=== PATIENT | male | born 1965 | race Caucasian/White ===

== ENCOUNTER → 2017-04-21 06:59 | Outpatient (CLI) | payer BC, SELFPAY ==
--- NOTE | 2017-04-21 | CA_ITS ---
PROCEDURE: 2-D M-mode and color Doppler study INDICATIONS FOR THE TEST: Chest pain+ COPD Heart Murmur Tobacco Smoking+ Palpitations Fatigue+ Syncope Edema+ Hypertension+Diabetes Mellitus Rheumatic Fever SOB+MEDINA+Obesity+Hyperlipidemia Family History HD Additional History Definity contrast utilized PATIENT INFORMATION HEIGHT: 70 WEIGHT: 255 GENDER: Male B/P: 152/99 2-D/M-MODE INTERPRETATION: 2-D MEASUREMENTS OBSERVED VALUES IN CMS Right Ventricular Dimension (RVDd) 2.3 Interventricular Septum (Thickness)(IVsd) 1.1 Left Ventricular Internal Dimensions(LVIDd) 5.4 Left Ventricular Posterior Wall (Thickness)(LVPWd) 1.1 Aortic Root 3.3 Aortic Cusp Separation 2.2 Left Atrial Dimensions (LAD) 4.8 2D 1. Left atrium is moderately enlarged, left ventricle is normal size, there is mild concentric left ventricular hypertrophy, visually estimated ejection fraction approximately 40-45%, there appears to be moderate hypokinesis involving mid to distal septum and apical wall, Definity contrast was utilized to delineate endocardial surfaces. 2. The right atrium and right ventricle are relatively normal size and function. 3. The aortic valve is minimally thickened and fibrosed. 4. The mitral and tricuspid valve leaflets are minimally thickened. 5. The pulmonic valve is poorly visualized. 6. No significant pericardial effusion noted. DOPPLER INTERROGATION: Doppler interrogation of the aortic, mitral and tricuspid valvular presence of mild to moderate mitral and mild tricuspid regurgitation, tricuspid regurgitant jet velocity is insufficient for calculation of the right ventricular systolic pressure, grade 1 diastolic dysfunction seen with tissue Doppler evidence of raised left atrial pressure. CONCLUSION: 1. Moderately enlarged left atrium, normal left ventricular size, mild concentric left ventricular hypertrophy, visually estimated ejection fraction of 40-45%, with the segmental wall motion abnormality described above, Definity contrast was utilized to delineate endocardial surfaces. Grade 1 diastolic dysfunction seen with tissue Doppler evidence of raised left atrial pressure. 2. Mild mitral and tricuspid regurgitation 3. No significant pericardial effusion noted.
--- NOTE | 2017-04-21 07:06 | NM_ITS ---
History and Indications: Hypertension, diabetes, chronic tobacco use chest pain and fatigue Procedure: Patient received a 0.4 mg of Lexiscan, resting heart rate was 74 bpm pressure 152/99, with Lexiscan maximum heart rate achieved was 103 bpm is less than 85% of the maximum predicted heart rate and a blood pressure was 128/88, with Lexiscan patient complained chest pressure and shortness of breath. Electrocardiogram: Resting electrocardiogram showed sinus rhythm nonspecific ST-T changes, with Lexiscan there is less than 1.[address] segment depression noted from the baseline EKG. The EKG portion of the Lexiscan Myoview is nondiagnostic. Cardiac stress and resting SPECT images: Cardiac stress and the rest images were obtained using technetium 99 Myoview 10.6 mCi at rest and 30.4 mCi at stress, gated SPECT further analysis of segmental wall motion and calculation of the ejection fraction was also done. Cardiac stress and rest SPECT images show decreased tracer activity in the anteroapical, apical and inferoapical wall in a fixed pattern consistent with area of prior nontransmural myocardial scarring, no significant tiffanie-infarct ischemia seen, computer derived ejection fraction 35%, with marked hypokinesis involving the anteroapical, apex and inferoapical wall. Right ventricle is normal size and contractility, left ventricle is dilated both stress and rest. Conclusion: 1. The EKG portion of the Lexiscan Myoview is nondiagnostic. 2. Scintigraphic evidence of nontransmural myocardial scarring involving the anteroapical, apex and inferoapical wall, computer derived ejection action is 35% with multiple segmental wall motion abnormality as described above. Left ventricle is dilated both stress and rest, right ventricle is normal size and contractility. 3. Abnormal Lexiscan Myoview study.
--- NOTE | 2017-04-21 09:38 | HMH.ITSHM ---
CYMBALTA, HCTZ, LOSARTAN/HCTZ, SEROQUEL
== END ==
PROVIDERS: Family Provider Family Medicine; PCP Family Medicine; Visit Provider Internal Medicine
DX: R06.00 Dyspnea, unspecified (principal); R51 Headache; E78.2 Mixed hyperlipidemia; G47.9 Sleep disorder, unspecified; I10 Essential (primary) hypertension; G47.00 Insomnia, unspecified; R53.83 Other fatigue; I20.9 Angina pectoris, unspecified
CPT/HCPCS: 78452; 93017; 93306; A9502; J2785

== ENCOUNTER → 2017-05-04 14:24 | Outpatient (CLI) | payer BC, SELFPAY ==
[2017-05-04 17:25] LABS: Anion Gap 12.7 mEq/L (5-15); Blood Urea Nitrogen 15 mg/dL (7-18); Carbon Dioxide 29 mmol/L (21.0-32.0); Chloride 103 mmol/L (98-107); Creatinine,Serum 1.06 mg/dL (0.70-1.30); Estimated Glomerular Filt Rate 74 ml/min (>60); GFR (African American) 89 ML/MIN (>60); Glucose 89 mg/dL (74-106); Potassium 4.7 mmoL/L (3.5-5.1); Sodium 140 mmol/L (136-145)
== END ==
PROVIDERS: Family Provider Family Medicine; PCP Family Medicine; Visit Provider Internal Medicine Cardiovascular Disease
DX: I10 Essential (primary) hypertension (principal); R94.39 Abnormal result of other cardiovascular function study
CPT/HCPCS: 36415; 80048

== ENCOUNTER → 2017-05-05 06:57 | Day surgery (SDC) | payer BC, SELFPAY ==
[2017-05-05] VITALS (14 sets, daily range): BP systolic 113–160; BP diastolic 58–99; PULSE 57–86; RESP 16–18; TEMP 36.6; O2SAT 90–96; BMI 37.4; BMI 36.1
--- NOTE | 2017-05-05 07:00 | IR_ITS ---
CARDIAC CATHETERIZATION DATE OF CATHETERIZATION:05/05/2017 8:29 AM PROCEDURES: 1. Left heart catheterization 2. Left ventriculogram 3. Selective coronary angiogra INDICATION FOR TEST: 1. Abnormal high risk Myoview 2. Systolic congestive heart failure ejection fraction 30% 3. Angina pectoris 4. Risk factors for coronary artery disease Informed consent was obtained prior to the procedure. COMPLICATIONS: None ESTIMATED BLOOD LOSS: Less than 10 ml. TECHNIQUE: One percent lidocaine used to anesthetize the right anterior aspect of the wrist. The right radial artery was accessed via the Seldinger technique. A 6 Iraqi sheath was placed in the right radial artery. 2.5 mg of verapamil, 800 mcg of nitroglycerin and 5000 U Heparin were given through the arterial sheath. The trap catheter was also used to perform left heart catheterization and left ventriculography. At the end of the procedure the patient was transferred to the post-op holding area in stable condition for arterial sheath removal. ANGIOGRAPHIC RESULTS: 1. The left main artery normal 2. The left anterior descending artery has proximal mild luminal irregularities with mid vessel tendon 20% nonflow limiting stenoses 3. The circumflex artery is a dominant vessel and gives rise to a large ramus intermedius which has proximal eccentric 20% stenosis. The true circumflex artery itself is a large caliber vessel with mild 10-20% luminal irregularities 4. The right coronary artery is a nondominant vessel and has an 80% stenosis after the RV marginal branch. Distally the vessel supplies a small amount of myocardium 5. The PALMA ventriculogram reveals left ventricular dilatation with reduced ejection fraction estimated at 30% 6. The left ventricular end-diastolic pressure 20 mmHg IMPRESSION: 1. Nonischemic dilated cardiomyopathy 2. Nonflow limiting coronary artery disease 3. Reduced ejection fraction with left ventricular dilatation 4. Mildly elevated LVEDP PLAN: 1. Standard therapy for dilated cardiomyopathy 2. Risk factor modification
[2017-05-05 07:47] LABS: Hemoglobin 15.3 g/dL (14.1-18.0); White Blood Count 6.5 K/mm3 (4.8-10.8)
[2017-05-05 07:48] LABS: Basophils % 0.7 % (0.1-2.0); Hematocrit 47.4 % (42.0-52.0); Lymphocytes # 1.9 K/mm3 (0.7-4.5); Lymphocytes % 30.2 K/mm3 (10-50); Mean Corpuscular HGB Conc 32.2 g/dL (31.8-35.4); Mean Corpuscular Hemoglobin 27.8 pg (27.0-31.2); Mean Corpuscular Volume 86.1 fl (80-94); Mean Platelet Volume 8.9 fl (7.4-10.4); Monocytes % 7.4 % (1.7-9.3); Neutrophils # 3.8 K/mm3 (1.8-7.8); Neutrophils % 58.8 % (37.0-80.0); Platelet Count 143 K/mm3 (142-424); Red Cell Distribution Width 13.3 % (11.5-17.5)
[2017-05-05 07:49] LABS: Eosinophils # 0.2 K/mm3 (0.0-0.4); Monocytes # 0.5 K/mm3 (0.1-1.0)
[2017-05-05 07:52] LABS: Anion Gap 9.8 mEq/L (5-15); Blood Urea Nitrogen 18 mg/dL (7-18); Carbon Dioxide 29 mmol/L (21.0-32.0); Chloride 105 mmol/L (98-107); Creatinine Clearance Estimated 154 mL/min (0-300); Creatinine,Serum 0.93 mg/dL (0.70-1.30); Estimated Glomerular Filt Rate 86 ml/min (>60); GFR (African American) 104 ML/MIN (>60); Glucose 99 mg/dL (74-106); Potassium 3.8 mmoL/L (3.5-5.1); Sodium 140 mmol/L (136-145)
== END ==
PROVIDERS: Family Provider Family Medicine; PCP Family Medicine; Visit Provider Internal Medicine
DX: I10 Essential (primary) hypertension (principal); I20.9 Angina pectoris, unspecified; E78.2 Mixed hyperlipidemia; Z72.0 Tobacco use; I50.20 Unspecified systolic (congestive) heart failure; I42.0 Dilated cardiomyopathy; R53.83 Other fatigue; R06.09 Other forms of dyspnea
CPT/HCPCS: 80048; 85025; 93458; 99152; C1725; C1769; J1644; Q9967

== ENCOUNTER → 2017-05-19 09:19 | Outpatient (CLI) | payer BC, SELFPAY ==
[2017-05-19 09:39] LABS: Anion Gap 9.3 mEq/L (5-15); Blood Urea Nitrogen 19 mg/dL (7-18); Carbon Dioxide 31 mmol/L (21.0-32.0); Chloride 103 mmol/L (98-107); Creatinine,Serum 1.14 mg/dL (0.70-1.30); Estimated Glomerular Filt Rate 68 ml/min (>60); GFR (African American) 82 ML/MIN (>60); Glucose 116 mg/dL (74-106); Sodium 139 mmol/L (136-145)
[2017-05-19 09:44] LABS: Potassium 4.3 mmoL/L (3.5-5.1)
== END ==
PROVIDERS: Family Provider Family Medicine; PCP Family Medicine; Visit Provider Internal Medicine Cardiovascular Disease
DX: R06.83 Snoring (principal); R06.00 Dyspnea, unspecified; I42.8 Other cardiomyopathies; I50.23 Acute on chronic systolic (congestive) heart failure; I10 Essential (primary) hypertension
CPT/HCPCS: 36415; 80048

== ENCOUNTER → 2017-05-30 12:24 | Outpatient (CLI) | payer BC, SELFPAY ==
[2017-05-30 14:02] LABS: Anion Gap 10.4 mEq/L (5-15); Blood Urea Nitrogen 20 mg/dL (7-18); Carbon Dioxide 31 mmol/L (21.0-32.0); Chloride 105 mmol/L (98-107); Creatinine,Serum 1.18 mg/dL (0.70-1.30); Estimated Glomerular Filt Rate 65 ml/min (>60); GFR (African American) 79 ML/MIN (>60); Glucose 90 mg/dL (74-106); Potassium 4.4 mmoL/L (3.5-5.1); Sodium 142 mmol/L (136-145)
== END ==
PROVIDERS: Family Provider Family Medicine; PCP Family Medicine; Visit Provider Internal Medicine Cardiovascular Disease
DX: I25.118 Atherosclerotic heart disease of native coronary artery with other forms of angina pectoris (principal); I50.23 Acute on chronic systolic (congestive) heart failure; I42.8 Other cardiomyopathies; E78.2 Mixed hyperlipidemia
CPT/HCPCS: 36415; 80048; 83880

== ENCOUNTER → 2017-06-09 09:10 | Outpatient (CLI) | payer BC, SELFPAY ==
[2017-06-09 09:33] LABS: Anion Gap 5.7 mEq/L (5-15); Blood Urea Nitrogen 20 mg/dL (7-18); Carbon Dioxide 33 mmol/L (21.0-32.0); Chloride 103 mmol/L (98-107); Creatinine,Serum 1.25 mg/dL (0.70-1.30); Estimated Glomerular Filt Rate 61 ml/min (>60); GFR (African American) 74 ML/MIN (>60); Glucose 100 mg/dL (74-106); Potassium 4.7 mmoL/L (3.5-5.1); Sodium 137 mmol/L (136-145)
== END ==
PROVIDERS: Visit Provider Internal Medicine Cardiovascular Disease
DX: E78.2 Mixed hyperlipidemia (principal); I10 Essential (primary) hypertension
CPT/HCPCS: 36415; 80048; 83880

== ENCOUNTER → 2017-06-28 08:20 | Outpatient (CLI) | payer BC, SELFPAY ==
[2017-06-28 09:24] LABS: Anion Gap 10.7 mEq/L (5-15); Blood Urea Nitrogen 17 mg/dL (7-18); Carbon Dioxide 34 mmol/L (21.0-32.0); Chloride 103 mmol/L (98-107); Creatinine,Serum 1.28 mg/dL (0.70-1.30); Estimated Glomerular Filt Rate 59 ml/min (>60); GFR (African American) 72 ML/MIN (>60); Glucose 120 mg/dL (74-106); Potassium 3.7 mmoL/L (3.5-5.1); Sodium 144 mmol/L (136-145)
== END ==
PROVIDERS: Internal Medicine Cardiovascular Disease; Visit Provider Internal Medicine
DX: I10 Essential (primary) hypertension (principal); I50.20 Unspecified systolic (congestive) heart failure; E78.2 Mixed hyperlipidemia; I42.8 Other cardiomyopathies; I50.23 Acute on chronic systolic (congestive) heart failure; I25.118 Atherosclerotic heart disease of native coronary artery with other forms of angina pectoris; R53.83 Other fatigue
CPT/HCPCS: 36415; 80048

== ENCOUNTER → 2017-07-04 13:22 | Outpatient (CLI) | payer BC, SELFPAY ==
--- NOTE | 2017-07-04 13:26 | NM_ITS ---
Cardiac MUGA scan Indication for the test: Congestive heart failure, hypertension, tobacco use, chest pain, shortness of breath and fatigue Procedure: Patient received total of 24.2 mCi of technetium 99 sodium pretechnitate, resting MUGA scan was performed in the standard view. Results: Resting MUGA scan shows an ejection fraction of 48% with no obvious regional wall motion abnormality.
== END ==
PROVIDERS: Family Provider Family Medicine; PCP Family Medicine; Visit Provider Internal Medicine Cardiovascular Disease
DX: I42.8 Other cardiomyopathies (principal); I50.23 Acute on chronic systolic (congestive) heart failure; E78.2 Mixed hyperlipidemia; R51 Headache; I50.20 Unspecified systolic (congestive) heart failure; I25.10 Atherosclerotic heart disease of native coronary artery without angina pectoris; I20.9 Angina pectoris, unspecified; I10 Essential (primary) hypertension; R53.83 Other fatigue; F17.200 Nicotine dependence, unspecified, uncomplicated
CPT/HCPCS: 78473; A9512; A9560

== ENCOUNTER 2017-10-19 13:30 | Outpatient (RCR) | payer BC, SELFPAY ==
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
== END 2017-10-19 13:31 | disposition home or self-care (01) ==
LOC: PT 13:30
PROVIDERS: Family Provider Family Medicine; PCP Family Medicine; Visit Provider Nurse Practitioner
DX: S16.1XXA Strain of muscle, fascia and tendon at neck level, initial encounter (principal); S43.492A Other sprain of left shoulder joint, initial encounter
CPT/HCPCS: 97010; 97014; 97110; 97140; 97163; G0283

== ENCOUNTER → 2017-10-26 10:50 | Outpatient (CLI) | payer BC, SELFPAY ==
--- NOTE | 2017-10-26 10:56 | XR_ITS ---
EXAM: XR thoracic spine 3V HISTORY: ITS.REASON: DECREASED SENSATION Comparison: None FINDINGS: There is a bone plate along the lower cervical spine. Normal alignment. Mild degenerative disc disease involves the midthoracic spine with minimal endplate osteophytes. No fracture or dislocation. No lytic or blastic change. IMPRESSION: Mild thoracic spondylosis, no acute finding
--- NOTE | 2017-10-26 10:56 | XR_ITS ---
EXAM: XR cervical spine 5V HISTORY: ITS.REASON: DECREASED SENSATION ORDERING PHYSICIAN: Lesli Hallman PATIENT AGE: 51 years COMPARISON: None FINDINGS: Normal alignment. Prior anterior cervical disc fusion at C5-C6 and C7 with anterior bone plate. Normal alignment. Moderate foraminal narrowing is present on the right at C2-C3 from facet hypertrophic change and with mild foraminal narrowing on the right at C5-6 from uncovertebral hypertrophy. Left-sided foraminal narrowing is present at C4-5 and 56 from uncovertebral hypertrophy. IMPRESSION: 1. Prior anterior cervical disc fusion at C5-C6 and C6-C7. 2. Facet and uncovertebral hypertrophy with foraminal narrowing as described above.
== END ==
PROVIDERS: PCP Nurse Practitioner; Visit Provider Nurse Practitioner
DX: R20.8 Other disturbances of skin sensation (principal)
CPT/HCPCS: 72050; 72072

== ENCOUNTER → 2017-11-06 10:56 | Outpatient (CLI) | payer BC, SELFPAY ==
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
== END ==
PROVIDERS: Family Provider Family Medicine; PCP Nurse Practitioner; Visit Provider Nurse Practitioner
DX: R20.8 Other disturbances of skin sensation (principal); R29.898 Other symptoms and signs involving the musculoskeletal system
CPT/HCPCS: 72141; 76376

== ENCOUNTER → 2017-11-27 12:40 | Outpatient (POV) | payer BC, SELFPAY ==
[2017-11-27 13:00] VITALS: BP 139/85; PULSE 79; RESP 18; O2SAT 98
--- NOTE | 2017-11-27 13:28 | HMH.PMCON ---
Assessment and Plan (1) Degenerative disc disease Current visit: Yes Status: Chronic Qualifiers: Spinal region: mid-cervical Mid-cervical spinal level: unspecified Qualified Code(s): M50.320 - Other cervical disc degeneration, mid-cervical region, unspecified level Category: Medical - Assessment and plan all Dx Assessment and Plan for all problems:: I discussed with the patient that there is not much we can do until he is past surgery. We will start him on Celebrex 100 mg 1 p.o. twice daily and see if this helps with some of his joint pain. Follow up with him in 2 months. This note was dictated using voice recognition software and may contain errors or omissions HPI - Data of Consult Consult date: 11/27/17 Requesting Physician: Nyla Alvarez APRN Primary Care Provider: Lesli Hallman Family Provider: Maged Sharma MD - Consult Narrative Reason for consult: Arthritic pain History of present illness: Mr. Bassett is a 51 year old male presents today for consultation in regard to his arthritic pain. Patient appears today in a cervical neck brace. Patient states he has surgery scheduled for this upcoming Monday. This will be his stated skin surgery by Dr. Hudson. Patient states most of his pain is generalized in all over. Patient states cold weather increases his pain while heat decreases his pain. Patient states he asked to go to an arthritis specialist and was sent to us. Patient is currently working on getting his disability. Patient states he is tried chiropractic, physical therapy, massage therapy with no relief. Patient rates his pain today a 7 out of 10. Patient states all of his joints hurt. Patient has had his left knee replaced. Patient is having left knee pain 2. Patient is not on any anti-inflammatories. Patient states he takes ibuprofen [id number]. CC: Nyla Alvarez APRN [facility] History I have reviewed the patient's past medical history: Yes Medical History: Reports:: Hyperlipidemia, Hypertension, Migraine Denies:: Cancer, Diabetes Mellitus Type 1, Diabetes Mellitus Type 2, Internal Pacemaker, MRSA, Seizures Laterality Cases: Bilateral: Arthroscopy Knee Other Surgeries: Yes: Cardiac Catheterization, Other. No: Pacemaker Amputation: No Fractures: No - *Social History Smoking Status: Current every day smoker Tobacco Type: cigarettes # Packs/Day (cigarettes): 1 Alcohol Intake: never Alcohol Intake Frequency:: other Occupational Status: unemployed Housing: house Household Members: spouse - Psychiatric History Expresses thoughts of harming self/others: None Suicide Plan Description: No Plan *Family Hx:: Coronary Artery Disease Review of Systems - Review of Systems ROS General: no recent weight change, no fever, no sleep disturbances Respiratory: no cough, no shortness of air, no recurring pulmonary infections Cardiovascular/Peripheral Vascular: No chest pain, No palpitations, no edema, no shortness of breath. Gastrointestinal: no incontinence, normal bowel movements reported Genitourinary: no incontinence Musculoskeletal: Neck pain, back pain, knee pain Psychiatric: normal mood/ affect Neurological: [denies weakness in extremities], [denies balance issues] Meds Home Medications Medication Instructions Recorded Confirmed Type duloxetine 60 mg capsule,delayed 60 mg PO QDAY 04/19/17 07/26/17 History release Donepezil HCl [Aricept 5mg] 5 mg PO DAILY 07/26/17 07/26/17 History clonazePAM [Clonazepam] 0.5 mg PO BID 07/26/17 07/26/17 History aripiprazole 10 mg tablet 5 mg PO DAILY tab 09/07/17 History isosorbide mononitrate ER 120 mg 60 mg PO QAM tab 09/07/17 History tablet,extended release 24 hr lamotrigine 150 mg tablet 200 mg PO BID tab 09/07/17 History metoprolol succinate ER 25 mg 25 mg PO BID tab 09/07/17 History tablet,extended release 24 hr quetiapine 200 mg tablet 100 mg PO QDAY tab 09/07/17 History Doroteo
--- NOTE | 2017-11-27 13:31 | P.CONS_ITS ---
Assessment and Plan (1) Degenerative disc disease Current visit: Yes Status: Chronic Qualifiers: Spinal region: mid-cervical Mid-cervical spinal level: unspecified Qualified Code(s): M50.320 - Other cervical disc degeneration, mid-cervical region, unspecified level Category: Medical - Assessment and plan all Dx Assessment and Plan for all problems:: I discussed with the patient that there is not much we can do until he is past surgery. We will start him on Celebrex 100 mg 1 p.o. twice daily and see if this helps with some of his joint pain. Follow up with him in 2 months. This note was dictated using voice recognition software and may contain errors or omissions HPI - Data of Consult Consult date: 11/27/17 Requesting Physician: Nyla Alvarez APRN Primary Care Provider: Lesli Hallman Family Provider: Maged Sharma MD - Consult Narrative Reason for consult: Arthritic pain History of present illness: Mr. Bassett is a 51 year old male presents today for consultation in regard to his arthritic pain. Patient appears today in a cervical neck brace. Patient states he has surgery scheduled for this upcoming Monday. This will be his stated skin surgery by Dr. Hudson. Patient states most of his pain is generalized in all over. Patient states cold weather increases his pain while heat decreases his pain. Patient states he asked to go to an arthritis specialist and was sent to us. Patient is currently working on getting his disability. Patient states he is tried chiropractic, physical therapy, massage therapy with no relief. Patient rates his pain today a 7 out of 10. Patient states all of his joints hurt. Patient has had his left knee replaced. Patient is having left knee pain 2. Patient is not on any anti-inflammatories. Patient states he takes ibuprofen [id number]. CC: Nyla Alvarez APRN [facility] History I have reviewed the patient's past medical history: Yes Medical History: Reports:: Hyperlipidemia, Hypertension, Migraine Denies:: Cancer, Diabetes Mellitus Type 1, Diabetes Mellitus Type 2, Internal Pacemaker, MRSA, Seizures Laterality Cases: Bilateral: Arthroscopy Knee Other Surgeries: Yes: Cardiac Catheterization, Other. No: Pacemaker Amputation: No Fractures: No - *Social History Smoking Status: Current every day smoker Tobacco Type: cigarettes # Packs/Day (cigarettes): 1 Alcohol Intake: never Alcohol Intake Frequency:: other Occupational Status: unemployed Housing: house Household Members: spouse - Psychiatric History Expresses thoughts of harming self/others: None Suicide Plan Description: No Plan *Family Hx:: Coronary Artery Disease Review of Systems - Review of Systems ROS General: no recent weight change, no fever, no sleep disturbances Respiratory: no cough, no shortness of air, no recurring pulmonary infections Cardiovascular/Peripheral Vascular: No chest pain, No palpitations, no edema, no shortness of breath. Gastrointestinal: no incontinence, normal bowel movements reported Genitourinary: no incontinence Musculoskeletal: Neck pain, back pain, knee pain Psychiatric: normal mood/ affect Neurological: [denies weakness in extremities], [denies balance issues] Meds Home Medications Medication Instructions Recorded Confirmed Type duloxetine 60 mg capsule,delayed 60 mg PO QDAY 04/19/17 07/26/17 History release Donepezil HCl [Aricept 5mg] 5 mg PO DAILY 07/26/17
== END ==
PROVIDERS: Family Provider Family Medicine; PCP Nurse Practitioner; Visit Provider Clinical Nurse Specialist Family Health
DX: M50.320 Other cervical disc degeneration, mid-cervical region, unspecified level (principal)
CPT/HCPCS: 99202

== ENCOUNTER → 2018-01-03 12:23 | Outpatient (CLI) | payer BC, SELFPAY | PROVIDERS: PCP Nurse Practitioner; Visit Provider Internal Medicine Cardiovascular Disease | DX: R06.00 Dyspnea, unspecified (principal); R06.83 Snoring; I10 Essential (primary) hypertension; I42.8 Other cardiomyopathies; I50.20 Unspecified systolic (congestive) heart failure; I50.23 Acute on chronic systolic (congestive) heart failure | CPT/HCPCS: 95806 ==

== ENCOUNTER → 2018-01-22 10:40 | Outpatient (POV) | payer BC, SELFPAY ==
[2018-01-22 11:17] VITALS: BP 177/98; PULSE 70; RESP 18; O2SAT 98; BMI 35.2
--- NOTE | 2018-01-22 11:41 | XR_ITS ---
EXAM: XR lumbar spine min 4V HISTORY: ITS.REASON: BACK PAIN ORDERING PHYSICIAN: Nyla Alvarez PATIENT AGE: 52 years COMPARISON: None FINDINGS: Normal alignment. No fracture or dislocation. No lytic or blastic change. Incidental vascular calcifications are present. Minimal anterior osteophytes are noted. IMPRESSION: 1. No acute finding. 2. Minimal degenerative change
--- NOTE | 2018-01-22 12:24 | HMH.PAINSOAP ---
[facility] Pain Management SOAP Note Subjective:: Patient is a pleasant 52-year-old white male who presents today for follow-up. Patient had neck surgery by Dr. Hudson on 29 November. Patient states that he is healing well. And states most of his pain today is in his low back. Patient does not have any recent imaging of his low back. Patient is describing facet-like pain. Patient states it stays in his low and does not radiate. He states that twisting motions make it worse. He rates it a 6 out of 10. ROS General: no recent weight change, no fever, no sleep disturbances Respiratory: no cough, no shortness of air, no recurring pulmonary infections Cardiovascular/Peripheral Vascular: No chest pain, No palpitations, no edema, no shortness of breath. Gastrointestinal: no incontinence, normal bowel movements reported Genitourinary: no incontinence Musculoskeletal: Back pain Psychiatric: normal mood/ affect, Neurological: [denies weakness in extremities], [denies balance issues] Objective:: Physical Exam General: Alert and oriented x3, no acute distress, pleasant and cooperative, [on room air] Lungs: Resps E/U, Symmetrical chest expansion, Eyes: PERRL Musculoskeletal: Flexion and extension of lumbar spine somewhat guarded secondary to pain, deep tendon reflexes normal, strength in upper and lower extremities [5/5], antalgic gait noted, positive Kemps test bilaterally lumbar spine Neurological: speech clear, 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 Patient does not know if he is interested in this. We will send him for an x-ray to help determine pathology. If he is interested we will schedule him for an L3-L4 L4-L5 lumbar medial branch block/facet joint injection. This note was dictated using voice recognition software and may contain errors or omissions
--- NOTE | 2018-04-16 08:04 | PC.NURSE ---
2 refills faxed to [facility] for celebrex 200mg capsule bid per provider order
== END ==
PROVIDERS: PCP Nurse Practitioner; Visit Provider Clinical Nurse Specialist Family Health
DX: M51.36 Other intervertebral disc degeneration, lumbar region (principal); M12.88 Other specific arthropathies, not elsewhere classified, other specified site; M96.1 Postlaminectomy syndrome, not elsewhere classified
CPT/HCPCS: 72110; 99213

== ENCOUNTER → 2018-06-14 10:35 | Outpatient (CLI) | payer BC, SELFPAY ==
--- NOTE | 2018-06-14 10:41 | CA_ITS ---
PROCEDURE: 2-D M-mode and color Doppler study INDICATIONS FOR THE TEST: Chest pain COPD Heart Murmur Tobacco SmokingX Palpitations Fatigue Syncope Edema HypertensionXDiabetes Mellitus Rheumatic Fever SOB MEDINA Obesity HyperlipidemiaX Family History HD Additional History CM EF 30% CATH 05/05/17 PATIENT INFORMATION HEIGHT: 70 WEIGHT:270 GENDER: Male B/P:122/78 2-D/M-MODE INTERPRETATION: 2-D MEASUREMENTS OBSERVED VALUES IN CMS Right Ventricular Dimension (RVDd) 2.1 Interventricular Septum (Thickness)(IVsd) 1.2 Left Ventricular Internal Dimensions(LVIDd) 5.7 Left Ventricular Posterior Wall (Thickness)(LVPWd) 1.1 Aortic Root 3.0 Aortic Cusp Separation Left Atrial Dimensions (LAD) 3.3 2D 1. Left atrium is mildly enlarged, left ventricle is normal size, mild concentric left ventricular hypertrophy, visually estimated ejection fraction of 55% with no regional wall motion abnormality. 2. The right atrium and right ventricle are normal size and contractility. 3. The aortic valve is minimally thickened and fibrosed. 4. The mitral and tricuspid valvular grossly normal. 5. The pulmonic valve is poorly visualized. 6. No significant pericardial effusion noted. DOPPLER INTERROGATION: Doppler interrogation of the aortic, mitral and tricuspid valvular presence of mild mitral and tricuspid regurgitation, tricuspid regurgitation jet velocity is inadequate for calculation of the ventricular systolic pressure, grade 1 diastolic dysfunction seen without tissue Doppler evidence of raised left atrial pressure. CONCLUSION: 1. Mildly enlarged left atrium, normal left ventricular size, mild concentric left ventricular hypertrophy, visually estimated ejection fraction 55% with no regional wall motion abnormality, grade 1 diastolic dysfunction seen without tissue Doppler evidence of raised left atrial pressure. 2. Mild mitral and tricuspid regurgitation 3. No significant pericardial effusion noted.
[2018-06-14 12:32] LABS: Anion Gap 13.3 mEq/L (5-15); Blood Urea Nitrogen 17 mg/dL (7-18); Calcium 9.2 mg/dL (8.5-10.1); Carbon Dioxide 29 mmol/L (21.0-32.0); Chloride 103 mmol/L (98-107); Creatinine,Serum 1.25 mg/dL (0.70-1.30); Estimated Glomerular Filt Rate 61 ml/min (>60); GFR (African American) 74 ML/MIN (>60); Glucose 144 mg/dL (74-106); Potassium 4.3 mmoL/L (3.5-5.1); Sodium 141 mmol/L (136-145)
== END ==
PROVIDERS: Visit Provider Internal Medicine Cardiovascular Disease
DX: I25.118 Atherosclerotic heart disease of native coronary artery with other forms of angina pectoris (principal); I42.8 Other cardiomyopathies; I50.23 Acute on chronic systolic (congestive) heart failure; E78.2 Mixed hyperlipidemia; F17.200 Nicotine dependence, unspecified, uncomplicated; I10 Essential (primary) hypertension; R51 Headache; R53.83 Other fatigue
CPT/HCPCS: 36415; 80048; 83880; 93306

== ENCOUNTER → 2018-07-09 10:05 | Outpatient (CLI) | payer BC, SELFPAY ==
[2018-07-09 12:24] LABS: Blood Urea Nitrogen 16 mg/dL (7-18); Calcium 9.5 mg/dL (8.5-10.1); Carbon Dioxide 30 mmol/L (21.0-32.0); Chloride 104 mmol/L (98-107); Creatinine,Serum 1.15 mg/dL (0.70-1.30); Estimated Glomerular Filt Rate 67 ml/min (>60); GFR (African American) 81 ML/MIN (>60); Glucose 101 mg/dL (74-106); Sodium 141 mmol/L (136-145)
== END ==
PROVIDERS: Visit Provider Internal Medicine Cardiovascular Disease
DX: E78.5 Hyperlipidemia, unspecified (principal); I11.9 Hypertensive heart disease without heart failure; I25.118 Atherosclerotic heart disease of native coronary artery with other forms of angina pectoris
CPT/HCPCS: 36415; 80048

== ENCOUNTER → 2018-09-03 13:47 | Outpatient (POV) | payer BC, SELFPAY ==
[2018-09-03 14:20] VITALS: BP 126/78; PULSE 92; RESP 18; O2SAT 98; BMI 35.2
--- NOTE | 2018-09-03 15:37 | HMH.PAINSOAP ---
[facility] Pain Management SOAP Note Subjective:: Patient is a pleasant 52-year-old white male who presents today for follow-up for low back pain. The patient had neck surgery by Dr. Hudson in November 2017 and says that he is doing well. He is currently taking Celebrex 200 mg p.o. twice daily and says that this is working for him. He denies any side effects to the medication. He rates his pain a 4 out of 10 today. ROS General: no recent weight change, no fever, no sleep disturbances Respiratory: no cough, no shortness of air, no recurring pulmonary infections Cardiovascular/Peripheral Vascular: No chest pain, No palpitations, no edema, no shortness of breath. Gastrointestinal: no incontinence, normal bowel movements reported Genitourinary: no incontinence Musculoskeletal: Back pain Psychiatric: normal mood/ affect, [denies depression], [denies anxiety] Neurological: [denies weakness in extremities], [denies balance issues] Objective:: Physical Exam General: Alert and oriented x3, no acute distress, pleasant and cooperative, [on room air] Lungs: Resps E/U, Symmetrical chest expansion, Eyes: PERRL Musculoskeletal: Flexion and extension of lumbar spine somewhat guarded secondary to pain, deep tendon reflexes normal, strength in upper and lower extremities [5/5], [abnormal gait noted] Neurological: 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 twice daily we will follow-up with him in 6 months. Been instructed to call the office if he has any concerns prior to his next appointment. Dr. Anne has reviewed this note and agrees with this plan of care. This note was dictated using voice recognition software and may contain errors or omissions
--- NOTE | 2018-09-03 16:01 | P.CONS_ITS ---
[facility] Pain Management SOAP Note Subjective:: Patient is a pleasant 52-year-old white male who presents today for follow-up for low back pain. The patient had neck surgery by Dr. Hudson in November 2017 and says that he is doing well. He is currently taking Celebrex 200 mg p.o. twice daily and says that this is working for him. He denies any side effects to the medication. He rates his pain a 4 out of 10 today. ROS General: no recent weight change, no fever, no sleep disturbances Respiratory: no cough, no shortness of air, no recurring pulmonary infections Cardiovascular/Peripheral Vascular: No chest pain, No palpitations, no edema, no shortness of breath. Gastrointestinal: no incontinence, normal bowel movements reported Genitourinary: no incontinence Musculoskeletal: Back pain Psychiatric: normal mood/ affect, [denies depression], [denies anxiety] Neurological: [denies weakness in extremities], [denies balance issues] Objective:: Physical Exam General: Alert and oriented x3, no acute distress, pleasant and cooperative, [on room air] Lungs: Resps E/U, Symmetrical chest expansion, Eyes: PERRL Musculoskeletal: Flexion and extension of lumbar spine somewhat guarded secondary to pain, deep tendon reflexes normal, strength in upper and lower extremities [5/5], [abnormal gait noted] Neurological: 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 twice daily we will follow-up with him in 6 months. Been instructed to call the office if he has any concerns prior to his next appointment. Dr. Anne has reviewed this note and agrees with this plan of care. This note was dictated using voice recognition software and may contain errors or omissions
== END ==
PROVIDERS: PCP Nurse Practitioner; Visit Provider Clinical Nurse Specialist Family Health
DX: M51.36 Other intervertebral disc degeneration, lumbar region (principal); M47.896 Other spondylosis, lumbar region; M96.1 Postlaminectomy syndrome, not elsewhere classified
CPT/HCPCS: 99212

== ENCOUNTER → 2018-11-19 10:34 | Outpatient (CLI) | payer BC, SELFPAY ==
--- NOTE | 2018-11-19 10:38 | XR_ITS ---
PROCEDURE: XR ELBOW RT MIN 3V Patient Age:52Y CLINICAL INDICATION: RT ELBOW BURSITIS COMPARISON: No exams were available for comparison FINDINGS: No fracture or dislocation. No lytic or blastic change. There is normal mineralization.. No joint effusion. No elevation of anterior fat pad The elbow joint space well maintained both medial and lateral but some early lipping at the lateral margin of radial head noted may reflect old injury or scant degenerative changes but the joint space is well maintained at lateral elbow Soft tissue density and swelling posteriorly overlying the olecranon--would be compatible with olecranon bursitis as suggested by history. No foreign body or calcifications here. IMPRESSION: Soft tissue density in swelling posterior to the elbow, and olecranon-compatible with olecranon bursitis. No joint effusion. No acute fracture or acute findings. Dictated by: Torrey Hilton MD 11/19/2018 14:00 Signed by: <Electronically signed by Torrey Hilton MD in [place]> 11/19/2018 14:00
== END ==
PROVIDERS: PCP Nurse Practitioner; Visit Provider Nurse Practitioner
DX: M70.21 Olecranon bursitis, right elbow (principal)
CPT/HCPCS: 73080

== ENCOUNTER → 2019-03-04 12:53 | Outpatient (POV) | payer BC, SELFPAY ==
[2019-03-04 13:24] VITALS: BP 141/78; PULSE 82; RESP 18; O2SAT 99; BMI 35.4
--- NOTE | 2019-03-04 13:30 | P.CONS_ITS ---
[facility] Pain Management SOAP Note Subjective:: Patient is a pleasant 52-year-old white male who presents today for follow-up. He is being treated for low back pain. Patient says the pain does not radiate but remains in bilateral low back. He says the pain is worse with walking. He also says that he continues to have pain even when sitting and at rest. He rates his pain a 9 out of 10 today. Patient was treated in the past for the same pain in the clinic with Celebrex. He says that he got great relief with Celebrex up to 80%, however, his pain has returned. He admits that he is very concerned about injective therapy stating I am afraid it will paralyze me . Patient says that this is the reason why he has postponed any type of injective therapy. He does take anti-inflammatories. He also performs a home stretching program. Patient says ice and heat therapies do give him about 30% relief. Review of Systems General: No recent weight changes, no fever, no sleep disturbances Respiratory: No cough, no shortness of air, no recurring pulmonary infections Cardiovascular/peripheral vascular: No chest pain, no palpitations, no edema, no shortness of breath Gastrointestinal: No new onset incontinence, normal bowel movements reported Genitourinary: No new onset incontinence Musculoskeletal: Low back pain Psychiatric: Normal mood/affect Neurological: [Denies weakness in extremities], [denies balance issues] Objective:: Physical exam General: Alert and oriented x3, no acute distress, pleasant and cooperative, [on room air] Lungs: Respirations even and unlabored, symmetrical chest expansion Eyes: PERRL Musculoskeletal: Flexion and extension of lumbar spine somewhat guarded secondary to pain, deep tendon reflexes normal, strength in upper and lower extremities [5/5], [abnormal gait noted] Neurological: Speech clear, air and water filler equal, no gross sensory deficit Assessment:: Degenerative disc disease lumbar spine, postlaminectomy syndrome cervical spine, facet arthropathy lumbar spine Plan:: Given his symptoms, the patient would likely benefit from a lumbar epidural steroid injection. We will schedule him for the injection at L4-L5. He is not on anticoagulation therapy. He will continue with his anti-inflammatories and a home stretching program. He will follow-up with us in the clinic following his injection to reassess his symptoms. He has been instructed to contact clinic if he has any concerns before his next appointment. Dr. Anne has reviewed this note and agrees with this plan of care. This note was dictated using voice recognition software and make contain errors or omissions. [facility] History I have reviewed the patient's past medical history: Yes Medical History: Reports:: Hyperlipidemia, Hypertension, Migraine Denies:: Cancer, Diabetes Mellitus Type 1, Diabetes Mellitus Type 2, Internal Pacemaker, MRSA, Seizures *Have you ever received a pneumonia vaccine?: Yes *Have you received a flu vaccine this season?: Yes Laterality Cases: Bilateral: Arthroscopy Knee Other Surgeries: Yes: Cardiac Catheterization, Other. No: Pacemaker Amputation: No Fractures: No - *Social History Smoking Status: Current every day smoker Tobacco Type: cigarettes # Packs/Day (cigarettes): 1 Alcohol Intake: never Alcohol Intake Frequency:: other Substance Use Type: denies use *Occupational Status:: other Housing: house Household Members: spouse *Travel in the last 8 weeks: None Family Hx:: Coronary Artery Disease
== END ==
PROVIDERS: PCP Nurse Practitioner; Visit Provider Clinical Nurse Specialist Family Health
DX: M51.36 Other intervertebral disc degeneration, lumbar region (principal); M96.1 Postlaminectomy syndrome, not elsewhere classified; M54.06 Panniculitis affecting regions of neck and back, lumbar region
CPT/HCPCS: 99212

== ENCOUNTER → 2019-04-08 08:41 | Outpatient (POV) | payer BC, SELFPAY ==
--- NOTE | 2019-04-08 09:16 | HMH.PAINSOAP ---
[facility] Pain Management SOAP Note Subjective:: Patient is a pleasant 53-year-old white male who presents today for follow-up after lumbar epidural steroid injection. Patient states he got over 50% relief and is doing better he rates his pain today 4-10. Patient is interested in trying gabapentin to see if this is beneficial for his pain. He is had in the past and done well with it. Ancelmo #[id number] reviewed appropriate. We will start him on gabapentin and see him back in 1 month. Most of his pain is in his low back and legs. ROS General: no recent weight change, no fever, no sleep disturbances Respiratory: no cough, no shortness of air, no recurring pulmonary infections Cardiovascular/Peripheral Vascular: No chest pain, No palpitations, no edema, no shortness of breath. Gastrointestinal: no new onset incontinence, normal bowel movements reported Genitourinary: no new onset incontinence Musculoskeletal: Back pain, leg pain Psychiatric: normal mood/ affect Neurological: [denies new onset weakness in extremities], [denies new onset balance issues] Objective:: Physical Exam General: Alert and oriented x3, no acute distress, pleasant and cooperative, [on room air] Lungs: Resps E/U, Symmetrical chest expansion, Eyes: PERRL Musculoskeletal: Flexion and extension of lumbar spine somewhat guarded secondary to pain, deep tendon reflexes normal, strength in upper and lower extremities [5/5], [abnormal gait noted] Neurological: speech clear, 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 twice daily we will give him a 90-day supply. I will follow-up with him in 1 month and reassess him at that time he is been instructed to call the office if he has any issues prior to his next appointment. Dr. Anne has reviewed this note and agrees with this plan of care. This note was dictated using voice recognition software and may contain errors or omissions [facility] History I have reviewed the patient's past medical history: Yes Medical History: Reports:: Hyperlipidemia, Hypertension, Migraine Denies:: Cancer, Diabetes Mellitus Type 1, Diabetes Mellitus Type 2, Internal Pacemaker, MRSA, Seizures *Have you ever received a pneumonia vaccine?: No *Have you received a flu vaccine this season?: No Laterality Cases: Bilateral: Arthroscopy Knee Other Surgeries: Yes: Cardiac Catheterization, Other. No: Pacemaker Amputation: No Fractures: No - *Social History Smoking Status: Current every day smoker Tobacco Type: cigarettes # Packs/Day (cigarettes): 1 Alcohol Intake: never Alcohol Intake Frequency:: other Substance Use Type: denies use *Occupational Status:: other Housing: house Household Members: spouse *Travel in the last 8 weeks: None Family Hx:: Coronary Artery Disease
[2019-04-08 09:35] VITALS: BP 159/98; PULSE 80; RESP 18; O2SAT 98; BMI 34.4
== END ==
PROVIDERS: PCP Family Medicine; Visit Provider Clinical Nurse Specialist Family Health
DX: M51.16 Intervertebral disc disorders with radiculopathy, lumbar region (principal); E78.5 Hyperlipidemia, unspecified; I10 Essential (primary) hypertension; G43.909 Migraine, unspecified, not intractable, without status migrainosus
CPT/HCPCS: 99212

== ENCOUNTER → 2019-05-02 09:01 | Outpatient (CLI) | payer BC, SELFPAY ==
[2019-05-02 09:22] LABS: Anion Gap 10.3 mEq/L (5-15); Blood Urea Nitrogen 19 mg/dL (7-18); Calcium 9.3 mg/dL (8.5-10.1); Carbon Dioxide 31 mmol/L (21.0-32.0); Chloride 102 mmol/L (98-107); Creatinine,Serum 1.28 mg/dL (0.70-1.30); Estimated Glomerular Filt Rate 59 ml/min (>60); GFR (African American) 71 ML/MIN (>60); Glucose 120 mg/dL (74-106); Potassium 4.3 mmoL/L (3.5-5.1); Sodium 139 mmol/L (137-145)
[2019-05-02 10:29] LABS: Alanine Aminotransferase 28 U/L (21-72); Albumin Level 3.5 g/dL (3.4-5.0); Alkaline Phosphatase 53 U/L (46-116); Aspartate Amino Transferase 15 U/L (15-37); Bilirubin,Direct 0.1 mg/dL (0.0-0.2); Bilirubin,Indirect 0.3 mg/dL (0.0-0.9); Bilirubin,Total 0.4 mg/dL (0.2-1.0); Cholesterol 209 mg/dL (140-200); HDL Cholesterol 26 mg/dL (27-67); LDL Cholesterol 126 mg/dL (0-130); Total Protein,Serum 7.1 g/dL (6.4-8.2); Triglycerides 283 mg/dL (30-200); VLDL Cholesterol 57 mg/dL (0-40)
== END ==
PROVIDERS: Visit Provider Internal Medicine Cardiovascular Disease
DX: I50.9 Heart failure, unspecified (principal); E78.2 Mixed hyperlipidemia; F17.200 Nicotine dependence, unspecified, uncomplicated; I10 Essential (primary) hypertension; I11.9 Hypertensive heart disease without heart failure; I25.118 Atherosclerotic heart disease of native coronary artery with other forms of angina pectoris; I42.8 Other cardiomyopathies; R06.00 Dyspnea, unspecified; R07.89 Other chest pain; R53.83 Other fatigue
CPT/HCPCS: 36415; 80048; 80061; 80076

== ENCOUNTER → 2019-05-10 09:34 | Outpatient (CLI) | payer BC, SELFPAY ==
--- NOTE | 2019-05-10 09:35 | CT_ITS ---
PROCEDURE: CT ANGIO CHEST CLINCIAL INDICATION: pe protocol COMPARISON: No exams were available for comparison TECHNIQUE: IV Contrast: 70ML OPTIRAY 350 Axial images obtained with sagittal and coronal reformats. All CT scans at the facility use one or more dose reduction, viz: automated exposure control, ma/kV adjustment per patient size (including targeted exams where dose is matched to indication, i.e. head), or iterative reconstruction technique. FINDINGS: HEART AND MEDIASTINAL STRUCTURES: There is good opacification of pulmonary arteries with no evidence of pulmonary embolism. There is no evidence of aortic aneurysm or dissection. Ascending aorta measures 4 centimeters. Calcified right hilar lymph nodes are noted. LUNGS AND PLEURAL SPACES: The lungs are emphysematous. Scattered subpleural blebs and emphysematous areas of air trapping are noted. Diffuse scattered ground-glass opacities are seen in both lung gutierrez.. Findings are compatible with indeterminate age interstitial pneumonitis and/or atelectasis. Additionally there is an area of increased density in the inferior most right middle lobe consistent with infiltrate or atelectasis. BONY STRUCTURES: No acute bony abnormalities apparent. UPPER ABDOMEN: There is fatty infiltration of the liver. Calcified splenic granulomas are noted. ADDITIONAL FINDINGS: No other significant abnormalities. IMPRESSION: No evidence of pulmonary embolism aortic aneurysm or dissection. Scattered ground-glass opacities in emphysematous lung gutierrez. Acute pneumonitis or atelectasis should be considered. Small focus of consolidation of the inferior right middle lobe consistent with infiltrate or atelectasis. Dictated by: Abdullahi Tolbert 05/10/2019 10:22 Electronically signed by Abdullahi Tolbert in [place] 05/10/2019 10:22
--- NOTE | 2019-05-10 09:35 | CA_ITS ---
APPROVED REPORT Bilateral Lower Extremity Venous Study for DVT. Unclaimed Property Manager: RHONA GarciaT Indications Lower Extremity Edema: Bilateral Shortness of breath edema Vein Imaging CFV (R): compressive, spontaneous, phasic, augmentation FEM (R): compressive, spontaneous, phasic, augmentation POP (R): compressive, spontaneous, phasic, augmentation PTV (R): Compressible GSV (R): Compressible Peroneals (R):Compressible GAS (R): Compressible CFV (L): compressive, spontaneous, phasic, augmentation FEM (L): compressive, spontaneous, phasic, augmentation POP (L): compressive, spontaneous, phasic, augmentation PTV (L): Compressible GSV (L): Compressible SSV (L): Peroneals (L):Compressible GAS (L): Compressible Findings Study suggests no evidence of DVT of the bilateral lower extremites. Study suggests no evidence of SVT of the bilateral lower extremitites. Conclusion Study suggests no evidence of DVT of the bilateral lower extremites. Study suggests no evidence of SVT of the bilateral lower extremitites. Electronically signed by : Abdullahi Tolbert, 05/10/2019 10:32:54
== END ==
PROVIDERS: PCP Family Medicine; Visit Provider Internal Medicine Cardiovascular Disease
DX: R07.89 Other chest pain (principal); R06.00 Dyspnea, unspecified; R60.9 Edema, unspecified; E78.2 Mixed hyperlipidemia; I11.9 Hypertensive heart disease without heart failure; I25.118 Atherosclerotic heart disease of native coronary artery with other forms of angina pectoris; I42.8 Other cardiomyopathies; R53.83 Other fatigue; F17.200 Nicotine dependence, unspecified, uncomplicated
CPT/HCPCS: 71275; 93970; Q9967

== ENCOUNTER → 2019-05-14 08:44 | Outpatient (POV) | payer BC, SELFPAY ==
[2019-05-14 09:01] VITALS: BP 117/78; PULSE 82; RESP 18; O2SAT 98; BMI 37.3
--- NOTE | 2019-05-14 09:07 | P.CONS_ITS ---
[facility] Pain Management SOAP Note Subjective:: Patient is a pleasant 53-year-old white male who presents today for follow-up for medication refills. Patient was increased in his gabapentin to 60 mg 1 p.o. twice daily. He states that this is extremely beneficial and denies any side effects. Ancelmo #[id number] is 101 reviewed and appropriate. Patient rates his pain a 4 out of 10 and is doing extremely well on his regimen. ROS General: no recent weight change, no fever, no sleep disturbances Respiratory: no cough, no shortness of air, no recurring pulmonary infections Cardiovascular/Peripheral Vascular: No chest pain, No palpitations, no edema, no shortness of breath. Gastrointestinal: no new onset incontinence, normal bowel movements reported Genitourinary: no new onset incontinence Musculoskeletal: Back pain, leg pain Psychiatric: normal mood/ affect Neurological: [denies new onset weakness in extremities], [denies new onset maría elena nce issues] Objective:: Physical Exam General: Alert and oriented x3, no acute distress, pleasant and cooperative, [on room air] Lungs: Resps E/U, Symmetrical chest expansion, Eyes: PERRL Musculoskeletal: Flexion and extension of lumbar spine somewhat guarded secondary to pain, deep tendon reflexes normal, strength in upper and lower extremities [5/5], normal gait noted Neurological: speech clear, investment sales assistant equal, no gross sensory deficits Assessment:: Degenerative disc disease lumbar spine with lumbar radiculopathy Plan:: We will continue the patient on gabapentin 600 mg 1 p.o. twice daily. We will see him back in 3 months reassess his symptoms at that time he has been instructed to call the office if he has any issues prior to his next appointment. Dr. Anne has reviewed this note and agrees with this plan of care. This note was dictated using voice recognition software and may contain errors or omissions [facility] History I have reviewed the patient's past medical history: Yes Medical History: Reports:: Hyperlipidemia, Hypertension, Migraine Denies:: Cancer, Diabetes Mellitus Type 1, Diabetes Mellitus Type 2, Internal Pacemaker, MRSA, Seizures *Have you ever received a pneumonia vaccine?: Yes *Have you received a flu vaccine this season?: Yes Laterality Cases: Bilateral: Arthroscopy Knee Other Surgeries: Yes: Cardiac Catheterization, Other. No: Pacemaker Amputation: No Fractures: No - *Social History Smoking Status: Current every day smoker Tobacco Type: cigarettes # Packs/Day (cigarettes): 1 Alcohol Intake: never Alcohol Intake Frequency:: other Substance Use Type: denies use *Occupational Status:: other Housing: house Household Members: spouse *Travel in the last 8 weeks: None Family Hx:: Coronary Artery Disease
--- NOTE | 2019-06-10 15:15 | PC.NURSE ---
CELEBREX 200MG BID WITH 4 REFILLS CALLED INTO [facility] PER PROVIDER ORDER
== END ==
PROVIDERS: PCP Nurse Practitioner; Visit Provider Clinical Nurse Specialist Family Health
DX: M51.16 Intervertebral disc disorders with radiculopathy, lumbar region (principal)
CPT/HCPCS: 99212

== ENCOUNTER → 2019-05-23 10:06 | Outpatient (CLI) | payer BC, SELFPAY ==
[2019-05-23 12:54] LABS: Chloride 98 mmol/L (98-107); Potassium 4.8 mmoL/L (3.5-5.1); Sodium 137 mmol/L (136-145)
[2019-05-23 12:57] LABS: Anion Gap 13.8 mEq/L (5-15); Blood Urea Nitrogen 15 mg/dl (9-20); Carbon Dioxide 30 mmol/L (22.0-30.0); Estimated Glomerular Filt Rate 78 ml/min (>60); GFR (African American) 95 ML/MIN (>60)
[2019-05-23 12:58] LABS: Glucose 116 mg/dl (74-100)
== END ==
PROVIDERS: Visit Provider Internal Medicine Cardiovascular Disease
DX: E78.2 Mixed hyperlipidemia (principal); E78.5 Hyperlipidemia, unspecified; I11.9 Hypertensive heart disease without heart failure; I20.8 Other forms of angina pectoris; I42.8 Other cardiomyopathies; R60.9 Edema, unspecified
CPT/HCPCS: 36415; 80048

== ENCOUNTER → 2019-09-12 15:06 | Outpatient (CLI) | payer BC, SELFPAY ==
[2019-09-12 16:46] LABS: Chloride 99 mmol/L (98-107)
[2019-09-12 16:47] LABS: Potassium 4.5 mmoL/L (3.5-5.1); Sodium 136 mmol/L (136-145)
[2019-09-12 16:49] LABS: Alanine Aminotransferase 65 U/L (12-78); Anion Gap 9.5 mEq/L (5-15); Aspartate Amino Transferase 52 U/L (17-59); Bilirubin,Unconjugated 0.2 mg/dL (0.0-1.1); Blood Urea Nitrogen 20 mg/dl (9-20); Carbon Dioxide 32 mmol/L (22.0-30.0); Cholesterol 150 mg/dl (140-200); Estimated Glomerular Filt Rate 49 ml/min (>60); GFR (African American) 59 ML/MIN (>60)
[2019-09-12 16:50] LABS: Albumin Level 4.1 g/dl (3.5-5.0); Alkaline Phosphatase 45 U/L (38-126); Bilirubin,Direct 0.3 mg/dl (0.0-0.4); Bilirubin,Indirect 0.2 mg/dL (0.0-0.9); Bilirubin,Total 0.5 mg/dl (0.2-1.3); Calcium 9.7 mg/dl (8.4-10.2); Chol/HDL Ratio 4.7 (1-3.5); Glucose 141 mg/dl (74-100); HDL Cholesterol 32 mg/dl (40-60); Total Protein,Serum 6.9 g/dl (6.3-8.2)
[2019-09-12 16:51] LABS: Triglycerides 403 mg/dl (30-150)
[2019-09-12 17:01] LABS: Direct LDL Cholesterol 74.42 mg/dL (100-129)
== END ==
PROVIDERS: Urology; Visit Provider Internal Medicine Cardiovascular Disease
DX: E78.2 Mixed hyperlipidemia (principal); I10 Essential (primary) hypertension; I42.8 Other cardiomyopathies; R60.9 Edema, unspecified
CPT/HCPCS: 36415; 80048; 80061; 80076

== ENCOUNTER → 2019-11-28 14:52 | Outpatient (POV) | payer BC, SELFPAY ==
[2019-11-28 15:45] VITALS: BP 130/76; PULSE 83; RESP 17; TEMP 37.1; O2SAT 95; BMI 39.4
--- NOTE | 2019-11-28 16:16 | HMH.PAINSOAP ---
[facility] Pain Management SOAP Note Subjective:: Patient is a 53-year-old white male who presents today for medication refills. He has been treated for chronic low back pain. His pain also radiates into his bilateral lower extremities. He is managed with gabapentin 60 mg 1 tablet p.o. twice daily. Patient says that he is continuing to have chronic low back pain that is not improving. He would like to discuss his options. He has tried injections in the past and has not gotten any relief. He rates his pain an 8 out of 10. Patient says his pain is worse with standing and walking as well as with sitting. He has to reposition often with sitting. He says he is unable to sleep due to the pain. He would like to discuss possible implanted devices. He is interested in spinal cord stimulation. He would like to get undergo psychological evaluation for possible spinal cord stimulation. He has tried physical therapy for greater than 6 weeks and continues with a home stretching program. He is tried injections and medications orally. He has also tried ice and heat therapies. Review of Systems General: No recent weight changes, no fever, no sleep disturbances Respiratory: No cough, no shortness of air, no recurring pulmonary infections Cardiovascular/peripheral vascular: No chest pain, no palpitations, no edema, no shortness of breath Gastrointestinal: No new onset incontinence, normal bowel movements reported Genitourinary: No new onset incontinence Musculoskeletal: Low back pain, bilateral lower extremity pain Psychiatric: Normal mood/affect Neurological: [Denies weakness in extremities], [denies balance issues] Objective:: Physical exam General: Alert and oriented x3, no acute distress, pleasant and cooperative, [on room air] Lungs: Respirations even and unlabored, symmetrical chest expansion Eyes: PERRL Musculoskeletal: Flexion and extension of lumbar spine somewhat guarded secondary to pain, deep tendon reflexes normal, strength in upper and lower extremities [5/5], [abnormal gait noted] Neurological: Speech clear, 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 Patient does have a history of bipolar disorder. He is managed with oral medications. We will see him back in the clinic after his psychological evaluation and discuss a further plan of care. We will refill his gabapentin 600 mg 1 tablet p.o. twice daily. Patient will get to 3 months worth of medication. The patient and I specifically discussed risk factors for COVID19. These risks include, but are not limited to age greater than 60, heart or lung disease, diabetes, immunosuppression, and travel. We also discussed NSAIDs may worsen COVID19 infection or symptoms. Patient should not use NSAIDs to treat COVID19 signs or symptoms. Patient was also informed that any type of corticosteroid of any form (oral or injection) will decrease the patient's immune system response and may increase the likelihood of COVID19 infection [address] symptoms[address]. Anne has reviewed this note and agrees with this plan of care. This note was dictated using voice recognition software and make contain errors or omissions. [facility] History I have reviewed the patient's past medical history: Yes Medical History: Reports:: Cardiomyopathy, Coronary Artery Disease, Hyperlipidemia, Hypertension, Migraine Denies:: Cancer, Diabetes Mellitus Type 1, Diabetes Mellitus Type 2, Internal Pacemaker, MRSA, Seizures *Have you ever received a pneumonia vaccine?: No *Have you received a flu vaccine this season?: Yes Laterality Cases: Bilateral: Arthroscopy Knee Other Surgeries: Yes: Cardiac Catheterization, Other. No: Pacemaker Amputation: No Fractures: No - *Social History Smoking Status: Current mis
== END ==
PROVIDERS: Visit Provider Clinical Nurse Specialist Family Health
DX: M51.16 Intervertebral disc disorders with radiculopathy, lumbar region (principal)
CPT/HCPCS: 99212

== ENCOUNTER → 2019-12-13 14:50 | Outpatient (CLI) | payer BC, MEDICARE, SELFPAY ==
--- NOTE | 2019-12-13 | MR_ITS ---
PROCEDURE: MR LUMBAR SPINE WO CON CLINICAL INDICATION: LBP PT. C/O CHRONIC LBP X 3 YEARS. PT DENIES TRAUMA OR INJURY. COMPARISON: MR SPCERVWO MR cervical spine wo con from 11/06/2017 CR [id number] XR lumbar spine min 4V from 01/22/2018 TECHNIQUE: Standard multiplanar multiecho sequences are performed without contrast. 3-D MIP and myelographic images are also rendered and reviewed FINDINGS: There is normal alignment. The spinal cord ends at the T12-L1 level. L1-L2: Unremarkable. L2-L3: Unremarkable. L3-L4: Unremarkable. L4-5: There is a small central disc protrusion with minimal bulging disc and mild facet and ligamentum hypertrophy. The disc protrusion abuts the anterior medial aspect of both L5 nerve roots. There is mild left lateral recess narrowing and mild bilateral foraminal narrowing. L5-S1: Degenerative disc disease with mild bulging disc and small central disc protrusion abutting the anterior medial aspect of the right S1 nerve root. There is mild right lateral recess narrowing. There is mild facet and ligamentum hypertrophy with mild left foraminal narrowing. IMPRESSION: 1. L4-5: There is a small central disc protrusion with minimal bulging disc and mild facet and ligamentum hypertrophy. The disc protrusion abuts the anterior medial aspect of both L5 nerve roots. There is mild left lateral recess narrowing and mild bilateral foraminal narrowing. 2. L5-S1: Degenerative disc disease with mild bulging disc and small central disc protrusion abutting the anterior medial aspect of the right S1 nerve root. There is mild right lateral recess narrowing. There is mild facet and ligamentum hypertrophy with mild left foraminal narrowing. Dictated by: Tim Lyn MD 12/15/2019 06:26 Tim Lyn MD in [place] 12/15/2019 06:26
== END ==
PROVIDERS: PCP Nurse Practitioner; Visit Provider Orthopaedic Surgery
DX: M54.5 Low back pain (principal)
CPT/HCPCS: 72148; 76376

== ENCOUNTER → 2020-01-02 09:57 | Outpatient (CLI) | payer BC, MEDICARE, SELFPAY ==
[2020-01-02 11:31] LABS: Chloride 101 mmol/L (98-107); Potassium 4.8 mmoL/L (3.5-5.1); Sodium 139 mmol/L (136-145)
[2020-01-02 11:34] LABS: Anion Gap 11.8 mEq/L (5-15); Blood Urea Nitrogen 33 mg/dl (9-20); Calcium 10.5 mg/dl (8.4-10.2); Carbon Dioxide 31 mmol/L (22.0-30.0); Estimated Glomerular Filt Rate 37 ml/min (>60); GFR (African American) 45 ML/MIN (>60); Glucose 96 mg/dl (74-100)
== END ==
PROVIDERS: Visit Provider Internal Medicine Cardiovascular Disease
DX: I25.10 Atherosclerotic heart disease of native coronary artery without angina pectoris (principal); I11.9 Hypertensive heart disease without heart failure; E78.5 Hyperlipidemia, unspecified; F17.200 Nicotine dependence, unspecified, uncomplicated
CPT/HCPCS: 36415; 80048

== ENCOUNTER → 2020-01-07 10:41 | Outpatient (CLI) | payer BC, MEDICARE, SELFPAY ==
[2020-01-07 11:30] LABS: Chloride 104 mmol/L (98-107); Sodium 140 mmol/L (136-145)
[2020-01-07 11:33] LABS: Blood Urea Nitrogen 18 mg/dl (9-20); Estimated Glomerular Filt Rate 53 ml/min (>60); GFR (African American) 64 ML/MIN (>60)
[2020-01-07 11:34] LABS: Calcium 9.5 mg/dl (8.4-10.2); Carbon Dioxide 30 mmol/L (22.0-30.0); Glucose 140 mg/dl (74-100)
== END ==
PROVIDERS: Visit Provider Nurse Practitioner Family
DX: I10 Essential (primary) hypertension (principal)
CPT/HCPCS: 36415; 80048

== ENCOUNTER → 2020-03-04 08:58 | Outpatient (CLI) | payer BC, MEDICARE, SELFPAY ==
[2020-03-04 10:37] LABS: Basophils % 0.5 % (0.1-2.0); Eosinophils # 0.2 K/mm3 (0.0-0.4); Eosinophils % 2.7 % (0.1-12.0); Hematocrit 52.1 % (42.0-52.0); Hemoglobin 16.9 g/dL (14.1-18.0); Lymphocytes # 1.6 K/mm3 (0.7-4.5); Lymphocytes % 22.4 % (10-50); Mean Corpuscular HGB Conc 32.5 g/dL (31.8-35.4); Mean Corpuscular Hemoglobin 29.8 pg (27.0-31.2); Mean Corpuscular Volume 91.7 fl (80-94); Mean Platelet Volume 8.9 fl (7.4-10.4); Monocytes # 0.5 K/mm3 (0.1-1.0); Monocytes % 6.1 % (1.7-9.3); Neutrophils % 68.4 % (37.0-80.0); Platelet Count 160 K/mm3 (142-424); Red Blood Count 5.68 M/mm3 (4.60-6.20); Red Cell Distribution Width 13.5 % (11.5-17.5); White Blood Count 7.4 K/mm3 (4.8-10.8)
[2020-03-04 10:54] LABS: Chloride 100 mmol/L (98-107); Potassium 5.2 mmoL/L (3.5-5.1); Sodium 138 mmol/L (136-145)
[2020-03-04 10:57] LABS: Alanine Aminotransferase 24 U/L (12-78); Albumin Level 4.6 g/dl (3.5-5.0); Albumin/Globulin Ratio 1.4 (1.1-1.8); Alkaline Phosphatase 59 U/L (38-126); Anion Gap 13.2 mEq/L (5-15); Aspartate Amino Transferase 29 U/L (17-59); Bilirubin,Total 0.6 mg/dl (0.2-1.3); Blood Urea Nitrogen 18 mg/dl (9-20); Calcium 10.2 mg/dl (8.4-10.2); Carbon Dioxide 30 mmol/L (22.0-30.0); Estimated Glomerular Filt Rate 58 ml/min (>60); GFR (African American) 70 ML/MIN (>60); Globulin 3.3 g/dL (1.3-3.2); Glucose 115 mg/dl (74-100); Total Protein,Serum 7.9 g/dl (6.3-8.2)
[2020-03-04 11:25] LABS: Coronavirus 19 IgG Antibody Negative (Negative); Coronavirus 19 IgM Antibody Negative (Negative)
[2020-03-04 15:04] LABS: Benzodiazepines Screen,Urine Negative ng/ml (<200)
[2020-03-04 15:05] LABS: Barbiturates Screen,Urine Negative ng/ml (<200)
[2020-03-04 15:06] LABS: Cannabinoid Screen,Urine Negative ng/ml (<50); Cocaine Screen,Urine Negative ng/ml (<300)
[2020-03-04 15:07] LABS: Methadone Screen,Urine Negative ng/ml (<300); Opiate Screen,Urine Negative ng/ml (<300)
[2020-03-04 15:08] LABS: Phencyclidine Screen,Urine Negative ng/ml (<25)
[2020-03-04 15:11] LABS: Amphetamine/Metha Screen,Urine Negative ng/ml (<1000)
== END ==
PROVIDERS: Visit Provider Anesthesiology
DX: Z01.818 Encounter for other preprocedural examination (principal); Z03.818 Encounter for observation for suspected exposure to other biological agents ruled out; M51.36 Other intervertebral disc degeneration, lumbar region
CPT/HCPCS: 36415; 80053; 80305; 85025; 86328

== ENCOUNTER 2020-03-06 10:09 | Day surgery (SDC) | payer BC, MEDICARE, SELFPAY ==
[2020-03-03 13:12] VITALS: BMI 37.3
[2020-03-06 10:36] VITALS: BP 152/98; PULSE 76; RESP 18; TEMP 36.4; O2SAT 95
--- NOTE | 2020-03-06 12:30 | HMH.ANESCL ---
[facility] Anesthesia Checklist - Structural Data Admitted From: Home Planned Operative Procedure/s: nerve stim trial Consent for Planned Operative Procedure(s) Verified: Yes - Additional verifications Anesthesia Reactions: No Hx Blood Transfusions: No Blood Transfusion Reaction: No - Airway Assessment C-Spine Mobility Assessed: Yes TMJ Mobility Assessed: Yes Dentition: Good Dentition - Neurological Assessment Level of Consciousness: Awake, Alert, Appropriate - Anesthesia Plan Anesthesia Risk discussed: Yes Anesthesia Plan: Verified ASA Class: III Anesthesia Type: MAC [facility] History I have reviewed the patient's past medical history: Yes Medical History: Reports:: Cardiomyopathy, Coronary Artery Disease, Hyperlipidemia, Hypertension, Migraine Denies:: Cancer, Diabetes Mellitus Type 1, Diabetes Mellitus Type 2, Internal Pacemaker, MRSA, Seizures *Have you ever received a pneumonia vaccine?: No *Have you received a flu vaccine this season?: No Other Medical History: Denies: Blood Transfusion Reaction Anesthesia experience/problems:: none Laterality Cases: Left: Total Knee Replacement, Bilateral: Arthroscopy Knee Other Surgeries: Yes: Cardiac Catheterization, Other. No: Pacemaker Amputation: No Fractures: No - *Social History Last grade of school completed: GED Smoking Status: Current every day smoker Tobacco Type: cigarettes # Packs/Day (cigarettes): 1 Alcohol Intake: never Alcohol Intake Frequency:: other Substance Use Type: denies use *Occupational Status:: disabled Housing: house Household Members: spouse *Travel in the last 8 weeks: None Family Hx:: Coronary Artery Disease
[2020-03-06 13:45] VITALS: BP 126/77; PULSE 77; RESP 18; O2SAT 92
--- NOTE | 2020-03-06 13:48 | HMH.OPNOTE ---
Date of procedure: 03/06/20 Pre-op Diagnosis:: Degenerative disc disease of lumbar spine with lumbar radiculopathy symptoms Post-op Diagnosis:: Same Procedure performed:: Spinal cord stimulator lead placement epidural x2 for spinal cord stimulator trial Surgeon:: Charanjit Anne MD CONTRACTING SUPPORT SPECIALIST:: Baeu Castillo Anesthesia: MAC Estimated blood loss (mL): 1 Clinical Note:: Patient is a pleasant 53-year-old white male who we are treating for low back pain with lumbar radicular symptoms. He has more back pain than leg pain. He has failed all previous conservative therapy including injections, physical therapy, oral medications and is not a surgical candidate. He has had a successful psychological evaluation. We will plan on spinal cord stimulator trial today to help him with his pain symptoms. Operative findings:: None Operative note:: Informed consent was obtained and the risk and benefits of the procedure was explained to the patient. Patient was taken to the procedure room. The back was prepped using ChloraPrep. The skin and subcutaneous tissues were anesthetized using lidocaine. I placed a 17-gauge epidural needle and advanced into the L2-L3 interspace. After confirmation of needle placement in the epidural space stimulating lead was inserted and advanced very easily to the T7-T8-T9 vertebral body. Lead placement was checked in AP and lateral views. A second needle was then inserted and advanced again into the L2-L3 interspace. Again after confirmation of needle placement in the epidural space stimulating lead was inserted and advanced again very easily to the T7-T8-T9 vertebral body. Again lead placement was checked in AP and lateral views. The stylets and needles were removed. The leads were secured in place. The patient was taken recovery in stable condition. The patient tolerated the procedure well with no complications. Patient was programmed by the [employer] sales solutions representative and got good stimulation in all areas of pain. The patient was placed on a paresthesia free FAST program. Patient was discharged home neurologically intact with good relief of pain symptoms. Plan and disposition: Follow-up with this patient in 3 days for reprogramming. We will follow-up in 1 week for lead pull. If the patient has any problems or questions he is to call us back in the pain clinic. Condition: stable Disposition: PACU Complications:: None
[2020-03-06 14:00] VITALS: BP 115/67; PULSE 74; RESP 18; O2SAT 94
[2020-03-06 14:15] VITALS: BP 114/66; PULSE 82; RESP 18; O2SAT 94
[2020-03-06 14:30] VITALS: BP 111/71; PULSE 79; RESP 18; O2SAT 95
[2020-03-06 14:45] VITALS: BP 108/68; PULSE 76; RESP 18; O2SAT 95
== END 2020-03-06 14:45 | disposition home or self-care (01) ==
LOC: OR 10:12
PROVIDERS: PCP Nurse Practitioner; Visit Provider Anesthesiology
PROC: (CPT 63685; principal; 2020-03-06 12:00)
DX: M51.16 Intervertebral disc disorders with radiculopathy, lumbar region (principal); I42.9 Cardiomyopathy, unspecified; I25.10 Atherosclerotic heart disease of native coronary artery without angina pectoris; E78.5 Hyperlipidemia, unspecified; I10 Essential (primary) hypertension; G43.909 Migraine, unspecified, not intractable, without status migrainosus; Z88.6 Allergy status to analgesic agent; Z79.899 Other long term (current) drug therapy; Z72.0 Tobacco use
CPT/HCPCS: 63685; 63650 ×2; 96374; C1778; J3370

== ENCOUNTER → 2020-03-12 08:59 | Outpatient (POV) | payer BC, MEDICARE, SELFPAY ==
[2020-03-12 09:08] VITALS: BP 130/88; PULSE 73; RESP 18; TEMP 36.6; O2SAT 98; BMI 37.3
--- NOTE | 2020-03-12 09:14 | HMH.PAINSOAP ---
[facility] Pain Management SOAP Note Subjective:: Patient is a 54-year-old white male who presents today for follow-up. Patient recently underwent a [employer] spinal cord stimulator trial, however, one of the patient's leads was dislodged. Patient did come into the clinic and had the leads removed. Patient says he got approximately 70% relief during the trial. Patient says he would like to proceed with the implant He did try and failed conservative therapies for greater than 6 months. He has tried injections, physical therapy, oral medications, and is not a surgical candidate. He did have a successful psychological evaluation. He does rate his pain a 7 out of 10 today. His pain is primarily in his low back with radicular symptoms into his legs. Review of Systems General: No recent weight changes, no fever, no sleep disturbances Respiratory: No cough, no shortness of air, no recurring pulmonary infections Cardiovascular/peripheral vascular: No chest pain, no palpitations, no edema, no shortness of breath Gastrointestinal: No new onset incontinence, normal bowel movements reported Genitourinary: No new onset incontinence Musculoskeletal: Low back pain, bilateral leg pain Psychiatric: Normal mood/affect Neurological: [Denies weakness in extremities], [denies balance issues] Objective:: Physical exam General: Alert and oriented x3, no acute distress, pleasant and cooperative, [on room air] Lungs: Respirations even and unlabored, symmetrical chest expansion Eyes: PERRL Musculoskeletal: Flexion and extension of lumbar spine somewhat guarded secondary to pain, deep tendon reflexes normal, strength in upper and lower extremities [5/5], [abnormal gait noted] Neurological: Speech clear, sectionizer equal, no gross sensory deficit Assessment:: Degenerative disc disease lumbar spine with lumbar radiculopathy symptoms Plan:: We will proceed with the [employer] spinal cord stimulator implant. The patient is not on any anticoagulation for reevaluation. He has been instructed to contact clinic if he has any concerns before his next appointment. The patient and I specifically discussed risk factors for COVID19. These risks include, but are not limited to age greater than 60, heart or lung disease, diabetes, immunosuppression, and travel. We also discussed NSAIDs may worsen COVID19 infection or symptoms. Patient should not use NSAIDs to treat COVID19 signs or symptoms. Patient was also informed that any type of corticosteroid of any form (oral or injection) will decrease the patient's immune system response and may increase the likelihood of COVID19 infection and symptoms[address] Dr. Anne has reviewed this note and agrees with this plan of care. This note was dictated using voice recognition software and make contain errors or omissions. [facility] History I have reviewed the patient's past medical history: Yes Medical History: Reports:: Cardiomyopathy, Coronary Artery Disease, Hyperlipidemia, Hypertension, Migraine Denies:: Cancer, Diabetes Mellitus Type 1, Diabetes Mellitus Type 2, Internal Pacemaker, MRSA, Seizures *Have you ever received a pneumonia vaccine?: Yes *Have you received a flu vaccine this season?: No Other Medical History: Denies: Blood Transfusion Reaction Laterality Cases: Bilateral: Arthroscopy Knee Other Surgeries: Yes: Cardiac Catheterization, Other. No: Pacemaker Amputation: No Fractures: No - *Social History Smoking Status: Current every day smoker Tobacco Type: cigarettes # Packs/Day (cigarettes): 1 Alcohol Intake: never Alcohol Intake Frequency:: other Substance Use Type: denies use *Occupational Status:: employed Housing: house Household Members: spouse *Travel in the last 8 weeks: None Family Hx:: Coronary Artery Disease
== END ==
PROVIDERS: Visit Provider Clinical Nurse Specialist Family Health
DX: M51.16 Intervertebral disc disorders with radiculopathy, lumbar region (principal)
CPT/HCPCS: 99212

== ENCOUNTER → 2020-04-07 11:49 | Outpatient (CLI) | payer BC, MEDICARE, SELFPAY ==
[2020-04-07 12:37] LABS: Basophils # 0.1 K/mm3 (0-0.2); Basophils % 0.9 % (0.1-2.0); Eosinophils # 0.2 K/mm3 (0.0-0.4); Eosinophils % 2.4 % (0.1-12.0); Hematocrit 52.7 % (42.0-52.0); Hemoglobin 16.9 g/dL (14.1-18.0); Lymphocytes # 1.8 K/mm3 (0.7-4.5); Lymphocytes % 23.8 % (10-50); Mean Corpuscular HGB Conc 32.1 g/dL (31.8-35.4); Mean Corpuscular Hemoglobin 29.4 pg (27.0-31.2); Mean Corpuscular Volume 91.5 fl (80-94); Mean Platelet Volume 8.5 fl (7.4-10.4); Monocytes # 0.5 K/mm3 (0.1-1.0); Monocytes % 6.3 % (1.7-9.3); Neutrophils # 5.1 K/mm3 (1.8-7.8); Neutrophils % 66.6 % (37.0-80.0); Platelet Count 147 K/mm3 (142-424); Red Blood Count 5.76 M/mm3 (4.60-6.20); Red Cell Distribution Width 13.7 % (11.5-17.5); White Blood Count 7.7 K/mm3 (4.8-10.8)
[2020-04-07 15:01] LABS: Anion Gap 13.4 mEq/L (5-15); Blood Urea Nitrogen 19 mg/dl (9-20); Calcium 10.2 mg/dl (8.4-10.2); Carbon Dioxide 29 mmol/L (22.0-30.0); Chloride 101 mmol/L (98-107); Estimated Glomerular Filt Rate 63 ml/min (>60); GFR (African American) 77 ML/MIN (>60); Glucose 72 mg/dl (74-100); Potassium 4.4 mmoL/L (3.5-5.1); Sodium 139 mmol/L (136-145)
[2020-04-07 15:09] LABS: Coronavirus 19 IgG Antibody Negative (Negative); Coronavirus 19 IgM Antibody Negative (Negative)
== END ==
PROVIDERS: Visit Provider Anesthesiology
DX: Z01.818 Encounter for other preprocedural examination (principal); Z11.52 Encounter for screening for COVID-19; M51.16 Intervertebral disc disorders with radiculopathy, lumbar region
CPT/HCPCS: 36415; 80048; 85025; 86328

== ENCOUNTER 2020-04-08 08:54 | Day surgery (SDC) | payer BC, MEDICARE, SELFPAY ==
[2020-04-06 11:49] VITALS: BMI 37.3
[2020-04-08] VITALS (7 sets, daily range): BP systolic 97–112; BP diastolic 61–74; PULSE 70–95; RESP 16–18; TEMP 36.4; O2SAT 93–98
--- NOTE | 2020-04-08 11:33 | HMH.PMCON ---
Assessment and Plan - Assessment and plan all Dx Assessment and Plan for all problems:: Impression-degenerative disc disease of the lumbar spine with radiculopathy Plan-placement of pain stimulator system today HPI - Data of Consult Patient: new to practice Consult date: 04/08/20 Requesting Physician: Charanjit Anne MD Primary Care Provider: Lesli Chapastephanie - Consult Narrative Reason for consult: Degenerative disc disease of the lumbar spine with radiculopathy History of present illness: Mr. Bassett is a 54 year old male with a long history of chronic back pain. Multiple attempts at improvement have been unsuccessful. Patient had a pain stimulator trial with significant improvement and comes in today for placement of that system CC: Charanjit Anne MD [facility] History I have reviewed the patient's past medical history: Yes Medical History: Reports:: Cardiomyopathy, Coronary Artery Disease, Hyperlipidemia, Hypertension, Migraine Denies:: Cancer, Diabetes Mellitus Type 1, Diabetes Mellitus Type 2, Internal Pacemaker, MRSA, Seizures *Have you ever received a pneumonia vaccine?: No *Have you received a flu vaccine this season?: No Other Medical History: Denies: Blood Transfusion Reaction Comment:: Illnesses hypertension, hyperlipidemia, coronary artery disease, reflux, cigarette abuse, chronic back pain, bipolar disorder Laterality Cases: Right: Total Knee Replacement, Bilateral: Arthroscopy Knee Other Surgeries: Yes: Cardiac Catheterization, Other. No: Pacemaker Amputation: No Fractures: No Comment: Cervical disc surgery, cardiac cath, bilateral knee arthroscopy - *Social History Last grade of school completed: GED Smoking Status: Current every day smoker Tobacco Type: cigarettes # Packs/Day (cigarettes): 1 Alcohol Intake: never Alcohol Intake Frequency:: other Substance Use Type: denies use *Occupational Status:: disabled Housing: house Household Members: spouse *Travel in the last 8 weeks: None Family Hx:: Coronary Artery Disease Meds Home Medications Medication Instructions Recorded Confirmed Type celecoxib 200 mg capsule 200 mg PO BID cap 09/27/18 04/06/20 History lamotrigine 150 mg tablet 200 mg PO BID tab 09/27/18 04/06/20 History Potassium Chloride [Micro-K 10mEq 10 meq PO DAILY 09/30/18 04/06/20 History cap] vilazodone 40 mg tablet 40 mg PO DAILY tab 12/06/19 04/06/20 History Gabapentin [Neurontin 600mg 600 mg PO BID 03/03/20 04/06/20 History tablet] furosemide 40 mg tablet 40 mg PO DAILY #90 tab 03/26/20 04/06/20 Rx losartan 100 mg tablet 100 mg PO DAILY #90 tab 03/26/20 04/06/20 Rx metoprolol succinate 50 mg 50 mg PO DAILY #90 tab 03/26/20 04/06/20 Rx tablet,extended release 24 hr quetiapine 200 mg tablet 200 mg PO QDAY tab 03/26/20 04/06/20 History rosuvastatin 20 mg tablet 20 mg PO DAILY #90 tab 03/26/20 04/06/20 Rx spironolactone 50 mg tablet 50 mg PO DAILY #90 tab 03/26/20 04/06/20 Rx Omeprazole 40 mg PO DAILY 04/06/20 04/06/20 History Sulfamethoxazole/Trimethoprim 1 each PO BID #14 tab 04/08/20 Rx [Bactrim DS tablet] Allergies Allergy/AdvReac Type Severity Reaction Status Date / Time hydrocodone [From VICODIN] Allergy Unknown Verified 04/06/20 11:54 Objective Vital signs: Temp Pulse Resp BP Pulse Ox 97.5 F L 73 18 105/69 L 98 04/08/20 09:30 04/08/20 09:30 04/08/20 09:30 04/08/20 09:30 04/08/20 09:30 no acute distress - *Routine Respiratory Exam Present: CTA bilaterally - *Routine Cardiovascular Exam Present: RRR - *Routine Abdominal Exam Present: soft, normoactive bowel sounds. Absent: tenderness
--- NOTE | 2020-04-08 11:51 | HMH.OPNOTE ---
Date of procedure: 04/08/20 Pre-op Diagnosis:: Degenerative disc disease of the lumbar spine with radiculopathy Post-op Diagnosis:: Same Procedure performed:: Placement of pain stimulator generator Surgeon:: Jagdish Mcmillan MD HOUSEKEEPING CLEANER:: Beau Castillo, Maged More, Shai Awan, Saran Tam, Other Anesthesia: MAC Estimated blood loss (mL): 5 Operative findings:: Not applicable Operative note:: Patient was placed on the operating table in the prone position and his back and flank regions were prepped and draped in sterile fashion. Paraspinal incision was made by Dr. Crespo there which 2 epidural leads were placed in the epidural space to where he desired it to be. The leads were then fixed the paraspinal fascia with fixation devices and 2-0 Prolene sutures. A right flank incision was then made for placement of the generator. The leads were passed from the from the paraspinal incision of the pocket incision utilize a tunneling device. Both pockets irrigated with antibiotic solution. Leads connected the generator which was placed in the pocket. System noted to be functioning properly. Subcutaneous tissues closed with 2-0 Vicryl and skin closed arm stitches of 4-0 nylon. Wound VAC dressings and a binder applied to the wound. The patient tolerated the procedure well and was taken to the recovery room in stable condition. Upon recovery the patient will be discharged home and follow-up in 1 week for removal of the wound VAC dressings in 2 weeks remove the sutures. Antibiotic x1 week per protocol. The patient tolerated the procedure well Condition: stable Disposition: PACU Complications:: None
--- NOTE | 2020-04-08 12:06 | P.PN_ITS ---
[facility] Anesthesia Checklist - Patient Identification Patient Identification: Arm Band, Verbal (Name & ) - Structural Data Admitted From: Home Planned Operative Procedure/s: mac Verified Documents: Surgical Consent - NPO Status Verified Time NPO: 00:00 - Additional verifications Anesthesia Reactions: No Hx Blood Transfusions: No Blood Transfusion Reaction: No - Neurological Assessment Level of Consciousness: Awake - Anesthesia Plan Anesthesia Risk discussed: Yes Anesthesia Plan: Verified ASA Class: II Anesthesia Type: Local & MAC [facility] History Medical History: Reports:: Cardiomyopathy, Coronary Artery Disease, Hyperlipidemia, Hypertension, Migraine Denies:: Cancer, Diabetes Mellitus Type 1, Diabetes Mellitus Type 2, Internal Pacemaker, MRSA, Seizures *Have you ever received a pneumonia vaccine?: No *Have you received a flu vaccine this season?: No Other Medical History: Denies: Blood Transfusion Reaction Anesthesia experience/problems:: no problems Laterality Cases: Right: Total Knee Replacement, Bilateral: Arthroscopy Knee Other Surgeries: Yes: Cardiac Catheterization, Other. No: Pacemaker Amputation: No Fractures: No - *Social History Last grade of school completed: GED Smoking Status: Current every day smoker Tobacco Type: cigarettes # Packs/Day (cigarettes): 1 Alcohol Intake: never Alcohol Intake Frequency:: other Substance Use Type: denies use *Occupational Status:: disabled Housing: house Household Members: spouse *Travel in the last 8 weeks: None Family Hx:: Coronary Artery Disease
--- NOTE | 2020-04-08 12:45 | P.OP_ITS ---
Date of procedure: 04/08/20 Pre-op Diagnosis:: Degenerative disc disease of lumbar spine with lumbar radiculopathy symptoms Post-op Diagnosis:: Same Procedure performed:: Spinal cord stimulator lead placement epidural x2 for permanent spinal cord stimulator placement Surgeon:: Charanjit Anne MD INFORMATION RECEPTIONIST:: Other Anesthesia: GETA Estimated blood loss (mL): 5 Clinical Note:: Patient is a pleasant 54-year-old white male who we have been treating for low back pain with lumbar radiculopathy symptoms. He has had a successful spinal cord stimulator trial and successful psychological evaluation. Most of his pain is in the low back. He has tried and failed all previous conservative treatments including injections, physical therapy, oral medications and is not a surgical candidate. He also has some radicular symptoms but more low back pain than leg pain. Since he did very well with his spinal cord stimulator trial. He presents for permanent placement of a spinal cord stimulator today. Operative findings:: None Operative note:: Informed consent was obtained risk and benefits of the procedure were explained to the patient. Patient was taken to the procedure room. Patient was prepped and draped in sterile fashion. C-arm fluoroscopy was used to view the lumbar spine. The skin and subcutaneous tissues adjacent to the L3-L4 and L4-L5 interspace were anesthetized using lidocaine. I made an incision and dissected down to the lumbar paraspinous fascia. A 17-gauge epidural needle was inserted and advanced into the L2-L3 interspace. After confirmation of needle placement in the epidural space stimulating lead was inserted and advanced very easily to the T7-T8 vertebral body. Lead placement was checked in AP and lateral views. A second needle was then inserted and advanced again into the L2-L3 interspace. Again after confirmation of needle placement in the epidural space a stimulating lead was inserted and advanced again very easily to the T7-T8 vertebral body. Lead placement was again checked in AP and lateral views. These were both 8 contact compact leads. The stylets and needles were removed. The leads were secured to the fascia with anchoring devices and 2-[address] Gary felipe created the generator pocket. I tunneled the leads from the back to the generator pocket and attached the leads to the generator. Impedances were checked and found to be okay. Both incisions were irrigated with bacitracin solution. Both incisions were then closed with 2-0 Vicryl followed by 4-0 nylon. A wound VAC was placed over both incisions. The patient was taken to recovery in stable condition. Patient tolerated the procedure well with no complications. Patient was programmed by the [employer] advertising sales representative with good stimulation in all areas of pain. The patient was placed on a paresthesia free fast program. Patient was discharged home neurologically intact with good relief of pain symptoms. Plan and disposition: Follow-up with this patient in 1 week for wound check and reprogramming. We will follow-up in 2 weeks for suture removal. If patient has any problems or questions he is to call us back in the pain clinic. Condition: stable Disposition: PACU Complications:: None
== END 2020-04-08 14:25 | disposition home or self-care (01) ==
LOC: OR 08:55
PROVIDERS: PCP Nurse Practitioner; Visit Provider Anesthesiology
PROC: (CPT 63663; principal; 2020-04-08 10:30)
DX: M51.16 Intervertebral disc disorders with radiculopathy, lumbar region (principal); I42.9 Cardiomyopathy, unspecified; I25.10 Atherosclerotic heart disease of native coronary artery without angina pectoris; I10 Essential (primary) hypertension; E78.5 Hyperlipidemia, unspecified; G43.909 Migraine, unspecified, not intractable, without status migrainosus; K21.9 Gastro-esophageal reflux disease without esophagitis; F17.210 Nicotine dependence, cigarettes, uncomplicated; F31.9 Bipolar disorder, unspecified; Z96.653 Presence of artificial knee joint, bilateral; Z79.899 Other long term (current) drug therapy; Z88.6 Allergy status to analgesic agent
CPT/HCPCS: 63663 ×2; 63688; 96374; C1778; C1820; J3370

== ENCOUNTER → 2020-04-16 09:32 | Outpatient (POV) | payer BC, MEDICARE, SELFPAY ==
--- NOTE | 2020-04-16 09:47 | P.CONS_ITS ---
[facility] Pain Management SOAP Note Subjective:: Patient is a pleasant 54-year-old white male who presents today for follow-up after neurostimulator implant. Patient is doing extremely well he rates his pain a 6 out of 10. Patient's [place] was removed no sign symptoms of infection. Patient's stitches are intact. Overall patient doing well he states he does not need any additional programming at this time. ROS General: no recent weight change, no fever, no sleep disturbances Respiratory: no cough, no shortness of air, no recurring pulmonary infections Cardiovascular/Peripheral Vascular: No chest pain, No palpitations, no edema, no shortness of breath. Gastrointestinal: no new onset incontinence, normal bowel movements reported Genitourinary: no new onset incontinence Musculoskeletal: Back pain, leg pain Psychiatric: normal mood/ affect Neurological: [denies new onset weakness in extremities], [denies new onset balance issues] Objective:: Physical Exam General: Alert and oriented x3, no acute distress, pleasant and cooperative, [on room air] Lungs: Resps E/U, Symmetrical chest expansion, Eyes: PERRL Musculoskeletal: Flexion and extension of lumbar spine somewhat guarded secondary to pain, deep tendon reflexes normal, strength in upper and lower extremities [5/5], [abnormal gait noted] Neurological: speech clear, beating machine operator equal, no gross sensory deficits Assessment:: Degenerative disc disease lumbar spine lumbar radiculopathy symptoms Plan:: We will see the patient back in 2 weeks reassess his symptoms at that time and remove the stitches he has been instructed to call the office if he has any issues prior to this. He is also been instructed to continue to wear his abdominal binder. Dr. Anne has reviewed this note and agrees with this plan of care. This note was dictated using voice recognition software and may contain errors or omissions [facility] History I have reviewed the patient's past medical history: Yes Medical History: Reports:: Cardiomyopathy, Coronary Artery Disease, Hyperlipidemia, Hypertension, Migraine Denies:: Cancer, Diabetes Mellitus Type 1, Diabetes Mellitus Type 2, Internal Pacemaker, MRSA, Seizures *Have you ever received a pneumonia vaccine?: No *Have you received a flu vaccine this season?: No Other Medical History: Denies: Blood Transfusion Reaction Laterality Cases: Bilateral: Arthroscopy Knee Other Surgeries: Yes: Cardiac Catheterization, Other. No: Pacemaker Amputation: No Fractures: No - *Social History Smoking Status: Current every day smoker Tobacco Type: cigarettes # Packs/Day (cigarettes): 1 Alcohol Intake: never Alcohol Intake Frequency:: other Substance Use Type: denies use *Occupational Status:: disabled Housing: house Household Members: spouse *Travel in the last 8 weeks: None Family Hx:: Coronary Artery Disease
[2020-04-16 10:23] VITALS: BP 125/74; PULSE 81; RESP 18; TEMP 36.9; O2SAT 99; BMI 37.3
== END ==
PROVIDERS: PCP Nurse Practitioner; Visit Provider Clinical Nurse Specialist Family Health
DX: M51.16 Intervertebral disc disorders with radiculopathy, lumbar region (principal); Z09 Encounter for follow-up examination after completed treatment for conditions other than malignant neoplasm
CPT/HCPCS: 99212; G0463

== ENCOUNTER → 2020-05-04 10:17 | Outpatient (POV) | payer BC, MEDICARE, SELFPAY ==
--- NOTE | 2020-05-04 10:48 | P.CONS_ITS ---
[facility] Pain Management SOAP Note Subjective:: Patient is a 54-year-old white male who presents today for follow-up. Patient has had a [employer] neurostimulator implanted. Patient overall doing well rating his pain today 3 out of 10. His stitches have been removed and there are no sign symptoms of infection. ROS General: no recent weight change, no fever, no sleep disturbances Respiratory: no cough, no shortness of air, no recurring pulmonary infections Cardiovascular/Peripheral Vascular: No chest pain, No palpitations, no edema, no shortness of breath. Gastrointestinal: no new onset incontinence, normal bowel movements reported Genitourinary: no new onset incontinence Musculoskeletal: Back pain, leg pain Psychiatric: normal mood/ affect Neurological: [denies new onset weakness in extremities], [denies new onset balance issues] Objective:: Physical Exam General: Alert and oriented x3, no acute distress, pleasant and cooperative, [on room air] Lungs: Resps E/U, Symmetrical chest expansion, Eyes: PERRL Musculoskeletal: Flexion and extension of lumbar spine somewhat guarded second tania to pain, deep tendon reflexes normal, strength in upper and lower extremities [5/5], slightly antalgic gait noted Neurological: speech clear, qa manager equal, no gross sensory deficits Assessment:: degenerative disc disease lumbar spine lumbar radiculopathy low back pain Plan:: See the patient back in 3 months reassess his symptoms at that time he has been instructed to call the office if he has any issues prior to his next appointment. Dr. Anne has reviewed this note and agrees with this plan of care. This note was dictated using voice recognition software and may contain errors or omissions [facility] History I have reviewed the patient's past medical history: Yes Medical History: Reports:: Cardiomyopathy, Coronary Artery Disease, Hyperlipidemia, Hypertension, Migraine Denies:: Cancer, Diabetes Mellitus Type 1, Diabetes Mellitus Type 2, Internal Pacemaker, MRSA, Seizures *Have you ever received a pneumonia vaccine?: No *Have you received a flu vaccine this season?: No Other Medical History: Denies: Blood Transfusion Reaction Laterality Cases: Bilateral: Arthroscopy Knee Other Surgeries: Yes: Cardiac Catheterization, Other. No: Pacemaker Amputation: No Fractures: No - *Social History Smoking Status: Current every day smoker Tobacco Type: cigarettes # Packs/Day (cigarettes): 1 Alcohol Intake: never Alcohol Intake Frequency:: other Substance Use Type: denies use *Occupational Status:: other Housing: house Household Members: spouse *Travel in the last 8 weeks: None Family Hx:: Coronary Artery Disease
[2020-05-04 10:59] VITALS: BP 140/71; PULSE 66; RESP 18; TEMP 36.8; O2SAT 98; BMI 37.3
== END ==
PROVIDERS: PCP Nurse Practitioner; Visit Provider Clinical Nurse Specialist Family Health
DX: M51.16 Intervertebral disc disorders with radiculopathy, lumbar region (principal)
CPT/HCPCS: 99212; G0463

== ENCOUNTER → 2020-06-22 18:02 | Outpatient (CLI) | payer MEDICARE, SELFPAY ==
[2020-06-22 19:00] LABS: Erythrocyte Sedimentation Rate 13 mm/hr (0-20)
[2020-06-22 19:14] LABS: Alanine Aminotransferase 33 U/L (12-78); Albumin Level 4.3 g/dl (3.5-5.0); Albumin/Globulin Ratio 1.5 (1.1-1.8); Alkaline Phosphatase 58 U/L (38-126); Anion Gap 12.4 mEq/L (5-15); Aspartate Amino Transferase 32 U/L (17-59); Bilirubin,Total 0.3 mg/dl (0.2-1.3); Blood Urea Nitrogen 15 mg/dl (9-20); Calcium 9.6 mg/dl (8.4-10.2); Carbon Dioxide 28 mmol/L (22.0-30.0); Chloride 104 mmol/L (98-107); Estimated Glomerular Filt Rate 63 ml/min (>60); GFR (African American) 77 ML/MIN (>60); Globulin 2.9 g/dL (1.3-3.2); Glucose 129 mg/dl (74-100); Potassium 4.4 mmoL/L (3.5-5.1); Sodium 140 mmol/L (136-145); Total Protein,Serum 7.2 g/dl (6.3-8.2)
[2020-06-22 19:47] LABS: Prostate Specific Ag, Diagnost 0.526 ng/ml (0.0-4.0); Thyroid Stimulating Hormone 2.53 uIU/mL (0.465-4.68)
[2020-06-22 20:21] LABS: Vitamin B12 453 pg/mL (239-931)
[2020-06-22 20:42] LABS: Folate 6.36 ng/mL
[2020-06-26 12:23] LABS: Antinuclear Antibodies, IFA Negative (.)
== END ==
PROVIDERS: Visit Provider Family Medicine
DX: I25.10 Atherosclerotic heart disease of native coronary artery without angina pectoris (principal); I10 Essential (primary) hypertension; J44.9 Chronic obstructive pulmonary disease, unspecified; E53.8 Deficiency of other specified B group vitamins; M19.91 Primary osteoarthritis, unspecified site; Z79.899 Other long term (current) drug therapy; Z12.5 Encounter for screening for malignant neoplasm of prostate; F17.210 Nicotine dependence, cigarettes, uncomplicated
CPT/HCPCS: 80053; 82607; 82746; 84153; 84443; 85651; 86038

== ENCOUNTER → 2020-07-01 09:52 | Outpatient (CLI) | payer MEDICARE, SELFPAY ==
--- NOTE | 2020-07-01 09:56 | CA_ITS ---
APPROVED REPORT EXAM: Comprehensive 2D, Doppler, and color-flow Echocardiogram Hospital Social Worker: Claire Cervantes RVT Ht: 5 ft 10 in Wt: 273lbs BSA: 2.38 BP: 127/79 mmHg Indications: SOA,TACHYCARDIA,CAD,HTN,HLD,MEDINA,GERD,HX CM 2D Dimensions LVOT 2.27 cm (M/F) 1.5-2.5 LA Volume 34.10 mL LA Volume Index 14.32 mL/m2 (M/F) 16-34 M-Mode Dimensions RVDd 3.10 cm (0.9-2.6) LA Diam 4.43 cm (1.9-4.0) LVDd 4.46 cm (3.5-5.7) Ao Diam 3.54 cm (2.0-3.7) LVDs 3.02 cm (3.5-5.7) IVSd 1.83 cm (0.6-1.1) PWd 0.81 cm (0.6-1.1) EF (Teich) 60.70% FS 32.30% EDV (Teich) 90.50 mL TAPSE 2.66 (<1.7) ESV (Teich) 35.60 mL LV Diastology E Decel Time 253.00 (160-240 msec) E/A Ratio 0.8 MED E' 5.40 (< 7 cm/sec) E'/MED E' Ratio 14.46 (>14) LAT E' 6.80 (<10 cm/sec) E/LAT E' Ratio 11.49 (>14) Mitral Valve MV E Max Jan. 78.00 (40-130 cm/s) MV A Velocity 100.00 (40-130 cm/s) E/A Ratio 0.78 MV Decel. Time 253.00 (160-240 ms) MV PHT 74.00 ms Pulmonary Valve PV Peak Velocity 81.00 (50-150 cm/s) Left Ventricle Left atrium is mildly enlarged, left ventricle is normal size, mild concentric left ventricular hypertrophy, visually estimated ejection fraction 50% with no regional wall motion abnormality, grade 1 diastolic dysfunction seen with tissue Doppler evidence of raise left atrial pressure. Right Ventricle Right atrium and right ventricle mildly enlarged with normal contractility. Aortic Valve Aortic valve is minimally thickened and fibrosed, there is no aortic stenosis or aortic insufficiency. Mitral Valve Mitral valve leaflets are minimally thickened, there is mild mitral calcification, there is mild mitral regurgitation. Tricuspid Valve Tricuspid grossly normal, there is mild tricuspid regurgitation, tricuspid regurgitation jet velocity is inadequate for calculation of the right ventricular systolic pressure. Pulmonic Valve Pulmonic valve is poorly visualized. Great Vessels Aortic root is normal size. Inferior vena cava is not well visualized. Pericardium No significant pericardial effusion noted. Conclusion 1. Mild biatrial enlargement, normal left ventricular size, mild concentric left ventricular hypertrophy, visually estimated ejection fraction 50% with no regional wall motion abnormality, grade 1 diastolic dysfunction seen with tissue Doppler evidence of raise left atrial pressure. 2. Mildly enlarged right ventricle with normal contractility. 3. Mild mitral and tricuspid regurgitation. 4. No significant pericardial effusion noted. Electronically signed by : Ron Worley, 07/02/2020 10:36:49
== END ==
PROVIDERS: PCP Family Medicine; Visit Provider Physician Assistant
DX: R06.00 Dyspnea, unspecified (principal)
CPT/HCPCS: 93306

== ENCOUNTER → 2020-07-30 09:40 | Outpatient (POV) | payer MEDICARE, SELFPAY ==
[2020-07-30 10:14] VITALS: BP 131/71; PULSE 65; RESP 18; O2SAT 98; BMI 38.7
--- NOTE | 2020-08-03 08:39 | P.CONS_ITS ---
[facility] Pain Management SOAP Note Subjective:: Patient is a pleasant 54-year-old white male who presents today for follow-up. He had a 591wed neurostimulator implanted. Patient has not had it reprogrammed in quite some time he rates his pain a 6 out of 10 stating its higher than typical. We discussed getting a reprogramming scheduled. Overall doing well. He is also on gabapentin 600 mg 1 p.o. twice daily he would like to increase this to 3 times a day. He denies side effects to the medication. [facility] #[id number] reviewed and appropriate. ROS General: no recent weight change, no fever, no sleep disturbances Respiratory: no cough, no shortness of air, no recurring pulmonary infections Cardiovascular/Peripheral Vascular: No chest pain, No palpitations, no edema, no shortness of breath. Gastrointestinal: no new onset incontinence, normal bowel movements reported Genitourinary: no new onset incontinence Musculoskeletal: Back pain, leg pain Psychiatric: normal mood/ affect Neurological: [denies new onset weakness in extremities], [denies new onset balance issues] Objective:: Physical Exam General: Alert and oriented x3, no acute distress, pleasant and cooperative, [on room air] Lungs: Resps E/U, Symmetrical chest expansion, Eyes: PERRL Musculoskeletal: Flexion and extension of lumbar spine somewhat guarded secondary to pain, deep tendon reflexes normal, strength in upper and lower extremities [5/5], antalgic gait noted Neurological: speech clear, frame tender equal, no gross sensory deficits Assessment:: Degenerative disc disease lumbar spine lumbar radiculopathy and back pain Plan:: We will ensure that he gets in contact with the [employer] medical billing representative. We will continue his gabapentin 600 mg 1 p.o. 3 times daily. We will see him back in 3 months reassess his symptoms at that time he has been instructed to call the office if he has any issues prior to his next appointment. Dr. Anne has reviewed this note and agrees with this plan of care. This note was dictated using voice recognition software and may contain errors or omissions [facility] History I have reviewed the patient's past medical history: Yes Medical History: Reports:: Cardiomyopathy, Coronary Artery Disease, Hyperlipidemia, Hypertension, Migraine Denies:: Cancer, Diabetes Mellitus Type 1, Diabetes Mellitus Type 2, Internal Pacemaker, MRSA, Seizures *Have you ever received a pneumonia vaccine?: Yes *Have you received a flu vaccine this season?: Yes Other Medical History: Denies: Blood Transfusion Reaction Laterality Cases: Bilateral: Arthroscopy Knee Other Surgeries: Yes: Cardiac Catheterization, Other. No: Pacemaker Amputation: No Fractures: No - *Social History Smoking Status: Current every day smoker Tobacco Type: cigarettes # Packs/Day (cigarettes): 1 Alcohol Intake: never Alcohol Intake Frequency:: other Substance Use Type: denies use *Occupational Status:: other Housing: house Household Members: spouse *Travel in the last 8 weeks: None Family Hx:: Coronary Artery Disease
== END ==
PROVIDERS: Visit Provider Clinical Nurse Specialist Family Health
DX: M51.16 Intervertebral disc disorders with radiculopathy, lumbar region (principal)
CPT/HCPCS: 99212; G0463

== ENCOUNTER → 2020-09-08 13:46 | Outpatient (CLI) | payer MEDICARE, SELFPAY ==
--- NOTE | 2020-09-08 13:46 | CT_ITS ---
PROCEDURE: CT LUNG SCREENING CLINICAL INDICATION: lung cancer screening Current smoker 40 pack year smoking history COMPARISON: CT CT ANGIO CHEST from 05/10/2019 TECHNIQUE: The exam was performed on a GE Light Speed [address] scanner using 2.90 mGy CTDI. A low dose helical CT CHEST was performed on a multi-detector scanner. All CT scans at the facility use one or more dose reduction, viz: automated exposure control, ma/kV adjustment per patient size (including targeted exams where dose is matched to indication, i.e. head), or iterative reconstruction technique. The LDCT was performed in a facility that meets the criteria for the screening program. Data regarding this exam was submitted to ACR which is an approved registry. The order for this exam indicates that it came as a result of a lung cancer screening counseling shard decision-making visit that included all the elements required of such a visit including smoking cessation. The radiologist interpreting this exam meets the [facility] criteria for the LDCT lung cancer screening program. The exam is reported using the Lung-RADS classification scale and reported to the ACR registry. NOTE: This study was performed for the specific purposes of lung cancer screening and is not an alternative to diagnostic chest CT. RADIATION DOSE: CTDI vol(CT dose Index-volume) = 2.90mG DLP (Dose Length Product) = 102.90 mGcm FINDINGS: COPD changes. Mild prominence of the interstitium in the lung apices with a somewhat hazy appearance of the upper lobes which may be related to smoking related lung disease.. Minimal paraseptal emphysematous changes. Patchy ground-glass attenuation in the right upper lobe somewhat less prominent compared to the previous exam. No suspicious nodules evident. OTHER FINDINGS: Minimal mitral valve annular calcification. Fatty liver. Epidural stimulator device present in the midthoracic spine region IMPRESSION: Lung-RADS Category 2 Benign Appearance or Behavior Follow-up: Continue annual screening with LDCT in 12 months Dictated by: Tim Lyn MD 09/18/2020 09:58 Tim Lyn MD in [place] 09/18/2020 09:58
== END ==
PROVIDERS: PCP Family Medicine; Visit Provider Internal Medicine Pulmonary Disease
DX: Z87.891 Personal history of nicotine dependence (principal); Z12.2 Encounter for screening for malignant neoplasm of respiratory organs
CPT/HCPCS: 71271

== ENCOUNTER → 2020-09-10 14:38 | Outpatient (CLI) | payer MEDICARE, SELFPAY | PROVIDERS: PCP Family Medicine; Visit Provider Internal Medicine Pulmonary Disease | DX: R06.00 Dyspnea, unspecified (principal) | CPT/HCPCS: 94060; 94618; 94726; 94729 ==

== ENCOUNTER → 2020-11-05 08:44 | Outpatient (POV) | payer MEDICARE, SELFPAY ==
[2020-11-05 08:49] VITALS: BP 119/80; PULSE 105; RESP 18; O2SAT 93; BMI 51.6
--- NOTE | 2020-11-05 09:02 | HMH.PAINSOAP ---
[facility] Pain Management SOAP Note Subjective:: Patient is a 54-year-old white male who presents today for follow-up. The patient is being treated for degenerative disc disease lumbar spine with lumbar radiculopathy symptoms and chronic low back pain. Patient does have a [employer] spinal cord stimulator in place that he says does give him quite a bit of relief, however, he does continue to have pain when he is standing for prolonged periods with cooking cleaning or washing dishes. He says that when his pain is at its worst. He says prolonged walking also worsens his pain. He has tried injective therapy which did not give him any significant relief. He is also tried anti-inflammatories. He does take Celebrex which gives him about 30 to 40% relief as well as gabapentin 600 mg 1 tablet p.o. twice daily. He would like a refill on his medications today. He does deny any side effects to the medicines. His [facility] #[id number] has been reviewed and is appropriate. Drug screens have been appropriate. Morphine equivalent is 0. We did discuss possible intrathecal therapy for his continued pain in his low back. He would like to defer at this time. He would like to continue with his oral medicines at this time. He does rate his pain a 6 out of 10, 5 out of 10 is his baseline. Review of Systems General: No recent weight changes, no fever, no sleep disturbances Respiratory: No cough, no shortness of air, no recurring pulmonary infections Cardiovascular/peripheral vascular: No chest pain, no palpitations, no edema, no shortness of breath Gastrointestinal: No new onset incontinence, normal bowel movements reported Genitourinary: No new onset incontinence Musculoskeletal: Low back pain Psychiatric: [Normal mood/affect] Neurological: [Denies weakness in extremities], [denies balance issues] Objective:: Physical exam General: Alert and oriented x3, no acute distress, pleasant and cooperative, [on room air] Lungs: Respirations even and unlabored, symmetrical chest expansion Eyes: PERRL Musculoskeletal: Flexion and extension of lumbar [spine] somewhat guarded secondary to pain, strength in upper and lower extremities [5/5], [antalgic gait noted] Neurological: Speech clear, [implementation advisor equal], no gross sensory deficit Assessment:: Degenerative disc disease lumbar spine with lumbar radiculopathy symptoms Plan:: We will refill the patient's gabapentin 600 mg 1 tablet p.o. twice daily and Celebrex 200 mg 1 tablet p.o. daily. We will give him 3 months worth of medication and see him back in the clinic in 3 months. The patient has been instructed to contact the clinic if he has any concerns for his next appointment. If the patient is continuing to do well with his medications at the next visit we will place him at 6-month visits. Risks and benefits of the medication have been explained in detail to the patient. The patient has been advised to consult with his/her primary care provider and pharmacist regarding drug-drug interaction of medications currently prescribed. Patient has been instructed to contact the clinic with any concerns before the next appointment. Dr. Anne has reviewed this note and agrees with this plan of care. This note was dictated using voice recognition software and make contain errors or omissions. [facility] History I have reviewed the patient's past medical history: Yes Medical History: Reports:: Cardiomyopathy, Coronary Artery Disease, Hyperlipidemia, Hypertension, Migraine Denies:: Cancer, Diabetes Mellitus Type 1, Diabetes Mellitus Type 2, Internal Pacemaker, MRSA, Seizures *Have you ever received a pneumonia vaccine?: No *Have you received a flu vaccine this season?: No Other Medical History: Denies: Blood Transfusion Reaction Laterality Cases: Bilateral: Arthroscopy Knee Other Surgeries: Yes: Cardiac Catheterization, Other. No: Pacemaker Amputation: No Fractures: No - *Social History Smoking Status: Current mis
== END ==
PROVIDERS: Visit Provider Clinical Nurse Specialist Family Health
DX: M51.16 Intervertebral disc disorders with radiculopathy, lumbar region (principal)
CPT/HCPCS: 99212; G0463

== ENCOUNTER → 2021-01-12 10:36 | Outpatient (CLI) | payer MEDICARE, SELFPAY ==
--- NOTE | 2021-01-12 | CA_ITS ---
APPROVED REPORT Right Lower Extremity Venous Study for DVT. Dry Cleaning Attendant: Grecia Bonds RT(R) Indications Lower Extremity Edema: Right Stasis Disease Current Smoker Lower Extremity Swelling: Right HTN, right leg edema and redness x 1 week. Patient denies trauma Risk Factors Current Smoker Vein Imaging CFV (R): compressive, spontaneous, phasic, augmentation FEM (R): compressive, spontaneous, phasic, augmentation POP (R): compressive, spontaneous, phasic, augmentation PTV (R): Compressible GSV (R): compressive, spontaneous, phasic, augmentation SSV (R): Compressible Peroneals (R):Compressible GAS (R): Compressible Findings No evidence of DVT or superficial thrombophlebitis in the veins scanned of the right lower extremity. Conclusion No evidence of DVT or superficial thrombophlebitis in the veins scanned of the right lower extremity. Electronically signed by : Jessica Torres MD 01/12/2021 16:18:23
== END ==
PROVIDERS: PCP Family Medicine; Visit Provider Family Medicine
DX: I87.321 Chronic venous hypertension (idiopathic) with inflammation of right lower extremity (principal)
CPT/HCPCS: 93971

== ENCOUNTER → 2021-01-30 09:25 | Outpatient (CLI) | payer MEDICARE, SELFPAY | PROVIDERS: PCP Family Medicine; Visit Provider Nurse Practitioner Family | DX: Z20.822 Contact with and (suspected) exposure to COVID-19 (principal) | CPT/HCPCS: C9803; U0003; U0005 ==

== ENCOUNTER → 2021-02-04 08:57 | Outpatient (POV) | payer MEDICARE, SELFPAY ==
[2021-02-04 09:16] VITALS: BP 137/89; PULSE 103; RESP 18; O2SAT 95; BMI 37.3
--- NOTE | 2021-02-04 11:46 | HMH.PAINSOAP ---
[facility] Pain Management SOAP Note Subjective:: Patient is a 55-year-old white male who presents today for medication refill. We do treat the patient for chronic low back pain with radiation into bilateral lower extremities. He does have a [employer] spinal cord stimulator in place as well. He says this does help significantly with his low back pain and lower extremity pain. The gabapentin is taken for numbness and tingling in his lower extremities. We have ordered him Celebrex, but he has been advised by his journalism teacher to avoid any anti-inflammatories. As result, the patient has been advised today to stop taking Celebrex. He does rate his pain a 6 out of 10 which is baseline for him. He has been taking gabapentin 3 times daily but says that the pain does return midday as the medication wears off. We discussed increasing gabapentin to 4 times daily. He would like to try this. [facility] #[id number] has been reviewed and is appropriate. Drug screen is appropriate. Morphine equivalent is 0. Review of Systems General: No recent weight changes, no fever, no sleep disturbances Respiratory: No cough, no shortness of air, no recurring pulmonary infections Cardiovascular/peripheral vascular: No chest pain, no palpitations, no edema, no shortness of breath Gastrointestinal: No new onset incontinence, normal bowel movements reported Genitourinary: No new onset incontinence Musculoskeletal: Low back pain with radiation into bilateral lower extremities Psychiatric: [Normal mood/affect] Neurological: [Denies weakness in extremities], [denies balance issues] Objective:: Physical exam General: Alert and oriented x3, no acute distress, pleasant and cooperative Lungs: Respirations even and unlabored, symmetrical chest expansion Eyes: PERRL Musculoskeletal: Flexion and extension of lumbar [spine] somewhat guarded secondary to pain, [antalgic gait noted] Neurological: Speech clear, no gross sensory deficit Assessment:: Degenerative disc disease lumbar spine with lumbar radiculopathy symptoms Plan:: We will increase the patient's gabapentin to 600 mg 1 tablet p.o. 4 times daily. We will give the patient a 3-month supply, as he is mail order pharmacy. We will see him back in 3 months for further evaluation of symptoms. Risks and benefits of the medication have been explained in detail to the patient. If side effects do present with the medication, patient has been advised to stop the medication immediately and call the clinic. The patient has been advised to consult with his/her primary care provider and pharmacist regarding drug-drug interaction of medications currently prescribed. Risks and benefits of the medication have been explained in detail to the patient. If side effects do present with the medication, patient has been advised to stop the medication immediately and call the clinic. The patient has been advised to consult with his/her primary care provider and pharmacist regarding drug-drug interaction of medications currently prescribed. Patient has been instructed to contact the clinic with any concerns before the next appointment. Dr. Anne has reviewed this note and agrees with this plan of care. This note was dictated using voice recognition software and make contain errors or omissions. [facility] History I have reviewed the patient's past medical history: Yes Medical History: Reports:: Cardiomyopathy, Coronary Artery Disease, Hyperlipidemia, Hypertension, Migraine Denies:: Cancer, Diabetes Mellitus Type 1, Diabetes Mellitus Type 2, Internal Pacemaker, MRSA, Seizures *Have you ever received a pneumonia vaccine?: No *Have you received a flu vaccine this season?: No Other Medical History: Denies: Blood Transfusion Reaction Laterality Cases: Bilateral: Arthroscopy Knee Other Surgeries: Yes: Cardiac Catheterization, Other. No: Pacemaker Amputation: No Fractures: No - *Social History Smoking Status: Current every day
== END ==
PROVIDERS: Visit Provider Clinical Nurse Specialist Family Health
DX: M51.16 Intervertebral disc disorders with radiculopathy, lumbar region (principal)
CPT/HCPCS: 99212; G0463

== ENCOUNTER → 2021-05-06 08:16 | Outpatient (POV) | payer MEDICARE, SELFPAY ==
[2021-05-06 08:53] VITALS: BP 139/82; PULSE 95; RESP 18; O2SAT 96; BMI 37.3
--- NOTE | 2021-05-06 10:21 | HMH.PAINSOAP ---
[facility] Pain Management SOAP Note Subjective:: This patient is a very pleasant 55-year-old white male who presents today for follow-up and medication refills. He is currently being managed for degenerative disc disease of lumbar spine with lumbar radiculopathy. He has previously undergone spinal cord stimulator placement with the [employer] system and he says that it is functioning appropriately to alleviate his chronic low back and leg pain. He continues to take gabapentin 600 mg 4 times a day which she states is also helping manage his chronic pain symptoms. He denies any adverse effects to this medication. He is requesting refills today. He rates his pain as a 6 out of 10 today. Objective:: General: Alert and oriented x3, no acute distress, pleasant and cooperative Lungs: Resps E/U, symmetric chest expansion Eyes: PERRL Musculoskeletal: limited flexion and extension of the lumbar spine secondary to pain. Deep tendon reflexes were normal in bilateral lower extremities. Motor exam was grossly intact in the bilateral lower extremities, antalgic gait noted. Neurological: Speech is clear, firestop/containment worker equal, no gross sensory deficits Assessment:: Degenerative disc disease of lumbar spine with lumbar radiculopathy Status post spinal cord replacement with the [employer] system Plan:: I discussed with the patient that we will continue and refill the gabapentin 600 mg 1 tablet p.o. 4 times daily #360 for 90-day supply. Follow-up with this patient in 3 months for reassessment of his chronic pain symptoms and medication refills. [facility] #[id number] was reviewed and appropriate. [facility] History Medical History: Reports:: Cardiomyopathy, Coronary Artery Disease, Hyperlipidemia, Hypertension, Migraine Denies:: Cancer, Diabetes Mellitus Type 1, Diabetes Mellitus Type 2, Internal Pacemaker, MRSA, Seizures *Have you ever received a pneumonia vaccine?: No *Have you received a flu vaccine this season?: No Other Medical History: Denies: Blood Transfusion Reaction Laterality Cases: Bilateral: Arthroscopy Knee Other Surgeries: Yes: Cardiac Catheterization, Other. No: Pacemaker Amputation: No Fractures: No - *Social History Smoking Status: Current every day smoker Tobacco Type: cigarettes # Packs/Day (cigarettes): 1 Alcohol Intake: never Alcohol Intake Frequency:: other Substance Use Type: denies use *Occupational Status:: unemployed Housing: house Household Members: spouse *Travel in the last 8 weeks: None Family Hx:: Non-contributory
== END ==
PROVIDERS: Visit Provider Anesthesiology Pain Medicine
DX: M51.16 Intervertebral disc disorders with radiculopathy, lumbar region (principal); Z98.890 Other specified postprocedural states
CPT/HCPCS: 99212; G0463

== ENCOUNTER → 2021-05-14 11:31 | Outpatient (CLI) | payer MEDICARE, SELFPAY | PROVIDERS: PCP Family Medicine; Visit Provider Internal Medicine Pulmonary Disease | DX: J44.9 Chronic obstructive pulmonary disease, unspecified (principal) | CPT/HCPCS: 94762 ==

== ENCOUNTER → 2021-07-29 08:48 | Outpatient (POV) | payer MEDICARE, SELFPAY ==
[2021-07-29 08:54] VITALS: BP 127/80; PULSE 82; RESP 18; TEMP 36.7; O2SAT 96; BMI 36.3
--- NOTE | 2021-07-29 09:54 | HMH.PAINSOAP ---
[facility] Pain Management SOAP Note Subjective:: Patient is a pleasant 55-year-old male who is here for medication refill and follow-up. Patient is currently being treated for degenerative disc disease of the lumbar spine with lumbar radiculopathy symptoms. Patient is being managed with gabapentin 600 mg 4 times a day. Patient denies any side effects from the medications. Patient denies any changes to the location and type of pain. Patient states that this is adequately helping manage their pain. Rates pain as 7 out of 10. [facility] number [id number] with an active morphine equivalent 0. Drug screens have been reviewed and appropriate. Patient states that we have tried injective therapy with him and it aggravated his pain. Review of Systems: General: No recent weight changes, no fever, no sleep disturbances Respiratory: No cough, no shortness of air, no recurring pulmonary infections Cardiovascular/peripheral vascular: No chest pain, no palpitations, no edema, no shortness of breath Gastrointestinal: No new onset incontinence, normal bowel movements reported Genitourinary: No new onset incontinence Musculoskeletal: Low back pain Psychiatric: [Normal mood/affect] Neurological: [Denies weakness in extremities], [denies balance issues] Objective:: Physical Exam: General: Alert and oriented x3, no acute distress, pleasant and cooperative Lungs: Respirations even and unlabored, symmetrical chest expansion Eyes: PERRL Musculoskeletal: Flexion and extension of lumbar [spine] somewhat guarded secondary to pain, [antalgic gait noted] Neurological: Speech clear, no gross sensory deficit Assessment:: Degenerative disc disease of the lumbar spine with lumbar radiculopathy symptoms Plan:: We will continue the patient's gabapentin 600 mg 4 times a day. We will provide the patient with 3 months of refills. We would like to see the patient back in 3 months for follow-up and reevaluation of chronic pain syndrome. Patient has been advised of risks of oversedation with the prescribed medication. Narcan has been offered to the patient in the event of oversedation. Patient has been advised that a family member should also be educated regarding administration of Narcan. Patient has been instructed to contact the clinic with any concerns before the next appointment. Dr. Anne has reviewed this note and agrees with this plan of care. This note was dictated using voice recognition software and make contain errors or omissions. [facility] History Medical History: Reports:: Cardiomyopathy, Coronary Artery Disease, Hyperlipidemia, Hypertension, Migraine Denies:: Cancer, Diabetes Mellitus Type 1, Diabetes Mellitus Type 2, Internal Pacemaker, MRSA, Seizures *Have you ever received a pneumonia vaccine?: No *Have you received a flu vaccine this season?: No Other Medical History: Denies: Blood Transfusion Reaction Laterality Cases: Bilateral: Arthroscopy Knee Other Surgeries: Yes: Cardiac Catheterization, Other. No: Pacemaker Amputation: No Fractures: No - *Social History Smoking Status: Current every day smoker Tobacco Type: cigarettes # Packs/Day (cigarettes): 1 Alcohol Intake: never Alcohol Intake Frequency:: other Substance Use Type: denies use *Occupational Status:: unemployed Housing: house Household Members: spouse *Travel in the last 8 weeks: None Family Hx:: Non-contributory
== END ==
PROVIDERS: Visit Provider Student in an Organized Health Care Education/Training Program
DX: M51.16 Intervertebral disc disorders with radiculopathy, lumbar region (principal)
CPT/HCPCS: 99212; G0463

== ENCOUNTER → 2021-09-10 15:13 | Outpatient (CLI) | payer MEDICARE, SELFPAY ==
--- NOTE | 2021-09-10 15:14 | CT_ITS ---
FINAL REPORT CLINICAL HISTORY: lung cancer screening, current smoker, 1/2 pack per day, copd COMPARISON: September 08, 2020; May 10, 2019 FINDINGS: Low-Dose Chest CT CTDI vol (mGy): 2.90 DLP (mGy-cm): 102.38 Axial images were obtained from the lung apex to the mid abdomen by computed tomography. Low-dose protocol was utilized. FINDINGS: CHEST: There is no axillary adenopathy. There is no hilar or mediastinal adenopathy. The heart is proper size. There is no pericardial or pleural effusion. Limited images of the upper abdomen are unremarkable. Lung window images demonstrate mild patchy groundglass opacities in both upper lobes, stable. There is diffuse bronchial wall thickening consistent with bronchitis. There is a small bulla or pneumatocele in the left lung base. IMPRESSION: Lung RADS category 1. Recommend 12 month follow-up low-dose chest CT. Reviewed, Interpreted and Dictated by Aneudy Musa III, MD Transcribed by Vadim Candelario Authenticated and [facility]
== END ==
PROVIDERS: PCP Family Medicine; Visit Provider Internal Medicine Pulmonary Disease
DX: Z87.891 Personal history of nicotine dependence; Z12.2 Encounter for screening for malignant neoplasm of respiratory organs
CPT/HCPCS: 71271

== ENCOUNTER → 2021-10-28 08:53 | Outpatient (POV) | payer MEDICARE, SELFPAY ==
[2021-10-28 09:06] VITALS: BP 100/66; PULSE 72; RESP 20; BMI 36.1
--- NOTE | 2021-10-28 09:15 | HMH.PAINSOAP ---
[facility] Pain Management SOAP Note Subjective:: Patient is a pleasant 55-year-old male who presents today for medication refill and follow-up. He is currently being treated for degenerative disc disease of lumbar spine with lumbar radiculopathy symptoms. Today he rates his pain a 6 out of 10. He states his pain is all in his low back and describes it as a throbbing sensation that is worse with activity. He denies any new trauma or injury. He denies any change to the location or type of pain he he experiences patient is currently being managed with gabapentin 600 mg 4 times a day. He denies any side effects from this medication. He states this medication is adequately managing his pain. His Ancelmo is [id number]. Is been reviewed and appropriate. Review of Systems: General: No recent weight changes, no fever, no sleep disturbances Respiratory: No cough, no shortness of air, no recurring pulmonary infections Cardiovascular/peripheral vascular: No chest pain, no palpitations, no edema, no shortness of breath Gastrointestinal: No new onset incontinence, normal bowel movements reported Genitourinary: No new onset incontinence Musculoskeletal: Low back pain Psychiatric: [Normal mood/affect] Neurological: [Denies weakness in extremities], [denies balance issues] Objective:: Physical Exam: General: Alert and oriented x3, no acute distress, pleasant and cooperative Lungs: Respirations even and unlabored, symmetrical chest expansion Eyes: PERRL Musculoskeletal: Flexion and extension of lumbar [spine] somewhat guarded secondary to pain, [antalgic gait noted] Neurological: Speech clear, no gross sensory deficit Assessment:: Degenerative disc disease of lumbar spine with lumbar radiculopathy symptoms Plan:: Patient is doing well with his prescription medication. I will refill the patient's gabapentin 600 mg times a day. I will provide a 3-month supply of this medication. Patient will return to clinic in 3 months for follow-up and medication refill. Patient has been advised of risks of oversedation with the prescribed medication. Narcan has been offered to the patient in the event of oversedation. Patient has been advised that a family member should also be educated regarding administration of Narcan. Patient has been instructed to contact the clinic with any concerns before the next appointment. Dr. Anne has reviewed this note and agrees with this plan of care. This note was dictated using voice recognition software and make contain errors or omissions. [facility] History I have reviewed the patient's past medical history: Yes Medical History: Reports:: Cardiomyopathy, Coronary Artery Disease, Hyperlipidemia, Hypertension, Migraine Denies:: Cancer, Diabetes Mellitus Type 1, Diabetes Mellitus Type 2, Internal Pacemaker, MRSA, Seizures *Have you ever received a pneumonia vaccine?: No *Have you received a flu vaccine this season?: No Other Medical History: Denies: Blood Transfusion Reaction Laterality Cases: Bilateral: Arthroscopy Knee Other Surgeries: Yes: Cardiac Catheterization, Other. No: Pacemaker Amputation: No Fractures: No - *Social History Smoking Status: Current every day smoker Tobacco Type: cigarettes # Packs/Day (cigarettes): 1 Alcohol Intake: never Alcohol Intake Frequency:: other Substance Use Type: denies use *Occupational Status:: other Housing: house Household Members: spouse *Travel in the last 8 weeks: None Family Hx:: Non-contributory
== END ==
PROVIDERS: PCP Family Medicine; Visit Provider Nurse Practitioner Family
DX: M51.16 Intervertebral disc disorders with radiculopathy, lumbar region (principal)
CPT/HCPCS: 99212; G0463

== ENCOUNTER → 2021-12-16 08:57 | Outpatient (POV) | payer MEDICARE, SELFPAY ==
--- NOTE | 2021-12-16 09:17 | EXP.PAIN.SOA ---
[facility] Pain Management SOAP Note Subjective:: Patient is a pleasant 56-year-old male who presents today for medication refill and follow-up. We are currently treating the patient for degenerative disc disease of lumbar spine with lumbar radiculopathy symptoms. Today the patient rates his pain a 7 out of 10. He states pain is in his low back and describes it as a throbbing sensation that is worse with increased activity. Patient denies any new trauma or injury. He denies any change in location or type of pain he experiences. He is currently managed with gabapentin 600 mg 4 times a day. He denies any side effects from this medication. He states he is not noticing significant improvement of his pain symptoms with this medication as he did originally. He is requesting refill at today's visit. His Ancelmo is [id number]. It has been reviewed and appropriate . Review of Systems: General: No recent weight changes, no fever, no sleep disturbances Respiratory: No cough, no shortness of air, no recurring pulmonary infections Cardiovascular/peripheral vascular: No chest pain, no palpitations, no edema, no shortness of breath Gastrointestinal: No new onset incontinence, normal bowel movements reported Genitourinary: No new onset incontinence Musculoskeletal: Low back pain Psychiatric: [Normal mood/affect] Neurological: [Denies weakness in extremities], [denies balance issues] Objective:: Physical Exam: General: Alert and oriented x3, no acute distress, pleasant and cooperative Lungs: Respirations even and unlabored, symmetrical chest expansion Eyes: PERRL Musculoskeletal: Flexion and extension of lumbar [spine] somewhat guarded secondary to pain, [antalgic gait noted] Neurological: Speech clear, no gross sensory deficit Assessment:: Degenerative disc disease lumbar spine with lumbar radiculopathy symptoms Plan:: Patient continues to have significant pain in his low back during today's visit. He did have limited range of motion of his lumbar spine during our exam. I will refill the patient's gabapentin 600 mg 4 times a day and provide a 3-month supply of this medication I will also order him a compounding cream at today's visit. Patient will follow back up in 3 months. Patient will return to clinic in 3 months for reevaluation of symptoms medication refill and follow-up. Patient has been advised of risks of oversedation with the prescribed medication. Narcan has been offered to the patient in the event of oversedation. Patient has been advised that a family member should also be educated regarding administration of Narcan. Patient has been instructed to contact the clinic with any concerns before the next appointment. Dr. Anne has reviewed this note and agrees with this plan of care. This note was dictated using voice recognition software and make contain errors or omissions. [facility] Medical History (Updated 04/08/20 @ 11:36 by Jagdish Mcmillan MD) CAD (coronary artery disease) Dyspnea Edema Gastroesophageal reflux disease HHD (hypertensive heart disease) HLD (hyperlipidemia) Non-ischemic cardiomyopathy NYHA class 3 acute on chronic systolic heart failure NYHA class 3 heart failure with reduced ejection fraction Other forms of angina pectoris Social History Smoking Status: Current every day smoker tobacco type: cigarettes packs per day: 1 alcohol intake: never substance use type: denies use current occupational status: other Travel in the last 8 weeks: None household members: spouse housing: house current occupational exposures/hazards: No caffeine: Yes
[2021-12-16 09:51] VITALS: BP 148/104; PULSE 88; RESP 18; TEMP 36.9; O2SAT 94; BMI 36.9
== END | disposition home or self-care (01) ==
PROVIDERS: PCP Family Medicine; Visit Provider Nurse Practitioner Family
DX: M51.16 Intervertebral disc disorders with radiculopathy, lumbar region (principal); Z72.0 Tobacco use; Z79.899 Other long term (current) drug therapy
CPT/HCPCS: 99212; G0463

== ENCOUNTER → 2022-02-18 11:13 | Outpatient (CLI) | payer MEDICARE, SELFPAY ==
--- NOTE | 2022-02-18 | CA_ITS ---
APPROVED REPORT Exam: Pharmacologic Technologist: Anh Soto, Ht: 5 ft 10 in Wt: 265 lbs BSA: 2.35 m2 HR: 78 bpm BP: 135/93 mmHg Medical History Medical History: HTN, Hyperlipidemia Medications: Omeprazole,,,,, Potassium Chloride,,,,, Gabapentin,,,,, Losartan,,,,, Metoprolol Succinate,,,,, Albuterol,,,,, Celecoxib,,,,, Quetiapine,,,,, LaMotrigine,,,,, RoSUVASTATIN,,,,, SpirOnALACTONE,,,,, Respimat,,,,, Cardiac Risk Factors: HTN, Hyperlipidemia, Smoking Stress Test Details Test: LEXISCAN HR Resting HR: 88 bpm Max Heart Rate (APMHR): 165.366576 bpm Max HR Achieved: 119 bpm Target HR (85% APMHR): 140.008941 bpm % of APMHR: 72.12 BP Resting BP: 135/93 mmHg Max BP: 149/91 mmHg Recovery BP: 149.0/91.0 mmHg ECG Clinical Reason for Termination: Completed Protocol Exercise duration: 04:01 min Highest Stage Achieved: Stress ECG Conclusion NO CP. <1.[address] SEGMENT CHANGES NON-DIAGNOSTIC Test Summary REST 18:59 . . 88 . 135/ 93 . . Stage 1 01:00 . . 89 . . . . Stage 2 01:00 . . 101 . . . . Stage 3 01:00 . . 96 . 133/ 91 . . Stage 4 01:00 . . 83 . 136/ 83 . . Stage 4 01:01 . . 83 . 136/ 83 . Stop exercise at 04:01 RECOVERY 01:00 . . 89 . 147/ 89 . . RECOVERY 02:00 . . 100 . 149/ 91 . . RECOVERY 02:44 . . 0 . 149/ 91 . . Electronically signed by : Ron Worley MD 02/18/2022 15:51:14
--- NOTE | 2022-02-18 11:13 | NM_ITS ---
APPROVED REPORT Exam: Nuclear Stress Test Indication: chest pain..short of breath..syncope Patient Location: Outpatient Stress Tech: Anh Soto DE Tech:JOAQUIN Gray RT (R)(N)(M) Ht: 5 ft 10 in Wt: 256 lbs HR: 88 bpm BP: 135/93 mmHg BSA: 2.32 m2 TID: 1.23 BMI: 36.7 History: chest pain..short of breath..syncope Procedure: Patient received a 0.4 mg of intravenous Lexiscan, resting heart rate 88 bpm, resting blood pressure 135/93 mmHg, with Lexiscan maximum heart rate achived was 119 bpm which is Less than 85 % of the maximum predicted heart rate and blood pressure was 149/91 mmHg. With Lexiscan, patient denied any complaint of chest pain. Electrocardiogram Resting electrocardiogram shows sinus rhythm, with Lexiscan there is less than 1.[address] segment depression noted from the baseline EKG. The EKG portion of the Lexiscan is nondiagnostic. Cardiac Stress and Resting SPECT Images: Cardiac Stress and Resting SPECT images were obtained using technetium 99m Myoview 29.6 mCi stress and 10.75 mCi at rest. Gated SPECT analysis of segmental wall motion and calculation of the ejection fraction also done. Cardiac stress and rest SPECT may show reversible ischemia involving the inferior apical wall, computer derived ejection fraction is 52% with no regional wall motion abnormality, right ventricle is normal size and contractility. Conclusion: 1. The EKG portion of the Lexiscan is nondiagnostic. 2. Scintigraphic evidence of reversible ischemia involving the inferior apical wall, computer derived ejection fraction 52% with no regional wall motion abnormality, right ventricle is normal size and contractility. 3. Abnormal Lexiscan Myoview study. Electronically signed by : Ron Worley MD 02/18/2022 15:24:36
--- NOTE | 2022-02-18 12:27 | CA_ITS ---
APPROVED REPORT EXAM: Comprehensive 2D, Doppler, and color-flow Echocardiogram Supervisor [employer]: Claire Cervnates RVT Ht: 5 ft 10 in Wt: 265lbs BSA: 2.35 BP: 129/82 mmHg Indications: CP,SOA,TACHYCARDIA,CAD,EDEMA,GERD,HTN,HLD 2D Dimensions LVOT 2.47 cm (M/F) 1.5-2.5 LA Volume 42.70 mL LA Volume Index 18.17 mL/m2 (M/F) 16-34 M-Mode Dimensions RVDd 2.81 cm (0.9-2.6) LA Diam 4.80 cm (1.9-4.0) LVDd 5.80 cm (3.5-5.7) Ao Diam 3.50 cm (2.0-3.7) LVDs 4.37 cm (3.5-5.7) IVSd 1.61 cm (0.6-1.1) PWd 0.98 cm (0.6-1.1) EF (Teich) 48.20% FS 24.70% EDV (Teich) 166.60 mL TAPSE 2.12 (<1.7) ESV (Teich) 86.30 mL LV Diastology E Decel Time 227.00 (160-240 msec) E/A Ratio 1.0 MED E' 5.70 (< 7 cm/sec) E'/MED E' Ratio 16.58 (>14) LAT E' 7.10 (<10 cm/sec) E/LAT E' Ratio 13.31 (>14) Aortic Valve AO Peak GR. 6.40 mmHg Mitral Valve MV E Max Jan. 95.00 (40-130 cm/s) MV A Velocity 98.00 (40-130 cm/s) E/A Ratio 0.96 MV Decel. Time 227.00 (160-240 ms) MV PHT 66.00 ms Pulmonary Valve PV Peak Velocity 91.00 (50-150 cm/s) Left Ventricle Left atrium is mildly enlarged, left ventricle is normal size mild concentric left ventricular hypertrophy, estimated ejection fraction 55% with no regional wall motion abnormality, grade 1 diastolic dysfunction seen with tissue Doppler evidence of raise left atrial pressure. Right Ventricle Right atrium and right ventricle are mildly enlarged with normal contractility. Aortic Valve Aortic valve is minimally thickened and fibrosed there is no aortic stenosis aortic insufficiency. Mitral Valve Mitral valve is mild mitral calcification there is no mitral stenosis, there is mild mitral regurgitation. Tricuspid Valve Tricuspid valve is grossly normal, there is mild tricuspid regurgitation, tricuspid regurgitation jet velocity is inadequate for calculation of the right ventricular systolic pressure. Pulmonic Valve Pulmonic valve is poorly visualized. Great Vessels Aortic root is normal size. Inferior vena cava is poorly visualized. Pericardium No significant pericardial effusion noted. Conclusion 1. Mild biatrial enlargement, normal left ventricular size, mild concentric left ventricular hypertrophy, estimated ejection fraction 55% with no regional wall motion abnormality, grade 1 diastolic dysfunction seen with tissue Doppler evidence of raise left atrial pressure. 2. Mildly enlarged right ventricle with normal contractility. 3. Mild mitral and tricuspid regurgitation. 4. No significant pericardial effusion noted. There is anterior echo-free space seen. 5. Inferior vena cava is poorly visualized. Electronically signed by : Ron Worley MD 02/18/2022 14:45:46
== END ==
PROVIDERS: PCP Family Medicine; Visit Provider Internal Medicine Cardiovascular Disease
DX: E78.2 Mixed hyperlipidemia (principal); F17.200 Nicotine dependence, unspecified, uncomplicated; I11.9 Hypertensive heart disease without heart failure; I25.118 Atherosclerotic heart disease of native coronary artery with other forms of angina pectoris; I42.8 Other cardiomyopathies; K21.9 Gastro-esophageal reflux disease without esophagitis; R00.0 Tachycardia, unspecified; R06.00 Dyspnea, unspecified; R07.89 Other chest pain
CPT/HCPCS: 78452; 93017; 93306; A9502; J2785

== ENCOUNTER → 2022-03-07 08:44 | Outpatient (POV) | payer MEDICARE, SELFPAY ==
[2022-03-07 08:55] VITALS: BP 117/75; PULSE 103; RESP 18; O2SAT 93; BMI 37.3
--- NOTE | 2022-03-07 09:45 | A.OFFVIS_ITS ---
[facility] Pain Management SOAP Note Subjective:: Patient is a pleasant 56-year-old male who is here for medication refill and follow-up. Patient is currently being treated for degenerative disease of lumbar spine Radiculopathy symptom. Patient is being managed with gabapentin 600 mg 4 times a day. Patient denies any side effects from the medications. Patient denies any changes to the location and type of pain. Patient states that this is adequately helping manage their pain. Rates pain as 7 out of 10. [facility] number [id number] with an active morphine equivalent 0. Drug screens have been reviewed and appropriate. Review of Systems: General: No recent weight changes, no fever, no sleep disturbances Respiratory: No cough, no shortness of air, no recurring pulmonary infections Cardiovascular/peripheral vascular: No chest pain, no palpitations, no edema, no shortness of breath Gastrointestinal: No new onset incontinence, normal bowel movements reported Genitourinary: No new onset incontinence Musculoskeletal: Low back pain Psychiatric: [Normal mood/affect] Neurological: [Denies weakness in extremities], [denies balance issues] Objective:: Physical Exam: General: Alert and oriented x3, no acute distress, pleasant and cooperative Lungs: Respirations even and unlabored, symmetrical chest expansion Eyes: PERRL Musculoskeletal: Flexion and extension of lumbar [spine] somewhat guarded secondary to pain, [antalgic gait noted] Neurological: Speech clear, no gross sensory deficit Assessment:: Degenerative disc disease of lumbar spine with lumbar radiculopathy symptoms Plan:: Patient wants to decrease the amount of tablets that he takes a day. We will change the patient's gabapentin to Gabapentin 800mg TID. Will provide 1 month of refill. Follow up in 1 month Patient has been advised of risks of oversedation with the prescribed medication. Narcan has been offered to the patient in the event of oversedation. Patient has been advised that a family member should also be e ducated regarding administration of Narcan. Patient has been instructed to contact the clinic with any concerns before the next appointment. Dr. Anne has reviewed this note and agrees with this plan of care. This note was dictated using voice recognition software and make contain errors or omissions. [facility] Disclaimer: The information contained in this section may have been updated after the patient was seen, as this information can be updated by other users. Medical History CAD (coronary artery disease) Dyspnea Edema Gastroesophageal reflux disease HHD (hypertensive heart disease) HLD (hyperlipidemia) Non-ischemic cardiomyopathy NYHA class 3 acute on chronic systolic heart failure NYHA class 3 heart failure with reduced ejection fraction Other forms of angina pectoris Social History Smoking Status: Current every day smoker tobacco type: cigarettes packs per day: 1 alcohol intake: never substance use type: denies use current occupational status: disabled Travel in the last 8 weeks: None household members: spouse housing: house current occupational exposures/hazards: No caffeine: Yes
== END ==
PROVIDERS: PCP Psychiatry & Neurology Sleep Medicine; Visit Provider Student in an Organized Health Care Education/Training Program
DX: M51.16 Intervertebral disc disorders with radiculopathy, lumbar region (principal); F17.210 Nicotine dependence, cigarettes, uncomplicated
CPT/HCPCS: 99212; G0463

== ENCOUNTER 2022-03-10 08:10 | Day surgery (SDC) | payer MEDICARE, SELFPAY ==
[2022-03-10] VITALS (12 sets, daily range): BP systolic 96–132; BP diastolic 59–85; PULSE 75–91; RESP 16–20; TEMP 36.9; O2SAT 90–98; BMI 39.2
--- NOTE | 2022-03-10 07:11 | IR_ITS ---
APPROVED REPORT Patient Location: Outpatient Aircraft Dispatcher: JOAQUIN Everett RT (R) PROCEDURES Selective coronary angiogram INDICATION Persistent recalcitrant angina pectoris, Abnormal CCTA with 55% coronary artery stenosis and a codominant circumflex artery Informed consent was obtained prior to the procedure. COMPLICATIONS None Estimated Blood Loss: Less than 10 mls TECHNIQUE One percent lidocaine used to anesthetize the right anterior aspect of the wrist. The right radial artery was accessed via the Seldinger technique. A 6 Slovak sheath was placed in the right radial artery. 2.5 mg of verapamil, 800 mcg of nitroglycerin, 1mg Lidocaine and 5000 U Heparin were given through the arterial sheath. The papa catheter was also used to perform left heart catheterization, left ventriculogram and selective coronary angiogram. At the end of the procedure the sheath was removed good hemostasis was achieved using Traclet band, patient was transferred to the postop holding area in stable condition. ANGIOGRAPHIC RESULTS The left main artery Normal The left anterior descending artery Normal The circumflex artery Codominant normal The right coronary artery Codominant normal The PALMA ventriculogram reveals Not performed The left ventricular end-diastolic pressure Not measured IMPRESSION Normal coronary arteries False positive CTA PLAN 1. Treatment and evaluation of noncardiac chest pain Electronically signed by : Alexsander Anderson MD 03/10/2022 11:37:33
[2022-03-10 09:11] LABS: Basophils # 0.1 K/mm3 (0-0.2); Basophils % 1.1 % (0.1-2.0); Eosinophils # 0.2 K/mm3 (0.0-0.4); Eosinophils % 2.4 % (0.1-12.0); Lymphocytes # 1.6 K/mm3 (0.7-4.5); Lymphocytes % 23.1 % (10-50); Mean Corpuscular HGB Conc 32.1 g/dL (31.8-35.4); Mean Corpuscular Hemoglobin 28.5 pg (27.0-31.2); Mean Corpuscular Volume 88.9 fl (80-94); Mean Platelet Volume 9.5 fl (7.4-10.4); Monocytes # 0.4 K/mm3 (0.1-1.0); Monocytes % 5.9 % (1.7-9.3); Neutrophils # 4.7 K/mm3 (1.8-7.8); Neutrophils % 67.5 % (37.0-80.0); Platelet Count 149 K/mm3 (142-424); Red Blood Count 5.63 M/mm3 (4.60-6.20); Red Cell Distribution Width 13.8 % (11.5-17.5); White Blood Count 6.9 K/mm3 (4.8-10.8)
[2022-03-10 09:15] LABS: Chloride 101 mmol/L (98-107); Sodium 139 mmol/L (136-145)
[2022-03-10 09:16] LABS: Potassium 3.9 mmoL/L (3.5-5.1)
[2022-03-10 09:19] LABS: Anion Gap 9.9 mEq/L (5-15); Blood Urea Nitrogen 14 mg/dl (9-20); Carbon Dioxide 32 mmol/L (22.0-30.0); Creatinine Clearance Estimated 97 mL/min (50-200); Estimated Glomerular Filt Rate 49 ml/min (>60); GFR (African American) 59 ML/MIN (>60); Glucose 135 mg/dl (74-100)
== END 2022-03-10 13:34 | disposition home or self-care (01) ==
PROVIDERS: Physician Assistant; PCP Psychiatry & Neurology Sleep Medicine; Visit Provider Internal Medicine
DX: E78.2 Mixed hyperlipidemia (principal); I11.0 Hypertensive heart disease with heart failure; I25.118 Atherosclerotic heart disease of native coronary artery with other forms of angina pectoris; I42.8 Other cardiomyopathies; K21.9 Gastro-esophageal reflux disease without esophagitis; R94.39 Abnormal result of other cardiovascular function study; F17.210 Nicotine dependence, cigarettes, uncomplicated; Z79.899 Other long term (current) drug therapy; I50.23 Acute on chronic systolic (congestive) heart failure; J44.9 Chronic obstructive pulmonary disease, unspecified
CPT/HCPCS: 36415; 80048; 85025; 93458; 99152; C1725; C1760; C1769; J1644; Q9967

== ENCOUNTER → 2022-03-22 10:25 | Outpatient (CLI) | payer MEDICARE, SELFPAY ==
[2022-03-22 11:53] LABS: Anion Gap 10.3 mEq/L (5-15); Blood Urea Nitrogen 15 mg/dl (9-20); Calcium 9.2 mg/dl (8.4-10.2); Carbon Dioxide 30 mmol/L (22.0-30.0); Chloride 100 mmol/L (98-107); Estimated Glomerular Filt Rate 57 ml/min (>60); GFR (African American) 69 ML/MIN (>60); Glucose 155 mg/dl (74-100); Potassium 4.3 mmoL/L (3.5-5.1); Sodium 136 mmol/L (136-145)
== END ==
PROVIDERS: PCP Family Medicine; Visit Provider Nurse Practitioner Family
DX: R00.0 Tachycardia, unspecified (principal)
CPT/HCPCS: 36415; 80048

== ENCOUNTER → 2022-05-23 09:12 | Outpatient (POV) | payer MEDICARE, SELFPAY ==
--- NOTE | 2022-05-23 09:55 | EXP.PAIN.SOA ---
[facility] Pain Management SOAP Note Subjective:: Patient is a pleasant 56-year-old male who presents today for 3-month follow-up with medication refill. We are currently treating the patient for degenerative disc disease of lumbar spine with lumbar radiculopathy symptoms. Today he rates his pain a 8 out of 10. Patient denies any new trauma or injury. Patient denies any change location or type of pain he experiences. Patient is managed with a [employer] spinal cord stimulator that he states did previously help significantly. He states he has been having trouble getting this device to charge and it has been sometime since its been reprogrammed. Patient is currently managed with gabapentin 600 mg 4 times a day. Patient denies any side effects from this medication. His Ancelmo is [id number]. Its been reviewed and appropriate. Review of Systems: General: No recent weight changes, no fever, no sleep disturbances Respiratory: No cough, no shortness of air, no recurring pulmonary infections Cardiovascular/peripheral vascular: No chest pain, no palpitations, no edema, no shortness of breath Gastrointestinal: No new onset incontinence, normal bowel movements reported Genitourinary: No new onset incontinence Musculoskeletal: Low back pain Psychiatric: [Normal mood/affect] Neurological: [Denies weakness in extremities], [denies balance issues] Objective:: Physical Exam: General: Alert and oriented x3, no acute distress, pleasant and cooperative Lungs: Respirations even and unlabored, symmetrical chest expansion Eyes: PERRL Musculoskeletal: Flexion and extension of lumbar [spine] somewhat guarded secondary to pain, [antalgic gait noted] Neurological: Speech clear, no gross sensory deficit ORT score updated with low risk Assessment:: Degenerative disc disease of lumbar spine with lumbar radiculopathy symptoms Plan:: Patient is having worsening back pain related to trouble with his [employer] spinal cord stimulator. I will contact a home furnishings sales representative from this company to get in touch with him for help with charging issues as well as reprogramming him. I will refill his gabapentin 600 mg 4 times a day and provide a 3-month supply of this medication. I have discussed with the patient that he may benefit from lumbar epidural injections in the future if this continues to be an issue. Patient will return to clinic in 3 months for reevaluation of symptoms, medication refill and follow-up. Patient has been instructed to contact the clinic with any concerns before the next appointment. Dr. Anne has reviewed this note and agrees with this plan of care. This note was dictated using voice recognition software and make contain errors or omissions. [facility] Disclaimer: The information contained in this section may have been updated after the patient was seen, as this information can be updated by other users. Medical History CAD (coronary artery disease) Chronic hypoxemic respiratory failure COPD (chronic obstructive pulmonary disease) Dyspnea Dyspnea on exertion Edema Elevated left ventricular end-diastolic pressure (LVEDP) Gastroesophageal reflux disease HHD (hypertensive heart disease) HLD (hyperlipidemia) Nocturnal hypoxemia Non-ischemic cardiomyopathy NYHA class 3 acute on chronic systolic heart failure NYHA class 3 heart failure with reduced ejection fraction Other forms of angina pectoris Pulmonary emphysema Screening for lung cancer Sinus tachycardia Sleep apnea Smoking greater than 30 pack years Tobacco abuse counseling Tobacco abuse disorder Surgical History History of arthroscopic knee surgery Family History Other Family history non-contributory Social History Smoking Status: Current every day smoker tobacco type: cigarettes packs
[2022-05-23 11:06] VITALS: BP 115/73; PULSE 88; RESP 18; O2SAT 98; BMI 36.8
== END | disposition home or self-care (01) ==
PROVIDERS: PCP Family Medicine; Visit Provider Nurse Practitioner Family
DX: M51.16 Intervertebral disc disorders with radiculopathy, lumbar region (principal)
CPT/HCPCS: 99212; G0463

== ENCOUNTER → 2022-07-29 11:52 | Outpatient (CLI) | payer MEDICARE, SELFPAY ==
[2022-07-29 12:15] LABS: Coronavirus 19, PCR Not Detected (NotDetected); Influenza A, PCR Not Detected (NotDetected); Influenza B, PCR Not Detected (NotDetected)
== END ==
PROVIDERS: PCP Family Medicine; Visit Provider Physician Assistant
DX: Z20.822 Contact with and (suspected) exposure to COVID-19 (principal)
CPT/HCPCS: 87635; 87636; C9803; U0003; U0005

== ENCOUNTER 2022-08-04 10:29 | Outpatient (CLI) | payer MEDICARE, SELFPAY ==
[2022-08-04 10:38] VITALS: BMI 34.4
--- NOTE | 2022-08-04 10:40 | XR_ITS ---
FINAL REPORT CLINICAL HISTORY: bronchitis FINDINGS: A single portable view of the chest was obtained. The heart size and pulmonary vascularity are within normal limits. The mediastinum is within normal limits. There are mild left base opacities which may represent atelectasis or pneumonia. Postoperative changes are noted in the lower cervical spine. IMPRESSION: Mild left base opacities may represent atelectasis or pneumonia. Reviewed, Interpreted and Dictated by Aneudy Musa III, MD Transcribed by Jackie Perea Authenticated and [facility]
[2022-08-04 11:03] VITALS: BP 105/59; PULSE 93; RESP 18; TEMP 36.3; O2SAT 97
[2022-08-04 11:14] LABS: Alanine Aminotransferase 52 U/L (12-78); Albumin Level 4.3 g/dl (3.5-5.0); Albumin/Globulin Ratio 1.2 (1.1-1.8); Alkaline Phosphatase 138 U/L (38-126); Anion Gap 22.9 mEq/L (5-15); Aspartate Amino Transferase 45 U/L (17-59); Blood Urea Nitrogen 21 mg/dl (9-20); Calcium 10.2 mg/dl (8.4-10.2); Carbon Dioxide 25 mmol/L (22.0-30.0); Chloride 82 mmol/L (98-107); Creatinine Clearance Estimated 113 mL/min (50-200); Estimated Glomerular Filt Rate 69 ml/min (>60); GFR (African American) 84 ML/MIN (>60); Globulin 3.6 g/dL (1.3-3.2); Potassium 4.9 mmoL/L (3.5-5.1); Sodium 125 mmol/L (136-145); Total Protein,Serum 7.9 g/dl (6.3-8.2)
[2022-08-04 11:26] LABS: Glucose 694 mg/dl (74-100)
[2022-08-04 12:15] VITALS: BP 130/91; PULSE 85; RESP 18; TEMP 36.4; O2SAT 97
--- NOTE | 2022-08-04 12:19 | PC.NURSE ---
at at 1125, Patricia Andrew from lab called critical lab results to Yas Bassett RN. Glucose 694. name, and lab results verified and read back by RN. MARIANNA Estrada was notified and ordered an acetone and lactic acid level to be drawn and wants pt to come back to MD office after fluids are finished in infusion dept. No additional orders given at this time.
[2022-08-04 12:25] LABS: Lactic Acid 1.5 mmol/L (0.7-2.1)
[2022-08-04 12:32] LABS: Acetone, Serum (Rapid) None Detected (None Detect)
[2022-08-04 12:45] VITALS: BP 134/82; PULSE 86; RESP 18; O2SAT 99
[2022-08-04 13:25] VITALS: BP 131/82; PULSE 84; RESP 18; O2SAT 98
--- NOTE | 2022-08-04 13:37 | PC.NURSE ---
1158- kykamari from lab kate acetone and lactic acid per MARIANNA Salgado.
--- NOTE | 2022-08-04 13:44 | PC.NURSE ---
1220- IV removed and pt instructed to return to MD office for further evaluation. Spouse was present.
== END 2022-08-04 13:25 | disposition home or self-care (01) ==
PROVIDERS: PCP Family Medicine; Visit Provider Physician Assistant
DX: E86.0 Dehydration (principal); R11.2 Nausea with vomiting, unspecified; J40 Bronchitis, not specified as acute or chronic
CPT/HCPCS: 36415; 71045; 80053; 82009; 83605; 96374

== ENCOUNTER → 2022-08-12 11:01 | Outpatient (CLI) | payer MEDICARE, SELFPAY ==
--- NOTE | 2022-08-12 11:09 | XR_ITS ---
FINAL REPORT CLINICAL HISTORY: PNEUMONIA OF LT LOWER LOBE COMPARISON: 08/04/2022 FINDINGS: TWO-VIEW CHEST The heart size is normal. The mediastinum is normal. There are worsening bibasilar opacities, favor atelectasis. There is postoperative change in the lower cervical spine. A spinal stimulator is present. There is no pneumothorax. IMPRESSION: Worsening bibasilar opacities, favor atelectasis. Reviewed, Interpreted and Dictated by Aneudy Musa III, MD Transcribed by Osiris Haque Authenticated and [facility]
== END ==
PROVIDERS: PCP Family Medicine; Visit Provider Physician Assistant
DX: J18.9 Pneumonia, unspecified organism (principal)
CPT/HCPCS: 71046

== ENCOUNTER → 2022-08-26 13:41 | Outpatient (CLI) | payer MEDICARE, SELFPAY ==
--- NOTE | 2022-08-26 13:44 | CT_ITS ---
FINAL REPORT TECHNIQUE: Axial images were obtained from the lung apex to the mid abdomen by computed tomography. Coronal reformatted images were obtained. This study was performed with techniques to keep radiation doses as low as reasonably achievable, (ALARA). Individualized dose reduction techniques using automated exposure control or adjustment of mA and/or kV according to the patient's size were employed. CLINICAL HISTORY: PNEUMONIA COMPARISON: None FINDINGS: Mild lingular atelectasis. No areas of pneumonia are identified. No suspicious pulmonary nodule. No pleural or pericardial effusion is seen. No adenopathy or mass lesion is present. IMPRESSION: No evidence of pneumonia. Reviewed, Interpreted and Dictated by Gelacio Moody MD Transcribed by Cindy Oscar Authenticated and [facility]
== END ==
PROVIDERS: PCP Family Medicine; Visit Provider Physician Assistant
DX: J18.9 Pneumonia, unspecified organism (principal)
CPT/HCPCS: 71250

== ENCOUNTER 2022-09-02 12:22 | Emergency (ER) | payer MEDICARE, SELFPAY ==
[2022-09-02] VITALS (16 sets, daily range): BP systolic 86–123; BP diastolic 46–89; PULSE 79–101; RESP 14–20; TEMP 36.9; O2SAT 92–97; BMI 34.7
--- NOTE | 2022-09-02 12:18 | ECG_ITS ---
APPROVED REPORT Exam: Resting ECG HR:93 bpm ECG Measurements Heart Rate 93 AXES UT 167 P 55 QRSd 113 QRS 130 QT 376 T 70 QTc 427 Conclusion SINUS RHYTHM POSSIBLE RIGHT VENTRICULAR HYPERTROPHY [SOME/ALL OF: PROMINENT R IN V1, LATE TRANSITION, RAD, RIAZ, SSS] ABNORMAL ECG UNCONFIRMED REPORT Electronically signed by : Maged Guillen MD 09/02/2022 16:17:01
--- NOTE | 2022-09-02 12:24 | XR_ITS ---
FINAL REPORT CLINICAL HISTORY: CP COMPARISON: 08/12/2022 FINDINGS: SINGLE-VIEW CHEST The heart size is normal. The mediastinum is normal. There is persistent but improved bibasilar atelectasis or pneumonia. Postoperative changes are seen in the lower cervical spine. There is no pneumothorax. IMPRESSION: Persistent but improved bibasilar atelectasis versus pneumonia. Reviewed, Interpreted and Dictated by Aneudy Musa III, MD Transcribed by Osiris Haque Authenticated and [facility]
--- NOTE | 2022-09-02 12:37 | HMH.EDGENADL ---
Discharge Plan Disposition Patient Disposition: Home, Self-Care Prescriptions Prescriptions: No Action quetiapine [Seroquel] 200 mg tablet 450 mg PO QDAY vilazodone 40 mg tablet 40 mg PO DAILY omeprazole 40 mg capsule,delayed release(DR/EC) 40 mg PO DAILY Qty: 30 5RF albuterol sulfate 90 mcg/actuation HFA aerosol inhaler 1 inh IH QID PRN (Reason: shortness of breath or wheezing) 90 Days Qty: 8.5 2RF nitroglycerin [Nitrostat] 0.4 mg tablet, sublingual 0.4 mg sublingual Q5M PRN (Reason: chest pain) Qty: 20 0RF Rx Instructions: do not exceed 3 doses per episode lamotrigine 150 mg tablet 200 mg PO BID potassium chloride 10 mEq tablet extended release 10 meq PO DAILY furosemide 40 mg tablet 40 mg PO DAILY Rx Instructions: TAKE 1 TABLET DAILY FOR EDEMA (SWELLING) aspirin [Adult Aspirin Regimen] 81 mg tablet,delayed release (DR/EC) 81 mg PO DAILY losartan 100 mg tablet 100 mg PO DAILY rosuvastatin 20 mg tablet 20 mg PO ONCE Rx Instructions: TAKE 1 TABLET DAILY FOR CHOLESTEROL Stiolto Respimat 2.5-2.5 mcg/actuation mist 2 puff inhalation DAILY gabapentin 600 mg tablet 600 mg PO QID Qty: 360 0RF amlodipine 5 mg tablet 5 mg PO DAILY Rx Instructions: TAKE 1 TABLET EVERY DAY FOR BLOOD PRESSURE Referrals Follow up/Referrals: Alexsander Anderson MD [Staff Physician] - See instructions (next available appointment ) ProviderLuis MD [Referring] - See instructions Activity Restrictions/Add. Instructions Additional Instructions/Restrictions: Follow-up with Dr. Anderson as soon as possible return to the emergency department with any worsening or recurrent chest pain Clinical Impressions Clinical Impression: Chest pain Discharge ED Provider: oCle Blanco General Adult HPI General Chief complaint: Chest Pain Stated complaint: CP Time Seen by Provider: 09/02/22 12:37 Mode of Arrival: Ambulatory Source of Information: Patient Limitations: No Limitations Description of Symptoms (Recalled from ER Triage Doc. 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 pt reports he took 1SL nitro tablet when his pain started and after the nitro his pain remained dull. pt denies any pain radiation/numbness/tingling. pt reports a hx of htn, but denies any stents/pacemaker. pt does report taking 81mg of ASA daily. History of Present Illness HPI narrative: Patient is a 56-year-old male with a history of nonischemic cardiomyopathy followed by cardiology with medical management presenting today with acute shortness of breath and chest pressure. States that he was mowing the grass and had sudden onset of chest discomfort and pressure described as being retrosternal no radiation associated diaphoresis and shortness of breath. States he took a sublingual nitroglycerin which he had at home had improvement in his symptoms within 5 minutes but is not completely resolved. Is now been ongoing for about 1 hour. No fevers cough or increasing wheezing recently does have a history of COPD. States he has not been wheezing at rest. No lower extremity swelling no history of DVT or PTE. No prolonged immobilizations recently. No hemoptysis. States he is unsure when his last heart cath was but believes its been within the last year also is unsure when his last echo was. Related Data Home Medications Medication Instructions Recorded Confirmed lamotrigine 150 mg tablet 200 mg PO BID bipolar 09/27/18 09/02/22 vilazodone 40 mg tablet 40 mg PO DAILY sleep 12/06/19 09/02/22 potassium chloride 10 mEq 10 meq PO DAILY Supplement 07/23/20 09/02/22 tablet,extended release quetiapine 200 mg tablet (Seroquel) 450 mg PO QDAY Insomnia 07/22/21 09/02/22 aspirin 81 mg tablet,delayed 81 mg PO DAILY Blood thinner 05/23/22 09/02/22 release (Adult Aspirin Regimen) furosemide 40 mg tablet 40 mg PO DAILY FLUID 05/23/22 09/02/22 losartan 100 mg t
[2022-09-02 12:42] LABS: Chloride 103 mmol/L (98-107); Potassium 4.3 mmoL/L (3.5-5.1); Sodium 138 mmol/L (136-145)
--- NOTE | 2022-09-02 12:43 | ECG_ITS ---
APPROVED REPORT Exam: Resting ECG HR:92 bpm ECG Measurements Heart Rate 92 AXES PA 169 P 65 QRSd 110 QRS 140 QT 368 T 77 QTc 418 Conclusion SINUS RHYTHM POSSIBLE RIGHT VENTRICULAR HYPERTROPHY [SOME/ALL OF: PROMINENT R IN V1, LATE TRANSITION, RAD, RIAZ, SSS] ABNORMAL ECG UNCONFIRMED REPORT Electronically signed by : Maged Guillen MD 09/02/2022 16:16:32
[2022-09-02 12:45] LABS: Alanine Aminotransferase 35 U/L (12-78); Albumin Level 4.3 g/dl (3.5-5.0); Albumin/Globulin Ratio 1.3 (1.1-1.8); Alkaline Phosphatase 59 U/L (38-126); Anion Gap 13.3 mEq/L (5-15); Aspartate Amino Transferase 46 U/L (17-59); Bilirubin,Total 0.4 mg/dl (0.2-1.3); Blood Urea Nitrogen 14 mg/dl (9-20); Calcium 9.3 mg/dl (8.4-10.2); Carbon Dioxide 26 mmol/L (22.0-30.0); Creatinine Clearance Estimated 114 mL/min (50-200); Estimated Glomerular Filt Rate 69 ml/min (>60); GFR (African American) 84 ML/MIN (>60); Globulin 3.4 g/dL (1.3-3.2); Glucose 82 mg/dl (74-100); Total Protein,Serum 7.7 g/dl (6.3-8.2)
--- NOTE | 2022-09-02 12:46 | PC.NURSE ---
2nd EKG complete at 1243; DR. Blanco requested another EKG at that time due to patient having worsening chest pain. 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
[2022-09-02 12:56] LABS: NT Pro Brain Natriuretic Pep. < 20.0 pg/mL (0-125)
[2022-09-02 12:58] LABS: Activated Partial Thrombo Time 31.9 seconds (22.8-30.6); Basophils % 0.5 % (0.1-2.0); Eosinophils # 0.1 K/mm3 (0.0-0.4); Eosinophils % 1.6 % (0.1-12.0); Hematocrit 47.3 % (42.0-52.0); Hemoglobin 14.9 g/dL (14.1-18.0); INR 1.01 (0.9-1.1); Lymphocytes # 1.9 K/mm3 (0.7-4.5); Lymphocytes % 24.1 % (10-50); Mean Corpuscular HGB Conc 31.6 g/dL (31.8-35.4); Mean Corpuscular Hemoglobin 28.2 pg (27.0-31.2); Mean Corpuscular Volume 89.4 fl (80-94); Mean Platelet Volume 8.5 fl (7.4-10.4); Monocytes # 0.4 K/mm3 (0.1-1.0); Monocytes % 4.9 % (1.7-9.3); Neutrophils # 5.3 K/mm3 (1.8-7.8); Neutrophils % 68.8 % (37.0-80.0); Platelet Count 127 K/mm3 (142-424); Prothrombin Time 10.9 seconds (10.1-12.5); Red Cell Distribution Width 13.4 % (11.5-17.5); White Blood Count 7.7 K/mm3 (4.8-10.8)
[2022-09-02 12:59] LABS: Troponin I < 0.01 ng/ml (0.00-0.034)
[2022-09-02 13:17] LABS: D-Dimer 0.51 ug/mL (0.0-0.5)
[2022-09-02 13:44] LABS: POC Glucose,Bedside 80 (70-110)
--- NOTE | 2022-09-02 14:35 | PC.NURSE ---
Rounded on patient and family; nothing needed at this time
--- NOTE | 2022-09-02 15:05 | PC.NURSE ---
Rounded on patient; no needs at this time. Call alas within reach
[2022-09-02 16:32] LABS: Troponin I < 0.01 ng/ml (0.00-0.034)
== END 2022-09-02 16:51 | disposition home or self-care (01) ==
PROVIDERS: Emergency Provider Student in an Organized Health Care Education/Training Program; PCP Family Medicine
DX: R07.9 Chest pain, unspecified (principal); Z79.82 Long term (current) use of aspirin; R06.02 Shortness of breath; I25.10 Atherosclerotic heart disease of native coronary artery without angina pectoris; J44.9 Chronic obstructive pulmonary disease, unspecified; I11.0 Hypertensive heart disease with heart failure; I50.22 Chronic systolic (congestive) heart failure; E78.5 Hyperlipidemia, unspecified; I42.8 Other cardiomyopathies; F17.210 Nicotine dependence, cigarettes, uncomplicated
CPT/HCPCS: 36415; 71045; 80053; 82962; 83880; 84484; 85025; 85378; 85610; 85730; 93005; 96374; 99285; J2405

== ENCOUNTER → 2022-09-05 14:29 | Outpatient (POV) | payer MEDICARE, SELFPAY ==
[2022-09-05 15:30] VITALS: BP 111/73; PULSE 88; RESP 20; BMI 33.7
--- NOTE | 2022-09-05 15:33 | EXP.PAIN.SOA ---
[facility] Pain Management SOAP Note Subjective:: Rigo Pierre is a pleasant 56-year-old male who presents today for medication refill and follow-up. We are currently treating the patient for degenerative disc disease of lumbar spine with lumbar radiculopathy symptoms. Today he rates his pain a 7 out of 10. Patient denies any new trauma or injury. Patient denies any change location or type of pain he experiences. He does state he continues to have low back pain with radiating symptoms into his legs. Patient does describe this as an aching, throbbing sensation that is worse with increased activity. He states the pain does interfere with his ability to perform activities of daily living such as cooking and cleaning. At our last visit we did discuss possibly doing lumbar epidural steroid injections and at that time he wanted to wait. Patient does state today that he is needs injections. Patient does have a [employer] spinal spinal cord stimulator in place and has recently been reprogrammed. He states that he has had much better improvement following this change in his device settings. Patient is currently managed with gabapentin 600 mg 4 times a day. Patient denies any side effects from these medications. His Ancelmo is [id number]. Its been reviewed and appropriate. Review of Systems: General: No recent weight changes, no fever, no sleep disturbances Respiratory: No cough, no shortness of air, no recurring pulmonary infections Cardiovascular/peripheral vascular: No chest pain, no palpitations, no edema, no shortness of breath Gastrointestinal: No new onset incontinence, normal bowel movements reported Genitourinary: No new onset incontinence Musculoskeletal: Low back pain, bilateral leg pain Psychiatric: [Normal mood/affect] Neurological: [Denies weakness in extremities], [denies balance issues] Objective:: Physical Exam: General: Alert and oriented x3, no acute distress, pleasant and cooperative Lungs: Respirations even and unlabored, symmetrical chest expansion Eyes: PERRL Musculoskeletal: Flexion and extension of lumbar [spine] somewhat guarded secondary to pain, [antalgic gait noted] Neurological: Speech clear, no gross sensory deficit Assessment:: Degenerative disc disease of lumbar spine with lumbar radiculopathy symptoms Plan:: Patient is experiencing significant pain in his low back with limited range of motion and radiating symptoms into his bilateral lower extremities. I have discussed with the patient that he may benefit from a lumbar epidural steroid injection. Risk and benefits were discussed with the patient and he would like to proceed forward with this plan of care. Patient is not on any blood thinners. I will refill the patient's gabapentin 600 mg 4 times a day and provide a 3-month supply of this medication. Patient will be scheduled for an LESI L4 through L5. Patient has been instructed to contact the clinic with any concerns before the next appointment. Dr. Anne has reviewed this note and agrees with this plan of care. This note was dictated using voice recognition software and make contain errors or omissions. [facility] Disclaimer: The information contained in this section may have been updated after the patient was seen, as this information can be updated by other users. Medical History CAD (coronary artery disease) Chronic hypoxemic respiratory failure COPD (chronic obstructive pulmonary disease) Dyspnea Dyspnea on exertion Edema Elevated left ventricular end-diastolic pressure (LVEDP) Gastroesophageal reflux disease HHD (hypertensive heart disease) HLD (hyperlipidemia) Nocturnal hypoxemia Non-ischemic cardiomyopathy NYHA class 3 acute on chronic systolic heart failure NYHA class 3 heart failure with reduced ejection fraction Other forms of angina pectoris Pulmonary emphysema Screening for lung cancer Sinus tachycardia Sleep apnea Smoking greater than 30 pack
== END | disposition home or self-care (01) ==
PROVIDERS: PCP Family Medicine; Visit Provider Nurse Practitioner Family
DX: M51.16 Intervertebral disc disorders with radiculopathy, lumbar region (principal)
CPT/HCPCS: 99212; G0463

== ENCOUNTER → 2022-09-06 12:49 | Outpatient (CLI) | payer MEDICARE, SELFPAY ==
[2022-09-06 13:20] VITALS: PULSE 103; PULSE 90
--- NOTE | 2022-09-06 14:20 | CT_ITS ---
FINAL REPORT CLINICAL HISTORY: lung cancer screening smoker, 1/2 pk per day x 42 yrs copd, cad family hx of lung cancer COMPARISON: August 2023 FINDINGS: Low-Dose Chest CT CTDI vol (mGy): 2.90 DLP (mGy-cm): 115.42 Axial images were obtained from the lung apex to the mid abdomen by computed tomography. Low-dose protocol was utilized. FINDINGS: CHEST: There is no axillary adenopathy. There is no hilar or mediastinal adenopathy. There are calcified right hilar lymph nodes. There is mild vascular calcification in the aortic arch. The heart is proper size. There is no pericardial or pleural effusion. Limited images of the upper abdomen are unremarkable. Lung window images demonstrate mild ground-glass opacity in the inferior right upper lobes be less evident. There is a stable small pneumatocele or bulla in the left lung base. There is no suspicious pulmonary nodule. IMPRESSION: Lung RADS category 1. Recommend 12 month follow-up low-dose chest CT. Reviewed, Interpreted and Dictated by Tereso Guillen MD Transcribed by Vadim Candelario Authenticated and [facility]
== END ==
PROVIDERS: PCP Family Medicine; Visit Provider Internal Medicine Pulmonary Disease
DX: Z87.891 Personal history of nicotine dependence (principal); Z12.2 Encounter for screening for malignant neoplasm of respiratory organs; R06.02 Shortness of breath
CPT/HCPCS: 71271; 94060; 94618; 94640

== ENCOUNTER 2022-09-13 09:10 | Day surgery (SDC) | payer MEDICARE, SELFPAY ==
[2022-09-13 09:22] VITALS: BP 128/71; PULSE 70; RESP 18; TEMP 36.4; O2SAT 94; BMI 33.0
[2022-09-13 09:33] VITALS: BP 105/66; PULSE 93; RESP 18; O2SAT 97
[2022-09-13 09:34] VITALS: BP 105/66; PULSE 93; RESP 18; O2SAT 97
[2022-09-13 09:38] VITALS: BP 117/77; PULSE 71; RESP 18; O2SAT 96
--- NOTE | 2022-09-13 09:38 | P.PCN_ITS ---
Procedure Date: 09/13/22 Time: 09:20 Anesthesiologist:: Grant Joyce CRNA Complications:: None Pre-procedure Diagnosis:: Degenerative disc lumbar spine multilevels. Lumbar radiculopathy. Lumbar postlaminectomy syndrome. Post-procedure Diagnosis:: Same. Indications for Procedure:: Patient is a very pleasant 56-year-old male that comes our clinic today for lumbar epidural steroid injection at the L4-5 level. Patient complains of low back pain as well as bilateral hip and leg radicular pain. Patient does have spinal cord stimulator which is functioning at this time. He rates his pain 7/10. Procedure Details:: Procedure: Lumbar epidural steroid injection under fluoroscopy Informed consent was obtained and the risks and benefits of the procedure were explained to the patient. The patient was taken to the procedure room and nonin vasive monitors placed, including noninvasive blood pressure cuff and pulse oximeter. The back was viewed using C-arm Fluoroscopy and prepped using Chloraprep as a cleansing solution and the L4-L5 interspace was palpated. Skin and subcutaneous tissues were anesthetized using lidocaine 1.5% and a 25-gauge needle. After this, an 18-gauge Touhy epidural needle was placed into the L4-L5 interspace and advanced using fluoroscopic guidance and loss of resistance to air until the epidural space was encountered. After confirmation of needle placement in the epidural space, with dye, a solution containing normal saline, 3 mL and Depo-Medrol 80 mg were incrementally injected into the lumbar epidural space. The patient tolerated the procedure well with no complications. The patient was observed in the Pain Clinic and then discharged home neurologically intact. Plan and Disposition:: Patient was discharged without incident.
== END 2022-09-13 09:38 | disposition home or self-care (01) ==
LOC: SC.PAINP 09:12
PROVIDERS: PCP Family Medicine; Visit Provider Nurse Practitioner Family
DX: M51.16 Intervertebral disc disorders with radiculopathy, lumbar region (principal); M96.1 Postlaminectomy syndrome, not elsewhere classified
CPT/HCPCS: 62323; J1040

== ENCOUNTER → 2022-09-28 10:47 | Outpatient (POV) | payer MEDICARE, SELFPAY ==
--- NOTE | 2022-09-28 11:09 | EXP.PAIN.SOA ---
[facility] Pain Management SOAP Note Subjective:: Patient is a pleasant 56-year-old male who presents today for follow-up of lumbar epidural steroid injection L4-L5 on 09/13/2022. We are currently treating the patient for degenerative disc disease of lumbar spine with lumbar radiculopathy symptoms, lumbar postlaminectomy syndrome. Today he rates his pain a 0 out of 10. Patient states he has had at least 80% improvement following this injection and feels like it is still continuing to provide additional relief. Patient does have a [employer] spinal cord stimulator in place that he states has been there for approximately 3 to 4 years however he does not feel like it is providing adequate improvement. Patient has been recently reprogrammed with no additional benefit. Patient is interested in possibly having this removed. Patient is also interested in seeing a orthospine doctor for possible surgical intervention. He is currently managed with gabapentin 600 mg 4 times a day. He denies any side effects from this medication. At our last visit he was given a 3-month supply of this medication and does not require any additional at this time. His Ancelmo is [id number]. Its been reviewed and appropriate. Review of Systems: General: No recent weight changes, no fever, no sleep disturbances Respiratory: No cough, no shortness of air, no recurring pulmonary infections Cardiovascular/peripheral vascular: No chest pain, no palpitations, no edema, no shortness of breath Gastrointestinal: No new onset incontinence, normal bowel movements reported Genitourinary: No new onset incontinence Musculoskeletal: Low back pain Psychiatric: [Normal mood/affect] Neurological: [Denies weakness in extremities], [denies balance issues] Objective:: Physical Exam: General: Alert and oriented x3, no acute distress, pleasant and cooperative Lungs: Respirations even and unlabored, symmetrical chest expansion Eyes: PERRL Musculoskeletal: Flexion and extension of lumbar [spine] somewhat guarded secondary to pain, [antalgic gait noted] Neurological: Speech clear, no gross sensory deficit Assessment:: Degenerative disc disease of lumbar spine with lumbar radiculopathy symptoms, lumbar postlaminectomy syndrome Plan:: Patient has had significant improvement of his low back pain following his lumbar epidural and does not require any additional injective therapy at this time. I have discussed with the patient that we can explant his spinal cord stimulator however prior to scheduling this I will refer him to neuro spine in [place] with Dr. Shon Hudson. Patient has not had any recent lumbar imaging. I will order x-ray at today's visit. Patient will return to clinic in 1 month for reevaluation of symptoms and plan of care. Patient has been instructed to contact the clinic with any concerns before the next appointment. Dr. Anne has reviewed this note and agrees with this plan of care. This note was dictated using voice recognition software and make contain errors or omissions. [facility] Disclaimer: The information contained in this section may have been updated after the patient was seen, as this information can be updated by other users. Medical History CAD (coronary artery disease) Chronic hypoxemic respiratory failure COPD (chronic obstructive pulmonary disease) Dyspnea Dyspnea on exertion Edema Elevated left ventricular end-diastolic pressure (LVEDP) Gastroesophageal reflux disease HHD (hypertensive heart disease) HLD (hyperlipidemia) Nocturnal hypoxemia Non-ischemic cardiomyopathy NYHA class 3 acute on chronic systolic heart failure NYHA class 3 heart failure with reduced ejection fraction Other forms of angina pectoris Pulmonary emphysema Screening for lung cancer Sinus tachycardia Sleep apnea Smoking greater than 30 pack years Tobacco abuse counseling Tobacco abuse disorder Surgical History (Reviewed 09/13/22 @ 10:53 by
[2022-09-28 11:25] VITALS: BP 114/78; PULSE 101; RESP 18; O2SAT 97; BMI 34.4
== END ==
PROVIDERS: PCP Family Medicine; Visit Provider Nurse Practitioner Family
DX: M51.16 Intervertebral disc disorders with radiculopathy, lumbar region (principal); M96.1 Postlaminectomy syndrome, not elsewhere classified
CPT/HCPCS: 99212; G0463

== ENCOUNTER → 2022-09-28 11:20 | Outpatient (CLI) | payer MEDICARE, SELFPAY | PROVIDERS: PCP Family Medicine; Visit Provider Internal Medicine Pulmonary Disease | DX: R06.09 Other forms of dyspnea (principal); G47.34 Idiopathic sleep related nonobstructive alveolar hypoventilation | CPT/HCPCS: 94762; 99212; G0463 ==

== ENCOUNTER → 2022-10-11 11:45 | Day surgery (SDC) | payer MEDICARE, SELFPAY ==
[2022-10-11 11:53] VITALS: BP 103/52; PULSE 82; RESP 18; TEMP 36.5; O2SAT 94; BMI 33.0
[2022-10-11 12:00] VITALS: RESP 20
--- NOTE | 2022-10-11 12:11 | EXP.PAIN.PRO ---
Procedure Date: 10/11/22 Time: 11:55 Anesthesiologist:: Grant Joyce CRNA Complications:: None Pre-procedure Diagnosis:: Degenerative disc lumbar spine multilevels. Lumbar radiculopathy Post-procedure Diagnosis:: Same. Indications for Procedure:: Patient is a very pleasant 56-year-old male that comes our clinic today for repeat lumbar epidural steroid injection at L4-5 level. Patient reports 80% improvement for 2 to 3 weeks with his initial lumbar epidural steroid injection at the same level. Patient describes low back pain as constant, dull, aching. Patient also complains of bilateral hip and leg radicular symptoms at times. He rates his pain 7/10 Procedure Details:: Procedure: Lumbar epidural steroid injection under fluoroscopy Informed consent was obtained and the risks and benefits of the procedure were explained to the patient. The patient was taken to the procedure room and noninvasive monitors placed, including noninvasive blood pressure cuff and pulse oximeter. The back was viewed using C-arm Fluoroscopy and prepped using Chloraprep as a cleansing solution and the L4-L5 interspace was palpated. Skin and subcutaneous tissues were anesthetized using lidocaine 1.5% and a 25-gauge needle. After this, an 18-gauge Touhy epidural needle was placed into the L4-L5 interspace and advanced using fluoroscopic guidance and loss of resistance to air until the epidural space was encountered. After confirmation of needle placement in the epidural space, with dye, a solution containing normal saline, 3 mL and Depo-Medrol 80 mg were incrementally injected into the lumbar epidural space. The patient tolerated the procedure well with no complications. The patient was observed in the Pain Clinic and then discharged home neurologically intact. Plan and Disposition:: Patient was discharged without incident.
== END | disposition home or self-care (01) ==
PROVIDERS: PCP Family Medicine; Visit Provider Nurse Anesthetist, Certified Registered
DX: M51.16 Intervertebral disc disorders with radiculopathy, lumbar region (principal)
CPT/HCPCS: 62323; J1040

== ENCOUNTER → 2022-10-26 12:44 | Outpatient (POV) | payer MEDICARE, SELFPAY ==
[2022-10-26 13:11] VITALS: BP 108/65; PULSE 89; RESP 20; BMI 33.5
--- NOTE | 2022-10-26 13:19 | EXP.PAIN.SOA ---
[facility] Pain Management SOAP Note Subjective:: Patient is a pleasant 56-year-old male who presents today for follow-up of lumbar epidural steroid injection L4-L5 on 10/11/2022. We are currently treating the patient for degenerative disc disease of lumbar spine with lumbar radiculopathy symptoms, lumbar postlaminectomy syndrome. Today he rates his pain a 8 out of 10. Patient denies any new trauma or injury. He denies any change in location or type of pain he experiences. He does state that he had minimal relief following this injection. He states he is at his baseline today and describes the pain as an aching, throbbing sensation that is worse with increased activity. He does state the pain goes from his low back all the way into both legs. He does state that Dr. Hudson in [place] did do a lumbar MRI and he is going to their office tomorrow for follow-up. He is currently managed With gabapentin 600 mg 4 times a day and was given a 3-month supply of this medication which should last up until November. His Ancelmo is [id number]. It has been reviewed and appropriate. Review of Systems: General: No recent weight changes, no fever, no sleep disturbances Respiratory: No cough, no shortness of air, no recurring pulmonary infections Cardiovascular/peripheral vascular: No chest pain, no palpitations, no edema, no shortness of breath Gastrointestinal: No new onset incontinence, normal bowel movements reported Genitourinary: No new onset incontinence Musculoskeletal: Low back pain, bilateral leg pain Psychiatric: [Normal mood/affect] Neurological: [Denies weakness in extremities], [denies balance issues] Objective:: Physical Exam: General: Alert and oriented x3, no acute distress, pleasant and cooperative Lungs: Respirations even and unlabored, symmetrical chest expansion Eyes: PERRL Musculoskeletal: Flexion and extension of lumbar [spine] somewhat guarded secondary to pain, [antalgic gait noted] Neurological: Speech clear, no gross sensory deficit Assessment:: Degenerative disc disease of lumbar spine with lumbar radiculopathy symptoms, lumbar postlaminectomy syndrome Plan:: Patient continues to experience significant pain in his low back and legs with limited range of motion. I have discussed with the patient that he may benefit from a repeat lumbar epidural steroid injection. Patient did previously have an epidural that lasted for approximately 1 month with 80% relief. Patient is scheduled to see Dr. Shon Hudson tomorrow and we will wait and follow-up after getting a copy of his lumbar imaging. Patient will return to clinic in 2 weeks for reevaluation of symptoms and plan of care. Patient has been instructed to contact the clinic with any concerns before the next appointment. Dr. Anne has reviewed this note and agrees with this plan of care. This note was dictated using voice recognition software and make contain errors or omissions. [facility] Disclaimer: The information contained in this section may have been updated after the patient was seen, as this information can be updated by other users. Medical History CAD (coronary artery disease) Chronic hypoxemic respiratory failure COPD (chronic obstructive pulmonary disease) Dyspnea Dyspnea on exertion Edema Elevated left ventricular end-diastolic pressure (LVEDP) Gastroesophageal reflux disease HHD (hypertensive heart disease) HLD (hyperlipidemia) Nocturnal hypoxemia Non-ischemic cardiomyopathy NYHA class 3 acute on chronic systolic heart failure NYHA class 3 heart failure with reduced ejection fraction Other forms of angina pectoris Pulmonary emphysema Screening for lung cancer Sinus tachycardia Sleep apnea Smoking greater than 30 pack years Tobacco abuse counseling Tobacco abuse disorder Surgical History History of arthroscopic knee surgery Hx of cervical spine surgery Status post inserti
== END ==
PROVIDERS: PCP Family Medicine; Visit Provider Nurse Practitioner Family
DX: M51.16 Intervertebral disc disorders with radiculopathy, lumbar region (principal); M96.1 Postlaminectomy syndrome, not elsewhere classified
CPT/HCPCS: 99212; G0463

== ENCOUNTER → 2022-11-09 11:09 | Outpatient (POV) | payer MEDICARE, SELFPAY ==
--- NOTE | 2022-11-09 11:52 | EXP.PAIN.SOA ---
[facility] Pain Management SOAP Note Subjective:: Patient is a pleasant 56-year-old male who presents today for follow-up. We are currently treating the patient for degenerative disc disease of lumbar spine with lumbar radiculopathy symptoms, lumbar postlaminectomy syndrome. Today he rates his pain a 9 out of 10. Patient denies any new trauma or injury. Patient has had previous lumbar epidurals at L4-L5 that have provided upwards of 80% relief however they have been hit or miss on how long the relief lasts. Patient does state he is back to his baseline today and he has been to see Dr. Shon Hudson at [facility] who is stating he has no surgical interventions that he believes would benefit the patient. Patient does have a spinal cord stimulator in place that he states that Dr. Hudson is planning on removing once he has cardiology clearance. Patient is currently managed with gabapentin 600 mg 4 times a day and was given a 3-month supply that should last until November. His Ancelmo is [id number]. Its been reviewed and appropriate. Review of Systems: General: No recent weight changes, no fever, no sleep disturbances Respiratory: No cough, no shortness of air, no recurring pulmonary infections Cardiovascular/peripheral vascular: No chest pain, no palpitations, no edema, no shortness of breath Gastrointestinal: No new onset incontinence, normal bowel movements reported Genitourinary: No new onset incontinence Musculoskeletal: Low back pain Psychiatric: [Normal mood/affect] Neurological: [Denies weakness in extremities], [denies balance issues] Objective:: Physical Exam: General: Alert and oriented x3, no acute distress, pleasant and cooperative Lungs: Respirations even and unlabored, symmetrical chest expansion Eyes: PERRL Musculoskeletal: Flexion and extension of lumbar [spine] somewhat guarded secondary to pain, [antalgic gait noted] Neurological: Speech clear, no gross sensory deficit [facility] Lumbar MRI without contrast 10/17/2022 L1-L2: Annular disc bulge, facet arthropathy and osteophytes. Mild left neuroforaminal narrowing. L2-L3: Annular bulge is present. No significant canal stenosis or neuroforaminal narrowing L3-4: Annular disc bulge with facet arthropathy. Small right foraminal disc protrusion. Mild bilateral neuroforaminal narrowing. L4-L5: Annular disc bulge and facet arthropathy. Posterior midline annular tear and small central disc protrusion. Mild central canal stenosis with AP diameter of the thecal sac of 8 mm. Mild bilateral neuroforaminal narrowing. L5-S1: Annular disc bulge, facet arthropathy and osteophytes. Posterior midline annular tear and disc protrusion. No significant canal stenosis or neuroforaminal narrowing Assessment:: Degenerative disc disease of lumbar spine with lumbar radiculopathy symptoms, lumbar postlaminectomy syndrome Plan:: Patient continues to experience significant pain in his low back and legs. I will order the patient a compounding cream and baclofen 10 mg 3 times daily and provide a 1 month supply of this medication. Patient will return to clinic in 1 month for reevaluation of symptoms and plan of care. Patient has been instructed to contact the clinic with any concerns before the next appointment. Dr. Anne has reviewed this note and agrees with this plan of care. This note was dictated using voice recognition software and make contain errors or omissions. [facility] Disclaimer: The information contained in this section may have been updated after the patient was seen, as this information can be updated by other users. Medical History CAD (coronary artery disease) Chronic hypoxemic respiratory failure COPD (chronic obstructive pulmonary disease) Dyspnea Dyspnea on exertion Edema Elevated left ventricular end-diastolic pressure (LVEDP) Gastroesophageal reflux disease HHD (hypertensive heart disease) HLD (hyperlipidemia) Nocturnal hypoxemia Non-ischemic card
[2022-11-09 12:48] VITALS: BP 128/70; PULSE 87; RESP 18; O2SAT 98; BMI 34.4
== END | disposition home or self-care (01) ==
PROVIDERS: PCP Family Medicine; Visit Provider Nurse Practitioner Family
DX: M51.16 Intervertebral disc disorders with radiculopathy, lumbar region (principal); M96.1 Postlaminectomy syndrome, not elsewhere classified
CPT/HCPCS: 99212; G0463

== ENCOUNTER → 2022-12-08 10:08 | Outpatient (POV) | payer MEDICARE, SELFPAY ==
--- NOTE | 2022-12-08 10:43 | EXP.PAIN.SOA ---
[facility] Pain Management SOAP Note Subjective:: Patient is a pleasant 57-year-old male who presents today for 1 month follow-up. We are currently treating the patient for degenerative disc disease of lumbar spine with lumbar radiculopathy symptoms, lumbar postlaminectomy syndrome. Today he rates his pain an 8 out of 10. Patient denies any new trauma or injury. He does state that he has been having some shoulder pain as well. Patient states that he was working around the house with his hands above his head when he felt a tearing sensation and burning going down his right arm. Patient does state that he may have torn his rotator cuff. He denies any imaging. Since our last visit the patient has had his spinal cord stimulator removed by Shon Hudson. He states he recently just had his jamal taken out and has his next follow-up in 2 weeks. Patient denies any additional issues following this procedure. He is currently managed with gabapentin 600 mg 4 times a day and baclofen was given at his last visit 3 times a day 10 mg. Patient denies getting this medication. He states that he does use the [facility] order [facility]. His Ancelmo has been reviewed and is appropriate. Review of Systems: General: No recent weight changes, no fever, no sleep disturbances Respiratory: No cough, no shortness of air, no recurring pulmonary infections Cardiovascular/peripheral vascular: No chest pain, no palpitations, no edema, no shortness of breath Gastrointestinal: No new onset incontinence, normal bowel movements reported Genitourinary: No new onset incontinence Musculoskeletal: Low back pain, right shoulder pain Psychiatric: [Normal mood/affect] Neurological: [Denies weakness in extremities], [denies balance issues] Objective:: Physical Exam: General: Alert and oriented x3, no acute distress, pleasant and cooperative Lungs: Respirations even and unlabored, symmetrical chest expansion Eyes: PERRL Musculoskeletal: Flexion and extension of lumbar [spine] somewhat guarded secondary to pain, [antalgic gait noted] Neurological: Speech clear, no gross sensory deficit Assessment:: Degenerative disc disease of lumbar spine with lumbar radiculopathy symptoms, lumbar postlaminectomy syndrome Plan:: Patient continues to have significant pain in his low back with radiating symptoms into his lower extremities as well as his right shoulder. I have counseled the patient that I can order imaging of his shoulder however at this time he is not interested. I have also counseled the patient that he may benefit from lumbar epidurals in the future as well as a possible pain pump trial. Patient states he is not interested in the pain pump trial. We will discuss future injections at a later date. I will send in a refill of his gabapentin 600 mg 4 times a day and provide a 3-month supply of this medication as well as send in the baclofen 10 mg 3 times a day and provide a 1 month supply of this medication. Patient will return to clinic in 1 month for reevaluation of symptoms and plan of care. Patient has been instructed to contact the clinic with any concerns before the next appointment. Dr. Anne has reviewed this note and agrees with this plan of care. This note was dictated using voice recognition software and make contain errors or omissions. [facility] Disclaimer: The information contained in this section may have been updated after the patient was seen, as this information can be updated by other users. Medical History CAD (coronary artery disease) Chronic hypoxemic respiratory failure COPD (chronic obstructive pulmonary disease) Dyspnea Dyspnea on exertion Edema Elevated left ventricular end-diastolic pressure (LVEDP) Gastroesophageal reflux disease HHD (hypertensive heart disease) HLD (hyperlipidemia) Nocturnal hypoxemia Non-ischemic cardiomyopathy NYHA class 3 acute on chronic systolic heart failure NYHA class 3 heart failure w
[2022-12-08 12:16] VITALS: BP 116/81; PULSE 87; RESP 18; O2SAT 96; BMI 33.5
== END | disposition home or self-care (01) ==
PROVIDERS: PCP Family Medicine; Visit Provider Nurse Practitioner Family
DX: M51.16 Intervertebral disc disorders with radiculopathy, lumbar region (principal); M96.1 Postlaminectomy syndrome, not elsewhere classified
CPT/HCPCS: 99212; G0463

== ENCOUNTER → 2023-01-05 11:43 | Outpatient (POV) | payer MEDICARE, SELFPAY ==
--- NOTE | 2023-01-05 12:18 | EXP.PAIN.SOA ---
[facility] Pain Management SOAP Note Subjective:: Patient is a pleasant 57-year-old male who presents today for follow-up. We are currently treating the patient for degenerative disc disease of lumbar spine with lumbar radiculopathy symptoms, lumbar postlaminectomy syndrome. Today he rates his pain a 7 out of 10. Patient denies any new trauma or injury since our last visit. He does state that the baclofen has continued to provide significant improvement. Patient is currently managed with gabapentin 600 mg 4 times a day and baclofen 10 mg 3 times a day. He does state that he takes the baclofen 2 tablets in the morning and 1 at night and this does provide significant improvement. At her last visit he was given a 3-month supply of his gabapentin and does not need refills of this. His Ancelmo is [id number]. Its been reviewed and appropriate. Review of Systems: General: No recent weight changes, no fever, no sleep disturbances Respiratory: No cough, no shortness of air, no recurring pulmonary infections Cardiovascular/peripheral vascular: No chest pain, no palpitations, no edema, no shortness of breath Gastrointestinal: No new onset incontinence, normal bowel movements reported Genitourinary: No new onset incontinence Musculoskeletal: Low back pain Psychiatric: [Normal mood/affect] Neurological: [Denies weakness in extremities], [denies balance issues] Objective:: Physical Exam: General: Alert and oriented x3, no acute distress, pleasant and cooperative Lungs: Respirations even and unlabored, symmetrical chest expansion Eyes: PERRL Musculoskeletal: Flexion and extension of lumbar [spine] somewhat guarded secondary to pain, [antalgic gait noted] Neurological: Speech clear, no gross sensory deficit Assessment:: Degenerative disc disease of lumbar spine with lumbar radiculopathy symptoms, lumbar postlaminectomy syndrome Plan:: I will refill the patient's baclofen 10 mg 3 times a day and provide a 1 month supply of this medication. Patient will return to clinic in 2 months for reevaluation of symptoms and medication refill. Patient has been instructed to contact the clinic with any concerns before the next appointment. Dr. Anne has reviewed this note and agrees with this plan of care. This note was dictated using voice recognition software and make contain errors or omissions. [facility] Disclaimer: The information contained in this section may have been updated after the patient was seen, as this information can be updated by other users. Medical History CAD (coronary artery disease) Chronic hypoxemic respiratory failure COPD (chronic obstructive pulmonary disease) Dyspnea Dyspnea on exertion Edema Elevated left ventricular end-diastolic pressure (LVEDP) Gastroesophageal reflux disease HHD (hypertensive heart disease) HLD (hyperlipidemia) Nocturnal hypoxemia Non-ischemic cardiomyopathy NYHA class 3 acute on chronic systolic heart failure NYHA class 3 heart failure with reduced ejection fraction Other forms of angina pectoris Pulmonary emphysema Screening for lung cancer Sinus tachycardia Sleep apnea Smoking greater than 30 pack years Tobacco abuse counseling Tobacco abuse disorder Surgical History History of arthroscopic knee surgery Hx of cervical spine surgery Status post insertion of nerve stimulator Family History Other Family history non-contributory Social History Smoking Status: Current every day smoker tobacco type: cigarettes packs per day: 1 alcohol intake: never substance use type: denies use current occupational status: other Travel in the last 8 weeks: None household members: spouse housing: house lives independently: No marital status: education level: high school service: No omar
[2023-01-05 12:39] VITALS: BP 139/89; PULSE 79; RESP 18; O2SAT 98; BMI 33.7
== END | disposition home or self-care (01) ==
PROVIDERS: PCP Family Medicine; Visit Provider Nurse Practitioner Family
DX: M51.16 Intervertebral disc disorders with radiculopathy, lumbar region (principal); M96.1 Postlaminectomy syndrome, not elsewhere classified
CPT/HCPCS: 99212; G0463

== ENCOUNTER → 2023-01-30 07:37 | Outpatient (CLI) | payer MEDICARE, SELFPAY ==
--- NOTE | 2023-01-30 07:40 | US_ITS ---
FINAL REPORT CLINICAL HISTORY: H/O TOBACCO USE COMPARISON: None FINDINGS: Sonographic images were obtained of the abdominal aorta. The abdominal aorta measures up to 2.4 in greatest dimensions. The common iliac arteries are within normal limits. IMPRESSION: No evidence of aortic aneurysm. Reviewed, Interpreted and Dictated by Tereso Guillen MD Transcribed by Gladys Bai Authenticated and [facility]
== END ==
LOC: RAD 07:38
PROVIDERS: PCP Family Medicine; Visit Provider Physician Assistant
DX: Z72.0 Tobacco use (principal)
CPT/HCPCS: 76705

== ENCOUNTER → 2023-02-27 11:15 | Outpatient (POV) | payer MEDICARE, SELFPAY ==
--- OUTSIDE RECORDS SUMMARY | 2023-02-27 11:17 | XMS_ITS ---
Author Name Unknown Address [address] [place] [address] Phone Organization [facility] Address [address] [place] [address] Phone Care Team Providers Care Reduction Furnace Operator Name Role Phone Lexa Lebron Unavailable Unavailable Tristan TRINIDAD, Shon Ding Unavailable [phone] Noris Hallman APRN Primary Care Provider [phone] Problems Includes: Active, inactive, and resolved Problems All Visits Onset Date Resolved Date Provider Condition S tatus Pain in the Lumbar Spine 12/06/2019 Shon jacobo MD Active Plan of Treatment Findings Encounter Date Ordered weight loss diet NEW PATIENT with Artur Waite MD 09/30/2016 Pending Tests Order Diagnosis Results Due Ordering Dc jackson Radiology - MRI MRI Lumbar Spine Overweight 10/24/22 Xavier Melendez PA-C Instructions to patient Intervention and counseling on cessation of tobacco use Last Documented On 3 9:13AM ; [facility] Lose weight Last Documented On 3 9:10AM ; [facility], [facility] Lose weight
--- OUTSIDE RECORDS SUMMARY | 2023-02-27 11:18 | XMS_ITS | Clinical Summary ---
Author Name Unknown Address [address] [place] [address] Phone Organization [facility] , [facility] Address [address] [place] [address] Phone Care Team Providers Care Pearl Technician Name Role Phone Lexa Lebron Unavailable Unavailable Tristan TRINIDAD, Shon Ding Unavailable [phone] Noris Hallman APRN Primary Care Provider [phone] Reason for Visit and Chief Complaint [Patient Encounter] Problems Includes: Problems addressed during this encounter and other active Problems All Visits Onset Date Resolved Date Provider Condition S tatus Pain in the Lumbar Spine 12/06/2019 Shon jacobo MD Active Plan of Treatment No Plan of Treatment Recorded Assessments Includes: Assessments from this encounter No Assessments Recorded Medical Equipment - Implanted Devices Includes: Current Devices No Medical Equipment Recorded Medications Includes: Medications discussed during this encounter and other current Medications New / Renewed during this visit Shon Hudson MD on 11/22/2022 Percocet 5-325 MG Oral Tablet Provider: Shon Hudson MD 15 day supply: 50 tablet, 0 refills Diagnosis: 1 po q 4h prn pain Pharmacy: [facility]/pharmacy #[id number] - [address] [facility], [id number] - [place]
--- OUTSIDE RECORDS SUMMARY | 2023-02-27 11:18 | XMS_ITS ---
Care Plan - [facility], [facility] Created on: February 27, 2023 Milton Bassett : 1965 Sex: Male Author Name Unknown Address [address] [place] [address] Phone Organization [facility] , [facility] Address [address] [place] [address] Phone Care Team Providers Care Aerial Lineman Name Role Phone Lexa Lebron Unavailable Unavailable Tristan TRINIDAD, Shon Ding Unavailable [phone] Noris Hallman APRN Primary Care Provider [phone]
--- OUTSIDE RECORDS SUMMARY | 2023-02-27 11:18 | XMS_ITS | Clinical Summary ---
Author Name Unknown Address [address] [place] [address] Phone Organization [facility] Address [address] [place] [address] Phone Care Team Providers Care Pigment Weigher Name Role Phone BernardinoLexa Unavailable Unavailable Tristan TRINIDAD, Shon Ding Unavailable [...] during this encounter and other current Medications Current Medications (continue as prescribed) Aspirin Adult Low Dose 81 MG Oral Tablet Delayed Relea se 12/07/2022 Provider: Diagnosis: Losartan Potassium 100 MG Oral Tablet 12/05/2022 Pro vider: Diagnosis:
--- OUTSIDE RECORDS SUMMARY | 2023-02-27 11:18 | XMS_ITS | Clinical Summary ---
Author Name Unknown Address [address] [place] [address] Phone Organization [facility] , [facility] Address [address] [place] [address] Phone Care Team Providers Care Shade Bander Name Role Phone Lexa Lebron Unavailable Unavailable Tristan TRINIDAD, Shon Ding Unavailable [phone] Noris Hallman APRN Primary Care Provider [phone] Reason for Visit and Chief Complaint The Chief Complaint is: SCS Removal POV Problems Includes: Problems addressed during this encounter and other active Problems All Visits Onset Date Resolved Date Provider Condition S tatus Pain in the Lumbar Spine 12/06/2019 Shon jacobo MD Active Plan of Treatment Fall Risk Assessment: This patient has been identified as a fall risk. Balance/gait along with postural blood pressure, vision and home fall hazards have been assessed. Medications have been reviewed, and recommendations made with regard to contributing factors for future falls. Plan of care: Consideration of vitamin D supplementation along with balance and strength training with consideration for formal physical therapy has been discussed with the patient. - Last Documented On 12/30/2022 9:32AM ; [facility] Instructions to patient Intervention and counseling on cessation of tobacco use Last Documented On 9:13AM ; [facility] Lose weight
--- OUTSIDE RECORDS SUMMARY | 2023-02-27 11:18 | XMS_ITS | Clinical Summary ---
Author Name Unknown Address [address] [place] [address] Phone Organization [facility] , [facility] Address [address] [place] [address] Phone Care Team Providers Care Guidance Consultant Name Role Phone Lexa Lebron Unavailable Unavailable Tristan TRINIDAD, Shon Ding Unavailable [phone] Noris Hallman APRN Primary Care Provider [phone] Reason for Visit and Chief Complaint [facility] Problems Includes: Problems addressed during this encounter [...]
--- NOTE | 2023-02-27 11:58 | EXP.PAIN.SOA ---
[facility] Pain Management SOAP Note Subjective:: Patient is a pleasant 57-year-old male who presents today for follow-up and medication refill. We are currently treating the patient for degenerative disc disease of lumbar spine with lumbar radiculopathy symptoms, lumbar postlaminectomy syndrome. Today he rates his pain a 7 out of 10. Patient denies any new trauma or injury. He states he continues to have low back pain that is constant and worse with increased activity. Patient states he has talked to Dr. Hudson who was recommending a possible lumbar ablation. Patient states that he feels like at this point it is just something he has to deal with and is unsure if he would would like to proceed forward with this option. Patient is currently managed with gabapentin 600 mg 4 times a day and baclofen 10 mg 3 times a day. He denies any side effects from this medication. He states he does not feel like the baclofen does help as much as it did initially. Patient was given compounding cream however states that he did not notice any additional change. Patient is also prescribed lorazepam from an outside provider. His Ancelmo has been reviewed and is appropriate. Review of Systems: General: No recent weight changes, no fever, no sleep disturbances Respiratory: No cough, no shortness of air, no recurring pulmonary infections Cardiovascular/peripheral vascular: No chest pain, no palpitations, no edema, no shortness of breath Gastrointestinal: No new onset incontinence, normal bowel movements reported Genitourinary: No new onset incontinence Musculoskeletal: Low back pain Psychiatric: [Normal mood/affect] Neurological: [Denies weakness in extremities], [denies balance issues] Objective:: Physical Exam: General: Alert and oriented x3, no acute distress, pleasant and cooperative Lungs: Respirations even and unlabored, symmetrical chest expansion Eyes: PERRL Musculoskeletal: Flexion and extension of lumbar [spine] somewhat guarded secondary to pain, [antalgic gait noted] Neurological: Speech clear, no gross sensory deficit Assessment:: Degenerative disc disease of lumbar spine with lumbar radiculopathy symptoms, lumbar postlaminectomy syndrome Plan:: Patient continues to experience significant pain in his low back with limited range of motion. I have discussed with the patient the risk and benefits of the lumbar medial branch block and lumbar ablations however at this time the patient would like to wait. I have also discussed with the patient in future he may be a beneficial candidate for an intrathecal pain pump trial however he states he knew a friend who did not get significant relief and states that Dr. Hudson was not recommending this as an option for him. Patient will be refilled on his gabapentin 600 mg 4 times a day and a 14-day supply of methocarbamol 750 mg twice daily will be sent in. I have counseled the patient not to take the baclofen while taking this medication. Patient will return to clinic in 1 month for reevaluation of symptoms and plan of care. Patient has been instructed to contact the clinic with any concerns before the next appointment. Dr. Anne has reviewed this note and agrees with this plan of care. This note was dictated using voice recognition software and make contain errors or omissions. [facility] Disclaimer: The information contained in this section may have been updated after the patient was seen, as this information can be updated by other users. Medical History CAD (coronary artery disease) Chronic hypoxemic respiratory failure COPD (chronic obstructive pulmonary disease) Dyspnea Dyspnea on exertion Edema Elevated left ventricular end-diastolic pressure (LVEDP) Gastroesophageal reflux disease HHD (hypertensive heart disease) HLD (hyperlipidemia) Nocturnal hypoxemia Non-ischemic cardiomyopathy NYHA class 3 acute on chronic systolic heart failure NYHA class 3 heart failure with red
[2023-02-27 12:20] VITALS: BP 138/75; PULSE 98; RESP 18; O2SAT 96; BMI 34.8
== END | disposition home or self-care (01) ==
PROVIDERS: PCP Family Medicine; Visit Provider Nurse Practitioner Family
DX: M51.16 Intervertebral disc disorders with radiculopathy, lumbar region (principal); M96.1 Postlaminectomy syndrome, not elsewhere classified
CPT/HCPCS: 99212; G0463

== ENCOUNTER 2023-05-29 09:29 | Outpatient (POV) | payer MEDICARE, SELFPAY ==
[2023-05-29 09:44] VITALS: BP 140/92; PULSE 108; RESP 18; BMI 38.0
--- NOTE | 2023-05-29 09:52 | A.OFFVIS_ITS ---
[facility] Pain Management SOAP Note Subjective:: Patient is a pleasant 57-year-old male who presents today for medication refill. He rates his pain today a 7 out of 10. Patient denies any new trauma or injury. He states he is doing well with his gabapentin 600 mg 4 times a day and methocarbamol 750 mg twice a day. Patient denies any side effects. He is requesting refills. His Ancelmo has been reviewed and is appropriate. Review of Systems: General: No recent weight changes, no fever, no sleep disturbances Respiratory: No cough, no shortness of air, no recurring pulmonary infections Cardiovascular/peripheral vascular: No chest pain, no palpitations, no edema, no shortness of breath Gastrointestinal: No new onset incontinence, normal bowel movements reported Genitourinary: No new onset incontinence Musculoskeletal: Low back pain Psychiatric: [Normal mood/affect] Neurological: [Denies weakness in extremities], [denies balance issues] Objective:: Physical Exam: General: Alert and oriented x3, no acute distress, pleasant and cooperative Lungs: Respirations even and unlabored, symmetrical chest expansion Eyes: PERRL Musculoskeletal: Flexion and extension of lumbar [spine] somewhat guarded secondary to pain, [antalgic gait noted] Neurological: Speech clear, no gross sensory deficit Assessment:: Degenerative disc disease of lumbar spine with lumbar radiculopathy symptoms, lumbar postlaminectomy syndrome Plan:: I will refill the patient's gabapentin 600 mg 4 times a day and methocarbamol 750 mg up to 3 times per day and provide a 2-month supply of these medications. Patient will return to clinic in 2 months for reevaluation of symptoms and plan of care. Patient has been instructed to contact the clinic with any concerns before the next appointment. Dr. Anne has reviewed this note and agrees with this plan of care. This note was dictated using voice recognition software and make contain errors or omissions. [facility] Disclaimer: The information contained in this section may have been updated after the patient was seen, as this information can be updated by other users. Medical History CAD (coronary artery disease) Chronic hypoxemic respiratory failure COPD (chronic obstructive pulmonary disease) Dyspnea Dyspnea on exertion Edema Elevated left ventricular end-diastolic pressure (LVEDP) Gastroesophageal reflux disease HHD (hypertensive heart disease) HLD (hyperlipidemia) Nocturnal hypoxemia Non-ischemic cardiomyopathy NYHA class 3 acute on chronic systolic heart failure NYHA class 3 heart failure with reduced ejection fraction Other forms of angina pectoris Pulmonary emphysema Screening for lung cancer Sinus tachycardia Sleep apnea Smoking greater than 30 pack years Tobacco abuse counseling Tobacco abuse disorder Surgical History History of arthroscopic knee surgery Hx of cervical spine surgery Status post insertion of nerve stimulator Family History Other Family history non-contributory Social History Smoking Status: Current every day smoker tobacco type: cigarettes packs per day: 1 alcohol intake: never substance use type: denies use current occupational status: retired Travel in the last 8 weeks: None household members: spouse housing: house lives independently: No marital status: education level: high school service: No care home: No current occupational exposures/hazards: No caffeine: Yes special deneen needs: No agree to transfusion: No do you feel safe at home: Yes victim of physical abuse: No victim of emotional abuse: No victim of sexual abuse: No would you like helpful sources: No
== END 2023-05-29 23:59 | disposition home or self-care (01) ==
PROVIDERS: PCP Family Medicine; Visit Provider Nurse Practitioner Family
DX: M51.16 Intervertebral disc disorders with radiculopathy, lumbar region (principal); M96.1 Postlaminectomy syndrome, not elsewhere classified
CPT/HCPCS: 99212; G0463

== ENCOUNTER 2023-05-31 11:28 | Outpatient (CLI) | payer MEDICARE, SELFPAY ==
--- NOTE | 2023-05-31 11:48 | XR_ITS ---
FINAL REPORT CLINICAL HISTORY: BRONCHITIS COMPARISON: 09/02/2022 FINDINGS: Two views of the chest were obtained. The heart size and pulmonary vascularity are within normal limits. The mediastinum is normal. Mild bibasilar opacities likely represent atelectasis or pneumonia. There is no pneumothorax. The bony thorax is intact. There is postoperative change of the lower cervical spine. IMPRESSION: Mild bibasilar opacities, likely atelectasis or pneumonia. Reviewed, Interpreted and Dictated by Aneudy Musa III, MD Transcribed by Cindy Oscar Authenticated and [facility]
== END 2023-05-31 23:59 ==
LOC: RAD 11:29
PROVIDERS: PCP Physician Assistant; Visit Provider Physician Assistant
DX: J40 Bronchitis, not specified as acute or chronic (principal)
CPT/HCPCS: 71046

== ENCOUNTER 2023-06-23 14:20 | Outpatient (CLI) | payer MEDICARE, SELFPAY ==
--- NOTE | 2023-06-23 14:23 | XR_ITS ---
FINAL REPORT CLINICAL HISTORY: PNEUMONIA OF BOTH LOWER LOBES COMPARISON: 05/31/2023 FINDINGS: TWO-VIEW CHEST There is cardiomegaly. The mediastinum is normal. There are persistent mild bibasilar opacities, may represent atelectasis or pneumonia. There are postoperative changes in the cervicothoracic spine. There is no pneumothorax. IMPRESSION: Persistent bibasilar opacities, may represent atelectasis or pneumonia. Reviewed, Interpreted and Dictated by Aneudy Musa III, MD Transcribed by Osiris Haque Authenticated and [facility]
== END 2023-06-23 23:59 ==
LOC: RAD 14:21
PROVIDERS: PCP Family Medicine; Visit Provider Physician Assistant
DX: J18.9 Pneumonia, unspecified organism (principal)
CPT/HCPCS: 71046

== ENCOUNTER 2023-06-30 11:26 | Outpatient (CLI) | payer MEDICARE, SELFPAY ==
[2023-06-30 12:41] LABS: Blood Urea Nitrogen 18 mg/dl (9-20); Estimated Glomerular Filt Rate 48 ml/min (>60); GFR (African American) 59 ML/MIN (>60)
== END 2023-06-30 23:59 ==
LOC: LAB 11:27
PROVIDERS: PCP Physician Assistant; Visit Provider Physician Assistant
DX: Z01.812 Encounter for preprocedural laboratory examination (principal)
CPT/HCPCS: 36415; 82565; 84520

== ENCOUNTER 2023-07-03 13:56 | Outpatient (CLI) | payer MEDICARE, SELFPAY ==
--- NOTE | 2023-07-03 14:01 | CT_ITS ---
FINAL REPORT TECHNIQUE: Routine axial images were obtained from the lung apices to below the diaphragm following IV contrast administration. Individualized dose reduction techniques using automated exposure control or adjustment of the mA and/or kV according to the patient size were employed. CLINICAL HISTORY: ABNORMAL CXR COMPARISON: Prior LDCT 09/06/2022 FINDINGS: No acute lung disease is present. There are minimal ground glass opacities in the lung bases, that may represent very minimal dependent edema. No pleural or pericardial effusion is seen. No adenopathy or mass lesion is present. Cervical fusion hardware is noted in the anterior cervical spine. IMPRESSION: Minimal ground glass opacities in the lung bases that may represent very minimal dependent edema. Otherwise unremarkable CT of the chest. Reviewed, Interpreted and Dictated by Tereso Guillen MD Transcribed by Gladys Bai Authenticated and [facility]
[2023-07-03] MEDS: IOPAMIDOL-370 (76%);100ML BOTTLE 75 ML IV (14:20)
[2023-07-03] MEDS: SODIUM CHLORIDE 0.9% 10ML SYR (RAD ONLY) 10 ML IV (14:20)
== END 2023-07-03 23:59 | disposition home or self-care (01) ==
LOC: RAD 13:56
PROVIDERS: PCP Family Medicine; Visit Provider Physician Assistant
DX: R93.89 Abnormal findings on diagnostic imaging of other specified body structures (principal)
CPT/HCPCS: 71260; Q9967

== ENCOUNTER 2023-07-27 08:57 | Outpatient (POV) | payer MEDICARE, SELFPAY ==
--- NOTE | 2023-07-27 09:00 | EXP.PAIN.SOA ---
[facility] Pain Management SOAP Note Subjective:: Patient is a pleasant 57-year-old male who presents today for medication refill and 1 month follow-up. He rates his pain today a 7 out of 10. Patient denies any new trauma or injury. He does state that the rain has really affected his overall back and leg pain. He states that he has been constantly using a heating pad and lying in the bed due to the worsening pain. He does describe it as an aching, throbbing sensation with numbness and tingling into his legs. He does state the pain interferes with his ability to perform activities of daily living such as cooking and cleaning. Patient has had epidurals in the past with average 50 to 80% relief lasting approximately a month or so. When he has had these in the past he did feel much more functional with decreased pain overall. He does state today that he is interested in repeating this injection. He is currently managed with gabapentin 600 mg 4 times a day and methocarbamol 750 mg twice a day. He states these medications still continue to help his overall pain symptoms. He denies any side effects. His Ancelmo has been reviewed and is appropriate. Review of Systems: General: No recent weight changes, no fever, no sleep disturbances Respiratory: No cough, no shortness of air, no recurring pulmonary infections Cardiovascular/peripheral vascular: No chest pain, no palpitations, no edema, no shortness of breath Gastrointestinal: No new onset incontinence, normal bowel movements reported Genitourinary: No new onset incontinence Musculoskeletal: Low back pain, bilateral leg pain Psychiatric: [Normal mood/affect] Neurological: [Denies weakness in extremities], [denies balance issues] Objective:: Physical Exam: General: Alert and oriented x3, no acute distress, pleasant and cooperative Lungs: Respirations even and unlabored, symmetrical chest expansion Eyes: PERRL Musculoskeletal: Flexion and extension of lumbar [spine] somewhat guarded secondary to pain, [antalgic gait noted] Neurological: Speech clear, no gross sensory deficit Assessment:: Degenerative disc disease of lumbar spine with lumbar radiculopathy symptoms Plan:: Patient is doing well with his current medication. I will refill his gabapentin and methocarbamol provide a 3-month supply of this medication. Patient is experiencing worse pain however in his low back and legs with limited range of motion. I have discussed with the patient that he may benefit from a repeat lumbar epidural steroid injection. Risk and benefits were discussed with patient and he would like to proceed forward with this plan of care. Patient has tried and failed conservative therapies and has continued to do at home stretching and exercise in between injections with minimal relief. Patient has previously had lumbar epidurals that provide upwards of 50 to 80% relief and did provide more overall improvement to his function with decreased pain. We will schedule the patient for an LESI L4-L5 under fluoroscopy. Patient has been instructed to contact the clinic with any concerns before the next appointment. Dr. Anne has reviewed this note and agrees with this plan of care. This note was dictated using voice recognition software and make contain errors or omissions. [facility] Disclaimer: The information contained in this section may have been updated after the patient was seen, as this information can be updated by other users. Medical History CAD (coronary artery disease) Chronic hypoxemic respiratory failure COPD (chronic obstructive pulmonary disease) Dyspnea Dyspnea on exertion Edema Elevated left ventricular end-diastolic pressure (LVEDP) Gastroesophageal reflux disease HHD (hypertensive heart disease) HLD (hyperlipidemia) Nocturnal hypoxemia Non-ischemic cardiomyopathy NYHA class 3 acute on chronic systolic heart failure NYHA class 3 heart failure with reduced ejection fraction Other forms of angina pectoris Pulmonary emphysema Screening for lung cancer Sinus tachycardia Sleep apnea Smoking greater than 30 pack years Tobacco abuse counseling Tobacco abuse disorder Surgical History History of arthroscopic knee surgery Hx of cervical spine surgery Status post insertion of nerve stimulator Family History Other Family history non-contributory Social History Smoking Status: Current every day smoker tobacco type: cigarettes packs per day: 1 alcohol intake: never substance use type: denies use current occupational status: other Travel in the last 8 weeks: None household members: spouse housing: house lives independently: No marital status: education level: high school service: No skilled nursing: No current occupational exposures/hazards: No caffeine: Yes special deneen needs: No agree to transfusion: No do you feel safe at home: Yes victim of physical abuse: No victim of emotional abuse: No victim of sexual abuse: No would you like helpful sources: No
[2023-07-27 09:03] VITALS: BP 141/85; PULSE 84; RESP 18; O2SAT 92; BMI 33.7
== END 2023-07-27 23:59 | disposition home or self-care (01) ==
PROVIDERS: PCP Physician Assistant; Visit Provider Nurse Practitioner Family
DX: M51.16 Intervertebral disc disorders with radiculopathy, lumbar region (principal)
CPT/HCPCS: 99212; G0463

== ENCOUNTER 2023-12-06 11:09 | Outpatient (POV) | payer MEDICARE, SELFPAY ==
[2023-12-06 11:52] VITALS: BP 107/73; PULSE 108; RESP 16; O2SAT 93; BMI 35.9
--- NOTE | 2023-12-06 11:52 | EXP.PAIN.SOA ---
[facility] Disclaimer: The information contained in this section may have been updated after the patient was seen, as this information can be updated by other users. Medical History Sleep apnea Nocturnal hypoxemia Chronic hypoxemic respiratory failure COPD (chronic obstructive pulmonary disease) Screening for lung cancer Pulmonary emphysema Smoking greater than 30 pack years Tobacco abuse disorder Dyspnea on exertion Tobacco abuse counseling Elevated left ventricular end-diastolic pressure (LVEDP) Sinus tachycardia Gastroesophageal reflux disease Dyspnea Edema HLD (hyperlipidemia) HHD (hypertensive heart disease) Non-ischemic cardiomyopathy CAD (coronary artery disease) NYHA class 3 heart failure with reduced ejection fraction NYHA class 3 acute on chronic systolic heart failure Other forms of angina pectoris Surgical History Status post insertion of nerve stimulator Hx of cervical spine surgery History of arthroscopic knee surgery Family History Other Family history non-contributory Social History Smoking Status: Current every day smoker tobacco type: cigarettes packs per day: 1 alcohol intake: never substance use type: denies use current occupational status: other Travel in the last 8 weeks: None household members: spouse housing: house lives independently: No marital status: education level: high school service: No residential: No current occupational exposures/hazards: No caffeine: Yes special deneen needs: No agree to transfusion: No do you feel safe at home: Yes victim of physical abuse: No victim of emotional abuse: No victim of sexual abuse: No would you like helpful sources: No PM Subjective & Objective Subjective Subjective:: Patient is a pleasant 58-year-old male who presents today for follow-up and medication refill. Today he rates his pain a 7 out of 10. Patient does state from her last visit that he ended up stepping into a hole in the yard and caused aggravating symptoms to his low back and legs. Patient does state he has more prominent symptoms along the right side. He states that he does have numbness and tingling. He does state currently the pain is interfering with his ability perform activities of daily living such as cooking and cleaning. Patient was previously scheduled for lumbar epidural however he had to cancel the last injection and now does state that he would like to get this scheduled to soon as possible. Patient does on average get at least 50 to 80% relief with these in the past and his last 1 lasted approximately 2 months. Patient has tried and failed conservative therapy including continued at home stretching exercise for longer than 12 weeks. Patient is managed with gabapentin 600 mg 4 times a day and methocarbamol 750 mg twice a day. He denies any side effects from this medication. He is requesting if we can change the gabapentin to 800 mg 3 times a day so it is easier that he does not have to remember the fourth tablet. His Ancelmo has been reviewed and is appropriate. Review of Systems: General: No recent weight changes, no fever, no sleep disturbances Respiratory: No cough, no shortness of air, no recurring pulmonary infections Cardiovascular/peripheral vascular: No chest pain, no palpitations, no edema, no shortness of breath Gastrointestinal: No new onset incontinence, normal bowel movements reported Genitourinary: No new onset incontinence Musculoskeletal: Low back pain, leg pain Psychiatric: [Normal mood/affect] Neurological: [Denies weakness in extremities], [denies balance issues] Pain at rest (0-10 scale): 7 Objective Objective:: Physical Exam: General: Alert and oriented x3, no acute distress, pleasant and cooperative Lungs: Respirations even and unlabored, symmetrical chest expansion Eyes: PERRL Musculoskeletal: Flexion and extension of lumbar [spine] somewhat guarded secondary to pain, [antalgic gait noted] Neurological: Speech clear, no gross sensory deficit Has patient had previous pain injection?: No Conservative treatment options previously tried: Home exercise plan Length of treatment: Longer than 12 weeks Meds Home Medications and Allergies Home Medications ?Medication ?Instructions ?Recorded ?Confirmed ?Type potassium chloride 10 mEq 10 meq PO DAILY Supplement 07/23/20 10/05/23 History tablet,extended release quetiapine 200 mg tablet (Seroquel) 450 mg PO QDAY Insomnia 07/22/21 10/05/23 History omeprazole 40 mg capsule,delayed 40 mg PO DAILY GERD #30 caps 01/28/22 10/05/23 Rx release nitroglycerin 0.4 mg sublingual 0.4 mg sublingual Q5M PRN chest 05/20/22 10/05/23 Rx tablet (Nitrostat) pain #20 tabs aspirin 81 mg tablet,delayed 81 mg PO DAILY Blood thinner 05/23/22 10/05/23 History release (Adult Aspirin Regimen) furosemide 40 mg tablet 20 mg PO DAILY FLUID 09/05/22 10/05/23 History insulin degludec 200 unit/mL (3 10 unit SQ DAILY . 09/05/22 10/05/23 History mL) subcutaneous pen (Tresiba FlexTouch U-200 insulin) ipratropium 0.5 mg-albuterol 3 mg 3 ml inhalation QID PRN shortness 09/13/22 10/05/23 Rx (2.5 mg base)/3 mL nebulization of breath or wheezing 90 days #270 soln mL tiotropium 2.5 mcg-olodaterol 2.5 2 puff inhalation DAILY Breathing 09/28/22 10/05/23 History mcg/actuation mist for inhalation Problems (Stiolto Respimat) metoprolol succinate 50 mg See Rx Instructions .Route 03/29/23 10/05/23 Rx tablet,extended release 24 hr .COMPLEX #90 tabs losartan 100 mg tablet 100 mg PO DAILY BLOOD PRESSURE #90 05/01/23 10/05/23 Rx tabs rosuvastatin 20 mg tablet 20 mg PO DAILY Cholesterol #90 tabs 05/31/23 10/05/23 Rx gabapentin 600 mg tablet 600 mg PO QID Pain #360 tabs 07/27/23 10/05/23 Rx albuterol sulfate 90 mcg/actuation See Rx Instructions .Route 08/28/23 10/05/23 Rx aerosol inhaler .COMPLEX #1 ea glimepiride 4 mg tablet 4 mg PO DAILY 10/05/23 10/05/23 History lamotrigine 200 mg tablet 200 mg PO BID 10/05/23 10/05/23 History metformin 500 mg tablet 1,000 mg PO BID 10/05/23 10/05/23 History vilazodone 40 mg tablet 40 mg PO DAILY 10/05/23 10/05/23 History methocarbamol 750 mg tablet 750 mg PO BID #180 tabs 10/23/23 Rx New Prescriptions to Start Prescriptions: Allergies Allergy/AdvReac Type Severity Reaction Status Date / Time hydrocodone [From VICODIN] Allergy Unknown itching Verified 10/05/23 09:32 Assessment and Plan *Assessment and plan (1) Degenerative disc disease: Status: Chronic Qualifiers: Spinal region: mid-cervical Mid-cervical spinal level: unspecified Qualified Code(s): M50.320 - Other cervical disc degeneration, mid-cervical region, unspecified level Category: Medical (2) Lumbar radiculopathy: Status: Acute Category: Medical Code(s): M54.16 - Radiculopathy, lumbar region Plan Patient is experiencing worsening pain throughout his low back and legs with numbness and tingling. I did discuss with the patient that he may benefit from a lumbar epidural steroid injection. Patient has previously gotten upwards of 50 to 80% relief lasting on average about 2 months. Patient would like to proceed forward with this plan of care. Patient is not on any blood thinners. We we will change his gabapentin to 800 mg 3 times a day and send in a 3-month supply of this medication along with his methocarbamol. Patient will be scheduled for an LESI L4-L5 under fluoroscopy. Patient has been instructed to contact the clinic with any concerns before the next appointment. Dr. Anne has reviewed this note and agrees with this plan of care. This note was dictated using voice recognition software and make contain errors or omissions. All injections are used with Lidocaine or Bupivacaine and Depo Medrol.
== END 2023-12-06 23:59 | disposition home or self-care (01) ==
PROVIDERS: PCP Family Medicine; Visit Provider Nurse Practitioner Family
DX: M50.320 Other cervical disc degeneration, mid-cervical region, unspecified level (principal); M54.16 Radiculopathy, lumbar region; Z96.82 Presence of neurostimulator; F17.210 Nicotine dependence, cigarettes, uncomplicated; Z73.89 Other problems related to life management difficulty; Z79.899 Other long term (current) drug therapy
CPT/HCPCS: 99212; G0463

== ENCOUNTER 2023-12-26 09:57 | Day surgery (SDC) | payer MEDICARE, SELFPAY ==
[2023-12-26 10:32] VITALS: BP 108/72; BP 127/64; PULSE 72; PULSE 92; RESP 14; RESP 16; TEMP 36.8; O2SAT 100; O2SAT 96; BMI 19.5
[2023-12-26] MEDS: methylPREDNISolone ACETATE 80MG/ML VIAL 80 MG (10:41)
[2023-12-26 10:42] VITALS: BP 120/64; PULSE 94; RESP 18; O2SAT 94
[2023-12-26 10:43] VITALS: BP 120/64; PULSE 94; RESP 18; O2SAT 94
--- NOTE | 2023-12-26 11:14 | EXP.PAIN.PRO ---
Procedure Date: 12/26/23 Time: 10:00 Anesthesiologist:: Grant Joyce CRNA Complications:: None Pre-procedure Diagnosis:: Degenerative disc lumbar spine multilevels. Lumbar radiculopathy. Post-procedure Diagnosis:: Same. Indications for Procedure:: Patient is a very pleasant 58-year-old male who comes our clinic today for lumbar epidural steroid injection. Patient reports minimal relief with same injection in the past in our clinic. Patient reports low lumbar back pain that is constant, dull, aching. Patient denies much radiculopathy. However, he reports pain is centralized low lumbar back. He rates his pain 8/10. Procedure Details:: Procedure: Lumbar epidural steroid injection under fluoroscopy Informed consent was obtained and the risks and benefits of the procedure were explained to the patient. The patient was taken to the procedure room and noninvasive monitors placed, including noninvasive blood pressure cuff and pulse oximeter. The back was viewed using C-arm Fluoroscopy and prepped using Chloraprep as a cleansing solution and the L4-L5 interspace was palpated. Skin and subcutaneous tissues were anesthetized using lidocaine 1.5% and a 25-gauge needle. After this, an 18-gauge Touhy epidural needle was placed into the L4-L5 interspace and advanced using fluoroscopic guidance and loss of resistance to air until the epidural space was encountered. After confirmation of needle placement in the epidural space, with dye, a solution containing normal saline, 3 mL and Depo-Medrol 80 mg were incrementally injected into the lumbar epidural space. The patient tolerated the procedure well with no complications. The patient was observed in the Pain Clinic and then discharged home neurologically intact. Plan and Disposition:: Patient was discharged without incident.
== END 2023-12-26 10:50 | disposition home or self-care (01) ==
PROVIDERS: PCP Family Medicine; Visit Provider Nurse Anesthetist, Certified Registered
DX: M51.16 Intervertebral disc disorders with radiculopathy, lumbar region (principal)
CPT/HCPCS: 62323; J1010

== ENCOUNTER 2024-01-15 11:12 | Outpatient (POV) | payer MEDICARE, SELFPAY ==
[2024-01-15 11:46] VITALS: BP 150/89; PULSE 86; RESP 18; O2SAT 96; BMI 35.2
--- NOTE | 2024-01-15 11:59 | A.OFFVIS_ITS ---
[facility] Disclaimer: The information contained in this section may have been updated after the patient was seen, as this information can be updated by other users. Medical History Sleep apnea Nocturnal hypoxemia Chronic hypoxemic respiratory failure COPD (chronic obstructive pulmonary disease) Screening for lung cancer Pulmonary emphysema Smoking greater than 30 pack years Tobacco abuse disorder Dyspnea on exertion Tobacco abuse counseling Elevated left ventricular end-diastolic pressure (LVEDP) Sinus tachycardia Gastroesophageal reflux disease Dyspnea Edema HLD (hyperlipidemia) HHD (hypertensive heart disease) Non-ischemic cardiomyopathy CAD (coronary artery disease) NYHA class 3 heart failure with reduced ejection fraction NYHA class 3 acute on chronic systolic heart failure Other forms of angina pectoris Surgical History Status post insertion of nerve stimulator Hx of cervical spine surgery History of arthroscopic knee surgery Family History Other Family history non-contributory Social History Smoking Status: Current every day smoker tobacco type: cigarettes packs per day: 1 alcohol intake: never substance use type: denies use current occupational status: other Travel in the last 8 weeks: None household members: spouse housing: house lives independently: No marital status: education level: high school service: No fci: No current occupational exposures/hazards: No caffeine: Yes special deneen needs: No agree to transfusion: No do you feel safe at home: Yes victim of physical abuse: No victim of emotional abuse: No victim of sexual abuse: No would you like helpful sources: No PM Subjective & Objective Subjective Subjective:: Patient is a pleasant 58-year-old male who presents today for follow-up of lumbar epidural steroid injection L4-L5 on 12/26/2023. He denies any new falls or injuries. He does state that the injection did provide approximately 70% relief however it only lasted 2 days and he is back to his baseline. Patient did previously have 1 injection that lasted about 2 months and he was hoping to have this amount of relief. Patient states the pain is constant and interferes with his ability perform activities of daily living. Patient states that he is not interested in any additional injection therapy because it has been so shortly left. Patient is managed with gabapentin 800 mg 4 times a day and methocarbamol 750 mg twice a day. Patient was just given a 90-day supply of this medication at the last visit and does not need refills. His Ancelmo has been reviewed and is appropriate. Review of Systems: General: No recent weight changes, no fever, no sleep disturbances Respiratory: No cough, no shortness of air, no recurring pulmonary infections Cardiovascular/peripheral vascular: No chest pain, no palpitations, no edema, no shortness of breath Gastrointestinal: No new onset incontinence, normal bowel movements reported Genitourinary: No new onset incontinence Musculoskeletal: Low back pain Psychiatric: [Normal mood/affect] Neurological: [Denies weakness in extremities], [denies balance issues] Pain at rest (0-10 scale): 7 Objective Objective:: Physical Exam: General: Alert and oriented x3, no acute distress, pleasant and cooperative Lungs: Respirations even and unlabored, symmetrical chest expansion Eyes: PERRL Musculoskeletal: Flexion and extension of lumbar [spine] somewhat guarded secondary to pain, [antalgic gait noted] Neurological: Speech clear, no gross sensory deficit Has patient had previous pain injection?: Yes Percent improvement in pain since last injection: 70% Conservative treatment options previously tried: Home exercise plan Length of treatment: Longer than 12 weeks Meds Home Medications and Allergies Home Medications ?Medication ?Instructions ?Recorded ?Confirmed ?Type potassium chloride 10 mEq 10 meq PO DAILY Supplement 07/23/20 01/15/24 History tablet,extended release quetiapine 200 mg tablet (Seroquel) 450 mg PO QDAY Insomnia 07/22/21 01/15/24 History omeprazole 40 mg capsule,delayed 40 mg PO DAILY GERD #30 caps 01/28/22 01/15/24 Rx release nitroglycerin 0.4 mg sublingual 0.4 mg sublingual Q5M PRN chest 05/20/22 01/15/24 Rx tablet (Nitrostat) pain #20 tabs aspirin 81 mg tablet,delayed 81 mg PO DAILY Blood thinner 05/23/22 01/15/24 History release (Adult Aspirin Regimen) furosemide 40 mg tablet 20 mg PO DAILY FLUID 09/05/22 01/15/24 History insulin degludec 200 unit/mL (3 10 unit SQ DAILY . 09/05/22 01/15/24 History mL) subcutaneous pen (Tresiba FlexTouch U-200 insulin) ipratropium 0.5 mg-albuterol 3 mg 3 ml inhalation QID PRN shortness 09/13/22 01/15/24 Rx (2.5 mg base)/3 mL nebulization of breath or wheezing 90 days #270 soln mL tiotropium 2.5 mcg-olodaterol 2.5 2 puff inhalation DAILY Breathing 09/28/22 01/15/24 History mcg/actuation mist for inhalation Problems (Stiolto Respimat) metoprolol succinate 50 mg See Rx Instructions .Route 03/29/23 01/15/24 Rx tablet,extended release 24 hr .COMPLEX #90 tabs losartan 100 mg tablet 100 mg PO DAILY BLOOD PRESSURE #90 05/01/23 01/15/24 Rx tabs rosuvastatin 20 mg tablet 20 mg PO DAILY Cholesterol #90 tabs 05/31/23 01/15/24 Rx gabapentin 600 mg tablet 600 mg PO QID Pain #360 tabs 07/27/23 01/15/24 Rx albuterol sulfate 90 mcg/actuation See Rx Instructions .Route 08/28/23 01/15/24 Rx aerosol inhaler .COMPLEX #1 ea glimepiride 4 mg tablet 4 mg PO DAILY 10/05/23 01/15/24 History lamotrigine 200 mg tablet 200 mg PO BID 10/05/23 01/15/24 History metformin 500 mg tablet 1,000 mg PO BID 10/05/23 01/15/24 History vilazodone 40 mg tablet 40 mg PO DAILY 10/05/23 01/15/24 History gabapentin 800 mg tablet 800 mg PO TID #270 tabs 12/06/23 01/15/24 Rx (Neurontin) methocarbamol 750 mg tablet 750 mg PO BID #180 tabs 12/06/23 01/15/24 Rx New Prescriptions to Start Prescriptions: Allergies Allergy/AdvReac Type Severity Reaction Status Date / Time hydrocodone [From VICODIN] Allergy Unknown itching Verified 10/05/23 09:32 Assessment and Plan *Assessment and plan (1) Lumbar radiculopathy: Status: Acute Category: Medical Code(s): M54.16 - Radiculopathy, lumbar region (2) Degenerative disc disease: Status: Chronic Qualifiers: Spinal region: mid-cervical Mid-cervical spinal level: unspecified Qualified Code(s): M50.320 - Other cervical disc degeneration, mid-cervical region, unspecified level Category: Medical Plan I did discuss at length with the patient that we can always try repeat injections in the future however it is also completely fine if he does not want to proceed forward with that option. Patient was counseled that we would do more conservative treatment such as the gabapentin and methocarbamol. Patient was counseled he can add an extra methocarbamol during the day and see if this makes any improvement. Patient was also discussed regarding the arthritis and that unfortunately due to his heart history it is contraindicated for him to to have any NSAIDs and he has to rely on Tylenol products. I did discuss with him that they do have Tylenol arthritis that may be beneficial. Patient will follow-up in 2 months for reevaluation of symptoms and plan of care. Patient has been instructed to contact the clinic with any concerns before the next appointment. Dr. Anne has reviewed this note and agrees with this plan of care. This note was dictated using voice recognition software and make contain errors or omissions. All injections are used with Lidocaine or Bupivacaine and Depo Medrol.
== END 2024-01-15 23:59 | disposition home or self-care (01) ==
PROVIDERS: PCP Family Medicine; Visit Provider Nurse Practitioner Family
DX: M54.16 Radiculopathy, lumbar region (principal); M50.320 Other cervical disc degeneration, mid-cervical region, unspecified level; F17.210 Nicotine dependence, cigarettes, uncomplicated; Z73.89 Other problems related to life management difficulty; Z79.899 Other long term (current) drug therapy
CPT/HCPCS: 99212; G0463

== ENCOUNTER 2024-03-04 09:08 | Outpatient (POV) | payer MEDICARE, SELFPAY ==
--- NOTE | 2024-03-04 09:37 | EXP.PAIN.SOA ---
[facility] Disclaimer: The information contained in this section may have been updated after the patient was seen, as this information can be updated by other users. Medical History Sleep apnea Nocturnal hypoxemia Chronic hypoxemic respiratory failure COPD (chronic obstructive pulmonary disease) Screening for lung cancer Pulmonary emphysema Smoking greater than 30 pack years Tobacco abuse disorder Dyspnea on exertion Tobacco abuse counseling Elevated left ventricular end-diastolic pressure (LVEDP) Sinus tachycardia Gastroesophageal reflux disease Dyspnea Edema HLD (hyperlipidemia) HHD (hypertensive heart disease) Non-ischemic cardiomyopathy CAD (coronary artery disease) NYHA class 3 heart failure with reduced ejection fraction NYHA class 3 acute on chronic systolic heart failure Other forms of angina pectoris Surgical History Status post insertion of nerve stimulator Hx of cervical spine surgery History of arthroscopic knee surgery Family History Other Family history non-contributory Social History Smoking Status: Current every day smoker tobacco type: cigarettes packs per day: 1 alcohol intake: never substance use type: denies use current occupational status: other Travel in the last 8 weeks: None household members: spouse housing: house lives independently: No marital status: education level: high school service: No senior living: No current occupational exposures/hazards: No caffeine: Yes special deneen needs: No agree to transfusion: No do you feel safe at home: Yes victim of physical abuse: No victim of emotional abuse: No victim of sexual abuse: No would you like helpful sources: No PM Subjective & Objective Subjective Subjective:: Patient is a pleasant 58-year-old male who presents today for medication refill and follow-up. Today he rates his pain a 7 out of 10. Patient denies any new trauma or injury. He does state that he has been having worsening pain that he believes is related to the weather. Patient denies any new falls or injuries. Patient has had lumbar epidurals in the past that have provided significant relief however they have varied on how long the relief has been. Patient is currently managed with gabapentin 800 mg 4 times a day and methocarbamol 750 mg twice a day from our office. He denies any side effects from this medication. His Ancelmo has been reviewed and is appropriate. Review of Systems: General: No recent weight changes, no fever, no sleep disturbances Respiratory: No cough, no shortness of air, no recurring pulmonary infections Cardiovascular/peripheral vascular: No chest pain, no palpitations, no edema, no shortness of breath Gastrointestinal: No new onset incontinence, normal bowel movements reported Genitourinary: No new onset incontinence Musculoskeletal: Low back pain Psychiatric: [Normal mood/affect] Neurological: [Denies weakness in extremities], [denies balance issues] Pain at rest (0-10 scale): 7 Objective Objective:: Physical Exam: General: Alert and oriented x3, no acute distress, pleasant and cooperative Lungs: Respirations even and unlabored, symmetrical chest expansion Eyes: PERRL Musculoskeletal: Flexion and extension of lumbar [spine] somewhat guarded secondary to pain, [antalgic gait noted] Neurological: Speech clear, no gross sensory deficit Has patient had previous pain injection?: No Conservative treatment options previously tried: Home exercise plan Length of treatment: Longer than 12 weeks Meds Home Medications and Allergies Home Medications ?Medication ?Instructions ?Recorded ?Confirmed ?Type potassium chloride 10 mEq 10 meq PO DAILY Supplement 07/23/20 01/15/24 History tablet,extended release quetiapine 200 mg tablet (Seroquel) 450 mg PO QDAY Insomnia 07/22/21 01/15/24 History omeprazole 40 mg capsule,delayed 40 mg PO DAILY GERD #30 caps 01/28/22 01/15/24 Rx release nitroglycerin 0.4 mg sublingual 0.4 mg sublingual Q5M PRN chest 05/20/22 01/15/24 Rx tablet (Nitrostat) pain #20 tabs aspirin 81 mg tablet,delayed 81 mg PO DAILY Blood thinner 05/23/22 01/15/24 History release (Adult Aspirin Regimen) furosemide 40 mg tablet 20 mg PO DAILY FLUID 09/05/22 01/15/24 History insulin degludec 200 unit/mL (3 10 unit SQ DAILY . 09/05/22 01/15/24 History mL) subcutaneous pen (Tresiba FlexTouch U-200 insulin) ipratropium 0.5 mg-albuterol 3 mg 3 ml inhalation QID PRN shortness 09/13/22 01/15/24 Rx (2.5 mg base)/3 mL nebulization of breath or wheezing 90 days #270 soln mL tiotropium 2.5 mcg-olodaterol 2.5 2 puff inhalation DAILY Breathing 09/28/22 01/15/24 History mcg/actuation mist for inhalation Problems (Stiolto Respimat) rosuvastatin 20 mg tablet 20 mg PO DAILY Cholesterol #90 tabs 05/31/23 01/15/24 Rx gabapentin 600 mg tablet 600 mg PO QID Pain #360 tabs 07/27/23 01/15/24 Rx albuterol sulfate 90 mcg/actuation See Rx Instructions .Route 08/28/23 01/15/24 Rx aerosol inhaler .COMPLEX #1 ea glimepiride 4 mg tablet 4 mg PO DAILY 10/05/23 01/15/24 History lamotrigine 200 mg tablet 200 mg PO BID 10/05/23 01/15/24 History metformin 500 mg tablet 1,000 mg PO BID 10/05/23 01/15/24 History vilazodone 40 mg tablet 40 mg PO DAILY 10/05/23 01/15/24 History gabapentin 800 mg tablet 800 mg PO TID #270 tabs 12/06/23 01/15/24 Rx (Neurontin) methocarbamol 750 mg tablet 750 mg PO BID #180 tabs 12/06/23 01/15/24 Rx metoprolol succinate 50 mg See Rx Instructions .Route 01/22/24 Rx tablet,extended release 24 hr .COMPLEX #90 tabs losartan 100 mg tablet 100 mg PO DAILY BLOOD PRESSURE #90 02/19/24 Rx tabs New Prescriptions to Start Prescriptions: Allergies Allergy/AdvReac Type Severity Reaction Status Date / Time hydrocodone (From VICODIN) Allergy Unknown itching Verified 10/05/23 09:32 Assessment and Plan *Assessment and plan (1) Lumbar radiculopathy: Status: Acute Category: Medical Code(s): M54.16 - Radiculopathy, lumbar region (2) Degenerative disc disease: Status: Chronic Qualifiers: Spinal region: mid-cervical Mid-cervical spinal level: unspecified Qualified Code(s): M50.320 - Other cervical disc degeneration, mid-cervical region, unspecified level Category: Medical Plan I will refill the patient's gabapentin and methocarbamol and provide a 3-month supply of this medication. Patient will return to clinic in 3 months for reevaluation of symptoms and plan of care. Risks and benefits of the medication have been explained in detail to the patient. The patient does understand the risk of dependence on the medication when given over a prolonged period. Patient has been advised of risks of oversedation with the prescribed medication. Narcan has been offered to the paitent in the event of oversedation. Patient has been advised that a family member should also be educated regarding administration of Narcan. The patient has been advised to consult with his/her primary care provider and pharmacist regarding drug-drug interaction of medications currently prescribed. Patient has been prescribed a controlled substance after being counseled on the medication, medication safety, and possible side effects. Opioid contract was reviewed and signed by the patient, and that they have agreed to all of the terms set forth by our compliance program. A UDS is needed to verify patient's compliance with our office pain contract. This is ordered based off specific treatments related to chronic pain with the potential to abuse certain medications. Patient has been instructed to contact the clinic with any concerns before the next appointment. Dr. Anne has reviewed this note and agrees with this plan of care. This note was dictated using voice recognition software and make contain errors or omissions.
[2024-03-04 10:06] VITALS: BP 141/89; PULSE 98; RESP 18; O2SAT 95; BMI 36.3
== END 2024-03-04 23:59 | disposition home or self-care (01) ==
PROVIDERS: PCP Family Medicine; Visit Provider Nurse Practitioner Family
DX: M54.16 Radiculopathy, lumbar region (principal); M50.320 Other cervical disc degeneration, mid-cervical region, unspecified level; F17.210 Nicotine dependence, cigarettes, uncomplicated; Z79.899 Other long term (current) drug therapy
CPT/HCPCS: 99212; G0463

== ENCOUNTER 2024-04-18 10:59 | Outpatient (CLI) | payer MEDICARE, SELFPAY ==
[2024-04-18 11:06] LABS: Coronavirus 19, PCR Not Detected (NotDetected); Influenza B, PCR Not Detected (NotDetected)
--- NOTE | 2024-04-18 11:14 | XR_ITS ---
FINAL REPORT TECHNIQUE: Chest PA & Lateral CLINICAL HISTORY: ACUTE URI chronic cough x few days COMPARISON: 06/23/2023 FINDINGS: 2 views of the chest were performed. Mild cardiomegaly is present. The mediastinum is within normal limits. There is no acute cardiopulmonary process. There are no pleural effusions. There is no pneumothorax. There is orthopedic hardware overlying the lower cervical spine consistent with a fusion. IMPRESSION: Mild cardiomegaly, otherwise no acute cardiopulmonary process. Reviewed, Interpreted and Dictated by Tereso Guillen MD Transcribed by Gladys Bai Authenticated and [facility]
[2024-04-18 11:23] LABS: Basophils % 0.5 % (0.1-2.0); Eosinophils % 0.7 % (0.1-12.0); Hematocrit 46.8 % (42.0-52.0); Hemoglobin 14.8 g/dL (14.1-18.0); Lymphocytes # 0.8 K/mm3 (0.7-4.5); Lymphocytes % 15.3 % (10-50); Mean Corpuscular HGB Conc 31.6 g/dL (31.8-35.4); Mean Corpuscular Volume 88.6 fl (80-94); Mean Platelet Volume 11.6 fl (7.4-10.4); Monocytes # 0.7 K/mm3 (0.1-1.0); Monocytes % 11.8 % (1.7-9.3); Neutrophils # 3.9 K/mm3 (1.8-7.8); Neutrophils % 71.5 % (37.0-80.0); Platelet Count 108 K/mm3 (142-424); Red Blood Count 5.28 M/mm3 (4.60-6.20); Red Cell Distribution Width 14.1 % (11.5-17.5); White Blood Count 5.5 K/mm3 (4.8-10.8)
[2024-04-18 11:39] LABS: Albumin Level 4.1 g/dl (3.5-5.0); Chloride 105 mmol/L (98-107); Potassium 4.2 mmoL/L (3.5-5.1); Sodium 140 mmol/L (136-145)
[2024-04-18 11:41] LABS: Alanine Aminotransferase 41 U/L (12-78); Anion Gap 15.2 mEq/L (5-15); Aspartate Amino Transferase 40 U/L (17-59); Bilirubin,Unconjugated 0.2 mg/dL (0.0-1.1); Blood Urea Nitrogen 9 mg/dl (9-20); Carbon Dioxide 24 mmol/L (22.0-30.0); Estimated Glomerular Filt Rate 52 ml/min (>60); GFR (African American) 63 ML/MIN (>60)
[2024-04-18 11:42] LABS: Alkaline Phosphatase 61 U/L (38-126); Bilirubin,Direct 0.1 mg/dl (0.0-0.4); Bilirubin,Indirect 0.2 mg/dL (0.0-0.9); Bilirubin,Total 0.3 mg/dl (0.2-1.3); Calcium 9.3 mg/dl (8.4-10.2); Cholesterol 97 mg/dl (140-200); Glucose 150 mg/dl (74-100); HDL Cholesterol 24 mg/dl (40-60); Magnesium 1.8 mg/dl (1.6-2.3); Total Protein,Serum 6.7 g/dl (6.3-8.2); Triglycerides 193 mg/dl (30-150); VLDL Cholesterol 39 mg/dL (0-40)
[2024-04-18 11:53] LABS: Direct LDL Cholesterol 40.13 mg/dL (100-129)
[2024-04-18 12:15] LABS: Thyroid Stimulating Hormone 2.38 uIU/mL (0.465-4.68)
[2024-04-18 13:14] LABS: Influenza A, PCR Detected (NotDetected)
== END 2024-04-18 23:59 | disposition home or self-care (01) ==
LOC: LAB 11:00
PROVIDERS: Nurse Practitioner Family; PCP Physician Assistant; Visit Provider Physician Assistant
DX: I11.9 Hypertensive heart disease without heart failure (principal); E78.5 Hyperlipidemia, unspecified; F17.200 Nicotine dependence, unspecified, uncomplicated; R00.0 Tachycardia, unspecified; I25.118 Atherosclerotic heart disease of native coronary artery with other forms of angina pectoris; I42.8 Other cardiomyopathies; R06.00 Dyspnea, unspecified; J09.X9 Influenza due to identified novel influenza A virus with other manifestations
CPT/HCPCS: 36415; 71046; 80048; 80061; 80076; 83735; 84439; 84443; 85025; 87636

== ENCOUNTER 2024-05-06 07:34 | Outpatient (CLI) | payer MEDICARE, SELFPAY ==
[2024-05-06] VITALS (7 sets, daily range): BP systolic 101–130; BP diastolic 64–89; PULSE 65–80; RESP 15–18; TEMP 36.8; O2SAT 92–93; BMI 37.3
--- NOTE | 2024-05-06 07:38 | CA_ITS ---
APPROVED REPORT EXAM: Comprehensive 2D, Doppler, and color-flow Echocardiogram Target Man: Helen Navarrete RDCS Ht: 5 ft 10 in Wt: 261lbs BSA: 2.34 BP: 129/83 mmHg Indications: COPD,CP,SOA M-Mode Dimensions RVDd 1.65 cm (0.9-2.6) LA Diam 4.81 cm (1.9-4.0) LVDd 6.81 cm (3.5-5.7) LVDs 4.61 cm (3.5-5.7) IVSd 0.72 cm (0.6-1.1) PWd 1.01 cm (0.6-1.1) EF (Teich) 59.30% FS 32.30% EDV (Teich) 240.00 mL TAPSE 2.26 (<1.7) ESV (Teich) 97.80 mL LV Diastology E Decel Time 243 (160-240 msec) E/A Ratio 0.9 Mitral Valve MV E Max Jan. 92.0 (40-130 cm/s) MV A Velocity 106.0 (40-130 cm/s) E/A Ratio 0.87 MV PHT 71.0 ms Left Ventricle The left ventricle is normal size. The left ventricular systolic function is normal. The left ventricular ejection fraction is within the normal range. There is increased LV wall thickness. There is normal LV segmental wall motion. Transmitral Doppler flow pattern suggests impaired LV relaxation. LVEF is 55%. Right Ventricle Right ventricle is mildly dilated. The right ventricular systolic function is normal. Atria Left atrium is mildly dilated. Right atrium is mildly dilated. There is no Doppler evidence of interatrial shunt. Aortic Valve Aortic valve is mildly thickened. There is no aortic valvular stenosis. No aortic regurgitation is present. Mitral Valve The mitral valve leaflets are mildly thickened. No evidence of mitral valve stenosis. Mild mitral regurgitation. Tricuspid Valve Tricuspid valve is grossly normal in structure and function. Trace tricuspid regurgitation. There is insufficient TR jet to estimate RVSP. Pulmonic Valve The pulmonary valve is normal in structure. Trace pulmonic regurgitation. Great Vessels The aortic root is normal in size. IVC is normal in size and collapses >50% with inspiration. Pericardium There is no pericardial effusion. Other Information Study Quality: Fair Conclusion Normal biventricular systolic function. Mild RV dilation. Mild biatrial dilation. Mild MR. Electronically signed by : Christy Abebe MD 05/08/2024 00:33:50
--- NOTE | 2024-05-06 07:59 | CT_ITS ---
APPROVED REPORT Case Making Machine Operator: CLINICAL INDICATION Chest Pain TECHNIQUE Image Acquisition: A 128 slice MDCT scanner ([employer]) was used for data acquisition. A noncontrast coronary calcium scan was performed. A CT attenuation threshold of 130 Hounsfield units (HU) was used for the detection of calcium in contiguous voxels of 1 sq mm in area to be counted as individual lesions. Bolus tracking in the ascending aorta with a threshold of 180 HU was performed. Immediately afterwards, ECG synchronized cardiac CT was then performed from the cardiac base to apex using retrospective gating with ECG tube current modulation. A total of 85 mL of Isovue 370 mg/mL contrast medium was administered at 5 mL/sec followed by a saline flush using a biphasic injection protocol. A tube voltage of 120 KVp was used. The patient received the following medications prior to the cardiac CT. 75 mg of oral metoprolol 15 mg of oral ivabradine 0.8 mg of sublingual nitroglycerin The average heart rate at the time of acquisition was 59 bpm and regular. Image Reconstruction Transaxial images were reconstructed at 0.67 mm slide thickness. Data was reviewed interactively on an advanced workstation capable of 2 and 3-dimensional displays in all conventional reconstruction formats, including multiplanar reformations, maximum intensity projections, curved multiplanar reformations, and volume rendered reconstructions. When applicable, selected routine images describing the relevant coronary anatomy and pathology were saved and sent to PACS. Complications None Technical Quality Overall image quality was suboptimal due to significant motion and blurring artifact. This may affect the diagnostic interpretation of the study findings. Coronary artery opacification was adequate. Total DLP (Dose-Length Product) is 1813.7 mGy-cm. The reported value represents the total of one or more individual components during the CT acquisition of this date and at this time, and as such, the same value may appear in more than one CT report depending on the interpreting/reporting physicians. COMPARISON None FINDINGS CT Coronary Calcium Scoring LMA (Left Main Artery) = 165 LAD (Left Anterior Descending) = 55 LCX (Left Coronary Circumflex) = 0 RCA (Right Coronary Artery) = 24 Total Calcium Score = 244 using the AJ-130 method. The observed calcium score of 244 is at 87th percentile for subjects of the same age, sex, and race/ethnicity. The interpretation of the calcium heart score is based on the following continuum*: 0 = no calcified plaque detected (risk of coronary artery disease is very low ??? less than 5%) 1-10 = calcium detected in extremely minimal levels (risk of coronary diseases is still low ??? less than 10%) 11-100 = mild levels of plaque detected with certainty (mild or minimal narrowing of heart arteries is likely) 101-400 = definite,at least moderate levels of plaque detected (relatively high risk of a heart attack within 3-5 years) >401-999 = extensive levels of plaque detected (high risk of heart attack, high levels of vascular disease are present, high likelihood of at least one significant coronary narrowing) *The calcium heart score quantifies the burden of coronary calcification/plaque in the coronary arteries. The calcium heart score is not able to evaluate the presence or burden of non-calcified (i.e. soft) plaque. There is also calcification in the aortic valve, mitral annulus, and the ascending, transverse, and descending thoracic aorta. Coronary CT Angiography The coronary arterial system is left dominant. Quantitative Stenosis Grading: Left Main (LM): The left main originates normally from the left sinus of Valsalva. The LM bifurcates into the left anterior descending artery and left circumflex artery. There is calcified plaque in the proximal LM segment, with < 25% luminal stenosis. Left Anterior Descending (LAD) and Diagonal Branches: The LAD gives off 3 diagonal branch(es). There is mixed calcified/noncalcified plaque in the proximal LAD segment, with up to 25-49% luminal stenosis. There is no evidence of LAD-myocardial bridge. Left Circumflex (LCX) and Obtuse Marginals (OM): The LCX gives off 2 Obtuse Marginal (OM) branch(es). There is mixed calcified/noncalcified plaque in the proximal and mid LCx segments with up to 50 to 70% luminal stenosis in the mid LCx segment. Right Coronary Artery (RCA): The RCA originates normally from the right sinus of Valsalva. There is mixed calcified/noncalcified plaque in the proximal RCA segment with up to 25-49% luminal stenosis. Non-Coronary Cardiac Findings: Analysis of the left ventricular (LV) structure and function was performed after 3-D reconstruction of the LV from axial images, with user-corrected automatic contouring for assessment of LV volumes and user-defined reconstruction from oblique planes for measurement of 3-D cardiac structure and function. -The left ventricle systolic function is normal. -There is no left atrial appendage filling defect. Two right pulmonary veins and two left pulmonary veins drain normally into the left atrium. -No pericardial thickening or calcification. -Central and branch pulmonary arteries in the [id number] are unremarkable. -Thoracic aorta within the visualized thoracic aortic-branches in the [id number] is unremarkable. Extracardiac Structures No significant extra-cardiac findings. Note, however, that this study is focused on the cardiac findings. IMPRESSION -Suboptimal image quality, with difficult to visualize some segments of the coronary tree due to significant motion and blurring artifact. This may affect the diagnostic interpretation of the study findings. -Presence of coronary calcification with an Agatston score = 244 using the AJ-130 method. -The observed calcium score of 244 is at 87th percentile for subjects of the same age, sex, and race/ethnicity. -Mild to moderate atherosclerotic coronary disease, with possible evidence of significant flow-limiting atherosclerosis of the mid LCx segment. -CAD-RADS 3. Management recommendations per ACC/AHA guidelines*, as clinically appropriate. *Recommendations: CAD RADS 0: Reassurance. Consider non-atherosclerotic causes of chest pain. CAD RADS 1: Consider non-atherosclerotic causes of chest pain. Consider preventive therapy and risk factor modification. CAD RADS 2: Consider non-atherosclerotic causes of chest pain. Consider preventive therapy and risk factor modification, particularly for patients with nonobstructive plaque in multiple segments. CAD RADS 3: Consider further functional testing. Consider symptom-guided anti-ischemic and preventive pharmacotherapy as well as risk factor modification per published guideline statements. CAD RADS 4A: Consider further functional testing or invasive coronary angiography with revascularization per published guideline statements. Consider symptom-guided anti-ischemic and preventive pharmacotherapy as well as risk factor modification per published guideline statements. CAD RADS 4B: Invasive coronary angiography recommended with revascularization per published guideline statements. Consider symptom-guided anti-ischemic and preventive pharmacotherapy as well as risk factor modification per published guideline statements. CAD RADS 5: Consider invasive angiography and/or viability assessment with revascularization per published guideline statements. Consider symptom-guided anti-ischemic and preventive pharmacotherapy as well as risk factor modification per published guideline statements. CRITICAL RESULT None COMMUNICATION Per this written report The coronary and cardiac findings of this CCTA were reviewed, reported, and signed by Steven Abebe MD (Compliance Counsel) Conclusion Electronically signed by : Christy Abebe MD 05/08/2024 00:30:59
[2024-05-06] MEDS: IVABRADINE HCL 7.5MG TABLET PO (09:19)
[2024-05-06] MEDS: METOPROLOL TARTRATE 25MG TABLET 25 MG (09:19)
[2024-05-06] MEDS: METOPROLOL TARTRATE 50MG TABLET PO (09:19)
--- NOTE | 2024-05-06 09:22 | PC.NURSE ---
FSBS - 63 Pt given two orange juices, will recheck BS prior to proceeding w/ ccta.
[2024-05-06] MEDS: 0.9 % SODIUM CHLORIDE 50 ML VIAL IV (11:01)
[2024-05-06] MEDS: SODIUM CHLORIDE 0.9% 10ML SYR (RAD ONLY) 10 ML IV (11:02)
[2024-05-06] MEDS: IOPAMIDOL-370 (76%);100ML BOTTLE 85 ML IV (11:02)
[2024-05-06] MEDS: NITROGLYCERIN 0.4MG SL TABLET SL (11:13)
== END 2024-05-06 11:00 | disposition home or self-care (01) ==
LOC: RT 07:35 → RAD 08:21
PROVIDERS: PCP Family Medicine; Visit Provider Nurse Practitioner Family
DX: I25.118 Atherosclerotic heart disease of native coronary artery with other forms of angina pectoris (principal); I10 Essential (primary) hypertension; E78.2 Mixed hyperlipidemia; F17.200 Nicotine dependence, unspecified, uncomplicated; R00.0 Tachycardia, unspecified; I42.8 Other cardiomyopathies; R06.00 Dyspnea, unspecified
CPT/HCPCS: 75574; 93306; Q9967

== ENCOUNTER 2024-05-13 08:09 | Day surgery (SDC) | payer MEDICARE, SELFPAY ==
[2024-05-13] VITALS (12 sets, daily range): BP systolic 100–148; BP diastolic 62–92; PULSE 77–89; RESP 16–20; O2SAT 90–94; BMI 38.2
--- NOTE | 2024-05-13 07:14 | IR_ITS ---
APPROVED REPORT Patient Location: Outpatient Television Antenna Installer: JOAQUIN Everett RT (R) PROCEDURES Left heart catheterization Left ventriculogram Selective coronary angiogram Drug-eluting stent deployment to the dominant circumflex artery's terminal obtuse marginal artery INDICATION Coronary artery disease, Angina pectoris, Abnormal CCTA Informed consent was obtained prior to the procedure. COMPLICATIONS NONE Estimated Blood Loss: LESS THAN 10 ML TECHNIQUE One percent lidocaine used to anesthetize the right anterior aspect of the wrist. The right radial artery was accessed via the Seldinger technique. A 6 Bulgarian sheath was placed in the right radial artery. 2.5 mg of Verapamil, 800 mcg of nitroglycerin, 1mg Lidocaine and 5000 U Heparin were given through the arterial sheath. The 6 Bulgarian JL 3 catheter was also used to perform left heart catheterization, left ventriculogram and selective coronary angiogram. At the end of the diagnostic angiogram therapeutic Was administered given a therapeutic ACT and the guide catheter was placed in the left main artery followed by Choice PT export wire placed distally in the circumflex artery. A 3 mm x 12 mm [place] frontier stent was deployed at 18 blanca reducing the severe stenosis to 0% ALEXA-3 flow was present before and after the procedure. At the end the procedure the apparatus was removed the sheath was removed and hemostasis was achieved using TR banding patient was transferred to the postop putting in stable condition ANGIOGRAPHIC RESULTS The left main artery Normal The left anterior descending artery Is normal. The circumflex artery Is dominant and gives rise to a large ramus intermedius which is normal. The circumflex artery itself has mid vessel 40% stenosis. The terminal obtuse marginal artery which functions of the posterior descending artery is large and has a proximal concentric 70% stenosis The right coronary artery Is nondominant has a mid vessel 30% stenosis The PALMA ventriculogram reveals Normal 65% The left ventricular end-diastolic pressure Elevated at 20 to 25 mmHg IMPRESSION Severe disease in the dominant circumflex artery as described above Successful stenting of the distal dominant circumflex artery severe disease reduced to 0% with 1 drug-eluting stent Normal ejection fraction To severely elevated LVEDP PLAN 1. Dual antiplatelet therapy 2. Cardiac rehabilitation 3. Avoidance of tobacco products 4. Risk factor modification 5. Further evaluation of renal insufficiency. 6. Consider evaluation for amyloidosis Electronically signed by : Alexsander Anderson MD 05/13/2024 11:08:38
[2024-05-13 08:35] LABS: Basophils # 0.1 K/mm3 (0-0.2); Basophils % 0.6 % (0.1-2.0); Eosinophils # 0.2 K/mm3 (0.0-0.4); Hematocrit 46.9 % (42.0-52.0); Hemoglobin 14.7 g/dL (14.1-18.0); Lymphocytes # 2.6 K/mm3 (0.7-4.5); Lymphocytes % 29.9 % (10-50); Mean Corpuscular HGB Conc 31.3 g/dL (31.8-35.4); Mean Corpuscular Hemoglobin 27.9 pg (27.0-31.2); Mean Platelet Volume 11.3 fl (7.4-10.4); Monocytes # 0.7 K/mm3 (0.1-1.0); Monocytes % 7.8 % (1.7-9.3); Neutrophils # 5.2 K/mm3 (1.8-7.8); Neutrophils % 59.4 % (37.0-80.0); Platelet Count 142 K/mm3 (142-424); Red Blood Count 5.27 M/mm3 (4.60-6.20); Red Cell Distribution Width 14.5 % (11.5-17.5); White Blood Count 8.7 K/mm3 (4.8-10.8)
[2024-05-13 08:44] LABS: Chloride 98 mmol/L (98-107); Sodium 137 mmol/L (136-145)
[2024-05-13 08:45] LABS: Potassium 3.6 mmoL/L (3.5-5.1)
[2024-05-13 08:47] LABS: Blood Urea Nitrogen 21 mg/dl (9-20); Creatinine Clearance Estimated 70 mL/min (50-200); Estimated Glomerular Filt Rate 35 ml/min (>60); GFR (African American) 42 ML/MIN (>60)
[2024-05-13 08:48] LABS: Anion Gap 12.6 mEq/L (5-15); Calcium 9.2 mg/dl (8.4-10.2); Carbon Dioxide 30 mmol/L (22.0-30.0); Glucose 145 mg/dl (74-100)
[2024-05-13] MEDS: LIDOCAINE 1% 10ML MDV 20 ML IJ (10:44)
[2024-05-13] MEDS: MIDAZOLAM HCL 1MG/ML 5ML VIAL 1 MG IV (10:44)
[2024-05-13] MEDS: HEPARIN 1,000 UNITS/500ML NS (CATH LAB) 3000 UNIT IV (10:44)
[2024-05-13] MEDS: FENTANYL 100MCG/2ML VIAL 50 MCG IV (10:44)
[2024-05-13] MEDS: diphenhydrAMINE 50MG/ML VIAL 50 MG IV (10:44)
[2024-05-13] MEDS: 0.9 % SODIUM CHLORIDE 500 ML 25 ML IV (10:45)
[2024-05-13] MEDS: HEPARIN 1,000 UNITS/ML 10ML VIAL (CATH LAB) 10000 UNIT IV (10:46)
[2024-05-13] MEDS: VERAPAMIL 2.5MG/ML 2ML VIAL 2.5 MG IV (10:46)
[2024-05-13] MEDS: NITROGLYCERIN 800MCG/8ML SYR (CATH LAB) 800 MCG IA (10:47)
[2024-05-13] MEDS: PRASUGREL 10MG TAB 60 MG PO (11:26)
[2024-05-13] MEDS: IOPAMIDOL-370 (76%);100ML BOTTLE 60 ML IV (11:45)
[2024-05-13 11:46] LABS: CATHL Activated Clotting Time > 400 SEC (74-125)
== END 2024-05-13 14:08 | disposition home or self-care (01) ==
LOC: CATHLAB 08:10
PROVIDERS: PCP Family Medicine; Visit Provider Internal Medicine
DX: I25.118 Atherosclerotic heart disease of native coronary artery with other forms of angina pectoris (principal); I11.0 Hypertensive heart disease with heart failure; E11.9 Type 2 diabetes mellitus without complications; I50.20 Unspecified systolic (congestive) heart failure; J96.11 Chronic respiratory failure with hypoxia; I42.9 Cardiomyopathy, unspecified; R93.1 Abnormal findings on diagnostic imaging of heart and coronary circulation; R06.02 Shortness of breath; F17.210 Nicotine dependence, cigarettes, uncomplicated; Z95.5 Presence of coronary angioplasty implant and graft; Z79.4 Long term (current) use of insulin; Z79.899 Other long term (current) drug therapy
CPT/HCPCS: 80048; 85025; 85347; 92928; 93458; 99152; C1725; C1769; C1874; C9600; J1200; J1644; J2250; J3010; Q9967

== ENCOUNTER 2024-05-30 09:46 | Outpatient (POV) | payer BC, SELFPAY ==
[2024-05-30 10:15] VITALS: BP 130/71; PULSE 93; RESP 14; O2SAT 93; BMI 37.4
--- NOTE | 2024-05-30 10:15 | EXP.PAIN.SOA ---
[facility] Disclaimer: The information contained in this section may have been updated after the patient was seen, as this information can be updated by other users. Medical History Abnormal findings on diagnostic imaging of heart and coronary circulation Sleep apnea Nocturnal hypoxemia Chronic hypoxemic respiratory failure COPD (chronic obstructive pulmonary disease) Screening for lung cancer Pulmonary emphysema Smoking greater than 30 pack years Tobacco abuse disorder Dyspnea on exertion Tobacco abuse counseling Elevated left ventricular end-diastolic pressure (LVEDP) Sinus tachycardia Gastroesophageal reflux disease Dyspnea Edema HLD (hyperlipidemia) HHD (hypertensive heart disease) Non-ischemic cardiomyopathy CAD (coronary artery disease) NYHA class 3 heart failure with reduced ejection fraction NYHA class 3 acute on chronic systolic heart failure Other forms of angina pectoris Surgical History Status post insertion of nerve stimulator Hx of cervical spine surgery History of arthroscopic knee surgery Family History Other Family history of cancer Family history of coronary artery disease Family history of diabetes mellitus Social History Smoking Status: Current every day smoker tobacco type: cigarettes packs per day: 1 alcohol intake: never substance use type: denies use current occupational status: other Travel in the last 8 weeks: None household members: spouse housing: house lives independently: No marital status: education level: high school service: No prison: No current occupational exposures/hazards: No caffeine: Yes special deneen needs: No agree to transfusion: No do you feel safe at home: Yes victim of physical abuse: No victim of emotional abuse: No victim of sexual abuse: No would you like helpful sources: No PM Subjective & Objective Subjective Subjective:: Patient is a pleasant 58-year-old male who presents today for 3-month medication refill. Today he rates his pain a 6 out of 10. He denies any new falls or injuries however does state that he has been having some cardiac related issues. He states about 2 weeks ago he had to have a stent placed and that he is having more done this coming Monday. Patient is currently managed with gabapentin 800 mg 4 times a day from our office and methocarbamol 750 mg. He denies any side effects. He is requesting we send these to the clinic pharmacy. His Ancelmo has been reviewed and is appropriate. Review of Systems: General: No recent weight changes, no fever, no sleep disturbances Respiratory: No cough, no shortness of air, no recurring pulmonary infections Cardiovascular/peripheral vascular: No chest pain, no palpitations, no edema, no shortness of breath Gastrointestinal: No new onset incontinence, normal bowel movements reported Genitourinary: No new onset incontinence Musculoskeletal: Low back pain Psychiatric: [Normal mood/affect] Neurological: [Denies weakness in extremities], [denies balance issues] Pain at rest (0-10 scale): 6 Objective Objective:: Physical Exam: General: Alert and oriented x3, no acute distress, pleasant and cooperative Lungs: Respirations even and unlabored, symmetrical chest expansion Eyes: PERRL Musculoskeletal: Flexion and extension of lumbar [spine] somewhat guarded secondary to pain, [antalgic gait noted] Neurological: Speech clear, no gross sensory deficit Has patient had previous pain injection?: No Conservative treatment options previously tried: Prescription medications Length of treatment: Longer than 12 weeks Meds Home Medications and Allergies Home Medications ?Medication ?Instructions ?Recorded ?Confirmed ?Type potassium chloride 10 mEq 10 meq PO DAILY Supplement 07/23/20 05/20/24 History tablet,extended release quetiapine 200 mg tablet (Seroquel) 450 mg PO QDAY Insomnia 07/22/21 05/20/24 History nitroglycerin 0.4 mg sublingual 0.4 mg sublingual Q5M PRN chest 05/20/22 05/20/24 Rx tablet (Nitrostat) pain #20 tabs aspirin 81 mg tablet,delayed 81 mg PO DAILY Blood thinner 05/23/22 05/20/24 History release (Adult Aspirin Regimen) furosemide 40 mg tablet 20 mg PO DAILY FLUID 09/05/22 05/20/24 History insulin degludec 200 unit/mL (3 10 unit SQ DAILY . 09/05/22 05/20/24 History mL) subcutaneous pen (Tresiba FlexTouch U-200 insulin) ipratropium 0.5 mg-albuterol 3 mg 3 ml inhalation QID PRN shortness 09/13/22 05/20/24 Rx (2.5 mg base)/3 mL nebulization of breath or wheezing 90 days #270 soln mL tiotropium 2.5 mcg-olodaterol 2.5 2 puff inhalation DAILY Breathing 09/28/22 05/20/24 History mcg/actuation mist for inhalation Problems (Stiolto Respimat) rosuvastatin 20 mg tablet 20 mg PO DAILY Cholesterol #90 tabs 05/31/23 05/20/24 Rx albuterol sulfate 90 mcg/actuation See Rx Instructions .Route 08/28/23 05/20/24 Rx aerosol inhaler .COMPLEX #1 ea glimepiride 4 mg tablet 4 mg PO DAILY 10/05/23 05/20/24 History lamotrigine 200 mg tablet 200 mg PO BID 10/05/23 05/20/24 History metformin 500 mg tablet 1,000 mg PO BID 10/05/23 05/20/24 History vilazodone 40 mg tablet 40 mg PO DAILY 10/05/23 05/20/24 History metoprolol succinate 50 mg See Rx Instructions .Route 01/22/24 05/20/24 Rx tablet,extended release 24 hr .COMPLEX #90 tabs losartan 100 mg tablet 100 mg PO DAILY BLOOD PRESSURE #90 02/19/24 05/20/24 Rx tabs gabapentin 800 mg tablet 800 mg PO TID #270 tabs 03/04/24 05/20/24 Rx (Neurontin) methocarbamol 750 mg tablet 750 mg PO BID #180 tabs 03/04/24 05/20/24 Rx omeprazole 40 mg capsule,delayed 40 mg PO DAILY GERD #90 caps 04/11/24 05/20/24 Rx release prasugrel HCl 10 mg tablet 10 mg PO DAILY #30 tabs 05/20/24 05/20/24 Rx (Effient) New Prescriptions to Start Prescriptions: Allergies Allergy/AdvReac Type Severity Reaction Status Date / Time hydrocodone (From VICODIN) Allergy Unknown itching Verified 05/20/24 15:57 Assessment and Plan *Assessment and plan (1) Lumbar radiculopathy: Status: Acute Category: Medical Code(s): M54.16 - Radiculopathy, lumbar region (2) Degenerative disc disease: Status: Chronic Qualifiers: Spinal region: mid-cervical Mid-cervical spinal level: unspecified Qualified Code(s): M50.320 - Other cervical disc degeneration, mid-cervical region, unspecified level Category: Medical Plan We will refill his methocarbamol and gabapentin and send a 3-month supply. Patient was counseled to let us know if he needs anything in between visits for any worsening pain. Patient is seeing Dr. Anderson for his cardiac related issues. Patient will return to clinic in 3 months. Patient has been instructed to contact the clinic with any concerns before the next appointment. Dr. Anne has reviewed this note and agrees with this plan of care. This note was dictated using voice recognition software and make contain errors or omissions. All injections are used with Lidocaine, Bupivacaine and Depo Medrol. Occasionally urine drug screen is needed to verify patient's compliance with our office pain contract. This is ordered based off specific treatments related to chronic pain with the potential to abuse certain medications.
[2024-05-30 10:39] LABS: Basophils % 0.4 % (0.1-2.0); Eosinophils # 0.1 K/mm3 (0.0-0.4); Eosinophils % 1.5 % (0.1-12.0); Hematocrit 50.6 % (42.0-52.0); Hemoglobin 16.4 g/dL (14.1-18.0); Lymphocytes # 1.7 K/mm3 (0.7-4.5); Lymphocytes % 24.7 % (10-50); Mean Corpuscular HGB Conc 32.4 g/dL (31.8-35.4); Mean Corpuscular Hemoglobin 28.2 pg (27.0-31.2); Mean Corpuscular Volume 86.9 fl (80-94); Mean Platelet Volume 11.2 fl (7.4-10.4); Monocytes # 0.4 K/mm3 (0.1-1.0); Monocytes % 5.4 % (1.7-9.3); Neutrophils # 4.7 K/mm3 (1.8-7.8); Neutrophils % 67.7 % (37.0-80.0); Platelet Count 141 K/mm3 (142-424); Red Blood Count 5.82 M/mm3 (4.60-6.20); Red Cell Distribution Width 14.4 % (11.5-17.5); White Blood Count 6.9 K/mm3 (4.8-10.8)
[2024-05-30 11:12] LABS: Anion Gap 13.7 mEq/L (5-15); Blood Urea Nitrogen 17 mg/dl (9-20); Calcium 9.7 mg/dl (8.4-10.2); Carbon Dioxide 29 mmol/L (22.0-30.0); Chloride 103 mmol/L (98-107); Creatinine Clearance Estimated 97 mL/min (50-200); Estimated Glomerular Filt Rate 52 ml/min (>60); GFR (African American) 63 ML/MIN (>60); Glucose 143 mg/dl (74-100); Potassium 3.7 mmoL/L (3.5-5.1); Sodium 142 mmol/L (136-145)
[2024-05-30 11:16] LABS: Total Protein,Serum 7.6 g/dl (6.3-8.2)
[2024-05-31 14:12] LABS: Free Kappa Lt Chains 40.4 mg/L (3.3-19.4); Free Lambda Lt Chains 37.4 mg/L (5.7-26.3)
[2024-05-31 16:12] LABS: Albumin 3.6 g/dL (2.9-4.4); Alpha-1-Globulin 0.3 g/dL (0.0-0.4); Alpha-2-Globulin 1.2 g/dL (0.4-1.0); Gamma Globulin 1.2 g/dL (0.4-1.8); Protein, Total 7.5 g/dL (6.0-8.5)
== END 2024-05-30 23:59 | disposition home or self-care (01) ==
PROVIDERS: Internal Medicine; Nurse Practitioner; PCP Family Medicine; Visit Provider Nurse Practitioner Family
DX: M54.16 Radiculopathy, lumbar region (principal); M50.320 Other cervical disc degeneration, mid-cervical region, unspecified level; R94.30 Abnormal result of cardiovascular function study, unspecified; Z95.5 Presence of coronary angioplasty implant and graft; F17.210 Nicotine dependence, cigarettes, uncomplicated; Z79.899 Other long term (current) drug therapy
CPT/HCPCS: 36415; 80048; 82784; 83883; 84155; 84165; 85025; 99212; G0463

== ENCOUNTER 2024-08-30 13:37 | Outpatient (POV) | payer MEDICARE, SELFPAY ==
--- OUTSIDE RECORDS SUMMARY | 2017-08-03 04:50 | XMS_ITS | Continuity of Care Document ---
Author Organization [facility] actice Address [address] [address] Phone Care Team Providers Care Fulfillment Specialist Name Role Phone Ronald NANCE Sal ROSADO Unavailable Unavailable Allergies, Adverse Reactions, Alerts Substance Reaction Status Criticality HYDROCODONE BITARTRATE Active No In formation acetaminophen Active No Information Medications Medication Instructions Dosage Effective Dates (start - stop) Status Comments aspirin 81 mg tablet,delayed release take 1 tablet by oral route every day 81 MG - Active metoprolol tartrate 25 mg tablet take 1 tablet by oral route 2 times every day 25 MG - Active dose increase potassium chloride ER 10 mEq tablet,extended release take 1 tablet by oral route every day with food 10 MEQ - Active lamotrigine 200 mg tablet take 1 tablet by oral route 2 times every day 200 MG - Active losartan 100 mg tablet take 1 tablet by oral route every day 100 MG - Active clonazepam 0.5 mg tablet take 1 tablet by oral route 2 times every day 0.5 MG - Active duloxetine 60 mg capsule,delayed release take 1 capsule by oral route every day 60 MG - Active donepezil 5 mg tablet take 1 tablet by oral route every day in the evening 5 MG - Active quetiapine 100 mg tablet take 1 tablet by oral route every day 100 MG - Active isosorbide mononitrate ER 120 mg tablet,extended release 24 hr take 1 tablet by oral route every day in the morning 120 MG - Active VITAMIN D3 (unknown strength) 50,000 units 2 times a week Not Available - Active metoprolol tartrate 25 mg tablet take 1 tablet by oral route every day 25 MG - No Longer Active Procedures Procedure Date Office/outpatient visit,jaison cruz 2017 EKG SYST BP = 140 MM HG6 IT DIAST BP = 90 MM HG Advance Directives Directive Yes / No Effective Date File Name No Information Encounters Encounter Description Practice Location Reason(s) For Visit Diagnoses Date Provider Providers Copied on Encounter Office/outpa tient visit,anthony, jaison [facility], [address] [place] [address], [id number], tel:[phone] [facility] Dyspnea (chief complaint)Ed dean (chief complaint)ne w patient consultation (chief complaint) Other cardiomyopat hyHTN (hypertensio n), benignDyslip idemiaClass 1 obesity due to excess calories with serious comorbidity and body mass index (BMI) of 34.0 to 34.9 in adultBody mass index (bmi) 34.0-34.9, adultTobacco abuseFamily history of premature coronary artery diseaseChron ic congestive heart failure, unspecified heart failure type 8 Ronald Huang. [address] [place] [address], [id number], . tel:[phone] Referring Provider: Sal Cardenas, [address] [place] [address], [id number]. tel:[phone] Family History Family Member Type Diagnosis Age At Onset Mother Problem (finding) coronary arterioscleros is Payers Payer name Insurance type Covered libertarian ID Authorwadea carolineabhi(s) Lonnie KRISTIAN [id number] Social History Type Description Quantity Date Captured Comments Alcohol Use Details No Caffeine Use Details coffee Tobacco Use Status Heavy cigarette smok er (20-39 cigs/day) Smoking Status Heavy tobacco smoker Smoking Tobacco Use Details Cigarette: No Details Available Cigarette: 1 Packs per day Sex Male Vital Signs Date / Time: Height Weight BMI Pulse Rate Blood Pressure Temperature Respiratory Rate Body Surface Area Head Circumference Head Circ. Percentile Wt./Morgan. Percentile BMI percentile Pulse Ox Inhaled Ox 9:18 AM 70.00 in 109.769 kg (242.00 lbs) 34.7 2 kg/m eter (2) 73 /min 152/100 mm[Hg] 94 % 9:18 AM 146/110 mm[Hg] Chief Complaint And Reason For Visit From encounter dated '08/03/2017 08:50'. Dyspnea (chief complaint) Edema (chief complaint) new patient consultation (chief complaint). Description: He reports recent extensive workup including rule out causes for heart failure. He reports that he was diagnosed with heart failure with severe cardiomyopathy, ejection fraction 30% and received recovered to about 48%. He reports that he headecho, stress test, heart cath all at outside institution with no records available to us today. He reports that he is doing fair. He continues to have elevated blood pressures despite taking medications and being compliant. He reports no limitations of activities of daily living at this time. He has intermittent swelling of the lower extremities as well as dyspnea on exertion which is slowly improving. He has current efforts to stop tobacco smoking. Reason For Referral Reason For Referral No Information Plan Of Treatment Date Type Action Status Goal Colonoscopy. Due on 018 due Goal FOBT. Due on due Goal Tdap. Due on due Goal Td vaccine. Due on 18 due Goal Sigmoidoscopy. Due on due Goal Flu Vaccine (18 to 64). Due on due Goal Lipid panel. Due on due Goal Colorectal cance r screen, stool DNA QuARTS with hemoglobin PETRONA. Due on due Goal Depression screening. Due on due Future Order: Lab Order Lipid Panel (LIPI D), Sent on: Sent Future Order: Lab Order Hepatic Panel (HEPATIC), Sent on: Sent History Of Present Illness Encounter Date Complaint History Of Jerome nt Illness new patient consultation He repo rts recent extensive workup including rule out causes for heart failure. He reports that he was diagnosed with heart failure with severe cardiomyopathy, ejection fraction 30% and received recovered to about 48%. He reports that he head echo, stress test, heart cath all at outside institution with no records available to us today. He reports that he is doing fair. He continues to have elevated blood pressures despite taking medications and being compliant. He reports no limitations of activities of daily living at this time. He has intermittent swelling of the lower extremities as well as dyspnea on exertion which is slowly improving. He has current efforts to stop tobacco smoking. Dyspnea Edema Functional Status Date Functional Assessmen t No Information Instructions Date Instruction Additional Infor mation No Information Assessments Type Assessment Date assessment Other cardiomyopathy assessment HTN (hypertension), benign assessment Dyslipidemia assessment Class 1 obesity due to excess calories with serious comorbidity and body mass index (BMI) of 34.0 to 34.9 in adult assessment Body mass index (bmi) 34.0-34.9, adult assessment Tobacco abuse assessment Family history of premature sharon nary artery disease assessment Chronic congestive h eart failure, unspecified heart failure type Patient Care Teams Name Effective Dates (start - stop) Status Members No Information
--- OUTSIDE RECORDS SUMMARY | 2024-03-27 05:45 | XMS_ITS ---
Author Organization [facility] Address [address] [place] [id number] Care Team Providers Care Chemical Sales Representative Name Role Phone Todd Alvarado Primary Care Provider [phone] Sera Allen Unavailable [phone] Allergies Allergen (clinical drug ingredient) Drug/Non Drug [...] 1.38 Performing Lab: Notes/Report: Test performed by [facility] , [address], [place] [address] Jez Martines MD, Cad Intern CLIA: [id number] Sodium 142 135-145 mmol/L Potassium 4.9 3.5-5.3 [...] 29 Performing Lab: Notes/Report: Test performed by [facility], Assignment Editor [address] [place] [address] , [address], [place] [address] Jez Martines MD, Cad Intern CLIA: [id number] Cholesterol 146 <200 mg/dL Triglycerides 378 <150 [...] Interpretation:normal Performing Lab: Notes/Report: Test performed by [facility] [address] [place] [address] [place] [address] Jez Martines MD, Cad Intern CLIA: [id number] PSA 0.98 <4.00 ng/mL Please note this is an ultrasensitive PSA assay with a lower limit of detection of 0.014 ng/mL. This test is performed by the [place] ECLIA methodology. Values obtained with different assay methods or kits cannot be directly compared. P-TSH reflex to FT4 Reviewed date:03/28/2024 02:02:50 PM Interpretation:normal Performing Lab: Notes/Report: Test performed by [facility] [address] [place] [address] [place] [address] Jez Martines MD, Cad Intern CLIA: [id number] TSH reflex to FT4 4.35 0.43-5.25 mU/L REASON FOR VISIT check up, Needs labs with PSA, colonoscopy due to positive cologuard, diabetic eye exam, & flu vaccine Medications Medication SIG (Take, Route, Frequency, Duration) Notes Start Date End Date Status Ariadna Aerosphere 160-9-4.8 MCG/ACT 2 puffs Inhalation Twice a day Active Droplet Pen [place] 32G X 4 MM USE DIRECTED for 90 Activ e Furosemide 40 MG 1/2 tab orally once a day Active Farxiga 10 MG 1 tab(s) orally once a day for 30 day(s) 07/05/2021 Active Omeprazole 40 MG 1 cap(s) Orally once daily for 90 days Active Albuterol Sulfate HFA 108 (90 Base) MCG/ACT 2 puff(s) inhaled every 6 hours Active Pen [place] 32G X 4 MM as directed 09/09/2022 [...] Encounter Location Date Provider Diagnosis [facility] 36 [facility] [address] [place] [id number] 03/27/2024 Sera Allen Essential hypertensi on I10 [...] test results, Reason: Provider Name:Sera Wall y, 08/30/2024 12:57:00 PM, [address] [facility] 36 [facility], [address], [place], [id number], Progress Notes * Leigh SANDOVALOB:[birth year] (58 yo M)Acc No.[id number]:03/27/2024 Progress Notes Patient: Milton ATKINS Provider: MARIANNA Starr :1965 A ge:58 Y S ex:Male Date:03/27/2024 Address:[facility] [place], [id number] Pcp:Todd Alvarado Subjective: * Chief Complaints: * [...] orally once a day , Taking Pen [place] 32G X 4 MM Miscellaneous as directed , Taking Metoprolol Succinate ER 50 MG Tablet Extended Release 24 Hour 1/2 tab orally once a day , Taking Farxiga 10 MG Tablet 1 tab(s) orally once a day , Taking Omeprazole 40 MG Capsule Delayed Release 1 cap(s) Orally once daily , Taking Droplet Pen [place] 32G X 4 MM Miscellaneous USE DIRECTED [...] toddxRylie Orellananey 08/15/2024 03:06:31 PM > not performedDesirae Calloway 08/16/2024 09:01:22 AM >please contact patient to see if Dr. Tate office ever contacted VelmaalinaGrecia 08/16/2024 10:51:14 AM > pt states he had went but they couldn't do it, so they were supposed to call to reschdule and never contacted IrmaDesirae akbar 08/16/2024 01:22:40 PM >order refaxed * Procedure Codes: G 2211 Complex e/[place] [address] CAPILLARY BLOOD DRAW, 43466 GLYCATED HEMOGLOBIN TEST, Modifiers: QW , 95016 CBC WITH AUTO DIFF, 56629 VENIPUNCT, ROUTINE* * Follow Up: v ia phone to report test results * Billing Information: * Visit Code: 25441 Office Visit, Est Pt., Level 4. * Procedure Codes: G2211 Complex e/[place]. [address] CAPILLARY BLOOD DRAW. 12254 GLYCATED HEMOGLOBIN TEST. Modifiers: QW 37825 CBC WITH AUTO DIFF. 91876 VENIPUNCT, ROUTINE*. * Electronic signature of MARIANNA Benito on 08/30/2024 at 01:39 PM EDT Sign off status: Pending * Provider: MARIANNA Starr Date: 0 03/27/2024 Generated for Jose Mariai ng/Rodney/eTransmitting on: 0 08/30/2024 01:39 PM EDT History and Physical Notes * HPI [...]
--- OUTSIDE RECORDS SUMMARY | 2024-04-18 07:00 | XMS_ITS ---
Author Organization [facility] Address [address] [place] [id number] Care Team Providers Care Questioned Documents Examiner Name Role Phone Todd Alvarado Primary Care Provider Sera Allen Unavailable [phone] Allergies Allergen (clinical drug ingredient) Drug/Non Drug [...] date:04/18/2024 03:11:07 PM Interpretation: Performing Lab: Notes/Report: Is patient a resident in a congregate care setting? No Date of Symptom onset Is patient currently in ICU? No Is patient currently hospitalized? No Is patient an [employer] employee? N Is the patient employed in healthcare? No Does the patient have COVID symptoms? No Is this the 1st COVID test for the patient? No No COVPCR Not Detected NotDetected Effective 11/10/20, [...] daily for 90 days Active Droplet [place] 32G X 4 MM USE DIRECTED for Activ e Furosemide 40 MG 1/2 tab orally once a day Active Breztri Aerosphere 160-9-4.8 MCG/ACT 2 puffs Inhalation Twice a day Active [place] 32G X 4 MM as directed 09/09/2022 [...] 04/18/2024 Encounters Encounter Location Date Provider Diagnosis [facility] [address] [facility] [address] [place] [id number] 04/18/2024 Sera Allen Acute URI J06.9 and [...] Name:Sera Wall y, 08/30/2024 12:57:00 PM, [address], [address], [place], [id number], Progress Notes * Leigh BASSETTOB:[birth year] (58 yo M)Acc No.[id number]:04/18/2024 Progress Notes Patient: Milton ATKINS Provider: MARIANNA Starr :1965 A ge:58 Y S ex:Male Date:04/18/2024 Address:[place], [id number] Pcp:Todd Alvarado Subjective: * Chief Complaints: * [...] orally once a day , Taking [place] 32G X 4 MM Miscellaneous as directed , Taking Metoprolol Succinate ER 50 MG Tablet Extended Release 24 Hour 1/2 tab orally once a day , Taking Farxiga 10 MG Tablet 1 tab(s) orally once a day , Taking Omeprazole 40 MG Capsule Delayed Release 1 cap(s) Orally once daily , Taking Droplet [place] 32G X 4 MM Miscellaneous USE DIRECTED [...] ranjana LAMAS - J06.9 (Primary) 2 . Mansi Galvan40 Plan: * Treatment: Value Reference Range [...] let patient know his CXR showed no pneumoniaMauraAmara kilpatrick 04/19/2024 11:52:43 AM > Pt informed Notes: Pt has a nebulizer at home and will start doing treatments 4 times a day.?? * Procedure Codes: [address] [place], [address] CAPILLARY BLOOD DRAW, 41101 CBC WITH AUTO DIFF, 23596 COVID TEST IN HOUSE, Modifiers: QW * Follow Up: v ia phone to report test results * Billing Information: * Visit Code: 79259 Office Visit, Est Pt., Level 3. * Procedure Codes: [address] [place]. [address] CAPILLARY BLOOD DRAW. 05631 CBC WITH AUTO DIFF. 74452 COVID TEST IN HOUSE. Modifiers: QW * Electronic signature of MARIANNA Benito on 08/30/2024 at 01:39 PM EDT Sign off status: Pending * Provider: MARIANNA Starr Date: 0 04/18/2024 Generated for Jose Mariai ng/Beckieg/eTransmitting on: 0 08/30/2024 01:39 PM EDT History [...]
--- OUTSIDE RECORDS SUMMARY | 2024-08-28 11:45 | XMS_ITS ---
Author Organization [facility] Address [address] [place] [id number] Care Team Providers Care School Psychology Professor Name Role Phone Todd Alvarado Primary Care Provider [phone] Sera Allen Unavailable [phone] Allergies Allergen (clinical drug ingredient) Drug/Non Drug [...] Interpretation:Normal Performing Lab: Notes/Report: Test performed by [facility] [address] [facility] , [address], [place] [address] Jez Martines MD, Pie Crust Mixer CLIA: [id number] Sodium 143 135-145 mmol/L Potassium 4.3 3.5-5.3 [...] 26 Performing Lab: Notes/Report: Test performed by [facility], [address] , [address], [place] [address] Jez Martines MD, Pie Crust Mixer CLIA: [id number] Cholesterol 94 <200 mg/dL Triglycerides 204 <150 [...] Interpretation:Normal Performing Lab: Notes/Report: Test performed by [facility] [address] [place], [place] [address] , [place] [address] Jez Martines MD, Pie Crust Mixer CLIA: [id number] TSH reflex to FT4 1.62 0.43-5.25 mU/L P-Microalbumin/Creatinine, R andom Urine Sample Reviewed date:08/30/2024 12:58:29 PM Interpretation:Normal Performing Lab: Notes/Report: Test performed by [facility] [address] [place] [address] , [place] [address] Jez Martines MD, Pie Crust Mixer CLIA: [id number] Albumin/Creatinine Ratio, Urine 4 0-30 ug/m g Microalbumin, Urine, Random 0.9 Creatinine, Urine 251.0 proBrain Natriuretic Peptide Reviewed date:08/30/2024 12:58:29 PM Interpretation:Normal Performing Lab: Notes/Report: Test performed by [facility], [address] , [address], [place] [address] Jez Martines MD, Pie Crust Mixer CLIA: [id number] proBrain Natriuretic Peptide 43 <300 pg/mL Please [...] Orally once daily for 90 days Active Furosemide 40 MG 2 tab orally once a day for 90 days Active Glimepiride 4 MG 1 tab(s) orally once a day for 90 days Active Tresiba FlexTouch 200 UNIT/ML 5 units subcutaneously once a day Active Accu-Chek Guide Test - TEST BLOOD SUGAR TWO TIMES DAILY DIRECTED for 90 Active Droplet Pen [place] 32G X 4 MM USE DIRECTED for Activ e Breztri Aerosphere 160-9-4.8 MCG/ACT 2 puffs Inhalation Twice a day Active Accu-Chek Guide - USE DIRECTED TO T EST TWO TIMES DAILY for 90 Active Klor-Con 10 10 MEQ TAKE 1 TABLET EVERY DAY for 90 Active metFORMIN HCl 500 MG 2 tab(s) orally 2 t imes a day for 90 days Active Losartan Potassium 100 MG 1/2 orally once a day Active Pen [place] 32G X 4 MM as directed 09/09/2022 Active Metoprolol Succinate ER 50 MG 1/2 tab orally once a day Active Albuterol Sulfate HFA 108 (90 Base) MCG/ACT 2 puff(s) inhaled every 6 hours Active Aspirin 81 MG 1 tab(s) orally once a day for 30 day(s) Active Rosuvastatin Calcium 20 MG [...] once a day for 30 day(s) Active Prasugrel HCl 10 MG as directed Orally Active Gabapentin 600 MG 4 tablet 2 tabs am 2 tabs pm Active Spironolactone 50 MG 1 tablet Orally Onc e a day Not-Taking Vital Signs Blood pressure systolic 150 mm Hg 08/29/19 25 Blood pressure diastolic 90 mm Hg 025 Heart Rate 87 /min 08/28/2024 Height 70 in 08/28/2024 Weight 262.6 lbs 08/28/2024 BMI 37.68 kg/m2 08/28/2024 Encounters Encounter [facility] Date [facility] [address] [id number] 08/28/2024 Sera Shookyeimi Intermittent diarrhe a R19.7 ; Type 2 diabetes mellitus without complication, without long-term current use of insulin E11.9 ; Lower extremity edema R60.0 ; Essential hypertension I10 ; Arteriosclerotic cardiovascular disease I25.10 ; Screening PSA (prostate specific antigen) Z12.5 and Mixed hyperlipidemia E78.2 Assessments Encounter Date Diagnosis (ICD Code) Assessment [...] Z12.5) 08/28/2024 Mixed hyperlipidemia (ICD-10 - E78.2) Plan Of Treatment Medication Medication Name Sig Start Date Stop Date Notes Tresiba FlexTouch 200 UNIT/ML 5 units subcutaneously once a day Treatment Notes Assessment Notes Intermittent diarrhea Patient has a c-sc ope scheduled. Pending Test Test Name Order Date P-BNP (Brain Natriuretic Peptide) 2024 Next Appt Details Follow Up: via phone to repo rt test results, Reason: Provider Name:Sera menezes, 08/30/2024 12:57:00 PM, [address], [address], [place], [place], [id number], Progress Notes * Leigh BASSETTOB:[birth year] (58 yo M)Acc No.[id number]:08/28/2024 Progress Notes Patient: Milton ATKINS Provider: MARIANNA Starr :1965 A ge:58 Y S ex:Male Date:08/28/2024 Address:[address] [place] [address] [facility] [facility], [facility] Pcp:Todd Alvarado Subjective: * Chief Complaints: * [...] Status: . Alcohol: no. * Medications: T hannahg Prasugrel HCl 10 MG Tablet as directed [...] orally once a day , Taking Pen [place] 32G X 4 MM Miscellaneous as directed , Taking Metoprolol Succinate ER 50 MG Tablet Extended Release 24 Hour 1/2 tab orally once a day , Taking Droplet Pen [place] 32G X 4 MM Miscellaneous USE DIRECTED [...] SR. Lungs: c lear to auscultation. Abdomen: b owel sounds present, soft and nontender. Neurologic Exam: I ntact, gait normal. Skin: n ormal, no rash. Peripheral pulses: n ormal (2+) bilaterally. Extremities: 1 + leg edema bilaterally. ? Assessment: * Assessment: 1. T ype 2 [...] 7 . M ixed hyperlipidemia - E78.2 Plan: * Treatment: Value Reference Range A [...] 119 100 - 400 * Kyung Lechuga Bee 08/28/2024 04 :49:35 PM EDT > Yvonne Lira 08/30/2024 12:58:17 PM EDT > See phone encounter Notes: Patient has a c-scope scheduled.??3.?Lower extremity edema?LAB: P-BNP (Brain Natriuretic Peptide)* Sera Allen 08/28/2024 0 4:11:16 PM EDT >room [facility] 4.?Essential hypertension?LAB: P-Comprehensive Metabolic Panel (CMP) (Collection [...] Natriuretic Peptide 43 <300 - pg/mL * [facility], IT support 08/30/2024 05:30:08 : This order was created by the Interface. Pankaj Yvonne 08/30/2024 12:58:17 PM EDT > See phone encounter * Procedure Codes: 8 5025 CBC WITH AUTO DIFF, 89046 VENIPUNCT, ROUTINE*, 19751 CAPILLARY BLOOD DRAW, 43332 GLYCATED HEMOGLOBIN TEST, Modifiers: QW * Follow Up: v ia phone to report test results * Billing Information: * Visit Code: 85444 Office Visit, Est Pt., Level 4. * Procedure Codes: 61297 CBC WITH AUTO DIFF. 87694 VENIPUNCT, ROUTINE*. 29811 CAPILLARY BLOOD DRAW. 09299 GLYCATED HEMOGLOBIN TEST. Modifiers: QW * Electronic signature of MARIANNA Benito on 08/30/2024 at 01:39 PM EDT Sign off status: Pending * Provider: MARIANNA Starr Date: 08/28/2024 Generated for Miguel ng/Farossg/eTransmitting on: 08/30/2024 01:39 PM EDT History and Physical Notes * Examination [...]
--- OUTSIDE RECORDS SUMMARY | 2024-08-30 13:40 | XMS_ITS | Clinical Summary ---
Author Organization [facility] Address [address] [place] [address] Phone Care Team Providers Care Armature Repairer Name Role Phone Unavailable Primary Care Provider Unavailabl e Allergies Active Allergy Reactions Criticality Noted Date Comments Hydrocodone-Acetaminophen Nausea And Vomiting Medium 0 05/10/2018 Medications * This document contains information received from the source organization and may not represent a complete record from that organization. vilazodone (VIIBRYD) 40 mg Oral TabletIndication s:Depression, unspecified depression type TAKE 1 TABLET EVERY DAY 90 Tablet 3 01/03/2024 Active QUEtiapine (SEROQUEL) 400 mg Oral TabletIndication s:Mood disorder Take 1 Tablet by mouth nightly. 90 Tablet 1 01/31/2024 Active lamoTRIgine (LAMICTAL) 200 mg Oral TabletIndication s:Mood disorder Take 1 Tablet by mouth 2 times daily. 180 Tablet 1 01/31/2024 Active LORazepam (ATIVAN) 0.5 mg Oral TabletIndication s:KRYS (generalized anxiety disorder) Take 1 Tablet by mouth every 8 hours as needed for Anxiety. 60 Tablet 3 01/31/2024 Active Active Problems Problem Noted Date Diagnosed Date Mood disorder 05/18/2020 Medical History Medical History Date Comments Hypertension Arthritis Social History Tobacco Use Types Packs/Day Years Used Date Smoking Tobacco: Former Smokeless Tobacco: Never Tobacco Cessation:Counseling Given: Yes Sex and Gender Information Value Date Recorded Sex Assigned at Not on file Legal Sex Male 1:16 PM EST Gender Identity Not on file Sexual Orientation Not on file Obstetrics History Last Filed Vital Signs Vital Sign Reading Time Taken Comments Blood Pressure 134/78 06/06/2018 11:42 AM EDT Pulse 88 06/06/2018 11:42 AM EDT Temperature 37 C (98.6 F) 06/06/2018 11:42 AM EDT Respiratory Rate - - Oxygen Saturation - - Inhaled Oxygen Concentration - - Weight 124.7 kg (275 lb) 06/18/2020 1:48 PM EDT Height 177.8 cm (5' 10 ) 06/18/2020 1:48 PM EDT Body Mass Index 39.46 06/18/2020 1:48 PM EDT Plan of Treatment Health Maintenance Due Date Last Done Comments Wellness Exam Medicare 1968 Hepatitis B Vaccine (1 of 3 - 19+ 3-dose series) 1985 DTaP/TDaP/Td (1 - Tdap) 05/24/1996 05/23/1996 Cologuard 11/30/2011 Colon Cancer Screening 11/30/2011 Colonoscopy 11/30/2011 FIT 11/30/2011 Sigmoidoscopy 11/30/2011 Virtual Colonography 11/30/2011 Zoster (1 of 2) 2016 COVID-19 Vaccine (1 - 2023-2 5 season) 2023 Pneumococcal Vaccine 50+ (2 of 2 - PCV) 01/13/2024 01/12/2023 Influenza Vaccine (Season Ended) 2024 Meningococcal B Vaccine Aged Out No l onger eligible based on patient's age to complete this topic Insurance [employer] MEDICARE HMO [place] AN[employer]M MEDICARE ADVANTAGE MR
--- OUTSIDE RECORDS SUMMARY | 2024-08-30 13:40 | XMS_ITS | Patient Health Record ---
[facility] Address [address] [place] [id number] Care Team Providers Care Diesel Bus Mechanic Name Role Phone Todd Alvarado Primary Care Provider Sera Allen Unavailable [phone] Allergies Allergen (clinical drug ingredient) Drug/Non Drug [...] 1.38 Performing Lab: Notes/Report: Test performed by [facility] [facility] , [address], [place] [address] Jez Martines MD, Handle Assembler CLIA: [id number] Sodium 142 135-145 mmol/L Potassium 4.9 3.5-5.3 [...] 29 Performing Lab: Notes/Report: Test performed by [email or web address], [address] , [address], [place] [address] Jez Martines MD, Handle Assembler CLIA: [id number] Cholesterol 146 <200 mg/dL Triglycerides 378 <150 [...] Interpretation:normal Performing Lab: Notes/Report: Test performed by [facility] [address] [place] [address] [place] [address] Jez Martines MD, Handle Assembler CLIA: [id number] PSA 0.98 <4.00 ng/mL Please note this is an ultrasensitive PSA assay with a lower limit of detection of 0.014 ng/mL. This test is performed by the [employer] ECLIA methodology. Values obtained with different assay methods or kits cannot be directly compared. P-TSH reflex to FT4 Reviewed date:03/28/2024 02:02:50 PM Interpretation:normal Performing Lab: Notes/Report: Test performed by [facility] [address] [place] [address] [place] [address] Jez Martines MD, Handle Assembler CLIA: [id number] TSH reflex to FT4 4.35 0.43-5.25 mU/L CBC Fingerstick (in house) Reviewed date:04/18/2024 11:40:36 [...] employed in healthcare? No Is patient an [facility] employee? N Is patient currently hospitalized? [...] date:04/19/2024 11:52:53 AM Interpretation: Performing Lab: Notes/Report: CBC Venipuncture (in house) Reviewed date:08/30/2024 12:58:29 [...] Interpretation:Normal Performing Lab: Notes/Report: Test performed by [facility] [address] [place] [address] , [address], [place] [address] Jez Martines MD, Handle Assembler CLIA: [id number] Sodium 143 135-145 mmol/L Potassium 4.3 3.5-5.3 [...] 26 Performing Lab: Notes/Report: Test performed by [facility] [address] [place] [address] , [address], [place] [address] Jez Martines MD, Handle Assembler CLIA: [id number] Cholesterol 94 <200 mg/dL Triglycerides 204 <150 [...] Interpretation:Normal Performing Lab: Notes/Report: Test performed by [facility] [address] , [address], [place] [address] Jez Martines MD, Handle Assembler CLIA: [id number] TSH reflex to FT4 1.62 0.43-5.25 mU/L P-Microalbumin/Creatinine, R andom Urine Sample Reviewed date:08/30/2024 12:58:29 PM Interpretation:Normal Performing Lab: Notes/Report: Test performed by [email or web address], [address] , [address], [place] [address] Jez Martines MD, Handle Assembler CLIA: [id number] Albumin/Creatinine Ratio, Urine 4 0-30 ug/mg Microalbumin, Urine, Random 0.9 Creatinine, Urine 251.0 [facility] Natriuretic Peptide Reviewed date:08/30/2024 12:58:29 PM Interpretation:Normal Performing Lab: Notes/Report: Test performed by [facility] [address] , [address], [place] [id number] Jez Martines MD, Handle Assembler CLIA: [id number] [facility] Natriuretic Peptide 43 <300 pg/mL Please note the updated reference range values which are stratified by age. Positive >900 pg/mL Indeterminate 300-900 pg/mL Negative <300 pg/mL Medications Medication SIG (Take, Route, Frequency, Duration) Notes Start Date End Date Status Omeprazole 40 MG 1 cap(s) Orally once daily for 90 days Active Losartan Potassium 100 MG 1/2 orally once a day Active Furosemide 40 MG 2 tab orally once a day for 90 days Active Prasugrel HCl 10 MG as directed Orally Active Pen [employer] 32G X 4 MM as directed 09/09/2022 Active Glimepiride 4 MG 1 tab(s) orally once a day for 90 days Active Tresiba FlexTouch 200 UNIT/ML 5 units subcutaneously once a day Active Gabapentin 600 MG 4 tablet 2 tabs am 2 tabs pm Active Metoprolol Succinate ER 50 MG 1/2 tab orally once a day Active Spironolactone 50 MG 1 tablet Orally Onc e a day Not-Taking Droplet Pen [employer] 32G X 4 MM USE DIRECTED for 90 Activ e Rosuvastatin Calcium 20 MG 1 tablet Orally Once a day Active Breztri Aerosphere 160-9-4.8 MCG/ACT 2 puffs Inhalation Twice a day Active lamoTRIgine 200 MG 1 tab(s) orally 2 ti mes a day Active Viibryd 40 MG 1 tab(s) orally q AM Active Accu-Chek Guide - USE DIRECTED TO T EST TWO TIMES DAILY for 90 Active QUEtiapine Fumarate ER 150 MG 1 tab(s) orally once a day (in the evening) for 30 day(s) Active Klor-Con 10 10 MEQ TAKE 1 TABLET EVERY DAY for 90 Active Venlafaxine HCl ER 37.5 MG 1 cap(s) orally once a day for 30 day(s) Active metFORMIN HCl 500 MG 2 tab(s) orally 2 t imes a day for 90 days Active Albuterol Sulfate HFA 108 (90 Base) MCG/ACT 2 puff(s) inhaled every 6 hours Active Accu-Chek Guide Test - TEST BLOOD SUGAR TWO TIMES DAILY DIRECTED for 90 Active Aspirin 81 MG 1 tab(s) orally once a day for 30 day(s) Active Immunizations Vaccine Route Administration Date Status Comme nts DT, 7 YEARS OR OLDER Unknown 05/23/1996 Administered PNEUMOVAX 23 VACCINE IM Intramuscular 01/12/2023 Administe red Problems Problem Type SNOMED Code ICD Code Onset Dates Problem Status W/U Status Risk Notes Problem 42766945 Hyperglycemia (R73.9) Active confirmed Problem 69830271 Essential hypertension (I10) Active confirmed Problem 32295210 Onychogryposis (L60.2) Active confirmed Problem 98885958 Type 2 diabetes mellitus with other specified complication (E11.69) Active confirmed Problem 128314400 Mixed hyperlipidemia (E78.2) Active confirmed Problem 43322825 Simple chronic bronchitis (J41.0) Active confirmed Problem 058944680 Onychomycosis (B35.1) Active confirmed Problem 99377410 Arteriosclerotic cardiovascular disease (I25.10) Active confirmed Problem 400016991 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) Active confirmed Problem 455900969 Pneumonia of bot h lower lobes due to infectious organism (J18.9) Active confirmed Problem 46114280 Type 2 diabetes mellitus with hyperglycemia, without long-term current use of insulin (E11.65) Active confirmed Problem 19092484 Stasis dermatiti s of both legs (I87.2) Active confirmed Problem Obese class II (071470773006733) Adult BMI 35.0-35.9 kg/sq m (Z68.35) Active confirmed Problem 155707393602364 Type 2 diabetes mellitus with hyperglycemia, unspecified whether rehab nursing tech insulin use (E11.65) Active confirmed Problem Plain X-ray of chest abnormal (finding) (6064129415) Abnormal chest x-ray (R93.89) Active confirmed Problem 9019564 Diastolic dysfunction (I51.89) Active confirmed Problem 678176340 Gastroesophageal reflux disease, unspecified whether esophagitis present (K21.9) Active confirmed Problem 213615479 Stasis dermatiti s of lower extremity due to chronic peripheral vascular hypertension (I87.329) Active confirmed Vital Signs Heart Rate 87 /min 08/28/2024 Blood pressure diastolic 90 mm Hg 08/28/2024 Height 70 in 08/28/2024 Blood pressure systolic 150 mm Hg 08/28/2024 Weight 262.6 lbs 08/28/2024 BMI 37.68 kg/m2 08/28/2024 Encounters Encounter Location Date Provider Diagnosis [facility] [address] [facility] [address], [place] [id number] 03/27/2024 Sera Allen Essential hypertensi on I10 ; Arteriosclerotic cardiovascular disease I25.10 ; Type 2 diabetes mellitus with other specified complication E11.69 ; Mixed hyperlipidemia E78.2 ; Screening PSA (prostate specific antigen) Z12.5 and Encounter for screening colonoscopy Z12.11 [facility] [address], [place] [id number] 04/18/2024 Sera Allen Acute URI J06.9 and Bronchitis J40 [facility] [address] [facility] [address] [place], [place] [id number] 08/28/2024 Sera Allen Intermittent diarrhe a R19.7 ; Type 2 diabetes mellitus without complication, without long-term current use of insulin E11.9 ; Lower extremity edema R60.0 ; Essential hypertension I10 ; Arteriosclerotic cardiovascular disease I25.10 ; Screening PSA (prostate specific antigen) Z12.5 and Mixed hyperlipidemia E78.2 [facility] [address] [facility] [address] [place], [place] [id number] 08/30/2024 Sera Allen [facility] [place] [address] [place], [place] [id number] 03/28/2024 Sera Allen [facility] [place] [address] [place], [place] [id number] 04/18/2024 Sera Allen [facility] [place] [address] [place], [place] [id number] 05/08/2024 Todd [place] Gastroesophageal ref lux disease, unspecified whether esophagitis present K21.9 [facility] [place] [address] [place] [id number] 07/26/2024 Todd [place] Lower extremity clifford a R60.0 [facility] [address] [place] [id number] 08/09/2024 Otdd [place] Assessments Encounter Date Diagnosis (ICD Code) Assessment Notes Treatment Notes Treatment Clinical Notes Section Notes 03/27/2024 Essential hypertension (ICD-10 - I10) 03/27/2024 Arteriosclerotic cardiovascular disease (ICD-10 - I25.10) 04/18/2024 Bronchitis (ICD-10 - J40) Pt has a nebulizer at home and will start doing treatments 4 times a day. 04/18/2024 Acute URI (ICD-10 - J06.9) Patient has cough medication at home. 05/08/2024 Gastroesophageal reflux disease, unspecified whether esophagitis present (ICD-10 - K21.9) 07/26/2024 Lower extremity edema (ICD-10 - R60.0) 08/28/2024 Type 2 diabetes mellitus without complication, without long-term current use of insulin (ICD-10 - E11.9) 08/28/2024 Intermittent diarrhea (ICD-10 - R19.7) Patient has a c-scope scheduled. 08/28/2024 Lower extremity edema (ICD-10 - R60.0) 03/27/2024 Type 2 diabetes mellitus with other specified complication (ICD-10 - E11.69) 03/27/2024 Mixed hyperlipidemia (ICD-10 - E78.2) 08/28/2024 Essential hypertension (ICD-10 - I10) 08/28/2024 Arteriosclerotic cardiovascular disease (ICD-10 - I25.10) 03/27/2024 Screening PSA (prostate specific antigen) (ICD-10 - Z12.5) 08/28/2024 Screening PSA (prostate specific antigen) (ICD-10 - Z12.5) 03/27/2024 Encounter for screening colonoscopy (ICD-10 - Z12.11) 08/28/2024 Mixed hyperlipidemia (ICD-10 - E78.2) 03/27/2024 Other Plan Of Treatment Pending Test Test Name Order Date colonoscopy 08/09/2022 colonoscopy 03/27/2024 LC-Comp. Metabolic Panel (14) 11/25/2020 P-BNP (Brain Natriuretic Peptide) 2024 Next Appt Details Provider Name:Sera menezes, 08/30/2024 12:57:00 PM, [address], [address], [place], [place], [id number], Insurance Providers Payer Name Payer Address Payer Phone Subscriber Number Group Number Insured Name Patient Relationship to Insured Coverage Start Date Coverage End Date [employer] [address] [place] [address] [id number] Milton Kohler Self - patient is the insured [employer] [address] [place] [address] [id number] Milton Kohler Self - patient is the insured Medical (General) History Medical History History ICD Code COPD enlarged heart HBP Depression, bipolar Arthritis T2DM Surgical History Surgery Date(Month/Year) Bilateral Knee 07/2006 Nerve Stimulator Knee x6 Back Hospitalization History Reason Date(Month/Year)
--- OUTSIDE RECORDS SUMMARY | 2024-08-30 13:40 | XMS_ITS ---
Author Organization Unknown Medications Date Medication Dosage DosageUnit StartDate StopDate StopReason Active DoseQuantity DoseUnit Dispense DispenseUnit Refills NdcCode DrugCode PharmacyId IsPrescription MappedMedication Srcstatus 07/26 00:00 :00 Furosemide 40 MG Tablet 1 45 0 [id number] 925 P Unknown Status 08/09 00:00 :00 Glimepiride 4 MG Tablet 1 90 Tablet 1 1 [id number] 501 P Unknown Status
--- OUTSIDE RECORDS SUMMARY | 2024-08-30 13:40 | XMS_ITS | Clinical Summary ---
Author Organization [facility] Address [address] [place] [address] Care Team Providers Care Annual Giving Director Name Role Phone Maged Sharma MD Primary Care Provider Family History Medical History Relation Name Comments Conversions - Other Father Patient' s mother is Conversions - Other Mother Patient' s mother is Relation Name Status Comments Father Mother Social History Tobacco Use Types Packs/Day Years Used Date Smoking Tobacco: Every Day Alcohol Use Standard Drinks/Week Comments No 0 (1 standard drink = 0.6 oz pur e alcohol) Sex and Gender Information Value Date Recorded Sex Assigned at Not on file Legal Sex Male 6:51 PM EDT Gender Identity Not on file Sexual Orientation Not on file Last Filed Vital Signs Vital Sign Reading Time Taken Comments Blood Pressure 141/84 05/09/2019 10:04 AM EST Pulse 87 05/09/2019 10:04 AM EST Temperature 36.4 C (97.6 F) 05/09/2019 10:04 AM EST Respiratory Rate 16 05/09/2019 10:04 AM EST Oxygen Saturation - - Inhaled Oxygen Concentration - - Weight 121 kg (267 lb 2.1 oz) 05/09/2019 10:04 A M EST Height 177.8 cm (5' 10 ) 05/09/2019 10:04 AM EST Body Mass Index 38.33 05/09/2019 10:04 AM EST Plan of Treatment Upcoming Encounters Date Type Department Care Team (Late st Contact Info) Description 10/18/2024 12:20 PM EDT [facility] [address] [place] [phone] Guillaume Reeves MD [address] [place] [id number] Health Maintenance Due Date Last Done Comments [facility]-Depression Screening 1965 [facility]-HIV Screening 1965 [facility]-Hepatitis C Screening 1965 [facility]-Medicare Annual Wellness (AWV) 1965 [facility]-Infant/Child/Adol SDOH Screenings 1965 [facility]- SDOH Screenings 1984 [facility]-Adult SDOH Screenings 1984 [facility]-Hepatitis B Vaccines (1 of 3 - 19+ 3-dose series) 1985 [facility]-DTaP,Tdap,and Td Vaccine s (1 - Tdap) 05/24/1996 05/23/1996 CT Colonography 11/30/2011 Colonoscopy 11/30/2011 FIT-DNA 11/30/2011 FIT 11/30/2011 FOBT 11/30/2011 Sigmoidoscopy 11/30/2011 [facility]-Colorectal Cancer Screening 11/30/2011 [facility]-Zoster Vaccines (1 of 2) 2016 [id number] Vaccine (1 - 20 24-25 season) 2023 [facility]-Pneumococcal Vaccine: 50 + Years (2 of 2 - PCV) 01/13/2024 01/12/2023 [facility]-Influenza Vaccine (Seas[place] n Ended) 2024 HPV Vaccines Aged Out No longer eligi ble based on patient's age to complete this topic [facility]-HIB Vaccines Aged Out No longer e ligible based on patient's age to complete this topic [facility]-Hepatitis A Vaccines Aged Out No longer eligible based on patient's age to complete this topic [facility]-IPV Vaccines Aged Out No longer e ligible based on patient's age to complete this topic [facility]-Rotavirus Vaccines Aged Out No lo nger eligible based on patient's age to complete this topic Insurance [place] [id number] JAVIER MEDICARE Care Teams Annual Giving Director Relationship Specialty Start Date End Date Maged Sharma MD [address] [place] [address] PCP - General 07/31/20
[2024-08-30 13:54] VITALS: BP 146/92; PULSE 84; RESP 18; O2SAT 94; BMI 35.2
--- NOTE | 2024-08-30 14:00 | EXP.PAIN.SOA ---
[facility] Disclaimer: The information contained in this section may have been updated after the patient was seen, as this information can be updated by other users. Medical History Pre-op exam Abnormal findings on diagnostic imaging of heart and coronary circulation Sleep apnea Nocturnal hypoxemia Chronic hypoxemic respiratory failure COPD (chronic obstructive pulmonary disease) Screening for lung cancer Pulmonary emphysema Smoking greater than 30 pack years Tobacco abuse disorder Dyspnea on exertion Tobacco abuse counseling Elevated left ventricular end-diastolic pressure (LVEDP) Sinus tachycardia Gastroesophageal reflux disease Dyspnea Edema HLD (hyperlipidemia) HHD (hypertensive heart disease) Non-ischemic cardiomyopathy CAD (coronary artery disease) NYHA class 3 heart failure with reduced ejection fraction NYHA class 3 acute on chronic systolic heart failure Other forms of angina pectoris Surgical History Status post insertion of nerve stimulator Hx of cervical spine surgery History of arthroscopic knee surgery Family History Other Family history of cancer Family history of coronary artery disease Family history of diabetes mellitus Social History Smoking Status: Current every day smoker tobacco type: cigarettes packs per day: 1 alcohol intake: never substance use type: denies use current occupational status: other Travel in the last 8 weeks?: None household members: spouse housing: house lives independently: No marital status: education level: high school service: No fci: No current occupational exposures/hazards: No caffeine: Yes special deneen needs: No agree to transfusion: No do you feel safe at home: Yes victim of physical abuse: No victim of emotional abuse: No victim of sexual abuse: No would you like helpful sources: No Have you lived/traveled outside US in past 30 days?: No Contact w/someone who lives/traveled outside US past 30 days?: No Exposure to someone with infectious disease in past 14 days?: No Do you have a fever (greater than 100.4 F or 38 C)?: No Have you tested positive for COVID-19?: No Exposed to someone with COVID-19 in past 14 days?: No Do you have a sore throat?: No Do you have a cough?: No Do you have any weakness?: No Do you have any diarrhea?: No Are you experiencing any unusual bleeding?: No Do you have any muscle aches/pain?: No Do you have any abdominal pain?: No Are you experiencing loss of taste or smell?: No PM Subjective & Objective Subjective Subjective:: Patient is a pleasant 58-year-old male who presents today for medication refill and 3-month follow-up. He rates his pain today as 7 out of 10. Patient states he is just having more pain all over including his knees and his back. Patient is currently managed with gabapentin 800 mg 4 times a day and methocarbamol 750 mg from our office. He denies any side effects. His Ancelmo has been reviewed and is appropriate. Review of Systems: General: No recent weight changes, no fever, no sleep disturbances Respiratory: No cough, no shortness of air, no recurring pulmonary infections Cardiovascular/peripheral vascular: No chest pain, no palpitations, no edema, no shortness of breath Gastrointestinal: No new onset incontinence, normal bowel movements reported Genitourinary: No new onset incontinence Musculoskeletal: Chronic back pain, knee pain Psychiatric: [Normal mood/affect] Neurological: [Denies weakness in extremities], [denies balance issues] Pain at rest (0-10 scale): 7 Objective Objective:: Physical Exam: General: Alert and oriented x3, no acute distress, pleasant and cooperative Lungs: Respirations even and unlabored, symmetrical chest expansion Eyes: PERRL Musculoskeletal: Flexion and extension of lumbar [spine] somewhat guarded secondary to pain, [antalgic gait noted] Neurological: Speech clear, no gross sensory deficit Has patient had previous pain injection?: No Conservative treatment options previously tried: Prescription medications Length of treatment: Longer than 12 weeks Meds Home Medications and Allergies Home Medications ?Medication ?Instructions ?Recorded ?Confirmed ?Type potassium chloride 10 mEq 10 meq PO DAILY Supplement 07/23/20 08/30/24 History tablet,extended release quetiapine 200 mg tablet (Seroquel) 450 mg PO QDAY Insomnia 07/22/21 08/30/24 History nitroglycerin 0.4 mg sublingual 0.4 mg sublingual Q5M PRN chest 05/20/22 08/30/24 Rx tablet (Nitrostat) pain #20 tabs aspirin 81 mg tablet,delayed 81 mg PO DAILY Blood thinner 05/23/22 08/30/24 History release (Adult Aspirin Regimen) furosemide 40 mg tablet 20 mg PO DAILY FLUID 09/05/22 08/30/24 History insulin degludec 200 unit/mL (3 10 unit SQ DAILY . 09/05/22 08/30/24 History mL) subcutaneous pen (Tresiba FlexTouch U-200 insulin) ipratropium 0.5 mg-albuterol 3 mg 3 ml inhalation QID PRN shortness 09/13/22 08/30/24 Rx (2.5 mg base)/3 mL nebulization of breath or wheezing 90 days #270 soln mL tiotropium 2.5 mcg-olodaterol 2.5 2 puff inhalation DAILY Breathing 09/28/22 08/30/24 History mcg/actuation mist for inhalation Problems (Stiolto Respimat) rosuvastatin 20 mg tablet 20 mg PO DAILY Cholesterol #90 tabs 05/31/23 08/30/24 Rx albuterol sulfate 90 mcg/actuation See Rx Instructions .Route 08/28/23 08/30/24 Rx aerosol inhaler .COMPLEX #1 ea glimepiride 4 mg tablet 4 mg PO DAILY 10/05/23 08/30/24 History lamotrigine 200 mg tablet 200 mg PO BID 10/05/23 08/30/24 History metformin 500 mg tablet 1,000 mg PO BID 10/05/23 08/30/24 History Held on 05/13/24. Instructions: Resume on 05/16/24. HOLD FOR 2 DAYS vilazodone 40 mg tablet 40 mg PO DAILY 10/05/23 08/30/24 History metoprolol succinate 50 mg See Rx Instructions .Route 01/22/24 08/30/24 Rx tablet,extended release 24 hr .COMPLEX #90 tabs losartan 100 mg tablet 100 mg PO DAILY BLOOD PRESSURE #90 02/19/24 08/30/24 Rx tabs omeprazole 40 mg capsule,delayed 40 mg PO DAILY GERD #90 caps 04/11/24 08/30/24 Rx release prasugrel HCl 10 mg tablet 10 mg PO DAILY #30 tabs 05/20/24 08/30/24 Rx (Effient) gabapentin 800 mg tablet 800 mg PO TID #270 tabs 05/30/24 08/30/24 Rx (Neurontin) methocarbamol 750 mg tablet 750 mg PO BID #180 tabs 05/30/24 08/30/24 Rx sodium sul 1.479 gram-potas ch See Rx Instructions PO PER PKG DIR 06/26/24 08/30/24 Rx 0.188 gram-magnes sul 0.225 gram colonscopy #24 tabs tablet (Sutab) sodium,potassium,mag sulfates 17.5 See Rx Instructions PO .COMPLEX 07/03/24 08/30/24 Rx gram-3.13 gram-1.6 gram oral soln #354 mL (Suprep Bowel Prep Kit) New Prescriptions to Start Prescriptions: Allergies Allergy/AdvReac Type Severity Reaction Status Date / Time hydrocodone (From VICODIN) Allergy Unknown itching Verified 07/03/24 08:44 Assessment and Plan *Assessment and plan (1) Degenerative disc disease: Status: Chronic Qualifiers: Spinal region: mid-cervical Mid-cervical spinal level: unspecified Qualified Code(s): M50.320 - Other cervical disc degeneration, mid-cervical region, unspecified level Category: Medical (2) Lumbar radiculopathy: Status: Acute Category: Medical Code(s): M54.16 - Radiculopathy, lumbar region Plan I will refill the patient's methocarbamol and gabapentin and provide a 3-month supply of these medications. Patient will return to clinic in 3 months for reevaluation of symptoms and plan of care. Patient has been instructed to contact the clinic with any concerns before the next appointment. Dr. Anne has reviewed this note and agrees with this plan of care. This note was dictated using voice recognition software and make contain errors or omissions. All injections are used with Lidocaine, Bupivacaine and dexamethasone. Occasionally urine drug screen is needed to verify patient's compliance with our office pain contract. This is ordered based off specific treatments related to chronic pain with the potential to abuse certain medications.
== END 2024-08-30 23:59 | disposition home or self-care (01) ==
PROVIDERS: PCP Physician Assistant; Visit Provider Nurse Practitioner Family
DX: M50.320 Other cervical disc degeneration, mid-cervical region, unspecified level (principal); M54.16 Radiculopathy, lumbar region; Z79.899 Other long term (current) drug therapy
CPT/HCPCS: 99212; G0463

== ENCOUNTER 2024-09-09 06:44 | Outpatient (CLI) | payer MEDICARE, SELFPAY ==
--- OUTSIDE RECORDS SUMMARY | 2017-08-03 04:50 | XMS_ITS | Continuity of Care Document ---
Author Organization [facility] Address [address] [address] Phone Care Team Providers Care Family Day Carer Name Role Phone Ronald NANCE Sal ROSADO [...] Copied on Encounter Office/outpa tient visit,anthony, jaison [facility], [address] [place] [address], [id number], tel:[phone] [facility] Dyspnea (chief complaint)Ed dean [...] unspecified heart failure type 8 Ronald Huang. [address] [place] [address], [id number], . tel:[phone] Referring Provider: Sal Cardenas, [address] [place] [address], [id number]. tel:[phone] Family History Family Member Type Diagnosis Age At Onset Mother Problem (finding) coronary arterioscleros is Payers Payer name Insurance type Covered libertarian ID Authorwadea carolineabhi(s) Lonnie KRISTIAN [id number] Social History Type Description Quantity Date Captured [...]
--- OUTSIDE RECORDS SUMMARY | 2024-03-27 05:45 | XMS_ITS ---
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 Name Role Phone Todd Alvarado Primary Care Provider [phone] Sera Allen Unavailable [phone] Allergies Allergen (clinical drug ingredient) Drug/Non Drug Allergy documented on EMR Reaction Allergy Type Onset Date Status acetaminophen / hydrocodone HYDROcodone-Acetamino phen Unknown Drug Allergy Active Results Component Value Reference Range Notes CBC Venipuncture (in house) Reviewed date:03/27/2024 11:11:56 AM Interpretation:Normal Performing Lab: Notes/Report: Normal wbc 8.3 3.5 - 10 lymph 20.9 15 - 50 mid 5.9 2 - 15 gran 73.2 35 - 80 rbc 5.72 3.5 - 5.5 hgb 16.5 11.5 - 16.5 hct 50.6 35 - 55 mcv 88.3 75 - 100 mch 28.9 25 - 35 mchc 32.7 31 - 38 platlet 133 100 - 400 Glycohemoglobin A1c (in hous e) Reviewed date:03/28/2024 02:02:50 PM Interpretation:5.9% Performing Lab: Notes/Report: 5.9% glycohemoglobin 5.9% 5 - 6.5 % P-Comprehensive Metabolic Pa jesika (CMP) Reviewed date:03/28/2024 02:02:50 PM Interpretation:Glucose 142, Cr 1.38 Performing Lab: Notes/Report: Test performed by [facility] , [address], [place] [address] Jez Martines MD, [place] CLIA: [id number] Sodium 142 135-145 mmol/L Potassium 4.9 3.5-5.3 mmol/L Chloride 99 97-108 mmol/L CO2 29 22-32 mmol/L Glucose 142 65-99 mg/dL BUN 14 6-20 mg/dL Creatinine 1.38 0.70-1.30 mg/dL Calcium 10.3 8.6-10.4 mg/dL eGFR by Creatinine 60 >59 mL/min/1.73m2 Protein 7.6 6.0-8.3 g/dL Albumin 4.4 3.5-5.3 g/dL Alkaline Phosphatase 66 40-129 IU/L ALT (SGPT) 21 <5-55 IU/L AST (SGOT) 18 <5-46 IU/L Bilirubin, Total 0.3 <0.2-1.2 mg/dL A/G Ratio 1.4 1.1-2.5 P-Lipid Panel Reviewed date:03/28/2024 02:02:50 PM Interpretation:TG's 378, HDL 29 Performing Lab: Notes/Report: Test performed by [facility] [address] [place] [address] , [address], [place] [address] Jez Martines MD, [place] CLIA: [id number] Cholesterol 146 <200 mg/dL Triglycerides 378 <150 mg/dL HDL Cholesterol 29 >39 mg/dL Cholesterol / HDL Ratio 5.03 0.00-4.99 Ratio Non-HDL Cholesterol 117 <130 mg/dL LDL Cholesterol (Calculation) 41 <130 mg/dL LDL Cholesterol Levels* Less than 100 mg/dL Optimal 100 to 129 mg/dL Near Optimal/ Above Optimal 130 to 159 mg/dL Borderline High 160 to 189 mg/dL High 190 mg/dL and above Very High * Categories as recommended by the 2004 ATPIII guidelines LDL/HDL Ratio 1.4 <3.3 Ratio LDL Cholesterol Patient History Test Date: 07/12/2023 LDL Results: 53 Units: mg/dL % Change: - Test Date: 03/27/2024 LDL Results: 41 Units: mg/dL % Change: -22% P-PSA Reviewed date:03/28/2024 02:02:50 PM Interpretation:normal Performing Lab: Notes/Report: Test performed by [facility] [address] [place] [address] [place] [address] Jez Martines MD, [place] CLIA: [id number] PSA 0.98 <4.00 ng/mL Please note this is an ultrasensitive PSA assay with a lower limit of detection of 0.014 ng/mL. This test is performed by the [employer] ECLIA methodology. Values obtained with different assay methods or kits cannot be directly compared. P-TSH reflex to FT4 Reviewed date:03/28/2024 02:02:50 PM Interpretation:normal Performing Lab: Notes/Report: Test performed by [facility] [address] [place] [address] [place] [address] Jez Martines MD, [place] CLIA: [id number] TSH reflex to FT4 4.35 0.43-5.25 mU/L REASON FOR VISIT check up, Needs labs with PSA, colonoscopy due to positive cologuard, diabetic eye exam, & flu vaccine Medications Medication SIG (Take, Route, Frequency, Duration) Notes Start Date End Date Status Ariadna Aerosphere 160-9-4.8 MCG/ACT 2 puffs Inhalation Twice a day Active Droplet Pen Roark 32G X 4 MM USE DIRECTED for 90 Activ e Furosemide 40 MG 1/2 tab orally once a day Active Farxiga 10 MG 1 tab(s) orally once a day for 30 day(s) 07/05/2021 Active Omeprazole 40 MG 1 cap(s) Orally once daily for 90 days Active Albuterol Sulfate HFA 108 (90 Base) MCG/ACT 2 puff(s) inhaled every 6 hours Active Pen Roark 32G X 4 MM as directed 09/09/2022 Active Metoprolol Succinate ER 50 MG 1/2 tab orally once a day Active Aspirin 81 MG 1 tab(s) orally once a day for 30 day(s) Active Losartan Potassium 100 MG 1/2 orally once a day Active QUEtiapine Fumarate ER 150 MG 1 tab(s) orally once a day (in the evening) for 30 day(s) Active Venlafaxine HCl ER 37.5 MG 1 cap(s) orally once a day for 30 day(s) Active lamoTRIgine 200 MG 1 tab(s) orally 2 ti mes a day Active Viibryd 40 MG 1 tab(s) orally q AM Active Rosuvastatin Calcium 20 MG 1 tablet Orally Once a day Active Gabapentin 600 MG 4 tablet 2 tabs am 2 tabs pm Active Accu-Chek Guide Test - TEST BLOOD SUGAR TWO TIMES DAILY DIRECTED for 90 Active Spironolactone 50 MG 1 tablet Orally Onc e a day Active Promethazine-DM 6.25-15 MG/5ML 5 ml orally every 6 hours, prn 08/04/2022 Not-Taking Jardiance 10 MG 1 tab(s) orally once a day (in the morning) 06/28/2021 Not-Taking Tresiba FlexTouch 200 UNIT/ML 10 units subcutaneously once a day Active Accu-Chek Guide - USE DIRECTED TO T EST TWO TIMES DAILY for 90 Active metFORMIN HCl 500 MG 2 tab(s) orally 2 t imes a day for 90 days Active Klor-Con 10 10 MEQ TAKE 1 TABLET EVERY DAY for 90 Active Glimepiride 4 MG 1 tab(s) orally once a day for 90 days Active Vital Signs Blood pressure systolic 128 mm Hg 03/27/19 25 Blood pressure diastolic 70 mm Hg 025 Heart Rate 98 /min 03/27/2024 Height 70 in 03/27/2024 Weight 264.4 lbs 03/27/2024 BMI 37.93 kg/m2 03/27/2024 Encounters Encounter Location Date Provider Diagnosis [facility] [address] [facility] [address] [place] [id number] 03/27/2024 Sera Allen Essential hypertensi on I10 ; Arteriosclerotic cardiovascular disease I25.10 ; Type 2 diabetes mellitus with other specified complication E11.69 ; Mixed hyperlipidemia E78.2 ; Screening PSA (prostate specific antigen) Z12.5 and Encounter for screening colonoscopy Z12.11 Assessments Encounter Date Diagnosis (ICD Code) Assessment Notes Treatment Notes Treatment Clinical Notes Section Notes 03/27/2024 Essential hypertension (ICD-10 - I10) 03/27/2024 Arteriosclerotic cardiovascular disease (ICD-10 - I25.10) 03/27/2024 Type 2 diabetes mellitus with other specified complication (ICD-10 - E11.69) 03/27/2024 Mixed hyperlipidemia (ICD-10 - E78.2) 03/27/2024 Screening PSA (prostate specific antigen) (ICD-10 - Z12.5) 03/27/2024 Encounter for screening colonoscopy (ICD-10 - Z12.11) 03/27/2024 Other Plan Of Treatment Pending Test Test Name Order Date colonoscopy 03/27/2024 Next Appt Details Follow Up: via phone to repo rt test results, Reason: Provider Name:Sera Wall y, 02/28/2025 09:00:00 AM, [address] [facility] [address] [facility], [address], [place], [id number], Progress Notes * Leigh SANDOVALOB:[birth year] (58 yo M)Acc No.[id number]:03/27/2024 Progress Notes Patient: Milton ATKINS Provider: MARIANNA Starr :1965 A ge:58 Y S ex:Male Date:03/27/2024 Address:[facility] [place], [id number] Pcp:Todd Alvarado Subjective: * Chief Complaints: * 1 . Check up. 2. Needs labs with PSA, colonoscopy due to positive cologuard, diabetic eye exam, & flu vaccine. * HPI: C ardiology: Blood Pressure Elevated P t presents today for a check up. Pt is not fasting today. Pt sts that he is doing well and has no new concerns or complaints at this time. * ROS: D ERMATOLOGY: no R eugenia. [...] puff(s) inhaled every 6 hours , Taking Aspirin 81 MG Tablet Delayed Release 1 tab(s) orally once a day , Taking Losartan Potassium 100 MG Tablet 1/2 orally once a day , Taking Pen Roark 32G X 4 MM Miscellaneous as directed , Taking Metoprolol Succinate ER 50 MG Tablet Extended Release 24 Hour 1/2 tab orally once a day , Taking Farxiga 10 MG Tablet 1 tab(s) orally once a day , Taking Omeprazole 40 MG Capsule Delayed Release 1 cap(s) Orally once daily , Taking Droplet Pen Roark 32G X 4 MM Miscellaneous USE DIRECTED , Taking Furosemide 40 MG Tablet 1/2 tab orally once a day , Taking Breztri Aerosphere 160-9-4.8 MCG/ACT Aerosol 2 puffs Inhalation Twice a day , Taking Tresiba FlexTouch 200 UNIT/ML Solution Pen-injector 10 units subcutaneously once a day , Taking Accu-Chek Guide - Strip USE DIRECTED TO TEST TWO TIMES DAILY , Taking Klor-Con 10 10 MEQ Tablet Extended Release TAKE 1 TABLET EVERY DAY , Taking Glimepiride 4 MG Tablet 1 tab(s) orally once a day , Taking metFORMIN HCl 500 MG Tablet 2 tab(s) orally 2 times a day , Taking Accu-Chek Guide Test - Strip TEST BLOOD SUGAR TWO TIMES DAILY DIRECTED , Not-Taking Promethazine-DM 6.25-15 MG/5ML Syrup 5 ml orally every 6 hours, prn , Not-Taking Jardiance 10 MG Tablet 1 tab(s) orally once a day (in the morning) , Medication List reviewed and reconciled with the patient * Allergies: H YDROcodone-Acetaminophen. Objective: * Vitals: W t:264.4, Temp:*, BP:128/70, HR:98, Nurse:WMWillis, Ht: 70, BMI:37.93. * Examination: G eneral Examination: General Appearance: N AD. HEENT: u nremarkable. Oral cavity: n o lesions, mucosa moist and WNL, no erythema. Neck: s upple, no lymphadenopathy. Chest: n ormal shape and expansion. Heart: R SR. Lungs: c lear to auscultation. Abdomen: bowel sounds present, soft and nontender, no organomegaly or masses, no guarding or rigidity. Neurologic Exam: I ntact, gait normal. Skin: n ormal, no rash. Peripheral pulses: n ormal (2+) bilaterally. Extremities: n o leg edema. Assessment: * Assessment: 1. E ssential hypertension - I10 (Primary) 2 . A rteriosclerotic cardiovascular disease - I25.10 3 . T ype 2 diabetes mellitus with other specified complication - E11.69 4 . M ixed hyperlipidemia - E78.2 5 . S creening PSA (prostate specific antigen) - Z12.5 6 . E ncounter for screening colonoscopy - Z12.11 Plan: * Treatment: Value Reference Range A /G Ratio 1.4 1.1-2.5 - * A lbumin 4.4 3.5-5.3 - g/dL * A lkaline Phosphatase 66 40-129 - IU/L * A LT (SGPT) 21 <5-55 - IU/L * A ST (SGOT) 18 <5-46 - IU/L * B ilirubin, Total 0.3 <0.2-1.2 - mg/dL * B UN 14 6-20 - mg/dL * C alcium 10.3 8.6-10.4 - mg/dL * C hloride 99 97-108 - mmol/L * C O2 29 22-32 - mmol/L * C reatinine 1.38 H 0.70-1.30 - mg/dL * G lucose 142 H 65-99 - mg/dL * P otassium 4.9 3.5-5.3 - mmol/L * S odium 142 135-145 - mmol/L * P rotein 7.6 6.0-8.3 - g/dL * e GFR by Creatinine 60 >59 - mL/min/1.73m2 * Sera Allen 03/28/2024 2:0 2:37 PM > see TE ?LAB: P-TSH reflex to FT4 (Collection Date & Time - 03/27/2024 09:14 AM)? normal* Value Reference Range T SH reflex to FT4 4.35 0.43-5.25 - mU/L * Sera Allen 03/28/2024 2:0 2:37 PM > see TE ?LAB: CBC Venipuncture (in house) (Collection Date & Time - 03/27/2024)? Normal* Value Reference Range w bc 8.3 3.5 - 10 * l ymph 20.9 15 - 50 * m id 5.9 2 - 15 * g ran 73.2 35 - 80 * r bc 5.72 3.5 - 5.5 * h gb 16.5 11.5 - 16.5 * h ct 50.6 35 - 55 * m cv 88.3 75 - 100 * m ch 28.9 25 - 35 * m chc 32.7 31 - 38 * p latlet 133 100 - 400 * Yvonne Lira 03/27/2024 11:10 :04 AM >TiffanySera Nixon 03/27/2024 11:11:54 AM > 2.?Type 2 diabetes mellitus with other specified complication?LAB: Glycohemoglobin A1c (in house) (Collection Date & Time - 03/27/2024)? 5.9%* Value Reference Range g lycohemoglobin 5.9% 5 - 6.5 % * Yvonne Lira 03/27/2024 11:10 :40 AM > Sera Allen 03/28/2024 2:02:37 PM > see TE 3.?Mixed hyperlipidemia?LAB: P-Lipid Panel (Collection Date & Time - 03/27/2024 09:14 AM)?TG's 378, HDL 29* Value Reference Range C holesterol / HDL Ratio 5.03 H 0.00-4.99 - Ratio * C holesterol 146 <200 - mg/dL * H DL Cholesterol 29 L >39 - mg/dL * L DL Cholesterol (Calculation) 41 <130 - mg/d L * L DL/HDL Ratio 1.4 <3.3 - Ratio * N on-HDL Cholesterol 117 <130 - mg/dL * T riglycerides 378 H <150 - mg/dL * Sera Allen 03/28/2024 2:0 2:37 PM > see TE 4.?Screening PSA (prostate specific antigen)?LAB: P-PSA (Collection Date & Time - 03/27/2024 09:14 AM)?normal* Value Reference Range P SA 0.98 <4.00 - ng/mL * Sera Allen 03/28/2024 2:0 2:37 PM > see TE 5.?Encounter for screening colonoscopy?Imaging: colonoscopy* Sera Allen 03/27/2024 2:0 0:18 PM > Needs with Desirae Almeida 03/27/2024 2:05:17 PM > order toddxRylie Orellananey 08/15/2024 03:06:31 PM > not performedNeilDesirae akbar 08/16/2024 09:01:22 AM >please contact patient to see if Dr. Tate office ever contacted AravindradhaGrecia 08/16/2024 10:51:14 AM > pt states he had went but they couldn't do it, so they were supposed to call to reschdule and never contacted IrmaGe akbaria 08/16/2024 01:22:40 PM >order refaxed * Procedure Codes: G 2211 Complex e/[place], [address] CAPILLARY BLOOD DRAW, 03579 GLYCATED HEMOGLOBIN TEST, Modifiers: QW , 41080 CBC WITH AUTO DIFF, 97241 VENIPUNCT, ROUTINE* * Follow Up: v ia phone to report test results * Billing Information: * Visit Code: 87378 Office Visit, Est Pt., Level 4. * Procedure Codes: G2211 Complex e/[place]. [address] CAPILLARY BLOOD DRAW. 82126 GLYCATED HEMOGLOBIN TEST. Modifiers: QW 39186 CBC WITH AUTO DIFF. 55422 VENIPUNCT, ROUTINE*. * Electronic signature of MARIANNA Benito on 09/09/2024 at 06:47 AM EDT Sign off status: Pending * Provider: MARIANNA Starr Date: 0 03/27/2024 Generated for Jose Mariai ng/Rodney/eTransmitting on: 0 09/09/2024 06:47 AM EDT History and Physical Notes * HPI (History of Present Illness) Category Sub-Category Detail Notes Category Not es Cardiology Blood Pressure Elevated Pt prese nts today for a check up. Pt is not fasting today. Pt sts that he is doing well and has no new concerns or complaints at this time Examination Category Sub-Category Detail Notes Category Not es General Examination HEENT: unremarkable Heart: RSR Lungs: clear to auscultatio n Abdomen: bowel sounds present , soft and nontender, no organomegaly or masses, no guarding or rigidity Extremities: no leg edema General Appearance: NAD Skin: normal, no rash Neurologic Exam: Intact, gait normal Neck: supple, no lymphaden opathy Oral cavity: no lesions, mucosa m oist and WNL, no erythema Peripheral pulses: normal (2+) bilatera lly Chest: normal shape and exp ansion
--- OUTSIDE RECORDS SUMMARY | 2024-04-18 07:00 | XMS_ITS ---
Author Organization [facility] Address [address] [place] [phone] Care Team Providers Care Nurse Midwife/Clinical Instructor Name Role Phone Todd Alvarado Primary Care Provider [phone] Sera Allen Unavailable [phone] Allergies Allergen (clinical drug ingredient) Drug/Non Drug [...] employed in healthcare? No Is patient an [facility] employee? N Is patient currently hospitalized? [...] imes a day for 90 days Active Accu-Chek Guide Test - TEST BLOOD SUGAR TWO TIMES DAILY DIRECTED for Active Accu-Chek Guide - USE DIRECTED TO T EST TWO TIMES DAILY for Active Klor-Con 10 10 MEQ TAKE 1 TABLET EVERY DAY for 90 Active Glimepiride 4 MG 1 tab(s) orally once a day for 90 days Active Tresiba FlexTouch 200 UNIT/ML 10 units subcutaneously once a day Active Omeprazole 40 MG 1 cap(s) Orally once daily for 90 days Active Droplet Pen [place] 32G X 4 MM USE DIRECTED for Activ e Furosemide 40 MG 1/2 tab orally once a day Active Breztri Aerosphere 160-9-4.8 MCG/ACT 2 puffs Inhalation Twice a day Active Pen [place] 32G X 4 MM as directed 09/09/2022 Active Metoprolol Succinate ER 50 MG 1/2 tab orally once a day Ac tive Farxiga 10 MG 1 tab(s) orally once a day for 30 day(s) 07/05/2021 Active Aspirin 81 MG 1 tab(s) orally once a day for 30 day(s) Active Losartan Potassium 100 MG 1/2 orally once a day Active Venlafaxine HCl ER 37.5 MG 1 cap(s) oral ly once a day for 30 day(s) Active Albuterol Sulfate HFA 108 (90 Base) MCG/ACT 2 puff(s) inhaled every 6 hours Active lamoTRIgine 200 MG 1 tab(s) orally 2 ti mes a day Active Viibryd 40 MG 1 tab(s) orally q AM Active QUEtiapine Fumarate ER 150 MG 1 tab(s) orally once a day (in the evening) for 30 day(s) Active Gabapentin 600 MG 4 [...] 04/18/2024 Encounters Encounter Location Date Provider Diagnosis [facility] [address] [facility] [address] [place] [phone] 04/18/2024 Sera Allen Acute URI J06.9 and [...] to repo rt test results, Reason: Provider Name:eSra Wall y, 02/28/2025 09:00:00 AM, [address], [address], [place], [place], [phone], Progress Notes * Leigh BASSETTOB:[birth year] (58 yo M)Acc No.[id number]:04/18/2024 Progress Notes Patient: Tiffani ENCISOHAZELMilton Provider: MARIANNA Starr :1965 A ge:58 Y S ex:Male Date:04/18/2024 Address:[address], [id number] Pcp:Todd Alvarado Subjective: * Chief Complaints: * [...] orally once a day , Taking Pen [place] 32G X 4 MM Miscellaneous as directed , Taking Metoprolol Succinate ER 50 MG Tablet Extended Release 24 Hour 1/2 tab orally once a day , Taking Farxiga 10 MG Tablet 1 tab(s) orally once a day , Taking Omeprazole 40 MG Capsule Delayed Release 1 cap(s) Orally once daily , Taking Droplet Pen [place] 32G X 4 MM Miscellaneous USE DIRECTED [...] Examination: E NT/Respiratory: General Appearance: N AD. Ears: a uditory canals normal bilaterally, TM's WNL. Nose : turbinates red, congested. Sinuses : tender maxillary sinuses bilaterally. Oral cavity : erythema without exudate on pharynx, PND present. Neck : n o cervical lymphadenopathy. Heart : R RR, normal S1 S2, no murmurs. Lungs: expiratory wheezes, no rales. ? Assessment: * Assessment: 1. A ranjana LAMAS - J06.9 (Primary) 2 . B beba Galvan40 Plan: * Treatment: Value Reference Range C [...] Value Reference Range R esult: neg * Gloria Ballard 04/18/2024 11:08 :48 AM > , Provider [...] * Procedure Codes: 9 4760 [place], [address] CAPILLARY BLOOD DRAW, 56451 CBC WITH AUTO DIFF, 76138 COVID TEST IN HOUSE, Modifiers: QW * Follow Up: v ia phone to report test results * Billing Information: * Visit Code: 02600 Office Visit, Est Pt., Level 3. * Procedure Codes: [address] [place]. [address] CAPILLARY BLOOD DRAW. 18750 CBC WITH AUTO DIFF. 34456 COVID TEST IN HOUSE. Modifiers: QW * Electronic signature of MARIANNA Benito on 09/09/2024 at 06:47 AM EDT Sign off status: Pending * Provider: MARIANNA Starr Date: 0 04/18/2024 Generated for Jose Mariai ng/Beckieg/eTransmitting on: 0 09/09/2024 06:47 AM EDT History [...]
--- OUTSIDE RECORDS SUMMARY | 2024-08-28 11:45 | XMS_ITS ---
Author Organization [facility] Address [address] [place] [id number] Care Team Providers Care Crude Oil Treater Name Role Phone Todd Alvarado Primary Care Provider Sera Allen Unavailable [phone] Allergies Allergen (clinical drug ingredient) Drug/Non Drug [...] Interpretation:Normal Performing Lab: Notes/Report: Test performed by [facility] [address] [facility] , [address], [place] [address] Jez Martines MD, Spray Worker CLIA: [id number] Sodium 143 135-145 mmol/L Potassium 4.3 3.5-5.3 [...] 26 Performing Lab: Notes/Report: Test performed by [facility], [address] , [address], [place] [address] Jez Martines MD, Spray Worker CLIA: [id number] Cholesterol 94 <200 mg/dL Triglycerides 204 <150 [...] Interpretation:Normal Performing Lab: Notes/Report: Test performed by [facility] [address] [place], [place] [address] [place] , [place] [address] Jez Martines MD, Spray Worker CLIA: [id number] TSH reflex to FT4 1.62 0.43-5.25 mU/L P-Microalbumin/Creatinine, R andom Urine Sample Reviewed date:08/30/2024 12:58:29 PM Interpretation:Normal Performing Lab: Notes/Report: Test performed by [facility] [address] [place] [address] , [place] [address] Jez Martines MD, Spray Worker CLIA: [id number] Albumin/Creatinine Ratio, Urine 4 0-30 ug/m g Microalbumin, Urine, Random 0.9 Creatinine, Urine 251.0 proBrain Natriuretic Peptide Reviewed date:08/30/2024 12:58:29 PM Interpretation:Normal Performing Lab: Notes/Report: Test performed by [facility], [address] , [address], [place] [address] Jez Martines MD, Spray Worker CLIA: [id number] proBrain Natriuretic Peptide 43 <300 pg/mL Please [...] DAILY DIRECTED for 90 Active Droplet Pen [place] 32G X 4 MM USE DIRECTED for [...] 1/2 orally once a day Active Pen [place] 32G X 4 MM as directed 09/09/2022 [...] Problem Status W/U Status Risk Notes Problem 868297125 BMI 37.0-37.9, adult (Z68.37) Active confirmed Problem 356289811 Morbid (severe) obesity due to excess calories (E66.01) Active confirmed Problem 89265316 Chronic respiratory failure, unspecified whether with hypoxia or hypercapnia (J96.10) Active confirmed Problem 49699166 Hypertensive heart disease with heart failure (I11.0) Active confirmed Problem 63179944 Congestive heart failure, unspecified (I50.9) Active confirmed Problem 37605653 Chronic obstructive pulmonary disease, unspecified COPD type (J44.9) Active confirmed Vital Signs Blood pressure systolic 150 mm Hg 08/29/19 25 Blood pressure diastolic 90 mm Hg 025 Heart Rate 87 /min 08/28/2024 Height 70 in 08/28/2024 Weight 262.6 lbs 08/28/2024 BMI 37.68 kg/m2 08/28/2024 Encounters Encounter Location Date Provider Diagnosis [facility] [address] [id number] 08/28/2024 Sera Tiffany Intermittent diarrhe a R19.7 ; Type 2 [...] 02/28/2025 09:00:00 AM, [address] [facility], [address], [place], [place], [id number], Progress Notes * Leigh BASSETTOB:[birth year] (58 yo M)Acc No.[id number]:08/28/2024 Progress Notes Patient: Milton ATKINS Provider: MARIANNA Starr :1965 A ge:58 Y S ex:Male Date:08/28/2024 Address:[place], [id number] Pcp:Todd Alvarado Subjective: * Chief Complaints: * [...] orally once a day , Taking Pen [place] 32G X 4 MM Miscellaneous as directed , Taking Metoprolol Succinate ER 50 MG Tablet Extended Release 24 Hour 1/2 tab orally once a day , Taking Droplet Pen [place] 32G X 4 MM Miscellaneous USE DIRECTED [...] Lechuga 08/28/2024 04 :49:35 PM EDT > PankajYvonne 08/30/2024 12:58:17 PM EDT > See phone encounter Notes: Patient has a c-scope scheduled.??3.?Lower extremity edema?LAB: P-BNP (Brain Natriuretic Peptide)* Sera Allen 08/28/2024 0 4:11:16 PM EDT >[facility] 4.?Essential hypertension?LAB: P-Comprehensive Metabolic Panel (CMP) [...] Natriuretic Peptide 43 <300 - pg/mL * [facility], IT support 08/30/2024 05:30:08 : This order was created by the Interface. Yvonne Lira 08/30/2024 12:58:17 PM EDT > See phone encounter * Procedure Codes: G 2211 Complex e/[place], [address] CBC WITH AUTO DIFF, 84278 GLYCATED HEMOGLOBIN TEST, Modifiers: QW , G8950 PREHTN/HTN BP DOC INDCD F/U DOC, G4852 MOST RECENT SYSTOLIC BP < 140MM HG, G8754 MOST RECENT DIASTOLIC BP < 90MM HG, 3044F HG A1C LEVEL LT 7.0% * Follow Up: v ia phone to report test results * Billing Information: * Visit Code: 67997 Office Visit, Est Pt., Level 4. * Procedure Codes: G2211 Complex e/[place]. [address] CBC WITH AUTO DIFF. 42846 GLYCATED HEMOGLOBIN TEST. Modifiers: QW G8950 PREHTN/HTN BP DOC INDCD F/U DOC. G8752 MOST RECENT SYSTOLIC BP < 140MM HG. G8754 MOST RECENT DIASTOLIC BP < 90MM HG. 3044F HG A1C LEVEL LT 7.0%. * Electronic signature of MARIANNA Benito on 09/09/2024 at 06:47 AM EDT Sign off status: Pending * Provider: MARIANNA Starr Date: 0 08/28/2024 Generated for Miguel ng/Farossg/eTransmitting on: 0 09/09/2024 06:47 AM EDT History [...]
--- OUTSIDE RECORDS SUMMARY | 2024-09-09 06:47 | XMS_ITS | Clinical Summary ---
Author Organization [facility] Address [address] [place] [address] Phone Care Team Providers Care Full Charge Bookkeeper Name Role Phone Unavailable Primary Care Provider [...]
--- OUTSIDE RECORDS SUMMARY | 2024-09-09 06:48 | XMS_ITS | Patient Health Record ---
[facility] [address] [place] [id number] Care Team Providers Care Project Surveyor Name Role Phone Todd Alvarado Primary Care Provider eSra Allen Unavailable [phone] Allergies Allergen (clinical drug ingredient) Drug/Non Drug [...] 1.38 Performing Lab: Notes/Report: Test performed by [facility] , [address], [place] [address] Jez Martines MD, Teacher Drama CLIA: [id number] Sodium 142 135-145 mmol/L Potassium 4.9 3.5-5.3 [...] 29 Performing Lab: Notes/Report: Test performed by [facility], [address] , [address], [place] [address] Jez Martines MD, Teacher Drama CLIA: [id number] Cholesterol 146 <200 mg/dL Triglycerides 378 <150 [...] Interpretation:normal Performing Lab: Notes/Report: Test performed by [email or web address] [address] [place] [address] [place] [address] Jez Martines MD, Teacher Drama CLIA: [id number] PSA 0.98 <4.00 ng/mL Please note this is an ultrasensitive PSA assay with a lower limit of detection of 0.014 ng/mL. This test is performed by the [employer] ECLIA methodology. Values obtained with different assay methods or kits cannot be directly compared. P-TSH reflex to FT4 Reviewed date:03/28/2024 02:02:50 PM Interpretation:normal Performing Lab: Notes/Report: Test performed by [email or web address] [address] [place] [address] [place] [address] Jez Martines MD, Teacher Drama CLIA: [id number] TSH reflex to FT4 4.35 0.43-5.25 mU/L [...] employed in healthcare? No Is patient an [facility] employee? N Is patient currently hospitalized? [...] Interpretation:Normal Performing Lab: Notes/Report: Test performed by [email or web address] [address] [place] [address] , [address], [place] [address] Jez Martines MD, Teacher Drama CLIA: [id number] Sodium 143 135-145 mmol/L Potassium 4.3 3.5-5.3 [...] 26 Performing Lab: Notes/Report: Test performed by [email or web address] [address] [place] [address] , [address], [place] [address] Jez Martines MD, Teacher Drama CLIA: [id number] Cholesterol 94 <200 mg/dL Triglycerides 204 <150 [...] Interpretation:Normal Performing Lab: Notes/Report: Test performed by [email or web address] [address] , [address], [place] [address] Jez Martines MD, Teacher Drama CLIA: [id number] TSH reflex to FT4 1.62 0.43-5.25 mU/L P-Microalbumin/Creatinine, R andom Urine Sample Reviewed date:08/30/2024 12:58:29 PM Interpretation:Normal Performing Lab: Notes/Report: Test performed by [facility], [address] , [address], [place] [address] Jez Martines MD, Teacher Drama CLIA: [id number] Albumin/Creatinine Ratio, Urine 4 0-30 ug/mg Microalbumin, Urine, Random 0.9 Creatinine, Urine 251.0 [facility] Natriuretic Peptide Reviewed date:08/30/2024 12:58:29 PM Interpretation:Normal Performing Lab: Notes/Report: Test performed by [email or web address] [address] , [address], [place] [id number] Jez Martines MD, Teacher Drama CLIA: [id number] pro[facility] Natriuretic Peptide 43 <300 pg/mL Please [...] 10 MG as directed Orally Active Pen [place] 32G X 4 MM as directed 09/09/2022 [...] Onc e a day Not-Taking Droplet Pen [place] 32G X 4 MM USE DIRECTED for [...] Vaccine Route Administration Date Status Comme nts PNEUMOVAX 23 VACCINE IM Intramuscular 01/12/2023 Administe red DT, 7 YEARS OR OLDER Unknown 05/23/1996 Administered Problems Problem Type SNOMED Code ICD Code Onset Dates Problem Status W/U Status Risk Notes Problem 79878246 Hyperglycemia (R73.9) Active confirmed Problem 47439294 Essential hypertension (I10) Active confirmed Problem 87934817 Onychogryposis (L60.2) Active confirmed Problem 643323780 Morbid (severe) obesity due to excess calories (E66.01) Active confirmed Problem 63918497 Type 2 diabetes mellitus with other specified complication (E11.69) Active confirmed Problem 250918472 Mixed hyperlipidemia (E78.2) Active confirmed Problem 08982321 Hypertensive hea rt disease with heart failure (I11.0) Active confirmed Problem 93993602 Simple chronic bronchitis (J41.0) Active confirmed Problem 91562356 Chronic respirat ory failure, unspecified whether with hypoxia or hypercapnia (J96.10) Active confirmed Problem 535076860 Onychomycosis (B35.1) Active confirmed Problem 70244110 Arteriosclerotic cardiovascular disease (I25.10) Active confirmed Problem 25187653 Congestive heart failure, unspecified (I50.9) Active confirmed Problem 559856309 senior living (curre nt) use of insulin (Z79.4) Active confirmed Problem 69171817 Chronic obstruct timi pulmonary disease, unspecified COPD type (J44.9) Active confirmed Problem 113063868 BMI 37.0-37.9, adult (Z68.37) Active confirmed Problem 236207486 Pneumonia of bot h lower lobes due to infectious organism (J18.9) Active confirmed Problem 04526634 Type 2 diabetes mellitus with hyperglycemia, without long-term current use of insulin (E11.65) Active confirmed Problem 81328638 Stasis dermatiti s of both legs (I87.2) Active confirmed Problem Adult BMI 35.0-3 5.9 kg/sq m (Z68.35) Active confirmed Problem 778956593724288 Type 2 diabetes mellitus with hyperglycemia, unspecified whether terminal makeup operator insulin use (E11.65) Active confirmed Problem Plain X-ray of chest abnormal (finding) (3609453225) Abnormal chest x-ray (R93.89) Active confirmed Problem 2775673 Diastolic dysfunction (I51.89) Active confirmed Problem 260390863 Gastroesophageal reflux disease, unspecified whether esophagitis present (K21.9) Active confirmed Problem 978592192 Stasis dermatiti s of lower extremity due to chronic peripheral vascular hypertension (I87.329) Active confirmed Vital Signs Heart Rate 87 /min 08/28/2024 Blood pressure diastolic 90 mm Hg 08/28/2024 Height 70 in 08/28/2024 Blood pressure systolic 150 mm Hg 08/28/2024 Weight 262.6 lbs 08/28/2024 BMI 37.68 kg/m2 08/28/2024 Encounters Encounter [facility] Date [facility] [address] [id number] 03/27/2024 Sera Allen Essential hypertensi on I10 ; Arteriosclerotic cardiovascular disease I25.10 ; Type 2 diabetes mellitus with other specified complication E11.69 ; Mixed hyperlipidemia E78.2 ; Screening PSA (prostate specific antigen) Z12.5 and Encounter for screening [facility] [address] [facility] [address] [place] [id number] 04/18/2024 Sera Allen Acute URI J06.9 and Bronchitis J40 [facility] 121 [facility] [address] [place], [place] [id number] 08/28/2024 Sera Allen Intermittent diarrhe a R19.7 [...] obstructive pulmonary disease, unspecified COPD type J44.9 [facility] [address] [facility] [address] [place], [place] [id number] 03/28/2024 Sera Tiffany A-[place] [address] [place], [place] [id number] 04/18/2024 Sera Shookyeimi To[facility] [address] [facility] [address] [place], [place] [id number] 05/08/2024 Todd Howe Gastroesophageal ref lux disease, unspecified whether esophagitis present K21.9 [facility] [facility] [facility] [address] [place], [place] [id number] 07/26/2024 Todd Howe Lower extremity clifford a R60.0 [facility] [address] [facility] [address] [place], [place] [id number] 08/09/2024 Todd Howe [facility] [address] [facility] [address] [place], [place] [id number] 08/30/2024 Sera Allen Assessments Encounter Date Diagnosis (ICD Code) Assessment [...] Z12.11) 08/28/2024 Mixed hyperlipidemia (ICD-10 - E78.2) 08/28/2024 [...] disease, unspecified COPD type (ICD-10 - J44.9) 03/27/2024 Other Plan Of Treatment Pending Test Test Name Order Date colonoscopy 08/09/2022 colonoscopy 03/27/2024 LC-Comp. Metabolic Panel (14) 11/25/2020 P-BNP (Brain Natriuretic Peptide) 2024 Next Appt Details Provider Name:Sera menezes 02/28/2025 09:00:00 AM, [address], [address], [place], [id number], Insurance Providers Payer Name Payer Address Payer Phone Subscriber Number Group Number Insured Name Patient Relationship to Insured Coverage Start Date Coverage End Date [employer] [address] [place] [address] [id number] Milton Kohler Self - patient is the insured [employer] [address] [place] [address] [id number] Milton Kohler Self - patient is the insured Medical (General) History Medical History History ICD Code COPD enlarged heart HBP Depression, bipolar Arthritis T2DM Surgical History Surgery Date(Month/Year) Bilateral Knee 07/2006 Nerve Stimulator Knee x6 Back Hospitalization History Reason Date(Month/Year)
--- OUTSIDE RECORDS SUMMARY | 2024-09-09 06:48 | XMS_ITS | Clinical Summary ---
Author Organization [facility] Address [address] [place] [address] Care Team Providers Care Powdered Sugar Pulverizer Operator Name Role Phone Maged Sharma MD Primary Care Provider [phone] Family History Medical History Relation Name Comments [...] Care Team (Late st Contact Info) Description 11/01/2024 12:20 PM EDT Office Visit [facility] [address] [place] [phone] Guillaume Reeves MD [address] [place] [phone] Health Maintenance Due Date Last Done Comments [...] 11/30/2011 UKY-Zoster Vaccines (1 of 2) 2016 [id number] Vaccine (1 - 20 24-25 season) 2023 [...] complete this topic Insurance [place] [id number] [employer]AV[employer] MEDICARE Care Teams Powdered Sugar Pulverizer Operator Relationship Specialty Start Date End Date Maged Sharma MD [address] [place] [address] PCP - General 07/31/20
--- NOTE | 2024-09-09 07:00 | NM_ITS ---
APPROVED REPORT Wheel Borer: Procedure: 99mTc-PYP Cardiac Amyloidosis Imaging Clinical Indication: Heart failure, increased LV wall thickness Protocol: The patient received 25.6 mCi 99mTc-PYP intravenously. Planar and SPECT imaging was performed approximately 3 hours post injection. Planar images included anterior, left lateral and MYAH-45 projections. Findings: Visual interpretation: Planar and SPECT images were reviewed The overall quality of the study was good. Semi quantitative SPECT findings showed a grade 1. Planar imaging demonstrates a heart to contralateral ratio of 1.03 (normal<1.5, equivocal=1.2-1.4, abnormal>1.5). Impression: 1. Overall, the quality of the study was good. 2. Semi quantitative SPECT findings showed grade 1. 3. Overall interpretation of the findings is not suggestive of ATTR amyloidosis. This study and report were reviewed and signed by Steven Abebe MD (electronic organ technician). Conclusion Electronically signed by : Christy Abebe MD 09/19/2024 14:59:39
[2024-09-09] MEDS: SODIUM CHLORIDE 0.9% 10ML SYR (RAD ONLY) 10 ML IV (07:57)
[2024-09-09] MEDS: PYROPHOSPHATE CARDIAC (PYP);1 DOSE VIAL IV (07:58)
== END 2024-09-09 23:59 | disposition home or self-care (01) ==
PROVIDERS: PCP Physician Assistant; Visit Provider Nurse Practitioner
DX: R94.30 Abnormal result of cardiovascular function study, unspecified (principal)
CPT/HCPCS: 78803

== ENCOUNTER 2024-10-15 10:02 | Outpatient (CLI) | payer MEDICARE, SELFPAY ==
--- OUTSIDE RECORDS SUMMARY | 2017-08-03 04:50 | XMS_ITS | Continuity of Care Document ---
Author Organization [facility]ice Address 1200 [facility] [address] [place] [address] Phone Care Team Providers Care Gray Tender Name Role Phone oRnald NANCE Sal ROSADO Unavailable Unavailable Allergies, Adverse [...] day 25 MG - Active dose increase VITAMIN D3 (unknown strength) 50,000 units 2 [...] Copied on Encounter Office/outpa tient visit,anthony, jaison [facility], [address] [place] [address], [id number], tel:[phone] [facility] Dyspnea (chief complaint)Ed dean [...] unspecified heart failure type 8 Ronald Huang. [address] [place] [address], [id number], . tel:[phone] Referring Provider: Sal Cardenas, [address] [place] [address], [id number]. tel:[phone] Family History Family Member Type Diagnosis Age At Onset Mother Problem (finding) coronary arterioscleros is Payers Payer name Insurance type Covered green party ID Authorwadea carolineabhi(s) Lonnie KRISTIAN [id number] Social History Type Description Quantity Date Captured [...]
--- OUTSIDE RECORDS SUMMARY | 2024-03-27 05:45 | XMS_ITS ---
Author Organization [facility] Address [address] [place] [id number] Care Team Providers Care Water Manager Name Role Phone Todd Alvarado Primary Care Provider Sera Allen Unavailable [phone] Allergies Allergen (clinical drug ingredient) Drug/Non Drug Allergy documented on EMR Reaction Allergy Type Onset Date Status HYDROcodone-Acetamin op hen Unknown Drug Allergy Active Results Component Value [...] 1.38 Performing Lab: Notes/Report: Test performed by [facility] , [address], [place] [address] Jez Martines MD, Exhibit Technician CLIA: [id number] Sodium 142 135-145 mmol/L Potassium 4.9 3.5-5.3 [...] 29 Performing Lab: Notes/Report: Test performed by [facility], [address] , [address], [place] [address] Jez Martines MD, Exhibit Technician CLIA: [id number] Cholesterol 146 <200 mg/dL Triglycerides 378 <150 [...] Interpretation:normal Performing Lab: Notes/Report: Test performed by [facility] [address] [place] [address] [place] [address] Jez Martines MD, Exhibit Technician CLIA: [id number] PSA 0.98 <4.00 ng/mL Please note this is an ultrasensitive PSA assay with a lower limit of detection of 0.014 ng/mL. This test is performed by the [place] ECLIA methodology. Values obtained with different assay methods or kits cannot be directly compared. P-TSH reflex to FT4 Reviewed date:03/28/2024 02:02:50 PM Interpretation:normal Performing Lab: Notes/Report: Test performed by [facility] [address] [place] [address] [place] [address] Jez Martines MD, Exhibit Technician CLIA: [id number] TSH reflex to FT4 4.35 0.43-5.25 mU/L REASON FOR VISIT check up, Needs labs with PSA, colonoscopy due to positive cologuard, diabetic eye exam, & flu vaccine Medications Medication SIG (Take, Route, Frequency, Duration) Notes Start Date End Date Status Ariadna Aerosphere 160-9-4.8 MCG/ACT 2 puffs Inhalation Twice a day Active Droplet Pen [place] 32G X 4 MM USE DIRECTED; Duration: 90 Active Furosemide 40 MG 1/2 tab orally once a day Active Farxiga 10 MG 1 tab(s) orally once a day; Duration: 30 day(s) 07/05/2021 Active Omeprazole 40 MG 1 cap(s) Orally once daily; Duration: 90 days Active Albuterol Sulfate HFA 108 (90 Base) MCG/ACT 2 puff(s) inhaled every 6 hours Active Pen [place] 32G X 4 MM as directed 09/09/2022 Active Metoprolol Succinate ER 50 MG 1/2 tab orally once a day Active Aspirin 81 MG 1 tab(s) orally once a day; Duration: 30 day(s) Active Losartan Potassium 100 MG 1/2 orally once a day Active QUEtiapine Fumarate ER 150 MG 1 tab(s) orally once a day (in the evening); Duration: 30 day(s) Active Venlafaxine HCl ER 37.5 MG 1 cap(s) orally once a day; Duration: 30 day(s) Active lamoTRIgine 200 MG 1 tab(s) orally 2 ti mes a day Active Viibryd 40 MG 1 tab(s) orally q AM Active Rosuvastatin Calcium 20 MG 1 tablet Orally Once a day Active Gabapentin 600 MG 4 tablet 2 tabs am 2 tabs pm Active Accu-Chek Guide Test - TEST BLOOD SUGAR TWO TIMES DAILY DIRECTED; Duration: 90 Active Spironolactone 50 MG 1 tablet [...] EST TWO TIMES DAILY; Duration: 90 Active metFORMIN HCl 500 MG 2 tab(s) orally 2 t imes a day; Duration: 90 days Active Klor-Con 10 10 MEQ TAKE 1 TABLET EVERY DAY; Duration: 90 Active Glimepiride 4 MG 1 tab(s) orally once a day; Duration: 90 days Active Vital Signs Blood pressure systolic 128 mm Hg 03/27/19 25 Blood pressure diastolic 70 mm Hg 025 Heart Rate 98 /min 03/27/2024 Height 70 in 03/27/2024 Weight 264.4 lbs 03/27/2024 BMI 37.93 kg/m2 03/27/2024 Encounters Encounter Location Date Provider Diagnosis [facility] 36 [facility] [address] [place] [id number] 03/27/2024 Sera Allen Essential hypertensi on I10 [...] Name:Sera Wall y, 02/28/2025 09:00:00 AM, [address] [facility] 36 [facility], [address], [place], [phone], Progress Notes * Leigh SANDOVALOB:[birth year] (58 yo M)Acc No.[id number]:03/27/2024 Progress Notes Patient: Milton ATKINS Provider: MARIANNA Starr :1965 A ge:58 Y S ex:Male Date:03/27/2024 Address:[place], [id number] Pcp:Todd Alvarado Subjective: * Chief Complaints: * [...] orally once a day , Taking Pen [place] 32G X 4 MM Miscellaneous as directed , Taking Metoprolol Succinate ER 50 MG Tablet Extended Release 24 Hour 1/2 tab orally once a day , Taking Farxiga 10 MG Tablet 1 tab(s) orally once a day , Taking Omeprazole 40 MG Capsule Delayed Release 1 cap(s) Orally once daily , Taking Droplet Pen [place] 32G X 4 MM Miscellaneous USE DIRECTED [...] * Vitals: W t:264.4, Temp:*, BP:128/70, HR:98, Nurse:EDVIN, Ht: 70, BMI:37.93. * Examination: G eneral Examination: General Appearance: N AD. H EENT: u nremarkable.?Oral cavity: n o lesions, mucosa moist and WNL, no erythema. N jennifer: s upple, no lymphadenopathy. C hest: n ormal shape and expansion. H eart: R SR. L ungs: c lear to auscultation. A bdomen: bowel sounds present, soft and nontender, no organomegaly or masses, no guarding or rigidity. N eurologic Exam: I ntact, gait normal. S kin: n ormal, no [...] p latlet 133 100 - 400 * PankajYvonne 03/27/2024 11:10 :04 AM >Sera Allen 03/27/2024 11:11:54 AM > 2.?Type 2 diabetes [...] Desirae Almeida 03/27/2024 2:05:17 PM > order toddxGrecia Orellana 08/15/2024 03:06:31 PM > not performedDesirae Calloway 08/16/2024 09:01:22 AM >please contact patient to see if Dr. Tate office ever contacted Grecia Ye 08/16/2024 10:51:14 AM > pt states he had went but they couldn't do it, so they were supposed to call to reschdule and never contacted Desirae Jeff 08/16/2024 01:22:40 PM >order refaxed * Procedure Codes: G 2211 Complex e/[place], [address] CAPILLARY BLOOD DRAW, 59294 GLYCATED HEMOGLOBIN TEST, Modifiers: QW , 31025 CBC WITH AUTO DIFF, 89186 VENIPUNCT, ROUTINE* * Follow Up: v ia phone to report test results * Images: Billing Information: * Visit Code: 69118 Office Visit, Est Pt., Level 4. * Procedure Codes: G2211 Complex e/[place]. [address] CAPILLARY BLOOD DRAW. 53253 GLYCATED HEMOGLOBIN TEST. Modifiers: QW 59609 CBC WITH AUTO DIFF. 02059 VENIPUNCT, ROUTINE*. * Electronic signature of MARIANNA Benito on 10/15/2024 at 10:08 AM EDT Sign off status: Pending * Provider: MARIANNA Starr Date: 0 03/27/2024 Generated for Miguel love/Rodney/eTransmitting on: 0 10/15/2024 10:08 AM EDT History and Physical Notes * [...]
--- OUTSIDE RECORDS SUMMARY | 2024-04-18 07:00 | XMS_ITS ---
Author Organization [facility] Address [address] [place] [phone] Care Team Providers Care Licensed Practical Nurse Clinic Nurse Name Role Phone Todd Alvarado Primary Care Provider Sera Allen Unavailable [phone] Allergies Allergen (clinical drug ingredient) Drug/Non Drug [...] employed in healthcare? No Is patient an [facility] employee? N Is patient currently hospitalized? No [...] daily; Duration: 90 days Active Droplet Pen [place] 32G X 4 MM USE DIRECTED; Duration: 90 Active Furosemide 40 MG 1/2 tab orally once a day Active Breztri Aerosphere 160-9-4.8 MCG/ACT 2 puffs Inhalation Twice a day Active Pen [place] 32G X 4 MM as directed 09/09/2022 [...] [address] [place] [phone] 04/18/2024 Sera Allen Acute URI J06.9 and [...] [address], [address], [place], [phone], Progress Notes * Leigh BASSETTOB:[birth year] (58 yo M)Acc No.[id number]:04/18/2024 Progress Notes Patient: Tiffani Milton ASHTON Provider: MARIANNA Starr :1965 A ge:58 Y S ex:Male Date:04/18/2024 Address:[address], [id number] Pcp:Todd Alvarado Subjective: * Chief Complaints: * [...] orally once a day , Taking Pen [place] 32G X 4 MM Miscellaneous as directed , Taking Metoprolol Succinate ER 50 MG Tablet Extended Release 24 Hour 1/2 tab orally once a day , Taking Farxiga 10 MG Tablet 1 tab(s) orally once a day , Taking Omeprazole 40 MG Capsule Delayed Release 1 cap(s) Orally once daily , Taking Droplet Pen [place] 32G X 4 MM Miscellaneous USE DIRECTED [...] rales. Assessment: * Assessment: 1. A ranjana LAMAS - J06.9 (Primary) 2 . B beba [...] Value Reference Range R esult: neg * ArikGloria longoria 04/18/2024 11:08 :48 AM > , Provider [...] * Procedure Codes: 9 4760 [place], [address] CAPILLARY BLOOD DRAW, 99694 CBC WITH AUTO DIFF, 16145 COVID TEST IN HOUSE, Modifiers: QW * Follow Up: v ia phone to report test results * Images: Billing Information: * Visit Code: 56792 Office Visit, Est Pt., Level 3. * Procedure Codes: [address] [place] [address] CAPILLARY BLOOD DRAW. 13111 CBC WITH AUTO DIFF. 25893 COVID TEST IN HOUSE. Modifiers: QW * Electronic signature of MARIANNA Benito on 10/15/2024 at 10:08 AM EDT Sign off status: Pending * Provider: MARIANNA Starr Date: 0 04/18/2024 Generated for Miguel love/Rodney/eTransmitting on: 0 10/15/2024 [...]
--- OUTSIDE RECORDS SUMMARY | 2024-08-28 11:45 | XMS_ITS ---
Author Organization [facility] Address [address] [place] [id number] Care Team Providers Care Labor Economist Name Role Phone Todd Alvarado Primary Care Provider Sera Allen Unavailable [phone] Allergies Allergen (clinical drug ingredient) Drug/Non Drug Allergy documented on EMR Reaction Allergy Type Onset Date Status HYDROcodone-Acetamin op hen Unknown Drug Allergy Active Results Component Value Reference Range Notes CBC Venipuncture (in house) Reviewed date:08/30/2024 12:58:29 PM Interpretation:Normal Performing Lab: Notes/Report: Normal wbc 6.8 3.5 - 10 lymph 23.6% 15 - 50 mid 5.1% 2 - 15 gran 71.3% 35 - 80 rbc 5.08 3.5 - 5.5 hgb 14.3 11.5 - 16.5 hct 45.1 35 - 55 mcv 88.9 75 - 100 mch 28.1 25 - 35 mchc 31.6 31 - 38 platlet 119 100 - 400 Glycohemoglobin A1c (in hous e) Reviewed date:08/30/2024 12:58:29 PM Interpretation:5.8 Performing Lab: Notes/Report: 5.8 glycohemoglobin 5.8% 5 - 6.5 % P-Comprehensive Metabolic Pa jesika (CMP) Reviewed date:08/30/2024 12:58:29 PM Interpretation:Normal Performing Lab: Notes/Report: Test performed by [facility] , [address], [place] [address] Jez Martines MD, Power Plant Mechanic CLIA: [id number] Sodium 143 135-145 mmol/L Potassium 4.3 3.5-5.3 mmol/L Chloride 106 97-108 mmol/L CO2 25 22-32 mmol/L Glucose 68 65-99 mg/dL BUN 13 6-20 mg/dL Creatinine 1.29 0.70-1.30 mg/dL Calcium 10.1 8.6-10.4 mg/dL eGFR by Creatinine 64 >59 mL/min/1.73m2 Protein 6.4 6.0-8.3 g/dL Albumin 4.0 3.5-5.3 g/dL Alkaline Phosphatase 55 40-129 IU/L ALT (SGPT) 12 <5-55 IU/L AST (SGOT) 14 <5-46 IU/L Bilirubin, Total 0.2 <0.2-1.2 mg/dL A/G Ratio 1.7 1.1-2.5 P-Lipid Panel Reviewed date:08/30/2024 12:58:29 PM Interpretation:trigs 204, hdl 26 Performing Lab: Notes/Report: Test performed by [facility], [address] , [address], [place] [address] Jez Martines MD, Power Plant Mechanic CLIA: [id number] Cholesterol 94 <200 mg/dL Triglycerides 204 <150 mg/dL HDL Cholesterol 26 >39 mg/dL Cholesterol / HDL Ratio 3.62 0.00-4.99 Ratio Non-HDL Cholesterol 68 <130 mg/dL LDL Cholesterol (Calculation) 27 <130 mg/dL LDL Cholesterol Levels* Less than 100 mg/dL Optimal 100 to 129 mg/dL Near Optimal/ Above Optimal 130 to 159 mg/dL Borderline High 160 to 189 mg/dL High 190 mg/dL and above Very High * Categories as recommended by the 2004 ATPIII guidelines LDL/HDL Ratio 1.0 <3.3 Ratio LDL Cholesterol Patient History Test Date: 07/12/2023 LDL Results: 53 Units: mg/dL % Change: - Test Date: 03/27/2024 LDL Results: 41 Units: mg/dL % Change: -22% Test Date: 08/28/2024 LDL Results: 27 Units: mg/dL % Change: -34% P-TSH reflex to FT4 Reviewed date:08/30/2024 12:58:29 PM Interpretation:Normal Performing Lab: Notes/Report: Test performed by [facility] [address] [place], [place] [address] , [place] [address] Jez Martines MD, Power Plant Mechanic CLIA: [id number] TSH reflex to FT4 1.62 0.43-5.25 mU/L P-Microalbumin/Creatinine, R andom Urine Sample Reviewed date:08/30/2024 12:58:29 PM Interpretation:Normal Performing Lab: Notes/Report: Test performed by [facility] [address] [place] [address] , [place] [address] Jez Martines MD, Power Plant Mechanic CLIA: [id number] Albumin/Creatinine Ratio, Urine 4 0-30 ug/m g Microalbumin, Urine, Random 0.9 Creatinine, Urine 251.0 proBrain Natriuretic Peptide Reviewed date:08/30/2024 12:58:29 PM Interpretation:Normal Performing Lab: Notes/Report: Test performed by [facility], [address] , [address], [place] [address] Jez Martines MD, Power Plant Mechanic CLIA: [id number] proBrain Natriuretic Peptide 43 <300 pg/mL Please note the updated reference range values which are stratified by age. Positive >900 pg/mL Indeterminate 300-900 pg/mL Negative <300 pg/mL REASON FOR VISIT possible sugar issues, patient is overdue for KED - Need eGFR and uACR, needs Diabetic Eye Exam, needs colonoscopy - positive Cologuard results in 2022 - no follow up Medications Medication SIG (Take, Route, Frequency, Duration) Notes Start Date End Date Status Omeprazole 40 MG 1 cap(s) Orally once daily; Duration: 90 days Active Furosemide 40 MG 2 tab orally once a day; Duration: 90 days Active Glimepiride 4 MG 1 tab(s) orally once a day; Duration: 90 days Active Tresiba FlexTouch 200 UNIT/ML 5 units subcutaneously once a day Active Accu-Chek Guide Test - TEST BLOOD SUGAR TWO TIMES DAILY DIRECTED; Duration: 90 Active Droplet Pen [place] 32G X 4 MM USE DIRECTED; Duration: 90 Active Breztri Aerosphere 160-9-4.8 MCG/ACT 2 puffs Inhalation Twice a day Active Accu-Chek Guide - USE DIRECTED TO T EST TWO TIMES DAILY; Duration: 90 Active Klor-Con 10 10 MEQ TAKE 1 TABLET EVERY DAY; Duration: 90 Active metFORMIN HCl 500 MG 2 tab(s) orally 2 t imes a day; Duration: 90 days Active Losartan Potassium 100 MG 1/2 orally once a day Active Pen [place] 32G X 4 MM as directed 09/09/2022 Active Metoprolol Succinate ER 50 MG 1/2 tab orally once a day Active Albuterol Sulfate HFA 108 (90 Base) MCG/ACT 2 puff(s) inhaled every 6 hours Active Aspirin 81 MG 1 tab(s) orally once a day; Duration: 30 day(s) Active Rosuvastatin Calcium 20 MG 1 tablet Orally Once a day Active lamoTRIgine 200 MG 1 tab(s) orally 2 ti mes a day Active Viibryd 40 MG 1 tab(s) orally q AM Active QUEtiapine Fumarate ER 150 MG 1 tab(s) orally once a day (in the evening); Duration: 30 day(s) Active Venlafaxine HCl ER 37.5 MG 1 cap(s) orally once a day; Duration: 30 day(s) Active Prasugrel HCl 10 MG as directed Orally Active Gabapentin 600 MG 4 tablet 2 tabs am 2 tabs pm Active Spironolactone 50 MG 1 tablet Orally Onc e a day Not-Taking Problems Problem Type SNOMED Code ICD Code Onset Dates Problem Status W/U Status Risk Notes Problem Obese class II (713492095495595 ) BMI 37.0-37.9, adult (Z68.37) Active confirmed Problem Morbid obesity (disorder) (840977947) Morbid (severe) obesity due to excess calories (E66.01) Active confirmed Problem Chronic respiratory failure (82082949) Chronic respiratory failure, unspecified whether with hypoxia or hypercapnia (J96.10) Active confirmed Problem Hypertensive heart failure (95495360) Hypertensive heart disease with heart failure (I11.0) Active confirmed Problem Congestive heart failure (07418015) Congestive heart failure, unspecified (I50.9) Active confirmed Problem COPD - Chronic obstructive pulmonary disease (50078916) Chronic obstructive pulmonary disease, unspecified COPD type (J44.9) Active confirmed Vital Signs Blood pressure systolic 150 mm Hg 08/29/19 25 Blood pressure diastolic 90 mm Hg 025 Heart Rate 87 /min 08/28/2024 Height 70 in 08/28/2024 Weight 262.6 lbs 08/28/2024 BMI 37.68 kg/m2 08/28/2024 Encounters Encounter Location Date Provider Diagnosis [facility] [address] [place] [id number] 08/28/2024 Sera Allen Intermittent diarrhe a R19.7 ; Type 2 diabetes mellitus without complication, without long-term current use of insulin E11.9 ; Lower extremity edema R60.0 ; Essential hypertension I10 ; Arteriosclerotic cardiovascular disease I25.10 ; Screening PSA (prostate specific antigen) Z12.5 ; Mixed hyperlipidemia E78.2 ; Morbid (severe) obesity due to excess calories E66.01 ; Chronic bipolar disorder F31.9 ; Chronic respiratory failure, unspecified whether with hypoxia or hypercapnia J96.10 ; Hypertensive heart disease with heart failure I11.0 ; Congestive heart failure, unspecified I50.9 and Chronic obstructive pulmonary disease, unspecified COPD type J44.9 Assessments Encounter Date Diagnosis (ICD Code) Assessment Notes Treatment Notes Treatment Clinical Notes Section Notes 08/28/2024 Intermittent diarrhea (ICD-10 - R19.7) Patient has a c-scope scheduled. 08/28/2024 Type 2 diabetes mellitus without complication, without long-term current use of insulin (ICD-10 - E11.9) 08/28/2024 Lower extremity edema (ICD-10 - R60.0) 08/28/2024 Essential hypertension (ICD-10 - I10) 08/28/2024 Arteriosclerotic cardiovascular disease (ICD-10 - I25.10) 08/28/2024 Screening PSA (prostate specific antigen) (ICD-10 - Z12.5) 08/28/2024 Mixed hyperlipidemia (ICD-10 - E78.2) 08/28/2024 Morbid (severe) obesity due to excess calories (ICD-10 - E66.01) 08/28/2024 Chronic bipolar disorder (ICD-10 - F31.9) 08/28/2024 Chronic respiratory failure, unspecified whether with hypoxia or hypercapnia (ICD-10 - J96.10) 08/28/2024 Hypertensive heart disease with heart failure (ICD-10 - I11.0) 08/28/2024 Congestive heart failure, unspecified (ICD-10 - I50.9) 08/28/2024 Chronic obstructive pulmonary disease, unspecified COPD type (ICD-10 - J44.9) Plan Of Treatment Medication Medication Name Sig Start Date Stop Date Notes Tresiba FlexTouch 200 UNIT/ML 5 units subcutaneously once a day Treatment Notes Assessment Notes Intermittent diarrhea Patient has a c-sc ope scheduled. Pending Test Test Name Order Date P-BNP (Brain Natriuretic Peptide) 2024 Next Appt Details Follow Up: via phone to repo rt test results, Reason: Provider Name:Sera menezes 02/28/2025 09:00:00 AM, [address], [address], [place], [id number], Progress Notes * Leigh BASSETTOB:[birth year] (58 yo M)Acc No.[id number]:08/28/2024 Progress Notes Patient: Milton ATKINS Provider: MARIANNA Starr :1965 A ge:58 Y S ex:Male Date:08/28/2024 Address:[place], [place] Pcp:Todd Alvarado Subjective: * Chief Complaints: * 1 . Possible sugar issues. 2. patient is overdue for KED - Need eGFR and uACR. 3. needs Diabetic Eye Exam. 4. needs colonoscopy - positive Cologuard results in 2022 - no follow up. * HPI: E ndocrinology: The pt is here today withy c/o drops in his glucose. Pt states this is happening daily and is sometimes mornings and other times evenings. Pt states he will drink some orange juice and that will help. * ROS: D ERMATOLOGY: no R eugenia. [...] . Alcohol: no. * Medications: T aking Prasugrel HCl 10 MG Tablet as directed Orally , Taking Gabapentin 600 MG Tablet 4 tablet 2 tabs am 2 tabs pm , Taking Rosuvastatin Calcium 20 MG Tablet [...] orally once a day , Taking Pen [place] 32G X 4 MM Miscellaneous as directed , Taking Metoprolol Succinate ER 50 MG Tablet Extended Release 24 Hour 1/2 tab orally once a day , Taking Droplet Pen [place] 32G X 4 MM Miscellaneous USE DIRECTED , Taking Breztri Aerosphere 160-9-4.8 MCG/ACT Aerosol 2 puffs Inhalation Twice a day , Taking Tresiba FlexTouch 200 UNIT/ML Solution Pen-injector 10 units subcutaneously once a day , Taking Accu-Chek Guide - Strip USE DIRECTED TO TEST TWO TIMES DAILY , Taking Klor- Con 10 10 MEQ Tablet Extended Release TAKE 1 TABLET EVERY DAY , Taking metFORMIN HCl 500 MG Tablet 2 tab(s) orally 2 times a day , Taking Accu-Chek Guide Test - Strip TEST BLOOD SUGAR TWO TIMES DAILY DIRECTED , Taking Omeprazole 40 MG Capsule Delayed Release 1 cap(s) Orally once daily , Taking Furosemide 40 MG Tablet 2 tab orally once a day , Taking Glimepiride 4 MG Tablet 1 tab(s) orally once a day , Not-Taking Spironolactone 50 MG Tablet 1 tablet Orally Once a day * Allergies: H YDROcodone-Acetaminophen. Objective: * Vitals: W t: 262.6, Temp: 98.0, BP: 150/90, HR: 87, O2 Sat: 95% 0n RA, Nurse: KALA, Ht: 70, Repeat BP: 120/80, BMI:37.68. * Examination: G eneral Examination: General Appearance: N AD. H EENT: u nremarkable.?Oral cavity: n o lesions, mucosa moist and WNL, no erythema. N jennifer: s upple, no lymphadenopathy. C hest: n ormal shape and expansion. H eart: R SR. L ungs: c lear to auscultation. A bdomen: b owel sounds present, soft and nontender. N eurologic Exam: I ntact, gait normal. S kin: n ormal, no rash. P eripheral pulses: n ormal (2+) bilaterally. E xtremities: 1 + leg edema bilaterally. Assessment: * Assessment: 1. T ype 2 diabetes mellitus without complication, without long-term current use of insulin - E11.9 (Primary) 2 . I ntermittent diarrhea - R19.7 3 . L ower extremity edema - R60.0 4 . E ssential hypertension - I10 5 . Arteriosclerotic cardiovascular disease - I25.10 6 . S creening PSA (prostate specific antigen) - Z12.5 7 . M ixed hyperlipidemia - E78.2 8 . M orbid (severe) obesity due to excess calories - E66.01 9 . C hronic bipolar disorder - F31.9 1 0. C hronic respiratory failure, unspecified whether with hypoxia or hypercapnia - J96.10 1 1. H ypertensive heart disease with heart failure - I11.0 1 2. C ongestive heart failure, unspecified - I50.9 13. C hronic obstructive pulmonary disease, unspecified COPD type - J44.9 Plan: * Treatment: Value Reference Range A lbumin/Creatinine Ratio, Urine 4 0-30 - ug /mg * C reatinine, Urine 251.0 - mg/dL * M icroalbumin, Urine, Random 0.9 - mg/dL * Sera Allen 08/28/2024 0 4:11:16 PM EDT >room B, purple Yvonne Lira 08/30/2024 12:58:17 PM EDT > See phone encounter ?LAB: Glycohemoglobin A1c (in house) (Collection Date & Time - 08/28/2024)? 5.8* Value Reference Range g lycohemoglobin 5.8% 5 - 6.5 % * Kyung Lechuga 08/28/2024 04 :48:36 PM EDT > Yvonne Lira 08/30/2024 12:58:17 PM EDT > See phone encounter 2.?Intermittent diarrhea?LAB: CBC Venipuncture (in house) (Collection Date & Time - 08/28/2024)? Normal* Value Reference Range w bc 6.8 3.5 - 10 * l ymph 23.6% 15 - 50 * m id 5.1% 2 - 15 * g ran 71.3% 35 - 80 * r bc 5.08 3.5 - 5.5 * h gb 14.3 11.5 - 16.5 * h ct 45.1 35 - 55 * m cv 88.9 75 - 100 * m ch 28.1 25 - 35 * m chc 31.6 31 - 38 * p latlet 119 100 - 400 * Kyung Lechuga 08/28/2024 04 :49:35 PM EDT > Yvonne Lira 08/30/2024 12:58:17 PM EDT > See phone encounter Notes: Patient has a c-scope scheduled.??3.?Lower extremity edema?LAB: P-BNP (Brain Natriuretic Peptide)* Sera Allen 08/28/2024 0 4:11:16 PM EDT >room B, [facility] 4.?Essential hypertension?LAB: P-Comprehensive Metabolic Panel (CMP) (Collection Date & Time - 08/28/2024 03:25 PM)?Normal* Value Reference Range A /G Ratio 1.7 1.1-2.5 - * A lbumin 4.0 3.5-5.3 - g/dL * A lkaline Phosphatase 55 40-129 - IU/L * A LT (SGPT) 12 <5-55 - IU/L * A ST (SGOT) 14 <5-46 - IU/L * B ilirubin, Total 0.2 <0.2-1.2 - mg/dL * B UN 13 6-20 - mg/dL * C alcium 10.1 8.6-10.4 - mg/dL * C hloride 106 97-108 - mmol/L * C O2 25 22-32 - mmol/L * C reatinine 1.29 0.70-1.30 - mg/dL * G lucose 68 65-99 - mg/dL * P otassium 4.3 3.5-5.3 - mmol/L * S odium 143 135-145 - mmol/L * P rotein 6.4 6.0-8.3 - g/dL * e GFR by Creatinine 64 >59 - mL/min/1.73m2 * Sera Allen 08/28/2024 0 4:11:16 PM EDT >room B, Yvonne Bee 08/30/2024 12:58:17 PM EDT > See phone encounter ?LAB: P-TSH reflex to FT4 (Collection Date & Time - 08/28/2024 03:25 PM)? Normal* Value Reference Range T SH reflex to FT4 1.62 0.43-5.25 - mU/L * Sera Allen 08/28/2024 0 4:11:16 PM EDT >room B, Yvonne Bee 08/30/2024 12:58:17 PM EDT > See phone encounter 5.?Mixed hyperlipidemia?LAB: P-Lipid Panel (Collection Date & Time - 08/28/2024 03:25 PM)?trigs 204, hdl 26* Value Reference Range C holesterol / HDL Ratio 3.62 0.00-4.99 - Ratio * C holesterol 94 <200 - mg/dL * H DL Cholesterol 26 L >39 - mg/dL * L DL Cholesterol (Calculation) 27 <130 - mg/d L * L DL/HDL Ratio 1.0 <3.3 - Ratio * N on-HDL Cholesterol 68 <130 - mg/dL * T riglycerides 204 H <150 - mg/dL * Sera Allen 08/28/2024 0 4:11:16 PM EDT >room B, Yvonne Bee 08/30/2024 12:58:17 PM EDT > See phone encounter * Labs: * L ab: proBrain Natriuretic Peptide (Collection Date & Time - 08/28/2024 03:25 PM) N ormal Value Reference Range p roBrain Natriuretic Peptide 43 <300 - pg/mL * [facility], IT support 08/30/2024 05:30:08 : This order was created by the Interface. Yvonne Lira 08/30/2024 12:58:17 PM EDT > See phone encounter * Procedure Codes: G 2211 Complex e/[place], [address] CBC WITH AUTO DIFF, 06510 GLYCATED HEMOGLOBIN TEST, Modifiers: QW , G8950 PREHTN/HTN BP DOC INDCD F/U DOC, G8752 MOST RECENT SYSTOLIC BP < 140MM HG, G8754 MOST RECENT DIASTOLIC BP < 90MM HG, 3044F HG A1C LEVEL LT 7.0% * Follow Up: v ia phone to report test results * Images: Billing Information: * Visit Code: 24663 Office Visit, Est Pt., Level 4. * Procedure Codes: G2211 Complex e/[place]. [address] CBC WITH AUTO DIFF. 91927 GLYCATED HEMOGLOBIN TEST. Modifiers: QW G8950 PREHTN/HTN BP DOC INDCD F/U DOC. G8752 MOST RECENT SYSTOLIC BP < 140MM HG. G8754 MOST RECENT DIASTOLIC BP < 90MM HG. 3044F HG A1C LEVEL LT 7.0%. * Electronic signature of MARIANNA Benito on 10/15/2024 at 10:08 AM EDT Sign off status: Pending * Provider: MARIANNA Starr Date: 0 08/28/2024 Generated for Miguel love/Famary/eTransmitting on: 0 10/15/2024 10:08 AM EDT History and Physical Notes * Examination Category Sub-Category Detail Notes Category Not es General Examination HEENT: unremarkable Heart: RSR Lungs: clear to auscultatio n Abdomen: bowel sounds present , soft and nontender Extremities: 1+ leg edema bilater ally General Appearance: NAD Skin: normal, no rash Neurologic Exam: Intact, gait normal Neck: supple, no lymphaden opathy Oral cavity: no lesions, mucosa m oist and WNL, no erythema Peripheral pulses: normal (2+) bilatera lly Chest: normal shape and exp ansion
--- OUTSIDE RECORDS SUMMARY | 2024-10-15 10:09 | XMS_ITS | Encounter Summary ---
Author Organization [facility] Address [address] [place] [address] Care Team Providers Care Soil Surveyor Name Role Phone Maged Sharma MD Primary Care Provider [phone] Encounter Details Date Type Department Care Team (Late Contact Info) Description 09/19/2024 Orders Only [facility] [address] [phone] Loren Pike CKD (chronic kidney disease) stage 3, GFR 30-59 ml/min (CMS/HCC) (Primary Dx); Vitamin D insufficiency Social History Tobacco Use Types Packs/Day Years Used Date Smoking Tobacco: Every Day Alcohol Use Standard Drinks/Week Comments No 0 (1 standard drink = 0.6 oz pur e alcohol) Sex and Gender Information Value Date Recorded Sex Assigned at Not on file Legal Sex Male 6:51 PM EDT Gender Identity Not on file Sexual Orientation Not on file documented as of this encounter Plan of Treatment Upcoming Encounters Date Type Department Care Team (Late Contact Info) Description 11/01/2024 12:20 PM EDT Office Visit [facility] [address] [place] [address] Guillaume Reeves MD [address] [place] [phone] Scheduled Orders Name Type Priority Associated Diagnoses Orde r Schedule Renal Function Panel, Plasma Lab Routine CKD (chronic kidney disease) stage 3, GFR 30-59 ml/min (CMS/HCC) Expected: 09/19/2024 (Approximate), Expires: 03/22/2026 CBC and Differential Lab Routine CKD (chronic kidney disease) stage 3, GFR 30-59 ml/min (CMS/HCC) Expected: 09/19/2024 (Approximate), Expires: 03/22/2026 Creatinine, Random, Urine Lab Routine CKD (chronic kidney disease) stage 3, GFR 30-59 ml/min ([facility]) Expected: 09/19/2024 (Approximate), Expires: 03/22/2026 Protein, Random, Urine with Creatinine Lab Routine CKD (chronic kidney disease) stage 3, GFR 30-59 ml/min ([facility]) Expected: 09/19/2024 (Approximate), Expires: 03/22/2026 Urinalysis with reflex microscopic (Culture NOT Included) Lab Routine CKD (chronic kidney disease) stage 3, GFR 30-59 ml/min ([facility]) Expected: 09/19/2024 (Approximate), Expires: 03/22/2026 PTH Intact Total Lab Routine CKD (chronic kidney disease) stage 3, GFR 30-59 ml/min ([facility]) Vitamin D insufficiency Expected: 09/19/2024 (Approximate), Expires: 03/22/2026 Vitamin D 25 Hydroxy Lab Routine CKD (chronic kidney disease) stage 3, GFR 30-59 ml/min ([facility]) Vitamin D insufficiency Expected: 09/19/2024 (Approximate), Expires: 03/22/2026 documented as of this encounter Visit Diagnoses Diagnosis CKD (chronic kidney disease) stage 3, GFR 30-59 ml/min ([facility])- Primary Chronic kidney disease, Stage III (moderate) Vitamin D insufficiency documented in this encounter Care Teams Soil Surveyor Relationship Specialty Start Date End Date Maged Sharma MD [address] [place] [address] [place] [address] PCP - General 07/31/20 documented as of this encounter
--- OUTSIDE RECORDS SUMMARY | 2024-10-15 10:09 | XMS_ITS | Clinical Summary ---
Author Organization [facility] Address [address] [place] [address] Phone Care Team Providers Care Clearing Tub Worker Name Role Phone Unavailable Primary Care Provider [...] Tablet by mouth nightly. 90 Tablet 1 09/11/2024 Active LORazepam (ATIVAN) 0.5 mg Oral TabletIndication s:KRYS (generalized anxiety disorder) Take 1 Tablet by mouth every 8 hours as needed for Anxiety. 60 Tablet 3 09/11/2024 Active lamoTRIgine (LAMICTAL) 200 mg Oral TabletIndication s:Mood disorder Take 1 Tablet by mouth 2 times daily. 180 Tablet 1 09/11/2024 Active Active Problems Problem Noted Date Diagnosed [...] 2 - PCV) 01/13/2024 01/12/2023 Influenza Vaccine (#1) 2024 01/22/2019 Meningococcal B Vaccine Aged Out No l onger eligible based on patient's age to complete this topic Insurance [facility] MEDICARE ADVANTAGE MR Member Subscriber Plan / Payer (Ef fective 2024-Present) Name:Milton Bassett Relation to Subscriber:Self Name:Milton Bassett Payer ID:Not on file Group ID:[id number] Type:Not on file Address: [place] [id number]
--- OUTSIDE RECORDS SUMMARY | 2024-10-15 10:09 | XMS_ITS | Clinical Summary ---
Author Organization Healthcare Address [address] [id number] Care Team Providers Care Branch Director Name Role Phone aMged Sharma MD Primary Care Provider [phone] Encounters Date Type Department Care Team Description 09/19/2024 Orders Only [facility] [address] [place] [phone] Loren Pike CKD (chronic kidney disease) stage 3, GFR 30-59 ml/min (CMS/HCC) (Primary Dx); Vitamin D insufficiency from Last 3 Months Family History Medical History Relation Name Comments [...] Description 11/01/2024 12:20 PM EDT Office Visit [facility] [address] [place] [address] Guillaume Reeves MD [address] [place] [phone] Health Maintenance Due Date Last Done Comments [...] 11/30/2011 [facility]-Zoster Vaccines (1 of 2) 2016 [id number] Vaccine (1 - 20 24-25 season) 2023 [facility]-Pneumococcal Vaccine: 50 + Years (2 of 2 - PCV) 01/13/2024 01/12/2023 [facility]-Influenza Vaccine (#1) 2024 HPV Vaccines Aged Out No longer [...] patient's age to complete this topic Insurance MARYANA [employer]ICARE Care Teams Branch Director Relationship Specialty Start Date End Date Maged Sharma MD [address] [place] [address] PCP - General 07/31/20
--- OUTSIDE RECORDS SUMMARY | 2024-10-15 10:09 | XMS_ITS | Patient Health Record ---
[facility] [address] [place] [id number] Care Team Providers Care Shorer Name Role Phone Todd Alvarado Primary Care Provider [phone] Sera Allen Unavailable [phone] Allergies Allergen (clinical drug ingredient) Drug/Non Drug [...] 1.38 Performing Lab: Notes/Report: Test performed by [facility] [facility] , [address], [place] [address] Jez Martines MD, Quality Assurance Representative CLIA: [id number] Sodium 142 135-145 mmol/L Potassium 4.9 3.5-5.3 [...] 29 Performing Lab: Notes/Report: Test performed by [facility], [address] , [address], [place] [address] Jez Martines MD, Quality Assurance Representative CLIA: [id number] Cholesterol 146 <200 mg/dL Triglycerides 378 <150 [...] Interpretation:normal Performing Lab: Notes/Report: Test performed by [facility] [place] [address] [place] [address] Jez Martines MD, Quality Assurance Representative CLIA: [id number] PSA 0.98 <4.00 ng/mL Please note this is an ultrasensitive PSA assay with a lower limit of detection of 0.014 ng/mL. This test is performed by the [employer] ECLIA methodology. Values obtained with different assay methods or kits cannot be directly compared. P-TSH reflex to FT4 Reviewed date:03/28/2024 02:02:50 PM Interpretation:normal Performing Lab: Notes/Report: Test performed by [facility] [address] [place] [address] [address], [place] [address] Jez Martines MD, Quality Assurance Representative CLIA: [id number] TSH reflex to FT4 4.35 0.43-5.25 mU/L [...] employed in healthcare? No Is patient an [facility] employee? N Is patient currently [...] Interpretation:Normal Performing Lab: Notes/Report: Test performed by [facility] [address] [place] [address] , [address], [place] [address] Jez Martines MD, Quality Assurance Representative CLIA: [id number] Sodium 143 135-145 mmol/L Potassium 4.3 3.5-5.3 [...] 26 Performing Lab: Notes/Report: Test performed by [facility] [address] [place] [address] , [address], [place] [address] Jez Martines MD, Quality Assurance Representative CLIA: [id number] Cholesterol 94 <200 mg/dL Triglycerides 204 <150 [...] Interpretation:Normal Performing Lab: Notes/Report: Test performed by [facility] [address] [place] [address] , [address], [place] [address] Jez Martines MD, Quality Assurance Representative CLIA: [id number] TSH reflex to FT4 1.62 0.43-5.25 mU/L P-Microalbumin/Creatinine, R andom Urine Sample Reviewed date:08/30/2024 12:58:29 PM Interpretation:Normal Performing Lab: Notes/Report: Test performed by [facility], [address] , [address], [place] [address] Jez Martines MD, Quality Assurance Representative CLIA: [id number] Albumin/Creatinine Ratio, Urine 4 0-30 ug/mg Microalbumin, Urine, Random 0.9 Creatinine, Urine 251.0 proBrain Natriuretic Peptide Reviewed date:08/30/2024 12:58:29 PM Interpretation:Normal Performing Lab: Notes/Report: Test performed by [facility] [address] , [address], [place] [id number] Jez Martines MD, Quality Assurance Representative CLIA: [id number] proBrain Natriuretic Peptide 43 <300 pg/mL Please note the updated reference range values which are stratified by age. Positive >900 pg/mL Indeterminate 300-900 pg/mL Negative <300 pg/mL Medications Medication SIG (Take, Route, Frequency, Duration) Notes Start Date End Date Status Omeprazole 40 MG 1 cap(s) Orally once daily; Duration: 90 days Active Losartan Potassium 100 MG 1/2 orally once a day Active Furosemide 40 MG 2 tab orally once a day; Duration: 90 days Active Prasugrel HCl 10 MG as directed Orally Active Pen Confluence 32G X 4 MM as directed 09/09/2022 [...] Onc e a day Not-Taking Droplet Pen Confluence 32G X 4 MM USE DIRECTED; Duration: 90 Active Rosuvastatin Calcium 20 MG 1 tablet Orally Once a day Active Breztri Aerosphere 160-9-4.8 MCG/ACT 2 puffs Inhalation Twice a day Active lamoTRIgine 200 MG 1 tab(s) orally 2 ti mes a day Active Viibryd 40 MG 1 tab(s) orally q AM Active Accu-Chek Guide - USE DIRECTED TO T EST TWO TIMES DAILY; Duration: 90 Active QUEtiapine Fumarate ER 150 MG 1 tab(s) orally once a day (in the evening); Duration: 30 day(s) Active Klor-Con 10 10 MEQ TAKE 1 TABLET EVERY DAY; Duration: 90 Active Venlafaxine HCl ER 37.5 MG 1 cap(s) orally once a day; Duration: 30 day(s) Active metFORMIN HCl 500 MG 2 tab(s) orally 2 t imes a day; Duration: 90 days Active Albuterol Sulfate HFA 108 (90 Base) MCG/ACT 2 puff(s) inhaled every 6 hours Active Accu-Chek Guide Test - TEST BLOOD SUGAR TWO TIMES DAILY DIRECTED; Duration: 90 Active Aspirin 81 MG 1 tab(s) orally once a day; Duration: 30 day(s) Active Immunizations Vaccine Route Administration Date Status Comme nts PNEUMOVAX 23 VACCINE IM Intramuscular 01/12/2023 Administe red DT, 7 YEARS OR OLDER Unknown 05/23/1996 Administered Problems Problem Type SNOMED Code ICD Code Onset Dates Problem Status W/U Status Risk Notes Problem Hyperglycemia (07455471) Hyperglycemia (R73.9) Active confirmed Problem Essential hypertension (46290003) Essential hypertension (I10) Active confirmed Problem Onychogryposis (81886721) Onychogryposis (L60.2) Active confirmed Problem Morbid obesity (disorder) (668312023) Morbid (severe) obesity due to excess calories (E66.01) Active confirmed Problem Type 2 diabetes mellitus with other specified complication (E11.69) Active confirmed Problem Mixed hyperlipidemia (275048462) Mixed hyperlipidemia (E78.2) Active confirmed Problem Hypertensive heart failure (14869191) Hypertensive heart disease with heart failure (I11.0) Active confirmed Problem Simple chronic bronchitis (92664147) Simple chronic bronchitis (J41.0) Active confirmed Problem Chronic respiratory failure (53733724) Chronic respiratory failure, unspecified whether with hypoxia or hypercapnia (J96.10) Active confirmed Problem Onychomycosis (828486972) Onychomycosis (B35.1) Active confirmed Problem Arteriosclerotic vascular disease (96816565) Arteriosclerotic cardiovascular disease (I25.10) Active confirmed Problem Congestive heart failure (48398276) Congestive heart failure, unspecified (I50.9) Active confirmed Problem Long-term current use of insulin (705004118) custodial (current) use of insulin (Z79.4) Active confirmed Problem COPD - Chronic obstructive pulmonary disease (05028758) Chronic obstructive pulmonary disease, unspecified COPD type (J44.9) Active confirmed Problem Obese class II (901085296872954) BMI 37.0-37.9, adult (Z68.37) Active confirmed Problem Pneumonia (732169583) Pneumonia of both lower lobes due to infectious organism (J18.9) Active confirmed Problem Hyperglycemia due to type 2 diabetes mellitus (743265667937235) Type 2 diabetes mellitus with hyperglycemia, without long-term current use of insulin (E11.65) Active confirmed Problem Peripheral venous insufficiency (29321864) Stasis dermatitis of both legs (I87.2) Active confirmed Problem Obese class II (542892234341786) Adult BMI 35.0-35.9 kg/sq m (Z68.35) Active confirmed Problem Hyperglycemia due to type 2 diabetes mellitus (372177186248748) Type 2 diabetes mellitus with hyperglycemia, unspecified whether chcf insulin use (E11.65) Active confirmed Problem Plain X-ray of chest abnormal (finding) (9390962401) Abnormal chest x-ray (R93.89) Active confirmed Problem Diastolic dysfunction (2222383) Diastolic dysfunction (I51.89) Active confirmed Problem Gastroesophageal reflux disease (134850148) Gastroesophageal reflux disease, unspecified whether esophagitis present (K21.9) Active confirmed Problem Stasis dermatitis of lower limb due to chronic peripheral venous hypertension (disorder) (065324014) Stasis dermatitis of lower extremity due to chronic peripheral vascular hypertension (I87.329) Active confirmed Vital Signs Heart Rate 87 /min 08/28/2024 Blood pressure diastolic 90 mm Hg 08/28/2024 Height 70 in 08/28/2024 Blood pressure systolic 150 mm Hg 08/28/2024 Weight 262.6 lbs 08/28/2024 BMI 37.68 kg/m2 08/28/2024 Encounters Encounter Location Date Provider Diagnosis [facility] [address] [facility] [address] [place] [id number] 03/27/2024 Sera Allen Essential hypertensi on I10 ; Arteriosclerotic cardiovascular disease I25.10 ; Type 2 diabetes mellitus with other specified complication E11.69 ; Mixed hyperlipidemia E78.2 ; Screening PSA (prostate specific antigen) Z12.5 and Encounter for screening colonoscopy Z12.11 [place] [address] [facility] [address] [place] [id number] 04/18/2024 Sera Allen Acute URI J06.9 and Bronchitis J40 [facility] [address] [place] [id number] 08/28/2024 Sera Allen Intermittent diarrhe a R19.7 [...] obstructive pulmonary disease, unspecified COPD type J44.9 [facility] [address] [facility] [address] [place] [id number] 03/28/2024 Sera Allen [place] [address] [facility] [address] [place], [place] [id number] 04/18/2024 Sera Crow[place]imi [facility] [address] [facility] [address] [place], [place] [id number] 05/08/2024 Todd Dennison Gastroesophageal ref lux disease, unspecified whether esophagitis present K21.9 [facility] [address] [facility] [address] [place], [place] [id number] 07/26/2024 Toddpamela Alvarado Lower extremity clifford a R60.0 [facility] [address] [place], [place] [id number] 08/09/2024 Todd [facility] [address] [facility] [address] [place] [id number] 08/30/2024 Sera Allen Assessments Encounter Date Diagnosis (ICD Code) Assessment Notes Treatment Notes Treatment Clinical Notes Section Notes 03/27/2024 Essential hypertension (ICD-10 - I10) 04/18/2024 Bronchitis (ICD-10 - J40) Pt has a nebulizer at home and will start doing treatments 4 times a day. 04/18/2024 Acute URI (ICD-10 - J06.9) Patient has cough medication at home. 05/08/2024 Gastroesophageal reflux disease, unspecified whether esophagitis present (ICD-10 - K21.9) 07/26/2024 Lower extremity edema (ICD-10 - R60.0) 03/27/2024 Arteriosclerotic cardiovascular disease (ICD-10 - I25.10) 08/28/2024 Type 2 diabetes mellitus without complication, without long-term current use of insulin (ICD-10 - E11.9) 08/28/2024 Intermittent diarrhea (ICD-10 - R19.7) Patient has a c-scope scheduled. 08/28/2024 Lower extremity edema (ICD-10 - R60.0) 03/27/2024 Type 2 diabetes mellitus with other specified complication (ICD-10 - E11.69) 03/27/2024 Mixed hyperlipidemia (ICD-10 - E78.2) 08/28/2024 Essential hypertension (ICD-10 - I10) 03/27/2024 Screening PSA (prostate specific antigen) (ICD-10 - Z12.5) 08/28/2024 Arteriosclerotic cardiovascular disease (ICD-10 - I25.10) 03/27/2024 Encounter for screening colonoscopy (ICD-10 - Z12.11) 08/28/2024 Screening PSA (prostate specific antigen) (ICD-10 [...] Peptide) 2024 Next Appt Details Provider Name:Sera Nixon Duke menezes, 02/28/2025 09:00:00 AM, [address] [facility] [address] [facility], [address], [place], [place], [id number], Insurance Providers Payer Name Payer Address Payer Phone Subscriber Number Group Number Insured Name Patient Relationship to Insured Coverage Start Date Coverage End Date [employer] [address] [place] [address] [phone] [id number] Milton Kohler Self - patient is the insured [employer] [address] [place] [address] [phone] [id number] Milton Kohler Self - patient is the insured Medical (General) History Medical History History ICD Code COPD enlarged heart HBP Depression, bipolar Arthritis T2DM Surgical History Surgery Date(Month/Year) Bilateral Knee 07/2006 Nerve Stimulator Knee x6 Back Hospitalization History Reason Date(Month/Year)
--- NOTE | 2024-10-15 10:30 | MR_ITS ---
APPROVED REPORT Fire Production Operator: CLINICAL INDICATION Increased LV wall thickness, suspected RV dilation TECHNIQUE Image Acquisition: Cardiac magnetic resonance (CMR) was performed on Siemens Espree MRI 1.5T scanner. Software platform sequences were performed using the Siemens [employer]le[employer] MR B19 platform. A set of three-plane, low-resolution, large [id number] localizers were initially acquired. Then axial, coronal, sagittal TrueFISP, as well as axial HASTE images, were obtained. These were followed by gated TrueFISP breathold cinematic sequences obtained in the short axis with 8 mm slices and 2 mm gaps, 2-chamber (vertical long axis), 3-chamber, 4-chamber (horizontal long axis). A bolus of contrast was injected intravenously with first-pass sequences obtained in the short axis and four-chamber planes. After approximately 10 minutes, a TI sheet metal journeyman sequence was performed to determine the optimal TI time. Using the optimized TI time, delayed contrast enhancement segmented inversion???recovery TurboFLASH sequences were obtained in the short axis, 2-chamber, 3-chamber, and 4-chamber projections. 2D-velocity phase mapping was performed. Functional parameters were calculated by offline analysis on an independent workstation ([employer] Platform, CVIConjure). Contrast: ProHance??? (Gadoteridol) FINDINGS MORPHOLOGY AND FUNCTION Left ventricle: The left ventricle is normal in size. The indexed left ventricular end-diastolic volume (LVEDVi) is 59 ml/m2 (reference range 57-105 ml/m2 in males, 56-96 ml/m2 in females). Normal left ventricular systolic function is present. There is increased left ventricular wall thickness (maximum 12.2 mm). There are no regional wall motion abnormalities noted. LVEF is calculated at 52.3% (reference range 57-77%). Right ventricle: The right ventricle is normal in size. The indexed right ventricular end-diastolic volume (RVEDVi) is 58 ml/m2 (reference range 61-121 ml/m2 in males, 48-112 ml/m2 in females). Normal right ventricular systolic function is present. RVEF is calculated at 50.3% (reference range 52-72% in males, 51-71% in females). Atria: The left atrium is normal in size. The maximum indexed left atrial volume is 32 ml/m2 (reference range 26-52 ml/m2 in males, 27-53 ml/m2 in females). The right atrium is normal in size. The maximum indexed right atrial volume is 18 ml/m2 (reference range 18-90 ml/m2). Aorta: The diameter of the aortic annulus is normal, measuring 28 mm (coronal view reference range 21-30 mm in males, 19-27 mm in females). The diameter of the aortic sinus is normal, measuring 36 mm (coronal view reference range 25-42 mm in males, 24-36 mm in females). The diameter of the sinotubular junction is normal, measuring 30 mm (coronal view reference range 18-32 mm in males, 18-28 mm in females). The diameters of the ascending and descending thoracic aorta are normal. Main pulmonary artery: The main pulmonary artery diameter is normal. Pericardium: The pericardial thickness is normal. The pericardial thickness measures 1.5 mm (normal < 4.0 mm). There is no pericardial effusion. VALVES The valvular morphologies in the visualized sequences appear normal. There is no significant valvular stenosis or regurgitation of the mitral, aortic, tricuspid, or pulmonic valve noted visually. Systolic anterior motion of the mitral valve is not visualized. Ratio of pulmonary to systemic flow, Qp:Qs ratio = 1.1 (normal < or = 1.2, hemodynamically significant shunt > 1.5), demonstrating no evidence of hemodynamically significant shunt. TISSUE CHARACTERIZATION Resting Perfusion: Normal myocardial blood flow at rest. No evidence of resting hypoperfusion. Myocardial Fibrosis and/or edema: Normal gadolinium kinetics are present. No evidence of late gadolinium enhancement is noted, consistent with absence of myocardial scarring, infarction, or necrosis. T2-weighted imaging demonstrates no evidence of myocardial edema or inflammation. OTHER No other significant findings are noted. However, this exam is focused on the cardiac structure and function. IMPRESSION Normal LV size with normal LV systolic function. LVEDVi= 59 ml/m2 and LVEF= 52.3%. Mild increase in LV wall thickness (maximum 12.2 mm). Normal RV size with normal RV systolic function. RVEDVi= 58 ml/m2 and RVEF= 50.3%. No atrial enlargement. No CMR evidence of myocardial scarring, infarction, or necrosis. No evidence of myocardial edema or inflammation. Perfusion analysis demonstrates normal blood flow at rest with no evidence of resting hypoperfusion. Ratio of pulmonary to systemic flow, Qp:Qs ratio = 1.1 (normal < or = 1.2, hemodynamically significant shunt > 1.5), demonstrating no evidence of hemodynamically significant shunt. Overall, this CMR demonstrates normal biventricular size and systolic function. No evidence of fibrosis, myocardial scarring, or prior infarct. No evidence of infiltrative or hypertrophic cardiomyopathy. COMPARISON None CRITICAL RESULT None COMMUNICATION As above The findings of this cardiac MR were reviewed, reported, and signed by Steven Abebe MD (Low Voltage Technician). Conclusion Electronically signed by : Christy Abebe MD 10/22/2024 02:49:15
--- NOTE | 2024-10-15 10:40 | XR_ITS ---
FINAL REPORT CLINICAL HISTORY: R/O METAL IN EYES FINDINGS: ORBITS Look up and look down views were obtained. No fracture is identified. The sinuses are clear. No metallic foreign body is identified projecting over the orbits. IMPRESSION: No metallic foreign body projecting to the orbits. Reviewed, Interpreted and Dictated by Miladys Yun MD Transcribed by Noa Scott Authenticated and [facility]
[2024-10-15 10:44] LABS: Blood Urea Nitrogen 13 mg/dl (9-20); Creatinine,Serum 1.30 mg/dl (0.66-1.25); Estimated Glomerular Filt Rate 57 ml/min (>60); GFR (African American) 69 ML/MIN (>60)
[2024-10-15] MEDS: SODIUM CHLORIDE 0.9% 10ML SYR (RAD ONLY) 10 ML IV (12:27)
[2024-10-15] MEDS: GADOTERIDOL INJ 10ML SYRINGE 5 ML IV (12:27)
[2024-10-15] MEDS: GADOTERIDOL INJ 20ML SYRINGE 20 ML IV (12:27)
[2024-10-15] MEDS: 0.9 % SODIUM CHLORIDE 50 ML VIAL 20 ML IV (12:27)
== END 2024-10-15 23:59 | disposition home or self-care (01) ==
LOC: RAD 10:03
PROVIDERS: PCP Nurse Practitioner Family; Visit Provider Nurse Practitioner Family
DX: I11.9 Hypertensive heart disease without heart failure (principal); I25.10 Atherosclerotic heart disease of native coronary artery without angina pectoris; I42.8 Other cardiomyopathies; Z04.89 Encounter for examination and observation for other specified reasons
CPT/HCPCS: 36415; 70200; 75561; 82565; 84520; A9576

== ENCOUNTER 2024-10-28 09:46 | Outpatient (CLI) | payer MEDICARE, SELFPAY ==
--- OUTSIDE RECORDS SUMMARY | 2017-08-03 04:50 | XMS_ITS | Continuity of Care Document ---
Author Organization [facility]ice Address [address] [address] Phone Care Team Providers Care Adjunct Communications Faculty Member Name Role Phone Ronald NANCE Sal ROSADO [...] route every day 81 MG - Active VITAMIN D3 (unknown strength) 50,000 units 2 times a week Not Available - Active isosorbide mononitrate ER 120 mg tablet,extended release 24 hr take 1 tablet by oral route every day in the morning 120 MG - Active quetiapine 100 mg tablet take 1 tablet by oral route every day 100 MG - Active donepezil 5 mg tablet take 1 tablet by oral route every day in the evening 5 MG - Active duloxetine 60 mg capsule,delayed release take 1 capsule by oral route every day 60 MG - Active clonazepam 0.5 mg tablet take 1 tablet by oral route 2 times every day 0.5 MG - Active losartan 100 mg tablet take 1 tablet by oral route every day 100 MG - Active lamotrigine 200 mg tablet take [...] Copied on Encounter Office/outpa tient visit,anthony, jaison [facility], [address] [place] [address], [id number], tel:[phone] [facility] Dyspnea (chief complaint)Ed dean [...] unspecified heart failure type 8 Ronald Huang. [address] [place] [address], [id number], . tel:[phone] Referring Provider: Sal Cardenas, [address] [place] [address], [id number]. tel:[phone] Family History Family Member Type Diagnosis Age At Onset Mother Problem (finding) coronary arterioscleros is Payers Payer name Insurance type Covered constitution party ID Authorwadea carolineabhi(s) Lonnie KRISTIAN [id number] Social History Type Description Quantity Date Captured [...]
--- OUTSIDE RECORDS SUMMARY | 2024-03-27 05:45 | XMS_ITS ---
Author Organization [facility] Address [address] [place] [id number] Care Team Providers Care Clean In Places Operator Name Role Phone Todd Alvarado Primary Care Provider Sera Allen Unavailable [phone] Allergies Allergen (clinical drug ingredient) Drug/Non Drug [...] 1.38 Performing Lab: Notes/Report: Test performed by [facility]0 [facility] , [address], [place] [address] Jez Martines MD, Weather Clerk CLIA: [id number] Sodium 142 135-145 mmol/L Potassium 4.9 3.5-5.3 [...] 29 Performing Lab: Notes/Report: Test performed by [employer], [employer] [address] [place] [address] , [address], [place] [address] Jez Martines MD, Weather Clerk CLIA: [id number] Cholesterol 146 <200 mg/dL Triglycerides 378 <150 [...] Interpretation:normal Performing Lab: Notes/Report: Test performed by [facility] [address] [place] [address] [place] [address] Jez Martines MD, Weather Clerk CLIA: [id number] PSA 0.98 <4.00 ng/mL Please note this is an ultrasensitive PSA assay with a lower limit of detection of 0.014 ng/mL. This test is performed by the Ferm[place] ECLIA methodology. Values obtained with different assay methods or kits cannot be directly compared. P-TSH reflex to FT4 Reviewed date:03/28/2024 02:02:50 PM Interpretation:normal Performing Lab: Notes/Report: Test performed by [facility] [address] [place] [address] [place] [address] Jez Martines MD, Weather Clerk CLIA: [id number] TSH reflex to FT4 4.35 0.43-5.25 mU/L REASON FOR VISIT check up, Needs labs with PSA, colonoscopy due to positive cologuard, diabetic eye exam, & flu vaccine Medications Medication SIG (Take, Route, Frequency, Duration) Notes Start Date End Date Status Ariadna Aerosphere 160-9-4.8 MCG/ACT 2 puffs Inhalation Twice a day Active Droplet Pen [place] 32G X 4 MM USE DIRECTED; Duration: 90 Active Furosemide 40 MG 1/2 tab orally once a day Active Farxiga 10 MG 1 tab(s) orally once a day; Duration: 30 day(s) 07/05/2021 Active Omeprazole 40 MG 1 cap(s) Orally once daily; Duration: 90 days Active Albuterol Sulfate HFA 108 (90 Base) MCG/ACT 2 puff(s) inhaled every 6 hours Active Pen [place] 32G X 4 MM as directed 09/09/2022 [...] Encounter Location Date Provider Diagnosis [facility] [facility] 36 [facility] [address] [place] [id number] 03/27/2024 Sera Allen Essential hypertensi on I10 [...] Wall y, 02/28/2025 09:00:00 AM, [address] [facility], [address], [place], [phone], Progress Notes * Leigh SANDOVALOB:[birth year] (58 yo M)Acc No.[id number]:03/27/2024 Progress Notes Patient: Milton ATKINS Provider: MARIANNA Starr :1965 A ge:58 Y S ex:Male Date:03/27/2024 Address:[place], [id number] Pcp:Todd Alvarado Subjective: * Chief Complaints: * [...] orally once a day , Taking Pen [place] 32G X 4 MM Miscellaneous as directed , Taking Metoprolol Succinate ER 50 MG Tablet Extended Release 24 Hour 1/2 tab orally once a day , Taking Farxiga 10 MG Tablet 1 tab(s) orally once a day , Taking Omeprazole 40 MG Capsule Delayed Release 1 cap(s) Orally once daily , Taking Droplet Pen [place] 32G X 4 MM Miscellaneous USE DIRECTED [...] G 2211 Complex e/[place], [address] CAPILLARY BLOOD DRAW, 93876 GLYCATED HEMOGLOBIN TEST, Modifiers: QW , 87174 CBC WITH AUTO DIFF, 70842 VENIPUNCT, ROUTINE* * Follow Up: v ia phone to report test results * Images: Billing Information: * Visit Code: 61112 Office Visit, Est Pt., Level 4. * Procedure Codes: G2211 Complex e/[place]. [address] CAPILLARY BLOOD DRAW. 49248 GLYCATED HEMOGLOBIN TEST. Modifiers: QW 02093 CBC WITH AUTO DIFF. 28413 VENIPUNCT, ROUTINE*. * Electronic signature of MARIANNA Benito on 10/28/2024 at 09:51 AM EDT Sign off status: Pending * Provider: MARIANNA Starr Date: 0 03/27/2024 Generated for Miguel love/Rodney/eTransmitting on: 0 10/28/2024 09:51 AM EDT History and Physical Notes * [...]
--- OUTSIDE RECORDS SUMMARY | 2024-04-18 07:00 | XMS_ITS ---
Author Organization [facility]-[place] Address [address] [place] [phone] Care Team Providers Care Nuclear Process Engineer Name Role Phone Todd Alvarado Primary Care Provider eSra Allen Unavailable [phone] Allergies Allergen (clinical drug ingredient) Drug/Non Drug [...] employed in healthcare? No Is patient an [facility] employee? N Is patient currently hospitalized? No [...] daily; Duration: 90 days Active Droplet Pen [place] 32G X 4 MM USE DIRECTED; Duration: 90 Active Furosemide 40 MG 1/2 tab orally once a day Active Breztri Aerosphere 160-9-4.8 MCG/ACT 2 puffs Inhalation Twice a day Active Pen [place] 32G X 4 MM as directed 09/09/2022 [...] [address] [place] [phone] 04/18/2024 Sera Allen Acute URI J06.9 and [...] [address], [address], [place], [phone], Progress Notes * Leigh BASSETTOB:[birth year] (58 yo M)Acc No.[id number]:04/18/2024 Progress Notes Patient: Tiffani Milton ASHTON Provider: MARIANNA Starr :1965 A ge:58 Y S ex:Male Date:04/18/2024 Address:[address] [place], [id number] Pcp:Todd Alvarado Subjective: * Chief Complaints: * [...] orally once a day , Taking Pen [place] 32G X 4 MM Miscellaneous as directed , Taking Metoprolol Succinate ER 50 MG Tablet Extended Release 24 Hour 1/2 tab orally once a day , Taking Farxiga 10 MG Tablet 1 tab(s) orally once a day , Taking Omeprazole 40 MG Capsule Delayed Release 1 cap(s) Orally once daily , Taking Droplet Pen [place] 32G X 4 MM Miscellaneous USE DIRECTED [...] * Procedure Codes: 9 [address] [place], [address] CAPILLARY BLOOD DRAW, 74703 CBC WITH AUTO DIFF, 17585 COVID TEST IN HOUSE, Modifiers: QW * Follow Up: v ia phone to report test results * Images: Billing Information: * Visit Code: 87353 Office Visit, Est Pt., Level 3. * Procedure Codes: [address] [place]. [address] CAPILLARY BLOOD DRAW. 72731 CBC WITH AUTO DIFF. 46805 COVID TEST IN HOUSE. Modifiers: QW * Electronic signature of MARIANNA Benito on 10/28/2024 at 09:50 AM EDT Sign off status: Pending * Provider: MARIANNA Starr Date: 0 04/18/2024 Generated for Miguel love/Rodney/eTransmitting on: 0 10/28/2024 09:50 AM EDT History and Physical Notes * [...]
--- OUTSIDE RECORDS SUMMARY | 2024-08-28 11:45 | XMS_ITS ---
Author Organization [facility] Address [address] [place] [id number] Care Team Providers Care High Scaler Name Role Phone Todd Alvarado Primary Care Provider [phone] Sera Allen Unavailable [phone] Allergies Allergen (clinical drug ingredient) Drug/Non Drug [...] Interpretation:Normal Performing Lab: Notes/Report: Test performed by [facility] [address] [facility] , [address], [place] [address] Jez Martines MD, Pavilion Cutter CLIA: [id number] Sodium 143 135-145 mmol/L Potassium 4.3 3.5-5.3 [...] 26 Performing Lab: Notes/Report: Test performed by [facility], [address] , [address], [place] [address] Jez Martines MD, Pavilion Cutter CLIA: [id number] Cholesterol 94 <200 mg/dL Triglycerides 204 <150 [...] Interpretation:Normal Performing Lab: Notes/Report: Test performed by [facility] [address] [place], [place] [address] [place] , [place] [address] Jez Martines MD, Pavilion Cutter CLIA: [id number] TSH reflex to FT4 1.62 0.43-5.25 mU/L P-Microalbumin/Creatinine, R andom Urine Sample Reviewed date:08/30/2024 12:58:29 PM Interpretation:Normal Performing Lab: Notes/Report: Test performed by [facility] [address] [place] [address] , [place] [address] Jez Martines MD, Pavilion Cutter CLIA: [id number] Albumin/Creatinine Ratio, Urine 4 0-30 ug/m g Microalbumin, Urine, Random 0.9 Creatinine, Urine 251.0 proBrain Natriuretic Peptide Reviewed date:08/30/2024 12:58:29 PM Interpretation:Normal Performing Lab: Notes/Report: Test performed by [facility], [address] , [address], [place] [address] Jez Martines MD, Pavilion Cutter CLIA: [id number] proBrain Natriuretic Peptide 43 <300 pg/mL Please [...] DAILY DIRECTED; Duration: 90 Active Droplet Pen [place] 32G X 4 MM USE DIRECTED; Duration: [...] 1/2 orally once a day Active Pen [place] 32G X 4 MM as directed 09/09/2022 [...] Status Risk Notes Problem Obese class II (923192088589238 ) BMI 37.0-37.9, adult (Z68.37) Active confirmed Problem Morbid obesity (disorder) (753354208) Morbid (severe) obesity due to excess calories (E66.01) Active confirmed Problem Chronic respiratory failure (32314460) Chronic respiratory failure, unspecified whether with hypoxia or hypercapnia (J96.10) Active confirmed Problem Hypertensive heart failure (79014778) Hypertensive heart disease with heart failure (I11.0) Active confirmed Problem Congestive heart failure (23946483) Congestive heart failure, unspecified (I50.9) Active confirmed Problem COPD - Chronic obstructive pulmonary disease (34617398) Chronic obstructive pulmonary disease, unspecified COPD type (J44.9) Active confirmed Vital Signs Blood pressure systolic 150 mm Hg 08/29/19 25 Blood pressure diastolic 90 mm Hg 025 Heart Rate 87 /min 08/28/2024 Height 70 in 08/28/2024 Weight 262.6 lbs 08/28/2024 BMI 37.68 kg/m2 08/28/2024 Encounters Encounter Location Date Provider Diagnosis [facility] [address] [place] [id number] 08/28/2024 Sera Allen Intermittent diarrhe a R19.7 [address], [place], [id number], Progress Notes * Leigh BASSETTOB:[birth year] (58 yo M)Acc No.[id number]:08/28/2024 Progress Notes Patient: Milton ATKINS Provider: MARIANNA Starr :1965 A ge:58 Y S ex:Male Date:08/28/2024 Address:[place], [id number] Pcp:Todd Alvarado Subjective: * Chief Complaints: * [...] orally once a day , Taking Pen [place] 32G X 4 MM Miscellaneous as directed , Taking Metoprolol Succinate ER 50 MG Tablet Extended Release 24 Hour 1/2 tab orally once a day , Taking Droplet Pen [place] 32G X 4 MM Miscellaneous USE DIRECTED [...] 08/28/2024 0 4:11:16 PM EDT >room B, formerly [facility] 4.?Essential hypertension?LAB: P-Comprehensive Metabolic Panel (CMP) (Collection [...] Natriuretic Peptide 43 <300 - pg/mL * [facility], IT support 08/30/2024 05:30:08 : This order was created by the Interface. Yvonne Lira 08/30/2024 12:58:17 PM EDT > See phone encounter * Procedure Codes: G 2211 Complex e/[place], [address] CBC WITH AUTO DIFF, 21007 GLYCATED HEMOGLOBIN TEST, Modifiers: QW , G8950 PREHTN/HTN BP DOC INDCD F/U DOC, G8752 MOST RECENT SYSTOLIC BP < 140MM HG, G8754 MOST RECENT DIASTOLIC BP < 90MM HG, 3044F HG A1C LEVEL LT 7.0% * Follow Up: v ia phone to report test results * Images: Billing Information: * Visit Code: 75765 Office Visit, Est Pt., Level 4. * Procedure Codes: G2211 Complex e/[place]. [address] CBC WITH AUTO DIFF. 04911 GLYCATED HEMOGLOBIN TEST. Modifiers: QW G8950 PREHTN/HTN [...] Generated for Jose Mariai ng/Farossg/eTransmitting on: 0 10/28/2024 09:51 AM EDT History [...]
[2024-10-28 09:51] LABS: Microscopic, Urine URINE MICROSCOPIC (MICROSCOPIC)
--- OUTSIDE RECORDS SUMMARY | 2024-10-28 09:51 | XMS_ITS | Encounter Summary ---
Author Organization Healthcare Address [address] [place] [address] Care Team Providers Care Supervisor Leaf [place] Repair Name Role Phone Maged Sharma MD Primary Care Provider [phone] Encounter Details Date Type Department Care Team (Late Contact Info) Description 09/19/2024 Orders Only [facility] [address] [phone] [place] Pike [...] Description 11/01/2024 12:20 PM EDT [facility] Visit [facility] [address] [phone] Guillaume Reeves MD [address] [place] [phone] Scheduled Orders Name Type Priority Associated Diagnoses [...] kidney disease) stage 3, GFR 30-59 ml/min ([facility]) Expected: 09/19/2024 (Approximate), Expires: 03/22/2026 Protein, Random, Urine with Creatinine Lab Routine CKD (chronic kidney disease) stage 3, GFR 30-59 ml/min ([facility]) Expected: 09/19/2024 (Approximate), Expires: 03/22/2026 Urinalysis with reflex microscopic (Culture NOT Included) Lab Routine CKD (chronic kidney disease) stage 3, GFR 30-59 ml/min ([facility]) Expected: 09/19/2024 (Approximate), Expires: 03/22/2026 PTH Intact Total Lab Routine CKD (chronic kidney disease) stage 3, GFR 30-59 ml/min ([facility]) Vitamin D insufficiency Expected: 09/19/2024 (Approximate), Expires: 03/22/2026 Vitamin D 25 Hydroxy Lab Routine CKD (chronic kidney disease) stage 3, GFR 30-59 ml/min ([facility]) Vitamin D insufficiency Expected: 09/19/2024 (Approximate), Expires: 03/22/2026 documented as of this encounter Visit Diagnoses Diagnosis CKD (chronic kidney disease) stage 3, GFR 30-59 ml/min ([facility])- Primary Chronic kidney disease, Stage III (moderate) Vitamin D insufficiency documented in this encounter Care Teams Supervisor Leaf Spring Repair Relationship Specialty Start Date End Date Maged Sharma MD [address] [place] [address] [place] [address] PCP - General 07/31/20 documented as of this encounter
--- OUTSIDE RECORDS SUMMARY | 2024-10-28 09:51 | XMS_ITS | Clinical Summary ---
Author Organization [facility][1] Address [address] [place] [address] Phone Care Team Providers Care Information Security Associate Name Role Phone Unavailable Primary Care Provider [...] patient's age to complete this topic Insurance [facility] MEDICARE ADVANTAGE MR Member Subscriber Plan / Payer (Ef fective 2024-Present) Name:Milton Bassett Relation to Subscriber:Self Name:Milton Bassett Payer ID:Not on file Group ID:[id number] Type:Not on file Address: [place] [phone]
--- OUTSIDE RECORDS SUMMARY | 2024-10-28 09:52 | XMS_ITS | Clinical Summary ---
Author Organization Healthcare Address [address] [id number] Care Team Providers Care Stretching Machine Operator Name Role Phone Maged Sharma MD Primary Care Provider [phone] Encounters Date Type Department Care Team Description 09/19/2024 Orders Only [facility] [address] [place] [...] Description 11/01/2024 12:20 PM EDT Office Visit [facility] [address] [place] [phone] Guillaume Reeves MD [address] [place] [phone] Health Maintenance Due Date Last Done Comments [facility]-Depression Screening 1966 [facility]-HIV Screening 1966 [facility]-Hepatitis C Screening 1966 [facility]-Medicare Annual Wellness (AWV) 1966 [facility]-/Child/Adol SDOH Screenings 1966 [facility]- SDOH Screenings 1984 [facility]-Adult SDOH Screenings 1984 [facility]-Hepatitis B Vaccines (1 of 3 - 19+ 3-dose series) 1985 [facility]-DTaP,Tdap,and Td Vaccine s (1 - Tdap) 05/24/1996 05/23/1996 CT Colonography 11/30/2011 Colonoscopy 11/30/2011 FIT-DNA 11/30/2011 FIT 11/30/2011 FOBT 11/30/2011 Sigmoidoscopy 11/30/2011 [facility]-Colorectal Cancer Screening 11/30/2011 [facility]-Zoster Vaccines (1 of 2) 2016 [id number] Vaccine (1 - 20 24-25 season) 2023 [...] this topic Insurance MARYANA MEDICARE Care Teams Stretching Machine Operator Relationship Specialty Start Date End Date Maged Sharma MD [address] [address] PCP - General 07/31/20
--- OUTSIDE RECORDS SUMMARY | 2024-10-28 09:52 | XMS_ITS | Patient Health Record ---
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 Name Role Phone Todd Alvarado Primary Care Provider Sera Allen Unavailable [phone] Allergies Allergen (clinical drug ingredient) Drug/Non Drug [...] 1.38 Performing Lab: Notes/Report: Test performed by [email or web address] , [address], [place] [address] Jez Martines MD, Academic Advisor CLIA: [id number] Sodium 142 135-145 mmol/L Potassium 4.9 3.5-5.3 [...] 29 Performing Lab: Notes/Report: Test performed by [facility], [address] , [address], [place] [address] Jez Martines MD, Academic Advisor CLIA: [id number] Cholesterol 146 <200 mg/dL Triglycerides 378 <150 [...] Interpretation:normal Performing Lab: Notes/Report: Test performed by [facility] [address] [place] [address] [place] [address] Jez Martines MD, Academic Advisor CLIA: [id number] PSA 0.98 <4.00 ng/mL Please note this is an ultrasensitive PSA assay with a lower limit of detection of 0.014 ng/mL. This test is performed by the [employer] ECLIA methodology. Values obtained with different assay methods or kits cannot be directly compared. P-TSH reflex to FT4 Reviewed date:03/28/2024 02:02:50 PM Interpretation:normal Performing Lab: Notes/Report: Test performed by [facility] [address] [place] [address] [place] [address] Jez Martines MD, Academic Advisor CLIA: [id number] TSH reflex to FT4 4.35 0.43-5.25 mU/L [...] employed in healthcare? No Is patient an [facility] employee? N Is patient currently hospitalized? [...] Interpretation:Normal Performing Lab: Notes/Report: Test performed by [facility] [address] [place] [address] , [address], [place] [address] Jez Martines MD, Academic Advisor CLIA: [id number] Sodium 143 135-145 mmol/L Potassium 4.3 3.5-5.3 [...] 26 Performing Lab: Notes/Report: Test performed by [facility] [address] [place] [address] , [address], [place] [address] Jez Martines MD, Academic Advisor CLIA: [id number] Cholesterol 94 <200 mg/dL Triglycerides 204 <150 [...] Interpretation:Normal Performing Lab: Notes/Report: Test performed by [facility] [address] , [address], [place] [address] Jez Martines MD, Academic Advisor CLIA: [id number] TSH reflex to FT4 1.62 0.43-5.25 mU/L P-Microalbumin/Creatinine, R andom Urine Sample Reviewed date:08/30/2024 12:58:29 PM Interpretation:Normal Performing Lab: Notes/Report: Test performed by [facility], [address] , [address], [place] [address] Jez Martines MD, Academic Advisor CLIA: [id number] Albumin/Creatinine Ratio, Urine 4 0-30 ug/mg Microalbumin, Urine, Random 0.9 Creatinine, Urine 251.0 proBrain Natriuretic Peptide Reviewed date:08/30/2024 12:58:29 PM Interpretation:Normal Performing Lab: Notes/Report: Test performed by [facility] [address] , [address], [place] [id number] Jez Martines MD, Academic Advisor CLIA: [id number] proB[facility] Natriuretic Peptide 43 <300 pg/mL Please [...] 10 MG as directed Orally Active Pen [place] 32G X 4 MM as directed 09/09/2022 [...] Onc e a day Not-Taking Droplet Pen [place] 32G X 4 MM USE DIRECTED; Duration: [...] Status W/U Status Risk Notes Problem Hyperglycemia (05299892) Hyperglycemia (R73.9) Active confirmed Problem Essential hypertension (60812155) Essential hypertension (I10) Active confirmed Problem Onychogryposis (98023361) Onychogryposis (L60.2) Active confirmed Problem Morbid obesity (disorder) (622639624) Morbid (severe) obesity due to excess calories (E66.01) Active confirmed Problem Type 2 diabetes mellitus with other specified complication (E11.69) Active confirmed Problem Mixed hyperlipidemia (512560669) Mixed hyperlipidemia (E78.2) Active confirmed Problem Hypertensive heart failure (75820382) Hypertensive heart disease with heart failure (I11.0) Active confirmed Problem Simple chronic bronchitis (81912672) Simple chronic bronchitis (J41.0) Active confirmed Problem Chronic respiratory failure (33902662) Chronic respiratory failure, unspecified whether with hypoxia or hypercapnia (J96.10) Active confirmed Problem Onychomycosis (055948919) Onychomycosis (B35.1) Active confirmed Problem Arteriosclerotic vascular disease (44313055) Arteriosclerotic cardiovascular disease (I25.10) Active confirmed Problem Congestive heart failure (23646322) Congestive heart failure, unspecified (I50.9) Active confirmed Problem Long-term current use of insulin (404648256) intermediate designer (current) use of insulin (Z79.4) Active confirmed Problem COPD - Chronic obstructive pulmonary disease (76388996) Chronic obstructive pulmonary disease, unspecified COPD type (J44.9) Active confirmed Problem Obese class II (430520813630309) BMI 37.0-37.9, adult (Z68.37) Active confirmed Problem Pneumonia (971614642) Pneumonia of both lower lobes due to infectious organism (J18.9) Active confirmed Problem Hyperglycemia due to type 2 diabetes mellitus (111852663125615) Type 2 diabetes mellitus with hyperglycemia, without long-term current use of insulin (E11.65) Active confirmed Problem Stasis dermatitis (disorder) (49738445) Stasis dermatitis of both legs (I87.2) Active confirmed Problem Obese class II (167726855361875) Adult BMI 35.0-35.9 kg/sq m (Z68.35) Active confirmed Problem Hyperglycemia due to type 2 diabetes mellitus (522337608133706) Type 2 diabetes mellitus with hyperglycemia, unspecified whether continuous churn buttermaker insulin use (E11.65) Active confirmed Problem Plain X-ray of chest abnormal (finding) (0815156537) Abnormal chest x-ray (R93.89) Active confirmed Problem Diastolic dysfunction (4364819) Diastolic dysfunction (I51.89) Active confirmed Problem Gastroesophageal reflux disease (983871975) Gastroesophageal reflux disease, unspecified whether esophagitis present (K21.9) Active confirmed Problem Stasis dermatitis of lower limb due to chronic peripheral venous hypertension (disorder) (597118714) Stasis dermatitis of lower extremity due to chronic peripheral vascular hypertension (I87.329) Active confirmed Vital Signs Heart Rate 87 /min 08/28/2024 Blood pressure diastolic 90 mm Hg 08/28/2024 Height 70 in 08/28/2024 Blood pressure systolic 150 mm Hg 08/28/2024 Weight 262.6 lbs 08/28/2024 BMI 37.68 kg/m2 08/28/2024 Encounters Encounter Location Date Provider Diagnosis [place] [address] [facility] [address] [place] [id number] 03/27/2024 Sera Allen Essential hypertensi on I10 ; Arteriosclerotic cardiovascular disease I25.10 ; Type 2 diabetes mellitus with other specified complication E11.69 ; Mixed hyperlipidemia E78.2 ; Screening PSA (prostate specific antigen) Z12.5 and Encounter for screening colonoscopy Z12.11 [facility] [address] [facility] [address] [place] [id number] 04/18/2024 Sera Allen Acute URI J06.9 and [facility]chitis J[facility] [address] [place], [place] [id number] 08/28/2024 Sera Allen Intermittent diarrhe a R19.7 [...] obstructive pulmonary disease, unspecified COPD type J44.9 [facility] [address] [facility] [address] [place] [id number] 03/28/2024 Sera Crow[facility]imi [facility] [address] [facility] [address] [place], [place] [id number] 04/18/2024 Sera Allen [facility] [address] [facility] [address] [place] [id number] 05/08/2024 Todd Wren Gastroesophageal ref lux disease, unspecified whether esophagitis present K21.9 [facility] [address] [facility] [address] [place], [place] [id number] 07/26/2024 Todd Jenny Lower extremity clifford a R60.0 [facility] [address] [facility] [address] [place] [id number] 08/09/2024 Todd Alvarado [facility] [address] [place] [id number] 08/30/2024 Sera Allen Assessments Encounter Date Diagnosis [...] 2024 Next Appt Details Provider Name:Sera menezes, 02/28/2025 09:00:00 AM, [address], [address], [place], [place], [id number], Insurance Providers Payer Name Payer Address Payer Phone Subscriber Number Group Number Insured Name Patient Relationship to Insured Coverage Start Date Coverage End Date [employer] [address] [place] [address] [id number] Milton Kohler Self - patient is the insured [employer] [address] [place] [address] [id number] Milton Kohler Self - patient is the insured Medical (General) History Medical History History ICD Code COPD enlarged heart HBP Depression, bipolar Arthritis T2DM Surgical History Surgery Date(Month/Year) Bilateral Knee 07/2006 Nerve Stimulator Knee x6 Back Hospitalization History Reason Date(Month/Year)
[2024-10-28 10:13] LABS: Bilirubin,Urine Negative (Negative); Color,Urine YELLOW (Yellow); Glucose,Urine (UA) Negative (Negative); Ketones,Urine Negative (Negative); Leukocyte Esterase,Urine Negative (Negative); PH,Urine 6.0 (5.0-8.5); Protein,Urine Negative (Negative); Specific Gravity, Urine 1.020 (1.005-1.030); Urobilinogen,Urine 0.2 EU/dl (0.2)
[2024-10-28 10:19] LABS: Hematocrit 46.1 % (42.0-52.0); Hemoglobin 14.8 g/dL (14.1-18.0); Immature Granulocytes % 0.3 %; Mean Corpuscular HGB Conc 32.1 g/dL (31.8-35.4); Mean Corpuscular Hemoglobin 28.8 pg (27.0-31.2); Mean Corpuscular Volume 89.7 fl (80-94); Nucleated Red Blood Cells % 0 %; Platelet Count 132 K/mm3 (142-424); Red Blood Count 5.14 M/mm3 (4.60-6.20); Red Cell Distribution Width-SD 50.1 fL; White Blood Count 7.2 K/mm3 (4.8-10.8)
[2024-10-28 10:45] LABS: Bacteria,Urine Trace /lpf; WBC,Urine Occasional #/hpf (0-3)
[2024-10-28 11:00] LABS: Albumin Level 4.2 g/dl (3.5-5.0); Anion Gap 10.2 mEq/L (5-15); Blood Urea Nitrogen 14 mg/dl (9-20); Calcium 9.7 mg/dl (8.4-10.2); Carbon Dioxide 26 mmol/L (22.0-30.0); Chloride 105 mmol/L (98-107); Creatinine,Serum 1.30 mg/dl (0.66-1.25); Estimated Glomerular Filt Rate 57 ml/min (>60); GFR (African American) 69 ML/MIN (>60); Glucose 121 mg/dl (74-100); Phosphorous 4.2 mg/dl (2.5-4.5); Potassium 4.2 mmoL/L (3.5-5.1); Sodium 137 mmol/L (136-145)
[2024-10-28 11:16] LABS: 25-OH Vitamin D, Total 27.4 ng/mL (30-100)
== END 2024-10-28 23:59 | disposition home or self-care (01) ==
LOC: LAB 09:46
PROVIDERS: PCP Physician Assistant; Visit Provider Student in an Organized Health Care Education/Training Program
DX: N18.30 Chronic kidney disease, stage 3 unspecified (principal)
CPT/HCPCS: 36415; 80069; 81001; 82306; 82570; 83970; 84156; 85025

== ENCOUNTER 2024-11-07 09:22 | Emergency (ER) | payer MEDICARE, SELFPAY ==
--- OUTSIDE RECORDS SUMMARY | 2017-08-03 04:50 | XMS_ITS | Continuity of Care Document ---
Author Organization [facility]ice Address [address] [address] Phone Care Team Providers Care Cottage Supervisor Name Role Phone Ronald NANCE Sal ROSADO Unavailable Unavailable Allergies, Adverse Reactions, Alerts Substance Reaction Status Criticality HYDROCODONE BITARTRATE Active No In formation acetaminophen Active No Information Medications Medication Instructions Dosage Effective Dates (start - stop) Status Comments metoprolol tartrate 25 mg tablet take 1 tablet by oral route 2 times every day 25 MG - Active dose increase aspirin 81 mg tablet,delayed release take 1 tablet by oral route every day 81 MG - Active losartan 100 mg tablet [...] times a week Not Available - Active lamotrigine 200 mg tablet take 1 tablet by oral route 2 times every day 200 MG - Active potassium chloride ER 10 mEq tablet,extended release take 1 tablet by oral route every day with food 10 MEQ - Active metoprolol tartrate 25 mg tablet [...] Copied on Encounter Office/outpa tient visit,anthony, jaison [facility], [address] [place] [address], [id number], tel:[phone] [facility] Dyspnea (chief complaint)Ed dean [...] unspecified heart failure type 8 Ronald Huang. [address] [place] [address], [id number], . tel:[phone] Referring Provider: Sal Cardenas, [address] [place] [address], [id number]. tel:[phone] Family History Family Member Type Diagnosis Age At Onset Mother Problem (finding) coronary arterioscleros is Payers Payer name Insurance type Covered green party ID Authorwadea carolineabhi(s) Lonnie KRISTIAN [id number] Social History Type Description Quantity Date Captured [...]
--- OUTSIDE RECORDS SUMMARY | 2024-03-27 05:45 | XMS_ITS ---
Author Organization [facility] Address [address] [place] [id number] Care Team Providers Care Factory Maintenance Manager Name Role Phone Todd Alvarado Primary Care Provider [phone] Sera Allen Unavailable [phone] Allergies Allergen (clinical drug ingredient) Drug/Non Drug [...] 1.38 Performing Lab: Notes/Report: Test performed by [facility]0 [facility] , [address], [place] [address] Jez Martines MD, Legal Biller CLIA: [id number] Sodium 142 135-145 mmol/L Potassium 4.9 3.5-5.3 [...] 29 Performing Lab: Notes/Report: Test performed by [facility], [employer] [address] [place] [address] , [address], [place] [address] Jez Martines MD, Legal Biller CLIA: [id number] Cholesterol 146 <200 mg/dL Triglycerides 378 <150 [...] Interpretation:normal Performing Lab: Notes/Report: Test performed by [facility] [address] [place] [address] [place] [address] Jez Martines MD, Legal Biller CLIA: [id number] PSA 0.98 <4.00 ng/mL Please note this is an ultrasensitive PSA assay with a lower limit of detection of 0.014 ng/mL. This test is performed by the Ferm[place] ECLIA methodology. Values obtained with different assay methods or kits cannot be directly compared. P-TSH reflex to FT4 Reviewed date:03/28/2024 02:02:50 PM Interpretation:normal Performing Lab: Notes/Report: Test performed by [facility] [address] [place] [address] [place] [address] Jez Martines MD, Legal Biller CLIA: [id number] TSH reflex to FT4 4.35 0.43-5.25 mU/L REASON FOR VISIT check up, Needs labs with PSA, colonoscopy due to positive cologuard, diabetic eye exam, & flu vaccine Medications Medication SIG (Take, Route, Frequency, Duration) Notes Start Date End Date Status Ariadna Aerosphere 160-9-4.8 MCG/ACT 2 puffs Inhalation Twice a day Active Droplet Pen [place] 32G X 4 MM USE DIRECTED; Duration: 90 Active Furosemide 40 MG 1/2 tab orally once a day Active Farxiga 10 MG 1 tab(s) orally once a day; Duration: 30 day(s) 07/05/2021 Active Omeprazole 40 MG 1 cap(s) Orally once daily; Duration: 90 days Active Albuterol Sulfate HFA 108 (90 Base) MCG/ACT 2 puff(s) inhaled every 6 hours Active Pen [place] 32G X 4 MM as directed 09/09/2022 [...] Encounter Location Date Provider Diagnosis [facility] [address] [facility] 36 [facility] [address] [place] [id number] 03/27/2024 Sera Allen Essential hypertensi on I10 [...] 02/28/2025 09:00:00 AM, [address] [facility], [address], [place], [id number], Progress Notes * Leigh SANDOVALOB:[birth year] (58 yo M)Acc No.[id number]:03/27/2024 Progress Notes Patient: Milton ATKINS Provider: MARIANNA Starr :1965 A ge:58 Y S ex:Male Date:03/27/2024 Address:[place], [id number] Pcp:Todd Alvarado Subjective: * Chief Complaints: * [...] orally once a day , Taking Pen [place] 32G X 4 MM Miscellaneous as directed , Taking Metoprolol Succinate ER 50 MG Tablet Extended Release 24 Hour 1/2 tab orally once a day , Taking Farxiga 10 MG Tablet 1 tab(s) orally once a day , Taking Omeprazole 40 MG Capsule Delayed Release 1 cap(s) Orally once daily , Taking Droplet Pen [place] 32G X 4 MM Miscellaneous USE DIRECTED [...] G 2211 Complex e/[place], [address] CAPILLARY BLOOD DRAW, 54658 GLYCATED HEMOGLOBIN TEST, Modifiers: QW , 30011 CBC WITH AUTO DIFF, 34644 VENIPUNCT, ROUTINE* * Follow Up: v ia phone to report test results * Images: Billing Information: * Visit Code: 36294 Office Visit, Est Pt., Level 4. * Procedure Codes: G2211 Complex e/[place]. [address] CAPILLARY BLOOD DRAW. 17533 GLYCATED HEMOGLOBIN TEST. Modifiers: QW 81521 CBC WITH AUTO DIFF. 21917 VENIPUNCT, ROUTINE*. * Electronic signature of MARIANNA Benito on 11/07/2024 at 09:40 AM EDT Sign off status: Pending * Provider: MARIANNA Starr Date: 0 03/27/2024 Generated for Miguel love/Rodney/eTransmitting on: 0 11/07/2024 09:40 AM EDT History and Physical Notes * [...]
--- OUTSIDE RECORDS SUMMARY | 2024-04-18 07:00 | XMS_ITS ---
Author Organization [facility] Address [address] [place] [id number] Care Team Providers Care Shoe Caser Name Role Phone Todd Alvarado Primary Care Provider Sera Allen Unavailable [phone] Allergies Allergen (clinical drug ingredient) Drug/Non Drug Allergy documented on EMR Reaction Allergy Type Onset Date Status acetaminophen / hydrocodone HYDROcodone-Acetamino phen Unknown Drug Allergy Active Results Component Value Reference Range Notes CBC Fingerstick (in house) Reviewed date:04/18/2024 11:40:36 AM Interpretation: Performing Lab: Notes/Report: wbc 6.1 3.5 - 10 lym 19.4 15 - 50 mid 5.2 2 - 15 gran 75.4 35 - 80 rbc 5.38 3.5 - 5.5 hgb 15.2 11.5 - 16.5 hct 47.1 35 - 55 mcv 87.5 75 - 100 mch 28.2 25 - 35 mchc 32.2 31 - 38 plat 98 100 - 400 H-Covid, Flu A, Flu B PCR Reviewed date:04/18/2024 03:11:07 PM Interpretation: Performing Lab: Notes/Report: No Is this the 1st COVID test for the patient? No Does the patient have COVID symptoms? No Is the patient employed in healthcare? No Is patient an [facility] employee? N Is patient currently hospitalized? No Is patient currently in ICU? No Date of Symptom onset Is patient a resident in a congregate care setting? No COVPCR Not Detected NotDetected Effective 11/10/20, Positive covid results will no longer be called to the ordering physician. Infection control and the physician?s office will continue to report positive covid results to the local Health Department as required. This assay is for in vitro diagnostic use under FDA Emergency Use Authorization only. Negative results do not preclude infection with SARS CoV 2 virus and should not be the sole basis of a patient treatment/management or public health decision. Follow up testing should be performed according to the current CDC recommendations. FLUAPCR Detected NotDetected FLUBPCR Not Detected NotDetected Covid test (in house) Reviewed date:04/18/2024 11:40:53 AM Interpretation:neg Performing Lab: Notes/Report: neg Result: neg CXR Reviewed date:04/19/2024 11:52:53 AM Interpretation: Performing Lab: Notes/Report: REASON FOR VISIT poss pneumonia Medications Medication SIG (Take, Route, Frequency, Duration) Notes Start Date End Date Status metFORMIN HCl 500 MG 2 tab(s) orally 2 t imes a day; Duration: 90 days Active Accu-Chek Guide Test - TEST BLOOD SUGAR TWO TIMES DAILY DIRECTED; Duration: 90 Active Accu-Chek Guide - USE DIRECTED TO T EST TWO TIMES DAILY; Duration: 90 Active Klor-Con 10 10 MEQ TAKE 1 TABLET EVERY DAY; Duration: 90 Active Glimepiride 4 MG 1 tab(s) orally once a day; Duration: 90 days Active Tresiba FlexTouch 200 UNIT/ML 10 units subcutaneously once a day Active Omeprazole 40 MG 1 cap(s) Orally once daily; Duration: 90 days Active Droplet Pen [place] 32G X 4 MM USE DIRECTED; Duration: 90 Active Furosemide 40 MG 1/2 tab orally once a day Active Breztri Aerosphere 160-9-4.8 MCG/ACT 2 puffs Inhalation Twice a day Active Pen [place] 32G X 4 MM as directed 09/09/2022 Active Metoprolol Succinate ER 50 MG 1/2 tab orally once a day Ac tive Farxiga 10 MG 1 tab(s) orally once a day; Duration: 30 day(s) 07/05/2021 Active Aspirin 81 MG 1 tab(s) orally once a day; Duration: 30 day(s) Active Losartan Potassium 100 MG 1/2 orally once a day Active Venlafaxine HCl ER 37.5 MG 1 cap(s) oral ly once a day; Duration: 30 day(s) Active Albuterol Sulfate HFA 108 (90 Base) MCG/ACT 2 puff(s) inhaled every 6 hours Active lamoTRIgine 200 MG 1 tab(s) orally 2 ti mes a day Active Viibryd 40 MG 1 tab(s) orally q AM Active QUEtiapine Fumarate ER 150 MG 1 tab(s) orally once a day (in the evening); Duration: 30 day(s) Active Gabapentin 600 MG 4 tablet 2 tabs am 2 tabs pm Active Spironolactone 50 MG 1 tablet Orally Once a day Active Rosuvastatin Calcium 20 MG 1 tablet Orally Once a day Active Vital Signs Blood pressure systolic 130 mm Hg 04/18/19 25 Blood pressure diastolic 74 mm Hg 025 Heart Rate 113 /min 04/18/2024 Height 70 in 04/18/2024 Weight 262.4 lbs 04/18/2024 BMI 37.65 kg/m2 04/18/2024 Encounters Encounter Location Date Provider Diagnosis [facility] [address] [place] [id number] 04/18/2024 Sera Allen Acute URI J06.9 and Bronchitis J40 Assessments Encounter Date Diagnosis (ICD Code) Assessment Notes Treatment Notes Treatment Clinical Notes Section Notes 04/18/2024 Acute URI (ICD-10 - J06.9) Patient has cough medication at home. 04/18/2024 Bronchitis (ICD-10 - J40) Pt has a nebulizer at home and will start doing treatments 4 times a day. Plan Of Treatment Treatment Notes Assessment Notes Acute URI Patient has cough me dication at home. Bronchitis Pt has a nebulizer a t home and will start doing treatments 4 times a day. Next Appt Details Follow Up: via phone to repo rt test results, Reason: Provider Name:Sera Wall y, 02/28/2025 09:00:00 AM, [address], [address], [place], [phone], Progress Notes * Leigh BASSETTOB:[birth year] (58 yo M)Acc No.[id number]:04/18/2024 Progress Notes Patient: Tiffani Milton ASHTON Provider: MARIANNA Starr :1965 A ge:58 Y S ex:Male Date:04/18/2024 Address:[address] [place], [id number] Pcp:Todd Alvarado Subjective: * Chief Complaints: * 1 . Poss pneumonia. * HPI: E NT/respiratory: 58 year old male presents with c/o cough. c/o nasal congestion. c/o Short of Breath. c/o headache. c/o chest congestion. c/o body aches. Pt sts he believes he may have pneumonia. Pt sts his symptoms started 2 days ago. * ROS: D ERMATOLOGY: no R eugenia. [...] orally once a day , Taking Pen [place] 32G X 4 MM Miscellaneous as directed , Taking Metoprolol Succinate ER 50 MG Tablet Extended Release 24 Hour 1/2 tab orally once a day , Taking Farxiga 10 MG Tablet 1 tab(s) orally once a day , Taking Omeprazole 40 MG Capsule Delayed Release 1 cap(s) Orally once daily , Taking Droplet Pen [place] 32G X 4 MM Miscellaneous USE DIRECTED [...] BLOOD SUGAR TWO TIMES DAILY DIRECTED , Medication List reviewed and reconciled with the patient * Allergies: H YDROcodone-Acetaminophen. Objective: * Vitals: W t:262.4, Temp:98.1, BP:130/74, HR:113, O2 Sat:96% on RA, Nurse:DAVID, Ht: 70, BMI:37.65. * Examination: E NT/Respiratory: General Appearance: N AD. E ars: a uditory canals normal bilaterally, TM's WNL. N ose : turbinates red, congested. S inuses : tender maxillary sinuses bilaterally. O ral cavity : erythema without exudate on pharynx, PND present. N jennifer : n o cervical lymphadenopathy. H eart : R RR, normal S1 S2, no murmurs. L ungs: expiratory wheezes, no rales. Assessment: * Assessment: 1. A ranjana CARLOSI - J06.9 (Primary) 2 . B beba - J40 Plan: * Treatment: Value Reference Range C OVPCR Not Detected NotDetected - * F LUAPCR Detected Aa NotDetected - * F LUBPCR Not Detected NotDetected - * Sera Allen 04/18/2024 3: 11:03 PM > see TE ?LAB: CBC Fingerstick (in house) (Collection Date & Time - 04/18/2024)* Value Reference Range w bc 6.1 3.5 - 10 * l ym 19.4 15 - 50 * m id 5.2 2 - 15 * g ran 75.4 35 - 80 * r bc 5.38 3.5 - 5.5 * h gb 15.2 11.5 - 16.5 * h ct 47.1 35 - 55 * m cv 87.5 75 - 100 * m ch 28.2 25 - 35 * m chc 32.2 31 - 38 * p lat 98 100 - 400 * Gloria Ballard 04/18/2024 10:48 :21 AM > , Provider reviewed results while patient in office.Sera Allen 04/18/2024 11:40:33 AM > Notes: Patient has cough medication at home.??2.?Bronchitis?LAB: Covid test (in house) (Collection Date & Time - 04/18/2024)?neg* Value Reference Range R esult: neg * NellieGloria 04/18/2024 11:08 :48 AM > , Provider reviewed results while patient in office.Sera Allen 04/18/2024 11:40:51 AM > ?Imaging: CXR (Performed Date - 04/18/2024)* Sera Allen 04/19/2024 10 :05:27 AM > Please let patient know his CXR showed no pneumoniaNoAmara kilpatrick 04/19/2024 11:52:43 AM > Pt informed Notes: Pt has a nebulizer at home and will start doing treatments 4 times a day.?? * Procedure Codes: 9 [address] [place], [address] CAPILLARY BLOOD DRAW, 97886 CBC WITH AUTO DIFF, 47821 COVID TEST IN HOUSE, Modifiers: QW * Follow Up: v ia phone to report test results * Images: Billing Information: * Visit Code: 92977 Office Visit, Est Pt., Level 3. * Procedure Codes: [address] [place]. [address] CAPILLARY BLOOD DRAW. 56403 CBC WITH AUTO DIFF. 20737 COVID TEST IN HOUSE. Modifiers: QW * Electronic signature of MARIANNA Benito on 11/07/2024 at 09:40 AM EDT Sign off status: Pending * Provider: MARIANNA Starr Date: 0 04/18/2024 Generated for Miguel love/Rodney/eTransmitting on: 0 11/07/2024 09:40 AM EDT History and Physical Notes * HPI (History of Present Illness) Category Sub-Category Detail Notes Category Not es ENT/respiratory Short of Breath Pt sts he believes he may have pneumonia. Pt sts his symptoms started 2 days ago cough headache chest congestion nasal congestion body aches Examination Category Sub-Category Detail Notes Category Not es ENT/Respiratory Oral cavity : erythema without exudate on pharynx, PND present Sinuses : tender maxillary sin uses bilaterally Ears: auditory canals norm al bilaterally, TM's WNL Neck : no cervical lymphade nopathy Heart : RRR, normal S1 S2, n o murmurs Lungs: expiratory wheezes, no rales General Appearance: NAD Nose : turbinates red, lashay ested
--- OUTSIDE RECORDS SUMMARY | 2024-08-28 11:45 | XMS_ITS ---
Author Organization [facility] Address [address] [place] [id number] Care Team Providers Care Prefabricator Name Role Phone Todd Alvarado Primary Care Provider Sera Allen Unavailable [phone] Allergies Allergen (clinical drug ingredient) Drug/Non Drug [...] Interpretation:Normal Performing Lab: Notes/Report: Test performed by [facility] [address] [facility] , [address], [place] [address] Jez Martines MD, Liability Claims Manager CLIA: [id number] Sodium 143 135-145 mmol/L Potassium 4.3 3.5-5.3 [...] 26 Performing Lab: Notes/Report: Test performed by [facility], [address] , [address], [place] [address] Jez Martines MD, Liability Claims Manager CLIA: [id number] Cholesterol 94 <200 mg/dL Triglycerides 204 <150 [...] Interpretation:Normal Performing Lab: Notes/Report: Test performed by [facility] [address] [place], [place] [address] [place] , [place] [address] Jez Martines MD, Liability Claims Manager CLIA: [id number] TSH reflex to FT4 1.62 0.43-5.25 mU/L P-Microalbumin/Creatinine, R andom Urine Sample Reviewed date:08/30/2024 12:58:29 PM Interpretation:Normal Performing Lab: Notes/Report: Test performed by [facility] [address] [place] [address] , [place] [address] Jez Martines MD, Liability Claims Manager CLIA: [id number] Albumin/Creatinine Ratio, Urine 4 0-30 ug/m g Microalbumin, Urine, Random 0.9 Creatinine, Urine 251.0 proBrain Natriuretic Peptide Reviewed date:08/30/2024 12:58:29 PM Interpretation:Normal Performing Lab: Notes/Report: Test performed by [facility], [address] , [address], [place] [address] Jez Martines MD, Liability Claims Manager CLIA: [id number] proBrain Natriuretic Peptide 43 <300 pg/mL Please [...] DAILY DIRECTED; Duration: 90 Active Droplet Pen [place] 32G X 4 MM USE DIRECTED; Duration: [...] 1/2 orally once a day Active Pen [place] 32G X 4 MM as directed 09/09/2022 [...] Status Risk Notes Problem Obese class II (478073703854650 ) BMI 37.0-37.9, adult (Z68.37) Active confirmed Problem Morbid obesity (disorder) (223585540) Morbid (severe) obesity due to excess calories (E66.01) Active confirmed Problem Chronic respiratory failure (27022253) Chronic respiratory failure, unspecified whether with hypoxia or hypercapnia (J96.10) Active confirmed Problem Hypertensive heart failure (63505989) Hypertensive heart disease with heart failure (I11.0) Active confirmed Problem Congestive heart failure (62381691) Congestive heart failure, unspecified (I50.9) Active confirmed Problem COPD - Chronic obstructive pulmonary disease (09429023) Chronic obstructive pulmonary disease, unspecified COPD type (J44.9) Active confirmed Vital Signs Blood pressure systolic 150 mm Hg 08/29/19 25 Blood pressure diastolic 90 mm Hg 025 Heart Rate 87 /min 08/28/2024 Height 70 in 08/28/2024 Weight 262.6 lbs 08/28/2024 BMI 37.68 kg/m2 08/28/2024 Encounters Encounter Location Date Provider Diagnosis [facility] [address] [place] [id number] 08/28/2024 Sera Allen Intermittent diarrhe a R19.7 [...] rt test results, Reason: Provider Name:Sera menezes, 02/28/2025 09:00:00 AM, [address], [address], [place], [id number], Progress Notes * Leigh BASSETTOB:[birth year] (58 yo M)Acc No.[id number]:08/28/2024 Progress Notes Patient: Milton ATKINS Provider: MARIANNA Starr :1965 A ge:58 Y S ex:Male Date:08/28/2024 Address:[place], [id number] Pcp:Todd Alvarado Subjective: * Chief Complaints: * [...] orally once a day , Taking Pen [place] 32G X 4 MM Miscellaneous as directed , Taking Metoprolol Succinate ER 50 MG Tablet Extended Release 24 Hour 1/2 tab orally once a day , Taking Droplet Pen [place] 32G X 4 MM Miscellaneous USE DIRECTED [...] 08/28/2024 0 4:11:16 PM EDT >room B, [facility] 4.?Essential hypertension?LAB: P-Comprehensive Metabolic Panel (CMP) (Collection [...] Natriuretic Peptide 43 <300 - pg/mL * [facility], IT support 08/30/2024 05:30:08 : This order was created by the Interface. Yvonne Lira 08/30/2024 12:58:17 PM EDT > See phone encounter * Procedure Codes: G 2211 Complex e/[place], [address] CBC WITH AUTO DIFF, 89996 GLYCATED HEMOGLOBIN TEST, Modifiers: QW , G8950 PREHTN/HTN BP DOC INDCD F/U DOC, G8752 MOST RECENT SYSTOLIC BP < 140MM HG, G8754 MOST RECENT DIASTOLIC BP < 90MM HG, 3044F HG A1C LEVEL LT 7.0% * Follow Up: v ia phone to report test results * Images: Billing Information: * Visit Code: 55323 Office Visit, Est Pt., Level 4. * Procedure Codes: G2211 Complex e/[place]. [address] CBC WITH AUTO DIFF. 82384 GLYCATED HEMOGLOBIN TEST. Modifiers: QW G8950 PREHTN/HTN BP DOC INDCD F/U DOC. G8752 MOST RECENT SYSTOLIC BP < 140MM HG. G8754 MOST RECENT DIASTOLIC BP < 90MM HG. 3044F HG A1C LEVEL LT 7.0%. * Electronic signature of MARIANNA Benito on 11/07/2024 at 09:41 AM EDT Sign off status: Pending * Provider: MARIANNA Starr Date: 0 08/28/2024 Generated for Jose Mariai ng/Farossg/eTransmitting on: 0 11/07/2024 09:41 AM EDT History and Physical Notes * [...]
--- OUTSIDE RECORDS SUMMARY | 2024-11-01 12:20 | XMS_ITS | Encounter Summary ---
Author Organization [facility] Address [address] [place] [id number] Care Team Providers Care Lidder Name Role Phone Maged Sharma MD Primary Care Provider Reason for Visit * Reason Comments Consult Pt is a 58 year old male that presents to the clinic on this date for a new patient consult. Pt denies any complaints or concerns at the current moment. Pt denies any pain at the current moment. * Consultation (Routine) - Closed Specialty Diagnoses / Procedures Referred By Contac t Referred To Contact Nephrology Diagnoses Stage 3 chronic kidney disease, unspecified whether stage 3a or 3b CKD (CMS/HCC) Guillaume Reeves MD [address] [place] [phone] Phone: tel: fax: Referral ID Status Reason Start Date Expiration Date V isits Requested Visits Authorized [id number] Closed Specialty Services Required 05/23/2024 11/22/2025 1 1 Encounter Details Date Type Department Care Team (Late st Contact Info) Description 11/01/2024 12:20 PM EDT Office Visit [facility] [address] [place] [phone] Guillaume Reeves MD [address] [place] [phone] Severe obesity (BMI 35.0-39.9) with comorbidity (CMS/HCC) (Primary Dx); Coronary artery disease involving [place]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[place] heart without angina pectoris; Type 2 diabetes mellitus with chronic kidney disease, without long-term current use of insulin, unspecified CKD stage ([facility]); CKD stage 3a, GFR 45-59 ml/min ([facility]); Hypertensive chronic kidney disease with stage 1 through stage 4 chronic kidney disease, or unspecified chronic kidney disease; Chronic kidney disease-mineral and bone disorder (CKD-MBD) Social History Tobacco Use Types Packs/Day Years Used Date Smoking Tobacco: Every Day Cigarettes 1 40 Started: 11/01/1984 Smokeless Tobacco: Never Tobacco Cessation:Ready to Q uit: Not Asked; Counseling Given: Not Answered Alcohol Use Standard Drinks/Week Comments No 0 (1 standard drink = 0.6 oz pur e alcohol) AUDIT-C Answer Date Recorded Q1: How often do you have a drink containing alc ohol? Never 11/01/2024 Average Number of Drinks Not on file 025 Q3: How often do you have si x or more drinks on one occasion? Never 11/01/2024 Sex and Gender Information Value Date Recorded Sex Assigned at Not on file Legal Sex Male 6:51 PM EDT Gender Identity Not on file Sexual Orientation Not on file documented as of this encounter Last Filed Vital Signs Vital Sign Reading Time Taken Comments Blood Pressure 124/80 11/01/2024 12:17 PM EDT Pulse 99 11/01/2024 12:17 PM EDT Temperature - - Respiratory Rate 18 11/01/2024 12:17 PM EDT Oxygen Saturation 94% 11/01/2024 12:17 PM EDT Inhaled Oxygen Concentration - - Weight 117 kg (258 lb) 11/01/2024 12:17 PM EDT Height 177.8 cm (5' 10 ) 11/01/2024 12:17 PM EDT Body Mass Index 37.02 11/01/2024 12:17 PM EDT documented in this encounter Functional Status documented as of this encounter Miscellaneous Notes * Progress Notes - Guillaume Reeves MD - 11/01/2024 12:20 PM EDT Nephrology Outpatient Clinic New Consult Note Chronic Kidney Disease Patient: Milton Bassett Primary Care Provider: Maged Sharma MD Referring Provider: Maged Sharma MD Reason for consult: Elevated serum creatinine and CKD HPI/Subjective Milton Bassett is a 58 y.o. male with a PMH of HTN, Coronary artery disease s/p JOE, DM2, who presents for evaluation of elevated creatinine and CKD stage 3a. He has no history of prior kidney disease. No significant family history. No NSAIDs. He has CAD and had stents placed he is now on Prasurgrel and ASA 81 mg. Follows with Cardiology recently had cardiac MRI that reportedly was good. He takes 20 mg lasix daily. He is on metoprolol 25 mg and losartan 100 mg. He is not on Farxiga or Jardiance citing cost as major concern. No major issues with swelling. No urinary symptoms. Social history significant for smoking ROS Review of Systems Constitutional: Negative. HENT: Negative. Eyes: Negative. Respiratory: Negative. Cardiovascular: Negative. Gastrointestinal: Negative. Endocrine: Negative. Genitourinary: Negative. Musculoskeletal: Negative. Skin: Negative. Allergic/Immunologic: Negative. Neurological: Negative. Hematological: Negative. Psychiatric/Behavioral: Negative. History: Past Medical History[1] Problem List[2] Surgical History[3] Family History[4] Social History Socioeconomic History Marital status: Spouse name: Not on file Number of children: Not on file Years of education: Not on file Highest education level: Not on file Occupational History Not on file Tobacco Use Smoking status: Every Day Current packs/day: 1.00 Average packs/day: 1 pack/day for 40.0 years (40.0 ttl pk-yrs) Types: Cigarettes Start date: 11/01/1984 Smokeless tobacco: Never Vaping Use Vaping status: Never Used Substance and Sexual Activity Alcohol use: No Drug use: No Comment: Drug use: No illicit drug use Sexual activity: Not on file Other Topics Concern Not on file Social History Narrative from significant other Social Drivers of Health Financial Resource Strain: Not on file Food Insecurity: Not on file Transportation Needs: Not on file Physical Activity: Not on file Stress: Not on file Social Connections: Not on file Intimate Partner Violence: Not on file Housing Stability: Not on file Allergies[5] Medications: Current Medications: Current Outpatient Medications Medication Instructions albuterol 108 (90 Base) MCG/ACT inhaler 2 puffs, 4 times daily aspirin 81 mg, Daily furosemide (LASIX) 20 mg gabapentin (NEURONTIN) 800 mg, 3 times daily glimepiride (AMARYL) 4 mg, Daily before breakfast ipratropium-albuterol (Duo-Neb) 0.5-2.5 mg/3 mL nebulizer solution 3 mL, Every 6 hours PRN lamoTRIgine (LAMICTAL) 400 mg, Daily losartan (COZAAR) 100 mg, Daily metFORMIN (GLUCOPHAGE) 1,000 mg, 2 times daily with meals methocarbamol (ROBAXIN) 750 mg, 4 times daily metoprolol tartrate (Lopressor) 25 MG tablet nitroglycerin (NITROSTAT) 0.4 mg, Every 5 min PRN omeprazole (PRILOSEC) 40 mg, Daily potassium chloride CR 10 MEQ PO ER tablet prasugrel (EFFIENT) 10 mg, Daily QUETIAPINE FUMARATE ER PO 450 mg, Daily rosuvastatin (CRESTOR) 20 mg, Nightly tiotropium-olodaterol (Stiolto Respimat) 2.5-2.5 MCG/ACT aerosol solution inhaler 2 Inhalations, Daily Tresiba FlexTouch 10 Units, Nightly vilazodone (VIIBRYD) 40 mg, Daily with breakfast Objective Visit Vitals BP 124/80 (BP Location: Right arm, Patient Position: Sitting, BP Cuff Size: Large adult) Pulse 99 Resp 18 Ht 1.778 m (5' 10 ) Wt 117 kg (258 lb) SpO2 94% BMI 37.02 kg/m?? Smoking Status Every Day BSA 2.4 m?? Heart Rate: [99] 99 Resp: [18] 18 BP: (124)/(80) 124/80 Physical Exam: Physical Exam Constitutional: General: He is not in acute distress. Appearance: Normal appearance. He is obese. He is not ill-appearing. HENT: Head: Normocephalic and atraumatic. Right Ear: External ear normal. Left Ear: External ear normal. Nose: Nose normal. Mouth/Throat: Mouth: Mucous membranes are moist. Pharynx: Oropharynx is clear. Eyes: Conjunctiva/sclera: Conjunctivae normal. Pupils: Pupils are equal, round, and reactive to light. Cardiovascular: Rate and Rhythm: Normal rate. Pulses: Normal pulses. Pulmonary: Effort: Pulmonary effort is normal. Abdominal: General: Abdomen is flat. Musculoskeletal: General: Normal range of motion. Cervical back: Normal range of motion. Right lower leg: No edema. Left lower leg: No edema. Skin: General: Skin is warm and dry. Capillary Refill: Capillary refill takes less than 2 seconds. Neurological: General: No focal deficit present. Mental Status: He is alert and oriented to person, place, and time. Mental status is at baseline. Psychiatric: Mood and Affect: Mood normal. Behavior: Behavior normal. Thought Content: Thought content normal. Judgment: Judgment normal. Laboratory: I have personally reviewed these lab results and discuss their significance below. LAB RESULTS Renal Panel: No results found for: NA , K , CL , CO2 , BUN , BUNPRE , BUNPOST , CREATININE , EGFR , CA , GLU , PHOS , ALBUMIN CBC: No results found for: WBC , RBC , HGB , HCT , PLT , MCV , MCH , MCHC , RDW , NRBC Iron studies: No results found for: FERRITIN , IRON , IRONSAT , TIBC Urine studies: No results found for: CAR , CAUR , CALCIUMUR , PHOSUR , [id number] , [id number] , CREATUR MBD: No results found for: PTH , CA , CALCIUM , ICAS , PHOS , MG VITAMIN D 25 No results found for: VITD25 VITAMIN D 1,25 No results found for: VITD32 Paraproteinemia Labs: No results found for: SPEP , KAPPALAMBDA Nutritional: No results found for: PREALBUMIN , VITD25 Endocrine profile: No results found for: TESTOSTERONE , TESTOST , FSH , LH , PROLACTIN , TSH , [id number] , FREET4 , CORTISOL 05/13/24 - Creatinine 2.0 Labs 10/28/24 CBC: WBC 7.2, Hgb 14.8, PLT RFP: Na 137, K 4.2, Cl 105, CO2 26, BUN 14, Cr 1.3, GFR 57, Glu 121, Ca 9.7, P 4.2, Alb 4.2, PTH 38, Vit d 27 UA: neg blood, neg prot, urine creat 107, urine prot 13 Imaging: No suspicious kidney lesions on Ct 2017 Impression & Plan: Milton Bassett is a 58 y.o. male with PMH of HTN, DM2, CAD s/p Stent, who presents on 11/01/24 for evaluation of CKD. In Apr 2024 he had an fiordaliza peak creatinine 2.0 at which time neph referral placed. Cr in October 2024 back down to 1.3. #FIORDALIZA in apr 2024- resolved #CKD Stage 3a #DM2 with CKD, not on insulin Etiology: Diabetic nephropathy, hypertensive nephrosclerosis Baseline serum creatinine: 1.3 Most recent Scr: 1.3 eGFR 57 Electrolytes, acid/base, volume status wnl Urine: no blood, no protein Anatomy: imaging showed no abrnomalities Risk factor reduction to slow progression of kidney disease: -BP Control goal BP <130/80 -DM control goal A1c <7.0% -Lifestyle management: ---Maintain healthy weight: ---Diet recommendations: Heart healthy and Low sodium <2g/day ---Daily exercise 20-30 minutes as tolerated -Avoid NSAIDs -TERELL blockade: Losartan 100 mg -SGLT2 inhibitor: Would likely benefit, but concerned about cost #HTN in CKD -goal BP <130/80 - at goal -metoprolol 25 mg and lsoartan 100 mg #Anemia in CKD -hgb at goal >10 g/dL #CKD Bone and Mineral Disease -PTH goal <100, vit d > 30 -ca and phos wnl #Hyperlipidemia in CKD #CAD s/p JOE -patient on statin Recommendations and plan: -I have reviewed MR. Bassett's referral and recent laboratory studies. He had a significant FIORDALIZA in Apr 2024, but this has resolved creatinine now at 1.3 which I suspect is close to his baseline. Toslow progression of CKD, he needs adequate BP control goal <130/80, DM2 control goal A1c <6.5%. He would likely benfit from an SGLT2 inhibitor such as Farxiga or Jardiance if able to find a less costly way to obtain this class of medication. He may also benefit from GLP1 for weight loss. -No change to medications today -He should AVOID NSAIDs -Low sodium diet <2 g/day goal RTC in 1 year Guillaume Reeves MD Division of Nephrology [facility] Counseling Documentation: The patient was counseled regarding COUNSELING TOPICS: diagnostic results, prognosis, risks and benefit of treatment options, risk factor reductions, instructions for management, patient and family education, medication changes, diagnostic impressions, Heart healthy diet, regular physical activity and weight control, Avoidance of NSAIDs and other nephrotoxins, and ferry terminal agent nature of condition. Education provided was verbal counseling.Additional time was spent in care coordination including medical record review. ENCOUNTER TIMING: I personally spent a total of 45 minutes on this encounter. This time includes face to face with patient, counseling and discussion, lab/result interpretation, coordination of follow-up care, document review. The total time of encounter was 45 minutes and greater than 50% of the visit was spent in c ounseling/coordination of care. . MDM: - was based on the following: Labs reviewed Urine studies: UA, urine lytes and urine creatinine, or spot urine protein and creatinine ratio and Metabolic profile: renal panel or CBC Past imaging reviewed Old chart reviewed ORDERS PLACED THIS ENCOUNTER Orders Placed This Encounter Procedures CBC W/O Differential Standing Status: Future Expected Date: 11/01/2025 Expiration Date: 12/06/20[facility] Urinalysis with reflex microscopic (Culture NOT Included) Standing Status: Future Expected Date: 11/01/2025 Expiration Date: 12/06/2025 [facility] Vitamin D 25 Hydroxy Standing Status: Future Expected Date: 11/01/2025 Expiration Date: 12/06/20[facility] PTH Intact Total Standing Status: Future Expected Date: 11/01/2025 Expiration Date: 12/06/2025 Release to patient in MyChart: Immediate Albumin-creatinine ratio, urine, random Standing Status: Future Expected Date: 11/01/2025 Expiration Date: 12/06/2025 Release to patient in MyChart: Immediate Protein, Random, Urine with Creatinine Standing Status: Future Expected Date: 11/01/2025 Expiration Date: 12/06/2025 [facility] Immediate Renal Function Panel, Plasma Standing Status: Future Expected Date: 11/01/2025 Expiration Date: 12/06/2025 Release to patient in MyChart: Immediate Problem List Items Addressed This Visit Severe obesity (BMI 35.0-39.9) with comorbidity (CMS/HCC) - Primary Relevant Orders CBC W/O Differential Urinalysis with reflex microscopic (Culture NOT Included) Vitamin D 25 Hydroxy PTH Intact Total Albumin-creatinine ratio, urine, random Protein, Random, Urine with Creatinine Renal Function Panel, Plasma Coronary artery disease involving [place]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[place] heart without angina pectoris Relevant Medications metoprolol tartrate (Lopressor) 25 MG tablet nitroglycerin (Nitrostat) 0.4 MG SL tablet prasugrel (Effient) 10 MG tablet Type 2 diabetes mellitus with chronic kidney disease, without long-term current use of insulin ([facility]) Relevant Medications losartan (Cozaar) 100 MG tablet metoprolol tartrate (Lopressor) 25 MG tablet aspirin 81 MG EC tablet furosemide (Lasix) 20 MG tablet glimepiride (Amaryl) 4 MG tablet insulin degludec (Tresiba FlexTouch) 200 UNIT/ML injection pen metFORMIN (Glucophage) 1000 MG tablet nitroglycerin (Nitrostat) 0.4 MG SL tablet rosuvastatin (Crestor) 20 MG tablet Other Relevant Orders CBC W/O Differential Urinalysis with reflex microscopic (Culture NOT Included) Vitamin D 25 Hydroxy PTH Intact Total Albumin-creatinine ratio, urine, random Protein, Random, Urine with Creatinine Renal Function Panel, Plasma CKD stage 3a, GFR 45-59 ml/min ([facility]) Relevant Medications losartan (Cozaar) 100 MG tablet metoprolol tartrate (Lopressor) 25 MG tablet furosemide (Lasix) 20 MG tablet nitroglycerin (Nitrostat) 0.4 MG SL tablet rosuvastatin (Crestor) 20 MG tablet Hypertensive chronic kidney disease with stage 1 through stage 4 chronic kidney disease, or unspecified chronic kidney disease Relevant Medications losartan (Cozaar) 100 MG tablet metoprolol tartrate (Lopressor) 25 MG tablet potassium chloride CR 10 MEQ PO ER tablet furosemide (Lasix) 20 MG tablet nitroglycerin (Nitrostat) 0.4 MG SL tablet rosuvastatin (Crestor) 20 MG tablet Chronic kidney disease-mineral and bone disorder (CKD-MBD) Relevant Medications losartan (Cozaar) 100 MG tablet metoprolol tartrate (Lopressor) 25 MG tablet furosemide (Lasix) 20 MG tablet nitroglycerin (Nitrostat) 0.4 MG SL tablet rosuvastatin (Crestor) 20 MG tablet I confirm that I have addressed the patient's longitudinal multifaceted and complex health related active and chronic conditions that will require ongoing care with myself or someone on my team. [1] Past Medical History: Diagnosis Date CAD (coronary artery disease) COPD (chronic obstructive pulmonary disease) ([facility]) GERD (gastroesophageal reflux disease) HHD (hypertensive heart disease) HLD (hyperlipidemia) Personal history of other diseases of the circulatory system History of cardiomegaly Personal history of other diseases of the circulatory system History of hypertension Personal history of other diseases of the musculoskeletal system and connective tissue History of arthritis Personal history of other mental and behavioral disorders History of anxiety Personal history of other mental and behavioral disorders History of bipolar disorder Sleep apnea [2] Patient Active Problem List Diagnosis Obesity (BMI 35.0-39.9 without comorbidity) Severe obesity (BMI 35.0-39.9) with comorbidity ([facility]) [3] Past Surgical History: Procedure Laterality Date NECK SURGERY N/A Neck Surgery from [facility] TOTAL KNEE ARTHROPLASTY Right Total Knee Replacement Right from [facility] TOTAL KNEE ARTHROPLASTY Left Total Knee Replacement Left from [facility] [4] Family History Problem Relation Name Age of Onset Conversions - Other Mother Patient's mother is Conversions - Other Father Patient's mother is [5] Allergies Allergen Reactions Hydrocodone-Acetaminophen Unknown - Patient states they do not know rxn details documented in this encounter Plan of Treatment Scheduled Orders Name Type Priority Associated Diagnoses Orde r Schedule CBC W/O Differential Lab Routine Severe obesity (BMI 35.0-39.9) with comorbidity (CMS/HCC) Type 2 diabetes mellitus with chronic kidney disease, without long-term current use of insulin, unspecified CKD stage (CMS/HCC) Expected: 11/01/2025 (Approximate), Expires: 12/06/2025 Urinalysis with reflex microscopic (Culture NOT Included) Lab Routine Severe obesity (BMI 35.0-39.9) with comorbidity ([facility]) Type 2 diabetes mellitus with chronic kidney disease, without long-term current use of insulin, unspecified CKD stage (CMS/HCC) Expected: 11/01/2025 (Approximate), Expires: 12/06/2025 Vitamin D 25 Hydroxy Lab Routine Severe obesity (BMI 35.0-39.9) with comorbidity (CMS/HCC) Type 2 diabetes mellitus with chronic kidney disease, without long-term current use of insulin, unspecified CKD stage (CMS/HCC) Expected: 11/01/2025 (Approximate), Expires: 12/06/2025 PTH Intact Total Lab Routine Severe obesity (BMI 35.0-39.9) with comorbidity (CMS/HCC) Type 2 diabetes mellitus with chronic kidney disease, without long-term current use of insulin, unspecified CKD stage ([facility]) Expected: 11/01/2025 (Approximate), Expires: 12/06/2025 Albumin-creatinine ratio, urine, random Lab Routine Severe obesity (BMI 35.0-39.9) with comorbidity ([facility]) Type 2 diabetes mellitus with chronic kidney disease, without long-term current use of insulin, unspecified CKD stage ([facility]) Expected: 11/01/2025 (Approximate), Expires: 12/06/2025 Protein, Random, Urine with Creatinine Lab Routine Severe obesity (BMI 35.0-39.9) with comorbidity ([facility]) Type 2 diabetes mellitus with chronic kidney disease, without long-term current use of insulin, unspecified CKD stage ([facility]) Expected: 11/01/2025 (Approximate), Expires: 12/06/2025 Renal Function Panel, Plasma Lab Routine Severe obesity (BMI 35.0-39.9) with comorbidity ([facility]) Type 2 diabetes mellitus with chronic kidney disease, without long-term current use of insulin, unspecified CKD stage ([facility]) Expected: 11/01/2025 (Approximate), Expires: 12/06/2025 documented as of this encounter Visit Diagnoses Diagnosis Severe obesity (BMI 35.0-39.9) with comorbidity ([facility])- Primary Coronary artery disease involving [place]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[place] heart without angina 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, without long-term current use of insulin, unspecified CKD stage ([facility]) CKD stage 3a, GFR 45-59 ml/min ([facility]) Hypertensive chronic kidney disease with stage 1 through stage 4 chronic kidney disease, or unspecified chronic kidney disease Chronic kidney disease-mineral and bone disorder (CKD-MBD) documented in this encounter Additional Health Concerns Assessment Noted Time A Body Mass Index follow-up plan has been documented for the patient 11/01/2024 1:08 PM EDT documented as of this encounter Care Teams Lidder Relationship Specialty Start Date End Date Maged Sharma MD [facility] [place] [address] PCP - General 07/31/20 documented as of this encounter
[2024-11-07] VITALS (18 sets, daily range): BP systolic 62–202; BP diastolic 36–169; PULSE 77–106; RESP 12–20; TEMP 35.7–36.4; O2SAT 89–95; BMI 36.6
--- NOTE | 2024-11-07 09:28 | ECG_ITS ---
APPROVED REPORT Exam: Resting ECG HR:97 bpm ECG Measurements Heart Rate 97 AXES DE 175 P 62 QRSd 118 QRS 87 QT 406 T 61 QTc 461 Conclusion SINUS RHYTHM PROBABLE INFERIOR MYOCARDIAL INFARCTION , OF INDETERMINATE AGE [35 ms Q WAVE IN II/aVF] ABNORMAL ECG UNCONFIRMED REPORT Electronically signed by : Isidro Blanco, 11/07/2024 15:59:10
--- NOTE | 2024-11-07 09:37 | CT_ITS ---
FINAL REPORT TECHNIQUE: Axial CT images were performed through the head. Coronal and sagittal reformatted images were submitted. This study was performed with techniques to keep radiation doses as low as reasonably achievable (ALARA). Individualized dose reduction techniques using automated exposure control or adjustment of mA and/or kV according to the patient's size were employed. CLINICAL HISTORY: fall, on ACs COMPARISON: None FINDINGS: CT HEAD: The ventricles are normal in size. There is no evidence of hemorrhage. There is no mass or edema identified. There is no abnormal extra-axial fluid seen. There is mucoperiosteal thickening. No air-fluid levels are seen. IMPRESSION: No acute intracranial process. Reviewed, Interpreted and Dictated by Tereso Guillen MD Transcribed by Gladys Bai Authenticated and [facility]
--- NOTE | 2024-11-07 09:37 | CT_ITS ---
FINAL REPORT TECHNIQUE: Axial images were obtained of the cervical spine by computed tomography. Coronal and sagittal reconstruction process performed. This study was performed with techniques to keep radiation doses as low as reasonably achievable (ALARA). Individualized dose reduction techniques using automated exposure control or adjustment of mA and/or kV according to the patient's size were employed. CLINICAL HISTORY: fall on ACs COMPARISON: None FINDINGS: CT CERVICAL SPINE: Prior anterior and interbody fusions of the C4-5, C5-6, and C6-7 levels are noted. There is minimal spondylolisthesis of C3 on C4. The facets are normally aligned. No acute bony abnormality is identified. No prevertebral soft tissue edema is noted. C2-3: No evidence of canal stenosis or neural foraminal narrowing. C3-4: A mild annular bulge is present with mild to moderate left neural foraminal narrowing. C4-5: Mild endplate hypertrophy is noted with posterior osteophytes, and moderate to severe bilateral neural foraminal narrowing. C5-6: Endplate hypertrophy, moderate right and moderate to severe left neural foraminal narrowing. C6-7: No evidence of canal stenosis or neural foraminal narrowing. C7-T1: No evidence of canal stenosis or neural foraminal narrowing. IMPRESSION: No acute bony abnormality is identified. Prior anterior and interbody fusion as described, with mild to moderate multilevel degenerative change. Reviewed, Interpreted and Dictated by Tereso Guillen MD Transcribed by Gladys Bai Authenticated and [facility]
--- NOTE | 2024-11-07 09:38 | XR_ITS ---
FINAL REPORT CLINICAL HISTORY: Shortness of breath COMPARISON: 06/23/2023 FINDINGS: Mild cardiomegaly is noted. The mediastinum is normal. The lungs are underinflated. There is no focal infiltrate or edema. There are no pleural effusions. There is no pneumothorax. There is no osseous abnormality. There is cervical fusion hardware in the lower cervical spine. IMPRESSION: Underinflation without acute cardiopulmonary process Reviewed, Interpreted and Dictated by Tereso Guillen MD Transcribed by Noa Scott Authenticated and [facility]
--- OUTSIDE RECORDS SUMMARY | 2024-11-07 09:41 | XMS_ITS | Encounter Summary ---
Author Organization [facility] Address [address] [place] [address] Care Team Providers Care Button Puncher Name Role Phone Maged Sharma MD Primary Care Provider [phone] Encounter Details Date Type Department Care Team (Late st Contact Info) Description 09/19/2024 Orders Only [facility] [address] [place] [phone] Loren Pike CKD (chronic kidney disease) stage [...] as of this encounter Plan of Treatment Scheduled Orders [...] ml/min (CMS/HCC) Expected: 09/19/2024 (Approximate), Expires: 03/22/2026 Protein, Random, Urine with Creatinine Lab Routine CKD (chronic kidney disease) stage 3, GFR 30-59 ml/min ([facility]) Expected: 09/19/2024 (Approximate), Expires: 03/22/2026 Urinalysis with reflex microscopic (Culture NOT Included) Lab Routine CKD (chronic kidney disease) stage 3, GFR 30-59 ml/min ([facility]) Expected: 09/19/2024 (Approximate), Expires: 03/22/2026 PTH Intact Total Lab Routine CKD (chronic kidney disease) stage 3, GFR 30-59 ml/min ([facility]) Vitamin D insufficiency Expected: 09/19/2024 (Approximate), Expires: 03/22/2026 Vitamin D 25 Hydroxy Lab Routine CKD (chronic kidney disease) stage 3, GFR 30-59 ml/min ([facility]) Vitamin D insufficiency Expected: 09/19/2024 (Approximate), Expires: 03/22/2026 documented as of this encounter Visit Diagnoses Diagnosis CKD (chronic kidney disease) stage 3, GFR 30-59 ml/min ([facility])- Primary Chronic kidney disease, Stage III (moderate) Vitamin D insufficiency documented in this encounter Care Teams Button Puncher Relationship Specialty Start Date End Date Maged Sharma MD [address] [place] [address] PCP - General 07/31/20 documented as of this encounter
--- OUTSIDE RECORDS SUMMARY | 2024-11-07 09:41 | XMS_ITS | Patient Health Record ---
[facility] Address [address] [place] [phone] Care Team Providers Care Cold Meat Cook Name Role Phone Todd Alvarado Primary Care Provider Sera Allen Unavailable [phone] Allergies Allergen (clinical drug ingredient) Drug/Non Drug [...] 1.38 Performing Lab: Notes/Report: Test performed by [facility] [facility] , [address], [place] [address] Jez Martines MD, Processing Technician CLIA: [id number] Sodium 142 135-145 mmol/L Potassium 4.9 3.5-5.3 [...] 29 Performing Lab: Notes/Report: Test performed by [facility], [address] , [address], [place] [address] Jez Martines MD, Processing Technician CLIA: [id number] Cholesterol 146 <200 mg/dL Triglycerides 378 <150 [...] Interpretation:normal Performing Lab: Notes/Report: Test performed by [facility] [address] [place] [address] [place] [address] Jez Martines MD, Processing Technician CLIA: [id number] PSA 0.98 <4.00 ng/mL Please note this is an ultrasensitive PSA assay with a lower limit of detection of 0.014 ng/mL. This test is performed by the [employer] ECLIA methodology. Values obtained with different assay methods or kits cannot be directly compared. P-TSH reflex to FT4 Reviewed date:03/28/2024 02:02:50 PM Interpretation:normal Performing Lab: Notes/Report: Test performed by [facility] [address] [place] [address] [place] [address] Jez Martines MD, Processing Technician CLIA: [id number] TSH reflex to FT4 4.35 0.43-5.25 mU/L [...] employed in healthcare? No Is patient an [facility] employee? N Is patient currently hospitalized? No [...] Interpretation:Normal Performing Lab: Notes/Report: Test performed by [facility] [address] [place] [address] , [address], [place] [address] Jez Martines MD, Processing Technician CLIA: [id number] Sodium 143 135-145 mmol/L Potassium 4.3 3.5-5.3 [...] 26 Performing Lab: Notes/Report: Test performed by [facility] [address] [place] [address] , [address], [place] [address] Jez Martines MD, Processing Technician CLIA: [id number] Cholesterol 94 <200 mg/dL Triglycerides 204 <150 [...] Interpretation:Normal Performing Lab: Notes/Report: Test performed by [facility] [address] , [address], [place] [address] Jez Martines MD, Processing Technician CLIA: [id number] TSH reflex to FT4 1.62 0.43-5.25 mU/L P-Microalbumin/Creatinine, R andom Urine Sample Reviewed date:08/30/2024 12:58:29 PM Interpretation:Normal Performing Lab: Notes/Report: Test performed by [facility], [address] , [address], [place] [address] Jez Martines MD, Processing Technician CLIA: [id number] Albumin/Creatinine Ratio, Urine 4 0-30 ug/mg Microalbumin, Urine, Random 0.9 Creatinine, Urine 251.0 proB[facility] Natriuretic Peptide Reviewed date:08/30/2024 12:58:29 PM Interpretation:Normal Performing Lab: Notes/Report: Test performed by [facility] [address] , [address], [place] [id number] Jez Martines MD, Processing Technician CLIA: [id number] [facility] Natriuretic Peptide 43 <300 pg/mL Please note the updated reference range values which are stratified by age. Positive >900 pg/mL Indeterminate 300-900 pg/mL Negative <300 pg/mL Medications Medication SIG (Take, Route, Frequency, Duration) Notes Start Date End Date Status Furosemide 40 MG 2 tabs orally once a day; Duration: 90 days Active Omeprazole 40 MG 1 cap(s) Orally once daily; Duration: 90 days Active Losartan Potassium 100 MG 1/2 orally once a day Active Prasugrel HCl 10 MG as directed Orally Active Pen Grampian 32G X 4 MM as directed 09/09/2022 [...] Onc e a day Not-Taking Droplet Pen Grampian 32G X 4 MM USE DIRECTED; Duration: [...] Status W/U Status Risk Notes Problem Hyperglycemia (05275630) Hyperglycemia (R73.9) Active confirmed Problem Essential hypertension (83795944) Essential hypertension (I10) Active confirmed Problem Onychogryposis (79888147) Onychogryposis (L60.2) Active confirmed Problem Morbid obesity (disorder) (745825409) Morbid (severe) obesity due to excess calories (E66.01) Active confirmed Problem Type 2 diabetes mellitus with other specified complication (E11.69) Active confirmed Problem Mixed hyperlipidemia (854051868) Mixed hyperlipidemia (E78.2) Active confirmed Problem Hypertensive heart failure (61553828) Hypertensive heart disease with heart failure (I11.0) Active confirmed Problem Simple chronic bronchitis (47525116) Simple chronic bronchitis (J41.0) Active confirmed Problem Chronic respiratory failure (68290538) Chronic respiratory failure, unspecified whether with hypoxia or hypercapnia (J96.10) Active confirmed Problem Onychomycosis (372818738) Onychomycosis (B35.1) Active confirmed Problem Arteriosclerotic vascular disease (90627525) Arteriosclerotic cardiovascular disease (I25.10) Active confirmed Problem Congestive heart failure (12401782) Congestive heart failure, unspecified (I50.9) Active confirmed Problem Long-term current use of insulin (328564457) skilled nursing (current) use of insulin (Z79.4) Active confirmed Problem COPD - Chronic obstructive pulmonary disease (12250859) Chronic obstructive pulmonary disease, unspecified COPD type (J44.9) Active confirmed Problem Obese class II (213813146426126) BMI 37.0-37.9, adult (Z68.37) Active confirmed Problem Pneumonia (647795862) Pneumonia of both lower lobes due to infectious organism (J18.9) Active confirmed Problem Hyperglycemia due to type 2 diabetes mellitus (726646474024998) Type 2 diabetes mellitus with hyperglycemia, without long-term current use of insulin (E11.65) Active confirmed Problem Stasis dermatitis (disorder) (35245036) Stasis dermatitis of both legs (I87.2) Active confirmed Problem Obese class II (694170648686393) Adult BMI 35.0-35.9 kg/sq m (Z68.35) Active confirmed Problem Hyperglycemia due to type 2 diabetes mellitus (845096678335157) Type 2 diabetes mellitus with hyperglycemia, unspecified whether fdc insulin use (E11.65) Active confirmed Problem Plain X-ray of chest abnormal (finding) (2985408849) Abnormal chest x-ray (R93.89) Active confirmed Problem Diastolic dysfunction (4668306) Diastolic dysfunction (I51.89) Active confirmed Problem Gastroesophageal reflux disease (663315742) Gastroesophageal reflux disease, unspecified whether esophagitis present (K21.9) Active confirmed Problem Stasis dermatitis of lower limb due to chronic peripheral venous hypertension (disorder) (328814730) Stasis dermatitis of lower extremity due to chronic peripheral vascular hypertension (I87.329) Active confirmed Vital Signs Heart Rate 87 /min 08/28/2024 Blood pressure diastolic 90 mm Hg 08/28/2024 Height 70 in 08/28/2024 Blood pressure systolic 150 mm Hg 08/28/2024 Weight 262.6 lbs 08/28/2024 BMI 37.68 kg/m2 08/28/2024 Encounters Encounter Location Date Provider Diagnosis [facility] [address] [facility] [address] [place] [id number] 03/27/2024 Sera Allen Essential hypertensi on I10 ; Arteriosclerotic cardiovascular disease I25.10 ; Type 2 diabetes mellitus with other specified complication E11.69 ; Mixed hyperlipidemia E78.2 ; Screening PSA (prostate specific antigen) Z12.5 and Encounter for screening colonoscopy Z12.11 [facility] [address] [facility] [address] [place] [id number] 04/18/2024 Sera Allen Acute URI J06.9 [facility] [address] [facility] [address] [place] [id number] 08/28/2024 Sera Allen Intermittent diarrhe a R19.7 [...] obstructive pulmonary disease, unspecified COPD type J44.9 [facility] [address] [facility] [address] [place] [id number] 03/28/2024 Sera [place] [facility] [address] [facility] [address] [place], [place] [id number] 04/18/2024 Sera [place] [facility] [address] [facility] [address] [place], [place] [id number] 05/08/2024 Todd [place] Gastroesophageal ref lux disease, unspecified whether esophagitis present K21.9 [facility] [address] [facility] [address] [place], [place] [id number] 07/26/2024 Todd Alvarado Lower extremity clifford a R60.0 [facility] [address] [facility] [address] [place] [id number] 08/09/2024 Todd Alvarado [facility] [address] [place] [id number] 08/30/2024 Sera Allen Assessments Encounter Date Diagnosis [...] Name:Sera menezes, 02/28/2025 09:00:00 AM, [address] [facility] [address], [place], [place], [id number], Insurance Providers Payer Name Payer Address Payer Phone Subscriber Number Group Number Insured Name Patient Relationship to Insured Coverage Start Date Coverage End Date [employer] [address] [place] [address] [phone] [id number] Milton Kohler Self - patient is the insured [employer] [address] [place] [address] [id number] Milton Kohler Self - patient is the insured Medical (General) History Medical History History ICD Code COPD enlarged heart HBP Depression, bipolar Arthritis T2DM Surgical History Surgery Date(Month/Year) Bilateral Knee 07/2006 Nerve Stimulator Knee x6 Back Hospitalization History Reason Date(Month/Year)
--- OUTSIDE RECORDS SUMMARY | 2024-11-07 09:41 | XMS_ITS | Clinical Summary ---
Author Organization [facility] Address [address] [place] [address] Phone Care Team Providers Care Hospital Nurse Liaison Name Role Phone Unavailable Primary Care Provider [...] patient's age to complete this topic Insurance [facility] MEDICARE ADVANTAGE MR Member Subscriber Plan / Payer (Ef fective 2024-Present) Name:Milton Bassett Relation to Subscriber:Self Name:Milton Bassett Payer ID:Not on file Group ID:[id number] Type:Not on file Address: [place] [phone]
--- NOTE | 2024-11-07 09:42 | HMH.EDGENADL ---
Discharge Plan Disposition Patient Disposition: Xfer Other Prescriptions Prescriptions: No Action quetiapine [Seroquel] 200 mg tablet 450 mg PO QDAY nitroglycerin [Nitrostat] 0.4 mg tablet, sublingual 0.4 mg sublingual Q5M PRN (Reason: chest pain) Qty: 20 0RF Rx Instructions: do not exceed 3 doses per episode ipratropium-albuterol 0.5 mg-3 mg(2.5 mg base)/3 mL solution for nebulization 3 ml inhalation QID PRN (Reason: shortness of breath or wheezing) 90 Days Qty: 270 2RF metformin 500 mg tablet 1,000 mg PO BID lamotrigine 200 mg tablet 200 mg PO BID glimepiride 4 mg tablet 4 mg PO DAILY vilazodone 40 mg tablet 40 mg PO DAILY prasugrel HCl [Effient] 10 mg tablet 10 mg PO DAILY Qty: 30 11RF potassium chloride 10 mEq tablet extended release 10 meq PO DAILY insulin degludec [Tresiba FlexTouch U-200] 200 unit/mL (3 mL) insulin pen 5 unit SQ DAILY rosuvastatin 20 mg tablet 20 mg PO DAILY Qty: 90 3RF Rx Instructions: TAKE 1 TABLET DAILY FOR CHOLESTEROL albuterol sulfate 90 mcg/actuation HFA aerosol inhaler See Rx Instructions .ROUTE .COMPLEX Qty: 1 0RF Dose Instruction: INHALE 1 PUFF FOUR TIMES DAILY NEEDED FOR SHORTNESS OF BREATH OR FOR WHEEZING Rx Instructions: INHALE 1 PUFF FOUR TIMES DAILY NEEDED FOR SHORTNESS OF BREATH OR FOR WHEEZING metoprolol succinate 50 mg tablet extended release 24 hr See Rx Instructions .ROUTE .COMPLEX Qty: 90 3RF Dose Instruction: TAKE 1 TABLET EVERY DAY Rx Instructions: TAKE 1 TABLET EVERY DAY losartan 100 mg tablet 100 mg PO DAILY Qty: 90 3RF omeprazole 40 mg capsule,delayed release(DR/EC) 40 mg PO DAILY Qty: 90 3RF peg 3350-electrolytes [Golytely] 236-22.74-6.74 -5.86 gram recon soln 240 ml PO Q10M Qty: 4000 0RF Rx Instructions: at 6pm day before surgery take first dose. After mixing prep as directed, drink half of the gallon by drinking 8 ounces, or 1 cup, every 15 mins until half is remaining. refrigerate the remaining and continue clear liquids till midnight. 5-6 hours before exam, take the second dosage, 8oz every 15 mins till gone. aspirin [Adult Aspirin Regimen] 81 mg tablet,delayed release (DR/EC) 81 mg PO DAILY furosemide 40 mg tablet 20 mg PO DAILY Rx Instructions: TAKE 1 TABLET DAILY FOR EDEMA (SWELLING) Stiolto Respimat 2.5-2.5 mcg/actuation mist 2 puff inhalation DAILY methocarbamol 750 mg tablet 750 mg PO BID Qty: 180 0RF gabapentin [Neurontin] 800 mg tablet 800 mg PO TID Qty: 270 0RF Referrals Follow up/Referrals: Gelacio Lebron MD [Primary Care Provider, Medical] - See instructions Clinical Impressions Clinical Impression: Nontraumatic shock, Syncope, Head injury, Abrasion of forehead, Orthostatic syncope, Hypoxia, FIORDALIZA (acute kidney injury) Instructions Patient Instructions: DI for Syncope in Adults (Fainting), DI for Syncope in Children (Fainting) Print Language Print Language: Macedonian Discharge ED Provider: Cole Blanco General Adult HPI General Chief complaint: Syncope Stated complaint: Syncope Time Seen by Provider: 11/07/24 09:37 History of Present Illness HPI narrative: Patient is a 58-year-old male presenting today by EMS for multiple syncopal episodes. He is accompanied by his who also is a historian. She and he states that he got up to go to the bathroom and is in his normal state of health but around 8 AM suddenly became lightheaded. This was before he used the bathroom but he lost consciousness falling to hit his head. He is on anticoagulants does not know exactly what he is taking but states he has a history of a stent. From historical standpoint and chart review he is currently taking aspirin and prasugrel no other anticoagulants. His states that after this the patient tried to get up 2 more times and lost consciousness 2 additional times all 3 times striking his head with significant falls. Subsequently EMS were called and he was stable and route. Patient states he feels worn out is supposed to be wearing his oxygen for COPD but has not been wearing it recently states that the majority of his symptoms are positional at the moment. He is also now complaining of chest pain. States chest pain started just prior to arrival. Substernal nonradiating has not had an opportunity to be exertional. No fevers chills or other preceding symptoms. His only other symptoms associated with today's presentation are multiple nausea and vomiting episodes. Related Data Home Medications ?Medication ?Instructions ?Recorded ?Confirmed potassium chloride 10 mEq 10 meq PO DAILY Supplement 07/23/20 10/31/24 tablet,extended release quetiapine 200 mg tablet (Seroquel) 450 mg PO QDAY Insomnia 07/22/21 10/31/24 aspirin 81 mg tablet,delayed 81 mg PO DAILY Blood thinner 05/23/22 10/31/24 release (Adult Aspirin Regimen) furosemide 40 mg tablet 20 mg PO DAILY FLUID 09/05/22 10/31/24 insulin degludec 200 unit/mL (3 5 unit SQ DAILY . 09/05/22 10/31/24 mL) subcutaneous pen (Tresiba FlexTouch U-200 insulin) tiotropium 2.5 mcg-olodaterol 2.5 2 puff inhalation DAILY Breathing 09/28/22 10/31/24 mcg/actuation mist for inhalation Problems (Stiolto Respimat) glimepiride 4 mg tablet 4 mg PO DAILY 10/05/23 10/31/24 lamotrigine 200 mg tablet 200 mg PO BID 10/05/23 10/31/24 metformin 500 mg tablet 1,000 mg PO BID 10/05/23 10/31/24 Held on 05/13/24. Instructions: Resume on 05/16/24. HOLD FOR 2 DAYS vilazodone 40 mg tablet 40 mg PO DAILY 10/05/23 10/31/24 Previous Rx's ?Medication ?Instructions ?Recorded nitroglycerin 0.4 mg sublingual 0.4 mg sublingual Q5M PRN chest 05/20/22 tablet (Nitrostat) pain #20 tabs ipratropium 0.5 mg-albuterol 3 mg 3 ml inhalation QID PRN shortness 09/13/22 (2.5 mg base)/3 mL nebulization of breath or wheezing 90 days #270 soln mL rosuvastatin 20 mg tablet 20 mg PO DAILY Cholesterol #90 tabs 05/31/23 albuterol sulfate 90 mcg/actuation See Rx Instructions .Route 08/28/23 aerosol inhaler .COMPLEX #1 ea metoprolol succinate 50 mg See Rx Instructions .Route 01/22/24 tablet,extended release 24 hr .COMPLEX #90 tabs losartan 100 mg tablet 100 mg PO DAILY BLOOD PRESSURE #90 02/19/24 tabs omeprazole 40 mg capsule,delayed 40 mg PO DAILY GERD #90 caps 04/11/24 release prasugrel HCl 10 mg tablet 10 mg PO DAILY #30 tabs 05/20/24 (Effient) gabapentin 800 mg tablet 800 mg PO TID #270 tabs 08/30/24 (Neurontin) methocarbamol 750 mg tablet 750 mg PO BID #180 tabs 08/30/24 peg 3350-electrolytes 236 240 ml PO Q10M colonscopy #4,000 mL 09/25/24 gram-22.74 gram-6.74 gram-5.86 gram solution (Golytely) Allergies Allergy/AdvReac Type Severity Reaction Status Date / Time hydrocodone (From VICODIN) Allergy Unknown itching Verified 10/31/24 09:44 [facility] Disclaimer: The information contained in this section may have been updated after the patient was seen, as this information can be updated by other users. Medical History Pre-op exam Abnormal findings on diagnostic imaging of heart and coronary circulation Sleep apnea Nocturnal hypoxemia Chronic hypoxemic respiratory failure COPD (chronic obstructive pulmonary disease) Screening for lung cancer Pulmonary emphysema Smoking greater than 30 pack years Tobacco abuse disorder Dyspnea on exertion Tobacco abuse counseling Elevated left ventricular end-diastolic pressure (LVEDP) Sinus tachycardia Gastroesophageal reflux disease Dyspnea Edema HLD (hyperlipidemia) HHD (hypertensive heart disease) Non-ischemic cardiomyopathy CAD (coronary artery disease) NYHA class 3 heart failure with reduced ejection fraction NYHA class 3 acute on chronic systolic heart failure Other forms of angina pectoris Surgical History History of surgery cardiac stent x1 Status post insertion of nerve stimulator removed Hx of cervical spine surgery History of arthroscopic knee surgery Family History Other Family history of cancer Family history of coronary artery disease Family history of diabetes mellitus Social History Smoking Status: Current every day smoker tobacco type: cigarettes packs per day: 1 pack-years: 40 alcohol intake: never substance use type: denies use current occupational status: disabled Travel in the last 8 weeks?: None household members: spouse housing: house lives independently: No marital status: education level: high school service: No [place] [facility]: No current occupational exposures/hazards: No caffeine: Yes special deneen needs: No agree to transfusion: No do you feel safe at home: Yes victim of physical abuse: No victim of emotional abuse: No victim of sexual abuse: No would you like helpful sources: No Have you lived/traveled outside [place] in past 30 days?: No Contact w/someone who lives/traveled outside US past 30 days?: No Exposure to someone with infectious disease in past 14 days?: No Do you have a fever (greater than 100.4 F or 38 C)?: No Have you tested positive for COVID-19?: No Exposed to someone with COVID-19 in past 14 days?: No Do you have a sore throat?: No Do you have a cough?: No Do you have any weakness?: No Do you have any diarrhea?: No Are you experiencing any unusual bleeding?: No Do you have any muscle aches/pain?: No Do you have any abdominal pain?: No Are you experiencing loss of taste or smell?: No Other Medical History Have you received the Flu Vaccine for this season: No Have you received the Pneumonia Vaccine: Yes ROS Obtained: Yes All systems reviewed & no additional complaints except as documented Physical Exam General General appearance: alert Head Head exam: other (Patient has obvious abrasions and blunt trauma to the forehead no depressed skull fracture noted no More[place] sign or raccoon eyes) Neck Neck exam: Absent tenderness Respiratory Respiratory exam: Present other (Oxygen saturation is 85% on room air placed on 3 L nasal cannula); Absent normal lung sounds bilaterally or respiratory distress Cardiovascular Cardiovascular exam: Present tachycardia (Heart rate read around 100 and regular) Abdominal Exam Abdominal exam: Present soft; Absent distention Neurological Exam Neurological exam: Present alert, oriented X3, CN II-XII intact and other (Posterior circulation exam unremarkable patient is somewhat tremulous however); Absent motor sensory deficit Medical Decision Making Medical Records Screening: Per USPSTF and CDC recommendations, given the prevalence of disease in our region, it is our hospital?s policy to screen for HIV and viral Hepatitis for all patients aged 18 and over and those with ongoing risk factors. [place] Inquiry Pt receiving controlled substance: No Vital Signs: 11/07/24 09:33 11/07/24 09:35 11/07/24 09:45 Temperature 96.3 F L Temperature Source Axillary Pulse Rate 106 H 94 H Pulse Rate [Right Brachial] 96 H Respiratory Rate 20 16 12 Blood Pressure 197/169 H 202/157 H Blood Pressure [Right Arm] 187/157 H Blood Pressure Mean Blood Pressure Mean [Right Arm] 167 Blood Pressure Source [Right Arm] Automatic Cuff 02 Sat by Pulse Oximetry 89 L 91 L 91 L Oxygen Delivery Method Room Air 11/07/24 09:49 11/07/24 10:11 11/07/24 10:13 Temperature 97.3 F L Temperature Source Rectal Pulse Rate Pulse Rate [Right Brachial] Respiratory Rate 16 Blood Pressure 149/129 H 63/44 L Blood Pressure [Right Arm] Blood Pressure Mean 48 Blood Pressure Mean [Right Arm] Blood Pressure Source [Right Arm] 02 Sat by Pulse Oximetry Oxygen Delivery Method 11/07/24 10:13 11/07/24 10:13 11/07/24 10:16 Temperature Temperature Source Pulse Rate 91 H 86 Pulse Rate [Right Brachial] Respiratory Rate 15 14 Blood Pressure 62/38 L 62/38 L 73/43 L Blood Pressure [Right Arm] Blood Pressure Mean 46 Blood Pressure Mean [Right Arm] Blood Pressure Source [Right Arm] 02 Sat by Pulse Oximetry Oxygen Delivery Method 11/07/24 10:18 11/07/24 10:39 11/07/24 10:42 Temperature Temperature Source Pulse Rate 77 85 77 Pulse Rate [Right Brachial] Respiratory Rate 14 13 15 Blood Pressure 72/48 L 72/36 L 68/42 L Blood Pressure [Right Arm] Blood Pressure Mean Blood Pressure Mean [Right Arm] Blood Pressure Source [Right Arm] 02 Sat by Pulse Oximetry 93 L 89 L Oxygen Delivery Method 11/07/24 10:45 11/07/24 10:50 11/07/24 10:59 Temperature Temperature Source Pulse Rate 83 83 82 Pulse Rate [Right Brachial] Respiratory Rate 17 14 14 Blood Pressure 76/50 L 70/52 L 83/58 L Blood Pressure [Right Arm] Blood Pressure Mean Blood Pressure Mean [Right Arm] Blood Pressure Source [Right Arm] 02 Sat by Pulse Oximetry 92 L 92 L 93 L Oxygen Delivery Method 11/07/24 11:00 11/07/24 11:07 Temperature Temperature Source Pulse Rate 83 77 Pulse Rate [Right Brachial] Respiratory Rate 13 16 Blood Pressure 72/57 L 84/61 L Blood Pressure [Right Arm] Blood Pressure Mean Blood Pressure Mean [Right Arm] Blood Pressure Source [Right Arm] 02 Sat by Pulse Oximetry 93 L 93 L Oxygen Delivery Method Lab Data Lab results reviewed: Yes I reviewed the patient's lab results. Lab Results 11/07/24 09:30: WBC 13.2 H, RBC 5.59, Hgb 15.3, Hct 49.2, MCV 88.0, MCH 27.4, MCHC 31.1 L, RDW 15.3, Plt Count 179, MPV 11.4 H, Neut % (Auto) 71.8, Lymph % (Auto) 19.5, [place] % (Auto) 7.0, Eos % (Auto) 0.8, Baso % (Auto) 0.4, Neut # (Auto) 9.5 H, Lymph # (Auto) 2.6, [place] # (Auto) 0.9, Eos # (Auto) 0.1, Baso # (Auto) 0.1, PT 11.5, INR 1.04, APTT 28.1, D-Dimer 0.78 H, Sodium 136, Potassium 4.2, Chloride 95 L, Carbon Dioxide 26, Anion Gap 19.2 H, BUN 32 H, Creatinine 4.00 H, Estimated Creat Clear 33, Estimated GFR 16 L*, Est GFR ( Amer) 19 L*, Glucose 101 H, Calcium 9.7, Total Bilirubin 0.6, AST 38, ALT 34, Alkaline Phosphatase 57, Troponin I < 0.01, NT-Pro-B Natriuret Pep 98.1, Total Protein 7.8, Albumin 4.5, Globulin 3.3 H, Albumin/Globulin Ratio 1.4 11/07/24 09:39: VBG pH 7.31, VBG pCO2 54.5 H, VBG pO2 46.7 H, VBG HCO3 26.9, VBG Total CO2 28.6 H, VBG O2 Saturation 81.3 H, VBG Base Excess 0.7, VBG Lactic Acid 4.8 H 11/07/24 09:30 11/07/24 09:30 Orders (Tests/Meds): ED MEDICATIONS Generic Name Dose Route Start Last Admin Trade Name Freq PRN Reason Stop Dose Admin Nicardipine HCl 25 mg/ Sodium 250 mls @ 50 mls/hr 11/07/24 09:59 11/07/24 11:12 Chloride IV 12/07/24 09:58 Not Given .Q5H LAZARUS Protocol 5 MG/HR Metronidazole 500 mg in 100 mls @ 100 mls/hr 11/07/24 11:01 11/07/24 11:23 Flagyl 500mg/100ml Ivpb IV 11/07/24 12:00 100 mls/hr ONCE ONE Administration Lactated Ringer's 1,000 mls @ 999 mls/hr 11/07/24 11:15 11/07/24 11:08 Lactated Ringer's 1000 Ml Bag IV 11/07/24 12:15 999 mls/hr .Q1H1M LAZARUS Administration Vancomycin HCl 2,000 mg/ 250 mls @ 125 mls/hr 11/07/24 11:15 11/07/24 11:19 Sodium Chloride IV 11/07/24 13:14 125 mls/hr ONCE ONE Administration Discontinued Medications Generic Name Dose Route Start Last Admin Trade Name Freq PRN Reason Stop Dose Admin Acetaminophen 1,000 mg 11/07/24 09:37 11/07/24 10:04 Acetaminophen 1,000mg/100ml Vial IV 11/07/24 09:38 1,000 mg ONCE ONE Administration Lactated Ringer's 1,000 mls @ 999 mls/hr 11/07/24 09:45 11/07/24 11:08 Lactated Ringer's 1000 Ml Bag IV 11/07/24 10:45 Infused .Q1H1M LAZARUS Infusion Cefepime HCl 2 gm/ Sodium 100 mls @ 200 mls/hr 11/07/24 11:01 11/07/24 11:22 Chloride IV 11/07/24 11:30 200 mls/hr ONCE ONE Administration Miscellaneous 1 each 11/07/24 11:15 Vancomycin Consult Request NOTAPPLIC 12/07/24 11:14 CONSULT [facility]Y [facility] Ondansetron HCl 4 mg 11/07/24 09:37 11/07/24 10:04 Ondansetron 4mg/2ml Vial IV 11/07/24 09:38 4 mg ONCE ONE Administration ORDERS Category Date Time Status CT cervical spine wo con Stat Cat Scan 11/07/24 09:[address] head/brain wo con Stat Cat Scan 11/07/24 09:37 Taken CXR --portable [XR chest portable] Stat Exams 08/21/25 09:38 Taken POCUS Point of Care (ER Only) Stat Exams 11/07/24 10:11 Completed BNP [NT Pro Brain Natriuretic Pep.] Stat Lab 11/07/24 09:30 Completed CBC w/Auto Diff [Complete Blood Count Auto Diff] Stat Lab 11/07/24 09:30 Completed CMP [Comprehensive Metabolic Panel] Stat Lab 11/07/24 09:30 Completed D-Dimer Stat Lab 11/07/24 09:30 Completed HIV Combo Routine Lab 11/07/24 09:30 Received Hepatitis C Ab Qual. W/ RFX Routine Lab 11/07/24 09:30 Received Lactate Venous Stat Lab 11/07/24 09:37 Ordered PT/PTT Stat Lab 11/07/24 09:30 Completed Trop I [Troponin I] Stat Lab 11/07/24 09:30 Completed Troponin I Q3H Lab 11/07/24 12:45 Ordered Troponin I Q3H Lab 11/07/24 15:45 Ordered UA [Urinalysis and Microscopic] Stat Lab 11/07/24 11:01 Ordered Blood Culture Stat Micro 11/07/24 11:16 Received Venous Blood Gas Stat RT 11/07/24 09:39 Completed ECG Data Tracing #1: I reviewed this ECG and interpreted as documented below: Ventricular to 97 normal sinus rhythm no acute ischemic changes noted normal axis no significant conduction abnormalities noted Medical Decision Narrative: 58-year-old with above history and physical presents today profoundly hypertensive but a nonfocal neurologic exam with multiple syncopal episodes. EKG was performed in the midst of him feeling very lightheaded without any obvious arrhythmia noted. We performed bedside orthostatics which did not significantly change his blood pressure or his heart rate however he was symptomatic upon changing position stating he felt like he was in a pass out with sitting or standing. Differential includes press, orthostatic syncope, intracranial hemorrhage from trauma and being on antiplatelets, pulmonary embolism, side effects from prolonged lack of oxygen supplementation, hypercapnia etc. Blood workup is pending will reassess shortly. CT scans performed which I personally interpreted showed no acute emergent pathology specifically no evidence of cervical spine fracture or intracranial hemorrhage. On reassessment patient is actually profoundly hypotensive on serial measurements with multiple different cuffs and different positioning. He continues to mentate and have decent peripheral perfusion however this has been repeated with large extra-large and manual cuffs on both arms and seems to be real. Holding off on invasive measurements at the moment. [place] exam was performed without any obvious cause of hypotension noted. Labs are returning at this point he has profound acute kidney injury without a significant elevation of BUN/creatinine ratio likely some intrinsic pathology creatinine is 4 baseline of about 1.5. No significant leukocytosis or other evidence of SIRS criteria. However after a liter of fluid patient remains hypotensive maps less than 65. Lactate was also 5. Given the fact that the majority of nontraumatic shock is septic shock will treat with broad-spectrum antibiotics even though he does not have an obvious source of infection from historical or physical exam standpoint. Serial assessments continue to have no significant chest pain back pain abdominal pain etc. I held off on angiography imaging given his GFR less than 30. There is significant diagnostic uncertainty today at the moment treating him with aggressive IV fluid resuscitation as his LVEF is normal no significant pulmonary edema on chest x-ray or bedside ultrasound in addition to broad-spectrum antibiotics. He will need to be transferred where there is renal coverage and ICU management. Family is aware there is diagnostic uncertainty that is ongoing. Reassessment 1133 patient's MAP is still below 65 or right around 65 on serial assessments is nontachycardic no obvious source of infection but we are treating possible septic shock but there remains ongoing diagnostic uncertainty as stated above. Patient continues to have no chest pain back pain or any other symptoms concerning for possible vascular dissection etc. I spoke with Dr. Branch at [facility] ICU who agreed to accept this patient to their ICU for further management. If patient's maps remained below 65 every second liter we will continue with pressor initiation. He states they can place an A-line once the patient gets there. Of note on our orders there was guarding which was initially ordered as there was concern for endorgan damage with acute kidney injury and severe hypertension but in retrospect the initial hypertensive measurements were likely false given the numerous and serial hypotensive measurements with multiple different cuff sizes including manual cuffs. Procedures Miscellaneous Procedure Procedure Performed: Limited cardiac ultrasound Indication: Hypotension Identified structures: The heart was visualized in the parasternal long axis, parastenal short axis, apical four chamber and subxyphiod views. The IVC was visualized in the short axis and long axis at its entry into the right atrium. Findings: Normal LVEF no obvious significant right heart strain no significant pericardial effusion Impression: Unremarkable limited ultrasound of the heart Images were saved to permanent archive The study was technically adequate CPT: 35400-71 This study was performed by me, and I personally interpreted all images/videos. Based on my clinical judgement, these images were adequate and did not necessitate further imaging. Limited [place] exam Indication hypotension Findings no obvious pericardial effusion pneumothorax abnormalities in the lungs intraperitoneal fluid AAA etc. Unremarkable limited rest exam images were saved Critical Care Critical Care Time Critical Care Time: Yes Attestation: On 11/07/24, the high probability of a clinically significant, sudden or life threatening deterioration of the following system(s) required my full and direct attention, intervention and personal management. The time I documented below is in addition to time spent performing reported procedures but includes the following listed in this critical care notation. Total Time Total Critical Care Time: 65
--- OUTSIDE RECORDS SUMMARY | 2024-11-07 09:42 | XMS_ITS | Encounter Summary ---
Author Organization [facility] Address [address] [place] [address] Care Team Providers Care Medical Sonographer Name Role Phone Maged Sharma MD Primary Care Provider [phone] Encounter Details Date Type Department Care Team (Latest Contact Info) Description 11/01/2024 Travel Social History Tobacco Use Types Packs/Day Years Used Date Smoking Tobacco: Every Day Cigarettes 1 40 Started: 11/01/1984 Smokeless Tobacco: Never Alcohol Use Standard Drinks/Week Comments No 0 [...] on file documented as of this encounter Functional Status documented as of this encounter Plan of Treatment Not on file documented as of this encounter Visit Diagnoses Not on filedocumented in this encounter Additional Health Concerns Assessment Noted Time A Body Mass Index follow-up plan has been documented for the patient 11/01/2024 1:08 PM EDT documented as of this encounter Care Teams Medical Sonographer Relationship Specialty Start Date End Date Maged [place] [address] PCP - General 07/31/20 documented as of this encounter
--- OUTSIDE RECORDS SUMMARY | 2024-11-07 09:42 | XMS_ITS | Encounter Summary ---
Author Organization [facility] Address [address] [place] [address] Care Team Providers Care Plant Guide Name Role Phone Maged Sharma MD Primary Care Provider [phone] Encounter Details Date Type Department Care Team (Late st Contact Info) Description 11/01/2024 Orders Only [facility] [address] [place] [id number] [place] Social History Tobacco Use Types Packs/Day Years [...] documented as of this encounter Care Teams Plant Guide Relationship Specialty Start Date End Date Maged Sharma MD [address] [place] [address] PCP - General 07/31/20 documented as of this encounter
--- OUTSIDE RECORDS SUMMARY | 2024-11-07 09:42 | XMS_ITS | Clinical Summary ---
Author Organization 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 8 Active losartan (Cozaar) 100 MG tablet Take 1 tablet by mouth daily. 8 Active metoprolol tartrate (Lopressor) 25 MG tablet 8 Active potassium chloride CR 10 MEQ PO ER tablet 8 Active albuterol 108 (90 Base) MCG/ACT inhaler Inhale 2 puffs 4 times a day. Active aspirin 81 MG EC tablet Take 1 tablet by mouth daily. Active furosemide (Lasix) 20 MG tablet Take 1 tablet by mouth. Active gabapentin (Neurontin) 800 MG tablet Take 1 tablet by mouth 3 times a day. Active glimepiride (Amaryl) 4 MG tablet Take 1 tablet by mouth daily before breakfast. Active insulin degludec (Tresiba FlexTouch) 200 UNIT/ML injection pen Inject 10 Units under the skin nightly. Active ipratropium-alb uterol (Duo-Neb) 0.5-2.5 mg/3 mL nebulizer solution Take 3 mL by nebulization every 6 hours as needed for wheezing. Active metFORMIN (Glucophage) 1000 MG tablet Take 1 tablet by mouth 2 times a day with meals. Active methocarbamol (Robaxin) 750 MG tablet Take 1 tablet by mouth 4 times a day. Active nitroglycerin (Nitrostat) 0.[address] 1 tablet under the tongue every 5 minutes as needed for chest pain. Active omeprazole (PriLOSEC) [address] capsule Take 1 capsule by mouth daily. Do not crush or chew. Active prasugrel (Effient) 10 MG tablet Take 1 tablet by mouth daily. Active QUETIAPINE FUMARATE ER PO Take 450 mg by mouth daily. Active rosuvastatin (Crestor) 20 MG tablet Take 1 tablet by mouth nightly. Active tiotropium-olod aterol (Stiolto Respimat) 2.5-2.5 MCG/ACT aerosol solution inhaler Inhale 2 Inhalations daily. Active vilazodone (Viibryd) 40 mg tablet Take 1 tablet by mouth daily with breakfast. Active Active Problems Problem Noted Date Diagnosed Date Obesity (BMI 35.0-39.9 without comorbidity) 10/18 Severe obesity (BMI 35.0-39.9) with comorbidity 11/01/2024 Coronary artery disease invo lving ugashik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ugashik heart without angina pectoris 11/01/2024 Type 2 diabetes mellitus wit h chronic kidney disease, without long-term current use of insulin 11/01/2024 CKD stage 3a, GFR 45-59 ml/min 11/01/2024 Hypertensive chronic kidney disease with stage 1 through stage 4 chronic kidney disease, or unspecified chronic kidney disease 11/01/2024 Chronic kidney disease-mineral and bone disorder (CKD-MBD) 11/01/2024 Encounters Date Type Department Care Team Description 11/01/2024 12:20 PM EDT Office Visit [facility] [address] [place] [address] Guillaume Reeves MD Severe obesity (BMI 35.0-39.9) with comorbidity (CMS/HCC) (Primary Dx); Coronary artery disease involving ugashik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ugashik heart without angina pectoris; Type 2 diabetes mellitus with chronic kidney disease, without long-term current use of insulin, unspecified CKD stage (CMS/HCC); CKD stage 3a, GFR 45-59 ml/min (CMS/HCC); Hypertensive chronic kidney disease with stage 1 through stage 4 chronic kidney disease, or unspecified chronic kidney disease; Chronic kidney disease-mineral and bone disorder (CKD-MBD) 11/01/2024 Orders Only [facility] [address] [phone] [place] 11/01/2024 Travel 09/19/2024 Orders Only [facility] [address] [place] [address] [place] CKD (chronic kidney disease) stage 3, GFR 30-59 ml/min ([facility]) (Primary Dx); Vitamin D insufficiency from Last 3 Months Immunizations Immunization Administration Dates Next Due Pneumococcal Polysaccharide PPV23 01/12/2023 TD (adult), 2 Lf tetanus tox oid, preservative free, adsorbed 05/23/1996 Family History Medical History Relation Name Comments [...] Pulse 99 11/01/2024 12:17 PM EDT Temperature 36.4 C (97.6 F) 05/09/2019 10:04 AM EST Respiratory Rate 18 11/01/2024 12:17 PM EDT Oxygen Saturation 94% 11/01/2024 12:17 PM EDT Inhaled Oxygen Concentration - - Weight 117 kg (258 lb) 11/01/2024 12:17 PM EDT Height 177.8 cm (5' 10 ) 11/01/2024 12:17 PM EDT Body Mass Index 37.02 11/01/2024 12:17 PM EDT Plan of Treatment Health Maintenance Due Date Last Done Comments [facility]-Depression Screening 1966 [facility]-Diabetes: Hemoglobin A1C 1966 [facility]-HIV Screening 1966 [facility]-Hepatitis C Screening 1966 [facility]-Medicare Annual Wellness (AWV) 1966 [facility]-/Child/Adol SDOH Screenings 1966 Diabetes: Dental Exam 1976 [facility]- SDOH Screenings 1984 [facility]-Adult SDOH Screenings 1984 [facility]-Hepatitis B Vaccines (1 of 3 - 19+ 3-dose series) 1985 [facility]-DTaP,Tdap,and Td Vaccine s (1 - Tdap) 05/24/1996 05/23/1996 CT Colonography 11/30/2011 Colonoscopy 11/30/2011 FIT-DNA 11/30/2011 FIT 11/30/2011 FOBT 11/30/2011 Sigmoidoscopy 11/30/2011 [facility]-Colorectal Cancer Screening 11/30/2011 [facility]-Zoster Vaccines (1 of 2) 2016 [facility]-Lung Cancer Screening 08/22/2018 08/22/2017 [id number] Vaccine (1 - 20 24-25 season) 2023 [facility]-Pneumococcal Vaccine: 50 + Years (2 of 2 - PCV) 01/13/2024 01/12/2023 [facility]-Influenza Vaccine (#1) 2024 01/22/2019 [facility]-Obesity Intervention Completed 11/01/2024 HPV Vaccines Aged Out No longer eligi [...] on patient's age to complete this topic Procedures Procedure Name Priority Date/Time Associated Diagnosis Comments CT CHEST WO IV CONTRAST Routine 08/22/2017 12:22 PM EDT from Last 3 Months or Most Recently Relevant to Health Maintenance Results * CT Chest wo IV Contrast (08/22/2017 12:22 PM EDT) Anatomical Region Laterality Modality Chest Computed Tomogra phy Narrative 08/22/2017 1:23 PM EDT REQUESTING PHYSICIAN: CELESTE HAMILTON REASON FOR EXAMINATION/PROCEDURE: COPD EXAMINATION / PROCEDURE: CT CHEST WO CONTRAST Aug 22 2017 - 12:22; CLINICAL INDICATION: COPD TECHNIQUE: Multiple CT helical images were obtained from thora cic inlet through upper abdomen without administration of IV contrast. Total DLP (Dose-Length Product): 515.25. Please note: The reported value represents the total of one or more individual components during the CT acquisition on this date a nd at this time, and as such, the same value may appear in more than one CT report depending on the interpreting/reporting physicians. COMPARISON: None. FINDINGS: Mediastinum and Pleura: No enlarged mediastinal or hilar lymph nodes. No p leural or pericardial effusions. Left ventricular dilatation. Scattered small amount of calcifications within coronary arteries. Lungs: Smoking induced emphysema with paraseptal component and subpleural areas of bronchiolectasis. Concomitant bi lateral distal bronchial wall thickening and scattered mild groundglass opacities in the regions of bronchiolectasis as well as peribronchial distribution, mainly within bilateral upper lobes (right more than left) and to lesser extent right l kaushal base, image 66 of series 3. No discrete suspicious lung lesions. Upper Abdomen: No suspicious lesions in the partially visualized upper abdomen. Musculoskeletal: No suspicious lytic or sclerotic lesion. IMPRESSION: No discrete suspic ious lung lesions or enlarged lymph nodes. Left ventricular dilatation. Smoking induced emphysema with mild scattered bilateral groundglass opacities, with some predilection to the upper lobes. Main differential considerations would be spectrum of smoking induced mild desquamative interstitial pneumonia or less likely resolving atypical infection. CRITICAL RESULT: No. COMMUNICATION: Per this written report. Verified by: ROBERTO HERNANDEZ M.D. on Aug 22 2017 1:22P Bailey scribed by: MARIANA on Aug 22 2017 1:22P Dictated by: ROBERTO HERNANDEZ M.D. on Aug 22 2017 1:18P Procedure Note Roberto Hernandez - 07/13/2020 REQUESTING PHYSICIAN: CELESTE HAMILTON REASON FOR EXAMINATION/PROCEDURE: COPD EXAMINATION / PROCEDURE: CT CHEST WO CONTRAST Aug 22 2017 - 12:22; CLINICAL INDICATION: COPD TECHNIQUE: Multiple CT helical images were obtained from thora cic inlet through upper abdomen without administration of IV contrast. Total DLP (Dose-Length Product): 515.25. Please note: The reported value represents the total of one or more individual components during the CT acquisition on this date a nd at this time, and as such, the same value may appear in more than one CT report depending on the interpreting/reporting physicians. COMPARISON: None. FINDINGS: Mediastinum and Pleura: No enlarged mediastinal or hilar lymph nodes. No p leural or pericardial effusions. Left ventricular dilatation. Scattered small amount of calcifications within coronary arteries. Lungs: Smoking induced emphysema with paraseptal component and subpleural areas of bronchiolectasis. Concomitant bi lateral distal bronchial wall thickening and scattered mild groundglass opacities in the regions of bronchiolectasis as well as peribronchial distribution, mainly within bilateral upper lobes (right more than left) and to lesser extent right l kaushal base, image 66 of series 3. No discrete suspicious lung lesions. Upper Abdomen: No suspicious lesions in the partially visualized upper abdomen. Musculoskeletal: No suspicious lytic or sclerotic lesion. IMPRESSION: No discrete suspic ious lung lesions or enlarged lymph nodes. Left ventricular dilatation. Smoking induced emphysema with mild scattered bilateral groundglass opacities, with some predilection to the upper lobes. Main differential considerations would be spectrum of smoking induced mild desquamative interstitial pneumonia or less likely resolving atypical infection. CRITICAL RESULT: No. COMMUNICATION: Per this written report. Verified by: ROBERTO HERNANDEZ M.D. on Aug 22 2017 1:22P Bailey scribed by: MARIANA on Aug 22 2017 1:22P Dictated by: ROBERTO HERNNADEZ M.D. on Aug 22 2017 1:18P Celeste Hamilton MD [facility] [place] Final Result from Last 3 Months or Most Recently Relevant to Health Maintenance Insurance [place] [id number] [place] MEDICARE Care Teams Crop Farmers Relationship Specialty Start Date End Date Maged Sharma MD [address] [place] [id number] PCP - General 07/31/20
[2024-11-07 09:43] LABS: VBG HCO3 26.9 mmol/L (23-30); VBG PCO2 54.5 mmol/L (35-51); VBG PH 7.31 mmol/L (7.31-7.41); VBG PO2 46.7 mmol/L (28-40)
[2024-11-07 09:46] LABS: Hematocrit 49.2 % (42.0-52.0); Hemoglobin 15.3 g/dL (14.1-18.0); Immature Granulocytes % 0.5 %; Mean Corpuscular HGB Conc 31.1 g/dL (31.8-35.4); Mean Corpuscular Hemoglobin 27.4 pg (27.0-31.2); Mean Corpuscular Volume 88.0 fl (80-94); Nucleated Red Blood Cells % 0 %; Platelet Count 179 K/mm3 (142-424); Red Blood Count 5.59 M/mm3 (4.60-6.20); Red Cell Distribution Width-SD 49.3 fL; White Blood Count 13.2 K/mm3 (4.8-10.8)
[2024-11-07 09:49] LABS: Lactate Venous 4.8 mmol/L (0.4-2.0)
[2024-11-07 09:51] LABS: Alanine Aminotransferase 34 U/L (12-78); Albumin Level 4.5 g/dl (3.5-5.0); Albumin/Globulin Ratio 1.4 (1.1-1.8); Alkaline Phosphatase 57 U/L (38-126); Anion Gap 19.2 mEq/L (5-15); Aspartate Amino Transferase 38 U/L (17-59); Bilirubin,Total 0.6 mg/dl (0.2-1.3); Blood Urea Nitrogen 32 mg/dl (9-20); Calcium 9.7 mg/dl (8.4-10.2); Carbon Dioxide 26 mmol/L (22.0-30.0); Chloride 95 mmol/L (98-107); Creatinine Clearance Estimated 33 mL/min (50-200); Estimated Glomerular Filt Rate 16 ml/min (>60); GFR (African American) 19 ML/MIN (>60); Globulin 3.3 g/dL (1.3-3.2); Glucose 101 mg/dl (74-100); Potassium 4.2 mmoL/L (3.5-5.1); Sodium 136 mmol/L (136-145); Total Protein,Serum 7.8 g/dl (6.3-8.2)
[2024-11-07 09:53] LABS: Activated Partial Thrombo Time 28.1 seconds (22.8-30.6); INR 1.04 (0.9-1.1); Prothrombin Time 11.5 seconds (10.1-12.5)
[2024-11-07 09:57] LABS: Creatinine,Serum 4.00 mg/dl (0.66-1.25)
[2024-11-07 10:00] LABS: NT Pro Brain Natriuretic Pep. 98.1 pg/mL (0-125)
[2024-11-07] MEDS: ACETAMINOPHEN 1,000MG/100ML VIAL 1000 MG IV (10:04)
[2024-11-07] MEDS: ONDANSETRON 4MG/2ML VIAL 4 MG IV (10:04)
[2024-11-07] MEDS: LACTATED RINGERS 1000ML 1,000 ML 999 ML IV ×2 (10:05→11:08)
[2024-11-07 10:08] LABS: D-Dimer 0.78 ug/mL (0.0-0.5)
[2024-11-07 10:10] LABS: Troponin I < 0.01 ng/ml (0.00-0.034)
--- NOTE | 2024-11-07 10:15 | PC.NURSE ---
Addendum entered by Guera Melton RN 11/07/24 10:27: 1020 - Dr. Blanco @ bedside assessing pt. Original Note: Significant decrease in BP noted prior to cardene gtt being started. Dr. Blanco notified of this. Cuff repositioned and placed on left arm w/ BP still reading 60/40's. Manual BP obtained on R arm w/ reading of 80/40.
--- NOTE | 2024-11-07 10:22 | PC.NURSE ---
Pt to CT
--- NOTE | 2024-11-07 10:55 | PC.NURSE ---
Dr. Blanco @ bedside
--- NOTE | 2024-11-07 11:02 | PC.NURSE ---
Reaching out to [facility] for transfer
--- NOTE | 2024-11-07 11:04 | PC.NURSE ---
Called [facility] for possible transfer, power shared images as well.
[2024-11-07] MEDS: VANCOMYCIN HCL 2,000 MG in 0.9 % SODIUM CHLORIDE 250 ML 125 MG IV (11:19)
[2024-11-07] MEDS: CEFEPIME HCL 2 GM in 0.9 % SODIUM CHLORIDE 100 ML IV (11:22)
[2024-11-07] MEDS: METRONIDAZ/SOD CHL 500 MG/100 ML PIGGYBACK 100 MG IV (11:23)
--- NOTE | 2024-11-07 11:26 | PC.NURSE ---
Dr Blanco speaking w/ Dr. Branch @ [facility]
--- NOTE | 2024-11-07 11:29 | PC.NURSE ---
on phone with ricrado
--- NOTE | 2024-11-07 11:32 | PC.NURSE ---
Dr. Branch accepted pt to ICU bed
[2024-11-07 12:04] LABS: Creatine Kinase 54 U/L (55-170)
[2024-11-07] MEDS: NOREPINEPHRINE BITARTRATE/D5W 8 MG/250 ML PLAST..BAG 3.75 MG IV (12:19)
[2024-11-07 13:47] LABS: Reflex Lactic Add Lactic Reflex
[2024-11-07 14:21] LABS: Hepatitis C Ab Qual. W/ RFX NEGATIVE (Negative)
== END 2024-11-07 12:50 | disposition other institution (70) ==
PROVIDERS: Emergency Provider Student in an Organized Health Care Education/Training Program; PCP Family Medicine
DX: R09.02 Hypoxemia (principal); R57.8 Other shock; S09.90XA Unspecified injury of head, initial encounter; I95.1 Orthostatic hypotension; N17.9 Acute kidney failure, unspecified; J44.9 Chronic obstructive pulmonary disease, unspecified; F17.210 Nicotine dependence, cigarettes, uncomplicated; W19.XXXA Unspecified fall, initial encounter
CPT/HCPCS: 70450; 71045; 72125; 80053; 82550; 82803; 83880; 84484; 85025; 85378; 85610; 85730; 86803; 87040; 87389; 93005; 96361; 96365; 96367; 96375; 99285; 99291; J0131; J0692; J1836; J2405; J3373; J7050; J7120

== ENCOUNTER 2024-11-15 11:16 | Outpatient (CLI) | payer MEDICARE, SELFPAY ==
--- OUTSIDE RECORDS SUMMARY | 2017-08-03 04:50 | XMS_ITS | Continuity of Care Document ---
Author Organization [facility] Address [address] [address] Phone Care Team Providers Care Program Coordinator Executive Education Name Role Phone Ronald NANCE Sal ROSADO [...] route every day 81 MG - Active lamotrigine 200 mg tablet take 1 tablet by oral route 2 times every day 200 MG - Active potassium chloride ER 10 mEq tablet,extended release take 1 tablet by oral route every day with food 10 MEQ - Active VITAMIN D3 (unknown strength) 50,000 [...] route every day 100 MG - Active metoprolol tartrate 25 mg [...] Copied on Encounter Office/outpa tient visit,anthony, jaison [facility], [address] [place] [address], [id number], tel:[phone] [facility] Dyspnea (chief complaint)Ed dean [...] unspecified heart failure type 8 Ronald Huang. [address] [place] [address], [id number], . tel:[phone] Referring Provider: Sal Cardenas, [address] [place] [address], [id number]. tel:[phone] Family History Family Member Type Diagnosis Age At Onset Mother Problem (finding) coronary arterioscleros is Payers Payer name Insurance type Covered democrat ID Authorwadea carolnieabhi(s) Lonnie KRISTIAN [id number] Social History Type Description Quantity Date Captured [...]
--- OUTSIDE RECORDS SUMMARY | 2023-07-12 06:30 | XMS_ITS ---
Author Organization [facility] Address [address] [place] [address] [place] [id number] Care Team Providers Care Glass Beveller Name Role Phone Todd Alvarado Primary Care Provider Sera Allen Unavailable [phone] Allergies Allergen (clinical drug ingredient) Drug/Non Drug Allergy documented on EMR Reaction Allergy Type Onset Date Status acetaminophen / hydrocodone HYDROcodone-Acetamino phen Unknown Drug Allergy Active Results Component Value Reference Range Notes Glycohemoglobin A1c (in hous e) Reviewed date:07/13/2023 12:06:37 PM Interpretation:5.5 Performing Lab: Notes/Report: 5.5 glycohemoglobin 5.5% 5 - 6.5 % P-CBC with Diff plus Absolut e Counts Reviewed date:07/13/2023 12:06:36 PM Interpretation:plt 124 Performing Lab: Notes/Report: Test performed by [facility], [address] , [address], [place] [address] Jez Martines MD, Cloth Shader CLIA: [id number] WBC 7.3 3.8-11.5 K/uL Red Blood Cell Count (RBC) 5.29 4.20-5.70 M/mm 3 Hemoglobin (Hgb) 15.4 13.1-17.5 gm/dL Hematocrit (HCT) 45.9 39.0-51.0 % MCV 86.8 79.0-99.0 fL MCH 29.1 26.9-35.0 pg MCHC 33.6 30.4-34.8 g/dL RDW 41.6 38.2-53.0 fL Platelet Count 124 137-397 K/cumm Neutrophils Automated 68.0 41.0-77.0 % Lymphocytes Automated 23.8 14.0-48.0 % Monocytes Automated 6.2 4.0-13.0 % Eosinophils Automated 1.2 0.0-8.0 % Basophils Automated 0.4 0.0-1.5 % Immature Granulocyte Automated 0.4 0.0-1.0 % Absolute Neutrophil Count 4.9 2.0-8.2 K/uL Absolute Lymphocyte Count 1.7 0.9-3.6 K/uL Absolute Monocyte Count 0.5 0.3-1.0 K/uL Absolute Eosinophil Count 0.1 0.0-0.6 K/uL Absolute Basophil Count 0.0 0.0-0.1 K/uL Absolute Immature Granulocyte 0.03 0.00-0.03 K /uL P-Comprehensive Metabolic Pa jesika (CMP) Reviewed date:07/13/2023 12:06:36 PM Interpretation:Normal Performing Lab: Notes/Report: Test performed by [facility] [address] [place] [address] , [address], [place] [address] Jez Martines MD, Cloth Shader CLIA: [id number] Sodium 140 135-145 mEq/L Potassium 4.0 3.5-5.3 mEq/L Chloride 101 97-108 mEq/L CO2 28 22-32 mEq/L Glucose 99 65-99 mg/dL BUN 11 6-20 mg/dL Creatinine 1.29 0.70-1.30 mg/dL Calcium 9.5 8.6-10.4 mg/dL eGFR by Creatinine 65 >59 mL/min/1.73m2 Protein 7.2 6.0-8.3 g/dL Albumin 4.6 3.5-5.3 g/dL Alkaline Phosphatase 71 40-129 IU/L ALT (SGPT) 23 <5-55 IU/L AST (SGOT) 18 <5-46 IU/L Bilirubin, Total 0.3 <0.2-1.2 mg/dL A/G Ratio 1.8 1.1-2.5 mg/dL P-Lipid Panel Reviewed date:07/13/2023 12:06:37 PM Interpretation:trig 220, hdl 29 Performing Lab: Notes/Report: Test performed by [facility] [address] [facility] [facility] , [address], [place] [address] Jez Martines MD, Cloth Shader CLIA: [id number] Cholesterol 126 <200 mg/dL Triglycerides 220 <150 mg/dL HDL Cholesterol 29 >39 mg/dL Cholesterol / HDL Ratio 4.34 0.00-4.99 Ratio Non-HDL Cholesterol 97 <130 mg/dL LDL Cholesterol (Calculation) 53 <130 mg/dL LDL Cholesterol Levels* Less than 100 mg/dL Optimal 100 to 129 mg/dL Near Optimal/ Above Optimal 130 to 159 mg/dL Borderline High 160 to 189 mg/dL High 190 mg/dL and above Very High * Categories as recommended by the 2004 ATPIII guidelines LDL/HDL Ratio 1.8 <3.3 Ratio LDL Cholesterol Patient History Test Date: 07/12/2023 LDL Results: 53 Units: mg/dL % Change: - REASON FOR VISIT 6 months, Needs colonoscopy due to positive cologuard Medications Medication SIG (Take, Route, Frequency, Duration) Notes Start Date End Date Status Furosemide 40 MG 1/2 tab orally once a day Active Droplet [place] 32G X 4 MM USE DIRECTED; Duration: 90 Active Accu-Chek Guide - USE DIRECTED TO T EST TWO TIMES DAILY; Duration: 90 Active Omeprazole 40 MG 1 cap(s) Orally once daily; Duration: 90 days Active Metoprolol Succinate ER 50 MG 1/2 tab orally once a day Active [place] 32G X 4 MM as directed 09/09/2022 Active Farxiga 10 MG 1 tab(s) orally once a day; Duration: 30 day(s) 07/05/2021 Active metFORMIN HCl 500 MG 2 tab(s) orally 2 t imes a day; Duration: 90 days Active Glimepiride 4 MG 1 tab(s) orally once a day; Duration: 90 days Active Aspirin 81 MG 1 tab(s) orally once a day; Duration: 30 day(s) Active Tresiba FlexTouch 200 UNIT/ML 10 units subcutaneously once a day 08/12/2022 Active Losartan Potassium 100 MG 1/2 orally once a day Active Albuterol Sulfate HFA 108 (90 Base) MCG/ACT 2 puff(s) inhaled every 6 hours Active Venlafaxine HCl ER 37.5 MG 1 cap(s) orally once a day; Duration: 30 day(s) Active Spironolactone 50 MG 1 tablet Orally Onc e a day Active lamoTRIgine 200 MG 1 tab(s) orally 2 ti mes a day Active Rosuvastatin Calcium 20 MG 1 tablet Orally Once a day Active QUEtiapine Fumarate ER 150 MG 1 tab(s) orally once a day (in the evening); Duration: 30 day(s) Active Viibryd 40 MG 1 tab(s) orally q AM Active Jardiance 10 MG 1 tab(s) orally once a day (in the morning) 06/28/2021 Not-Taking Promethazine-DM 6.25-15 MG/5ML 5 ml orally every 6 hours, prn 08/04/2022 Not-Taking Breztri Aerosphere 160-9-4.8 MCG/ACT 2 puffs Inhalation Twice a day Active Gabapentin 600 MG 4 tablet 2 tabs am 2 tabs pm Active Klor-Con 10 10 MEQ TAKE 1 TABLET EVERY DAY; Duration: 90 Active Vital Signs Blood pressure systolic 130 mm Hg 07/12/19 24 Blood pressure diastolic 82 mm Hg 024 Heart Rate 89 /min 07/12/2023 Height 70 in 07/12/2023 Weight 263.8 lbs 07/12/2023 BMI 37.85 kg/m2 07/12/2023 Encounters Encounter Location Date Provider Diagnosis [facility] [address] [place] [address] [place] [id number] 07/12/2023 Sera Allen Bilateral impacted c erumen H61.23 ; Essential hypertension I10 ; Arteriosclerotic cardiovascular disease I25.10 ; Type 2 diabetes mellitus with other specified complication E11.69 ; Mixed hyperlipidemia E78.2 ; Lower extremity edema R60.0 and Pneumonia of both lower lobes due to infectious organism J18.9 Assessments Encounter Date Diagnosis (ICD Code) Assessment Notes Treatment Notes Treatment Clinical Notes Section Notes 07/12/2023 Bilateral impacted cerumen (ICD-10 - H61.23) Ears irrigated. 07/12/2023 Essential hypertension (ICD-10 - I10) 07/12/2023 Arteriosclerotic cardiovascular disease (ICD-10 - I25.10) 07/12/2023 Type 2 diabetes mellitus with other specified complication (ICD-10 - E11.69) 07/12/2023 Mixed hyperlipidemia (ICD-10 - E78.2) 07/12/2023 Lower extremity edema (ICD-10 - R60.0) Resolved. 07/12/2023 Pneumonia of both lower lobes due to infectious organism (ICD-10 - J18.9) Patient is much better. Uses oxygen prn at home. He has an appt scheduled with pulmonology. Plan Of Treatment Medication Medication Name Sig Start Date Stop Date Notes Modebo 160-9-4.8 MCG/ACT 2 puffs Inhalation Twice a day Treatment Notes Assessment Notes Bilateral impacted cerumen Ears irrigate d. Lower extremity edema Resolved. Pneumonia of both lower lobe s due to infectious organism Patient is much better. Uses oxygen prn at home. He has an appt scheduled with pulmonology. Next Appt Details Follow Up: with pulmonology and will reschedule his c-scope, Reason: Provider Name:Sera menezes, 11/22/2024 10:30:00 AM, [address] [place], [address], [place], [phone], Provider Name:Sera Nixon Duke menezes, 02/28/2025 09:00:00 AM, [address] [place], [address], [place], [phone], Progress Notes * Leigh BASSETTOB:[birth year] (58 yo M)Acc No.[id number]:07/12/2023 Progress Notes Patient: Milton ATKINS Provider: MARIANNA Starr :1965 A ge:57 Y S ex:Male Date:07/12/2023 Address:[place], [id number] Pcp:Todd Alvarado Subjective: * Chief Complaints: * 1 . 6 months. 2. Needs colonoscopy due to positive cologuard. * HPI: C ardiology: The patient is here for a check up on Hypertension and Diabetes. Pt states he doing good and denies any new concerns today. Pt is not fasting. 57 year old male presents with c/o Short of Breath w ith exertion. Denies : Chest Pain. D enies : Dizziness. D enies : Palpitations. * ROS: D ERMATOLOGY: no R eugenia. n o H lonnie. G ASTROENTEROLOGY: no N ausea. n o V omiting. n o D iarrhea.? U ROLOGY: no D ifficulty urinating. n o B lood in urine. * Medical History: C OPD, Enlarged heart, HBP, Depression, bipolar, Arthritis, T2DM. * Surgical History: B ilateral Knee 07/2006, Nerve Stimulator , Knee x6 , Back . * Family History: F ather: 67 yrs, pneumonia. M other: alive 63 yrs, diagnosed with Heart Disease.?2 son(s) - healthy. . * Social History: C URRENT TOBACCO USE: Yes . C affeine: yes, frequency:6 sodas/day. Marital Status: . Alcohol: no. * Medications: T aking Gabapentin 600 MG Tablet 4 tablet 2 tabs am 2 tabs pm , Taking Spironolactone 50 MG Tablet 1 tablet Orally Once a day , Taking Rosuvastatin Calcium 20 MG Tablet 1 tablet Orally Once a day , Taking lamoTRIgine 200 MG Tablet 1 tab(s) orally 2 times a day , Taking Viibryd 40 MG Tablet 1 tab(s) orally q AM , Taking QUEtiapine Fumarate ER 150 MG Tablet Extended Release 24 Hour 1 tab(s) orally once a day (in the evening) , Taking Venlafaxine HCl ER 37.5 MG Capsule Extended Release 24 Hour 1 cap(s) orally once a day , Taking Albuterol Sulfate HFA 108 (90 Base) MCG/ACT Aerosol Solution 2 puff(s) inhaled every 6 hours , Taking Tresiba FlexTouch 200 UNIT/ML Solution Pen-injector 10 units subcutaneously once a day , Taking Aspirin 81 MG Tablet Delayed Release 1 tab(s) orally once a day , Taking Losartan Potassium 100 MG Tablet 1/2 orally once a day , Taking [place] 32G X 4 MM Miscellaneous as directed , Taking Metoprolol Succinate ER 50 MG Tablet Extended Release 24 Hour 1/2 tab orally once a day , Taking metFORMIN HCl 500 MG Tablet 2 tab(s) orally 2 times a day , Taking Farxiga 10 MG Tablet 1 tab(s) orally once a day , Taking Glimepiride 4 MG Tablet 1 tab(s) orally once a day , Taking Accu-Chek Guide - Strip USE DIRECTED TO TEST TWO TIMES DAILY , Taking Omeprazole 40 MG Capsule Delayed Release 1 cap(s) Orally once daily , Taking Droplet [place] 32G X 4 MM Miscellaneous USE DIRECTED , Taking Furosemide 40 MG Tablet 1/2 tab orally once a day , Taking Klor-Con 10 10 MEQ Tablet Extended Release TAKE 1 TABLET EVERY DAY , Taking Breztri Aerosphere 160-9-4.8 MCG/ACT Aerosol 2 puffs Inhalation Twice a day , Not-Taking Promethazine-DM 6.25-15 MG/5ML Syrup 5 ml orally every 6 hours, prn , Not-Taking Jardiance 10 MG Tablet 1 tab(s) orally once a day (in the morning) , Discontinued Zithromax Z-Ross 250 MG Tablet 2 tablets on the first day, then 1 tablet daily for 4 days orally once a day , Discontinued Cefdinir 300 MG Capsule 1 cap(s) Orally Two times a day , Medication List reviewed and reconciled with the patient * Allergies: H YDROcodone-Acetaminophen. Objective: * Vitals: W t:263.8, Temp:98.1, BP:130/82, HR:89, O2 Sat:94% on RA, Nurse:KALA, Ht: 70, BMI:37.85. * Examination: G eneral Examination: General Appearance: N AD. H EENT: sclera and conjunctiva clear, PERRLA, Canals obstructed by cerumen, once irrigated, TM's normal, translucent. O ral cavity: n o lesions, mucosa moist and WNL, no erythema. N jennifer: s upple, no lymphadenopathy. C hest: n ormal shape and expansion. H eart: R SR. L ungs: c lear to auscultation. A bdomen: bowel sounds present, soft and nontender. N eurologic Exam:?Intact, gait normal. S kin: n ormal, no rash. P eripheral pulses: n ormal (2+) bilaterally. E xtremities: n o leg edema. Assessment: * Assessment: 1. B ilateral impacted cerumen - H61.23 (Primary) 2 . E ssential hypertension - I10 3 . A rteriosclerotic cardiovascular disease - I25.10 4 . T ype 2 diabetes mellitus with other specified complication - E11.69 5 . M ixed hyperlipidemia - E78.2 6 . L ower extremity edema - R60.0 ?7. P neumonia of both lower lobes due to infectious organism - J18.9 Plan: * Treatment: 2. E ssential hypertension L AB: P-CBC with Diff plus Absolute Counts (Collection Date & Time - 07/12/2023 10:25 AM) p lt 124 Value Reference Range A bsolute Basophil Count 0.0 0.0-0.1 - K/uL * A bsolute Eosinophil Count 0.1 0.0-0.6 - K/uL * A bsolute Immature Granulocyte 0.03 0.00-0.03 - K/uL * A bsolute Lymphocyte Count 1.7 0.9-3.6 - K/uL * A bsolute Monocyte Count 0.5 0.3-1.0 - K/uL * A bsolute Neutrophil Count 4.9 2.0-8.2 - K/uL * B asophils Automated 0.4 0.0-1.5 - % * E osinophils Automated 1.2 0.0-8.0 - % * H ematocrit (HCT) 45.9 39.0-51.0 - % * H emoglobin (Hgb) 15.4 13.1-17.5 - gm/dL * I mmature Granulocyte Automated 0.4 0.0-1.0 - % * L ymphocytes Automated 23.8 14.0-48.0 - % * M CH 29.1 26.9-35.0 - pg * M CHC 33.6 30.4-34.8 - g/dL * M CV 86.8 79.0-99.0 - fL * M onocytes Automated 6.2 4.0-13.0 - % * P latelet Count 124 L 137-397 - K/cumm * R ed Blood Cell Count (RBC) 5.29 4.20-5.70 - M/ mm3 * R DW 41.6 38.2-53.0 - fL * N eutrophils Automated 68.0 41.0-77.0 - % * W BC 7.3 3.8-11.5 - K/uL * Amara Orozco 07/13/2023 12:0 5:32 PM >See phone encounter ?LAB: P-Comprehensive Metabolic Panel (CMP) (Collection Date & Time - 07/12/2023 10:25 AM)?Normal* Value Reference Range A /G Ratio 1.8 1.1-2.5 - mg/dL * A lbumin 4.6 3.5-5.3 - g/dL * A lkaline Phosphatase 71 40-129 - IU/L * A LT (SGPT) 23 <5-55 - IU/L * A ST (SGOT) 18 <5-46 - IU/L * B ilirubin, Total 0.3 <0.2-1.2 - mg/dL * B UN 11 6-20 - mg/dL * C alcium 9.5 8.6-10.4 - mg/dL * C hloride 101 97-108 - mEq/L * C O2 28 22-32 - mEq/L * C reatinine 1.29 0.70-1.30 - mg/dL * G lucose 99 65-99 - mg/dL * P otassium 4.0 3.5-5.3 - mEq/L * S odium 140 135-145 - mEq/L * P rotein 7.2 6.0-8.3 - g/dL * e GFR by Creatinine 65 >59 - mL/min/1.73m2 * Amara Orozco 07/13/2023 12:0 5:32 PM >See phone encounter 3.?Type 2 diabetes mellitus with other specified complication?LAB: Glycohemoglobin A1c (in house) (Collection Date & Time - 07/12/2023)? 5.5* Value Reference Range g lycohemoglobin 5.5% 5 - 6.5 % * AlexandreaKyung Bee 07/12/2023 12: 06:20 PM > Amara Orozco 07/13/2023 12:05:32 PM >See phone encounter 4.?Mixed hyperlipidemia?LAB: P-Lipid Panel (Collection Date & Time - 07/12/2023 10:25 AM)?trig 220, hdl 29* Value Reference Range C holesterol / HDL Ratio 4.34 0.00-4.99 - Ratio * C holesterol 126 <200 - mg/dL * H DL Cholesterol 29 L >39 - mg/dL * L DL Cholesterol (Calculation) 53 <130 - mg/d L * L DL/HDL Ratio 1.8 <3.3 - Ratio * N on-HDL Cholesterol 97 <130 - mg/dL * T riglycerides 220 H <150 - mg/dL * Amara Orozco 07/13/2023 12:0 5:32 PM >See phone encounter 5.?Lower extremity edema? Notes: Resolved.??6.?Pneumonia of both lower lobes due to infectious organism? Continue Modebo Aerosol, 160-9-4.8 MCG/ACT, 2 puffs, Inhalation, Twice a day.? Notes: Patient is much better. Uses oxygen prn at home. He has an appt scheduled with pulmonology. ? * Procedure Codes: 9 47[address] [place], [address] CAPILLARY BLOOD DRAW, 22718 GLYCATED HEMOGLOBIN TEST, Modifiers: QW * Follow Up: w [facility] pulmonology and will reschedule his c-scope * Images: Billing Information: * Visit Code: 13437 Office Visit, Est Pt., Level 4. * Procedure Codes: [address] [place]. [address] CAPILLARY BLOOD DRAW. 22533 GLYCATED HEMOGLOBIN TEST. Modifiers: QW * Electronic signature of MARIANNA Benito on 11/15/2024 at 11:31 AM EDT Sign off status: Pending * Provider: MARIANNA Starr Date: 0 07/12/2023 Generated for Miguel love/Beckieg/eTransmitting on: 0 11/15/2024 11:31 AM EDT History and Physical Notes * HPI (History of Present Illness) Category Sub-Category Detail Notes Category Not es Cardiology Short of Breath with exertion Chest Pain Palpitations Dizziness Examination Category Sub-Category Detail Notes Category Not es General Examination HEENT: sclera and c onjunctiva clear, PERRLA, Canals obstructed by cerumen, once irrigated, TM's normal, translucent Heart: RSR Lungs: clear to auscultatio n Abdomen: bowel sounds present , soft and nontender Extremities: no leg edema General Appearance: NAD Skin: normal, no rash Neurologic Exam: Intact, gait normal Neck: supple, no lymphaden opathy Oral cavity: no lesions, mucosa m oist and WNL, no erythema Peripheral pulses: normal (2+) bilatera lly Chest: normal shape and exp ansion
--- OUTSIDE RECORDS SUMMARY | 2024-04-18 07:00 | XMS_ITS ---
Author Organization [facility] Address [address] [place] [phone] Care Team Providers Care Mines Inspector Name Role Phone Todd Alvarado Primary Care Provider Sera Allen Unavailable [phone] Allergies Allergen (clinical drug ingredient) Drug/Non Drug [...] healthcare? No Is patient an [facility] employee? N Is patient currently [...] daily; Duration: 90 days Active Droplet Pen [place] 32G X 4 MM USE DIRECTED; Duration: 90 Active Furosemide 40 MG 1/2 tab orally once a day Active Breztri Aerosphere 160-9-4.8 MCG/ACT 2 puffs Inhalation Twice a day Active Pen [place] 32G X 4 MM as directed 09/09/2022 [...] 04/18/2024 Encounters Encounter Location Date Provider Diagnosis [facility] [address] [place] [phone] 04/18/2024 Sera Allen Acute URI J06.9 and [...] repo rt test results, Reason: Provider Name:Sera menezes, 11/22/2024 10:30:00 AM, [address] [facility], [address], [place], [phone], Provider Name:Sera menezes, 02/28/2025 09:00:00 AM, [address] [facility], [address], [place], [phone], Progress Notes * Alona BASSETT:[birth year] (58 yo M)Acc No.[id number]:04/18/2024 Progress Notes Patient: Milton ATKINS Provider: MARIANNA Starr :1965 A ge:58 Y S ex:Male Date:04/18/2024 Address:[address], [place] Pcp:Todd Alvarado Subjective: * Chief Complaints: * [...] orally once a day , Taking Pen [place] 32G X 4 MM Miscellaneous as directed , Taking Metoprolol Succinate ER 50 MG Tablet Extended Release 24 Hour 1/2 tab orally once a day , Taking Farxiga 10 MG Tablet 1 tab(s) orally once a day , Taking Omeprazole 40 MG Capsule Delayed Release 1 cap(s) Orally once daily , Taking Droplet Pen [place] 32G X 4 MM Miscellaneous USE DIRECTED [...] CARLOSI - J06.9 (Primary) 2 . B rongrahamtis - J40 Plan: * Treatment: Value Reference [...] * Procedure Codes: 9 4760 [place], [address] CAPILLARY BLOOD DRAW, 51285 CBC WITH AUTO DIFF, 62367 COVID TEST IN HOUSE, Modifiers: QW * Follow Up: v ia phone to report test results * Images: Billing Information: * Visit Code: 26690 Office Visit, Est Pt., Level 3. * Procedure Codes: [address] [place]. [address] CAPILLARY BLOOD DRAW. 54591 CBC WITH AUTO DIFF. 75325 COVID TEST IN HOUSE. Modifiers: QW * Electronic signature of MARIANNA Benito on 11/15/2024 at 11:30 AM EDT Sign off status: Pending * Provider: MARIANNA Starr Date: 0 04/18/2024 Generated for Miguel love/Rodney/eTransmitting on: 0 11/15/2024 11:30 AM EDT History and Physical Notes * [...]
--- OUTSIDE RECORDS SUMMARY | 2024-08-28 11:45 | XMS_ITS ---
Author Organization [facility] Address [address] [place] [id number] Care Team Providers Care Taper/Finisher Name Role Phone Todd Alvarado Primary Care Provider [phone] Sera Allen Unavailable [phone] Allergies Allergen (clinical drug ingredient) Drug/Non Drug [...] Interpretation:Normal Performing Lab: Notes/Report: Test performed by [facility] [address] [facility] , [address], [place] [address] Jez Martines MD, Pegger CLIA: [id number] Sodium 143 135-145 mmol/L Potassium 4.3 3.5-5.3 [...] 26 Performing Lab: Notes/Report: Test performed by [facility], [address] , [address], [place] [address] Jez Martines MD, Pegger CLIA: [id number] Cholesterol 94 <200 mg/dL Triglycerides 204 <150 [...] Interpretation:Normal Performing Lab: Notes/Report: Test performed by [facility] [address] [place], [place] [address] [place] , [place] [address] Jez Martines MD, Pegger CLIA: [id number] TSH reflex to FT4 1.62 0.43-5.25 mU/L P-Microalbumin/Creatinine, R andom Urine Sample Reviewed date:08/30/2024 12:58:29 PM Interpretation:Normal Performing Lab: Notes/Report: Test performed by [facility] [address] [place] [address] , [place] [address] Jez Martines MD, Pegger CLIA: [id number] Albumin/Creatinine Ratio, Urine 4 0-30 ug/m g Microalbumin, Urine, Random 0.9 Creatinine, Urine 251.0 proBrain Natriuretic Peptide Reviewed date:08/30/2024 12:58:29 PM Interpretation:Normal Performing Lab: Notes/Report: Test performed by [facility], [address] , [address], [place] [address] Jez Martines MD, Pegger CLIA: [id number] proBrain Natriuretic Peptide 43 <300 pg/mL Please [...] DAILY DIRECTED; Duration: 90 Active Droplet Pen [place] 32G X 4 MM USE DIRECTED; Duration: [...] 1/2 orally once a day Active Pen [place] 32G X 4 MM as directed 09/09/2022 [...] Status Risk Notes Problem Obese class II (017260821789508 ) BMI 37.0-37.9, adult (Z68.37) Active confirmed Problem Morbid obesity (disorder) (663164636) Morbid (severe) obesity due to excess calories (E66.01) Active confirmed Problem Chronic respiratory failure (76648963) Chronic respiratory failure, unspecified whether with hypoxia or hypercapnia (J96.10) Active confirmed Problem Hypertensive heart failure (36244038) Hypertensive heart disease with heart failure (I11.0) Active confirmed Problem Congestive heart failure (45359888) Congestive heart failure, unspecified (I50.9) Active confirmed Problem COPD - Chronic obstructive pulmonary disease (98655204) Chronic obstructive pulmonary disease, unspecified COPD type (J44.9) Active confirmed Vital Signs Weight 262.6 lbs 08/28/2024 Blood pressure systolic 150 mm Hg 08/29/19 25 Blood pressure diastolic 90 mm Hg 025 Heart Rate 87 /min 08/28/2024 Height 70 in 08/28/2024 BMI 37.68 kg/m2 08/28/2024 Encounters Encounter Location Date Provider Diagnosis [facility] [address] [place] [id number] 08/28/2024 Sera Allen Intermittent diarrhe a R19.7 [...] 11/22/2024 10:30:00 AM, [address], [address], [place], [id number], Provider Name:Sera Wall y, 02/28/2025 09:00:00 AM, [address], [address], [place], [id number], Progress Notes * Leigh BASSETTOB:[birth year] (58 yo M)Acc No.[id number]:08/28/2024 Progress Notes Patient: Milton ATKINS Provider: MARIANNA Starr :1965 A ge:58 Y S ex:Male Date:08/28/2024 Address:[place], [facility] Pcp:Todd Alvarado Subjective: * Chief Complaints: * [...] orally once a day , Taking Pen [place] 32G X 4 MM Miscellaneous as directed , Taking Metoprolol Succinate ER 50 MG Tablet Extended Release 24 Hour 1/2 tab orally once a day , Taking Droplet Pen [place] 32G X 4 MM Miscellaneous USE DIRECTED [...] 08/28/2024 0 4:11:16 PM EDT >room B, niharika Lira Yvonne 08/30/2024 12:58:17 PM EDT > See phone encounter ?LAB: Glycohemoglobin A1c (in house) (Collection Date & Time - 08/28/2024)? 5.8* Value Reference Range g lycohemoglobin 5.8% 5 - 6.5 % * Kyung Lechuga Bee 08/28/2024 04 :48:36 PM EDT > Yvonne [...] Allen 08/28/2024 0 4:11:16 PM EDT >room , Yvonne Bee 08/30/2024 12:58:17 PM EDT > See phone encounter ?LAB: P-TSH reflex to FT4 (Collection Date & Time - 08/28/2024 03:25 PM)? Normal* Value Reference Range T SH reflex to FT4 1.62 0.43-5.25 - mU/L * Sera Allen 08/28/2024 0 4:11:16 PM EDT >room niharika Whitney 08/30/2024 12:58:17 PM EDT > See phone [...] Allen 08/28/2024 0 4:11:16 PM EDT >room niharika Nazario Whitney 08/30/2024 12:58:17 PM EDT > See phone encounter * Labs: * L ab: proBrain Natriuretic Peptide (Collection Date & Time - 08/28/2024 03:25 PM) N ormal Value Reference Range p roBrain Natriuretic Peptide 43 <300 - pg/mL * [facility], IT support 08/30/2024 05:30:08 : This order was created by the Interface. Yvonne Lira 08/30/2024 12:58:17 PM EDT > See phone encounter * Procedure Codes: G 2211 Complex e/[place], [address] CBC WITH AUTO DIFF, 35529 GLYCATED HEMOGLOBIN TEST, Modifiers: QW , G8950 PREHTN/HTN BP DOC INDCD F/U DOC, G8752 MOST RECENT SYSTOLIC BP < 140MM HG, G8754 MOST RECENT DIASTOLIC BP < 90MM HG, 3044F HG A1C LEVEL LT 7.0% * Follow Up: v ia phone to report test results * Images: Billing Information: * Visit Code: 84566 Office Visit, Est Pt., Level 4. * Procedure Codes: G2211 Complex e/[place]. [address] CBC WITH AUTO DIFF. 16999 GLYCATED HEMOGLOBIN TEST. Modifiers: QW G8950 PREHTN/HTN BP DOC INDCD F/U DOC. G8752 MOST RECENT SYSTOLIC BP < 140MM HG. G8754 MOST RECENT DIASTOLIC BP < 90MM HG. 3044F HG A1C LEVEL LT 7.0%. * Electronic signature of MARIANNA Benito on 11/15/2024 at 11:30 AM EDT Sign off status: Pending * Provider: MARIANNA Starr Date: 08/28/2024 Generated for Printi ng/Faxing/eTransmitting on: 0 11/15/2024 11:30 AM EDT History [...]
--- OUTSIDE RECORDS SUMMARY | 2024-11-01 12:20 | XMS_ITS | Encounter Summary ---
Author Organization [facility] Address [address] [place] [id number] Care Team Providers Care Assembler Dielectric Heater Name Role Phone Maged Sharma MD Primary Care Provider [phone] Reason for Visit * Reason Comments Consult [...] or 3b CKD (CMS/HCC) Guillaume Reeves MD [address] [place] [phone] Phone: tel: fax: Referral ID Status Reason Start Date Expiration Date V isits Requested Visits Authorized [id number] Closed Specialty Services Required 05/23/2024 11/22/2025 1 1 Encounter Details Date Type Department Care Team (Late st Contact Info) Description 11/01/2024 12:20 PM EDT Office Visit [facility] [address] [place] [phone] Guillaume Reeves MD [address] [place] [phone] Severe obesity (BMI 35.0-39.9) with comorbidity (CMS/HCC) (Primary Dx); Coronary artery disease involving [place]-c[place]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[place] heart without angina pectoris; Type 2 diabetes mellitus with chronic kidney disease, without long-term current use of insulin, unspecified CKD stage ([facility]); CKD stage 3a, GFR 45-59 ml/min ([facility]); Hypertensive chronic kidney disease with stage 1 [...] , CAUR , CALCIUMUR , PHOSUR , [id number] , [id number] , CREATUR MBD: No results found for: [...] , LH , PROLACTIN , TSH , [id number] , FREET4 , CORTISOL 05/13/24 - Creatinine [...] on Ct 2018 Impression & Plan: Milton Basstet is a 58 y.o. male with PMH [...] g/day goal RTC in 1 year Guillaume Leandro, MD Division of Nephrology [facility] Counseling Documentation: The patient was counseled regarding COUNSELING TOPICS: diagnostic results, prognosis, risks and benefit of treatment options, risk factor reductions, instructions for management, patient and family education, medication changes, diagnostic impressions, Heart healthy diet, regular physical activity and weight control, Avoidance of NSAIDs and other nephrotoxins, and terminal system operator nature of condition. Education provided was verbal [...] Expiration Date: 12/06/20[facility] ??? Urinalysis with reflex microscopic (Culture NOT Included) Standing Status: Future Expected Date: 11/01/2025 Expiration Date: 12/06/2025 [facility] ??? Vitamin D 25 Hydroxy Standing Status: Future Expected Date: 11/01/2025 Expiration Date: 12/06/2025 [facility] ??? PTH Intact Total Standing Status: Future Expected Date: 11/01/2025 Expiration Date: 12/06/2025 [facility] ??? Albumin-creatinine ratio, urine, random Standing Status: Future Expected Date: 11/01/2025 Expiration Date: 12/06/2025 [facility] Immediate ??? Protein, Random, Urine with Creatinine Standing Status: Future Expected Date: 11/01/2025 Expiration Date: 12/06/2025 [facility] patient [facility]: Immediate ??? Renal Function Panel, Plasma Standing Status: Future Expected Date: 11/01/2025 Expiration Date: 12/06/2025 Release to patient in [facility]: Immediate Problem List Items Addressed This Visit Severe obesity (BMI 35.0-39.9) with comorbidity ([facility]) - Primary Relevant Orders CBC W/O Differential Urinalysis with reflex microscopic (Culture NOT Included) Vitamin D 25 Hydroxy PTH Intact Total Albumin-creatinine ratio, urine, random Protein, Random, Urine with Creatinine Renal Function Panel, Plasma Coronary artery disease involving sen[place]-c[place]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[place] heart without angina pectoris Relevant Medications metoprolol tartrate (Lopressor) 25 MG tablet nitroglycerin (Nitrostat) 0.4 MG SL tablet prasugrel (Effient) 10 MG tablet Type 2 diabetes mellitus with chronic kidney disease, without long-term current use of insulin ([facility]) Relevant Medications losartan (Cozaar) 100 MG tablet [...] Plasma CKD stage 3a, GFR 45-59 ml/min ([facility]) Relevant Medications losartan (Cozaar) 100 MG tablet [...] ??? NECK SURGERY N/A Neck Surgery from [facility] ??? TOTAL KNEE ARTHROPLASTY Right Total Knee Replacement Right from [facility] ??? TOTAL KNEE ARTHROPLASTY Left Total Knee Replacement Left from [employer] [4] Family History Problem Relation Name Age [...] Description 01/24/2025 12:40 PM EST Office Visit [facility] [address] [place] [phone] Guillaume Reeves MD [address] [place] [phone] Scheduled Orders Name Type Priority Associated Diagnoses Orde r Schedule CBC W/O Differential Lab Routine Severe obesity (BMI 35.0-39.9) with comorbidity ([facility]) Type 2 diabetes mellitus with chronic kidney disease, without long-term current use of insulin, unspecified CKD stage ([facility]) Expected: 11/01/2025 (Approximate), Expires: 12/06/2025 Urinalysis with reflex microscopic (Culture NOT Included) Lab Routine Severe obesity (BMI 35.0-39.9) with comorbidity ([facility]) Type 2 diabetes mellitus with chronic kidney disease, without long-term current use of insulin, unspecified CKD stage ([facility]) Expected: 11/01/2025 (Approximate), Expires: 12/06/2025 Vitamin D 25 Hydroxy Lab Routine Severe obesity (BMI 35.0-39.9) with comorbidity ([facility]) Type 2 diabetes mellitus with chronic kidney disease, without long-term current use of insulin, unspecified CKD stage ([facility]) Expected: 11/01/2025 (Approximate), Expires: 12/06/2025 PTH Intact Total Lab Routine Severe obesity (BMI 35.0-39.9) with comorbidity ([facility]) Type 2 diabetes mellitus with chronic kidney disease, without long-term current use of insulin, unspecified CKD stage ([facility]) Expected: 11/01/2025 (Approximate), Expires: 12/06/2025 Albumin-creatinine ratio, urine, random Lab Routine Severe obesity (BMI 35.0-39.9) with comorbidity ([facility]) Type 2 diabetes mellitus with chronic kidney disease, without long-term current use of insulin, unspecified CKD stage ([facility]) Expected: 11/01/2025 (Approximate), Expires: 12/06/2025 Protein, Random, Urine with Creatinine Lab Routine Severe obesity (BMI 35.0-39.9) with comorbidity ([facility]) Type 2 diabetes mellitus with chronic kidney disease, without long-term current use of insulin, unspecified CKD stage ([facility]) Expected: 11/01/2025 (Approximate), Expires: 12/06/2025 Renal Function Panel, Plasma Lab Routine Severe obesity (BMI 35.0-39.9) with comorbidity ([facility]) Type 2 diabetes mellitus with chronic kidney disease, without long-term current use of insulin, unspecified CKD stage ([facility]) Expected: 11/01/2025 (Approximate), Expires: 12/06/2025 documented as of this encounter Visit Diagnoses Diagnosis Severe obesity (BMI 35.0-39.9) with comorbidity ([facility])- Primary Coronary artery disease involving [place]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[place] heart without angina 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, without long-term current use of insulin, unspecified CKD stage ([facility]) CKD stage 3a, GFR 45-59 ml/min ([facility]) Hypertensive chronic kidney disease with stage 1 through stage 4 chronic kidney disease, or unspecified chronic kidney disease Chronic kidney disease-mineral and bone disorder (CKD-MBD) documented in this encounter Additional Health Concerns Assessment Noted Time A Body Mass Index follow-up plan has been documented for the patient 11/01/2024 1:08 PM EDT documented as of this encounter Care Teams Assembler Dielectric Heater Relationship Specialty Start Date End Date Maged Sharma MD [facility] [place] [address] PCP - General 07/31/20 documented as of this encounter
--- OUTSIDE RECORDS SUMMARY | 2024-11-07 14:10 | XMS_ITS | Encounter Summary ---
Author Organization [facility] Address [address] [place] [address] Care Team Providers Care Woodyard Crane Operator Name Role Phone Provider, No Known Primary Care Provider Unavail able Reason for Referral * MRI/CAT/PET Scan (Routine) - Pending Review Specialty Diagnoses / Procedures Referred By Contac t Referred To Contact Procedures CT Outside Head Films, Radiant Outside Referral ID Status Reason Start Date Expiration Date V isits Requested Visits Authorized [id number] Pending Review 11/07/2024 02/06/2026 1 1 * MRI/CAT/PET Scan (Routine) - Pending Review Specialty Diagnoses / Procedures Referred By Contac t Referred To Contact Procedures CT Outside Neck Films, Radiant Outside Referral ID Status Reason Start Date Expiration Date V isits Requested Visits Authorized [id number] Pending Review 11/07/2024 02/06/2026 1 1 * Diagnostic Imaging (Routine) - Closed Specialty Diagnoses / Procedures Referred By Contac t Referred To Contact Procedures XR Outside Chest Films, Radiant Outside Referral ID Status Reason Start Date Expiration Date Visits Re quested Visits Authorized [id number] Closed 11/07/2024 02/06/2026 1 1 Reason for Visit * Auth/Cert Specialty Diagnoses / Procedures Referred By Contac t Referred To Contact Diagnoses Syncope (Non traumatic shock) Referral ID Status Reason Start Date Expiration Date Visits Re quested Visits Authorized [id number] 1 1 Encounter Details Date Type Department Care Team (Late st Contact Info) Description 11/07/2024 2:10 PM EDT - 11/11/2024 11:27 AM EDT Hospital Encounter [facility] [address] [place] [phone] Alexsander Branch MD [address] [place] [address] Israel Jimenez MD [address] [place] [address] Yonatan Lebron MD [address] [facility] [address] [place] [address] Discharge Disposition: Home or Self Care Social [...] or training? Not on file Preferred Language Uzbek 11/08/2024 Sex and Gender Information Value Date [...] from the original note were not included. [facility] Medicine Services DISCHARGE SUMMARY Patient Name: Milton Bassett : 1965 Date of Admission: 11/07/2024 2:10 PM Date of Discharge: 11/11/24 Primary Care Physician: Provider, No Known Consults No orders found from 10/09/2024 to 11/08/2024. Hospital Course Presenting Problem: hypotension Active Hospital Problems Diagnosis POA Type 2 diabetes mellitus [E11.9] Unknown Tobacco use [Z72.0] Unknown CAD [I25.10] Unknown GERD [K21.9] Unknown Bipolar disorder [F31.9] Unknown CKD [N18.9] Unknown COPD [J44.9] Unknown Resolved Hospital Problems Diagnosis Date Resolved POA Syncope [R55] 11/11/2024 Yes Syncope and collapse [R55] 11/07/2024 Unknown Hospital Course: Milton Bassett is a 58 y.o. male with history of HTN, CAD with prior stent, hyperlipidemia, DM2, CHF (data deficient), COPD on 2 L supplemental oxygen chronically, CKD, bipolar disorder and prior neck surgery who presented to this hospital as a transfer from [facility] after having several syncopal events on [...] had 2 additional episodes. Hewas taken to [facility] where he was noted to have high [...] -- -- -- -- -- 14.5 Lab 11/11/24 0514 11/10/24 0413 11/09/24 0321 11/08/24 1621 11/08/24 0310 11/07/24 1508 11/07/24 1508 [...] values in this interval not displayed. Lab 11/11/24 0511/10/2441211/09/2432011/08/24 0310 11/07/24 1508 TOTAL PROTEIN 6.0 6.5 6.6 7.0 [...] Date/Time Respiratory Panel PCR w/COVID-19(SARS-CoV-2) WALT/RADHA/YANI/PAD/COR/ANISHA In-House, CUSTOMER SUPPORT ASSOCIATE Swab in UTM/VTM, 2 HR TAT - Swab, Nasopharynx [[id number]] (Normal) Collected: 11/08/24 1831 Lab Status: Final [...] bacterial infection. Respiratory Culture - Sputum, Cough [[id number]] Collected: 11/07/24 1731 Lab Status: Final result Specimen: Sputum from Cough Updated: 11/09/24 1230 Respiratory Culture Scant growth (1+) Normal respiratory candace. No S. aureus or Pseudomonas aeruginosa detected. Final report. Gram Stain Moderate (3+) WBCs per low power field Rare (1+) Epithelial cells per low power field No organisms seen Blood Culture - Blood, Arm, Left [[id number]] (Normal) Collected: 11/07/24 1729 Lab Status: Preliminary result Specimen: Blood from Arm, Left Updated: 11/10/24 1800 Blood Culture No growth at 3 days Blood Culture - Blood, Hand, Left [[id number]] (Normal) Collected: 11/07/24 1729 Lab Status: Preliminary result Specimen: Blood from Hand, Left Updated: 11/10/24 1800 Blood Culture No growth at 3 days MRSA Screen, PCR (Inpatient) - Swab, Nares [[id number]] (Normal) Collected: 11/07/24 1719 Lab Status: Final result Specimen: Swab from [...] MD 11/10/2024 9:32 AM EDT Workstation ID: [id number] CT Chest Without Contrast Diagnostic Result Date: [...] MD 11/09/2024 8:16 AM EDT Workstation ID: [id number] NM Lung Ventilation Perfusion Result Date: 11/09/2024 [...] MD 11/09/2024 12:02 AM EDT Workstation ID: [id number] Duplex Venous Lower Extremity - Bilateral CAR [...] MD 11/08/2024 9:45 AM EDT Workstation ID: [id number] XR Chest 1 View Result Date: 11/07/2024 [...] MD 11/07/2024 3:13 PM EDT Workstation ID: [id number] CT Outside Head Result Date: 11/07/2024 This [...] Bilateral CAR 11/08/2024 4:46 PM Interpretation Summary Normal bilateral lower extremity venous duplex scan. Results for orders placed during the hospital encounter of 11/07/24 Duplex Venous Lower Extremity - Bilateral CAR 11/08/2024 4:46 PM Interpretation Summary Normal bilateral lower extremity venous duplex scan. [...] Commonly known as: ALDACTONE Allergies Allergen Reactions Hydrocodone-Acetaminophen Hives Discharge Disposition: Home or Self Care Diet: Hospital: Diet Order Procedures Diet: Cardiac, Diabetic; Healthy Heart (2-3 Na+); Consistent Carbohydrate; Fluid Consistency: Thin (IDDSI 0) Standing Status: Standing Number of Occurrences: 1 Diets:: Cardiac Diets:: Diabetic Cardiac Diet:: Healthy Heart (2-3 Na+) Diabetic Diet:: Consistent Carbohydrate Fluid Consistency:: Thin (IDDSI 0) Activity: Restrictions or Other Recommendations: CODE STATUS: Code Status and Medical Interventions: CPR (Attempt to Resuscitate); Full Support Ordered at: 11/07/24 7766 Code Status (Patient has no pulse and [...] Discharge Follow-up with Specialty: FOLLOW UP WITH NEPHROLOGY DR REEVES IN 3 MONTHS As directed Specialty: FOLLOW UP WITH [facility] DR REEVES IN 3 MONTHS Yonatan Lebron MD 11/11/24 Time Spent on Discharge: I spent 35 minutes on this discharge activity which included: [id number] with the patient, reviewing the data in the system, coordination of the care with the nursing staff as well as consultants, documentation, and entering orders. documented in this encounter Discharge Instructions * Appointments* Viky Torrez - 11/11/2024 9:54 AM EDT Guillaume Reeves MD [address] [place] [phone] Phone: tel: Appointment: Dr Reeves's office will call you with appointment date and time. * Attachments The following attachments cannot be sent through Care Everywhere. * Amoxicillin; Clavulanic Acid Tablets (Uzbek) * Syncope Adult (Uzbek) documented in this encounter Medications at Time [...] from the original note were not included. [facility] Medicine Services PROGRESS NOTE Patient Name: [...] -- -- -- -- 22* 22* Lab 11/10/2441211/09/2432011/08/24 16211/08/24 03111/07/24 1508 11/07/24 1500 SODIUM 141 134* 135* [...] -- -- -- -- -- 5.89* Lab 11/10/2441211/09/2432011/08/24309 11/07/24 1508 TOTAL PROTEIN 6.5 6.6 7.0 [...] MD 11/09/2024 8:16 AM EDT Workstation ID: [id number] NM Lung Ventilation Perfusion Result Date: 11/09/2024 [...] pulmonary embolism Electronically Signed: Acosta Maxwell MD 512:02 AM EDT Workstation ID: [id number] Duplex Venous Lower Extremity - Bilateral CAR [...] Grider MD 11/08/2024 9:45AM EDT Workstation ID: [id number] Results for orders placed during the hospital [...] to this hospital as a transfer from [facility] after having several syncopal events on [...] had 2 additional episodes. Hewas taken to [facility] where he was noted to have high [...] reviewed Tobacco abuse - nicotine replacement - counseling case manager cessation Expected Discharge Location and Transportation: home Expected Discharge Expected discharge date/ time has not been documented. VTE Prophylaxis: Pharmacologic VTE prophylaxis orders are present. AM-PAC 6 Clicks Score (PT): 24 (11/09/24 1954) CODE STATUS: Code Status and Medical Interventions: CPR (Attempt to Resuscitate); Full Support Ordered at: 11/07/24 1444 Code Status (Patient has no pulse and [...] bipolar disorder, prior neck surgery, transferred from [facility] after having several syncopal events. No preceding [...] portions of this note were completed with [email or web address] - [employer] voice recognition program. * Israel Jimenez MD [...] bipolar disorder, prior neck surgery, transferred from [facility] after having several syncopal events. No preceding [...] portions of this note were completed with [email or web address] - a voice recognition program. documented in [...] bipolar disorder, prior neck surgery, transferred from [facility] after having several syncopal events this morning. Patient was at home this morning and had previously been in his normal state of health. Patient had a sudden onset of syncopal event after becoming dizzy and then falling and possibly hitting his head on a desk. His was home and found him. He regained consciousness but had 2 additional episodes. He was taken to [facility]. While there he had a very high [...] bipolar disorder, prior neck surgery, transferred from [facility] after having several syncopal events. No preceding [...] portions of this note were completed with [email or web address] - a voice recognition program. documented in [...] Goal Outcome Evaluation: Pt transferred to from [facility]. Pt receiving IV abx as ordered. No [...] 6 L NC after coming back from [place] and CT, hiflo ordered -lactic 1.7, respiratory [...] no change Outcome Evaluation: Pt arrived from [facility] on 0.02 of levophed after experiencing mutliple episodes of syncope at home. CT head done at outside [facility]. Levophed on hold shortly after arrival. Blood sugar 50 on arrival. 240 ml OJ given, pt BS remained 51. After 2 more OJs pt came up to 73. Back down to 50s after a couple house. Pt ate 100% dinner tray and d50 given. Last FSBG 140s. [id number] on hold for now. Pt alert and [...] 11/08/2024 11:17 AM EDT Discharge Planning Assessment [facility] Patient Name: Milton Bassett Today's Date: 11/08/2024 Admit Date: 11/07/2024 Plan: Home Discharge Needs Assessment Row Name 11/08/24 1110 Living Environment People in Home spouse Current Living Arrangements home Primary Care Provided by self Provides Primary Care For no one Family Caregiver if Needed spouse Family Caregiver Names Laura Bassett (Spouse) [phone] Quality of Family Relationships supportive Able to [...] bedside. He lives with his Spouse in [facility] [facility]. He is independent with ADL's and uses a BP cuff, nebulizer, POX, and 2L Oxygen through [facility] in [place]. He does not use home health services. His preferred Pharmacy is [facility] in [place]. His PCP is Sera Allen and he has [employer] Medicare insurance. Discharge plan is home. CM will continue to follow for discharge needs. Final Discharge Disposition Code 01 - home or self-care Continued Care and Services - Admitted Since 11/07/2024 No active coordination exists. Demographic Summary Row Name 11/08/24 1110 General Information Arrived From home Referral Source admission list Reason for Consult discharge planning Preferred Language Uzbek Contact Information Permission Granted to Share Info With special education case managerbroadcast operations manager Status Row Name 11/08/24 1110 Functional Status, IADL Medications independent Meal Preparation independent Housekeeping independent Laundry independent Shopping independent Mental Status General Appearance WDL WDL Psychosocial No documentation. Abuse/Neglect No documentation. Legal No documentation. Substance Abuse No documentation. Patient Forms No documentation. Floridalma Childers RN documented in this encounter Plan of Treatment Pending Results Name Type Priority Associated Diagnoses Date /Time Metanephrines, Pheochromocytoma Evaluation - Urine, Clean Catch Lab Routine 11/07/2024 6: 12 PM EDT [facility] Direct Assay Lab Routine 2024 5:29 PM EDT Scheduled Orders Name Type Priority Associated Diagnoses Orde r Schedule Metanephrines, Pheochromocytoma Evaluation - Urine, Clean Catch Lab Routine Once for 1 Occurrences starting 11/07/2024 until 11/07/2024 [facility] Direct Assay Lab Routine Once f or 1 Occurrences starting 11/07/2024 until 11/07/2024 documented as of this encounter Procedures Procedure Name Priority Date/Time Associated Diagnosis Comments POCT GLUCOSE FINGERSTICK Routine 11/11/2024 7:55 AM EDT CBC (NO DIFF) Routine 11/11/2024 5:14 AM EDT COMPREHENSIVE METABOLIC PANEL Routine 11/11/2024 5:14 AM EDT POCT GLUCOSE FINGERSTICK Routine 11/10/2024 8:13 PM EDT SCANNED - TELEMETRY 11/10/2024 7 :42 PM EDT POCT GLUCOSE FINGERSTICK Routine 11/10/2024 4:54 PM EDT POCT GLUCOSE FINGERSTICK Routine 11/10/2024 11:41 AM EDT POCT GLUCOSE FINGERSTICK Routine 11/10/2024 7:49 AM EDT CBC (NO DIFF) Routine 11/10/2024 4:13 AM EDT COMPREHENSIVE METABOLIC PANEL Routine 11/10/2024 4:13 AM EDT XR CHEST 1 VW Routine 11/10/2024 3:00 AM EDT POCT GLUCOSE FINGERSTICK Routine 11/09/2024 7:37 PM EDT POCT GLUCOSE FINGERSTICK Routine 11/09/2024 4:45 PM EDT POCT GLUCOSE FINGERSTICK Routine 11/09/2024 12:16 PM EDT SCANNED - TELEMETRY 11/09/2024 7 :31 AM EDT POCT GLUCOSE FINGERSTICK Routine 11/09/2024 7:21 AM EDT CBC (NO DIFF) Routine 11/09/2024 3:21 AM EDT PHOSPHORUS Routine 11/09/2024 3:21 AM EDT MAGNESIUM Routine 11/09/2024 3:21 AM EDT COMPREHENSIVE METABOLIC PANEL Routine 11/09/2024 3:21 AM EDT POCT GLUCOSE FINGERSTICK Routine 11/08/2024 7:55 PM EDT RESPIRATORY PANEL PCR W/ COVID-19 (SARS-COV-2), CUSTOMER SUPPORT ASSOCIATE SWAB IN UTM/VTP, 2 HR TAT Routine 11/08/2024 6:31 PM EDT LACTIC ACID, PLASMA Routine 11/08/2024 6 :28 PM EDT POCT GLUCOSE FINGERSTICK Routine 11/08/2024 6:[address] CHEST WO CONTRAST DIAGNOSTIC Routine 11/08/2024 5:55 PM EDT NM LUNG VENTILATION PERFUSION STAT 11/08/2024 5:42 PM EDT DUPLEX VENOUS LOWER EXTREMITY BILATERAL CAR STAT 11/08/2024 4:39 PM EDT BASIC METABOLIC PANEL STAT 11/08/2024 4:21 PM EDT SCANNED - TELEMETRY 11/08/2024 2 :29 PM EDT POCT GLUCOSE FINGERSTICK Routine 11/08/2024 11:52 AM EDT XR CHEST 1 VW STAT 11/08/2024 9:34 AM EDT POCT GLUCOSE FINGERSTICK Routine 11/08/2024 7:18 AM EDT CBC WITH AUTO DIFFERENTIAL [...] :52 PM EDT POCT GLUCOSE FINGERSTICK Timed 11/07/2024 8:02 PM EDT POCT GLUCOSE FINGERSTICK Timed 11/07/2024 7:09 PM EDT URINALYSIS, MICROSCOPIC ONLY Routine 11/07/2024 [...] 6:12 PM EDT POCT GLUCOSE FINGERSTICK Timed 11/07/2024 6:07 PM EDT POCT GLUCOSE FINGERSTICK Timed 11/07/2024 5:37 PM EDT RESPIRATORY CULTURE Routine 11/07/2024 5 :31 PM EDT LACTIC ACID, REFLEX STAT 11/07/2024 5 :30 PM EDT HIGH SENSITIVITIY TROPONIN T 1HR Timed 11/07/2024 5:29 PM EDT METANEPHRINES, FRAC. FREE, PLASMA Routine 11/07/2024 5:29 PM EDT ALDOSTERONE Routine 11/07/2024 5:29 PM EDT BLOOD CULTURE STAT 11/07/2024 5:29 PM EDT BLOOD CULTURE STAT 11/07/2024 5:29 PM EDT MRSA DNA PROBE Routine 11/07/2024 5:19 PM EDT POCT GLUCOSE FINGERSTICK Routine 11/07/2024 4:55 PM EDT ECHO COMPLETE W/ DOPPLER AND COLOR FLOW STAT 11/07/2024 3:51 PM EDT ECG 12-LEAD STAT 11/07/2024 3:43 PM EDT POCT GLUCOSE FINGERSTICK Routine 11/07/2024 3:38 PM EDT WOUND OSTOMY EVAL AND TREAT Routine 11/07/2024 3:19 PM EDT POCT GLUCOSE FINGERSTICK Routine 11/07/2024 3:10 PM EDT PROCALCITONIN STAT 11/07/2024 3:08 [...] 2:55 PM EDT POCT GLUCOSE FINGERSTICK Routine 11/07/2024 2:38 PM EDT documented in this encounter Results * POC Glucose 4x Daily Before Meals & at Bedtime (11/11/2024 7:55 AM EDT) Glucose 72 70 - 130 mg/dL 11/11/2024 8:01 AM EDT [facility] Comment:Serial Number: [id number]: [id number] Blood 11/11/2024 7:55 AM EDT 11/11/2024 8:01 AM EDT Israel Jimenez MD POINT OF CARE TEST ORDERABLE S Final Result [facility]
[address] [place] [address], * (ABNORMAL) CBC (No Diff) (11/11/2024 5:14 AM EDT) WBC 7.92 3.40 - 10.80 10*3/mm3 11/11/2024 5:48 AM EDT [facility] RBC 4.69 4.14 - 5.80 10*6/mm3 11/11/2024 5:48 AM EDT [facility] Hemoglobin 13.4 13.0 - 17.7 g/dL 11/11/2024 5:48 AM EDT [facility] Hematocrit 42.9 37.5 - 51.0 % 11/11/2024 5:48 AM EDT [facility] MCV 91.5 79.0 - 97.0 fL 11/11/2024 5:48 AM EDT [facility] MCH 28.6 26.6 - 33.0 pg 11/11/2024 5:48 AM EDT [facility] MCHC 31.2(L) 31.5 - 35.7 g/dL 11/11/2024 5:48 AM EDT [facility] RDW 14.9 12.3 - 15.4 % 11/11/2024 5:48 AM EDT [facility] RDW-SD 50.1 37.0 - 54.0 fl 11/11/2024 5:48 AM EDT [facility] MPV 11.7 6.0 - 12.0 fL 11/11/2024 5:48 AM EDT [facility] Platelets 111(L) 140 - 450 10*3/mm3 11/11/2024 5:48 AM EDT [facility] Blood Venipuncture / Unknown 11/11/2024 5:14 AM EDT 11/11/2024 5:36 AM EDT us Israel Jimenez MD LAB BLOOD ORDERABLES Final R esult [facility]
[address] [place] [address], * (ABNORMAL) Comprehensive Metabolic Panel (11/11/2024 5:14 AM EDT) Glucose 102(H) 65 - 99 mg/dL 11/11/2024 6:03 AM EDT [facility] BUN 19.4 6.0 - 20.0 mg/dL 11/11/2024 6:03 AM EDT [facility] Creatinine 1.38(H) 0.76 - 1.27 mg/dL 11/11/2024 6:03 AM EDT [facility] Sodium 142 136 - 145 mmol/L 11/11/2024 6:03 AM EDT [facility] Potassium 4.1 3.5 - 5.2 mmol/L 11/11/2024 6:03 AM [facility] Comment:Slight hemolysis det ected by analyzer. Result may be falsely elevated. Chloride 104 98 - 107 mmol/L 11/11/2024 6:03 AM [facility] CO2 28.0 22.0 - 29.0 mmol/L 11/11/2024 6:03 AM [facility] Calcium 8.7 8.6 - 10.5 mg/dL 11/11/2024 6:03 AM [facility] Total Protein 6.0 6.0 - 8.5 g/dL 11/11/2024 6:03 AM [facility] Albumin 3.5 3.5 - 5.2 g/dL 11/11/2024 6:03 AM [facility] ALT (SGPT) 41 1 - 41 U/L 11/11/2024 6:03 AM [facility] AST (SGOT) 35 1 - 40 U/L 11/11/2024 6:03 AM [facility] Alkaline Phosphatase 42 39 - 117 U/L 11/11/2024 6:03 AM [facility] Total Bilirubin 0.3 0.0 - 1.2 mg/dL 11/11/2024 6:03 AM [facility] Globulin 2.5 gm/dL 11/11/2024 6:03 AM [facility] Comment:Calculated Result A/G Ratio 1.4 g/dL 11/11/2024 6:03 AM [facility] BUN/Creatinine Ratio 14.1 7.0 - 25.0 11/11/2024 6:03 AM [facility] Anion Gap 10.0 5.0 - 15.0 mmol/L 11/11/2024 6:03 AM [facility] eGFR 59.6(L) >60.0 mL/min/1.7 3 11/11/2024 6:03 AM [facility] Blood Venipuncture / Unknown 11/11/2024 5:14 AM EDT 11/11/2024 5:36 AM EDT Narrative [facility] - 11/11/2024 6:03 AM EDT [...] ORDERABLES Final R esult Performing Organization Address City/[facility] Co de Phone Number [facility]
[address] [place] [address], * (ABNORMAL) POC Glucose Once (11/10/2024 8:13 PM EDT) Glucose 166(H) 70 - 130 mg/dL 11/10/2024 8:16 PM EDT [facility] Comment:Serial Number: [id number]: [id number] Blood 11/10/2024 8:13 PM EDT 11/10/2024 8:16 PM EDT Yonatan Lebron MD POINT OF CARE TEST ORDERABLES Final Result Performing Organization Address [facility] Co de Phone Number [facility]
[address] [place] [address], * Telemetry Scan (11/10/2024 7:42 PM EDT) [facility] Onbase ECG ORDERABLES Final Result * (ABNORMAL) POC Glucose Once (11/10/2024 4:54 PM EDT) Glucose 233(H) 70 - 130 mg/dL 11/10/2024 4:57 PM EDT [facility] Comment:Serial Number: [id number]: [id number] Blood 11/10/2024 4:54 PM EDT 11/10/2024 4:57 PM EDT Yonatan Lebron MD POINT OF CARE TEST ORDERABLES Final Result Performing Organization Address [facility] de Phone Number [facility]
[address] [place] [address], * (ABNORMAL) POC Glucose 4x Daily Before Meals & at Bedtime (11/10/2024 11:41 AM EDT) Glucose 174(H) 70 - 130 mg/dL 11/10/2024 11:51 AM EDT [facility] Comment:Serial Number: [id number]: [id number] Blood 11/10/2024 11:4 1 AM EDT 11/10/2024 11:51 AM EDT Israel Jimenez MD POINT OF CARE TEST ORDERABLE S Final Result Performing Organization Address [facility] de Phone Number [facility]
[address] [place] [address], * (ABNORMAL) POC Glucose 4x Daily Before Meals & at Bedtime (11/10/2024 7:49 AM EDT) Glucose 133(H) 70 - 130 mg/dL 11/10/2024 7:52 AM EDT [facility] Comment:Serial Number: [id number]: [id number] Nova Comment 1 Notified Patients RN 11/10/2024 7:52 AM EDT [facility] Blood 11/10/2024 7:49 AM EDT 11/10/2024 7:52 AM EDT us Israel Jimenez MD POINT OF CARE TEST ORDERABLE S Final Result [facility]
[address] [place] [address], * (ABNORMAL) CBC (No Diff) (11/10/2024 4:13 AM EDT) WBC 9.12 3.40 - 10.80 10*3/mm3 11/10/2024 4:59 AM EDT [facility] RBC 4.72 4.14 - 5.80 10*6/mm3 11/10/2024 4:59 AM EDT [facility] Hemoglobin 13.4 13.0 - 17.7 g/dL 11/10/2024 4:59 AM EDT [facility] Hematocrit 42.4 37.5 - 51.0 % 11/10/2024 4:59 AM EDT [facility] MCV 89.8 79.0 - 97.0 fL 11/10/2024 4:59 AM EDT [facility] MCH 28.4 26.6 - 33.0 pg 11/10/2024 4:59 AM EDT [facility] MCHC 31.6 31.5 - 35.7 g/dL 11/10/2024 4:59 AM EDT [facility] RDW 15.0 12.3 - 15.4 % 11/10/2024 4:59 AM EDT [facility] RDW-SD 49.1 37.0 - 54.0 fl 11/10/2024 4:59 AM EDT [facility] MPV 11.9 6.0 - 12.0 fL 11/10/2024 4:59 AM EDT [facility] Platelets 109(L) 140 - 450 10*3/mm3 11/10/2024 4:59 AM EDT [facility] Blood Venipuncture / Unknown 11/10/2024 4:13 AM EDT 11/10/2024 4:52 AM EDT us Israel Jimenez MD LAB BLOOD ORDERABLES Final R esult [facility]
[address] [place] [address], * (ABNORMAL) Comprehensive Metabolic Panel (11/10/2024 4:13 AM EDT) [facility] Glucose 65 65 - 99 mg/dL 11/10/2024 5:15 AM EDT [facility] BUN 19.7 6.0 - 20.0 mg/dL 11/10/2024 5:15 AM EDT [facility] Creatinine 1.44(H) 0.76 - 1.27 mg/dL 11/10/2024 5:15 AM EDT [facility] Sodium 141 136 - 145 mmol/L 11/10/2024 5:15 AM EDT [facility] Potassium 4.3 3.5 - 5.2 mmol/L 11/10/2024 5:15 AM EDT [facility] Chloride 103 98 - 107 mmol/L 11/10/2024 5:15 AM EDT [facility] CO2 30.0(H) 22.0 - 29.0 mmol/L 11/10/2024 5:15 AM EDT [facility] Calcium 9.2 8.6 - 10.5 mg/dL 11/10/2024 5:15 AM EDT [facility] [facility] Total Protein 6.5 6.0 - 8.5 g/dL 11/10/2024 5:15 AM EDT [facility] Albumin 3.7 3.5 - 5.2 g/dL 11/10/2024 5:15 AM EDT [facility] ALT (SGPT) 24 1 - 41 U/L 11/10/2024 5:15 AM EDT [facility] AST (SGOT) 23 1 - 40 U/L 11/10/2024 5:15 AM EDT [facility] Alkaline Phosphatase 39 39 - 117 U/L 11/10/2024 5:15 AM EDT [facility] Total Bilirubin 0.3 0.0 - 1.2 mg/dL 11/10/2024 5:15 AM EDT [facility] Globulin 2.8 gm/dL 11/10/2024 5:15 AM EDT [facility] Comment:Calculated Result A/G Ratio 1.3 g/dL 11/10/2024 5:15 AM EDT [facility] BUN/Creatinine Ratio 13.7 7.0 - 25.0 11/10/2024 5:15 AM EDT [facility] Anion Gap 8.0 5.0 - 15.0 mmol/L 11/10/2024 5:15 AM EDT [facility] eGFR 56.7(L) >60.0 mL/min/1.7 3 11/10/2024 5:15 AM EDT [facility] Blood Venipuncture / Unknown 11/10/2024 4:13 AM EDT 11/10/2024 4:49 AM EDT [facility] LABORATORY - 11/10/2024 5:15 AM EDT GFR [...] MD LAB BLOOD ORDERABLES Final R esult [facility]
[address] [place] [address], * XR Chest 1 View (11/10/2024 3:00 AM EDT) Anatomical Region Laterality Modality Body N/A Radiographic Apurva ging 11/10/2024 9:30 AM EDT Impressions 11/10/2024 9:32 AM EDT Impression: 1.Bibasilar densities which could relate to atelectasis. A left pleural effusion not excluded. 2.Cardiomegaly. Some vascular congestion not excluded. Electronically Signed: Elliott Lopez MD 11/10/2024 9:32 AM EDT Workstation ID: [id number] Narrative 11/10/2024 9:32 AM EDT XR CHEST [...] MD 11/10/2024 9:32 AM EDT Workstation ID: [id number] Israel Jimenez MD IMG DIAGNOSTIC IMAGING ORDER NAYE Final Result * (ABNORMAL) POC Glucose Once (11/09/2024 7:37 PM EDT) Glucose 171(H) 70 - 130 mg/dL 11/09/2024 7:38 PM EDT [facility] Comment:Serial Number: [id number]: [id number] Blood 11/09/2024 7:37 PM EDT 11/09/2024 7:38 PM EDT us Israel Jimenez MD POINT OF CARE TEST ORDERABLE S Final Result Performing Organization Address City/[facility] Co de Phone Number [facility]
[address] [place] [address], * (ABNORMAL) POC Glucose Once (11/09/2024 4:45 PM EDT) Glucose 162(H) 70 - 130 mg/dL 11/09/2024 4:49 PM EDT [facility] Comment:Serial Number: [id number]: [id number] Blood 11/09/2024 4:45 PM EDT 11/09/2024 4:49 PM EDT us Israel Jimenez MD POINT OF CARE TEST ORDERABLE S Final Result Performing Organization Address [facility] de Phone Number [facility]
[address] [place] [address], * (ABNORMAL) POC Glucose 4x Daily Before Meals & at Bedtime (11/09/2024 12:16 PM EDT) Glucose 173(H) 70 - 130 mg/dL 11/09/2024 12:18 PM EDT [facility] Comment:Serial Number: [id number]: [id number] Blood 11/09/2024 12:1 6 PM EDT 11/09/2024 12:18 PM EDT us Israel Jimenez MD POINT OF CARE TEST ORDERABLE S Final Result Performing Organization Address City/[facility] Co de Phone Number [facility]
[address] [place] [address], * Telemetry Scan (11/09/2024 7:31 AM EDT) [facility] Onbase ECG ORDERABLES Final Result * (ABNORMAL) POC Glucose 4x Daily Before Meals & at Bedtime (11/09/2024 7:21 AM EDT) Glucose 156(H) 70 - 130 mg/dL 11/09/2024 7:23 AM EDT [facility] Comment:Serial Number: [id number]: [id number] Blood 11/09/2024 7:21 AM EDT 11/09/2024 7:23 AM EDT Israel Jimenez MD POINT OF CARE TEST ORDERABLE S Final Result Performing Organization Address City/[facility]/ZIP Co de Phone Number [facility]
[address] [place] [address], * (ABNORMAL) Phosphorus (11/09/2024 3:21 AM EDT) Phosphorus 2.0(L) 2.5 - 4.5 mg/dL 11/09/2024 5:17 AM EDT [facility] Blood Venipuncture / Unknown 11/09/2024 3:21 AM EDT 11/09/2024 4:14 AM EDT Israel Jimenez MD LAB BLOOD ORDERABLES Final R esult Performing Organization Address City/[facility]/ZIP Co de Phone Number [facility]
[address] [place] [address], * Magnesium (11/09/2024 3:21 AM EDT) Magnesium 2.0 1.6 - 2.6 mg/dL 11/09/2024 5:07 AM EDT [facility] Blood Venipuncture / Unknown 11/09/2024 3:21 AM EDT 11/09/2024 4:14 AM EDT Israel Jimenez MD LAB BLOOD ORDERABLES Final R esult [facility]
[address] [place] [address], * (ABNORMAL) CBC (No Diff) (11/09/2024 3:21 AM EDT) WBC 13.18(H) 3.40 - 10.80 10*3/mm3 11/09/2024 4:12 AM EDT [facility] RBC 4.90 4.14 - 5.80 10*6/mm3 11/09/2024 4:12 AM EDT [facility] Hemoglobin 13.7 13.0 - 17.7 g/dL 11/09/2024 4:12 AM EDT [facility] Hematocrit 44.1 37.5 - 51.0 % 11/09/2024 4:12 AM EDT [facility] MCV 90.0 79.0 - 97.0 fL 11/09/2024 4:12 AM EDT [facility] MCH 28.0 26.6 - 33.0 pg 11/09/2024 4:12 AM EDT [facility] MCHC 31.1(L) 31.5 - 35.7 g/dL 11/09/2024 4:12 AM EDT [facility] RDW 15.1 12.3 - 15.4 % 11/09/2024 4:12 AM EDT [facility] RDW-SD 49.8 37.0 - 54.0 fl 11/09/2024 4:12 AM EDT [facility] MPV 12.0 6.0 - 12.0 fL 11/09/2024 4:12 AM EDT [facility] Platelets 117(L) 140 - 450 10*3/mm3 11/09/2024 4:12 AM EDT [facility] Blood Venipuncture / Unknown 11/09/2024 3:21 AM EDT 11/09/2024 4:09 AM EDT Israel Jimenez MD LAB BLOOD ORDERABLES Final R esult [facility]
[address] [place] [address], * (ABNORMAL) Comprehensive Metabolic Panel (11/09/2024 3:21 AM EDT) Glucose 134(H) 65 - 99 mg/dL 11/09/2024 5:07 AM EDT [facility] BUN 26.4(H) 6.0 - 20.0 mg/dL 11/09/2024 5:07 AM EDT [facility] Creatinine 1.73(H) 0.76 - 1.27 mg/dL 11/09/2024 5:07 AM EDT [facility] Sodium 134(L) 136 - 145 mmol/L 11/09/2024 5:07 AM EDT [facility] Potassium 4.8 3.5 - 5.2 mmol/L 11/09/2024 5:07 AM EDT [facility] Chloride 100 98 - 107 mmol/L 11/09/2024 5:07 AM EDT [facility] CO2 24.2 22.0 - 29.0 mmol/L 11/09/2024 5:07 AM EDT [facility] Calcium 9.2 8.6 - 10.5 mg/dL 11/09/2024 5:07 AM EDT [facility] Total Protein 6.6 6.0 - 8.5 g/dL 11/09/2024 5:07 AM EDT [facility] Albumin 3.7 3.5 - 5.2 g/dL 11/09/2024 5:07 AM EDT [facility] ALT (SGPT) 16 1 - 41 U/L 11/09/2024 5:07 AM EDT [facility] AST (SGOT) 15 1 - 40 U/L 11/09/2024 5:07 AM EDT [facility] Alkaline Phosphatase 42 39 - 117 U/L 11/09/2024 5:07 AM EDT [facility] Total Bilirubin 0.3 0.0 - 1.2 mg/dL 11/09/2024 5:07 AM EDT [facility] Globulin 2.9 gm/dL 11/09/2024 5:07 AM EDT [facility] Comment:Calculated Result A/G Ratio 1.3 g/dL 11/09/2024 5:07 AM EDT [facility] BUN/Creatinine Ratio 15.3 7.0 - 25.0 11/09/2024 5:07 AM EDT [facility] Anion Gap 9.8 5.0 - 15.0 mmol/L 11/09/2024 5:07 AM EDT [facility] eGFR 45.5(L) >60.0 mL/min/1.7 3 11/09/2024 5:07 AM T [facility] Blood Venipuncture / Unknown 11/09/2024 3:21 AM EDT 11/09/2024 4:14 AM EDT [facility] LABORATORY - 11/09/2024 5:07 AM EDT GFR [...] MD LAB BLOOD ORDERABLES Final R esult [facility]
[address] [place] [address], [place] [phone] * (ABNORMAL) POC Glucose Once (11/08/2024 7:55 PM EDT) Pathologist [facility] Glucose 174(H) 70 - 130 mg/dL 11/08/2024 7:57 PM EDT [facility] Comment:Serial Number: [id number]: [id number] Blood 11/08/2024 7:55 PM EDT 11/08/2024 7:57 PM EDT Israel Jimenez MD POINT OF CARE TEST ORDERABLE S Final Result [facility]
[address] [place] [address], [place] [phone] * Respiratory Panel PCR w/COVID-19(SARS-CoV-2) WALT/RADHA/YANI/PAD/COR/ANISHA In-House, [employer] Swab in UTM/VTM, 2 HR TAT - Swab, Nasopharynx (11/08/2024 6:31 PM EDT) [facility] ADENOVIRUS, PCR Not Detected Not Detected BIOFIRE TORCH 11/08/2024 7:54 PM EDT [facility] Coronavirus 229E Not Detected Not Detected BIOFIRE TORCH 11/08/2024 7:54 PM EDT [facility] Coronavirus HKU1 Not Detected Not Detected BIOFIRE TORCH 11/08/2024 7:54 PM EDT [facility] Coronavirus NL63 Not Detected Not Detected BIOFIRE TORCH 11/08/2024 7:54 PM EDT [facility] Coronavirus OC43 Not Detected Not Detected BIOFIRE TORCH 11/08/2024 7:54 PM EDT [facility] COVID19 Not Detected Not Detected - Ref. Range BIOFIRE TORCH 11/08/2024 7:54 PM EDT [facility] Human Metapneumovirus Not Detected Not Detected BIOFIRE TORCH 11/08/2024 7:54 PM EDT [facility] Human Rhinovirus/Enterov irus Not Detected Not Detected BIOFIRE TORCH 11/08/2024 7:54 PM EDT [facility] Influenza A PCR Not Detected Not Detected BIOFIRE TORCH 11/08/2024 7:54 PM EDT [facility] Influenza B PCR Not Detected Not Detected BIOFIRE TOR 11/08/2024 7:54 PM EDT [facility] Parainfluenza Virus 1 Not Detected Not Detected BIOFIRE TOR 11/08/2024 7:54 PM EDT [facility] Parainfluenza Virus 2 Not Detected Not Detected BIOFIRE TOR 11/08/2024 7:54 PM EDT [facility] Parainfluenza Virus 3 Not Detected Not Detected BIOFIRE TOR 11/08/2024 7:54 PM EDT [facility] Parainfluenza Virus 4 Not Detected Not Detected BIOFIRE TOR 11/08/2024 7:54 PM EDT [facility] RSV, PCR Not Detected Not Detected BIOFIRE TOR 11/08/2024 7:54 PM EDT [facility] Bordetella pertussis pcr Not Detected Not Detected BIOFIRE TOR 11/08/2024 7:54 PM EDT [facility] Bordetella parapertussis PCR Not Detected Not Detected BIOFIRE TOR 11/08/2024 7:54 PM EDT [facility] Chlamydophila pneumoniae PCR Not Detected Not Detected BIOFIRE TOR 11/08/2024 7:54 PM EDT [facility] Mycoplasma pneumo by PCR Not Detected Not Detected BIOFIRE TOR 11/08/2024 7:54 PM EDT [facility] Swab Nasopharyngeal structure / Unknown Collection / Unknown 11/08/2024 6:31 PM EDT 11/08/2024 7:03 PM EDT [facility] LABORATORY - 11/08/2024 7:54 PM EDT In [...] ORDE RABLES Final Result Performing Organization Address [facility] de Phone Number [facility]
[address] [place] [address], * Lactic Acid, Plasma (11/08/2024 6:28 PM EDT) Pathologist [facility] Lactate 1.7 0.5 - 2.0 mmol/L 11/08/2024 7:00 PM EDT [facility] Comment:Falsely depressed re sults may occur on samples drawn from patients receiving N-Acetylcysteine (NAC) or Metamizole. Blood Venipuncture / Unknown 11/08/2024 6:28 PM EDT 11/08/2024 6:41 PM EDT Dina Sanchez APRN LAB BLOOD ORDERABLES Final Result Performing Organization Address [facility] de Phone Number [facility]
[address] [place] [address], * (ABNORMAL) POC Glucose Once (11/08/2024 6:06 PM EDT) Pathologist [facility] Glucose 146(H) 70 - 130 mg/dL 11/08/2024 6:08 PM EDT [facility] Comment:Serial Number: [id number]: [id number] Blood 11/08/2024 6:06 PM EDT 11/08/2024 6:08 PM EDT Israel Jimenez MD POINT OF CARE TEST ORDERABLE S Final Result Performing Organization Address [facility] de Phone Number [facility]
[address] [place] [address], * CT Chest Without Contrast Diagnostic (11/08/2024 5:55 PM EDT) Anatomical Region Laterality Modality Chest N/A Computed Tomogra phy 11/09/2024 8:12 AM EDT Impressions 11/09/2024 8:16 AM EDT Impression: 1.Bilateral lower lung airspace disease suggestive of multifocal pneumonia. 2.Trace bilateral pleural effusions. Electronically Signed: Rah Mayberry MD 11/09/2024 8:16 AM EDT Workstation ID: [id number] Narrative 11/09/2024 8:[address] CHEST [...] MD 11/09/2024 8:16 AM EDT Workstation ID: [id number] us Israel Jimenez MD IMG CT ORDERABLES Final Resu lt * NM Lung Ventilation Perfusion (11/08/2024 5:42 PM EDT) Anatomical Region Laterality Modality Chest N/A Nuclear Medicine 11/08/2024 11:5 5 PM EDT Impressions 11/09/2024 12:02 AM EDT Low probability for pulmonary embolism Electronically Signed: Acosta Maxwell MD 11/09/2024 12:02 AM EDT Workstation ID: [id number] Narrative 11/09/2024 12:02 AM EDT DATE OF [...] MD 11/09/2024 12:02 AM EDT Workstation ID: [id number] us Israel Jimenez MD IMG NM ORDERABLES [...] Basic Metabolic Panel (11/08/2024 4:21 PM EDT) [facility] Signature Glucose 201(H) 65 - 99 mg/dL 11/08/2024 4:56 PM EDT [facility] BUN 30.5(H) 6.0 - 20.0 mg/dL 11/08/2024 4:56 PM EDT [facility] Creatinine 2.36(H) 0.76 - 1.27 mg/dL 11/08/2024 4:56 PM EDT [facility] Sodium 135(L) 136 - 145 mmol/L 11/08/2024 4:56 PM EDT [facility] Potassium 4.7 3.5 - 5.2 mmol/L 11/08/2024 4:56 PM T [facility] Comment:Specimen hemolyzed. Result may be falsely elevated. Chloride 99 98 - 107 mmol/L 11/08/2024 4:56 PM EDT [facility] CO2 24.4 22.0 - 29.0 mmol/L 11/08/2024 4:56 PM EDT [facility] Calcium 9.2 8.6 - 10.5 mg/dL 11/08/2024 4:56 PM T [facility] BUN/Creatinine Ratio 12.9 7.0 - 25.0 11/08/2024 4:56 PM T [facility] Anion Gap 11.6 5.0 - 15.0 mmol/L 11/08/2024 4:56 PM T [facility] eGFR 31.3(L) >60.0 mL/min/1.7 3 11/08/2024 4:56 PM T [facility] Blood Venipuncture / Unknown 11/08/2024 4:21 PM EDT 11/08/2024 4:28 PM EDT [facility] LABORATORY - 11/08/2024 4:56 PM EDT GFR [...] ORDERABLES Final R esult Performing Organization Address City/[facility]/ZIP Co de Phone Number [facility]
[address] [place] [address], * Telemetry Scan (11/08/2024 2:29 PM EDT) [facility] Onbase ECG ORDERABLES Final Result * (ABNORMAL) POC Glucose Once (11/08/2024 11:52 AM EDT) Glucose 167(H) 70 - 130 mg/dL 11/08/2024 12:11 PM EDT [facility] Comment:Serial Number: [id number]: [id number] Blood 11/08/2024 11:5 2 AM EDT 11/08/2024 12:11 PM EDT Israel Jimenez MD POINT OF CARE TEST ORDERABLE S Final Result Performing Organization Address City/[facility]/ZIP Co de Phone Number [facility]
[address] [place] [address], * XR Chest 1 View (11/08/2024 9:34 AM EDT) Anatomical Region Laterality Modality Body N/A Radiographic Apurva ging 11/08/2024 9:42 AM EDT Impressions 11/08/2024 9:45 AM EDT Impression: New patchy airspace opacity in the left base may be due to atelectasis or infiltrate. Correlate clinically for pneumonia. Electronically Signed: Acosta Grider MD 11/08/2024 9:45 AM EDT Workstation ID: [id number] Narrative 11/08/2024 9:45 AM EDT XR CHEST [...] MD 11/08/2024 9:45 AM EDT Workstation ID: [id number] us Israel Jimenez MD IMG DIAGNOSTIC IMAGING ORDER NAYE Final Result * (ABNORMAL) POC Glucose 4x Daily Before Meals & at Bedtime (11/08/2024 7:18 AM EDT) Glucose 232(H) 70 - 130 mg/dL 11/08/2024 7:21 AM EDT [facility] Comment:Serial Number: [id number]: [id number] Candace Comment 1 Notified Patients RN 11/08/2024 7:21 AM EDT [facility] Blood 11/08/2024 7:18 AM EDT 11/08/2024 7:21 AM EDT us Israel Jimenez MD POINT OF CARE TEST ORDERABLE S Final Result Performing Organization Address [facility] de Phone Number [facility]
[address] [place] [address], * Phosphorus (11/08/2024 3:10 AM EDT) Phosphorus 4.1 2.5 - 4.5 mg/dL 11/08/2024 3:57 AM EDT [facility] Blood Venipuncture / Unknown 11/08/2024 3:10 AM EDT 11/08/2024 3:32 AM EDT Dina Sanchez APRN LAB BLOOD ORDERABLES Final Result Performing Organization Address [facility] de Phone Number [facility]
[address] [place] [address], * Magnesium (11/08/2024 3:10 AM EDT) Magnesium 2.0 1.6 - 2.6 mg/dL 11/08/2024 3:57 AM EDT [facility] Blood Venipuncture / Unknown 11/08/2024 3:10 AM EDT 11/08/2024 3:32 AM EDT Dina Sanchez APRN LAB BLOOD ORDERABLES Final Result Performing Organization Address [facility] Co de Phone Number [facility]
[address] [place] [address], * (ABNORMAL) Comprehensive Metabolic Panel (11/08/2024 3:10 AM EDT) Glucose 137(H) 65 - 99 mg/dL 11/08/2024 3:57 AM EDT [facility] BUN 36.0(H) 6.0 - 20.0 mg/dL 11/08/2024 3:57 AM [facility] Creatinine 3.55(H) 0.76 - 1.27 mg/dL 11/08/2024 3:57 AM [facility] Sodium 134(L) 136 - 145 mmol/L 11/08/2024 3:57 AM [facility] Potassium 5.3(H) 3.5 - 5.2 mmol/L 11/08/2024 3:57 AM [facility] Chloride 97(L) 98 - 107 mmol/L 11/08/2024 3:57 AM [facility] CO2 24.4 22.0 - 29.0 mmol/L 11/08/2024 3:57 AM [facility] Calcium 9.0 8.6 - 10.5 mg/dL 11/08/2024 3:57 AM [facility] Total Protein 7.0 6.0 - 8.5 g/dL 11/08/2024 3:57 AM [facility] Albumin 4.0 3.5 - 5.2 g/dL 11/08/2024 3:57 AM [facility] ALT (SGPT) 22 1 - 41 U/L 11/08/2024 3:57 AM [facility] AST (SGOT) 20 1 - 40 U/L 11/08/2024 3:57 AM [facility] Alkaline Phosphatase 48 39 - 117 U/L 11/08/2024 3:57 AM [facility] Total Bilirubin 0.3 0.0 - 1.2 mg/dL 11/08/2024 3:57 AM [facility] Globulin 3.0 gm/dL 11/08/2024 3:57 AM [facility] Comment:Calculated Result A/G Ratio 1.3 g/dL 11/08/2024 3:57 AM [facility] BUN/Creatinine Ratio 10.1 7.0 - 25.0 11/08/2024 3:57 AM [facility] Anion Gap 12.6 5.0 - 15.0 mmol/L 11/08/2024 3:57 AM EDT [facility] eGFR 19.2(L) >60.0 mL/min/1.7 3 11/08/2024 3:57 AM EDT [facility] Blood Venipuncture / Unknown 11/08/2024 3:10 AM EDT 11/08/2024 3:32 AM EDT [facility] LABORATORY - 11/08/2024 3:57 AM EDT GFR [...] include race as a factor Dina Sanchez CHECK WRITER LAB BLOOD ORDERABLES Final Result [facility]
[address] [place] [address], * (ABNORMAL) CBC Auto Differential (11/08/2024 3:10 AM EDT) WBC 15.14(H) 3.40 - 10.80 10*3/mm3 11/08/2024 3:39 AM EDT [facility] RBC 5.17 4.14 - 5.80 10*6/mm3 11/08/2024 3:39 AM EDT [facility] Hemoglobin 14.7 13.0 - 17.7 g/dL 11/08/2024 3:39 AM EDT [facility] Hematocrit 45.7 37.5 - 51.0 % 11/08/2024 3:39 AM EDT [facility] MCV 88.4 79.0 - 97.0 fL 11/08/2024 3:39 AM [facility] MCH 28.4 26.6 - 33.0 pg 11/08/2024 3:39 AM [facility] MCHC 32.2 31.5 - 35.7 g/dL 11/08/2024 3:39 AM [facility] RDW 15.1 12.3 - 15.4 % 11/08/2024 3:39 AM [facility] RDW-SD 49.2 37.0 - 54.0 fl 11/08/2024 3:39 AM [facility] MPV 11.4 6.0 - 12.0 fL 11/08/2024 3:39 AM [facility] Platelets 154 140 - 450 10*3/mm3 11/08/2024 3:39 AM [facility] Neutrophil % 87.0(H) 42.7 - 76.0 % 11/08/2024 3:39 AM [facility] Lymphocyte % 7.9(L) 19.6 - 45.3 % 11/08/2024 3:39 AM [facility] Monocyte % 4.3(L) 5.0 - 12.0 % 11/08/2024 3:39 AM [facility] Eosinophil % 0.1(L) 0.3 - 6.2 % 11/08/2024 3:39 AM [facility] Basophil % 0.1 0.0 - 1.5 % 11/08/2024 3:39 AM [facility] Immature Grans % 0.6(H) 0.0 - 0.5 % 11/08/2024 3:39 AM [facility] Neutrophils, Absolute 13.18(H) 1.70 - 7.00 10*3/mm3 11/08/2024 3:39 AM [facility] Lymphocytes, Absolute 1.20 0.70 - 3.10 10*3/mm3 11/08/2024 3:39 AM [facility] Monocytes, Absolute 0.65 0.10 - 0.90 10*3/mm3 11/08/2024 3:39 AM EDT [facility] Eosinophils, Absolute 0.01 0.00 - 0.40 10*3/mm3 11/08/2024 3:39 AM EDT [facility] Basophils, Absolute 0.01 0.00 - 0.20 10*3/mm3 11/08/2024 3:39 AM EDT [facility] Immature Grans, Absolute 0.09(H) 0.00 - 0.05 10*3/mm3 11/08/2024 3:39 AM EDT [facility] nRBC 0.0 0.0 - 0.2 /100 WBC 11/08/2024 3:39 AM EDT [facility] Blood Venipuncture / Unknown 11/08/2024 3:10 AM EDT 11/08/2024 3:35 AM EDT iDna Sanchez APRN LAB BLOOD ORDERABLES Final Result Performing Organization Address [facility] Co de Phone Number [facility]
[address] [place] [address], [place] [phone] * (ABNORMAL) STAT Lactic Acid, Reflex (11/08/2024 12:04 AM EDT) [facility] Lactate 2.6(HH) 0.5 - 2.0 mmol/L 11/08/2024 1:29 AM EDT [facility] Comment:Falsely depressed re sults may occur on samples drawn from patients receiving N-Acetylcysteine (NAC) or Metamizole. Blood Venipuncture / Unknown 11/08/2024 12:04 AM EDT 11/08/2024 1:01 AM EDT Dina Sanchez CHECK WRITER LAB BLOOD ORDERABLES Final Result Performing Organization Address [facility]/ZIP Co de Phone Number [facility]
[address] [place] [address], [place] [phone] * (ABNORMAL) STAT Lactic Acid, Reflex (11/07/2024 8:52 PM EDT) Lactate 2.1(HH) 0.5 - 2.0 mmol/L 11/07/2024 9:51 PM EDT [facility] Comment:Falsely depressed re sults may occur on samples drawn from patients receiving N-Acetylcysteine (NAC) or Metamizole. Blood Venipuncture / Unknown 11/07/2024 8:52 PM EDT 11/07/2024 9:29 PM EDT Dina Sanchez APRN LAB BLOOD ORDERABLES Final Result Performing Organization Address [facility] Co de Phone Number [facility]
[address] [place] [address], * (ABNORMAL) POC Glucose Finger Q1H (11/07/2024 8:02 PM EDT) Glucose 175(H) 70 - 130 mg/dL 11/07/2024 8:07 PM EDT [facility] Comment:Serial Number: [id number]: [id number] Blood Finger structure / Unknown 11/07/2024 8:02 PM EDT 11/07/2024 8:07 PM EDT Dina Sanchez APRN POINT OF CARE TEST ORDERABL ES Final Result Performing Organization Address City/[facility]/ZIP Co de Phone Number [facility]
[address] [place] [address], [place] [phone] * (ABNORMAL) POC Glucose Finger Q1H (11/07/2024 7:09 PM EDT) Glucose 191(H) 70 - 130 mg/dL 11/07/2024 7:12 PM EDT [facility] Comment:Serial Number: [id number]: [id number] Blood Finger structure / Unknown 11/07/2024 7:09 PM EDT 11/07/2024 7:12 PM EDT Dina Sanchez APRN POINT OF CARE TEST ORDERABL ES Final Result [facility]
[address] [place] [address], [place] [phone] * Urea Nitrogen, Urine - Urine, Clean Catch (11/07/2024 6:12 PM EDT) Urea Nitrogen, Urine 119 mg/dL 11/08/2024 12:25 PM EDT [facility] Urine Urine specimen obtained by clean catch procedure / Unknown Collection / Unknown 11/07/2024 6:12 PM EDT 11/08/2024 7:51 AM EDT Narrative [facility] - 11/08/2024 12:25 PM EDT Reference intervals for random urine have not been established. Clinical usage is dependent upon physician's interpretation in combination with other laboratory tests. us Israel Jimenez MD URINE ORDERABLES Final Resul t [facility]
[address] [place] [address], * Creatinine Urine Random (kidney function) GFR component - Urine, Clean Catch (11/07/2024 6:12 PM EDT) Creatinine, Urine 94.0 mg/dL 11/08/2024 12:25 PM EDT [facility] Urine Urine specimen obtained by clean catch procedure / Unknown Collection / Unknown 11/07/2024 6:12 PM EDT 11/08/2024 7:51 AM EDT Narrative [facility] - 11/08/2024 12:25 PM EDT Reference intervals for random urine have not been established. Clinical usage is dependent upon physician's interpretation in combination with other laboratory tests. us Israel Jimenez MD URINE ORDERABLES Final Resul t Performing Organization Address City/[facility]/ZIP Co de Phone Number [facility]
[address] [place] [address], [place] [phone] * Sodium, Urine, Random - Urine, Clean Catch (11/07/2024 6:12 PM EDT) Sodium, Urine 55 mmol/L 11/08/2024 8:11 AM EDT [facility] Urine Urine specimen obtained by clean catch procedure / Unknown Collection / Unknown 11/07/2024 6:12 PM EDT 11/08/2024 7:51 AM EDT [facility] - 11/08/2024 8:11 AM EDT Reference intervals for random urine have not been established. Clinical usage is dependent upon physician's interpretation in combination with other laboratory tests. Israel iJmenez MD URINE ORDERABLES Final Resul t Performing Organization Address [facility]/ZIP Co de Phone Number [facility]
[address] [place] [address], [place] [phone] * Urinalysis, Microscopic Only - Urine, Clean Catch (11/07/2024 6:12 PM EDT) Pathologist [facility] RBC, UA 0-2 None Seen, 0-2 /HPF 11/07/2024 6:43 PM EDT [facility] WBC, UA 0-2 None Seen, 0-2 /HPF 11/07/2024 6:43 PM EDT [facility] Comment:Urine culture not in dicated. Bacteria, UA None Seen None Seen /HPF 11/07/2024 6:43 PM EDT [facility] Squamous Epithelial Cells, UA 0-2 None Seen, 0-2 /HPF 11/07/2024 6:43 PM EDT [facility] Hyaline Casts, UA 13-20 None Seen /LPF 11/07/2024 6:43 PM EDT [facility] Methodology Automated Microscopy 11/07/2024 6:43 PM EDT [facility] Urine Urine specimen obtained by clean catch procedure / Unknown Collection / Unknown 11/07/2024 6:12 PM EDT 11/07/2024 6:33 PM EDT Dina Sanchez CHECK WRITER URINE ORDERABLES Final Resu lt Performing Organization Address [facility] Co de Phone Number [facility]
[address] [place] [address], * Fentanyl, Urine - Urine, Clean Catch (11/07/2024 6:12 PM EDT) Fentanyl, Urine Negative Negative 11/07/2024 7:00 PM EDT [facility] Urine Urine specimen obtained by clean catch procedure / Unknown Collection / Unknown 11/07/2024 6:12 PM EDT 11/07/2024 6:34 PM EDT [facility] - 11/07/2024 7:00 PM EDT Negative [...] when unconfirmed results are used. us Dina Sanchze APRN URINE ORDERABLES Final Resu lt Performing Organization Address [facility] Co de Phone Number [facility]
[address] [place] [address], [place] [phone] * (ABNORMAL) Urinalysis With Culture If Indicated - Urine, Clean Catch (11/07/2024 6:12 PM EDT) Color, UA Yellow Yellow, Straw 11/07/2024 6:43 PM EDT [facility] Appearance, UA Clear Clear 11/07/2024 6:43 PM EDT [facility] pH, UA <=5.0 5.0 - 8.0 11/07/2024 6:43 PM EDT [facility] Specific [place], UA 1.013 1.005 - 1.030 11/07/2024 6:43 PM EDT [facility] Glucose, UA Negative Negative 11/07/2024 6:43 PM EDT [facility] Ketones, UA Negative Negative 11/07/2024 6:43 PM EDT [facility] Bilirubin, UA Negative Negative 11/07/2024 6:43 PM EDT [facility] Blood, UA Negative Negative 11/07/2024 6:43 PM EDT [facility] Protein, UA Trace(A) Negative 11/07/2024 6:43 PM EDT [facility] Leuk Esterase, UA Trace(A) Negative 11/07/2024 6:43 PM EDT [facility] Nitrite, UA Negative Negative 11/07/2024 6:43 PM EDT [facility] Urobilinogen, UA 0.2 E.U./dL 0.2 - 1.0 E.U./dL 11/07/2024 6:43 PM EDT [facility] Urine Urine specimen obtained by clean catch procedure / Unknown Collection / Unknown 11/07/2024 6:12 PM EDT 11/07/2024 6:33 PM EDT [facility] - 11/07/2024 6:43 PM EDT In absence of clinical symptoms, the presence of pyuria, bacteria, and/or nitrites on the urinalysis result does not correlate with infection. us Dina Sanchez CHECK WRITER URINE ORDERABLES Final Resu lt [facility]
[address] [place] [address], * (ABNORMAL) Urine Drug Screen - Urine, Clean Catch (11/07/2024 6:12 PM EDT) [facility] Signature THC, Screen, Urine Negative Negative 2024 6:47 PM EDT [facility] Phencyclidine (PCP), Urine Negative Negative 11/07/2024 6:47 PM EDT [facility] Cocaine Screen, Urine Negative Negative 11/07/2024 6:47 PM EDT [facility] Methamphetamine, Ur Negative Negative 11/07/2024 6:47 PM EDT [facility] Opiate Screen Negative Negative 11/07/2024 6:47 PM EDT [facility] Amphetamine Screen, Urine Negative Negative 11/07/2024 6:47 PM EDT [facility] Benzodiazepine Screen, Urine Positive(A) Negative 11/07/2024 6:47 PM EDT [facility] Tricyclic Antidepressants Screen Positive(A) Negative 11/07/2024 6:47 PM EDT [facility] Methadone Screen, Urine Negative Negative 11/07/2024 6:47 PM EDT [facility] Barbiturates Screen, Urine Negative Negative 11/07/2024 6:47 PM EDT [facility] Oxycodone Screen, Urine Negative Negative 11/07/2024 6:47 PM EDT [facility] Buprenorphine, Screen, Urine Negative Negative 11/07/2024 6:47 PM T [facility] Urine Urine specimen obtained by clean catch procedure / Unknown Collection / Unknown 11/07/2024 6:12 PM EDT 11/07/2024 6:34 PM EDT [facility] - 11/07/2024 6:47 PM EDT Cutoff [...] ORDERABLES Final Resu lt Performing Organization Address City/[facility]/ZIP Co de Phone Number [facility]
[address] [place] [address], * (ABNORMAL) POC Glucose Finger Q1H (11/07/2024 6:07 PM EDT) Glucose 154(H) 70 - 130 mg/dL 11/07/2024 6:10 PM EDT [facility] Comment:Serial Number: [id number]: [id number] Blood Finger structure / Unknown 11/07/2024 6:07 PM EDT 11/07/2024 6:10 PM EDT Dina Sanchez APRN POINT OF CARE TEST ORDERABL ES Final Result Performing Organization Address [facility] Co de Phone Number [facility]
[address] [place] [address], * (ABNORMAL) POC Glucose Finger Q1H (11/07/2024 5:37 PM EDT) Glucose 143(H) 70 - 130 mg/dL 11/07/2024 5:40 PM EDT [facility] Comment:Serial Number: [id number]: [id number] Blood Finger structure / Unknown 11/07/2024 5:37 PM EDT 11/07/2024 5:40 PM EDT Dina Sanchez APRN POINT OF CARE TEST ORDERABL ES Final Result Performing Organization Address [facility] Co de Phone Number [facility]
[address] [place] [address], * Respiratory Culture - Sputum, Cough (11/07/2024 5:31 PM EDT) [facility] Respiratory Culture Scant growth (1+) Normal respiratory candace. No S. aureus or Pseudomonas aeruginosa detected. Final report. TRINI 11/09/2024 12:30 PM EDT [facility] Gram Stain Moderate (3+) WBCs per low power field 11/09/2024 12:30 PM EDT [facility] Gram Stain Rare (1+) Epithelial cells per low power field 11/09/2024 12:30 PM EDT [facility] Gram Stain No organisms seen 11/09/2024 12:30 PM EDT [facility] Sputum Coughed sputum specimen / Unknown Collection / Unknown 11/07/2024 5:31 PM EDT 11/07/2024 5:42 PM EDT Dina Sanchez APRN MICROBIOLOGY - GENERAL ALICIA YUNGLES Final Result [facility]
[address] [place] [address], [place] [phone] [facility]
[address] [place] [address], [place] [phone] * (ABNORMAL) STAT Lactic Acid, Reflex (11/07/2024 5:30 PM EDT) [facility] Lactate 2.3(HH) 0.5 - 2.0 mmol/L 11/07/2024 6:25 PM EDT [facility] Comment:Falsely depressed re sults may occur on samples drawn from patients receiving N-Acetylcysteine (NAC) or Metamizole. Blood Venipuncture / Unknown 11/07/2024 5:30 PM EDT 11/07/2024 5:53 PM EDT us Dina Sanchez APRN LAB BLOOD ORDERABLES Final Result [facility]
[address] [place] [address], [place] [phone] * Blood Culture - Blood, Hand, Left (11/07/2024 5:29 PM EDT) Blood Culture No growth at 5 days 11/12/2024 6:01 PM EDT [facility] Blood Structure of left hand / Unknown Venipuncture / Unknown 11/07/2024 5:29 PM EDT 11/07/2024 6:00 PM EDT Dina Sanchez CHECK WRITER MICROBIOLOGY - GENERAL ORDE RABLES Final Result [facility]
[address] [place] [address], * Blood Culture - Blood, Arm, Left (11/07/2024 5:29 PM EDT) Pathologist [facility] Blood Culture No growth at 5 days 11/12/2024 6:01 PM EDT [facility] Blood Structure of left upper limb / Unknown Venipuncture / Unknown 11/07/2024 5:29 PM EDT 11/07/2024 5:59 PM EDT Dina Sanchez APRN MICROBIOLOGY - GENERAL ORDE RABLES Final Result [facility]
[address] [place] [address], * (ABNORMAL) High Sensitivity Troponin T 1Hr (11/07/2024 5:29 PM EDT) HS Troponin T 22(H) <22 ng/L 11/07/2024 6:17 PM EDT [facility] Troponin T Numeric Delta 0 ng/L 11/07/2024 6:17 PM EDT [facility] Troponin T % Delta 0 Abnormal if >/= 20% 11/07/2024 6:17 PM EDT [facility] Blood Venipuncture / Unknown 11/07/2024 5:29 PM EDT 11/07/2024 5:52 PM EDT Narrative [facility] - 11/07/2024 6:17 PM EDT [...] BLOOD ORDERABLES Final Result Performing Organization Address City/[facility]/ZIP Co de Phone Number [facility]
[address] [place] [address], [place] [phone] * Aldosterone (11/07/2024 5:29 PM EDT) [facility] Aldosterone 5.0 0.0 - 30.0 ng/dL 11/13/2024 11:11 AM EDT [facility] Blood Venipuncture / Unknown 11/07/2024 5:29 PM EDT 11/07/2024 5:53 PM EDT [facility] - 11/13/2024 11:11 AM EDT Test(s) 281282-[id number] was developed and its performance characteristics determined by [facility]. It has not been cleared or approved by the Food and Drug Administration. Performed at: 01 - [address] [id number] [employer] Merchandiser: Fay Conway MD, Phone: [phone] Dina Sanchez APRN LAB BLOOD ORDERABLES Final Result [facility] [address] [place] [address], [place] [phone] * Metanephrines, Frac. Free, Plasma (11/07/2024 5:29 PM EDT) Normetanephrine 186.7 0.0 - 244.0 pg/mL 11/11/2024 9:08 PM EDT [facility] Metanephrine 34.1 0.0 - 88.0 pg/mL 11/11/2024 9:08 PM EDT [facility] Blood Venipuncture / Unknown 11/07/2024 5:29 PM EDT 11/07/2024 5:55 PM EDT [facility] - 11/11/2024 9:08 PM EDT Test(s) [id number], Pl; [id number]-Yrpdrggbihgn, Pl was developed and its performance characteristics determined by [email or web address]. It has not been cleared or approved by the Food and Drug Administration. Performed at: [address] - [address] [id number] [employer] Merchandiser: Fay Conway MD, Phone: [phone] Dina Sanchez APRN LAB BLOOD ORDERABLES Final Result Performing Organization Address City/State/[facility] de Phone Number [facility] [address] [place] [address], * MRSA Screen, PCR (Inpatient) - Swab, Nares (11/07/2024 5:19 PM EDT) Pathologist [facility] MRSA PCR Negative Negative CEPHEID GENEXPERT 11/07/2024 6:38 PM EDT [facility] Swab Structure of anterior naris / Unknown Collection / Unknown 11/07/2024 5:19 PM EDT 11/07/2024 5:26 PM EDT [facility] - 11/07/2024 6:38 PM EDT The negative predictive value of this diagnostic test is high and should only be used to consider de-escalating anti-MRSA therapy. A positive result may indicate colonization with MRSA and must be correlated clinically. MRSA Negative Dina Sanchez APRN MICROBIOLOGY - GENERAL ORDE RABLES Final Result Performing Organization Address City/State/[facility] Co de Phone Number [facility]
[address] [place] [address], [place] [phone] * (ABNORMAL) POC Glucose Once (11/07/2024 4:55 PM EDT) [facility] Glucose 56(L) 70 - 130 mg/dL 11/07/2024 5:00 PM EDT [facility] Comment:Serial Number: [id number] Blood 11/07/2024 4:55 PM EDT 11/07/2024 5:00 PM EDT Alexsander Branch MD POINT OF CARE TEST ORDERAB LES Final Result [facility]
[address] [place] [address], * ECHO COMPLETE W/ DOPPLER AND COLOR FLOW (11/07/2024 3:51 PM EDT) [facility] EF(MOD-bp) 54.9 % LVIDd 4.7 cm LVIDs [...] aortic root is present. us Dina Sanchez CHECK WRITER CV ECHO ORDERABLES Final Re sult * [...] previous ECGs available Confirmed by Mei Mccurdy ([id number]) on 11/11/2024 5:17:11 PM Referred By: Confirmed [...] previous ECGs available Confirmed by Mei Mccurdy ([id number]) on 11/11/2024 5:17:11 PM Referred By: Confirmed By: Mei Mccurdy Dina Sanchez CHECK WRITER ECG ORDERABLES Final Resul t Performing Organization Address City/[facility] Co de Phone Number ECG * POC Glucose Once (11/07/2024 3:38 PM EDT) Glucose 73 70 - 130 mg/dL 11/12/2024 7:52 AM EDT [facility] Comment:Serial Number: [id number]: [id number] Blood 11/07/2024 3:38 PM EDT 11/12/2024 7:51 AM EDT Yonatan Lebron MD POINT OF CARE TEST ORDERABLES Final Result Performing Organization Address [facility] Co de Phone Number [facility]
[address] [place] [address], * (ABNORMAL) POC Glucose Once (11/07/2024 3:10 PM EDT) Glucose 51(L) 70 - 130 mg/dL 11/07/2024 3:11 PM EDT [facility] Comment:Serial Number: [id number] Blood 11/07/2024 3:10 PM EDT 11/07/2024 3:11 PM EDT Alexsander Branch MD POINT OF CARE TEST ORDERAB LES Final Result Performing Organization Address [facility] Co de Phone Number [facility]
[address] [place] [address], * Cortisol (11/07/2024 3:08 PM EDT) Cortisol 7.95 mcg/dL 11/07/2024 4:30 PM EDT [facility] Blood Line / Unknown 11/07/2024 3: 08 PM EDT 11/07/2024 3:15 PM EDT Narrative [facility] - 11/07/2024 4:30 PM EDT Cortisol Reference Ranges: Cortisol 6AM - 10AM Range: 6.02-18.40 mcg/dl Cortisol 4PM - 8PM Range: 2.68-10.50 mcg/dl Results may be falsely increased if patient taking Biotin. Dina Sanchez APRN LAB BLOOD ORDERABLES Final Result Performing Organization Address City/[facility]/ZIP Co de Phone Number [facility]
[address] [place] [address], * (ABNORMAL) High Sensitivity Troponin T (11/07/2024 3:08 PM EDT) HS Troponin T 22(H) <22 ng/L 11/07/2024 4:30 PM EDT [facility] Blood Line / Unknown 11/07/2024 3: 08 PM EDT 11/07/2024 3:15 PM EDT [facility] - 11/07/2024 4:30 PM EDT High [...] BLOOD ORDERABLES Final Result Performing Organization Address City/[facility]/ZIP Co de Phone Number [facility]
[address] [place] [address], * Protime-INR (11/07/2024 3:08 PM EDT) Protime 14.5 12.2 - 15.3 Seconds 11/07/2024 4:07 PM EDT [facility] INR 1.07 0.89 - 1.12 11/07/2024 4:07 PM EDT [facility] Blood Line / Unknown 11/07/2024 3: 08 PM EDT 11/07/2024 3:15 PM EDT Dina Sanchez CHECK WRITER LAB BLOOD ORDERABLES Final Result [facility]
[address] [place] [address], * (ABNORMAL) Procalcitonin (11/07/2024 3:08 PM EDT) Procalcitonin 0.38(H) 0.00 - 0.25 ng/mL 11/07/2024 4:24 PM EDT [facility] Blood Line / Unknown 11/07/2024 3: 08 PM EDT 11/07/2024 3:15 PM EDT Narrative [facility] - 11/07/2024 4:24 PM EDT [...] Day 4 values are available. Refer to http://www.famslw-jht-cbjicjocwk.com Change in PCT <=80% A decrease of [...] BLOOD ORDERABLES Final Result Performing Organization Address [facility] Co de Phone Number [facility]
[address] [place] [address], * (ABNORMAL) Phosphorus (11/07/2024 3:08 PM EDT) Phosphorus 5.4(H) 2.5 - 4.5 mg/dL 11/07/2024 4:30 PM EDT [facility] Blood Line / Unknown 11/07/2024 3: 08 PM EDT 11/07/2024 3:15 PM EDT Dina Sanchez APRN LAB BLOOD ORDERABLES Final Result Performing Organization Address [facility] de Phone Number [facility]
[address] [place] [address], * Magnesium (11/07/2024 3:08 PM EDT) Magnesium 1.9 1.6 - 2.6 mg/dL 11/07/2024 4:36 PM EDT [facility] Blood Line / Unknown 11/07/2024 3: 08 PM EDT 11/07/2024 3:15 PM EDT Dina Sanchez [facility] BLOOD ORDERABLES Final Result Performing Organization Address [facility] de Phone Number [facility]
[address] [place] [address], * (ABNORMAL) Lactic Acid, Plasma (11/07/2024 3:08 PM EDT) Lactate 2.6(HH) 0.5 - 2.0 mmol/L 11/07/2024 4:11 PM EDT [facility] Comment:Falsely depressed re sults may occur on samples drawn from patients receiving N-Acetylcysteine (NAC) or Metamizole. Blood Line / Unknown 11/07/2024 3: 08 PM EDT 11/07/2024 3:15 PM EDT Dina Sanchez CHECK WRITER LAB BLOOD ORDERABLES Final Result [facility]
[address] [place] [address], * (ABNORMAL) Comprehensive Metabolic Panel (11/07/2024 3:08 PM EDT) Glucose 48(LL) 65 - 99 mg/dL 11/07/2024 4:36 PM EDT [facility] BUN 33.3(H) 6.0 - 20.0 mg/dL 11/07/2024 4:36 PM EDT [facility] Creatinine 3.72(H) 0.76 - 1.27 mg/dL 11/07/2024 4:36 PM EDT [facility] Sodium 136 136 - 145 mmol/L 11/07/2024 4:36 PM EDT [facility] Potassium 5.1 3.5 - 5.2 mmol/L 11/07/2024 4:36 PM EDT [facility] Chloride 96(L) 98 - 107 mmol/L 11/07/2024 4:36 PM EDT [facility] CO2 28.0 22.0 - 29.0 mmol/L 11/07/2024 4:36 PM EDT [facility] Calcium 9.0 8.6 - 10.5 mg/dL 11/07/2024 4:36 PM EDT [facility] Total Protein 6.6 6.0 - 8.5 g/dL 11/07/2024 4:36 PM EDT [facility] Albumin 3.8 3.5 - 5.2 g/dL 11/07/2024 4:36 PM EDT [facility] ALT (SGPT) 20 1 - 41 U/L 11/07/2024 4:36 PM EDT [facility] AST (SGOT) 18 1 - 40 U/L 11/07/2024 4:36 PM EDT [facility] Alkaline Phosphatase 50 39 - 117 U/L 11/07/2024 4:36 PM EDT [facility] Total Bilirubin 0.4 0.0 - 1.2 mg/dL 11/07/2024 4:36 PM EDT [facility] Globulin 2.8 gm/dL 11/07/2024 4:36 PM EDT [facility] Comment:Calculated Result A/G Ratio 1.4 g/dL 11/07/2024 4:36 PM EDT [facility] BUN/Creatinine Ratio 9.0 7.0 - 25.0 11/07/2024 4:36 PM EDT [facility] Anion Gap 12.0 5.0 - 15.0 mmol/L 11/07/2024 4:36 PM EDT [facility] eGFR 18.1(L) >60.0 mL/min/1.7 3 11/07/2024 4:36 PM T [facility] Blood Line / Unknown 11/07/2024 3: 08 PM EDT 11/07/2024 3:15 PM EDT [facility] - 11/07/2024 4:36 PM EDT GFR [...] race as a factor us Dina Sanchez CHECK WRITER LAB BLOOD ORDERABLES Final Result [facility]
[address] [place] [address], * (ABNORMAL) CBC Auto Differential (11/07/2024 3:08 PM EDT) WBC 12.28(H) 3.40 - 10.80 10*3/mm3 11/07/2024 3:27 PM EDT [facility] RBC 5.00 4.14 - 5.80 10*6/mm3 11/07/2024 3:27 PM EDT [facility] Hemoglobin 14.4 13.0 - 17.7 g/dL 11/07/2024 3:27 PM EDT [facility] Hematocrit 44.3 37.5 - 51.0 % 11/07/2024 3:27 PM EDT [facility] MCV 88.6 79.0 - 97.0 fL 11/07/2024 3:27 PM EDT [facility] MCH 28.8 26.6 - 33.0 pg 11/07/2024 3:27 PM EDT [facility] MCHC 32.5 31.5 - 35.7 g/dL 11/07/2024 3:27 PM EDT [facility] RDW 15.4 12.3 - 15.4 % 11/07/2024 3:27 PM EDT [facility] RDW-SD 50.0 37.0 - 54.0 fl 11/07/2024 3:27 PM EDT [facility] MPV 11.4 6.0 - 12.0 fL 11/07/2024 3:27 PM EDT [facility] Platelets 145 140 - 450 10*3/mm3 11/07/2024 3:27 PM EDT [facility] Neutrophil % 75.6 42.7 - 76.0 % 11/07/2024 3:27 PM EDT [facility] Lymphocyte % 18.0(L) 19.6 - 45.3 % 11/07/2024 3:27 PM EDT [facility] Monocyte % 5.5 5.0 - 12.0 % 11/07/2024 3:27 PM EDT [facility] Eosinophil % 0.3 0.3 - 6.2 % 11/07/2024 3:27 PM EDT [facility] Basophil % 0.2 0.0 - 1.5 % 11/07/2024 3:27 PM EDT [facility] Immature Grans % 0.4 0.0 - 0.5 % 11/07/2024 3:27 PM EDT [facility] Neutrophils, Absolute 9.28(H) 1.70 - 7.00 10*3/mm3 11/07/2024 3:27 PM EDT [facility] Lymphocytes, Absolute 2.21 0.70 - 3.10 10*3/mm3 11/07/2024 3:27 PM EDT [facility] Monocytes, Absolute 0.67 0.10 - 0.90 10*3/mm3 11/07/2024 3:27 PM EDT [facility] Eosinophils, Absolute 0.04 0.00 - 0.40 10*3/mm3 11/07/2024 3:27 PM EDT [facility] Basophils, Absolute 0.03 0.00 - 0.20 10*3/mm3 11/07/2024 3:27 PM EDT [facility] Immature Grans, Absolute 0.05 0.00 - 0.05 10*3/mm3 11/07/2024 3:27 PM EDT [facility] nRBC 0.0 0.0 - 0.2 /100 WBC 11/07/2024 3:27 PM EDT [facility] Blood Line / Unknown 11/07/2024 3: 08 PM EDT 11/07/2024 3:15 PM EDT us Dina Sanchez CHECK WRITER LAB BLOOD ORDERABLES Final Result [facility]
[address] [place] [address], * BNP (11/07/2024 3:08 PM EDT) [facility] Signature proBNP 74.0 0.0 - 900.0 pg/mL 11/07/2024 4:30 PM EDT [facility] Blood Line / Unknown 11/07/2024 3: 08 PM EDT 11/07/2024 3:15 PM EDT Narrative [facility] - 11/07/2024 4:30 PM EDT [...] >1800 Cai 300-1800 Negative <300 Dina Sanchez CHECK WRITER LAB BLOOD ORDERABLES Final Result [facility]
[address] [place] [address], * XR Chest 1 View (11/07/2024 3:02 PM EDT) Anatomical Region Laterality Modality Body N/A Radiographic Apurva ging 11/07/2024 3:12 PM EDT Impressions 11/07/2024 3:13 PM EDT Impression: No radiographic evidence of acute cardiopulmonary abnormality. Electronically Signed: Florian Luo MD 11/07/2024 3:13 PM EDT Workstation ID: [id number] Narrative 11/07/2024 3:13 PM EDT XR CHEST [...] MD 11/07/2024 3:13 PM EDT Workstation ID: [id number] Dina Sanchez APRN IMG DIAGNOSTIC IMAGING ORDE RABLES Final Result * (ABNORMAL) Hemoglobin A1c (11/07/2024 3:00 PM EDT) Hemoglobin A1C 5.89(H) 4.80 - 5.60 % 11/07/2024 5:36 PM EDT [facility] Blood Line / Unknown 11/07/2024 3: 00 PM EDT 11/07/2024 3:04 PM EDT Narrative [facility] - 11/07/2024 5:36 PM EDT Hemoglobin A1C Ranges: Increased Risk for Diabetes 5.7% to 6.4% Diabetes >= 6.5% Diabetic Goal < 7.0% Dina Sanchez APRN LAB BLOOD ORDERABLES Final Result [facility]
[address] [place] [address], * CT Outside Head (11/07/2024 2:56 PM [...] POC Glucose Once (11/07/2024 2:38 PM EDT) [facility] Signature Glucose 50(L) 70 - 130 mg/dL 11/07/2024 2:40 PM EDT [facility] Comment:Serial Number: [id number] Blood 11/07/2024 2:38 PM EDT 11/07/2024 2:40 PM EDT us Alexsander Branch MD POINT OF CARE TEST ORDERAB LES Final Result [facility]
[address] [place] [address], [place] [phone] documented in this encounter Visit Diagnoses Diagnosis Syncope- Primary Syncope and collapse Syncope and collapse Type 2 diabetes mellitus Tobacco use CAD Coronary atherosclerosis of unspecified type of vessel, [place] or graft GERD Esophageal reflux Bipolar disorder [...] Every 8 Hours Scheduled, First dose on [facility] 11/09/24 at 1400, (RBINDA) Given 11/11/2024 6:05 AM EDT 400 mg [...] for injection by adding 1 mL of yarn worker-supplied sterile diluent or sterile water for injection [...] Hours, First dose (after last modification) on [facility] 11/09/24 at 1530, For 3 doses, Caution: [...] Consider requesting a dose edit, if needed. ([facility]) Given 11/11/2024 8:42 AM EDT 10 Units Right Lower Abdomen Given 11/10/2024 8:03 AM EDT 10 Units Ri ght Lower Abdomen Given 11/09/2024 8:17 AM EDT 10 Units Ri ght Arm Insulin Lispro (humaLOG) injection 2-9 Units 2-9 Units, Subcutaneous, 4 Times Daily Before Meals & Nightly, First dose on Mon11/07/24 at 1845, Correction Insulin - Moderate Dose [...] mg/dL - 9 units & Call Provider ([facility]) Caution: Look alike/sound alike drug alert([facility]) Given 11/10/2024 9:47 PM EDT 2 Units [...] Nare, 2 Times Daily, First dose on [facility] 11/07/24 at 1530, For 5 days, Begin on day 1 of ICU admission and continue for 5 days, even if patient transferred out of critical care. MUPIROCIN APPLICATION: 1. Place patient's bed at 30 degrees, if tolerated. 2. Wash your hands with warm soapy water or use hand agricultural commodities inspector. 3. Open the tube of mupirocin 2%. [...] to 4.31-64.69 mL/hr), Intravenous, Titrated, Starting on Mon11/07/24 at 1415, Initiate infusion at 0.02 mcg/kg/min [...] solution - ADS Override Pull Starting on Mon11/07/24 at 1413, For 1 dose, Created by [...] injection 40 mg 40 mg, Intravenous, Every Animal Rides Manager, First dose on Mon11/08/24 at 0600, Dilute [...] mL/hr, Administer over 1 Hours, Once, On [facility] 11/07/24 at 2230, For 1 dose New Bag 11/07/2024 10:26 PM EDT 500 mL 500 mL/hr sodium chloride 0.9 % flush 10 mL 10 mL, Intravenous, Every 12 Hours Scheduled, First dose on [facility] 11/07/24 at 2100 Given 11/07/2024 8:29 PM EDT 10 mL sodium chloride 0.9 % flush 10 mL 10 mL, Intravenous, As Needed, Line Care, Starting on [facility] 11/07/24 at 1432 sodium chloride 0.9 % infusion 75 mL/hr, Intravenous, Continuous, Starting on [facility] 11/07/24 at 2230, For 2 days New Bag 11/09/2024 7:46 AM EDT 75 mL/hr 75 mL/hr New Bag 11/08/2024 6:18 PM EDT 75 mL/hr 75 mL/hr New Bag 11/08/2024 4:10 AM EDT 75 mL/hr 75 mL/hr sodium phosphates 10 mmol in sodium chloride 0.9 % 250 mL IVPB 10 mmol, Intravenous, at 62.5 mL/hr, Administer over 4 Hours, Once, On Mon11/09/24 at 0715, For 1 dose New Bag [...] at 1700, For 1 dose, Group 2 ([place]) Hazardous Drug - Reproductive Risk Only - [...] Keep refrigerated. 0738 (Given - Provider: Latisha Witt, DATA KEYER)1953 (Given - Provider: Erica Plascencia, KAM)2129 (Canceled Entry - Provider: Erica Plascencia RRT) 0922 (Given - Provider: Shyanne Tripp, KAM)2009 (Given - Provider: Lissa Lara, DATA KEYER)2129 (Canceled Entry - Provider: Lissa Lara RRT) 0738 (Given - Provider: Marlen Conard, KAM) aspirin chewable tablet 81 mg 81 mg, [...] CPOT 5-8 0818 (Given - Provider: Garland Dumont, RN) 0803 (Given - Provider: Gerber Marcial, RN) 0841 (Given - Provider: Gerber Marcial, YASIR) budesonide (PULMICORT) nebulizer solution 0.5 mg 0.5 mg, Nebulization, 2 Times Daily - RT, First dose on 11/08/24 at 0030, Include Respiratory Treatment Education Do not shake. Protect from light. 0739 (Given - Provider: Latisha Witt, KAM)1953 (Given - Provider: Erica Plascencia, DATA KEYER)2129 (Canceled Entry - Provider: Erica Plascencia RRT) 09 (Given - Provider: Shyanne Tripp, KAM)2019 (Given - Provider: Lissa Lara, KAM)2129 (Canceled Entry - Provider: Lissa Lara RRT) 0739 (Given - Provider: Marlen Conrad, KAM) gabapentin (NEURONTIN) capsule 400 mg 400 mg, Oral, Every 8 Hours Scheduled, First dose on 11/09/24 at 1400, (BRINDA) 1404 (Given - Provider: Garland Dumont, YASIR)2028 (Given - Provider: Becca Barrientos RN)2200 (Canceled Entry - Provider: Becca Barrientos RN) 0558 (Given - Provider: Becca Barrientos RN)151 (Given - Provider: Gerber Marcial RN)214 (Given - Provider: Carmina Gilman RN) 0605 (Given - Provider: Carmina Gilman RN) heparin (porcine) 5000 UNIT/ML injection 5,000 Units 5,000 Units, Subcutaneous, Every 8 Hours Scheduled, First dose on [facility] 11/07/24 at 2230, Indications: VTE Prophylaxis 0556 (Given - Provider: Sofie Barrientos RN)1404 (Given - Provider: Garland Dumont RN)2027 (Given - Provider: Becca Barrientos RN)2333 (Canceled Entry - Provider: Becca Barrientos RN) 0558 (Given - Provider: Becca Barrientos RN)1510 (Given - Provider: Gerber Marcial RN)214 (Given - Provider: Carmina M Dunavan, RN) 0605 (Given - Provider: Carmina Gilman, RN) Hydrocortisone Sod Suc (PF) (Solu-CORTEF) injection 50 mg (CANCELED) 50 mg, Intravenous, Every 6 Hours, First dose on Mon11/08/24 at 0000, For 3 days, Caution: Look alike/sound alike drug alert 0556 (Given - Provider: Sofie Barrientos, RN)1152 (Given - Provider: Garland Dumont RN) Hydrocortisone Sod Suc (PF) (Solu-CORTEF) injection 50 [...] Consider requesting a dose edit, if needed. ([facility]) 0817 (Given - Provider: Garland Dumont RN) [...] mg/dL - 9 units & Call Provider ([facility]) Caution: Look alike/sound alike drug alert([facility]) 0817 (Given - Provider: Garland Dumont RN)1231 (Given - Provider: Garland Dumont RN)173 (Given - Provider: Vivi Carmona RN - Comment: bs 162)2026 (Given - Provider: Becca Barrientos, YASIR) 0804 (Not Given - Provider: Gerber Marcial RN - Reason: Order parameters not met)1234 (Given - Provider: Gerber Marcial, YASIR)1736 (Given - Provider: Gerber Marcial, YASIR)2146 (Given - Provider: Carmina Gilman, YASIR) 0842 (Not Given - Provider: Gerber Marcial RN - Reason: Order parameters not met) ipratropium (ATROVENT) nebulizer solution 0.5 mg 0.5 mg, Nebulization, 4 Times Daily - RT, First dose on Mon11/07/24 at 1815, Include Respiratory Treatment Education (SP) 0739 (Given - Provider: Latisha Witt, DATA KEYER)1302 (Given - Provider: Latisha Witt DATA KEYER)1523 (Given - Provider: Latisha Witt DATA KEYER)1630 (Canceled Entry - Provider: Latisha Witt DATA KEYER - Comment: previously given)195 (Given - Provider: Erica Plascencia, DATA KEYER) 0915 (Given - Provider: Shyanne Tripp RRT)1327 (Not Given - Provider: Shyanne Tripp RRT - Reason: Patient/family refused)1547 (Not Given - Provider: Ceci Reese DATA KEYER - Reason: Patient/family refused)2009 (Given - Provider: Lissa Lara RRT) 0739 (Not Given - Provider: Marlen Conrad RRT - Reason: Contraindicated) lamoTRIgine (LaMICtal) tablet 100 mg 100 mg, Oral, 2 Times Daily, First dose on Mon11/08/24 at 0030, Caution: Look alike/sound alike drug alert 0818 (Given - Provider: Garland Dumont RN)2027 (Given - Provider: Becca Barrientos RN) 0803 (Given - Provider: Gerber Marcial, YASIR)214 (Given - Provider: Carmina Gilman, YASIR) 0842 (Given - Provider: Gerber Marcial RN) mupirocin (BACTROBAN) 2 % nasal ointment 1 Application 1 Application, Each Nare, 2 Times Daily, First dose on [facility] 11/07/24 at 1530, For 5 days, Begin on day 1 of ICU admission and continue for 5 days, even if patient transferred out of critical care. MUPIROCIN APPLICATION: 1. Place patient's bed at 30 degrees, if tolerated. 2. Wash your hands with warm soapy water or use hand agricultural commodities inspector. 3. Open the tube of mupirocin 2%. [...] together and massage gently for 60 seconds. ([facility]) 0818 (Given - Provider: Garland Dumont RN)2027 (Given - Provider: Becca Barrientos RN) 0900 (Canceled Entry - Provider: Gerber Marcial RN)2147 (Given - Provider: Carmina Gilman RN) 0843 (Canceled Entry - Provider: Gerber Marcial [...] RN) 0805 (Medication Removed - Provider: Gerber Marcial RN)0810 (Medication Applied - Provider: Gerber Marcial RN) 0842 (Not Given - Provider: Gerber Marcial RN - Reason: Patient/family refused)0843 (Medication Removed - Provider: Gerber Marcial RN) pantoprazole (PROTONIX) EC tablet 40 mg 40 mg, Oral, Every Morning Before Breakfast, First dose on Mon11/09/24 at 0730, Do not crush or chew the capsules or tablets. The drug may not work as designed if the capsule or tablet is crushed or chewed. Swallow whole. Swallow whole; do not crush, split, or chew. 08 (Given - Provider: Garland Dumont RN) 08 (Given - Provider: Gerber Marcial, RN) 0841 (Given - Provider: Gerber Marcial, YASIR) piperacillin-tazobactam (ZOSYN) 4.5 g IVPB in 100 mL NS MBP (CD) 4.5 g, Intravenous, Administer over 4 Hours, Every 8 Hours, First dose (after last modification) on Mon11/08/24 at 1000, For 14 doses, Indications: Empiric 0218 (New Bag - Provider: Sofie Barrientos, RN)0943 (New Bag - Provider: Garland Dumont, RN)1733 (New Bag - Provider: Vivi Carmona RN) 0245 (New Bag - Provider: Becca Barrientos RN)1100 (New Bag - Provider: Gerber Marcial, YASIR)1811 (New Bag - Provider: Gerber Marcial, YASIR) 0205 (New Bag - Provider: Carmina Gilman, YASIR)1000 (Due) prasugrel (EFFIENT) tablet 10 mg 10 mg, Oral, Daily, First dose on Mon11/08/24 at 0900, May crush tablet and mix in water and administer immediately via a gastric tube. DO NOT ADMINISTER if patient has a history of stroke or TIA - contact prescriber. 08 (Given - Provider: Garland Dumont RN) 08 [...] Education 0739 (Given - Provider: Latisha Witt, DATA KEYER) 09 (Given - Provider: Shyanne Tripp, KAM) 0739 (Given - Provider: Marlen Conrad, DATA KEYER) rosuvastatin (CRESTOR) tablet 10 mg 10 mg, Oral, Daily, First dose on Mon11/08/24 at 0900, Avoid grapefruit juice. 0818 (Given - Provider: Garland Dumont RN) 0803 (Given - Provider: Gerber Marcial, YASIR) 0841 (Given - Provider: Gerber Marcial, YASIR) sodium phosphates 10 mmol in sodium chloride 0.9 % 250 mL IVPB (COMPLETED) 10 mmol, Intravenous, at 62.5 mL/hr, Administer over 4 Hours, Once, On 11/09/24 at 0715, For 1 dose 0825 (New Bag - Provider: Garland Dumont, YASIR) vilazodone (VIIBRYD) tablet 40 mg 40 mg, Oral, Daily, First dose on 11/09/24 at 1130, Take with food 1153 (Given - Provider: Garland Dumont, RN) 0803 (Given - Provider: Gerber Marcial, YASIR) 0841 (Given - Provider: Gerber Marcial, YASIR) Continuous Medication Order 11/09/2024 11/10/2024 11/11/2024 sodium chloride 0.9 % infusion (CANCELED) 75 mL/hr, Intravenous, Continuous, Starting on [facility] 11/07/24 at 2230, For 2 days 0746 (New Bag - Provider: Garland Dumont RN)1437 (Stopped - Provider: Garland Dumont, RN) PRN Medication Order 11/09/2024 11/10/2024 11/11/2024 [...] for injection by adding 1 mL of yarn worker-supplied sterile diluent or sterile water for injection to a vial containing 1 mg of the drug, to provide solutions containing 1 mg/mL. Shake vial gently to dissolve. 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
--- NOTE | 2024-11-15 11:22 | XR_ITS ---
FINAL REPORT TECHNIQUE: Chest PA & Lateral CLINICAL HISTORY: ACUTE PNEUMONIA, SOA COMPARISON: 11/07/2024 FINDINGS: 2 views of the chest were performed. Cervical hardware is present from a prior fusion. The heart size is at the upper limits of normal in size. The mediastinum is within normal limits. There is no acute cardiopulmonary process. There are mild chronic changes in the lung gutierrez bilaterally, stable. There are no pleural effusions. There is no pneumothorax. The bony thorax appears intact. IMPRESSION: No acute cardiopulmonary process. Reviewed, Interpreted and Dictated by Tereso Guillen MD Transcribed by Gladys Bai Authenticated and [facility]
--- OUTSIDE RECORDS SUMMARY | 2024-11-15 11:29 | XMS_ITS | Encounter Summary ---
[facility] Address [address] [place] [address] Care Team Providers Care Supervisor Dog License Officer Name Role Phone Provider, No Known Primary Care Provider Unavail able Encounter Details Date Type Department Care Team (Latest Contact Info) Description 11/07/2024 Travel Social History Tobacco Use Types Packs/Day Years Used Date Smoking Tobacco: Never Assessed AUDIT-C Answer Date Recorded Q1: How often [...] or training? Not on file Preferred Language Chinese 11/08/2024 Sex and Gender Information Value Date Recorded Sex Assigned at Not on file Legal Sex Male 11:35 AM EDT Gender Identity Not on file Sexual Orientation Not on file documented as of this encounter Plan of Treatment Not on file documented as of this encounter Visit Diagnoses Not on filedocumented in this encounter Care Teams Supervisor Dog License Officer Relationship Specialty Start Date End Date Provider, [place] [address] PCP - General 11/07/24 documented as of this encounter
--- OUTSIDE RECORDS SUMMARY | 2024-11-15 11:29 | XMS_ITS | Clinical Summary ---
Author Organization [facility] Address [address] [place] [address] Care Team Providers Care Bottom Cager Name Role Phone Provider, No Known Primary Care Provider Unavail able Allergies Active Allergy Reactions Criticality Noted Date Comments Hydrocodone-Acetaminophen Hives Medium 11/07/2024 Medications metFORMIN (GLUCOPHAGE) 500 MG tablet Take 1 tablet by mouth 2 (Two) Times a Day With Meals. Two tablets per dose BID Active omeprazole (priLOSEC) 40 MG capsule Take 1 capsule by mouth Daily. Active LORazepam (ATIVAN) 0.5 MG tablet Take 1 tablet by mouth Every 8 (Eight) Hours As Needed for Anxiety. Active rosuvastatin (CRESTOR) 20 MG tablet Take 1 tablet by mouth Daily. Active lamoTRIgine (LaMICtal) 100 MG tablet Take 2 tablets by mouth 2 (Two) Times a Day. Active vilazodone (VIIBRYD) 40 MG tablet tablet Take 1 tablet by mouth Daily. Active gabapentin (NEURONTIN) 800 MG tablet Take 1 tablet by mouth 3 (Three) Times a Day. Active QUEtiapine XR (SEROquel XR) 400 MG 24 hr tablet Take 1 tablet by mouth Every Night. Active methocarbamol (ROBAXIN) 750 MG tablet Take 1 tablet by mouth 2 (Two) Times a Day. With food 11/12/19 Discontinue d(Stop Taking at Discharge) glimepiride (AMARYL) 4 MG tablet Take 1 tablet by mouth Daily. 11/12/19 Discontinue d(Stop Taking at Discharge) spironolactone (ALDACTONE) 50 MG tablet Take 1 tablet by mouth Daily. 11/12/19 Discontinue d(Stop Taking at Discharge) losartan (COZAAR) 100 MG tablet Take 1 tablet by mouth Daily. 11/12/19 Discontinue d(Stop Taking at Discharge) furosemide (LASIX) 40 MG tablet Take 1 tablet by mouth 2 (Two) Times a Day. 11/12/19 Discontinue d(Stop Taking at Discharge) metoprolol succinate XL (TOPROL-XL) 50 MG 24 hr tablet Take 1 tablet by mouth Daily. 11/12/19 Discontinue d(Stop Taking at Discharge) potassium chloride 10 MEQ CR tablet Take 1 tablet by mouth Daily. 11/12/19 Discontinue d(Stop Taking at Discharge) amoxicillin-cla vulanate (AUGMENTIN) 875-125 MG per tablet Take 1 tablet by mouth 2 (Two) Times a Day for 5 doses. 5 tablet 11/11/2024 9:59 AM EDT 11/15/19 Active Problems Problem Noted Date Diagnosed Date Type 2 diabetes mellitus 11/07/2024 Tobacco use 11/07/2024 CAD 11/07/2024 GERD 11/07/2024 Bipolar disorder 11/07/2024 CKD 11/07/2024 COPD 11/07/2024 Resolved Problems Problem Noted Date Diagnosed Date Resolved Date Syncope and collapse 11/07/2024 025 Syncope 11/07/2024 11/11/2024 Encounters Date Type Department Care Team Description 11/11/2024 Readmission Management [facility] NURSE CALL [facility] [address] [place] [phone] Marsha Bullock RN 11/07/2024 2:10 PM EDT - 11/11/2024 11:27 AM EDT Hospital Encounter [facility] [address] [place] [id number] Alexsander Branch MD Mueller, Joseph C, MD Sloan, Walker E, MD Discharge Disposition: Home or Self Care 11/07/2024 Travel from Last 3 Months Social History Tobacco Use Types Packs/Day Years [...] or training? Not on file Preferred Language Kosovan 11/08/2024 Sex and Gender Information Value Date [...] Mass Index 37.12 11/08/2024 3:45 PM EDT Plan of Treatment Health Maintenance Due Date Last Done Comments ANNUAL WELLNESS VISIT 1966 HEPATITIS C SCREENING 1966 DIABETIC EYE EXAM 1976 DIABETIC FOOT EXAM 1976 URINE MICROALBUMIN-CREATININE RATIO (uACR) 1976 Hepatitis B (1 of 3 - 19+ 3-dose series) 1985 TDAP/TD VACCINES (2 - Tdap) 05/23/2006 05/23/1996 COLOGUARD 11/30/2011 COLON CANCER SCREENING 5 YEAR SIGMOIDOSCOPY 11/30/2011 COLONOSCOPY 11/30/2011 COLORECTAL CANCER SCREENING 11/30/2011 CT COLONOGRAPHY 11/30/2011 FECAL OCCULT BLOOD TEST 11/30/2011 FIT Testing (1 year) 11/30/2011 ZOSTER VACCINE (1 of 2) 2016 COVID-19 Vaccine (1 - 2023- season) 2023 Pneumococcal Vaccine 50+ (2 of 2 - PCV) 01/13/2024 1 INFLUENZA VACCINE 12/18/2024 01/22/2019 HEMOGLOBIN A1C 05/10/2025 11/07/2024 Procedures Procedure Name Priority Date/Time Associated Diagnosis [...] GLUCOSE FINGERSTICK Routine 11/09/2024 7:21 AM EDT PHOSPHORUS Routine 11/09/2024 3:21 AM EDT MAGNESIUM Routine 11/09/2024 3:21 AM EDT CBC (NO DIFF) Routine 11/09/2024 3:21 AM EDT COMPREHENSIVE METABOLIC PANEL Routine 11/09/2024 3:21 AM EDT POCT GLUCOSE FINGERSTICK Routine 11/08/2024 7:55 PM EDT RESPIRATORY PANEL PCR W/ COVID-19 (SARS-COV-2), [employer] SWAB IN UTM/VTP, 2 HR TAT Routine [...] GLUCOSE FINGERSTICK Routine 11/08/2024 7:18 AM EDT PHOSPHORUS Routine 11/08/2024 3:10 AM EDT MAGNESIUM Routine 11/08/2024 3:10 AM EDT COMPREHENSIVE METABOLIC PANEL Routine 11/08/2024 3:10 AM EDT CBC WITH AUTO DIFFERENTIAL Routine 11/08/2024 3:10 AM EDT LACTIC ACID, REFLEX STAT 11/08/2024 1 2:04 AM EDT WOUND OSTOMY EVAL AND TREAT Routine 11/07/2024 10:29 PM EDT LACTIC ACID, REFLEX STAT 11/07/2024 8 :52 PM EDT POCT GLUCOSE FINGERSTICK Timed 11/07/2024 8:02 PM EDT POCT GLUCOSE FINGERSTICK Timed 11/07/2024 7:09 PM EDT UREA NITROGEN, URINE Routine 11/07/2024 6:12 PM EDT CREATININE URINE RANDOM (KIDNEY FUNCTION) GFR COMPONENT Routine 11/07/2024 6:12 PM EDT SODIUM, URINE, RANDOM Routine 11/07/2024 6:12 PM EDT URINALYSIS, MICROSCOPIC ONLY Routine 11/07/2024 6:12 PM EDT FENTANYL, URINE STAT 11/07/2024 6:12 PM EDT URINALYSIS W/ CULTURE IF INDICATED STAT 11/07/2024 6:12 PM EDT URINE DRUG SCREEN STAT 11/07/2024 6:1 2 PM EDT POCT GLUCOSE FINGERSTICK Timed 11/07/2024 6:07 PM EDT POCT GLUCOSE FINGERSTICK Timed 11/07/2024 5:37 PM EDT RESPIRATORY CULTURE Routine 11/07/2024 5 :31 PM EDT LACTIC ACID, REFLEX STAT 11/07/2024 5 :30 PM EDT HIGH SENSITIVITIY TROPONIN T 1HR Timed 11/07/2024 5:29 PM EDT ALDOSTERONE Routine 11/07/2024 5:29 PM EDT METANEPHRINES, FRAC. FREE, PLASMA Routine 11/07/2024 5:29 PM EDT BLOOD CULTURE [...] GLUCOSE FINGERSTICK Routine 11/07/2024 3:10 PM EDT CORTISOL STAT 11/07/2024 3:08 PM EDT TROPONIN STAT 11/07/2024 3:08 PM EDT PROTIME-INR STAT 11/07/2024 3:08 PM EDT PROCALCITONIN STAT 11/07/2024 3:08 PM EDT PHOSPHORUS STAT 11/07/2024 3:08 PM EDT MAGNESIUM STAT 11/07/2024 3:08 PM EDT LACTIC ACID, PLASMA STAT 11/07/2024 3 :08 PM EDT COMPREHENSIVE METABOLIC PANEL STAT 11/07/2024 3:08 PM EDT CBC WITH AUTO DIFFERENTIAL STAT 11/07/2024 3:08 PM EDT B-TYPE NATRIURETIC PEPTIDE STAT 11/07/2024 3:08 PM EDT XR CHEST 1 VW STAT 11/07/2024 3:02 PM EDT HEMOGLOBIN A1C STAT 11/07/2024 3:[address] OUTSIDE HEAD Routine 11/07/2024 2:[address] OUTSIDE NECK Routine 11/07/2024 2:56 PM EDT XR OUTSIDE CHEST Routine 11/07/2024 2:55 PM EDT POCT GLUCOSE FINGERSTICK Routine 11/07/2024 2:38 PM EDT from Last 3 Months Results * POC Glucose 4x Daily Before Meals & at Bedtime (11/11/2024 7:55 AM EDT) Only the most recent of21 resultswithin the time period is included. Glucose 72 70 - 130 mg/dL 11/11/2024 8:01 AM EDT [facility] Comment:Serial Number: [id number] Blood 11/11/2024 7:55 AM EDT 11/11/2024 8:01 AM EDT Israel Jimenez MD POINT OF CARE TEST ORDERABLE S Final Result [facility]
[address] [place] [address], * (ABNORMAL) CBC (No Diff) (11/11/2024 5:14 AM EDT) Only the most recent of3 resultswithin the time period is included. WBC 7.92 3.40 - 10.80 10*3/mm3 11/11/2024 5:48 AM EDT [facility] RBC 4.69 4.14 - 5.80 10*6/mm3 11/11/2024 5:48 AM EDT [facility] Hemoglobin 13.4 13.0 - 17.7 g/dL 11/11/2024 5:48 AM EDT [facility] Hematocrit 42.9 37.5 - 51.0 % 11/11/2024 5:48 AM EDT [facility] MCV 91.5 79.0 - 97.0 fL 11/11/2024 5:48 AM EDT [facility] MCH 28.6 26.6 - 33.0 pg 11/11/2024 5:48 AM EDT [facility] MCHC 31.2(L) 31.5 - 35.7 g/dL 11/11/2024 5:48 AM EDT [facility] RDW 14.9 12.3 - 15.4 % 11/11/2024 5:48 AM EDT [facility] RDW-SD 50.1 37.0 - 54.0 fl 11/11/2024 5:48 AM EDT [facility] MPV 11.7 6.0 - 12.0 fL 11/11/2024 5:48 AM EDT [facility] Platelets 111(L) 140 - 450 10*3/mm3 11/11/2024 5:48 AM EDT [facility] Blood Venipuncture / Unknown 11/11/2024 5:14 AM EDT 11/11/2024 5:36 AM EDT us Israel Jimenez MD LAB BLOOD ORDERABLES Final R esult [facility]
[address] [place] [address], * (ABNORMAL) Comprehensive Metabolic Panel (11/11/2024 5:14 AM EDT) Only the most recent of5 resultswithin the time period is included. Glucose 102(H) 65 - 99 mg/dL 11/11/2024 6:03 AM EDT [facility] BUN 19.4 6.0 - 20.0 mg/dL 11/11/2024 6:03 AM EDT [facility] Creatinine 1.38(H) 0.76 - 1.27 mg/dL 11/11/2024 6:03 AM EDT [facility] Sodium 142 136 - 145 mmol/L 11/11/2024 6:03 AM EDT [facility] Potassium 4.1 3.5 - 5.2 mmol/L 11/11/2024 6:03 AM EDT [facility] Comment:Slight hemolysis det ected by analyzer. Result may be falsely elevated. Chloride 104 98 - 107 mmol/L 11/11/2024 6:03 AM EDT [facility] CO2 28.0 22.0 - 29.0 mmol/L 11/11/2024 6:03 AM [facility] Calcium 8.7 8.6 - 10.5 mg/dL 11/11/2024 6:03 AM [facility] Total Protein 6.0 6.0 - 8.5 g/dL 11/11/2024 6:03 AM [facility] Albumin 3.5 3.5 - 5.2 g/dL 11/11/2024 6:03 AM [facility] ALT (SGPT) 41 1 - 41 U/L 11/11/2024 6:03 AM [facility] AST (SGOT) 35 1 - 40 U/L 11/11/2024 6:03 AM [facility] Alkaline Phosphatase 42 39 - 117 U/L 11/11/2024 6:03 AM [facility] Total Bilirubin 0.3 0.0 - 1.2 mg/dL 11/11/2024 6:03 AM [facility] Globulin 2.5 gm/dL 11/11/2024 6:03 AM [facility] Comment:Calculated Result A/G Ratio 1.4 g/dL 11/11/2024 6:03 AM [facility] BUN/Creatinine Ratio 14.1 7.0 - 25.0 11/11/2024 6:03 AM [facility] Anion Gap 10.0 5.0 - 15.0 mmol/L 11/11/2024 6:03 AM [facility] eGFR 59.6(L) >60.0 mL/min/1.7 3 11/11/2024 6:03 AM [facility] Blood Venipuncture / Unknown 11/11/2024 5:14 AM EDT 11/11/2024 5:36 AM [facility] - 11/11/2024 6:03 AM EDT GFR [...] MD LAB BLOOD ORDERABLES Final R esult [facility]
[address] [place] [address], * Telemetry Scan (11/10/2024 7:42 PM EDT) Only the most recent of3 resultswithin the time period is included. [facility] ECG ORDERABLES Final Result * XR Chest 1 View (11/10/2024 3:00 AM EDT) Only the most recent of3 resultswithin the time period is included. Anatomical Region Laterality Modality Body N/A Radiographic Apurva ging 11/10/2024 9:30 AM EDT Impressions 11/10/2024 9:32 AM EDT Impression: 1.Bibasilar densities which could relate to atelectasis. A left pleural effusion not excluded. 2.Cardiomegaly. Some vascular congestion not excluded. Electronically Signed: Elliott Lopez MD 11/10/2024 9:32 AM EDT Workstation ID: [id number] Narrative 11/10/2024 9:32 AM EDT XR CHEST [...] MD 11/10/2024 9:32 AM EDT Workstation ID: [id number] Israel Jimenez MD IMG DIAGNOSTIC IMAGING ORDER NAYE Final Result * (ABNORMAL) Phosphorus (11/09/2024 3:21 AM EDT) Only the most recent of3 resultswithin the time period is included. Phosphorus 2.0(L) 2.5 - 4.5 mg/dL 11/09/2024 5:17 AM EDT [facility] Blood Venipuncture / Unknown 11/09/2024 3:21 AM EDT 11/09/2024 4:14 AM EDT Israel Jimenez MD LAB BLOOD ORDERABLES Final R esult [facility]
[address] [place] [address], * Magnesium (11/09/2024 3:21 AM EDT) Only the most recent of3 resultswithin the time period is included. Magnesium 2.0 1.6 - 2.6 mg/dL 11/09/2024 5:07 AM EDT [facility] Blood Venipuncture / Unknown 11/09/2024 3:21 AM EDT 11/09/2024 4:14 AM EDT Israel Jimenez MD LAB BLOOD ORDERABLES Final R esult [facility]
[address] [place] [address], * Respiratory Panel PCR w/COVID-19(SARS-CoV-2) WALT/RADHA/YANI/PAD/COR/ANISHA In-House, [employer] WORK[employer] Swab in UTM/VTM, 2 HR TAT - Swab, Nasopharynx (11/08/2024 6:31 PM EDT) ADENOVIRUS, PCR Not Detected Not Detected BIOFIRE TORCH 11/08/2024 7:54 PM EDT [facility] Coronavirus 229E Not Detected Not Detected BIOFIRE TORCH 11/08/2024 7:54 PM EDT [facility] Coronavirus HKU1 Not Detected Not Detected BIOFIRE TORCH 11/08/2024 7:54 PM EDT [facility] Coronavirus NL63 Not Detected Not Detected BIOFIRE TORCH 11/08/2024 7:54 PM EDT [facility] Coronavirus OC43 Not Detected Not Detected BIOFIRE TORCH 11/08/2024 7:54 PM EDT [facility] COVID19 Not Detected Not Detected - Ref. Range BIOFIRE TORCH 11/08/2024 7:54 PM EDT [facility] Human Metapneumovirus Not Detected Not Detected BIOFIRE TORCH 11/08/2024 7:54 PM EDT [facility] Human Rhinovirus/Enterov irus Not Detected Not Detected BIOFIRE TORCH 11/08/2024 7:54 PM EDT [facility] Influenza A PCR Not Detected Not Detected BIOFIRE TORCH 11/08/2024 7:54 PM EDT [facility] Influenza B PCR Not Detected Not Detected BIOFIRE TORCH 11/08/2024 7:54 PM EDT [facility] Parainfluenza Virus 1 Not Detected Not Detected BIOFIRE TORCH 11/08/2024 7:54 PM EDT [facility] Parainfluenza Virus 2 Not Detected Not Detected BIOFIRE TORCH 11/08/2024 7:54 PM EDT [facility] Parainfluenza Virus 3 Not Detected Not Detected BIOFIRE TOR 11/08/2024 7:54 PM EDT [facility] Parainfluenza Virus 4 Not Detected Not Detected BIOFIRE TOR 11/08/2024 7:54 PM EDT [facility] RSV, PCR Not Detected Not Detected BIOFIRE TOR 11/08/2024 7:54 PM EDT [facility] Bordetella pertussis pcr Not Detected Not Detected BIOFIRE TOR 11/08/2024 7:54 PM EDT [facility] Bordetella parapertussis PCR Not Detected Not Detected BIOFIRE TOR 11/08/2024 7:54 PM EDT [facility] Chlamydophila pneumoniae PCR Not Detected Not Detected BIOFIRE TOR 11/08/2024 7:54 PM EDT [facility] Mycoplasma pneumo by PCR Not Detected Not Detected BIOFIRE TOR 11/08/2024 7:54 PM EDT [facility] Swab Nasopharyngeal structure / Unknown Collection / Unknown 11/08/2024 6:31 PM EDT 11/08/2024 7:03 PM EDT [facility] - 11/08/2024 7:54 PM EDT [...] ORDE TOBY Final Result Performing Organization Address City/State/[facility] de Phone Number [facility]
[address] [place] [address], * Lactic Acid, Plasma (11/08/2024 6:28 PM EDT) Only the most recent of2 resultswithin the time period is included. Lactate 1.7 0.5 - 2.0 mmol/L 11/08/2024 7:00 PM EDT [facility] Comment:Falsely depressed re sults may occur on samples drawn from patients receiving N-Acetylcysteine (NAC) or Metamizole. Blood Venipuncture / Unknown 11/08/2024 6:28 PM EDT 11/08/2024 6:41 PM EDT Dina Rod Daniel DIGITAL ART DIRECTOR LAB BLOOD ORDERABLES Final Result Performing Organization Address [facility] de Phone Number [facility]
[address] [place] [id number], * CT Chest Without Contrast Diagnostic (11/08/2024 5:55 PM EDT) Anatomical Region Laterality Modality Chest N/A Computed Tomogra phy 11/09/2024 8:12 AM EDT Impressions 11/09/2024 8:16 AM EDT Impression: 1.Bilateral lower lung airspace disease suggestive of multifocal pneumonia. 2.Trace bilateral pleural effusions. Electronically Signed: Rah Mayberry MD 11/09/2024 8:16 AM EDT Workstation ID: [id number] Narrative 11/09/2024 8:[address] CHEST [...] MD 11/09/2024 8:16 AM EDT Workstation ID: [id number] Israel Jimenez MD IMG CT ORDERABLES Final Resu lt * NM Lung Ventilation Perfusion (11/08/2024 5:42 PM EDT) Anatomical Region Laterality Modality Chest N/A Nuclear Medicine 11/08/2024 11:5 5 PM EDT Impressions 11/09/2024 12:02 AM EDT Low probability for pulmonary embolism Electronically Signed: Acosta Maxwell MD 11/09/2024 12:02 AM EDT Workstation ID: [id number] Narrative 11/09/2024 12:02 AM EDT DATE OF [...] MD 11/09/2024 12:02 AM EDT Workstation ID: [id number] Israel Jimenez MD [facility] [place] NM ORDERABLES Final Resu lt * Duplex [...] good for diagnosis. No relevant cardiovascular history. us Israel Jimenez MD CV VASCULAR ORDERABLES Final Result * (ABNORMAL) Basic Metabolic Panel (11/08/2024 4:21 PM EDT) Glucose 201(H) 65 - 99 mg/dL 11/08/2024 4:56 PM EDT [facility] BUN 30.5(H) 6.0 - 20.0 mg/dL 11/08/2024 4:56 PM EDT [facility] Creatinine 2.36(H) 0.76 - 1.27 mg/dL 11/08/2024 4:56 PM EDT [facility] Sodium 135(L) 136 - 145 mmol/L 11/08/2024 4:56 PM EDT [facility] Potassium 4.7 3.5 - 5.2 mmol/L 11/08/2024 4:56 PM EDT [facility] Comment:Specimen hemolyzed. Result may be falsely elevated. Chloride 99 98 - 107 mmol/L 11/08/2024 4:56 PM EDT [facility] CO2 24.4 22.0 - 29.0 mmol/L 11/08/2024 4:56 PM EDT [facility] Calcium 9.2 8.6 - 10.5 mg/dL 11/08/2024 4:56 PM EDT [facility] BUN/Creatinine Ratio 12.9 7.0 - 25.0 11/08/2024 4:56 PM EDT [facility] Anion Gap 11.6 5.0 - 15.0 mmol/L 11/08/2024 4:56 PM EDT [facility] eGFR 31.3(L) >60.0 mL/min/1.7 3 11/08/2024 4:56 PM EDT [facility] Blood Venipuncture / Unknown 11/08/2024 4:21 PM EDT 11/08/2024 4:28 PM EDT [facility] - 11/08/2024 4:56 PM EDT [...] MD LAB BLOOD ORDERABLES Final R esult [facility]
[address] [place] [address], * (ABNORMAL) CBC Auto Differential (11/08/2024 3:10 AM EDT) Only the most recent of2 resultswithin the time period is included. WBC 15.14(H) 3.40 - 10.80 10*3/mm3 11/08/2024 3:39 AM EDT [facility] RBC 5.17 4.14 - 5.80 10*6/mm3 11/08/2024 3:39 AM EDT [facility] Hemoglobin 14.7 13.0 - 17.7 g/dL 11/08[facility]2024 [facility] Hematocrit 45.7 37.5 - 51.0 % 11/08/2024 3:39 AM EDT [facility] MCV 88.4 79.0 - 97.0 fL 11/08/2024 3:[facility] MCH 28.4 26.6 - 33.0 pg 11/08/2024 3:39 AM [facility] MCHC 32.2 31.5 - 35.7 g/dL 11/08/2024 3:39 AM [facility] RDW 15.1 12.3 - 15.4 % 11/08/2024 3:39 AM [facility] RDW-SD 49.2 37.0 - 54.0 fl 11/08/2024 3:39 AM [facility] MPV 11.4 6.0 - 12.0 fL 11/08/2024 3:39 AM [facility] Platelets 154 140 - 450 10*3/mm3 11/08/2024 3:39 AM [facility] Neutrophil % 87.0(H) 42.7 - 76.0 % 11/08/2024 3:39 AM [facility] Lymphocyte % 7.9(L) 19.6 - 45.3 % 11/08/2024 3:39 AM [facility] Monocyte % 4.3(L) 5.0 - 12.0 % 11/08/2024 3:39 AM [facility] Eosinophil % 0.1(L) 0.3 - 6.2 % 11/08/2024 3:[facility] Basophil % 0.1 0.0 - 1.5 % 11/08/2024 3:39 [facility] Immature Grans % 0.6(H) 0.0 - 0.5 % 11/08/2024 3:39 AM [facility] Neutrophils, Absolute 13.18(H) 1.70 - 7.00 10*3/mm3 11/08/2024 3:39 AM EDT [facility] Lymphocytes, Absolute 1.20 0.70 - 3.10 10*3/mm3 11/08/2024 3:39 AM EDT [facility] Monocytes, Absolute 0.65 0.10 - 0.90 10*3/mm3 11/08/2024 3:39 AM EDT [facility] Eosinophils, Absolute 0.01 0.00 - 0.40 10*3/mm3 11/08/2024 3:39 AM EDT [facility] Basophils, Absolute 0.01 0.00 - 0.20 10*3/mm3 11/08/2024 3:39 AM EDT [facility] Immature Grans, Absolute 0.09(H) 0.00 - 0.05 10*3/mm3 11/08/2024 3:39 AM EDT [facility] nRBC 0.0 0.0 - 0.2 /100 WBC 11/08/2024 3:39 AM EDT [facility] Blood Venipuncture / Unknown 11/08/2024 3:10 AM EDT 11/08/2024 3:35 AM EDT Dina Sanchez [facility] LAB BLOOD ORDERABLES Final Result [facility]
[address] [place] [address], * (ABNORMAL) STAT Lactic Acid, Reflex (11/08/2024 12:04 AM EDT) Only the most recent of3 resultswithin the time period is included. Lactate 2.6(HH) 0.5 - 2.0 mmol/L 11/08/2024 1:29 AM EDT [facility] Comment:Falsely depressed re sults may occur on samples drawn from patients receiving N-Acetylcysteine (NAC) or Metamizole. Blood Venipuncture / Unknown 11/08/2024 12:04 AM EDT 11/08/2024 1:01 AM EDT Dina Sanchez [employer] LAB BLOOD ORDERABLES Final Result Performing Organization Address [facility] Co de Phone Number [facility]
[address] [place] [address], * Urinalysis, Microscopic Only - Urine, Clean Catch (11/07/2024 6:12 PM EDT) RBC, UA 0-2 None Seen, 0-2 /HPF 11/07/2024 6:43 PM EDT [facility] WBC, UA 0-2 None Seen, 0-2 /HPF 11/07/2024 6:43 PM EDT [facility] Comment:Urine culture not in dicated. Bacteria, UA None Seen None Seen /HPF 11/07/2024 6:43 PM EDT [facility] Squamous Epithelial Cells, UA 0-2 None Seen, 0-2 /HPF 11/07/2024 6:43 PM EDT [facility] Hyaline Casts, UA 13-20 None Seen /LPF 11/07/2024 6:43 PM EDT [facility] Methodology Automated Microscopy 11/07/2024 6:43 PM EDT [facility] Urine Urine specimen obtained by clean catch procedure / Unknown Collection / Unknown 11/07/2024 6:12 PM EDT 11/07/2024 6:33 PM EDT Dina Sanchez [employer] URINE ORDERABLES Final Resu lt [facility]
[address] [place] [address], * (ABNORMAL) Urinalysis With Culture If Indicated - Urine, Clean Catch (11/07/2024 6:12 PM EDT) Color, UA Yellow Yellow, Straw 11/07/2024 6:43 PM EDT [facility] Appearance, UA Clear Clear 11/07/2024 6:43 PM EDT [facility] pH, UA <=5.0 5.0 - 8.0 11/07/2024 6:43 PM EDT [facility] Specific [place], UA 1.013 1.005 - 1.030 11/07/2024 6:43 PM EDT [facility] Glucose, UA Negative Negative 11/07/2024 6:43 PM EDT [facility] Ketones, UA Negative Negative 11/07/2024 6:43 PM EDT [facility] Bilirubin, UA Negative Negative 11/07/2024 6:43 PM EDT [facility] [facility] Blood, UA Negative Negative 11/07/2024 6:43 PM EDT [facility] Protein, UA Trace(A) Negative 11/07/2024 6:43 PM EDT [facility] Leuk Esterase, UA Trace(A) Negative 11/07/2024 6:43 PM EDT [facility] Nitrite, UA Negative Negative 11/07/2024 6:43 PM EDT [facility] Urobilinogen, UA 0.2 E.U./dL 0.2 - 1.0 E.U./dL 11/07/2024 6:43 PM EDT [facility] Urine Urine specimen obtained by clean catch procedure / Unknown Collection / Unknown 11/07/2024 6:12 PM EDT 11/07/2024 6:33 PM EDT Narrative [facility] - 11/07/2024 6:43 PM EDT In absence of clinical symptoms, the presence of pyuria, bacteria, and/or nitrites on the urinalysis result does not correlate with infection. us Dina Sanchez DIGITAL ART DIRECTOR URINE ORDERABLES Final Resu lt [facility]
[address] [place] [address], * Urea Nitrogen, Urine - Urine, Clean Catch (11/07/2024 6:12 PM EDT) Urea Nitrogen, Urine 119 mg/dL 11/08/2024 12:25 PM EDT [facility] Urine Urine specimen obtained by clean catch procedure / Unknown Collection / Unknown 11/07/2024 6:12 PM EDT 11/08/2024 7:51 AM EDT Narrative [facility] - 11/08/2024 12:25 PM EDT Reference intervals for random urine have not been established. Clinical usage is dependent upon physician's interpretation in combination with other laboratory tests. us Israel Jimenez MD URINE ORDERABLES Final Resul t [facility]
[address] [place] [address], [place] [phone] * (ABNORMAL) Urine Drug Screen - Urine, Clean Catch (11/07/2024 6:12 PM EDT) THC, Screen, Urine Negative Negative 2024 6:47 PM EDT [facility] Phencyclidine (PCP), Urine Negative Negative 11/07/2024 6:47 PM EDT [facility] Cocaine Screen, Urine Negative Negative 11/07/2024 6:47 PM EDT [facility] Methamphetamine, Ur Negative Negative 11/07/2024 6:47 PM EDT [facility] Opiate Screen Negative Negative 11/07/2024 6:47 PM EDT [facility] Amphetamine Screen, Urine Negative Negative 11/07/2024 6:47 PM EDT [facility] Benzodiazepine Screen, Urine Positive(A) Negative 11/07/2024 6:47 PM EDT [facility] Tricyclic Antidepressants Screen Positive(A) Negative 11/07/2024 6:47 PM EDT [facility] Methadone Screen, Urine Negative Negative 11/07/2024 6:47 PM EDT [facility] Barbiturates Screen, Urine Negative Negative 11/07[facility]2024 [facility] Oxycodone Screen, Urine Negative Negative 11/07/2024 6:47 PM EDT [facility] Buprenorphine, Screen, Urine Negative Negative 11/07/2024 6:47 PM EDT [facility] Urine Urine specimen obtained by clean catch procedure / Unknown Collection / Unknown 11/07/2024 6:12 PM EDT 11/07/2024 6:34 PM EDT [facility] - 11/07/2024 6:47 PM EDT [...] test, particularly when unconfirmed results are used. Dina Sanchez APRN URINE ORDERABLES Final Resu lt [facility]
[address] [place] [address], * Sodium, Urine, Random - Urine, Clean Catch (11/07/2024 6:12 PM EDT) Sodium, Urine 55 mmol/L 11/08/2024 8:11 AM EDT [facility] Urine Urine specimen obtained by clean catch procedure / Unknown Collection / Unknown 11/07/2024 6:12 PM EDT 11/08/2024 7:51 AM EDT [facility] - 11/08/2024 8:11 AM EDT Reference intervals for random urine have not been established. Clinical usage is dependent upon physician's interpretation in combination with other laboratory tests. Israel Jimenez MD URINE ORDERABLES Final Resul t Performing Organization Address [facility]/ZIP Co de Phone Number [facility]
[address] [place] [address], * Fentanyl, Urine - Urine, Clean Catch (11/07/2024 6:12 PM EDT) Fentanyl, Urine Negative Negative 11/07/2024 7:00 PM EDT [facility] Urine Urine specimen obtained by clean catch procedure / Unknown Collection / Unknown 11/07/2024 6:12 PM EDT 11/07/2024 6:34 PM EDT [facility] - 11/07/2024 7:00 PM EDT [...] test, particularly when unconfirmed results are used. Dina Sanchez APRN URINE ORDERABLES Final Resu lt Performing Organization Address [facility] de Phone Number [facility]
[address] [place] [address], * Creatinine Urine Random (kidney function) GFR component - Urine, Clean Catch (11/07/2024 6:12 PM EDT) Creatinine, Urine 94.0 mg/dL 11/08/2024 12:25 PM EDT [facility] Urine Urine specimen obtained by clean catch procedure / Unknown Collection / Unknown 11/07/2024 6:12 PM EDT 11/08/2024 7:51 AM EDT [facility] - 11/08/2024 12:25 PM EDT Reference intervals for random urine have not been established. Clinical usage is dependent upon physician's interpretation in combination with other laboratory tests. Israel Jimenez MD URINE ORDERABLES Final Resul t [facility]
[address] [place] [address], * Respiratory Culture - Sputum, Cough (11/07/2024 5:31 PM EDT) [facility] Respiratory Culture Scant growth (1+) Normal respiratory candace. No S. aureus or Pseudomonas aeruginosa detected. Final report. TRINI 11/09/2024 12:30 PM EDT [facility] Gram Stain Moderate (3+) WBCs per low power field 11/09/2024 12:30 PM EDT [facility] Gram Stain Rare (1+) Epithelial cells per low power field 11/09/2024 12:30 PM EDT [facility] Gram Stain No organisms seen 11/09/2024 12:30 PM EDT [facility] Sputum Coughed sputum specimen / Unknown Collection / Unknown 11/07/2024 5:31 PM EDT 11/07/2024 5:42 PM EDT Dina Sanchez APRN MICROBIOLOGY - GENERAL ORDE TOBY Final Result Performing Organization Address City/[facility]/ZIP Co de Phone Number [facility]
[address] [place] [address], [facility]
[address] [place] [address], * (ABNORMAL) High Sensitivity Troponin T 1Hr (11/07/2024 5:29 PM EDT) [facility] HS Troponin T 22(H) <22 ng/L 11/07/2024 6:17 PM EDT [facility] Troponin T Numeric Delta 0 ng/L 11/07/2024 6:17 PM EDT [facility] Troponin T % Delta 0 Abnormal if >/= 20% 11/07/2024 6:17 PM EDT [facility] Blood Venipuncture / Unknown 11/07/2024 5:29 PM EDT 11/07/2024 5:52 PM EDT Narrative [facility] - 11/07/2024 6:17 PM EDT High [...] to an underlying chronic condition. Dina Sanchez DIGITAL ART DIRECTOR LAB BLOOD ORDERABLES Final Result [facility]
[address] [place] [address], * Metanephrines, Frac. Free, Plasma (11/07/2024 5:29 PM EDT) Normetanephrine 186.7 0.0 - 244.0 pg/mL 11/11/2024 9:08 PM EDT [facility] Metanephrine 34.1 0.0 - 88.0 pg/mL 11/11/2024 9:08 PM EDT [facility] Blood Venipuncture / Unknown 11/07/2024 5:29 PM EDT 11/07/2024 5:55 PM EDT [facility] - 11/11/2024 9:08 PM EDT Test(s) [id number], Pl; [id number]-[id number], Pl was developed and its performance characteristics determined by [facility]. It has not been cleared or approved by the Food and Drug Administration. Performed at: 01 - [address] [id number] Toe Sewer: Fay Conway MD, Phone: [phone] Dina Sanchez APRN LAB BLOOD ORDERABLES Final Result [facility] [address] [place] [address], * Aldosterone (11/07/2024 5:29 PM EDT) Aldosterone 5.0 0.0 - 30.0 ng/dL 11/13/2024 11:11 AM EDT [facility] Blood Venipuncture / Unknown 11/07/2024 5:29 PM EDT 11/07/2024 5:53 PM EDT Narrative [facility] - 11/13/2024 11:11 AM EDT Test(s) [id number] was developed and its performance characteristics determined by [employer]. It has not been cleared or approved by the Food and Drug Administration. Performed at: - [address] [id number] Toe [place]er: Fay Conway MD, Phone: [phone] Dina Sanchez APRN LAB BLOOD ORDERABLES Final Result Performing Organization Address [facility] Co de Phone Number [facility] [address] [place] [address], * Blood Culture - Blood, Hand, Left (11/07/2024 5:29 PM EDT) Only the most recent of2 resultswithin the time period is included. Blood Culture No growth at 5 days 11/12/2024 6:01 PM EDT [facility] Blood Structure of left hand / Unknown Venipuncture / Unknown 11/07/2024 5:29 PM EDT 11/07/2024 6:00 PM EDT Dina Sanchez APRN MICROBIOLOGY - GENERAL ORDE RABLES Final Result [facility]
[address] [place] [address], [place] [phone] * MRSA Screen, PCR (Inpatient) - Swab, Nares (11/07/2024 5:19 PM EDT) Pathologist [facility] MRSA PCR Negative Negative CEPHE[facility] GENEXPERT 11/07/2024 6:38 PM EDT [facility] Swab Structure of anterior naris / Unknown Collection / Unknown 11/07/2024 5:19 PM EDT 11/07/2024 5:26 PM EDT Narrative [facility] - 11/07/2024 6:38 PM EDT The negative predictive value of this diagnostic test is high and should only be used to consider de-escalating anti-MRSA therapy. A positive result may indicate colonization with MRSA and must be correlated clinically. MRSA Negative Dina Sanchez DIGITAL ART DIRECTOR MICROBIOLOGY - GENERAL ORDE TOBY Final Result [facility]
[address] [place] [address], * ECHO COMPLETE W/ DOPPLER AND COLOR FLOW (11/07/2024 3:51 PM EDT) Pathologist [facility] EF(MOD-bp) 54.9 % LVIDd 4.7 cm LVIDs [...] the aortic root is present. us Dina Viola Sanchez DIGITAL ART DIRECTOR CV ECHO ORDERABLES Final Re sult * [...] previous ECGs available Confirmed by Mei Mccurdy ([id number]) on 11/11/2024 5:17:11 PM Referred By: Confirmed [...] previous ECGs available Confirmed by Mei Mccurdy ([id number]) on 11/11/2024 5:17:11 PM Referred By: Confirmed By: Mei Mccurdy us Dina Sanchez DIGITAL ART DIRECTOR ECG ORDERABLES Final Resul t [facility] ECG * (ABNORMAL) Procalcitonin (11/07/2024 3:08 PM EDT) Procalcitonin 0.38(H) 0.00 - 0.25 ng/mL 11/07/2024 4:24 PM EDT [facility] Blood Line / Unknown 11/07/2024 3: 08 PM EDT 11/07/2024 3:15 PM EDT [facility] - 11/07/2024 4:24 PM EDT As [...] Day 4 values are available. Refer to http://[email or web address]-vbi-[email or web address] Change in PCT <=80% A decrease of [...] diagnosed with severe sepsis or septic shock. us Dina Sanchez APRN LAB BLOOD ORDERABLES Final Result Performing Organization Address City/[facility]/ZIP Co de Phone Number [facility]
[address] [place] [address], * (ABNORMAL) High Sensitivity Troponin T (11/07/2024 3:08 PM EDT) HS Troponin T 22(H) <22 ng/L 11/07/2024 4:30 PM EDT [facility] Blood Line / Unknown 11/07/2024 3: 08 PM EDT 11/07/2024 3:15 PM EDT Narrative [facility] - 11/07/2024 4:30 PM EDT High [...] BLOOD ORDERABLES Final Result Performing Organization Address [facility] Co de Phone Number [facility]
[address] [place] [address], * Protime-INR (11/07/2024 3:08 PM EDT) Protime 14.5 12.2 - 15.3 Seconds 11/07/2024 4:07 PM EDT [facility] INR 1.07 0.89 - 1.12 11/07/2024 4:07 PM EDT [facility] Blood Line / Unknown 11/07/2024 3: 08 PM EDT 11/07/2024 3:15 PM EDT Dina Sanchez APRN LAB BLOOD ORDERABLES Final Result Performing Organization Address City/[facility]/ZIP Co de Phone Number [facility]
[address] [place] [address], * BNP (11/07/2024 3:08 PM EDT) proBNP 74.0 0.0 - 900.0 pg/mL 11/07/2024 4:30 PM EDT [facility] Blood Line / Unknown 11/07/2024 3: 08 PM EDT 11/07/2024 3:15 PM EDT [facility] - 11/07/2024 4:30 PM EDT This [...] Sanchez APRN LAB BLOOD ORDERABLES Final Result [facility]
[address] [place] [address], * Cortisol (11/07/2024 3:08 PM EDT) Cortisol 7.95 mcg/dL 11/07/2024 4:30 PM EDT [facility] Blood Line / Unknown 11/07/2024 3: 08 PM EDT 11/07/2024 3:15 PM EDT [facility] - 11/07/2024 4:30 PM EDT Cortisol Reference Ranges: Cortisol 6AM - 10AM Range: 6.02-18.40 mcg/dl Cortisol 4PM - 8PM Range: 2.68-10.50 mcg/dl Results may be falsely increased if patient taking Biotin. Dina Rod Daniel DIGITAL ART DIRECTOR LAB BLOOD ORDERABLES Final Result [facility]
[address] [place] [address], * (ABNORMAL) Hemoglobin A1c (11/07/2024 3:00 PM EDT) Hemoglobin A1C 5.89(H) 4.80 - 5.60 % 11/07/2024 5:36 PM EDT [facility] Blood Line / Unknown 11/07/2024 3: 00 PM EDT 11/07/2024 3:04 PM EDT Narrative [facility] - 11/07/2024 5:36 PM EDT Hemoglobin A1C Ranges: Increased Risk for Diabetes 5.7% to 6.4% Diabetes >= 6.5% Diabetic Goal < 7.0% Dina Sanchez DIGITAL ART DIRECTOR LAB BLOOD ORDERABLES Final Result [facility]
[address] [place] [address], * CT Outside Head (11/07/2024 2:56 PM [...] IMG DIAGNOSTIC IMAGING ORD ERABLES Final Result from Last 3 Months Insurance [facility] [employer] HMO Advance Directives * CPR (Attempt to Resuscitate) (Latest Code Status on File) Date Activated Date Inactivated Comments 11/07/2024 2:44 PM 11/11/2024 1:37 PM Question Answer Comments Code Status (Patient has no pulse and is not breathing): CPR (Attempt to Resuscitate) Medical Interventions (Patie nt has pulse or is breathing): Full Support Care Teams Bottom Cager Relationship Specialty Start Date End Date Provider, [place] [address] PCP - General 11/07/24
--- OUTSIDE RECORDS SUMMARY | 2024-11-15 11:29 | XMS_ITS | Clinical Summary ---
Author Organization [facility] Address [address] [place] [address] Phone Care Team Providers Care Car Shunter Name Role Phone Unavailable Primary Care Provider [...] patient's age to complete this topic Insurance [facility] MEDICARE ADVANTAGE MR Member Subscriber Plan / Payer (Ef fective 2024-Present) Name:Milton Bassett Relation to Subscriber:Self Name:Milton Bassett Payer ID:Not on file Group ID:[id number] Type:Not on file Address: [place] [phone]
--- OUTSIDE RECORDS SUMMARY | 2024-11-15 11:29 | XMS_ITS | Encounter Summary ---
Author Organization [facility] Address [address] [place] [address] Care Team Providers Care Cotton Puller Name Role Phone Provider, No Known Primary Care Provider Unavail able Encounter Details Date Type Department Care Team (Late st Contact Info) Description 11/11/2024 Readmission Management [facility] [address] [place] [phone] Marsha Bullock, RN Social History Tobacco Use Types Packs/Day Years Used Date Smoking Tobacco: Every Day Cigarettes Alcohol Use Standard Drinks/Week Comments Never 0 [...] or training? Not on file Preferred Language Syrian 11/08/2024 Sex and Gender Information Value Date Recorded Sex Assigned at Not on file Legal Sex Male 11:35 AM EDT Gender Identity Not on file Sexual Orientation Not on file documented as of this encounter Miscellaneous Notes * Outreach Note - Marsha Bullock, RN - 11/11/2024 6:29 PM EDT Prep Survey Flowsheet Row Responses [facility] patient discharged from? [place] Is LACE score less than 10 ? No Eligibility Readm Mgmt Discharge diagnosis Syncope Does the patient have one of the following disease processes/diagnoses(primary or secondary)? Other Prep survey completed? Yes Marsha Masters - Registered Nurse documented in this encounter Plan of Treatment Not on file documented as of this encounter Visit Diagnoses Not on filedocumented in this encounter Care Teams Cotton Puller Relationship Specialty Start Date End Date Provider, [place] [address] PCP - General 11/07/24 documented as of this encounter
--- OUTSIDE RECORDS SUMMARY | 2024-11-15 11:30 | XMS_ITS | Encounter Summary ---
Author Organization [facility] Address [address] [place] [address] Care Team Providers Care Charge Account Identification Clerk Name Role Phone Maged Sharma MD Primary Care Provider [phone] Encounter Details Date Type Department Care Team ([facility] Contact Info) Description 11/01/2024 Orders Only [place] [address] [phone] Loren Pike Social History Tobacco Use Types [...] Department Care Team (Late Contact Info) Description 01/24/2025 12:40 PM EST Office Visit Psychiatric [address] [place] [phone] Guillaume Reeves MD [address] [place] [phone] documented as of this encounter Visit Diagnoses Not on filedocumented in this encounter Additional Health Concerns Assessment Noted Time A Body Mass Index follow-up plan has been documented for the patient 11/01/2024 1:08 PM EDT documented as of this encounter Care Teams Charge Account Identification Clerk Relationship Specialty Start Date End Date Maged Sharma MD [address] [facility] [place] [address] PCP - General 07/31/20 documented as of this encounter
--- OUTSIDE RECORDS SUMMARY | 2024-11-15 11:30 | XMS_ITS | Encounter Summary ---
Author Organization [facility] Address [address] [place] [address] Care Team Providers Care Shipping Checker Name Role Phone Maged Sharma MD Primary Care Provider [phone] Encounter Details Date Type Department Care Team [...] Description 01/24/2025 12:40 PM EST Office Visit [facility] [address] [place] [phone] Guillaume Reeves MD [address] [place] [phone] documented as of this encounter Visit Diagnoses Not on filedocumented in this encounter Additional Health Concerns Assessment Noted Time A Body Mass Index follow-up plan has been documented for the patient 11/01/2024 1:08 PM EDT documented as of this encounter Care Teams Shipping Checker Relationship Specialty Start Date End Date Maged Sharma MD [address] [place] [address] PCP - General 07/31/20 documented as of this encounter
--- OUTSIDE RECORDS SUMMARY | 2024-11-15 11:30 | XMS_ITS | Clinical Summary ---
Author Organization [facility] Address [address] [place] [address] Care Team Providers Care Medical Administrator Name Role Phone Maged Sharma MD Primary Care Provider [phone] Allergies Active Allergy Reactions Criticality Noted Date [...] comorbidity 11/01/2024 Coronary artery disease invo lving [place]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[place] heart without angina pectoris 11/01/2024 Type 2 [...] Description 11/01/2024 12:20 PM EDT Office Visit [facility] [address] [place] [address] Guillaume Reeves MD Severe obesity (BMI 35.0-39.9) with comorbidity (CMS/HCC) (Primary Dx); Coronary artery disease involving [place]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[place] heart without angina pectoris; Type 2 diabetes mellitus with chronic kidney disease, without long-term current use of insulin, unspecified CKD stage (CMS/HCC); CKD stage 3a, GFR 45-59 ml/min (CMS/HCC); Hypertensive chronic kidney disease with stage 1 through stage 4 chronic kidney disease, or unspecified chronic kidney disease; Chronic kidney disease-mineral and bone disorder (CKD-MBD) 11/01/2024 Orders Only [facility] [address] [phone] Loren Pike 11/01/2024 Travel 09/19/2024 Orders Only [facility] [address] [phone] Loren Pike CKD (chronic kidney disease) stage 3, GFR 30-59 ml/min ([facility]) (Primary Dx); Vitamin D insufficiency from Last [...] 11/01/2024 12:17 PM EDT Plan of Treatment Upcoming Encounters Date Type Department Care Team (Late st Contact Info) Description 01/24/2025 12:40 PM EST Office Visit [facility] [address] [place] [phone] Guillaume Reeves MD [address] [place] [address] Health Maintenance Due Date Last Done Comments [facility]-Depression Screening 1966 [facility]-HIV Screening 1966 [facility]-Hepatitis C Screening 1966 [facility]-Medicare Annual Wellness (AWV) 1966 [facility]-Infant/Child/Adol SDOH Screenings 1966 Diabetes: Dental Exam 1976 [facility]- SDOH Screenings 1984 [facility]-Adult SDOH Screenings 1984 [facility]-Hepatitis B Vaccines (1 of 3 - 19+ 3-dose series) 1985 [facility]-DTaP,Tdap,and Td Vaccine s (1 - Tdap) 05/24/1996 05/23/1996 CT Colonography 11/30/2011 Colonoscopy 11/30/2011 FIT-DNA 11/30/2011 FIT 11/30/2011 FOBT 11/30/2011 Sigmoidoscopy 11/30/2011 [facility]-Colorectal Cancer Screening 11/30/2011 [facility]-Zoster Vaccines (1 of 2) 2016 [id number] Vaccine (1 - season) 2023 [facility]-Pneumococcal Vaccine: 50 + Years (2 of 2 - PCV) 01/13/2024 01/12/2023 [facility]-Influenza Vaccine (#1) 2024 01/22/2019 [facility]-Diabetes: Hemoglobin A1C 05/07/2025 11/07/2024 [facility]-Lung Cancer Screening 11/08/20252024, 08/22/2017 [facility]-Obesity Intervention Completed 11/01/2024 HPV Vaccines Aged [...] Most Recently Relevant to Health Maintenance Insurance [facility] MEDICARE Care Teams Medical Administrator Relationship Specialty Start Date End Date Maged Sharma MD [facility] [address] [place] [address] PCP - General 07/31/20
--- OUTSIDE RECORDS SUMMARY | 2024-11-15 11:30 | XMS_ITS | Patient Health Record ---
[facility] Address [address] [place] [id number] Care Team Providers Care Communications Project Manager Name Role Phone Love Alvaradoian Primary Care Provider Sera Allen [phone] Allergies Allergen (clinical drug ingredient) Drug/Non Drug Allergy documented on EMR Reaction Allergy Type Onset Date Status acetaminophen / hydrocodone HYDROcodone-Acetamino phen Unknown Drug Allergy Active Results Component Value Reference Range Notes proBrain Natriuretic Peptide Reviewed date:08/30/2024 12:58:29 PM Interpretation:Normal Performing Lab: Notes/Report: CLIA: [id number] Jez Martines MD, Mining Manager [address] [place] [address] [address], [place] [address] Test performed by [facility] proBrain Natriuretic Peptide 43 <300 pg/mL Please note the updated reference range values which are stratified by age. Positive >900 pg/mL Indeterminate 300-900 pg/mL Negative <300 pg/mL P-Microalbumin/Creatinine, R andom Urine Sample Reviewed date:08/30/2024 12:58:29 PM Interpretation:Normal Performing Lab: Notes/Report: Test performed by [facility] [address] [place] [address], [place] [address] Jez Martines MD, Mining Manager CLIA: [id number] Albumin/Creatinine Ratio, Urine 4 0-30 ug/mg Microalbumin, Urine, Random 0.9 Creatinine, Urine 251.0 P-TSH reflex to FT4 Reviewed date:08/30/2024 12:58:29 PM Interpretation:Normal Performing Lab: Notes/Report: Test performed by [facility] CLIA: [id number] Jez Martines MD, Mining Manager [address] [place] [address] [place] [address] TSH reflex to FT4 1.62 0.43-5.25 mU/L P-Lipid Panel Reviewed date:08/30/2024 12:58:29 PM Interpretation:trigs 204, hdl 26 Performing Lab: Notes/Report: Test performed by [facility] [address] [place] [address] , [address], [place] [address] Jez Martines MD, Mining Manager CLIA: [id number] Cholesterol 94 <200 mg/dL Triglycerides 204 <150 [...] Results: 27 Units: mg/dL % Change: -34% P-Comprehensive Metabolic Pa jesika (CMP) Reviewed date:08/30/2024 12:58:29 PM Interpretation:Normal Performing Lab: Notes/Report: Test performed by [email or web address] [address] [facility] , [address], [place] [address] Jez Martines MD, Mining Manager CLIA: [id number] Sodium 143 135-145 mmol/L Potassium 4.3 3.5-5.3 [...] 0.2 <0.2-1.2 mg/dL A/G Ratio 1.7 1.1-2.5 Glycohemoglobin A1c (in hous e) Reviewed date:08/30/2024 12:58:29 PM Interpretation:5.8 Performing Lab: Notes/Report: 5.8 glycohemoglobin 5.8% 5 - 6.5 % CBC Venipuncture (in house) Reviewed date:08/30/2024 12:58:29 [...] - 38 platlet 119 100 - 400 CXR Reviewed date:04/19/2024 11:52:53 AM Interpretation: Performing Lab: Notes/Report: Covid test (in house) Reviewed date:04/18/2024 11:40:53 AM Interpretation:neg Performing Lab: Notes/Report: neg Result: neg H-Covid, Flu A, Flu B PCR Reviewed date:04/18/2024 03:11:07 PM Interpretation: Performing Lab: Notes/Report: No Is this the 1st COVID test for the patient? No Does the patient have COVID symptoms? No Is the patient employed in healthcare? No Is patient an [facility] employee? N Is patient currently hospitalized? No [...] FLUAPCR Detected NotDetected FLUBPCR Not Detected NotDetected CBC Fingerstick (in house) Reviewed date:04/18/2024 11:40:36 [...] - 38 plat 98 100 - 400 P-TSH reflex to FT4 Reviewed date:03/28/2024 02:02:50 PM Interpretation:normal Performing Lab: Notes/Report: Test performed by [facility] [address] , [address], [place] [address] Jez Martines MD, Mining Manager CLIA: [id number] TSH reflex to FT4 4.35 0.43-5.25 mU/L P-PSA Reviewed date:03/28/2024 02:02:50 PM Interpretation:normal Performing Lab: Notes/Report: Test performed by [facility] [address] , [address], [place] [address] Jez Martines MD, Mining Manager CLIA: [id number] PSA 0.98 <4.00 ng/mL Please note this is an ultrasensitive PSA assay with a lower limit of detection of 0.014 ng/mL. This test is performed by the [employer] ECLIA methodology. Values obtained with different assay methods or kits cannot be directly compared. P-Lipid Panel Reviewed date:03/28/2024 02:02:50 PM Interpretation:TG's 378, HDL 29 Performing Lab: Notes/Report: Test performed by [facility] [address] [place] [address] , [address], [place] [address] Jez Martines MD, Mining Manager CLIA: [id number] Cholesterol 146 <200 mg/dL Triglycerides 378 <150 [...] Results: 41 Units: mg/dL % Change: -22% P-Comprehensive Metabolic Pa jesika (CMP) Reviewed date:03/28/2024 02:02:50 PM Interpretation:Glucose 142, Cr 1.38 Performing Lab: Notes/Report: Test performed by [email or web address] [address] [place] [address] , [address], [place] [address] Jez Martines MD, Mining Manager CLIA: [id number] Sodium 142 135-145 mmol/L Potassium 4.9 3.5-5.3 [...] 0.3 <0.2-1.2 mg/dL A/G Ratio 1.4 1.1-2.5 Glycohemoglobin A1c (in hous e) Reviewed date:03/28/2024 02:02:50 PM Interpretation:5.9% Performing Lab: Notes/Report: 5.9% glycohemoglobin 5.9% 5 - 6.5 % CBC Venipuncture (in house) Reviewed date:03/27/2024 11:11:56 [...] - 38 platlet 133 100 - 400 CBC Venipuncture (in house) (Not yet reviewed by provider) Interpretation: Performing Lab: Notes/Report: wbc 9.0 3.5 - 10 lymph 17.6 15 - 50 mid 5.4 2 - 15 gran 77.0 35 - 80 rbc 4.74 3.5 - 5.5 hgb 13.6 11.5 - 16.5 hct 41.5 35 - 55 mcv 87.6 75 - 100 mch 28.8 25 - 35 mchc 32.9 31 - 38 platlet 129 100 - 400 Medications Medication SIG (Take, Route, Frequency, Duration) Notes Start Date End Date Status QUEtiapine Fumarate ER 150 MG 1 tab(s) orally once a day (in the evening); Duration: 30 day(s) Active Rosuvastatin Calcium 20 MG 1 tablet Orally Once a day Active lamoTRIgine 200 MG 1 tab(s) orally 2 ti mes a day Active LORazepam 0.5 MG 1 tab Orally 3 times a day, prn Active Glimepiride 4 MG 1 tab(s) orally once a day; Duration: 90 days Not-Takin g Stiolto Respimat 2.5-2.5 MCG/ACT 2 puffs Inhalation Once a day Active Tresiba FlexTouch 200 UNIT/ML 5 units subcutaneously once a day Not-Taking Metoprolol Succinate ER 50 MG 1/2 tab orally once a day Not-Taking Klor-Con 10 10 MEQ TAKE 1 TABLET EVERY DAY; Duration: 90 Not-Taking Gabapentin 800 MG 1 tablet Orally 3 ti mes a day Active Spironolactone 50 MG 1 tablet Orally Onc e a day Not-Taking Prasugrel HCl 10 MG as directed Orally Active Vilazodone HCl 40 MG 1 tablet with food Orally Once a day Active Venlafaxine HCl ER 37.5 MG 1 cap(s) orally once a day; Duration: 30 day(s) Not-Kareem ing Nitroglycerin 0.4 MG 1 tablet under the tongue and allow to dissolve as needed. Take every 5 minutes up to 3 times if chest pain persists Sublingual Three times a day Active Furosemide 40 MG 2 tabs orally once a day; Duration: 90 days Not-Takin g Losartan Potassium 100 MG 1/2 orally once a day Not-Ta jerilyn Breztri Aerosphere 160-9-4.8 MCG/ACT 2 puffs Inhalation Twice a day Active Methocarbamol 750 MG 1 tablet Orally mis ry 4 hrs Not-Taking Pen [place] 32G X 4 MM as directed 09/09/2022 Active Droplet Pen [place] 32G X 4 MM USE DIRECTED; Duration: 90 Active Albuterol Sulfate HFA 108 (90 Base) MCG/ACT 2 puff(s) inhaled every 6 hours Active Aspirin 81 MG 1 tab(s) orally once a day; Duration: 30 day(s) Active Accu-Chek Guide Test - TEST BLOOD SUGAR TWO TIMES DAILY DIRECTED; Duration: 90 Active Omeprazole 40 MG 1 cap(s) Orally once daily; Duration: 90 days Active Accu-Chek Guide - USE DIRECTED TO T EST TWO TIMES DAILY; Duration: 90 Active metFORMIN HCl 500 MG 2 tab(s) orally 2 t imes a day; Duration: 90 days Active Immunizations Vaccine Route Administration Date Status Comme nts DT, 7 YEARS OR OLDER Unknown 05/23/1996 Administered PNEUMOVAX 23 VACCINE IM Intramuscular 01/12/2023 Administe red Problems Problem Type SNOMED Code ICD Code Onset Dates Problem Status W/U Status Risk Notes Problem Hyperglycemia (64501779) Hyperglycemia (R73.9) Active confirmed Problem Essential hypertension (73849316) Essential hypertension (I10) Active confirmed Problem Onychogryposis (24784674) Onychogryposis (L60.2) Active confirmed Problem Morbid obesity (disorder) (551107176) Morbid (severe) obesity due to excess calories (E66.01) Active confirmed Problem Type 2 diabetes mellitus with other specified complication (E11.69) Active confirmed Problem Mixed hyperlipidemia (704988638) Mixed hyperlipidemia (E78.2) Active confirmed Problem Hypertensive heart failure (50596292) Hypertensive heart disease with heart failure (I11.0) Active confirmed Problem Simple chronic bronchitis (28773053) Simple chronic bronchitis (J41.0) Active confirmed Problem Chronic respiratory failure (83491648) Chronic respiratory failure, unspecified whether with hypoxia or hypercapnia (J96.10) Active confirmed Problem Onychomycosis (042276397) Onychomycosis (B35.1) Active confirmed Problem Arteriosclerotic vascular disease (50192871) Arteriosclerotic cardiovascular disease (I25.10) Active confirmed Problem Congestive heart failure (73733410) Congestive heart failure, unspecified (I50.9) Active confirmed Problem Long-term current use of insulin (202475479) terminologist (current) use of insulin (Z79.4) Active confirmed Problem COPD - Chronic obstructive pulmonary disease (35335845) Chronic obstructive pulmonary disease, unspecified COPD type (J44.9) Active confirmed Problem Obese class II (328940039908790) BMI 37.0-37.9, adult (Z68.37) Active confirmed Problem Pneumonia (622824418) Pneumonia of both lower lobes due to infectious organism (J18.9) Active confirmed Problem Hyperglycemia due to type 2 diabetes mellitus (480433279651221) Type 2 diabetes mellitus with hyperglycemia, without long-term current use of insulin (E11.65) Active confirmed Problem Stasis dermatitis (disorder) (93597651) Stasis dermatitis of both legs (I87.2) Active confirmed Problem Obese class II (983087654213634) Adult BMI 35.0-35.9 kg/sq m (Z68.35) Active confirmed Problem Hyperglycemia due to type 2 diabetes mellitus (414362833772318) Type 2 diabetes mellitus with hyperglycemia, unspecified whether custodial insulin use (E11.65) Active confirmed Problem Plain X-ray of chest abnormal (finding) (2290217483) Abnormal chest x-ray (R93.89) Active confirmed Problem Diastolic dysfunction (4005092) Diastolic dysfunction (I51.89) Active confirmed Problem Gastroesophageal reflux disease (276678101) Gastroesophageal reflux disease, unspecified whether esophagitis present (K21.9) Active confirmed Problem Stasis dermatitis of lower limb due to chronic peripheral venous hypertension (disorder) (793114609) Stasis dermatitis of lower extremity due to chronic peripheral vascular hypertension (I87.329) Active confirmed Vital Signs Heart Rate 90 /min 11/15/2024 Blood pressure diastolic 86 mm Hg 11/15/2024 Height 70 in 11/15/2024 Blood pressure systolic 128 mm Hg 11/15/2024 Weight 260.2 lbs 11/15/2024 BMI 37.33 kg/m2 11/15/2024 Encounters Encounter Location Date Provider Diagnosis [facility] [address] [facility] [address] [id number] 03/27/2024 Sera Allen Essential hypertensi on I10 ; Arteriosclerotic cardiovascular disease I25.10 ; Type 2 diabetes mellitus with other specified complication E11.69 ; Mixed hyperlipidemia E78.2 ; Screening PSA (prostate specific antigen) Z12.5 and Encounter for screening colonoscopy Z12.11 [facility] [address] [id number] 04/18/2024 Sera Allen Acute URI J06.9 and Bronchitis J40 [facility] [address] [place] [id number] 08/28/2024 Sera Allen Intermittent diarrhe a R19.7 [...] obstructive pulmonary disease, unspecified COPD type J44.9 [facility] [address] [facility] [address] [place], [place] [id number] 11/15/2024 Sera Boonedy Acute pneumonia J18. 9 ; Acute renal failure, unspecified acute renal failure type N17.9 ; Symptomatic hypotension I95.9 and Recurrent syncope R55 [facility] [address] [place], [place] [id number] 03/28/2024 Sera Crowdy [facility] [address] [facility] [address] [place], [place] [id number] 04/18/2024 Sera Crowdy [facility] [address] [facility] [address] [place] [id number] 05/08/2024 Todd Brantingham Gastroesophageal ref lux disease, unspecified whether esophagitis present K21.9 [facility] [address] [facility] [address] [place], [place] [id number] 07/26/2024 Todd Brantingham Lower extremity clifford a R60.0 [facility] [address] [facility] [address] [place] [id number] 08/09/2024 Todd Brantingham [facility] [address] [facility] [address] [place], [place] [id number] 08/30/2024 Sera Tiffany Assessments Encounter Date Diagnosis (ICD Code) Assessment [...] - R19.7) Patient has a c-scope scheduled. 11/15/2024 Acute renal failure, unspecified acute renal failure type (ICD-10 - N17.9) 11/15/2024 Acute pneumonia (ICD-10 - J18.9) 11/15/2024 Symptomatic hypotension (ICD-10 - I95.9) 08/28/2024 Lower extremity edema (ICD-10 - R60.0) 03/27/2024 Type 2 diabetes mellitus with other specified complication (ICD-10 - E11.69) 03/27/2024 Mixed hyperlipidemia (ICD-10 - E78.2) 08/28/2024 Essential hypertension (ICD-10 - I10) 11/15/2024 Recurrent syncope (ICD-10 - R55) 08/28/2024 Arteriosclerotic cardiovascular disease (ICD-10 - I25.10) [...] Name Order Date colonoscopy 08/09/2022 colonoscopy 03/27/2024 CXR 11/15/2024 CBC Venipuncture (in house) 11/15/2024 LC-Comp. Metabolic Panel (14) 11/25/2020 P-BNP (Brain Natriuretic Peptide) 2024 P-Comprehensive Metabolic Panel (CMP) P-TSH 11/15/2024 Next Appt Details Provider Name:Sera menezes, 11/22/2024 10:30:00 AM, [address], [address], [place], [id number], Provider Name:Sera menezes, 02/28/2025 09:00:00 AM, [address], [address], [place], [id number], Insurance Providers Payer Name Payer Address Payer Phone Subscriber Number Group Number Insured Name Patient Relationship to Insured Coverage Start Date Coverage End Date [employer] [address] [place] [address] [phone] [id number] Milton Kohler Self - patient is the insured [employer] [address] [place] [address] [phone] [id number] Milton Kohler Self - patient is the insured Medical (General) History Medical History History ICD Code COPD enlarged heart HBP Depression, bipolar Arthritis T2DM Surgical History Surgery Date(Month/Year) Bilateral Knee 07/2006 Nerve Stimulator Knee x6 Back Hospitalization History Reason Date(Month/Year)
--- OUTSIDE RECORDS SUMMARY | 2024-11-15 11:31 | XMS_ITS | Encounter Summary ---
Author Organization [facility] Address [address] [place] [address] Care Team Providers Care Surgical Nurse Name Role Phone Maged Sharma MD Primary Care Provider [phone] Encounter Details Date Type Department Care Team ([facility] Contact Info) Description 09/19/2024 Orders Only [facility] [address] [phone] Loren [...] Upcoming Encounters Date Type Department Care Team ([facility] Contact Info) Description 01/24/2025 12:40 PM EST Office Visit [facility] [address] [place] [address] Guillaume Reeves MD [address] [place] [phone] Scheduled Orders Name Type Priority Associated Diagnoses Orde r Schedule Renal Function Panel, Plasma Lab Routine CKD (chronic kidney disease) stage 3, GFR 30-59 ml/min (CMS/HCC) Expected: 09/19/2024 (Approximate), Expires: 03/22/2026 CBC and Differential Lab Routine CKD (chronic kidney disease) stage 3, GFR 30-59 ml/min ([facility]) Expected: 09/19/2024 (Approximate), Expires: 03/22/2026 Creatinine, Random, Urine Lab Routine CKD (chronic kidney disease) stage 3, GFR 30-59 ml/min ([facility]) Expected: 09/19/2024 (Approximate), Expires: 03/22/2026 Protein, Random, Urine with Creatinine Lab Routine CKD (chronic kidney disease) stage 3, GFR 30-59 ml/min ([facility]) Expected: 09/19/2024 (Approximate), Expires: 03/22/2026 Urinalysis with reflex microscopic (Culture NOT Included) Lab Routine CKD (chronic kidney disease) stage 3, GFR 30-59 ml/min ([facility]) Expected: 09/19/2024 (Approximate), Expires: 03/22/2026 PTH Intact Total Lab Routine CKD (chronic kidney disease) stage 3, GFR 30-59 ml/min ([facility]) Vitamin D insufficiency Expected: 09/19/2024 (Approximate), Expires: 03/22/2026 Vitamin D 25 Hydroxy Lab Routine CKD (chronic kidney disease) stage 3, GFR 30-59 ml/min ([facility]) Vitamin D insufficiency Expected: 09/19/2024 (Approximate), Expires: 03/22/2026 documented as of this encounter Visit Diagnoses Diagnosis CKD (chronic kidney disease) stage 3, GFR 30-59 ml/min ([facility])- Primary Chronic kidney disease, Stage III (moderate) Vitamin D insufficiency documented in this encounter Care Teams Surgical Nurse Relationship Specialty Start Date End Date Maged Sharma MD [facility] [place] [address] PCP - General 07/31/20 documented as of this encounter
== END 2024-11-15 23:59 | disposition home or self-care (01) ==
LOC: RAD 11:18
PROVIDERS: PCP Physician Assistant; Visit Provider Physician Assistant
DX: J18.9 Pneumonia, unspecified organism (principal)
CPT/HCPCS: 71046

== ENCOUNTER 2024-11-20 09:28 | Outpatient (CLI) | payer MEDICARE, SELFPAY ==
--- OUTSIDE RECORDS SUMMARY | 2017-08-03 04:50 | XMS_ITS | Continuity of Care Document ---
Author Organization [facility] Address [address] [address] Phone Care Team Providers Care Reweaver Name Role Phone Ronald NANCE Sal ROSADO [...] Copied on Encounter Office/outpa tient visit,anthony, jaison [facility], [address] [place] [address], [id number], tel:[phone] [facility] Dyspnea (chief complaint)Ed dean [...] unspecified heart failure type 8 Ronald Huang. [address] [place] [address], [id number], . tel:[phone] Referring Provider: Sal Cardenas, [address] [place] [address], [id number]. tel:[phone] Family History Family Member Type Diagnosis Age At Onset Mother Problem (finding) coronary arterioscleros is Payers Payer name Insurance type Covered democrat ID Authorwadea carolineabhi(s) Lonnie KRISTIAN [id number] Social History Type Description Quantity Date Captured [...]
--- OUTSIDE RECORDS SUMMARY | 2024-11-01 12:20 | XMS_ITS | Encounter Summary ---
Author Organization [facility] Address [address] [place] [id number] Care Team Providers Care Cruise Guide Name Role Phone Maged Sharma MD Primary Care Provider [phone] Reason for Visit * Reason Comments Consult [...] or 3b CKD (CMS/HCC) Guillaume Reeves MD [address] [place] [phone] Phone: tel: fax: Referral ID Status Reason Start Date Expiration Date V isits Requested Visits Authorized [id number] Closed Specialty Services Required 05/23/2024 11/22/2025 1 1 Encounter Details Date Type Department Care Team (Late st Contact Info) Description 11/01/2024 12:20 PM EDT Office Visit [facility] [address] [place] [phone] Guillaume Reeves MD [address] [place] [phone] Severe obesity (BMI 35.0-39.9) with comorbidity (CMS/HCC) (Primary Dx); Coronary artery disease involving assiniboine and gros ventre tribes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assiniboine and gros [place]re tribes heart without angina pectoris; Type 2 diabetes mellitus with chronic kidney disease, without long-term current use of insulin, unspecified CKD stage ([facility]); CKD stage 3a, GFR 45-59 ml/min ([facility]); Hypertensive chronic kidney disease with stage 1 through stage 4 chronic kidney disease, or unspecified chronic kidney disease; Chronic kidney disease-mineral and bone disorder (CKD-MBD) Social History Tobacco Use Types Packs/Day Years Used Date Smoking Tobacco: Every Day Cigarettes 1 40.1 Started: 11/01/1984 Smokeless Tobacco: Never Tobacco Cessation:Ready [...] History[3] Family History[4] Social History Socioeconomic History ??? Marital status: Spouse name: Not on file ??? Number of children: Not on file ??? Years of education: Not on file ??? Highest education level: Not on file Occupational History ??? Not on file Tobacco Use ??? Smoking status: Every Day Current packs/day: 1.00 Average packs/day: 1 pack/day for 40.0 years (40.0 ttl pk-yrs) Types: Cigarettes Start date: 11/01/1984 ??? Smokeless tobacco: Never Vaping Use ??? Vaping status: Never Used Substance and Sexual Activity ??? Alcohol use: No ??? Drug use: No Comment: Drug use: No illicit drug use ??? Sexual activity: Not on file Other Topics Concern ??? Not on file Social History Narrative from significant other Social Drivers of Health Financial Resource Strain: Not on file Food Insecurity: Not on file Transportation Needs: Not on file Physical Activity: Not on file Stress: Not on file Social Connections: Not on file Intimate Partner Violence: Not on file Housing Stability: Not on file Allergies[5] Medications: Current Medications: Current Outpatient Medications Medication Instructions ??? albuterol 108 (90 Base) MCG/ACT inhaler 2 puffs, 4 times daily ??? aspirin 81 mg, Daily ??? furosemide (LASIX) 20 mg ??? gabapentin (NEURONTIN) 800 mg, 3 times daily ??? glimepiride (AMARYL) 4 mg, Daily before breakfast ??? ipratropium-albuterol (Duo-Neb) 0.5-2.5 mg/3 mL nebulizer solution 3 mL, Every 6 hours PRN ??? lamoTRIgine (LAMICTAL) 400 mg, Daily ??? losartan (COZAAR) 100 mg, Daily ??? metFORMIN (GLUCOPHAGE) 1,000 mg, 2 times daily with meals ??? methocarbamol (ROBAXIN) 750 mg, 4 times daily ??? metoprolol tartrate (Lopressor) 25 MG tablet ??? nitroglycerin (NITROSTAT) 0.4 mg, Every 5 min PRN ??? omeprazole (PRILOSEC) 40 mg, Daily ??? potassium chloride CR 10 MEQ PO ER tablet ??? prasugrel (EFFIENT) 10 mg, Daily ??? QUETIAPINE FUMARATE ER PO 450 mg, Daily ??? rosuvastatin (CRESTOR) 20 mg, Nightly ??? tiotropium-olodaterol (Stiolto Respimat) 2.5-2.5 MCG/ACT aerosol solution inhaler 2 Inhalations, Daily ??? Tresiba FlexTouch 10 Units, Nightly ??? vilazodone (VIIBRYD) 40 mg, Daily with breakfast [...] , CAUR , CALCIUMUR , PHOSUR , [id number] , [id number] , CREATUR MBD: No results found for: [...] , LH , PROLACTIN , TSH , [id number] , FREET4 , CORTISOL 05/13/24 - Creatinine 2.0 Labs 10/28/24 CBC: WBC 7.2, Hgb 14.8, PLT RFP: Na 137, K 4.2, Cl 105, CO2 26, BUN 14, Cr 1.3, GFR 57, Glu 121, Ca 9.7, P 4.2, Alb 4.2, PTH 38, Vit d 27 UA: neg blood, neg prot, urine creat 107, urine prot 13 Imaging: No suspicious kidney lesions on Ct 2018 Impression & Plan: Milton Bassett is a [...] year Guillaume Reeves MD Division of Nephrology [facility] Counseling Documentation: The patient was counseled regarding COUNSELING TOPICS: diagnostic results, prognosis, risks and benefit of treatment options, risk factor reductions, instructions for management, patient and family education, medication changes, diagnostic impressions, Heart healthy diet, regular physical activity and weight control, Avoidance of NSAIDs and other nephrotoxins, and shelter nature of condition. Education provided was verbal [...] THIS ENCOUNTER Orders Placed This Encounter Procedures ??? CBC W/O Differential Standing Status: Future Expected Date: 11/01/2025 Expiration Date: 12/06/20[facility] ??? Urinalysis with reflex microscopic (Culture NOT Included) Standing Status: Future Expected Date: 11/01/2025 Expiration Date: 12/06/2025 [facility] ??? Vitamin D 25 Hydroxy Standing Status: Future Expected Date: 11/01/2025 Expiration Date: 12/06/2025 [facility] ??? PTH Intact Total Standing Status: Future Expected Date: 11/01/2025 Expiration Date: 12/06/2025 [facility] ??? Albumin-creatinine ratio, urine, random Standing Status: Future Expected Date: 11/01/2025 Expiration Date: 12/06/2025 [facility] ??? Protein, Random, Urine with Creatinine Standing Status: Future Expected Date: 11/01/2025 Expiration Date: 12/06/2025 [facility] ??? Renal Function Panel, Plasma Standing Status: Future Expected Date: 11/01/2025 Expiration Date: 12/06/2025 Release to patient in [facility]: Immediate Problem List Items Addressed This Visit Severe obesity (BMI 35.0-39.9) with comorbidity ([facility]) - Primary Relevant Orders CBC W/O Differential Urinalysis with reflex microscopic (Culture NOT Included) Vitamin D 25 Hydroxy PTH Intact Total Albumin-creatinine ratio, urine, random Protein, Random, Urine with Creatinine Renal Function Panel, Plasma Coronary artery disease involving assinibo[place] and g[place] tribes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assinibo[place] and [place] tribes heart without angina pectoris Relevant Medications metoprolol tartrate (Lopressor) 25 MG tablet nitroglycerin (Nitrostat) 0.4 MG SL tablet prasugrel (Effient) 10 MG tablet Type 2 diabetes mellitus with chronic kidney disease, without long-term current use of insulin ([facility]) Relevant Medications losartan (Cozaar) 100 MG tablet [...] Plasma CKD stage 3a, GFR 45-59 ml/min ([facility]) Relevant Medications losartan (Cozaar) 100 MG tablet [...] team. [1] Past Medical History: Diagnosis Date ??? CAD (coronary artery disease) ??? COPD (chronic obstructive pulmonary disease) (CMS/HCC) ??? GERD (gastroesophageal reflux disease) ??? HHD (hypertensive heart disease) ??? HLD (hyperlipidemia) ??? Personal history of other diseases of the circulatory system History of cardiomegaly ??? Personal history of other diseases of the circulatory system History of hypertension ??? Personal history of other diseases of the musculoskeletal system and connective tissue History of arthritis ??? Personal history of other mental and behavioral disorders History of anxiety ??? Personal history of other mental and behavioral disorders History of bipolar disorder ??? Sleep apnea [2] Patient Active Problem List Diagnosis ??? Obesity (BMI 35.0-39.9 without comorbidity) ??? Severe obesity (BMI 35.0-39.9) with comorbidity (CMS/HCC) [3] Past Surgical History: Procedure Laterality Date ??? NECK SURGERY N/A Neck Surgery from [facility] ??? TOTAL KNEE ARTHROPLASTY Right Total Knee Replacement Right from [facility] ??? TOTAL KNEE ARTHROPLASTY Left Total Knee Replacement Left from [facility] [4] Family History Problem Relation Name Age of Onset ??? Conversions - Other Mother Patient's mother is ??? Conversions - Other Father Patient's mother is [5] Allergies Allergen Reactions ??? Hydrocodone-Acetaminophen Unknown - Patient states they do not know rxn details documented in this encounter Plan of Treatment Upcoming Encounters Date Type Department Care Team (Late st Contact Info) Description 01/24/2025 12:40 PM EST Office Visit [facility] [address] [place] [phone] Guillaume Reeves MD [address] [place] [phone] Scheduled Orders Name Type Priority Associated Diagnoses Orde r Schedule CBC W/O Differential Lab Routine Severe obesity (BMI 35.0-39.9) with comorbidity ([facility]) Type 2 diabetes mellitus with chronic kidney disease, without long-term current use of insulin, unspecified CKD stage ([facility]) Expected: 11/01/2025 (Approximate), Expires: 12/06/2025 Urinalysis with reflex microscopic (Culture NOT Included) Lab Routine Severe obesity (BMI 35.0-39.9) with comorbidity ([facility]) Type 2 diabetes mellitus with chronic kidney disease, without long-term current use of insulin, unspecified CKD stage ([facility]) Expected: 11/01/2025 (Approximate), Expires: 12/06/2025 Vitamin D 25 Hydroxy Lab Routine Severe obesity (BMI 35.0-39.9) with comorbidity ([facility]) Type 2 diabetes mellitus with chronic kidney disease, without long-term current use of insulin, unspecified CKD stage ([facility]) Expected: 11/01/2025 (Approximate), Expires: 12/06/2025 PTH Intact Total Lab Routine Severe obesity (BMI 35.0-39.9) with comorbidity ([facility]) Type 2 diabetes mellitus with chronic kidney disease, without long-term current use of insulin, unspecified CKD stage ([facility]) Expected: 11/01/2025 (Approximate), Expires: 12/06/2025 Albumin-creatinine ratio, urine, random Lab Routine Severe obesity (BMI 35.0-39.9) with comorbidity ([facility]) Type 2 diabetes mellitus with chronic kidney disease, without long-term current use of insulin, unspecified CKD stage ([facility]) Expected: 11/01/2025 (Approximate), Expires: 12/06/2025 Protein, Random, Urine with Creatinine Lab Routine Severe obesity (BMI 35.0-39.9) with comorbidity ([facility]) Type 2 diabetes mellitus with chronic kidney disease, without long-term current use of insulin, unspecified CKD stage ([facility]) Expected: 11/01/2025 (Approximate), Expires: 12/06/2025 Renal Function Panel, Plasma Lab Routine Severe obesity (BMI 35.0-39.9) with comorbidity ([facility]) Type 2 diabetes mellitus with chronic kidney disease, without long-term current use of insulin, unspecified CKD stage ([facility]) Expected: 11/01/2025 (Approximate), Expires: 12/06/2025 documented as of this encounter Visit Diagnoses Diagnosis Severe obesity (BMI 35.0-39.9) with comorbidity ([facility])- Primary Coronary artery disease involving assiniboine and gros ventre tribes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assiniboine and g[place] ventre tribes heart without angina 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, without long-term current use of insulin, unspecified CKD stage ([facility]) CKD stage 3a, GFR 45-59 ml/min ([facility]) Hypertensive chronic kidney disease with stage 1 through stage 4 chronic kidney disease, or unspecified chronic kidney disease Chronic kidney disease-mineral and bone disorder (CKD-MBD) documented in this encounter Additional Health Concerns Assessment Noted Time A Body Mass Index follow-up plan has been documented for the patient 11/01/2024 1:08 PM EDT documented as of this encounter Care Teams Cruise Guide Relationship Specialty Start Date End Date Maged Sharma MD [address] [place], [place] [address]T[place] [address] PCP - General 07/31/20 documented as of this encounter
--- OUTSIDE RECORDS SUMMARY | 2024-11-07 14:10 | XMS_ITS | Encounter Summary ---
Author Organization [facility] Address [address] [place] [address] Care Team Providers Care Extension Work Director Name Role Phone Provider, No Known Primary Care Provider Unavail able Reason for Referral * MRI/CAT/PET Scan (Routine) - Pending Review Specialty Diagnoses / Procedures Referred By Contac t Referred To Contact Procedures CT Outside Head Films, Radiant Outside Referral ID Status Reason Start Date Expiration Date V isits Requested Visits Authorized [id number] Pending Review 11/07/2024 02/06/2026 1 1 * MRI/CAT/PET Scan (Routine) - Pending Review Specialty Diagnoses / Procedures Referred By Contac t Referred To Contact Procedures CT Outside Neck Films, Radiant Outside Referral ID Status Reason Start Date Expiration Date V isits Requested Visits Authorized [id number] Pending Review 11/07/2024 02/06/2026 1 1 * Diagnostic Imaging (Routine) - Closed Specialty Diagnoses / Procedures Referred By Contac t Referred To Contact Procedures XR Outside Chest Films, Radiant Outside Referral ID Status Reason Start Date Expiration Date Visits Re quested Visits Authorized [id number] Closed 11/07/2024 02/06/2026 1 1 Reason for Visit * Auth/Cert Specialty Diagnoses / Procedures Referred By Contac t Referred To Contact Diagnoses Syncope (Non traumatic shock) Referral ID Status Reason Start Date Expiration Date Visits Re quested Visits Authorized [id number] 1 1 Encounter Details Date Type Department Care Team (Late st Contact Info) Description 11/07/2024 2:10 PM EDT - 11/11/2024 11:27 AM EDT Hospital Encounter [facility] [address] [place] [id number] Alexsander Branch MD [address] [place] [address] Israel Jimenez MD [address] [place] [address] Yonatan Lebron MD [address] [facility] [address] [place] [address] Discharge Disposition: Home or Self Care Social History Tobacco Use Types Packs/Day Years Used Date Smoking Tobacco: Every Day Cigarettes Tobacco Cessation:Ready to Q uit: Not Asked; Counseling Given: Not Answered Alcohol Use Standard Drinks/Week Comments Never 0 (1 standard drink = 0.6 oz pur e alcohol) AUDIT-C Answer Date Recorded Q1: How often do you have a drink containing alcohol? Monthly or less 11/08/2024 Q2: How many drinks containi ng alcohol do you have on a typical day when you are drinking? Patient does not drink Q3: How often do you have si x or more drinks on one occasion? Never 11/08/2024 Abuse Screen Answer Date Recorded Feels Unsafe at Home or Work/School no 11/08/2024 Feels Threatened by Someone no 10/19 Does Anyone Try to Keep You From Having Contact with Others or Doing Things Outside Your Home? no 11/08/2024 Physical Signs of Abuse Present no 11/08/2024 Housing Stability Answer Date Recorded Current Living Arrangements home 10/19 Potentially Unsafe Housing Conditions Not on kim e 11/08/2024 Disabilities Answer Date Recorded Difficulty Concentrating, Remembering or Making Decisions no 11/08/2024 Difficulty Managing Errands Independently no 11/08/2024 Education Answer Date Recorded Help with school or training? Not on file Preferred Language Tajik 11/08/2024 Sex and Gender Information Value Date Recorded Sex Assigned at Not on file Legal Sex Male 11:35 AM EDT Gender Identity Not on file Sexual Orientation Not on file documented as of this encounter Last Filed Vital Signs Vital Sign Reading Time Taken Comments Blood Pressure 126/88 11/11/2024 3:39 AM EDT Pulse 87 11/11/2024 9:50 AM EDT Temperature 36.7 C (98.1 F) 11/11/2024 3:39 AM EDT Respiratory Rate 18 11/11/2024 3:39 AM EDT Oxygen Saturation 90% 11/11/2024 9:50 AM EDT Inhaled Oxygen Concentration - - Weight 117 kg (258 lb 11.2 oz) 11/10/2024 3:38 A M EDT Height 177.8 cm (5' 10 ) 11/08/2024 3:45 PM EDT Body Mass Index 37.12 11/08/2024 3:45 PM EDT documented in this encounter Functional Status documented as of this encounter Discharge Summaries * Yonatan Lebron MD - 11/11/2024 9:28 AM EDT Images from the original note were not included. [facility] Medicine Services DISCHARGE SUMMARY Patient Name: Milton Bassett : 1965 Date of Admission: 11/07/2024 2:10 PM Date of Discharge: 11/11/24 Primary Care Physician: Provider, No Known Consults No orders found from 10/09/2024 to 11/08/2024. Hospital Course Presenting Problem: hypotension Active Hospital Problems Diagnosis POA ??? Type 2 diabetes mellitus [E11.9] Unknown ??? Tobacco use [Z72.0] Unknown ??? CAD [I25.10] Unknown ??? GERD [K21.9] Unknown ??? Bipolar disorder [F31.9] Unknown ??? CKD [N18.9] Unknown ??? COPD [J44.9] Unknown Resolved Hospital Problems Diagnosis Date Resolved POA ??? Syncope [R55] 11/11/2024 Yes ??? Syncope and collapse [R55] 11/07/2024 Unknown Hospital Course: Milton Bassett is a 58 y.o. male with history of HTN, CAD with prior stent, hyperlipidemia, DM2, CHF (data deficient), COPD on 2 L supplemental oxygen chronically, CKD, bipolar disorder and prior neck surgery who presented to this hospital as a transfer from [facility] after having several syncopal events on the morning of admission. The patient stated he was at home and had previously been in his normal state of health. He had a sudden onset syncopal event after becoming dizzy and then following, possibly hitting his head on a desk. His was at home and found him. He regained consciousness but had 2 additional episodes. [facility]was [facility] to [facility] where he was noted to have high blood pressure in the 200s systolic. His thought he was started on a medicine for blood pressure and then had an acute drop in blood pressure however the patient denies any new meds. Syncope/hypotension CAD, h/o stent CHF - etiology of syncope unclear, but may be related to hypotension secondary to underlying pneumonia - Echo 11/07/2024 EF 51-55% with diastolic dysfunction - EKG NSR - weaned cortef, random cortisol 7.9 - aldosterone, renin and metanephrines pending at time of discharge - patient will need close outpatient followup with PCP FIORDALIZA on CKD IIIa - suspect ATN secondary to hypotension (patient on diuretics and ACEi at home -- held here) - creatinine improved to 1.3 - followup with PCP in one week with BMP - followup with Nephrology Dr Reeves in 3 months Pneumonia COPD - zosyn x 4 days while hospitalized, home on augmentin to complete 7 days total therapy - nebs scheduled -- patient says he has home nebs/inhlalers, but unsure which ones HTN - antihypertensives held during hospitalization, required pressors briefly - patient weaned off solucortef, normotensive at discharge - antihypertensives and diuretics held at discharge -- advised patient to check BP at home twice daily and followup with PCP in one week DMII - resume metformin, holding glimepiride at discharge - SSI - A1c 5.8 - follow up with PCP Tobacco abuse - nicotine replacement - counseled cessation Discharge Follow Up Recommendations for outpatient labs/diagnostics: PCP to followup renin, aldosterone and metanephrines at clinic followup BP check at PCP followup, resume antihypertensives/diuretics as needed BMP at PCP followup Day of Discharge HPI: Feels much better today. No cough, no fevers, now back to 2 liters oxygen (home level). Wants to bedischarged today Review of Systems Gen: no fever Vital Signs: Temp: [98.1 ??F (36.7 ??C)-98.2 ??F (36.8 ??C)] 98.1 ??F (36.7 ??C) Heart Rate: [70-91] 70 Resp: [16-20] 18 BP: (118-148)/(78-88) 126/88 Flow (L/min) (Oxygen Therapy): [2-3] 2 Physical Exam: Non toxic, sitting up on the edge of the bed, eating a breakfast sandwich MM moist RRR Breath sounds grossly clear Abd soft Awake, speech clear Normal affect No LE edema Pertinent and/or Most Recent Results LAB RESULTS: Lab 11/11/24 0514 11/10/24 0413 11/09/24 0321 11/08/24 1828 11/08/24 0310 11/08/24 0004 11/07/24 2052 11/07/24 1730 11/07/24 1508 WBC 7.92 9.12 13.18* -- 15.14* -- -- -- 12.28* HEMOGLOBIN 13.4 13.4 13.7 -- 14.7 -- -- -- 14.4 HEMATOCRIT 42.9 42.4 44.1 -- 45.7 -- -- -- 44.3 PLATELETS 111* 109* 117* -- 154 -- -- -- 145 NEUTROS ABS -- -- -- -- 13.18* -- -- -- 9.28* IMMATURE GRANS (ABS) -- -- -- -- 0.09* -- -- -- 0.05 LYMPHS ABS -- -- -- -- 1.20 -- -- -- 2.21 MONOS ABS -- -- -- -- 0.65 -- -- -- 0.67 EOS ABS -- -- -- -- 0.01 -- -- -- 0.04 MCV 91.5 89.8 90.0 -- 88.4 -- -- -- 88.6 PROCALCITONIN -- -- -- -- -- -- -- -- 0.38* LACTATE -- -- -- 1.7 -- 2.6* 2.1* 2.3* 2.6* PROTIME -- -- -- -- -- -- -- -- 14.5 Lab 11/11/2451311/10/2441211/09/2432011/08/24 1621 11/08/24 0310 11/07/24 1508 11/07/24 1508 11/07/24 1500 SODIUM 142 141 134* 135* 134* < > 136 -- POTASSIUM 4.1 4.3 4.8 4.7 5.3* < > 5.1 -- CHLORIDE 104 103 100 99 97* < > 96* -- CO2 28.0 30.0* 24.2 24.4 24.4 < > 28.0 -- ANION GAP 10.0 8.0 9.8 11.6 12.6 < > 12.0 -- BUN 19.4 19.7 26.4* 30.5* 36.0* < > 33.3* -- CREATININE 1.38* 1.44* 1.73* 2.36* 3.55* < > 3.72* -- EGFR 59.6* 56.7* 45.5* 31.3* 19.2* < > 18.1* -- GLUCOSE 102* 65 134* 201* 137* < > 48* -- CALCIUM 8.7 9.2 9.2 9.2 9.0 < > 9.0 -- MAGNESIUM -- -- 2.0 -- 2.0 -- 1.9 -- PHOSPHORUS -- -- 2.0* -- 4.1 -- 5.4* -- HEMOGLOBIN A1C -- -- -- -- -- -- -- 5.89* < > = values in this interval not displayed. Lab 11/11/2451311/10/2441211/09/2432011/08/2430911/07/24 1508 TOTAL PROTEIN 6.0 6.5 6.6 7.0 6.6 ALBUMIN 3.5 3.7 3.7 4.0 3.8 GLOBULIN 2.5 2.8 2.9 3.0 2.8 ALT (SGPT) 41 24 16 22 20 AST (SGOT) 35 23 15 20 18 BILIRUBIN 0.3 0.3 0.3 0.3 0.4 ALK PHOS 42 39 42 48 50 Lab 11/07/24 1729 11/07/24 1508 PROBNP -- 74.0 HSTROP T 22* 22* PROTIME -- 14.5 INR -- 1.07 Brief Urine Lab Results (Last result in the past 365 days) Color Clarity Blood Leuk Est Nitrite Protein CREAT Urine HCG 11/07/24 1812 94.0 11/07/24 1812 Yellow Clear Negative Trace Negative Trace Microbiology Results (last 10 days) Procedure Component Value - Date/Time Respiratory Panel PCR w/COVID-19(SARS-CoV-2) WALT/RADHA/YANI/PAD/COR/ANISHA In-House, 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 Swab in UTM/VTM, 2 HR TAT - Swab, Nasopharynx [[id number]] (Normal) Collected: 11/08/24 1831 Lab Status: Final result Specimen: Swab from Nasopharynx Updated: 11/08/241953 ADENOVIRUS, PCR Not Detected Coronavirus 229E Not Detected Coronavirus HKU1 Not Detected Coronavirus NL63 Not Detected Coronavirus OC43 Not Detected COVID19 Not Detected Human Metapneumovirus Not Detected Human Rhinovirus/Enterovirus Not Detected Influenza A PCR Not Detected Influenza B PCR Not Detected Parainfluenza Virus 1 Not Detected Parainfluenza Virus 2 Not Detected Parainfluenza Virus 3 Not Detected Parainfluenza Virus 4 Not Detected RSV, PCR Not Detected Bordetella pertussis pcr Not Detected Bordetella parapertussis PCR Not Detected Chlamydophila pneumoniae PCR Not Detected Mycoplasma pneumo by PCR Not Detected Narrative: In the setting of a positive respiratory panel with a viral infection PLUS a negative procalcitoninwithout other underlying concern for bacterial infection, consider observing off antibiotics or discontinuation of antibiotics and continue supportive care. If the respiratory panel is positive for atypical bacterial infection (Bordetella pertussis, Chlamydophila pneumoniae, or Mycoplasma pneumoniae), consider antibiotic de-escalation to target atypical bacterial infection. Respiratory Culture - Sputum, Cough [[id number]] Collected: 11/07/24 1731 Lab Status: Final result Specimen: Sputum from Cough Updated: 11/09/24 1230 Respiratory Culture Scant growth (1+) Normal respiratory candace. No S. aureus or Pseudomonas aeruginosa detected. Final report. Gram Stain Moderate (3+) WBCs per low power field Rare (1+) Epithelial cells per low power field No organisms seen Blood Culture - Blood, Arm, Left [[id number]] (Normal) Collected: 11/07/241728 Lab Status: Preliminary result Specimen: Blood from Arm, Left Updated: 11/10/24 1800 Blood Culture No growth at 3 days Blood Culture - Blood, Hand, Left [[id number]] (Normal) Collected: 11/07/24 172 Lab Status: Preliminary result Specimen: Blood from Hand, Left Updated: 11/10/24 1800 Blood Culture No growth at 3 days MRSA Screen, PCR (Inpatient) - Swab, Nares [[id number]] (Normal) Collected: 11/07/24 171 Lab Status: Final result Specimen: Swab from Nares Updated: 11/07/24 1838 MRSA PCR Negative Narrative: The negative predictive value of this diagnostic test is high and should only be used to consider de-escalating anti-MRSA therapy. A positive result may indicate colonization with MRSA and must be correlated clinically. MRSA Negative XR Chest 1 View Result Date: 11/10/2024 XR CHEST 1 VW Date of Exam: 11/10/2024 2:50 AM EDT Indication: f/u respiratory illness.. Comparison:CT chest November 08, 2024 Findings: The patient had previous cervical spine surgery. The heart looksenlarged. There is density in the basilar areas which could relate to atelectasis. A left pleural effusion not excluded. There is slight prominence of pulmonary vascular markings. Some vascular congestion not entirely excluded. Impression: 1.Bibasilar densities which could relate to atelectasis. A left pleural effusion not excluded. 2.Cardiomegaly. Some vascular congestion not excluded. Electronically Signed: Elliott Lopez MD 11/10/2024 9:32 AM EDT Workstation ID: [id number] CT Chest Without Contrast Diagnostic Result Date: 11/09/2024 CT CHEST WO CONTRAST DIAGNOSTIC Date of Exam: 11/08/2024 5:51 PM EDT Indication: Possible left lowerlobe infiltrate. Comparison: None available. Technique: Axial CT images were obtained of the chest without contrast administration. Reconstructed coronal and sagittal images were also obtained. Automated exposure control and iterative construction methods were used. Findings: MEDIASTINUM: Mitral annular calcification. Aortic and heart size are normal. No mass nor pericardial effusion. CORONARY ARTERIES: There is calcified atherosclerotic disease. LUNGS: Bilateral lower lung airspace disease suggestive of multifocal pneumonia. PLEURAL SPACE: Trace bilateral pleural effusions. LYMPH NODES: There are no pathologically enlarged lymph nodes. UPPER ABDOMEN: Unremarkable OSSEOUS STRUCTURES: Appropriate for age with no acute process identified. Impression: 1.Bilateral lower lung airspace disease suggestive of multifocal pneumonia. 2.Trace bilateral pleural effusions. Electronically Signed: Rah Mayberry MD 11/09/2024 8:16 AM EDT Workstation ID: [id number] NM Lung Ventilation Perfusion Result Date: 11/09/2024 DATE OF EXAM: 11/08/2024 5:39 PM EDT PROCEDURE: NM LUNG VENTILATION PERFUSION INDICATIONS: evaluate likelihood of PE. COMPARISON: No comparisons available. TECHNIQUE: The patient was ventilated with 31.5 mCi of Tc 99m-DTPA and ventilation images were acquired in multiple obliquities. The patient then received 5.0 mCi of technetium 99m MAA intravenously and perfusion images were acquired in multiple obliquities. FINDINGS: There are focal areas of central clumping of radiotracer suggestive of turbulent airflow, a nonspecific finding. There is no convincing mismatched or large perfusion defect. There are areas of matched defect involving the left apex and the medial posterior right lower lobe. Findings are consistent with low probability for pulmonary embolism based on modified PIOPED criteria. Low probability for pulmonary embolism Electronically Signed: Acosta Maxwell MD 11/09/2024 12:02 AM EDT Workstation ID: [id number] Duplex Venous Lower Extremity - Bilateral CAR Result Date: 11/08/2024 ??? Normal bilateral lower extremity venous duplex scan. XR Chest 1 View Result Date: 11/08/2024 XR CHEST 1 VW Date of Exam: 11/08/2024 9:22 AM EDT Indication: dyspnea. Comparison: 11/07/2024 Findings: Cervical fixation hardware is partially included. There is new patchy airspace opacity in the left base which may be due to atelectasis or infiltrate. Right lung is clear. No pneumothorax identified. No large effusion. Pulmonary vascularity appears within normal limits. Heart size appears mildlyprominent. Aortic vascular calcification is noted. Impression: New patchy airspace opacity in the left base may be due to atelectasis or infiltrate. Correlate clinically for pneumonia. Electronically Signed: Acosta Grider MD 11/08/2024 9:45 AM EDT Workstation ID: [id number] XR Chest 1 View Result Date: 11/07/2024 XR CHEST 1 VW Date of Exam: 11/07/2024 2:46 PM EDT Indication: Productive cough. Comparison: Chest radiograph 11/07/2024 Findings: Mediastinum: Cardiac silhouette appears unchanged and mildly enlarged Lungs: The lungs appear clear without focal consolidation appreciated. Pleura: No pleural effusion or pneumothorax. Bones and soft tissues: No acute, displaced fracture seen. ACDF hardware Impression: No radiographic evidence of acute cardiopulmonary abnormality. Electronically Signed: Florian Luo MD 11/07/2024 3:13 PM EDT Workstation ID: [id number] CT Outside Head Result Date: 11/07/2024 This procedure was auto-finalized with no dictation required. CT Outside Neck Result Date: 11/07/2024 This procedure was auto-finalized with no dictation required. XR Outside Chest Result Date: 11/07/2024 This procedure was auto-finalized with no dictation required. Results for orders placed during the hospital encounter of 11/07/24 Duplex Venous Lower Extremity - Bilateral CAR 11/08/2024 4:46 PM Interpretation Summary ??? Normal bilateral lower extremity venous duplex scan. Results for orders placed during the hospital encounter of 11/07/24 Duplex Venous Lower Extremity - Bilateral CAR 11/08/2024 4:46 PM Interpretation Summary ??? Normal bilateral lower extremity venous duplex scan. Results for orders placed during the hospital encounter of 11/07/24 Adult Transthoracic Echo Complete W/ Cont if Necessary Per Protocol 11/07/2024 5:04 PM Interpretation Summary ??? Left ventricular systolic function is normal. Calculated left ventricular EF = 54.9% Left ventricular ejection fraction appears to be 51 - 55%. ??? Left ventricular wall thickness is consistent with mild concentric hypertrophy. ??? Left ventricular diastolic function is consistent with (grade I) impaired relaxation. ??? The left atrial cavity is mildly dilated. ??? No significant structural or functional valvular disease. Plan for Follow-up of Pending Labs/Results: Pending Labs Order Current Status Aldosterone In process Metanephrines, Frac. Free, Plasma In process Metanephrines, Pheochromocytoma Evaluation - Urine, Clean Catch In process Renin Direct Assay In process Blood Culture - Blood, Arm, Left Preliminary result Blood Culture - Blood, Hand, Left Preliminary result Discharge Details Discharge Medications New Medications Instructions Start Date amoxicillin-clavulanate 875-125 MG per tablet Commonly known as: AUGMENTIN 1 tablet, Oral, 2 Times Daily Continue These Medications Instructions Start Date gabapentin 800 MG tablet Commonly known as: NEURONTIN 800 mg, Oral, 3 Times Daily lamoTRIgine 100 MG tablet Commonly known as: LaMICtal 200 mg, 2 Times Daily LORazepam 0.5 MG tablet Commonly known as: ATIVAN 0.5 mg, Every 8 Hours PRN metFORMIN 500 MG tablet Commonly known as: GLUCOPHAGE 500 mg, Oral, 2 Times Daily With Meals, Two tablets per dose BID omeprazole 40 MG capsule Commonly known as: priLOSEC 40 mg, Oral, Daily QUEtiapine XR 400 MG 24 hr tablet Commonly known as: SEROquel XR 400 mg, Oral, Nightly rosuvastatin 20 MG tablet Commonly known as: CRESTOR 20 mg, Oral, Daily vilazodone 40 MG tablet tablet Commonly known as: VIIBRYD 40 mg, Oral, Daily Stop These Medications furosemide 40 MG tablet Commonly known as: LASIX glimepiride 4 MG tablet Commonly known as: AMARYL losartan 100 MG tablet Commonly known as: COZAAR methocarbamol 750 MG tablet Commonly known as: ROBAXIN metoprolol succinate XL 50 MG 24 hr tablet Commonly known as: TOPROL-XL potassium chloride 10 MEQ CR tablet spironolactone 50 MG tablet Commonly known as: ALDACTONE Allergies Allergen Reactions ??? Hydrocodone-Acetaminophen Hives Discharge Disposition: Home or Self Care Diet: Hospital: Diet Order Procedures ??? Diet: Cardiac, Diabetic; Healthy Heart (2-3 Na+); Consistent Carbohydrate; Fluid Consistency: Thin (IDDSI 0) Standing Status: Standing Number of Occurrences: 1 Diets:: Cardiac Diets:: Diabetic Cardiac Diet:: Healthy Heart (2-3 Na+) Diabetic Diet:: Consistent Carbohydrate Fluid Consistency:: Thin (IDDSI 0) Activity: Restrictions or Other Recommendations: CODE STATUS: Code Status and Medical Interventions: CPR (Attempt to Resuscitate); Full Support Ordered at: 11/07/24 8959 Code Status (Patient has no pulse and is not breathing): CPR (Attempt to Resuscitate) Medical Interventions (Patient has pulse or is breathing): Full Support No future appointments. Additional Instructions for the Follow-ups that You Need to Schedule Discharge Follow-up with PCP As directed Currently Documented PCP: Provider, No Known PCP Phone Number: None Follow Up Details: follow up with PCP in one week with labs Discharge Follow-up with Specialty: FOLLOW UP WITH [facility] REEVES IN 3 MONTHS As directed Specialty: FOLLOW UP WITH [facility] REEVES IN 3 MONTHS Yonatan Lebron MD 11/11/24 Time Spent on Discharge: I spent 35 minutes on this discharge activity which included: heby-xl-chkbkyzersovo with the patient, reviewing the data in the system, coordination of the care with the nursing staff as well as consultants, documentation, and entering orders. documented in this encounter Discharge Instructions * Appointments* Viky Torrez - 11/11/2024 9:54 AM EDT Guillaume Reeves MD [address] [place] [phone] Phone: tel: Appointment: Dr Reeves's office will call you with appointment date and time. * Attachments The following attachments cannot be sent through Care Everywhere. * Amoxicillin; Clavulanic Acid Tablets (Tajik) * Syncope Adult (Tajik) documented in this encounter Medications at Time of Discharge gabapentin (NEURONTIN) 800 MG tablet Take 1 tablet by mouth 3 (Three) Times a Day. lamoTRIgine (LaMICtal) 100 MG tablet Take 2 tablets by mouth 2 (Two) Times a Day. LORazepam (ATIVAN) 0.5 MG tablet Take 1 tablet by mouth Every 8 (Eight) Hours As Needed for Anxiety. metFORMIN (GLUCOPHAGE) 500 MG tablet Take 1 tablet by mouth 2 (Two) Times a Day With Meals. Two tablets per dose BID omeprazole (priLOSEC) 40 MG capsule Take 1 capsule by mouth Daily. QUEtiapine XR (SEROquel XR) 400 MG 24 hr tablet Take 1 tablet by mouth Every Night. rosuvastatin (CRESTOR) 20 MG tablet Take 1 tablet by mouth Daily. vilazodone (VIIBRYD) 40 MG tablet tablet Take 1 tablet by mouth Daily. amoxicillin-clavu lanate (AUGMENTIN) 875-125 MG per tablet Take 1 tablet by mouth 2 (Two) Times a Day for 5 doses. 5 tablet 11/11/2024 9:59 AM EDT 11/11/2024 11/14/2024 documented as of this encounter Progress Notes * Yonatan Lebron MD - 11/10/2024 9:18 AM EDT Images from the original note were not included. [facility] Medicine Services PROGRESS NOTE Patient Name: Milton Bassett : 1965 Date of Admission: 11/07/2024 Primary Care Physician: Provider, No Known Subjective Subjective CC: syncope HPI: Shortness of breath improving. Not coughing as much. Says he wears two liter of oxygen at home. Objective Objective Vital Signs: Temp: [97.4 ??F (36.3 ??C)-98.4 ??F (36.9 ??C)] 98.1 ??F (36.7 ??C) Heart Rate: [63-93] 78 Resp: [16-18] 18 BP: (126-142)/(75-100) 142/90 Flow (L/min) (Oxygen Therapy): [3-40] 3 Physical Exam: Non toxic, sitting up on the edge of the bed MM moist RRR Bilateral scattered wheezes Abd soft Awake, speech clear Normal affect Results Reviewed: LAB RESULTS: Lab 11/10/24 0413 11/09/24 0321 11/08/24 1828 11/08/24 0310 11/08/24 0004 11/07/24 2052 11/07/24 1730 11/07/24 1729 11/07/24 1508 WBC 9.12 13.18* -- 15.14* -- -- -- -- 12.28* HEMOGLOBIN 13.4 13.7 -- 14.7 -- -- -- -- 14.4 HEMATOCRIT 42.4 44.1 -- 45.7 -- -- -- -- 44.3 PLATELETS 109* 117* -- 154 -- -- -- -- 145 NEUTROS ABS -- -- -- 13.18* -- -- -- -- 9.28* IMMATURE GRANS (ABS) -- -- -- 0.09* -- -- -- -- 0.05 LYMPHS ABS -- -- -- 1.20 -- -- -- -- 2.21 MONOS ABS -- -- -- 0.65 -- -- -- -- 0.67 EOS ABS -- -- -- 0.01 -- -- -- -- 0.04 MCV 89.8 90.0 -- 88.4 -- -- -- -- 88.6 PROCALCITONIN -- -- -- -- -- -- -- -- 0.38* LACTATE -- -- 1.7 -- 2.6* 2.1* 2.3* -- 2.6* PROTIME -- -- -- -- -- -- -- -- 14.5 HSTROP T -- -- -- -- -- -- -- 22* 22* Lab 11/10/24 0413 11/09/24 0321 11/08/24 1621 11/08/24 0310 11/07/24 1508 11/07/24 1500 SODIUM 141 134* 135* 134* 136 -- POTASSIUM 4.3 4.8 4.7 5.3* 5.1 -- CHLORIDE 103 100 99 97* 96* -- CO2 30.0* 24.2 24.4 24.4 28.0 -- ANION GAP 8.0 9.8 11.6 12.6 12.0 -- BUN 19.7 26.4* 30.5* 36.0* 33.3* -- CREATININE 1.44* 1.73* 2.36* 3.55* 3.72* -- EGFR 56.7* 45.5* 31.3* 19.2* 18.1* -- GLUCOSE 65 134* 201* 137* 48* -- CALCIUM 9.2 9.2 9.2 9.0 9.0 -- MAGNESIUM -- 2.0 -- 2.0 1.9 -- PHOSPHORUS -- 2.0* -- 4.1 5.4* -- HEMOGLOBIN A1C -- -- -- -- -- 5.89* Lab 11/10/24 0413 11/09/24 0321 11/08/24 0310 11/07/24 1508 TOTAL PROTEIN 6.5 6.6 7.0 6.6 ALBUMIN 3.7 3.7 4.0 3.8 GLOBULIN 2.8 2.9 3.0 2.8 ALT (SGPT) 24 16 22 20 AST (SGOT) 23 15 20 18 BILIRUBIN 0.3 0.3 0.3 0.4 ALK PHOS 39 42 48 50 Lab 11/07/24 1729 11/07/24 1508 PROBNP -- 74.0 HSTROP T 22* 22* PROTIME -- 14.5 INR -- 1.07 Brief Urine Lab Results (Last result in the past 365 days) Color Clarity Blood Leuk Est Nitrite Protein CREAT Urine HCG 11/07/24 1812 94.0 11/07/24 1812 Yellow Clear Negative Trace Negative Trace Microbiology Results Abnormal None CT Chest Without Contrast Diagnostic Result Date: 11/09/2024 CT CHEST WO CONTRAST DIAGNOSTIC Date of Exam: 11/08/2024 5:51 PM EDT Indication: Possible left lowerlobe infiltrate. Comparison: None available. Technique: Axial CT images were obtained of the chest without contrast administration. Reconstructed coronal and sagittal images were also obtained. Automated exposure control and iterative construction methods were used. Findings: MEDIASTINUM: Mitral annular calcification. Aortic and heart size are normal. No mass nor pericardial effusion. CORONARY ARTERIES: There is calcified atherosclerotic disease. LUNGS: Bilateral lower lung airspace disease suggestive of multifocal pneumonia. PLEURAL SPACE: Trace bilateral pleural effusions. LYMPH NODES: There are no pathologically enlarged lymph nodes. UPPER ABDOMEN: Unremarkable OSSEOUS STRUCTURES: Appropriate for age with no acute process identified. Impression: Impression: 1.Bilateral lower lung airspace disease suggestive of multifocal pneumonia.2.Trace bilateral pleural effusions. Electronically Signed: Rah Mayberry MD 11/09/2024 8:16 AM EDT Workstation ID: [id number] NM Lung Ventilation Perfusion Result Date: 11/09/2024 DATE OF EXAM: 11/08/2024 5:39 PM EDT PROCEDURE: NM LUNG VENTILATION PERFUSION INDICATIONS: evaluate likelihood of PE. COMPARISON: No comparisons available. TECHNIQUE: The patient was ventilated with 31.5 mCi of Tc 99m-DTPA and ventilation images were acquired in multiple obliquities. The patient then received 5.0 mCi of technetium 99m MAA intravenously and perfusion images were acquired in multiple obliquities. FINDINGS: There are focal areas of central clumping of radiotracer suggestive of turbulent airflow, a nonspecific finding. There is no convincing mismatched or large perfusion defect. There are areas of matched defect involving the left apex and the medial posterior right lower lobe. Findings are consistent with low probability for pulmonary embolism based on modified PIOPED criteria. Impression: Low probability for pulmonary embolism Electronically Signed: Acosta Maxwell MD 2:02 AM EDT Workstation ID: [id number] Duplex Venous Lower Extremity - Bilateral CAR Result Date: 11/08/2024 Normal bilateral lower extremity venous duplex scan. XR Chest 1 View Result Date: 11/08/2024 XR CHEST 1 VW Date of Exam: 11/08/2024 9:22 AM EDT Indication: dyspnea. Comparison: 11/07/2024 Findings: Cervical fixation hardware is partially included. There is new patchy airspace opacity in the left base which may be due to atelectasis or infiltrate. Right lung is clear. No pneumothorax identified. No large effusion. Pulmonary vascularity appears within normal limits. Heart size appears mildlyprominent. Aortic vascular calcification is noted. Impression: Impression: New patchy airspace opacity in the left base may be due to atelectasis or infiltrate. Correlate clinically for pneumonia. Electronically Signed: Acosta Grider MD 11/08/2024 9:45AM EDT Workstation ID: [id number] Results for orders placed during the hospital encounter of 11/07/24 Adult Transthoracic Echo Complete W/ Cont if Necessary Per Protocol 11/07/2024 5:04 PM Interpretation Summary Left ventricular systolic function is normal. Calculated left ventricular EF = 54.9% Left ventricular ejection fraction appears to be 51 - 55%. Left ventricular wall thickness is consistent with mild concentric hypertrophy. Left ventricular diastolic function is consistent with (grade I) impaired relaxation. The left atrial cavity is mildly dilated. No significant structural or functional valvular disease. Current medications: Scheduled Meds:arformoterol, 15 mcg, Nebulization, BID - RT aspirin, 81 mg, Oral, Daily budesonide, 0.5 mg, Nebulization, BID - RT gabapentin, 400 mg, Oral, Q8H heparin (porcine), 5,000 Units, Subcutaneous, Q8H hydrocortisone sodium succinate, 50 mg, Intravenous, Q12H insulin glargine, 10 Units, Subcutaneous, Daily insulin lispro, 2-9 Units, Subcutaneous, 4x Daily AC & at Bedtime ipratropium, 0.5 mg, Nebulization, 4x Daily - RT lamoTRIgine, 100 mg, Oral, BID mupirocin, 1 Application, Each Nare, BID nicotine, 1 patch, Transdermal, Q24H pantoprazole, 40 mg, Oral, QAM AC piperacillin-tazobactam, 4.5 g, Intravenous, Q8H prasugrel, 10 mg, Oral, Daily QUEtiapine, 50 mg, Oral, Nightly revefenacin, 175 mcg, Nebulization, Daily - RT rosuvastatin, 10 mg, Oral, Daily vilazodone, 40 mg, Oral, Daily Continuous Infusions:norepinephrine, 0.02-0.3 mcg/kg/min, Last Rate: 0.01 mcg/kg/min (11/07/24 1500) PRN Meds:. acetaminophen OR acetaminophen senna-docusate sodium AND polyethylene glycol AND bisacodyl AND bisacodyl dextrose dextrose glucagon (human recombinant) ipratropium-albuterol sodium chloride Assessment & Plan Assessment & Plan Active Hospital Problems Diagnosis POA Syncope [R55] Yes Type 2 diabetes mellitus [E11.9] Unknown Tobacco use [Z72.0] Unknown CAD [I25.10] Unknown GERD [K21.9] Unknown Bipolar disorder [F31.9] Unknown CKD [N18.9] Unknown COPD [J44.9] Unknown Resolved Hospital Problems Diagnosis Date Resolved POA Syncope and collapse [R55] 11/07/2024 Unknown Brief Hospital Course to date: Milton Bassett is a 58 y.o. male with history of HTN, CAD with prior stent, hyperlipidemia, DM2, CHF (data deficient), COPD on 2 L supplemental oxygen chronically, CKD, bipolar disorder and prior neck surgery who presented to this hospital as a transfer from [facility] after having several syncopal events on the morning of admission. The patient stated he was at home and had previously been in his normal state of health. He had a sudden onset syncopal event after becoming dizzy and then following, possibly hitting his head on a desk. His was at home and found him. He regained consciousness but had 2 additional episodes. [facility]was [facility] where he was noted to have high blood pressure in the 200s systolic. His thought he was started on a medicine for blood pressure and then had an acute drop in blood pressure however the patient denies any new meds. Syncope/hypotension CAD, h/o stent CHF - etiology of syncope unclear - Echo 11/07 EF 51-55% with diastolic dysfunction - EKG NSR - weaning cortef, random cortisol 7.9 - aldosterone, renin and metanephrines pending - patient will need close OP followup with PCP FIORDALIZA on CKD IIIa - suspect ATN secondary to hypotension (patient on diuretics and ACEi at home -- held here) - creatinine improved, BMP am Pneumonia COPD - zosyn - nebs scheduled - CXR reviewed today HTN - antihypertensives held DMII - hold oral medications - SSI - A1c 5.8 - glucose reviewed Tobacco abuse - nicotine replacement - certified substance abuse counselor cessation Expected Discharge Location and Transportation: home Expected Discharge Expected discharge date/ time has not been documented. VTE Prophylaxis: Pharmacologic VTE prophylaxis orders are present. AM-PAC 6 Clicks Score (PT): 24 (11/09/24 1954) CODE STATUS: Code Status and Medical Interventions: CPR (Attempt to Resuscitate); Full Support Ordered at: 11/07/24 1954 Code Status (Patient has no pulse and is not breathing): CPR (Attempt to Resuscitate) Medical Interventions (Patient has pulse or is breathing): Full Support Yonatan Lebron MD 11/10/24 * Israel Jimenez MD - 11/09/2024 9:18 AM EDT Critical Care ICU Note LOS: 2 days Patient Care Team: Provider, No Known as PCP - General Chief Complaint: Syncope Subjective History reviewed and updated in EMR as indicated. Interval history: Patient currently on 55% oxygen 40 L/min on high flow nasal cannula. Blood pressures are improved off of pressors. No fevers or chills. No syncope. No chest pain. No new complaints. CT chest was concerning for the possibility of basilar infiltrates versus just atelectasis. He does have a cough. History taken from: Patient, chart, staff PMH/FH/Social History were reviewed and updated appropriately in the electronic medical record. Review of Systems: Review of 14 systems was completed with positives and pertinent negatives noted in the subjective section. All other systems reviewed and are negative. Objective Vital Signs Temp: [97.1 ??F (36.2 ??C)-98.7 ??F (37.1 ??C)] 97.4 ??F (36.3 ??C) Heart Rate: [74-102] 74 Resp: [16-20] 18 BP: (106-151)/(56-127) 128/80 11/08 0701 - 11/09 0700 In: 2824 [P.O.:520; I.V.:2304] Out: 2550 [Urine:2550] Body mass index is 36.38 kg/m??. IV drips: norepinephrine, Last Rate: 0.01 mcg/kg/min (11/07/24 1500) sodium chloride, Last Rate: 75 mL/hr (11/09/24 0746) Physical Exam: Constitutional: Alert, in no acute distress Head: Normocephalic, abrasion right forehead Eyes: Lids and lashes normal, conjunctivae and sclerae normal. PER ENMT: Ears appear intact with no abnormalities noted Lips normal. Neck: Trachea midline, no JVD Lungs/Resp: Normal effort, symmetric chest rise, no crepitus, moderate diffuse wheezes bilaterally. Heart/CV: Regular rhythm and normal rate, no murmur Abdomen/GI: Soft, nontender, nondistended : Deferred Extremities/MSK: No clubbing or cyanosis. No edema. Pulses: Pulses palpable and equal bilaterally Skin: No bleeding, bruising or rash Heme/Lymph: No cervical or supraclavicular adenopathy. Neurologic: Psychiatric: Moves all extremities with no obvious focal motor deficit. Cranial nerves 2 - 12 grossly intact Non-agitated, normal affect. The above physical exam findings were reviewed and reflect my exam findings as of today's exam. Electronically signed by: Israel Jimenez MD 11/09/24 14:29 EDT Results Review: I reviewed the patient's new clinical results. Results from last 7 days Lab Units 11/09/24 0321 11/08/24 1621 11/08/24 0310 11/07/24 1508 SODIUM mmol/L 134* 135* 134* 136 POTASSIUM mmol/L 4.8 4.7 5.3* 5.1 CHLORIDE mmol/L 100 99 97* 96* CO2 mmol/L 24.2 24.4 24.4 28.0 BUN mg/dL 26.4* 30.5* 36.0* 33.3* CREATININE mg/dL 1.73* 2.36* 3.55* 3.72* CALCIUM mg/dL 9.2 9.2 9.0 9.0 BILIRUBIN mg/dL 0.3 -- 0.3 0.4 ALK PHOS U/L 42 -- 48 50 ALT (SGPT) U/L 16 -- 22 20 AST (SGOT) U/L 15 -- 20 18 GLUCOSE mg/dL 134* 201* 137* 48* Results from last 7 days Lab Units 11/09/24 0321 11/08/24 0310 11/07/24 1508 WBC 10*3/mm3 13.18* 15.14* 12.28* HEMOGLOBIN g/dL 13.7 14.7 14.4 HEMATOCRIT % 44.1 45.7 44.3 PLATELETS 10*3/mm3 117* 154 145 Results from last 7 days Lab Units 11/09/24 0321 11/08/24 0310 11/07/24 1508 MAGNESIUM mg/dL 2.0 2.0 1.9 PHOSPHORUS mg/dL 2.0* 4.1 5.4* I reviewed the patient's new imaging including images and reports. CT chest 11/08/2024 reviewed and shows some basilar atelectasis versus infiltrates. Lungs are otherwise clear. Radiologist's impression follows: Impression: 1.Bilateral lower lung airspace disease suggestive of multifocal pneumonia. 2.Trace bilateral pleural effusions. Chest x-ray 11/08/2024 shows possible left lower lobe infiltrate. Echocardiogram 11/07/2024: Interpretation Summary Left ventricular systolic function is normal. Calculated left ventricular EF = 54.9% Left ventricular ejection fraction appears to be 51 - 55%. Left ventricular wall thickness is consistent with mild concentric hypertrophy. Left ventricular diastolic function is consistent with (grade I) impaired relaxation. The left atrial cavity is mildly dilated. No significant structural or functional valvular disease. Chest x-ray shows cardiomegaly with no infiltrate. Medication Review: arformoterol, 15 mcg, Nebulization, BID - RT aspirin, 81 mg, Oral, Daily budesonide, 0.5 mg, Nebulization, BID - RT gabapentin, 400 mg, Oral, Q8H heparin (porcine), 5,000 Units, Subcutaneous, Q8H hydrocortisone sodium succinate, 50 mg, Intravenous, Q6H insulin glargine, 10 Units, Subcutaneous, Daily insulin lispro, 2-9 Units, Subcutaneous, 4x Daily AC & at Bedtime ipratropium, 0.5 mg, Nebulization, 4x Daily - RT lamoTRIgine, 100 mg, Oral, BID mupirocin, 1 Application, Each Nare, BID nicotine, 1 patch, Transdermal, Q24H pantoprazole, 40 mg, Oral, QAM AC piperacillin-tazobactam, 4.5 g, Intravenous, Q8H prasugrel, 10 mg, Oral, Daily QUEtiapine, 50 mg, Oral, Nightly revefenacin, 175 mcg, Nebulization, Daily - RT rosuvastatin, 10 mg, Oral, Daily vilazodone, 40 mg, Oral, Daily norepinephrine, 0.02-0.3 mcg/kg/min, Last Rate: 0.01 mcg/kg/min (11/07/24 1500) sodium chloride, 75 mL/hr, Last Rate: 75 mL/hr (11/09/24 0746) Assessment & Plan Syncope Type 2 diabetes mellitus Tobacco use CAD GERD Bipolar disorder CKD COPD 58 y.o. male smoker of 1 pack of cigarettes per day with history of HTN, CAD with prior stent, HLD,T2DM, CHF(data deficit as to type/chronicity), COPD, chronic hypoxemic respiratory failure on 2L NC, CKD (data deficit as to severity), bipolar disorder, prior neck surgery, transferred from [facility] after having several syncopal events. No preceding illness. Patient had 3 separate syncopal events. Denied chest pain during event. He does report 1 episode of sharp chest pain at the outside hospital. No evidence of CT scan abnormality on CT of the head and neck. Patient was initially very hypertensive and then became hypotensive requiring pressors. Blood sugars have been low after arrival to this hospital. They have now normalized. On arrival he was requiring low-dose norepinephrine. Labs showed elevated lactic acid level and renal failure. Unclear etiology of patient's syncopal events. He has a cardiac history and this could be related to a cardiac event although troponins are only mildly elevated and flat, EKG does not show ischemic changes. Arrhythmia is possible. Possibly secondary to low blood sugars or low blood pressure from vasovagal syncope or hypovolemia although he initially presented with very elevated blood pressures. He denies any chest pain. There was no mention of seizure-like activity although that would be a possibility. His hemodynamic instability raises the question of potential pheochromocytoma or catecholamine secreting paraganglioma. I am concerned about the possibility of sepsis and we will do a infectious workup and start empiric antibiotics. So far nothing positive in terms of cultures. Blood pressures are improving. Renal function slowly improving. Potassium better today. I am going to continue antibiotics. I previously obtained outside records from a fairly recent MRI of the heart which was fairly normal. Plan: 1. For recurrent syncope/hypotension/labile blood pressure: Unclear etiology with multiple possibilities. Echocardiogram was okay. Cultures not growing pathogens with respiratory culture showing usual respiratory candace. Empiric antibiotics. Monitor heart rhythm. Monitor volume status with fluids ifneeded. Pressors as needed. Follow-up metanephrines. 2. For FIORDALIZA: Unclear etiology. I suspect this is a combination of hypovolemia, potentially related to diuretics and BHUPENDRA inhibitor. Will hold diuretics and BHUPENDRA inhibitor. Hold additional fluids at thispoint. Monitor urine output and labs. 3. For history of hypertension: Hold antihypertensives for now. May need to restart drip if patientdevelops hypertensive urgency that seems to have been the case at presentation. 4. For T2DM/hypoglycemia: Hold oral diabetes medications. Continue low-dose basal insulin with correction. 5. For CAD with prior stent: No evidence of ACS. Continue aspirin, prasugrel. 6. For tobacco abuse: Nicotine replacement. Smoking cessation counseling done. 7. For COPD/bibasilar pneumonia: Bronchodilators/inhaled corticosteroids. Empiric antibiotics. CT chest reviewed with bilateral basilar infiltrates versus atelectasis. He does have a cough and I haveno other explanation for his clinical presentation so we will treat this as pneumonia (despite negative cultures). 8. For possible adrenal insufficiency: Wean stress dose steroids as tolerated. 9. Prophylaxis: Subcutaneous heparin. 10. For acute on chronic hypoxemic respiratory failure/history of untreated sleep apnea: Patient requiring high flow nasal cannula currently. Hypoxemia seems to have progressed from admission. In thesetting of recent syncope, VQ scan was low probability for pulmonary embolism. Lower extremity duplex was normal. Okay to telemetry/hospitalist at this point. Recommend continuing to wean steroids, continue current Zosyn for pneumonia which could potentially be transition to Augmentin to finish a 10-day course or so. Hopefully oxygen will be able to be weaned to reasonable levels in the next few days. May ultimately need to restart diuretics although I think he was considerably dehydrated on admission. Electronically signed by: Israel Jimenez MD 11/09/24 14:29 EDT *. Please note that portions of this note were completed with [employer] - a voice recognition program. * Israel Jimenez MD - 11/08/2024 8:18 AM EDT Critical Care ICU Note LOS: 1 day Patient Care Team: Provider, No Known as PCP - General Chief Complaint: Syncope Subjective History reviewed and updated in EMR as indicated. Interval history: Patient required up to 6 L supplemental oxygen overnight. Blood pressures are still borderline although he is off of pressors. No fevers or chills. No syncope. No chest pain. No new complaints. History taken from: Patient, chart, staff PMH/FH/Social History were reviewed and updated appropriately in the electronic medical record. Review of Systems: Review of 14 systems was completed with positives and pertinent negatives noted in the subjective section. All other systems reviewed and are negative. Objective Vital Signs Temp: [95.3 ??F (35.2 ??C)-98.1 ??F (36.7 ??C)] 97.1 ??F (36.2 ??C) Heart Rate: [73-107] 73 Resp: [18-22] 20 BP: (90-129)/(50-103) 129/79 11/07 0701 - 11/08 0700 In: 100 Out: 1300 [Urine:1300] Body mass index is 36.22 kg/m??. IV drips: norepinephrine, Last Rate: 0.01 mcg/kg/min (11/07/24 1500) sodium chloride, Last Rate: 75 mL/hr (11/08/24 0410) Physical Exam: Constitutional: Alert, in no acute distress Head: Normocephalic, abrasion right forehead Eyes: Lids and lashes normal, conjunctivae and sclerae normal. PER ENMT: Ears appear intact with no abnormalities noted Lips normal. Neck: Trachea midline, no JVD Lungs/Resp: Normal effort, symmetric chest rise, no crepitus, moderate diffuse wheezes bilaterally. Heart/CV: Regular rhythm and normal rate, no murmur Abdomen/GI: Soft, nontender, nondistended : Deferred Extremities/MSK: No clubbing or cyanosis. No edema. Pulses: Pulses palpable and equal bilaterally Skin: No bleeding, bruising or rash Heme/Lymph: No cervical or supraclavicular adenopathy. Neurologic: Psychiatric: Moves all extremities with no obvious focal motor deficit. Cranial nerves 2 - 12 grossly intact Non-agitated, normal affect. The above physical exam findings were reviewed and reflect my exam findings as of today's exam. Electronically signed by: Israel Jimenez MD 11/08/24 08:19 EDT Results Review: I reviewed the patient's new clinical results. Results from last 7 days Lab Units 11/08/24 0310 11/07/24 1508 SODIUM mmol/L 134* 136 POTASSIUM mmol/L 5.3* 5.1 CHLORIDE mmol/L 97* 96* CO2 mmol/L 24.4 28.0 BUN mg/dL 36.0* 33.3* CREATININE mg/dL 3.55* 3.72* CALCIUM mg/dL 9.0 9.0 BILIRUBIN mg/dL 0.3 0.4 ALK PHOS U/L 48 50 ALT (SGPT) U/L 22 20 AST (SGOT) U/L 20 18 GLUCOSE mg/dL 137* 48* Results from last 7 days Lab Units 11/08/24 0310 11/07/24 1508 WBC 10*3/mm3 15.14* 12.28* HEMOGLOBIN g/dL 14.7 14.4 HEMATOCRIT % 45.7 44.3 PLATELETS 10*3/mm3 154 145 Results from last 7 days Lab Units 11/08/24 0310 11/07/24 1508 MAGNESIUM mg/dL 2.0 1.9 PHOSPHORUS mg/dL 4.1 5.4* I reviewed the patient's new imaging including images and reports. Chest x-ray 11/08/2024 shows possible left lower lobe infiltrate. Echocardiogram 11/07/2024: Interpretation Summary Left ventricular systolic function is normal. Calculated left ventricular EF = 54.9% Left ventricular ejection fraction appears to be 51 - 55%. Left ventricular wall thickness is consistent with mild concentric hypertrophy. Left ventricular diastolic function is consistent with (grade I) impaired relaxation. The left atrial cavity is mildly dilated. No significant structural or functional valvular disease. Chest x-ray shows cardiomegaly with no infiltrate. Medication Review: arformoterol, 15 mcg, Nebulization, BID - RT aspirin, 81 mg, Oral, Daily budesonide, 0.5 mg, Nebulization, BID - RT heparin (porcine), 5,000 Units, Subcutaneous, Q8H hydrocortisone sodium succinate, 50 mg, Intravenous, Q6H insulin lispro, 2-9 Units, Subcutaneous, 4x Daily AC & at Bedtime ipratropium, 0.5 mg, Nebulization, 4x Daily - RT lamoTRIgine, 100 mg, Oral, BID mupirocin, 1 Application, Each Nare, BID nicotine, 1 patch, Transdermal, Q24H pantoprazole, 40 mg, Intravenous, Q AM piperacillin-tazobactam, 4.5 g, Intravenous, Q8H prasugrel, 10 mg, Oral, Daily QUEtiapine, 50 mg, Oral, Nightly revefenacin, 175 mcg, Nebulization, Daily - RT rosuvastatin, 10 mg, Oral, Daily norepinephrine, 0.02-0.3 mcg/kg/min, Last Rate: 0.01 mcg/kg/min (11/07/24 1500) sodium chloride, 75 mL/hr, Last Rate: 75 mL/hr (11/08/24 0410) Assessment & Plan Syncope Type 2 diabetes mellitus Tobacco use CAD GERD Bipolar disorder CKD COPD 58 y.o. male smoker of 1 pack of cigarettes per day with history of HTN, CAD with prior stent, HLD,T2DM, CHF(data deficit as to type/chronicity), COPD, chronic hypoxemic respiratory failure on 2L NC, CKD (data deficit as to severity), bipolar disorder, prior neck surgery, transferred from [facility] after having several syncopal events. No preceding illness. Patient had 3 separate syncopal events. Denied chest pain during event. He does report 1 episode of sharp chest pain at the outside hospital. No evidence of CT scan abnormality on CT of the head and neck. Patient was initially very hypertensive and then became hypotensive requiring pressors. Blood sugars have been low after arrival to this hospital. On arrival he was requiring low-dose norepinephrine. Labs showed elevated lactic acid level and renal failure. Unclear etiology of patient's syncopal events. He has a cardiac history and this could be related to a cardiac event although troponins are only mildly elevated and flat, EKG does not show ischemic changes. Arrhythmia is possible. Possibly secondary to low blood sugars or low blood pressure from vasovagal syncope or hypovolemia although he initially presented with very elevated blood pressures. He denies any chest pain. There was no mention of seizure-like activity although that would be a possibility. His hemodynamic instability raises the question of potential pheochromocytoma or catecholamine secreting paraganglioma. I am concerned about the possibility of sepsis and we will do a infectious workup and start empiric antibiotics. So far nothing positive in terms of cultures. Blood pressures were borderline this morning. Minimalimprovement in renal function. Potassium is up and he was given some Lokelma. Recheck BMP. I am going to continue antibiotics and keep in the ICU for now. I obtained outside records from a fairly recent MRI of the heart which was fairly normal. Plan: 1. For recurrent syncope/hypotension/labile blood pressure: Unclear etiology with multiple possibilities. Check echocardiogram. Check cultures. Empiric antibiotics. Monitor heart rhythm. Monitor volume status with fluids if needed. Pressors as needed. Check metanephrines. 2. For FIORDALIZA: Unclear etiology. I suspect this is a combination of hypovolemia, potentially related to diuretics and BHUPENDRA inhibitor. Will hold diuretics and BHUPENDRA inhibitor. Gentle fluids. Check urine labs. Monitor urine output and labs. 3. For history of hypertension: Hold antihypertensives for now. May need to restart drip if patientdevelops hypertensive urgency that seems to have been the case at presentation. 4. For T2DM/hypoglycemia: Hold oral diabetes medications. Monitor fingersticks and start low-dose correction if needed. 5. For CAD with prior stent: No evidence of ACS. Continue aspirin, prasugrel. 6. For tobacco abuse: Nicotine replacement. Smoking cessation counseling done. 7. For COPD/possible pneumonia: Bronchodilators/inhaled corticosteroids. Empiric antibiotics. CheckCT chest without contrast. 8. For possible adrenal insufficiency: Stress dose steroids for now but will wean soon if hemodynamics improve. 9. Prophylaxis: Subcutaneous heparin. 10. For acute on chronic hypoxemic respiratory failure/history of untreated sleep apnea: Patient requiring up to 6 L nasal cannula (while awake). Hypoxemia seems to have progressed from admission. Inthe setting of recent syncope, I am going to check a VQ scan/lower extremity duplex. Patient is critically ill secondary to hemodynamic instability and has high risk of life-threatening decline in condition. As such, he requires continuous monitoring frequent reassessment for consideration of adjustment Linezolid to minimize this risk. I personally reassessed him multiple times today. Critical care time : 34 minutes.(This excludes time spent performing separately reportable procedures and services). including high complexity decision making to assess, manipulate, and support vitalorgan system failure in this individual who has impairment of one or more vital organ systems such that there is a high probability of imminent or life threatening deterioration in the patient???s con dition. Electronically signed by: Israel Jimenez MD 11/08/24 08:19 EDT *. Please note that portions of this note were completed with [employer] - a voice recognition program. documented in this encounter H&P Notes * Israel Jimenez MD - 11/07/2024 4:52 PM EDT Critical Care ICU Note LOS: 0 days Patient Care Team: Provider, No Known as PCP - General Chief Complaint: Syncope Subjective 58 y.o. male smoker of 1 pack of cigarettes per day with history of HTN, CAD with prior stent, HLD,T2DM, CHF(data deficit as to type/chronicity), COPD, chronic hypoxemic respiratory failure on 2L NC, CKD (data deficit as to severity), bipolar disorder, prior neck surgery, transferred from [facility] after having several syncopal events this morning. Patient was at home this morning and had previously been in his normal state of health. Patient had a sudden onset of syncopal event after becoming dizzy and then falling and possibly hitting his head on a desk. His was home and found him. He regained consciousness but had 2 additional episodes. He was taken to [facility]. While there he had a very high blood pressure in the 200s. His seems to think that he was started on a medicine for blood pressure and then had an acute drop in blood pressure to very low. Records are not clear. He was subsequently started on Levophed. He had a CT scan of the head which showed no evidence of acute abnormality. He also had a CT scan of his cervical spine which showed no acute abnormality. Patient denies recent chest pain. He reports he follows from a cardiac standpoint with a Dr. Anderson. He reports a left heart catheterization and stent approximately 6 months ago and has been on Plavix. He reports compliance with Plavix. No recent illnesses. He wheezes chronically. He is supposed to be on 2 L nasal cannula oxygen but he admits to noncompliance with this. Patient reports that he was previously on Tresiba but this has been stopped recently. He reports that he takes 2 metformin pills twice daily. Patient arrived on norepinephrine. His blood sugars have been low. He reports he is hungry and wants to eat. At the time of exam he was on low-dose norepinephrine. Patient is unclear about his home medications however I was able to find a note that was scanned with the following medications: Omeprazole 40 mg Furosemide 40 mg Tresiba 5 units once daily (patient reports this was stopped recently). Breztri Metformin 500mg 2 twice daily Losartan 100 mg 1/2 tablet daily Metoprolol succinate ER 50 mg 1/2 tablet once daily Albuterol hfa 2 puffs every 6 hrs. Aspirin 81 mg daily Rosuvastatin 20 mg daily Lamotrigine 200 mg BID Viibryd 40 mg qam Quetiapine er 150 mg once daily Venlafaxine 37.5 1 capsule daily Prasugrel 10mg daily Gabapentin 600 mg 2 tablets am, 2 tablets pm Spironolactone 50 mg once daily History taken from: Patient, chart, staff PMH/FH/Social History were reviewed and updated appropriately in the electronic medical record. Review of Systems: Review of 14 systems was completed with positives and pertinent negatives noted in the subjective section. All other systems reviewed and are negative. Objective Vital Signs Temp: [95.3 ??F (35.2 ??C)] 95.3 ??F (35.2 ??C) Heart Rate: [87-92] 90 Resp: [18] 18 BP: (98-110)/(60-75) 102/60 No intake/output data recorded. Body mass index is 36.22 kg/m??. IV drips: norepinephrine, Last Rate: 0.01 mcg/kg/min (11/07/24 1500) Physical Exam: Constitutional: Alert, in no acute distress Head: Normocephalic, abrasion right forehead Eyes: Lids and lashes normal, conjunctivae and sclerae normal. PER ENMT: Ears appear intact with no abnormalities noted Lips normal. Neck: Trachea midline, no JVD Lungs/Resp: Normal effort, symmetric chest rise, no crepitus, moderate diffuse wheezes bilaterally. Heart/CV: Regular rhythm and normal rate, no murmur Abdomen/GI: Soft, nontender, nondistended : Deferred Extremities/MSK: No clubbing or cyanosis. No edema. Pulses: Pulses palpable and equal bilaterally Skin: No bleeding, bruising or rash Heme/Lymph: No cervical or supraclavicular adenopathy. Neurologic: Psychiatric: Moves all extremities with no obvious focal motor deficit. Cranial nerves 2 - 12 grossly intact Non-agitated, normal affect. The above physical exam findings were reviewed and reflect my exam findings as of today's exam. Electronically signed by: Israel Jimenez MD 11/07/24 16:52 EDT Results Review: I reviewed the patient's new clinical results. Results from last 7 days Lab Units 11/07/24 1508 SODIUM mmol/L 136 POTASSIUM mmol/L 5.1 CHLORIDE mmol/L 96* CO2 mmol/L 28.0 BUN mg/dL 33.3* CREATININE mg/dL 3.72* CALCIUM mg/dL 9.0 BILIRUBIN mg/dL 0.4 ALK PHOS U/L 50 ALT (SGPT) U/L 20 AST (SGOT) U/L 18 GLUCOSE mg/dL 48* Results from last 7 days Lab Units 11/07/24 1508 WBC 10*3/mm3 12.28* HEMOGLOBIN g/dL 14.4 HEMATOCRIT % 44.3 PLATELETS 10*3/mm3 145 Results from last 7 days Lab Units 11/07/24 1508 MAGNESIUM mg/dL 1.9 PHOSPHORUS mg/dL 5.4* I reviewed the patient's new imaging including images and reports. Chest x-ray shows cardiomegaly with no infiltrate. Medication Review: methylPREDNISolone sodium succinate, 20 mg, Intravenous, Q12H And fludrocortisone, 200 mcg, Oral, Daily insulin lispro, 2-7 Units, Subcutaneous, 4x Daily AC & at Bedtime mupirocin, 1 Application, Each Nare, BID sodium chloride, 10 mL, Intravenous, Q12H norepinephrine, 0.02-0.3 mcg/kg/min, Last Rate: 0.01 mcg/kg/min (11/07/24 1500) Assessment & Plan Syncope and collapse Type 2 diabetes mellitus Tobacco use CAD GERD Bipolar disorder CKD 58 y.o. male smoker of 1 pack of cigarettes per day with history of HTN, CAD with prior stent, HLD,T2DM, CHF(data deficit as to type/chronicity), COPD, chronic hypoxemic respiratory failure on 2L NC, CKD (data deficit as to severity), bipolar disorder, prior neck surgery, transferred from [facility] after having several syncopal events. No preceding illness. Patient had 3 separate syncopal events. Denied chest pain during event. He does report 1 episode of sharp chest pain at the outside hospital. No evidence of CT scan abnormality on CT of the head and neck. Patient was initially very hypertensive and then became hypotensive requiring pressors. Blood sugars have been low after arrival to this hospital. On arrival he was requiring low-dose norepinephrine. Labs showed elevated lactic acid level and renal failure. Unclear etiology of patient's syncopal events. He has a cardiac history and this could be related to a cardiac event although troponins are only mildly elevated and flat, EKG does not show ischemic changes. Arrhythmia is possible. Possibly secondary to low blood sugars or low blood pressure from vasovagal syncope or hypovolemia although he initially presented with very elevated blood pressures. He denies any chest pain. There was no mention of seizure-like activity although that would be a possibility. His hemodynamic instability raises the question of potential pheochromocytoma or catecholamine secreting paraganglioma. I am concerned about the possibility of sepsis and we will do a infectious workup and start empiric antibiotics. Plan: 1. For recurrent syncope/hypotension/labile blood pressure: Unclear etiology with multiple possibilities. Check echocardiogram. Check cultures. Empiric antibiotics. Monitor heart rhythm. Monitor volume status with fluids if needed. Pressors as needed. Check metanephrines. 2. For FIORDALIZA: Unclear etiology. I suspect this is a combination of hypovolemia, potentially related to diuretics and BHUPENDRA inhibitor. Will hold diuretics and BHUPENDRA inhibitor. Gentle fluids. Check urine labs. Monitor urine output and labs. 3. For history of hypertension: Hold antihypertensives for now. May need to restart drip if patientdevelops hypertensive urgency that seems to have been the case at presentation. 4. For T2DM/hypoglycemia: Hold oral diabetes medications. Monitor fingersticks and start low-dose correction if needed. 5. For CAD with prior stent: No evidence of ACS. Continue aspirin, prasugrel. 6. For tobacco abuse: Nicotine replacement. Smoking cessation counseling done. 7. For COPD: Bronchodilators/inhaled corticosteroids. 8. For possible adrenal insufficiency: Stress dose steroids but will wean quickly if hemodynamics improve. 9. Prophylaxis: Subcutaneous heparin. Patient is critically ill secondary to hemodynamic instability and has high risk of life-threatening decline in condition. As such, he requires continuous monitoring frequent reassessment for consideration of adjustment Linezolid to minimize this risk. I personally reassessed him multiple times today. Critical care time : 48 minutes.(This excludes time spent performing separately reportable procedures and services). including high complexity decision making to assess, manipulate, and support vitalorgan system failure in this individual who has impairment of one or more vital organ systems such that there is a high probability of imminent or life threatening deterioration in the patient???s con dition. Electronically signed by: Israel Jimenez MD 11/07/24 16:52 EDT *. Please note that portions of this note were completed with [employer] - a voice recognition program. documented in this encounter Nursing Notes * Becca Barrientos RN - 11/10/2024 4:02 AM EDT Goal Outcome Evaluation: Plan of Care Reviewed With: patient Progress: improving Outcome Evaluation: VSS. NSR on monitor. 5L NC. No c/o pain. CXR this am. No acute overnight events. Continue with POC. * Vivi Carmona RN - 11/09/2024 6:42 PM EDT Goal Outcome Evaluation: [facility] Pt receiving IV abx as ordered. No complaints at this time. * Sofie Barrientos RN - 11/09/2024 6:26 AM EDT Goal Outcome Evaluation: Plan of Care Reviewed With: patient Progress: no change Patient AxO4, tolerating HFNC. Resp panel negative. Nuclear med low probability for PE. UO: 500 ml + 2 unmeasured occurrence. BM x2. * Deandre Torrez RN - 11/08/2024 7:48 PM EDT Goal Outcome Evaluation: Plan of Care Reviewed With: patient, spouse Progress: no change -Pt on 6 L NC this am, keep sats > 88% -Orthostatic BP done -up in the chair for 6 hours -Diet advanced -Bm x 2, UOP 2 L -repeat BMP, improved -VQ scan, Duplex and CT of chest without contrast done - sat 85% on 6 L NC after coming back from [place] and CT, hiflo ordered -lactic 1.7, respiratory panel sent * Sushila Norman RN - 11/08/2024 10:56 AM EDT WOC consult for abrasions. Visited patient and noted abrasions to forehead, quite small and not open. Other scattered scabbing. Recommend is abrasion is open and draining to treat like skin tear with xeroform/dressing. Can place light layer vaseline to forehead after cleansing. Will sign off. * Deandre Torrez RN - 11/08/2024 10:30 AM EDT Orthostatic BP Supine 121/64 Sitting 105/77 Standing 121/7 * Sofie Barrientos RN - 11/08/2024 6:16 AM EDT Goal Outcome Evaluation: Plan of Care Reviewed With: patient Progress: no change Patient AxO4, tolerating 6L NC. Levo off, 500 ml bolus given pressures stable. 5.3 potassium- lokelma and calcium gluconate ordered. WOC consulted for forehead abrasion UO:900 ml BM x1. * Tabatha Acevedo RN - 11/07/2024 6:32 PM EDT Goal Outcome Evaluation: Plan of Care Reviewed With: patient Progress: no change Outcome Evaluation: Pt arrived from [facility] on 0.02 of levophed after experiencing mutliple episodes of syncope at home. CT [facility]. Levophed on hold shortly after arrival. Blood sugar 50 on arrival. 240 ml OJ given, pt BS remained 51. After 2 more OJs pt came up to 73. Back down to 50s after a couple house. Pt ate 100% dinner tray and d50 given. Last FSBG 140s. [id number] on hold for now. Pt alert and oriented. lactic 4.8 at OSH. 2L LR given per report. lactic 2.4 now. VSS on 6 L NC. inspiratory/expiratory wheezes. Nebs started. documented in this encounter Miscellaneous Notes * Case Management/Social Work - Amara Rankin RN - 11/11/2024 11:27 AM EDT Case Management Discharge Note Final Note: Pt is discharging home today and is on room air. Family will provide transportation viaprivate vehicle. No discharge needs identified. Selected Continued Care - Discharged on 11/11/2024 Admission date: 11/07/2024 - Discharge disposition: Home or Self Care Destination No services have been selected for the patient. Durable Medical Equipment No services have been selected for the patient. Dialysis/Infusion No services have been selected for the patient. Home Medical Care No services have been selected for the patient. Therapy No services have been selected for the patient. Community Resources No services have been selected for the patient. Community & DME No services have been selected for the patient. Transportation Services Transportation: Private Transportation Private: Car Final Discharge Disposition Code: 01 - home or self-care * Case Management/Social Work - Floridalma Childers RN - 11/08/2024 11:17 AM EDT Discharge Planning Assessment [facility] Patient Name: Milton Bassett Today's Date: 11/08/2024 Admit Date: 11/07/2024 Plan: Home Discharge Needs Assessment Row Name 11/08/24 1110 Living Environment People in Home spouse Current Living Arrangements home Primary Care Provided by self Provides Primary Care For no one Family Caregiver if Needed spouse Family Caregiver Names Laura Bassett (Spouse) [phone] Quality of Family Relationships supportive Able to Return to Prior Arrangements yes Resource/Environmental Concerns Transportation Concerns none Transition Planning Patient/Family Anticipates Transition to home with family Patient/Family Anticipated Services at Transition none Transportation Anticipated family or friend will provide Discharge Needs Assessment Readmission Within the Last 30 Days no previous admission in last 30 days Equipment Currently Used at Home bp cuff;nebulizer;oxygen;pulse ox Discharge Plan Row Name 11/08/24 1112 Plan Plan Home Patient/Family in Agreement with Plan yes Plan Comments Spoke with Mr. Bassett and Spouse at the bedside. He lives with his Spouse in [place]. He is independent with ADL's and uses a BP cuff, nebulizer, POX, and 2L Oxygen through [facility] in [place]. He does not use home health services. His preferred Pharmacy is [facility] in [place]. His PCP is Sera Allen and he has [place] Medicare insurance. Discharge plan is home. CM will continue to follow for discharge needs. Final Discharge Disposition Code 01 - home or self-care Continued Care and Services - Admitted Since 11/07/2024 No active coordination exists. 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 Abuse/Neglect No documentation. Legal No documentation. Substance Abuse No documentation. Patient Forms No documentation. Floridalma Childers RN documented in this encounter Plan of Treatment Not on file documented as of this encounter Procedures Procedure Name Priority Date/Time Associated Diagnosis Comments POCT GLUCOSE FINGERSTICK Routine 7:55 AM EDT CBC (NO DIFF) Routine 11/11/2024 5:14 AM EDT COMPREHENSIVE METABOLIC PANEL Routine 11/11/2024 5:14 AM EDT POCT GLUCOSE FINGERSTICK Routine 025 8:13 PM EDT SCANNED - TELEMETRY 11/10/2024 7 :42 PM EDT POCT GLUCOSE FINGERSTICK Routine 025 4:54 PM EDT POCT GLUCOSE FINGERSTICK Routine 025 11:41 AM EDT POCT GLUCOSE FINGERSTICK Routine 025 7:49 AM EDT CBC (NO DIFF) Routine 11/10/2024 4:13 AM EDT COMPREHENSIVE METABOLIC PANEL Routine 11/10/2024 4:13 AM EDT XR CHEST 1 VW Routine 11/10/2024 3:00 AM EDT POCT GLUCOSE FINGERSTICK Routine 7:37 PM EDT POCT GLUCOSE FINGERSTICK Routine 4:45 PM EDT POCT GLUCOSE FINGERSTICK Routine 12:16 PM EDT SCANNED - TELEMETRY 11/09/2024 7 :31 AM EDT POCT GLUCOSE FINGERSTICK Routine 7:21 AM EDT CBC (NO DIFF) Routine 11/09/2024 3:21 AM EDT PHOSPHORUS Routine 11/09/2024 3:21 AM EDT MAGNESIUM Routine 11/09/2024 3:21 AM EDT COMPREHENSIVE METABOLIC PANEL Routine 11/09/2024 3:21 AM EDT POCT GLUCOSE FINGERSTICK Routine 7:55 PM EDT RESPIRATORY PANEL PCR W/ COVID-19 (SARS-COV-2), 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 SWAB IN UTM/VTP, 2 HR TAT Routine 11/08/2024 6:31 PM EDT LACTIC ACID, PLASMA Routine 11/08/2024 6 :28 PM EDT POCT GLUCOSE FINGERSTICK Routine 025 6:[address] CHEST WO CONTRAST DIAGNOSTIC Routine 11/08/2024 5:55 PM EDT NM LUNG VENTILATION PERFUSION STAT 11/08/2024 5:42 PM EDT DUPLEX VENOUS LOWER EXTREMITY BILATERAL CAR STAT 11/08/2024 4:39 PM EDT BASIC METABOLIC PANEL STAT 11/08/2024 4:21 PM EDT SCANNED - TELEMETRY 11/08/2024 2 :29 PM EDT POCT GLUCOSE FINGERSTICK Routine 025 11:52 AM EDT XR CHEST 1 VW STAT 11/08/2024 9:34 AM EDT POCT GLUCOSE FINGERSTICK Routine 025 7:18 AM EDT CBC WITH AUTO DIFFERENTIAL Routine 11/08/2024 3:10 AM EDT PHOSPHORUS Routine 11/08/2024 3:10 AM EDT MAGNESIUM Routine 11/08/2024 3:10 AM EDT COMPREHENSIVE METABOLIC PANEL Routine 11/08/2024 3:10 AM EDT LACTIC ACID, REFLEX STAT 11/08/2024 1 2:04 AM EDT WOUND OSTOMY EVAL AND TREAT Routine 11/07/2024 10:29 PM EDT LACTIC ACID, REFLEX STAT 11/07/2024 8 :52 PM EDT POCT GLUCOSE FINGERSTICK Timed 025 8:02 PM EDT POCT GLUCOSE FINGERSTICK Timed 025 7:09 PM EDT METANEPHRINES, PHEOCHROMOCYTOMA EVALUATION Routine 11/07/2024 6:12 PM EDT URINALYSIS, MICROSCOPIC ONLY Routine 11/07/2024 6:12 PM EDT URINALYSIS W/ CULTURE IF INDICATED STAT 11/07/2024 6:12 PM EDT UREA NITROGEN, URINE Routine 11/07/2024 6:12 PM EDT URINE DRUG SCREEN STAT 11/07/2024 6:1 2 PM EDT SODIUM, URINE, RANDOM Routine 11/07/2024 6:12 PM EDT FENTANYL, URINE STAT 11/07/2024 6:12 PM EDT CREATININE URINE RANDOM (KIDNEY FUNCTION) GFR COMPONENT Routine 11/07/2024 6:12 PM EDT POCT GLUCOSE FINGERSTICK Timed 025 6:07 PM EDT POCT GLUCOSE FINGERSTICK Timed 025 5:37 PM EDT RESPIRATORY CULTURE Routine 11/07/2024 5 :31 PM EDT LACTIC ACID, REFLEX STAT 11/07/2024 5 :30 PM EDT HIGH SENSITIVITIY TROPONIN T 1HR Timed 11/07/2024 5:29 PM EDT METANEPHRINES, FRAC. FREE, PLASMA Routine 11/07/2024 5:29 PM EDT ALDOSTERONE Routine 11/07/2024 5:29 PM EDT RENIN DIRECT ASSAY Routine 11/07/2024 5: 29 PM EDT BLOOD CULTURE STAT 11/07/2024 5:29 PM EDT BLOOD CULTURE STAT 11/07/2024 5:29 PM EDT MRSA DNA PROBE Routine 11/07/2024 5:19 PM EDT POCT GLUCOSE FINGERSTICK Routine 025 4:55 PM EDT ECHO COMPLETE W/ DOPPLER AND COLOR FLOW STAT 11/07/2024 3:51 PM EDT ECG 12-LEAD STAT 11/07/2024 3:43 PM EDT POCT GLUCOSE FINGERSTICK Routine 025 3:38 PM EDT WOUND OSTOMY EVAL AND TREAT Routine 11/07/2024 3:19 PM EDT POCT GLUCOSE FINGERSTICK Routine 025 3:10 PM EDT PROCALCITONIN STAT 11/07/2024 3:08 PM EDT CBC WITH AUTO DIFFERENTIAL STAT 11/07/2024 3:08 PM EDT TROPONIN STAT 11/07/2024 3:08 PM EDT PROTIME-INR STAT 11/07/2024 3:08 PM EDT PHOSPHORUS STAT 11/07/2024 3:08 PM EDT B-TYPE NATRIURETIC PEPTIDE STAT 11/07/2024 3:08 PM EDT MAGNESIUM STAT 11/07/2024 3:08 PM EDT LACTIC ACID, PLASMA STAT 11/07/2024 3 :08 PM EDT CORTISOL STAT 11/07/2024 3:08 PM EDT COMPREHENSIVE METABOLIC PANEL STAT 11/07/2024 3:08 PM EDT XR CHEST 1 VW STAT 11/07/2024 3:02 PM EDT HEMOGLOBIN A1C STAT 11/07/2024 3:[address] OUTSIDE HEAD Routine 11/07/2024 2:[address] OUTSIDE NECK Routine 11/07/2024 2:56 PM EDT XR OUTSIDE CHEST Routine 11/07/2024 2:55 PM EDT POCT GLUCOSE FINGERSTICK Routine 025 2:38 PM EDT documented in this encounter Results * POC Glucose 4x Daily Before Meals & at Bedtime (11/11/2024 7:55 AM EDT) Glucose 72 70 - 130 mg/dL 11/11/2024 8:01 AM EDT [facility] Comment:Serial Number: [id number]: [id number] Blood 11/11/2024 7:55 AM EDT 11/11/2024 8:01 AM EDT us Israel Jimenez MD POINT OF CARE TEST ORDERABLE S Final Result [facility]
[address] [place] [address], * (ABNORMAL) CBC (No Diff) (11/11/2024 5:14 AM EDT) WBC 7.92 3.40 - 10.80 10*3/mm3 11/11/2024 5:48 AM EDT [facility] RBC 4.69 4.14 - 5.80 10*6/mm3 11/11/2024 5:48 AM EDT [facility] Hemoglobin 13.4 13.0 - 17.7 g/dL 11/11/2024 5:48 AM EDT [facility] Hematocrit 42.9 37.5 - 51.0 % 11/11/2024 5:48 AM EDT [facility] MCV 91.5 79.0 - 97.0 fL 11/11/2024 5:48 AM EDT [facility] MCH 28.6 26.6 - 33.0 pg 11/11/2024 5:48 AM EDT [facility] MCHC 31.2(L) 31.5 - 35.7 g/dL 11/11/2024 5:48 AM EDT [facility] RDW 14.9 12.3 - 15.4 % 11/11/2024 5:48 AM EDT [facility] RDW-SD 50.1 37.0 - 54.0 fl 11/11/2024 5:48 AM EDT [facility] MPV 11.7 6.0 - 12.0 fL 11/11/2024 5:48 AM EDT [facility] Platelets 111(L) 140 - 450 10*3/mm3 11/11/2024 5:48 AM EDT [facility] Blood Venipuncture / Unknown 11/11/2024 5:14 AM EDT 11/11/2024 5:36 AM EDT us Israel Jimenez MD LAB BLOOD ORDERABLES Final R esult [facility]
[address] [place] [address], * (ABNORMAL) Comprehensive Metabolic Panel (11/11/2024 5:14 AM EDT) Glucose 102(H) 65 - 99 mg/dL 11/11/2024 6:03 AM EDT [facility] BUN 19.4 6.0 - 20.0 mg/dL 11/11/2024 6:03 AM EDT [facility] Creatinine 1.38(H) 0.76 - 1.27 mg/dL 11/11/2024 6:03 AM EDT [facility] Sodium 142 136 - 145 mmol/L 11/11/2024 6:03 AM EDT [facility] Potassium 4.1 3.5 - 5.2 mmol/L 11/11/2024 6:03 AM [facility] Comment:Slight hemolysis det ected by analyzer. Result may be falsely elevated. Chloride 104 98 - 107 mmol/L 11/11/2024 6:03 AM [facility] CO2 28.0 22.0 - 29.0 mmol/L 11/11/2024 6:03 AM [facility] Calcium 8.7 8.6 - 10.5 mg/dL 11/11/2024 6:03 AM [facility] Total Protein 6.0 6.0 - 8.5 g/dL 11/11/2024 6:03 AM [facility] Albumin 3.5 3.5 - 5.2 g/dL 11/11/2024 6:03 AM [facility] ALT (SGPT) 41 1 - 41 U/L 11/11/2024 6:03 AM [facility] AST (SGOT) 35 1 - 40 U/L 11/11/2024 6:03 AM [facility] Alkaline Phosphatase 42 39 - 117 U/L 11/11/2024 6:03 AM [facility] Total Bilirubin 0.3 0.0 - 1.2 mg/dL 11/11/2024 6:03 AM [facility] Globulin 2.5 gm/dL 11/11/2024 6:03 AM [facility] Comment:Calculated Result A/G Ratio 1.4 g/dL 11/11/2024 6:03 AM [facility] BUN/Creatinine Ratio 14.1 7.0 - 25.0 11/11/2024 6:03 AM [facility] Anion Gap 10.0 5.0 - 15.0 mmol/L 11/11/2024 6:03 AM [facility] eGFR 59.6(L) >60.0 mL/min/1.7 3 11/11/2024 6:03 AM [facility] Blood Venipuncture / Unknown 11/11/2024 5:14 AM EDT 11/11/2024 5:36 AM EDT Narrative [facility] - 11/11/2024 6:03 AM EDT GFR Categories in Chronic Kidney Disease (CKD) GFR Category GFR (mL/min/1.73) Interpretation G1 90 or greater Normal or high (1) G2 60-89 Mild decrease (1) G3a 45-59 Mild to moderate decrease G3b 30-44 Moderate to severe decrease G4 15-29 Severe decrease G5 14 or less Kidney failure (1)In the absence of evidence of kidney disease, neither GFR category G1 or G2 fulfill the criteria for CKD. eGFR calculation 2020 CKD-EPI creatinine equation, which does not include race as a factor Israel Jimenez MD LAB BLOOD ORDERABLES Final R esult Performing Organization Address [facility] Co de Phone Number [facility]
[address] [place] [address], * (ABNORMAL) POC Glucose Once (11/10/2024 8:13 PM EDT) [facility] Signature Glucose 166(H) 70 - 130 mg/dL 11/10/2024 8:16 PM EDT [facility] Comment:Serial Number: [id number]: [id number] Blood 11/10/2024 8:13 PM EDT 11/10/2024 8:16 PM EDT Yonatan Lebron MD POINT OF CARE TEST ORDERABLES Final Result Performing Organization Address [facility] Co de Phone Number [facility]
[address] [place] [address], [place] [phone] * Telemetry Scan (11/10/2024 7:42 PM EDT) [facility] Onbase ECG ORDERABLES Final Result * (ABNORMAL) POC Glucose Once (11/10/2024 4:54 PM EDT) Glucose 233(H) 70 - 130 mg/dL 11/10/2024 4:57 PM EDT [facility] Comment:Serial Number: [id number]: [id number] Blood 11/10/2024 4:54 PM EDT 11/10/2024 4:57 PM EDT Yonatan Lebron MD POINT OF CARE TEST ORDERABLES Final Result Performing Organization Address [facility] de Phone Number [facility]
[address] [place] [address], * (ABNORMAL) POC Glucose 4x Daily Before Meals & at Bedtime (11/10/2024 11:41 AM EDT) Glucose 174(H) 70 - 130 mg/dL 11/10/2024 11:51 AM EDT [facility] Comment:Serial Number: [id number]: [id number] Blood 11/10/2024 11:4 1 AM EDT 11/10/2024 11:51 AM EDT Israel Jimenez MD POINT OF CARE TEST ORDERABLE S Final Result Performing Organization Address [facility] de Phone Number [facility]
[address] [place] [address], * (ABNORMAL) POC Glucose 4x Daily Before Meals & at Bedtime (11/10/2024 7:49 AM EDT) Glucose 133(H) 70 - 130 mg/dL 11/10/2024 7:52 AM EDT [facility] Comment:Serial Number: [id number]: [id number] Nova Comment 1 Notified Patients RN 11/10/2024 7:52 AM EDT [facility] Blood 11/10/2024 7:49 AM EDT 11/10/2024 7:52 AM EDT us Israel Jimenez MD POINT OF CARE TEST ORDERABLE S Final Result [facility]
[address] [place] [address], [place] [phone] * (ABNORMAL) CBC (No Diff) (11/10/2024 4:13 AM EDT) WBC 9.12 3.40 - 10.80 10*3/mm3 11/10/2024 4:59 AM EDT [facility] RBC 4.72 4.14 - 5.80 10*6/mm3 11/10/2024 4:59 AM EDT [facility] Hemoglobin 13.4 13.0 - 17.7 g/dL 11/10/2024 4:59 AM EDT [facility] Hematocrit 42.4 37.5 - 51.0 % 11/10/2024 4:59 AM EDT [facility] MCV 89.8 79.0 - 97.0 fL 11/10/2024 4:59 AM EDT [facility] MCH 28.4 26.6 - 33.0 pg 11/10/2024 4:59 AM EDT [facility] MCHC 31.6 31.5 - 35.7 g/dL 11/10/2024 4:59 AM EDT [facility] RDW 15.0 12.3 - 15.4 % 11/10/2024 4:59 AM EDT [facility] RDW-SD 49.1 37.0 - 54.0 fl 11/10/2024 4:59 AM EDT [facility] MPV 11.9 6.0 - 12.0 fL 11/10/2024 4:59 AM EDT [facility] Platelets 109(L) 140 - 450 10*3/mm3 11/10/2024 4:59 AM EDT [facility] Blood Venipuncture / Unknown 11/10/2024 4:13 AM EDT 11/10/2024 4:52 AM EDT us Israel Jimenez MD LAB BLOOD ORDERABLES Final R esult [facility]
[address] [place] [address], * (ABNORMAL) Comprehensive Metabolic Panel (11/10/2024 4:13 AM EDT) Glucose 65 65 - 99 mg/dL 11/10/2024 5:15 AM EDT [facility] BUN 19.7 6.0 - 20.0 mg/dL 11/10/2024 5:15 AM EDT [facility] Creatinine 1.44(H) 0.76 - 1.27 mg/dL 11/10/2024 5:15 AM EDT [facility] Sodium 141 136 - 145 mmol/L 11/10/2024 5:15 AM EDT [facility] Potassium 4.3 3.5 - 5.2 mmol/L 11/10/2024 5:15 AM EDT [facility] Chloride 103 98 - 107 mmol/L 11/10/2024 5:15 AM EDT [facility] CO2 30.0(H) 22.0 - 29.0 mmol/L 11/10/2024 5:15 AM EDT [facility] Calcium 9.2 8.6 - 10.5 mg/dL 11/10/2024 5:15 AM EDT [facility] Total Protein 6.5 6.0 - 8.5 g/dL 11/10/2024 5:15 AM EDT [facility] Albumin 3.7 3.5 - 5.2 g/dL 11/10/2024 5:15 AM EDT [facility] ALT (SGPT) 24 1 - 41 U/L 11/10/2024 5:15 AM EDT [facility] AST (SGOT) 23 1 - 40 U/L 11/10/2024 5:15 AM EDT [facility] Alkaline Phosphatase 39 39 - 117 U/L 11/10/2024 5:15 AM EDT [facility] Total Bilirubin 0.3 0.0 - 1.2 mg/dL 11/10/2024 5:15 AM EDT [facility] Globulin 2.8 gm/dL 11/10/2024 5:15 AM EDT [facility] Comment:Calculated Result A/G Ratio 1.3 g/dL 11/10/2024 5:15 AM EDT [facility] BUN/Creatinine Ratio 13.7 7.0 - 25.0 11/10/2024 5:15 AM EDT [facility] Anion Gap 8.0 5.0 - 15.0 mmol/L 11/10/2024 5:15 AM EDT [facility] eGFR 56.7(L) >60.0 mL/min/1.7 3 11/10/2024 5:15 AM EDT [facility] Blood Venipuncture / Unknown 11/10/2024 4:13 AM EDT 11/10/2024 4:49 AM EDT [facility] - 11/10/2024 5:15 AM EDT GFR Categories in Chronic Kidney Disease (CKD) GFR Category GFR (mL/min/1.73) Interpretation G1 90 or greater Normal or high (1) G2 60-89 Mild decrease (1) G3a 45-59 Mild to moderate decrease G3b 30-44 Moderate to severe decrease G4 15-29 Severe decrease G5 14 or less Kidney failure (1)In the absence of evidence of kidney disease, neither GFR category G1 or G2 fulfill the criteria for CKD. eGFR calculation 2020 CKD-EPI creatinine equation, which does not include race as a factor us Israel Jimenez MD LAB BLOOD ORDERABLES Final R esult [facility]
[address] [place] [address], * XR Chest 1 View (11/10/2024 3:00 AM EDT) Anatomical Region Laterality Modality Body N/A Radiographic Apurva ging 11/10/2024 9:30 AM EDT Impressions 11/10/2024 9:32 AM EDT Impression: 1.Bibasilar densities which could relate to atelectasis. A left pleural effusion not excluded. 2.Cardiomegaly. Some vascular congestion not excluded. Electronically Signed: Elliott Lopez MD 11/10/2024 9:32 AM EDT Workstation ID: [id number] Narrative 11/10/2024 9:32 AM EDT XR CHEST 1 VW Date of Exam: 11/10/2024 2:50 AM EDT Indication: f/u respiratory illness.. Comparison: CT chest November 08, 2024 Findings: The patient had previous cervical spine surgery. The heart looks enlarged. There is density in the basilar areas which could relate to atelectasis. A left pleural effusion not excluded. There is slight prominence of pulmonary vascular markings. Some vascular congestion not entirely excluded. Procedure Note Elliott Lopez MD - 11/10/2024 XR CHEST 1 VW Date of Exam: 11/10/2024 2:50 AM EDT Indication: f/u respiratory illness.. Comparison: CT chest November 08, 2024 Findings: The patient had previous cervical spine surgery. The heart looks enlarged.There is density in the basilar areas which could relate to atelectasis. Aleft pleural effusion not excluded. There is slight prominence ofpulmonary vascular markings. Some vascular congestion not entirely excluded. IMPRESSION: Impression: 1.Bibasilar densities which could relate to atelectasis. A left pleuraleffusion not excluded. 2.Cardiomegaly. Some vascular congestion not excluded. Electronically Signed: Elliott Lopez MD 11/10/2024 9:32 AM EDT Workstation ID: [id number] Israel Jimenez MD IMG DIAGNOSTIC IMAGING ORDER NAYE Final Result * (ABNORMAL) POC Glucose Once (11/09/2024 7:37 PM EDT) Glucose 171(H) 70 - 130 mg/dL 11/09/2024 7:38 PM EDT [facility] Comment:Serial Number: [id number]: [id number] Blood 11/09/2024 7:37 PM EDT 11/09/2024 7:38 PM EDT us Israel Jimenez MD POINT OF CARE TEST ORDERABLE S Final Result Performing Organization Address [facility] Co de Phone Number [facility]
[address] [place] [address], * (ABNORMAL) POC Glucose Once (11/09/2024 4:45 PM EDT) Glucose 162(H) 70 - 130 mg/dL 11/09/2024 4:49 PM EDT [facility] Comment:Serial Number: [id number]: [id number] Blood 11/09/2024 4:45 PM EDT 11/09/2024 4:49 PM EDT us Israel Jimenez MD POINT OF CARE TEST ORDERABLE S Final Result Performing Organization Address [facility] de Phone Number [facility]
[address] [place] [address], * (ABNORMAL) POC Glucose 4x Daily Before Meals & at Bedtime (11/09/2024 12:16 PM EDT) Glucose 173(H) 70 - 130 mg/dL 11/09/2024 12:18 PM EDT [facility] Comment:Serial Number: [id number]: [id number] Blood 11/09/2024 12:1 6 PM EDT 11/09/2024 12:18 PM EDT us Israel Jimenez MD POINT OF CARE TEST ORDERABLE S Final Result Performing Organization Address [facility] de Phone Number [facility]
[address] [place] [address], * Telemetry Scan (11/09/2024 7:31 AM EDT) [facility] Onbase ECG ORDERABLES Final Result * (ABNORMAL) POC Glucose 4x Daily Before Meals & at Bedtime (11/09/2024 7:21 AM EDT) Glucose 156(H) 70 - 130 mg/dL 11/09/2024 7:23 AM EDT [facility] Comment:Serial Number: [id number]: [id number] Blood 11/09/2024 7:21 AM EDT 11/09/2024 7:23 AM EDT Israel Jimenez MD POINT OF CARE TEST ORDERABLE S Final Result [facility]
[address] [place] [address], * (ABNORMAL) Phosphorus (11/09/2024 3:21 AM EDT) Phosphorus 2.0(L) 2.5 - 4.5 mg/dL 11/09/2024 5:17 AM EDT [facility] Blood Venipuncture / Unknown 11/09/2024 3:21 AM EDT 11/09/2024 4:14 AM EDT Israel Jimenez MD LAB BLOOD ORDERABLES Final R esult [facility]
[address] [place] [address], * Magnesium (11/09/2024 3:21 AM EDT) Magnesium 2.0 1.6 - 2.6 mg/dL 11/09/2024 5:07 AM EDT [facility] Blood Venipuncture / Unknown 11/09/2024 3:21 AM EDT 11/09/2024 4:14 AM EDT Israel Jimenez MD LAB BLOOD ORDERABLES Final R esult [facility]
[address] [place] [address], * (ABNORMAL) CBC (No Diff) (11/09/2024 3:21 AM EDT) WBC 13.18(H) 3.40 - 10.80 10*3/mm3 11/09/2024 4:12 AM EDT [facility] RBC 4.90 4.14 - 5.80 10*6/mm3 11/09/2024 4:12 AM EDT [facility] Hemoglobin 13.7 13.0 - 17.7 g/dL 11/09/2024 4:12 AM EDT [facility] Hematocrit 44.1 37.5 - 51.0 % 11/09/2024 4:12 AM EDT [facility] MCV 90.0 79.0 - 97.0 fL 11/09/2024 4:12 AM EDT [facility] MCH 28.0 26.6 - 33.0 pg 11/09/2024 4:12 AM EDT [facility] MCHC 31.1(L) 31.5 - 35.7 g/dL 11/09/2024 4:12 AM EDT [facility] RDW 15.1 12.3 - 15.4 % 11/09/2024 4:12 AM EDT [facility] RDW-SD 49.8 37.0 - 54.0 fl 11/09/2024 4:12 AM EDT [facility] MPV 12.0 6.0 - 12.0 fL 11/09/2024 4:12 AM EDT [facility] Platelets 117(L) 140 - 450 10*3/mm3 11/09/2024 4:12 AM EDT [facility] Blood Venipuncture / Unknown 11/09/2024 3:21 AM EDT 11/09/2024 4:09 AM EDT Israel Jimenez MD LAB BLOOD ORDERABLES Final R esult [facility]
[address] [place] [address], * (ABNORMAL) Comprehensive Metabolic Panel (11/09/2024 3:21 AM EDT) Glucose 134(H) 65 - 99 mg/dL 11/09/2024 5:07 AM EDT [facility] BUN 26.4(H) 6.0 - 20.0 mg/dL 11/09/2024 5:07 AM EDT [facility] Creatinine 1.73(H) 0.76 - 1.27 mg/dL 11/09/2024 5:07 AM EDT [facility] Sodium 134(L) 136 - 145 mmol/L 11/09/2024 5:07 AM EDT [facility] Potassium 4.8 3.5 - 5.2 mmol/L 11/09/2024 5:07 AM EDT [facility] Chloride 100 98 - 107 mmol/L 11/09/2024 5:07 AM EDT [facility] CO2 24.2 22.0 - 29.0 mmol/L 11/09/2024 5:07 AM EDT [facility] Calcium 9.2 8.6 - 10.5 mg/dL 11/09/2024 5:07 AM EDT [facility] Total Protein 6.6 6.0 - 8.5 g/dL 11/09/2024 5:07 AM EDT [facility] Albumin 3.7 3.5 - 5.2 g/dL 11/09/2024 5:07 AM EDT [facility] ALT (SGPT) 16 1 - 41 U/L 11/09/2024 5:07 AM EDT [facility] AST (SGOT) 15 1 - 40 U/L 11/09/2024 5:07 AM EDT [facility] Alkaline Phosphatase 42 39 - 117 U/L 11/09/2024 5:07 AM EDT [facility] Total Bilirubin 0.3 0.0 - 1.2 mg/dL 11/09/2024 5:07 AM EDT [facility] Globulin 2.9 gm/dL 11/09/2024 5:07 AM EDT [facility] Comment:Calculated Result A/G Ratio 1.3 g/dL 11/09/2024 5:07 AM EDT [facility] BUN/Creatinine Ratio 15.3 7.0 - 25.0 11/09/2024 5:07 AM EDT [facility] Anion Gap 9.8 5.0 - 15.0 mmol/L 11/09/2024 5:07 AM EDT [facility] eGFR 45.5(L) >60.0 mL/min/1.7 3 11/09/2024 5:07 AM T [facility] Blood Venipuncture / Unknown 11/09/2024 3:21 AM EDT 11/09/2024 4:14 AM EDT [facility] - 11/09/2024 5:07 AM EDT GFR Categories in Chronic Kidney Disease (CKD) GFR Category GFR (mL/min/1.73) Interpretation G1 90 or greater Normal or high (1) G2 60-89 Mild decrease (1) G3a 45-59 Mild to moderate decrease G3b 30-44 Moderate to severe decrease G4 15-29 Severe decrease G5 14 or less Kidney failure (1)In the absence of evidence of kidney disease, neither GFR category G1 or G2 fulfill the criteria for CKD. eGFR calculation 2020 CKD-EPI creatinine equation, which does not include race as a factor us Israel Jimenez MD LAB BLOOD ORDERABLES Final R esult [facility]
[address] [place] [address], [place] [phone] * (ABNORMAL) POC Glucose Once (11/08/2024 7:55 PM EDT) Pathologist [facility] Glucose 174(H) 70 - 130 mg/dL 11/08/2024 7:57 PM EDT [facility] Comment:Serial Number: [id number]: [id number] Blood 11/08/2024 7:55 PM EDT 11/08/2024 7:57 PM EDT Israel Jimenez MD POINT OF CARE TEST ORDERABLE S Final Result [facility]
[address] [place] [address], [place] [phone] * Respiratory Panel PCR w/COVID-19(SARS-CoV-2) WALT/RADHA/YANI/PAD/COR/ANISHA In-House, 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 Swab in UTM/VTM, 2 HR TAT - Swab, Nasopharynx (11/08/2024 6:31 PM EDT) [facility] ADENOVIRUS, PCR Not Detected Not Detected BIOFIRE TORCH 11/08/2024 7:54 PM EDT [facility] Coronavirus 229E Not Detected Not Detected BIOFIRE TORCH 11/08/2024 7:54 PM EDT [facility] Coronavirus HKU1 Not Detected Not Detected BIOFIRE TORCH 11/08/2024 7:54 PM EDT [facility] Coronavirus NL63 Not Detected Not Detected BIOFIRE TORCH 11/08/2024 7:54 PM EDT [facility] Coronavirus OC43 Not Detected Not Detected BIOFIRE TORCH 11/08/2024 7:54 PM EDT [facility] COVID19 Not Detected Not Detected - Ref. Range BIOFIRE TORCH 11/08/2024 7:54 PM EDT [facility] Human Metapneumovirus Not Detected Not Detected BIOFIRE TORCH 11/08/2024 7:54 PM EDT [facility] Human Rhinovirus/Enterov irus Not Detected Not Detected BIOFIRE TOR 11/08/2024 7:54 PM EDT [facility] Influenza A PCR Not Detected Not Detected BIOFIRE TORCH 11/08/2024 7:54 PM EDT [facility] Influenza B PCR Not Detected Not Detected BIOFIRE TOR 11/08/2024 7:54 PM EDT [facility] Parainfluenza Virus 1 Not Detected Not Detected BIOFIRE TOR 11/08/2024 7:54 PM EDT [facility] Parainfluenza Virus 2 Not Detected Not Detected BIOFIRE TOR 11/08/2024 7:54 PM EDT [facility] Parainfluenza Virus 3 Not Detected Not Detected BIOFIRE TOR 11/08/2024 7:54 PM EDT [facility] Parainfluenza Virus 4 Not Detected Not Detected BIOFIRE TOR 11/08/2024 7:54 PM EDT [facility] RSV, PCR Not Detected Not Detected BIOFIRE TOR 11/08/2024 7:54 PM EDT [facility] Bordetella pertussis pcr Not Detected Not Detected BIOFIRE TOR 11/08/2024 7:54 PM EDT [facility] Bordetella parapertussis PCR Not Detected Not Detected BIOFIRE TOR 11/08/2024 7:54 PM EDT [facility] Chlamydophila pneumoniae PCR Not Detected Not Detected BIOFIRE TOR 11/08/2024 7:54 PM EDT [facility] Mycoplasma pneumo by PCR Not Detected Not Detected BIOFIRE TOR 11/08/2024 7:54 PM EDT [facility] Swab Nasopharyngeal structure / Unknown Collection / Unknown 11/08/2024 6:31 PM EDT 11/08/2024 7:03 PM EDT [facility] - 11/08/2024 7:54 PM EDT In the setting of a positive respiratory panel with a viral infection PLUS a negative procalcitonin without other underlying concern for bacterial infection, consider observing off antibiotics or discontinuation of antibiotics and continue supportive care. If the respiratory panel is positive for atypical bacterial infection (Bordetella pertussis, Chlamydophila pneumoniae, or Mycoplasma pneumoniae), consider antibiotic de-escalation to target atypical bacterial infection. Dina Sanchez APRN MICROBIOLOGY - GENERAL ORDE RABLES Final Result Performing Organization Address [facility] de Phone Number [facility]
[address] [place] [address], * Lactic Acid, Plasma (11/08/2024 6:28 PM EDT) Pathologist [facility] Lactate 1.7 0.5 - 2.0 mmol/L 11/08/2024 7:00 PM EDT [facility] Comment:Falsely depressed re sults may occur on samples drawn from patients receiving N-Acetylcysteine (NAC) or Metamizole. Blood Venipuncture / Unknown 11/08/2024 6:28 PM EDT 11/08/2024 6:41 PM EDT Dina Sanchez APRN LAB BLOOD ORDERABLES Final Result Performing Organization Address [facility] de Phone Number [facility]
[address] [place] [address], * (ABNORMAL) POC Glucose Once (11/08/2024 6:06 PM EDT) Glucose 146(H) 70 - 130 mg/dL 11/08/2024 6:08 PM EDT [facility] Comment:Serial Number: [id number]: [id number] Blood 11/08/2024 6:06 PM EDT 11/08/2024 6:08 PM EDT Israel Jimenez MD POINT OF CARE TEST ORDERABLE S Final Result Performing Organization Address [facility] de Phone Number [facility]
[address] [phone], * CT Chest Without Contrast Diagnostic (11/08/2024 5:55 PM EDT) Anatomical Region Laterality Modality Chest N/A Computed Tomogra phy 11/09/2024 8:12 AM EDT Impressions 11/09/2024 8:16 AM EDT Impression: 1.Bilateral lower lung airspace disease suggestive of multifocal pneumonia. 2.Trace bilateral pleural effusions. Electronically Signed: Rah Mayberry MD 11/09/2024 8:16 AM EDT Workstation ID: [id number] Narrative 11/09/2024 8:[address] CHEST WO CONTRAST DIAGNOSTIC Date of Exam: 11/08/2024 5:51 PM EDT Indication: Possible left lower lobe infiltrate. Comparison: None available. Technique: Axial CT images were obtained of the chest without contrast administration. Reconstructed coronal and sagittal images were also obtained. Automated exposure control and iterative construction methods were used. Findings: MEDIASTINUM: Mitral annular calcification. Aortic and heart size are normal. No mass nor pericardial effusion. CORONARY ARTERIES: There is calcified atherosclerotic disease. LUNGS: Bilateral lower lung airspace disease suggestive of multifocal pneumonia. PLEURAL SPACE: Trace bilateral pleural effusions. LYMPH NODES: There are no pathologically enlarged lymph nodes. UPPER ABDOMEN: Unremarkable OSSEOUS STRUCTURES: Appropriate for age with no acute process identified. Procedure Note Rah Mayberry MD - 11/09/2024 CT CHEST WO CONTRAST DIAGNOSTIC Date of Exam: 11/08/2024 5:51 PM EDT Indication: Possible left lower lobe infiltrate. Comparison: None available. Technique: Axial CT images were obtained of the chest without contrastadministration. Reconstructed coronal and sagittal images were alsoobtained. Automated exposure control and iterative construction methodswere used. Findings: MEDIASTINUM: Mitral annular calcification. Aortic and heart size arenormal. No mass nor pericardial effusion. CORONARY ARTERIES: There is calcified atherosclerotic disease. LUNGS: Bilateral lower lung airspace disease suggestive of multifocalpneumonia. PLEURAL SPACE: Trace bilateral pleural effusions. LYMPH NODES: There are no pathologically enlarged lymph nodes. UPPER ABDOMEN: Unremarkable OSSEOUS STRUCTURES: Appropriate for age with no acute processidentified. IMPRESSION: Impression: 1.Bilateral lower lung airspace disease suggestive of multifocalpneumonia. 2.Trace bilateral pleural effusions. Electronically Signed: Rah Mayberry MD 11/09/2024 8:16 AM EDT Workstation ID: [id number] us Israel Jimenez MD IMG CT ORDERABLES Final Resu lt * NM Lung Ventilation Perfusion (11/08/2024 5:42 PM EDT) Anatomical Region Laterality Modality Chest N/A Nuclear Medicine 11/08/2024 11:5 5 PM EDT Impressions 11/09/2024 12:02 AM EDT Low probability for pulmonary embolism Electronically Signed: Acosta Maxwell MD 11/09/2024 12:02 AM EDT Workstation ID: [id number] Narrative 11/09/2024 12:02 AM EDT DATE OF EXAM: 11/08/2024 5:39 PM EDT PROCEDURE: NM LUNG VENTILATION PERFUSION INDICATIONS: evaluate likelihood of PE. COMPARISON: No comparisons available. TECHNIQUE: The patient was ventilated with 31.5 mCi of Tc 99m-DTPA and ventilation images were acquired in multiple obliquities. The patient then received 5.0 mCi of technetium 99m MAA intravenously and perfusion images were acquired in multiple obliquities. FINDINGS: There are focal areas of central clumping of radiotracer suggestive of turbulent airflow, a nonspecific finding. There is no convincing mismatched or large perfusion defect. There are areas of matched defect involving the left apex and the medial posterior right lower lobe. Findings are consistent with low probability for pulmonary embolism based on modified PIOPED criteria. Procedure Note Acosta Maxwell MD - 11/09/2024 DATE OF EXAM: 11/08/2024 5:39 PM EDT PROCEDURE: NM LUNG VENTILATION PERFUSION INDICATIONS: evaluate likelihood of PE. COMPARISON: No comparisons available. TECHNIQUE: The patient was ventilated with 31.5 mCi of Tc 99m-DTPA andventilation images were acquired in multiple obliquities. The patient thenreceived 5.0 mCi of technetium 99m MAA intravenously and perfusion imageswere acquired in multiple obliquities. FINDINGS: There are focal areas of central clumping of radiotracer suggestive ofturbulent airflow, a nonspecific finding. There is no convincingmismatched or large perfusion defect. There are areas of matched defectinvolving the left apex and the medial posterior right lower lobe. Findings are consistent with low probabilityfor pulmonary embolism based on modified PIOPED criteria. IMPRESSION: Low probability for pulmonary embolism Electronically Signed: Acosta Maxwell MD 11/09/2024 12:02 AM EDT Workstation ID: [id number] us Israel Jimenez MD IMG NM ORDERABLES Final Resu lt * Duplex Venous Lower Extremity - Bilateral CAR (11/08/2024 4:39 PM EDT) Right Common Femoral Spont Y Right Common Femoral Phasic Y Right Common Femoral Compress C Right Common Femoral Augment Y Right Saphenofemoral Junction Spont Y Right Saphenofemoral Junction Phasic Y Right Saphenofemoral Junction Compress C Right Saphenofemoral Junction Augment Y Right Profunda Femoral Spont Y Right Profunda Femoral Phasic Y Right Proximal Femoral Spont Y Right Proximal Femoral Phasic Y Right Proximal Femoral Compress C Right Proximal Femoral Augment Y Right Mid Femoral Spont Y Right Mid Femoral Phasic Y Right Mid Femoral Compress C Right Mid Femoral Augment Y Right Distal Femoral Spont Y Right Distal Femoral Phasic Y Right Distal Femoral Compress C Right Distal Femoral Augment Y Right Popliteal Spont Y Right Popliteal Phasic Y Right Popliteal Compress C Right Popliteal Augment Y Right Posterior Tibial Compress C Right Peroneal Compress C Right Gastronemius Compress C Right Greater Saph AK Compress C Right Greater Saph BK Compress C Right Lesser Saph Compress C Left Common Femoral Spont Y Left Common Femoral Phasic Y Left Common Femoral Compress C Left Common Femoral Augment Y Left Saphenofemoral Junction Spont Y Left Saphenofemoral Junction Phasic Y Left Saphenofemoral Junction Compress C Left Saphenofemoral Junction Augment Y Left Profunda Femoral Spont Y Left Profunda Femoral Phasic Y Left Proximal Femoral Spont Y Left Proximal Femoral Phasic Y Left Proximal Femoral Compress C Left Proximal Femoral Augment Y Left Mid Femoral Spont Y Left Mid Femoral Phasic Y Left Mid Femoral Compress C Left Mid Femoral Augment Y Left Distal Femoral Spont Y Left Distal Femoral Phasic Y Left Distal Femoral Compress C Left Distal Femoral Augment Y Left Popliteal Spont Y Left Popliteal Phasic Y Left Popliteal Compress C Left Popliteal Augment Y Left Posterior Tibial Compress C Left Peroneal Compress C Left Gastronemius Compress C Left Greater Saph AK Compress C Left Greater Saph BK Compress C Left Lesser Saph Compress C Anatomical Region Laterality Modality Ultrasound Narrative 11/08/2024 4:46 PM EDT Normal bilateral lower extremity venous duplex scan. Study Impression Right Common Femoral: No deep vein thrombosis noted. Right Saphenofemoral Junction: No superficial thrombophlebitis noted. Right Proximal Femoral: No deep vein thrombosis noted. Right Mid Femoral: No deep vein thrombosis noted. Right Distal Femoral: No deep vein thrombosis noted. Right Popliteal: No deep vein thrombosis noted. Right Posterior Tibial: No deep vein thrombosis noted. Right Peroneal: No deep vein thrombosis noted. Right Gastrocnemius: No deep vein thrombosis noted. Right Great Saphenous Above Knee: No superficial thrombophlebitis noted. Right Great Saphenous Below Knee: No superficial thrombophlebitis noted. Left Common Femoral: No deep vein thrombosis noted. Left Saphenofemoral Junction: No superficial thrombophlebitis noted. Left Proximal Femoral: No deep vein thrombosis noted. Left Mid Femoral: No deep vein thrombosis noted. Left Distal Femoral: No deep vein thrombosis noted. Left Popliteal: No deep vein thrombosis noted. Left Posterior Tibial: No deep vein thrombosis noted. Left Peroneal: No deep vein thrombosis noted. Left Gastrocnemius: No deep vein thrombosis noted. Left Great Saphenous Above Knee: No superficial thrombophlebitis noted. Left Great Saphenous Below Knee: No superficial thrombophlebitis noted. Study Findings - Right Right sided additional findings: All RLE deep and superficial veins appear compressible and patent at time of exam. No sonographic evidence of thrombus noted. No prior duplex for comparison. Study Findings - Left Left sided additional findings: All LLE deep and superficial veins appear compressible and patent at time of exam. No sonographic evidence of thrombus noted. No prior duplex for comparison. Additional Study Details Study performed at bedside. The study is technically good for diagnosis. No relevant cardiovascular history. Israel Jimenez MD CV VASCULAR ORDERABLES Final Result * (ABNORMAL) Basic Metabolic Panel (11/08/2024 4:21 PM EDT) Glucose 201(H) 65 - 99 mg/dL 11/08/2024 4:56 PM EDT [facility] BUN 30.5(H) 6.0 - 20.0 mg/dL 11/08/2024 4:56 PM EDT [facility] Creatinine 2.36(H) 0.76 - 1.27 mg/dL 11/08/2024 4:56 PM EDT [facility] Sodium 135(L) 136 - 145 mmol/L 11/08/2024 4:56 PM EDT [facility] Potassium 4.7 3.5 - 5.2 mmol/L 11/08/2024 4:56 PM T [facility] Comment:Specimen hemolyzed. Result may be falsely elevated. Chloride 99 98 - 107 mmol/L 11/08/2024 4:56 PM EDT [facility] CO2 24.4 22.0 - 29.0 mmol/L 11/08/2024 4:56 PM EDT [facility] Calcium 9.2 8.6 - 10.5 mg/dL 11/08/2024 4:56 PM T [facility] BUN/Creatinine Ratio 12.9 7.0 - 25.0 11/08/2024 4:56 PM T [facility] Anion Gap 11.6 5.0 - 15.0 mmol/L 11/08/2024 4:56 PM [facility] eGFR 31.3(L) >60.0 mL/min/1.7 3 11/08/2024 4:56 PM T [facility] Blood Venipuncture / Unknown 11/08/2024 4:21 PM EDT 11/08/2024 4:28 PM EDT [facility] - 11/08/2024 4:56 PM EDT GFR Categories in Chronic Kidney Disease (CKD) GFR Category GFR (mL/min/1.73) Interpretation G1 90 or greater Normal or high (1) G2 60-89 Mild decrease (1) G3a 45-59 Mild to moderate decrease G3b 30-44 Moderate to severe decrease G4 15-29 Severe decrease G5 14 or less Kidney failure (1)In the absence of evidence of kidney disease, neither GFR category G1 or G2 fulfill the criteria for CKD. eGFR calculation 2020 CKD-EPI creatinine equation, which does not include race as a factor Israel Jimenez MD LAB BLOOD ORDERABLES Final R esult [facility]
[address] [place] [address], * Telemetry Scan (11/08/2024 2:29 PM EDT) [facility] Onbase ECG ORDERABLES Final Result * (ABNORMAL) POC Glucose Once (11/08/2024 11:52 AM EDT) Glucose 167(H) 70 - 130 mg/dL 11/08/2024 12:11 PM EDT [facility] Comment:Serial Number: [id number] Blood 11/08/2024 11:5 2 AM EDT 11/08/2024 12:11 PM EDT Israel Jimenez MD POINT OF CARE TEST ORDERABLE S Final Result Performing Organization Address City/[facility]/ZIP Co de Phone Number [facility]
[address] [place] [address], * XR Chest 1 View (11/08/2024 9:34 AM EDT) Anatomical Region Laterality Modality Body N/A Radiographic Apurva ging 11/08/2024 9:42 AM EDT Impressions 11/08/2024 9:45 AM EDT Impression: New patchy airspace opacity in the left base may be due to atelectasis or infiltrate. Correlate clinically for pneumonia. Electronically Signed: Acosta Grider MD 11/08/2024 9:45 AM EDT Workstation ID: [id number] Narrative 11/08/2024 9:45 AM EDT XR CHEST 1 VW Date of Exam: 11/08/2024 9:22 AM EDT Indication: dyspnea. Comparison: 11/07/2024 Findings: Cervical fixation hardware is partially included. There is new patchy airspace opacity in the left base which may be due to atelectasis or infiltrate. Right lung is clear. No pneumothorax identified. No large effusion. Pulmonary vascularity appears within normal limits. Heart size appears mildly prominent. Aortic vascular calcification is noted. Procedure Note Acosta Grider MD - 11/08/2024 XR CHEST 1 VW Date of Exam: 11/08/2024 9:22 AM EDT Indication: dyspnea. Comparison: 11/07/2024 Findings: Cervical fixation hardware is partially included. There is new patchyairspace opacity in the left base which may be due to atelectasis orinfiltrate. Right lung is clear. No pneumothorax identified. No largeeffusion. Pulmonary vascularity appears within normal limits. Heart size appears mildly prominent. Aortic vascularcalcification is noted. IMPRESSION: Impression: New patchy airspace opacity in the left base may be due to atelectasis orinfiltrate. Correlate clinically for pneumonia. Electronically Signed: Acosta Grider MD 11/08/2024 9:45 AM EDT Workstation ID: [id number] us Israel Jimenez MD IM DIAGNOSTIC IMAGING ORDER NAYE Final Result * (ABNORMAL) POC Glucose 4x Daily Before Meals & at Bedtime (11/08/2024 7:18 AM EDT) Glucose 232(H) 70 - 130 mg/dL 11/08/2024 7:21 AM EDT [facility] Comment:Serial Number: [id number]: [id number] Novchristina Comment 1 Notified Patients RN 11/08/2024 7:21 AM EDT [facility] Blood 11/08/2024 7:18 AM EDT 11/08/2024 7:21 AM EDT us Israel Jimenez MD POINT OF CARE TEST ORDERABLE S Final Result Performing Organization Address [facility] de Phone Number [facility]
[address] [place] [address], * Phosphorus (11/08/2024 3:10 AM EDT) Phosphorus 4.1 2.5 - 4.5 mg/dL 11/08/2024 3:57 AM EDT [facility] Blood Venipuncture / Unknown 11/08/2024 3:10 AM EDT 11/08/2024 3:32 AM EDT Dina Sanchez APRN LAB BLOOD ORDERABLES Final Result Performing Organization Address [facility] de Phone Number [facility]
[address] [place] [address], * Magnesium (11/08/2024 3:10 AM EDT) Magnesium 2.0 1.6 - 2.6 mg/dL 11/08/2024 3:57 AM EDT [facility] Blood Venipuncture / Unknown 11/08/2024 3:10 AM EDT 11/08/2024 3:32 AM EDT Dina Sanchez APRN LAB BLOOD ORDERABLES Final Result Performing Organization Address [facility] de Phone Number [facility]
[address] [place] [address], * (ABNORMAL) Comprehensive Metabolic Panel (11/08/2024 3:10 AM EDT) Glucose 137(H) 65 - 99 mg/dL 11/08/2024 3:57 AM EDT [facility] BUN 36.0(H) 6.0 - 20.0 mg/dL 11/08/2024 3:57 AM [facility] Creatinine 3.55(H) 0.76 - 1.27 mg/dL 11/08/2024 3:57 AM [facility] Sodium 134(L) 136 - 145 mmol/L 11/08/2024 3:57 AM [facility] Potassium 5.3(H) 3.5 - 5.2 mmol/L 11/08/2024 3:57 AM [facility] Chloride 97(L) 98 - 107 mmol/L 11/08/2024 3:57 AM [facility] CO2 24.4 22.0 - 29.0 mmol/L 11/08/2024 3:57 AM [facility] Calcium 9.0 8.6 - 10.5 mg/dL 11/08/2024 3:57 AM [facility] Total Protein 7.0 6.0 - 8.5 g/dL 11/08/2024 3:57 AM [facility] Albumin 4.0 3.5 - 5.2 g/dL 11/08/2024 3:57 AM [facility] ALT (SGPT) 22 1 - 41 U/L 11/08/2024 3:57 AM [facility] AST (SGOT) 20 1 - 40 U/L 11/08/2024 3:57 AM [facility] Alkaline Phosphatase 48 39 - 117 U/L 11/08/2024 3:57 AM [facility] Total Bilirubin 0.3 0.0 - 1.2 mg/dL 11/08/2024 3:57 AM [facility] Globulin 3.0 gm/dL 11/08/2024 3:57 AM [facility] Comment:Calculated Result A/G Ratio 1.3 g/dL 11/08/2024 3:57 AM [facility] BUN/Creatinine Ratio 10.1 7.0 - 25.0 11/08/2024 3:57 AM [facility] Anion Gap 12.6 5.0 - 15.0 mmol/L 11/08/2024 3:57 AM EDT [facility] eGFR 19.2(L) >60.0 mL/min/1.7 3 11/08/2024 3:57 AM EDT [facility] Blood Venipuncture / Unknown 11/08/2024 3:10 AM EDT 11/08/2024 3:32 AM EDT [facility] - 11/08/2024 3:57 AM EDT GFR Categories in Chronic Kidney Disease (CKD) GFR Category GFR (mL/min/1.73) Interpretation G1 90 or greater Normal or high (1) G2 60-89 Mild decrease (1) G3a 45-59 Mild to moderate decrease G3b 30-44 Moderate to severe decrease G4 15-29 Severe decrease G5 14 or less Kidney failure (1)In the absence of evidence of kidney disease, neither GFR category G1 or G2 fulfill the criteria for CKD. eGFR calculation 2020 CKD-EPI creatinine equation, which does not include race as a factor Dina Sanchez ARTS MANAGER LAB BLOOD ORDERABLES Final Result [facility]
[address] [place] [address], * (ABNORMAL) CBC Auto Differential (11/08/2024 3:10 AM EDT) WBC 15.14(H) 3.40 - 10.80 10*3/mm3 11/08/2024 3:39 AM EDT [facility] RBC 5.17 4.14 - 5.80 10*6/mm3 11/08/2024 3:39 AM EDT [facility] Hemoglobin 14.7 13.0 - 17.7 g/dL 11/08/2024 3:39 AM EDT [facility] Hematocrit 45.7 37.5 - 51.0 % 11/08/2024 3:39 AM EDT [facility] MCV 88.4 79.0 - 97.0 fL 11/08/2024 3:[facility] MCH 28.4 26.6 - 33.0 pg 11/08/2024 3:39 AM [facility] MCHC 32.2 31.5 - 35.7 g/dL 11/08/2024 3:39 AM [facility] RDW 15.1 12.3 - 15.4 % 11/08/2024 3:39 AM [facility] RDW-SD 49.2 37.0 - 54.0 fl 11/08/2024 3:39 AM [facility] MPV 11.4 6.0 - 12.0 fL 11/08/2024 3:39 AM [facility] Platelets 154 140 - 450 10*3/mm3 11/08/2024 3:39 AM [facility] Neutrophil % 87.0(H) 42.7 - 76.0 % 11/08/2024 3:39 AM [facility] Lymphocyte % 7.9(L) 19.6 - 45.3 % 11/08/2024 3:39 AM [facility] Monocyte % 4.3(L) 5.0 - 12.0 % 11/08/2024 3:39 AM [facility] Eosinophil % 0.1(L) 0.3 - 6.2 % 11/08/2024 3:39 AM [facility] Basophil % 0.1 0.0 - 1.5 % 11/08/2024 3:39 AM [facility] Immature Grans % 0.6(H) 0.0 - 0.5 % 11/08/2024 3:39 AM [facility] Neutrophils, Absolute 13.18(H) 1.70 - 7.00 10*3/mm3 11/08/2024 3:39 AM [facility] Lymphocytes, Absolute 1.20 0.70 - 3.10 10*3/mm3 11/08/2024 3:39 AM [facility] Monocytes, Absolute 0.65 0.10 - 0.90 10*3/mm3 11/08/2024 3:39 AM EDT [facility] Eosinophils, Absolute 0.01 0.00 - 0.40 10*3/mm3 11/08/2024 3:39 AM EDT [facility] Basophils, Absolute 0.01 0.00 - 0.20 10*3/mm3 11/08/2024 3:39 AM EDT [facility] Immature Grans, Absolute 0.09(H) 0.00 - 0.05 10*3/mm3 11/08/2024 3:39 AM EDT [facility] nRBC 0.0 0.0 - 0.2 /100 WBC 11/08/2024 3:39 AM EDT [facility] Blood Venipuncture / Unknown 11/08/2024 3:10 AM EDT 11/08/2024 3:35 AM EDT Dina Sanchez APRN LAB BLOOD ORDERABLES Final Result Performing Organization Address [facility]/ZIP Co de Phone Number [facility]
[address] [place] [address], [place] [phone] * (ABNORMAL) STAT Lactic Acid, Reflex (11/08/2024 12:04 AM EDT) [facility] Signature Lactate 2.6(HH) 0.5 - 2.0 mmol/L 11/08/2024 1:29 AM EDT [facility] Comment:Falsely depressed re sults may occur on samples drawn from patients receiving N-Acetylcysteine (NAC) or Metamizole. Blood Venipuncture / Unknown 11/08/2024 12:04 AM EDT 11/08/2024 1:01 AM EDT Dina Sanchez APRN LAB BLOOD ORDERABLES Final Result Performing Organization Address [facility]/ZIP Co de Phone Number [facility]
[address] [place] [address], [place] [phone] * (ABNORMAL) STAT Lactic Acid, Reflex (11/07/2024 8:52 PM EDT) Lactate 2.1(HH) 0.5 - 2.0 mmol/L 11/07/2024 9:51 PM EDT [facility] Comment:Falsely depressed re sults may occur on samples drawn from patients receiving N-Acetylcysteine (NAC) or Metamizole. Blood Venipuncture / Unknown 11/07/2024 8:52 PM EDT 11/07/2024 9:29 PM EDT Dina Sanchez APRN LAB BLOOD ORDERABLES Final Result Performing Organization Address [facility] Co de Phone Number [facility]
[address] [place] [address], * (ABNORMAL) POC Glucose Finger Q1H (11/07/2024 8:02 PM EDT) Glucose 175(H) 70 - 130 mg/dL 11/07/2024 8:07 PM EDT [facility] Comment:Serial Number: [id number] Blood Finger structure / Unknown 11/07/2024 8:02 PM EDT 11/07/2024 8:07 PM EDT Dina Sanchez APRN POINT OF CARE TEST ORDERABL ES Final Result Performing Organization Address [facility]/ZIP Co de Phone Number [facility]
[address] [place] [address], [place] [phone] * (ABNORMAL) POC Glucose Finger Q1H (11/07/2024 7:09 PM EDT) Glucose 191(H) 70 - 130 mg/dL 11/07/2024 7:12 PM EDT [facility] Comment:Serial Number: [id number] Blood Finger structure / Unknown 11/07/2024 7:09 PM EDT 11/07/2024 7:12 PM EDT Dina Sanchez APRN POINT OF CARE TEST ORDERABL ES Final Result Performing Organization Address City/[facility]/ZIP Co de Phone Number [facility]
[address] [place] [address], [place] [phone] * Urea Nitrogen, Urine - Urine, Clean Catch (11/07/2024 6:12 PM EDT) Urea Nitrogen, Urine 119 mg/dL 11/08/2024 12:25 PM EDT [facility] Urine Urine specimen obtained by clean catch procedure / Unknown Collection / Unknown 11/07/2024 6:12 PM EDT 11/08/2024 7:51 AM EDT [facility] - 11/08/2024 12:25 PM EDT Reference intervals for random urine have not been established. Clinical usage is dependent upon physician's interpretation in combination with other laboratory tests. us Israel Jimenez MD URINE ORDERABLES Final Resul t Performing Organization Address City/[facility]/ZIP Co de Phone Number [facility]
[address] [place] [address], * Creatinine Urine Random (kidney function) GFR component - Urine, Clean Catch (11/07/2024 6:12 PM EDT) Creatinine, Urine 94.0 mg/dL 11/08/2024 12:25 PM EDT [facility] Urine Urine specimen obtained by clean catch procedure / Unknown Collection / Unknown 11/07/2024 6:12 PM EDT 11/08/2024 7:51 AM EDT [facility] - 11/08/2024 12:25 PM EDT Reference intervals for random urine have not been established. Clinical usage is dependent upon physician's interpretation in combination with other laboratory tests. us Israel Jimenez MD URINE ORDERABLES Final Resul t Performing Organization Address City/[facility]/ZIP Co de Phone Number [facility]
[address] [place] [address], [place] [phone] * Sodium, Urine, Random - Urine, Clean Catch (11/07/2024 6:12 PM EDT) Sodium, Urine 55 mmol/L 11/08/2024 8:11 AM EDT [facility] Urine Urine specimen obtained by clean catch procedure / Unknown Collection / Unknown 11/07/2024 6:12 PM EDT 11/08/2024 7:51 AM EDT [facility] - 11/08/2024 8:11 AM EDT Reference intervals for random urine have not been established. Clinical usage is dependent upon physician's interpretation in combination with other laboratory tests. Israel Jimenez MD URINE ORDERABLES Final Resul t Performing Organization Address [facility]/ZIP Co de Phone Number [facility]
[address] [place] [address], [place] [phone] * Urinalysis, Microscopic Only - Urine, Clean Catch (11/07/2024 6:12 PM EDT) Pathologist [facility] RBC, UA 0-2 None Seen, 0-2 /HPF 11/07/2024 6:43 PM EDT [facility] WBC, UA 0-2 None Seen, 0-2 /HPF 11/07/2024 6:43 PM EDT [facility] Comment:Urine culture not in dicated. Bacteria, UA None Seen None Seen /HPF 11/07/2024 6:43 PM EDT [facility] Squamous Epithelial Cells, UA 0-2 None Seen, 0-2 /HPF 11/07/2024 6:43 PM EDT [facility] Hyaline Casts, UA 13-20 None Seen /LPF 11/07/2024 6:43 PM EDT [facility] Methodology Automated Microscopy 11/07/2024 6:43 PM EDT [facility] Urine Urine specimen obtained by clean catch procedure / Unknown Collection / Unknown 11/07/2024 6:12 PM EDT 11/07/2024 6:33 PM EDT Dina Joseph Daniel ARTS MANAGER URINE ORDERABLES Final Resu lt Performing Organization Address [facility] Co de Phone Number [facility]
[address] [place] [address], * Fentanyl, Urine - Urine, Clean Catch (11/07/2024 6:12 PM EDT) Fentanyl, Urine Negative Negative 11/07/2024 7:00 PM EDT [facility] Urine Urine specimen obtained by clean catch procedure / Unknown Collection / Unknown 11/07/2024 6:12 PM EDT 11/07/2024 6:34 PM EDT Narrative [facility] - 11/07/2024 7:00 PM EDT Negative Threshold: Fentanyl 5 ng/mL The normal value for the drug tested is negative. This report includes final unconfirmed screening results to be used for medical treatment purposes only. Unconfirmed results must not be used for non-medical purposes such as employment or legal testing. Clinical consideration should be applied to any drug of abuse test, particularly when unconfirmed results are used. us Dina Sanchez APRN URINE ORDERABLES Final Resu lt Performing Organization Address [facility] Co de Phone Number [facility]
[address] [place] [address], [place] [phone] * (ABNORMAL) Urinalysis With Culture If Indicated - Urine, Clean Catch (11/07/2024 6:12 PM EDT) Color, UA Yellow Yellow, Straw 11/07/2024 6:43 PM EDT [facility] Appearance, UA Clear Clear 11/07/2024 6:43 PM EDT [facility] pH, UA <=5.0 5.0 - 8.0 11/07/2024 6:43 PM EDT [facility] Specific Lynn, UA 1.013 1.005 - 1.030 11/07/2024 6:43 PM EDT [facility] Glucose, UA Negative Negative 11/07/2024 6:43 PM EDT [facility] Ketones, UA Negative Negative 11/07/2024 6:43 PM EDT [facility] Bilirubin, UA Negative Negative 11/07/2024 6:43 PM EDT [facility] Blood, UA Negative Negative 11/07/2024 6:43 PM EDT [facility] Protein, UA Trace(A) Negative 11/07/2024 6:43 PM EDT [facility] Leuk Esterase, UA Trace(A) Negative 11/07/2024 6:43 PM EDT [facility] Nitrite, UA Negative Negative 11/07/2024 6:43 PM EDT [facility] Urobilinogen, UA 0.2 E.U./dL 0.2 - 1.0 E.U./dL 11/07/2024 6:43 PM EDT [facility] Urine Urine specimen obtained by clean catch procedure / Unknown Collection / Unknown 11/07/2024 6:12 PM EDT 11/07/2024 6:33 PM EDT [facility] - 11/07/2024 6:43 PM EDT In absence of clinical symptoms, the presence of pyuria, bacteria, and/or nitrites on the urinalysis result does not correlate with infection. us Dina Sanchez ARTS MANAGER URINE ORDERABLES Final Resu lt [facility]
[address] [place] [address], * (ABNORMAL) Metanephrines, Pheochromocytoma Evaluation - Urine, Clean Catch (11/07/2024 6:12 PM EDT) Creatinine, Urine 95.1 Not Estab. mg/dL 11/16/2024 9:10 AM EDT [facility] Normetanephrin e, Urine 823 Undefined ug/L 11/16/2024 9:10 AM EDT [facility] Metanephrines, Urine 174 Undefined ug/L 11/16/2024 9:10 AM EDT [facility] Metanephrine/C reatinine Ratio 1.1(H) 0.0 - 1.0 ug/mg Creat 11/16/2024 9:10 AM EDT [facility] Urine Urine specimen obtained by clean catch procedure / Unknown Collection / Unknown 11/07/2024 6:12 PM EDT 11/07/2024 6:19 PM EDT Narrative [facility] - 11/16/2024 9:10 AM EDT Test(s) 548929-Mecstsqazbhrqem, Ur; [id number]-Jgduhkxubogm, Ur was developed and its performance characteristics determined by [facility]. It has not been cleared or approved by the Food and Drug Administration. Performed at: 01 - [address] [id number] Air Quality Chemist: Fay Conway MD, Phone: [phone] Dina Sanchez ARTS MANAGER URINE ORDERABLES Final Resu lt Performing Organization Address [facility]/State/[facility] Co de Phone Number [facility] [address] [place] [address], * (ABNORMAL) Urine Drug Screen - Urine, Clean Catch (11/07/2024 6:12 PM EDT) THC, Screen, Urine Negative Negative 2024 6:47 PM EDT [facility] Phencyclidine (PCP), Urine Negative Negative 11/07/2024 6:47 PM EDT [facility] Cocaine Screen, Urine Negative Negative 11/07/2024 6:47 PM EDT [facility] Methamphetamine, Ur Negative Negative 11/07/2024 6:47 PM EDT [facility] Opiate Screen Negative Negative 11/07/2024 6:47 PM EDT [facility] Amphetamine Screen, Urine Negative Negative 11/07/2024 6:47 PM EDT [facility] Benzodiazepine Screen, Urine Positive(A) Negative 11/07/2024 6:47 PM EDT [facility] Tricyclic Antidepressants Screen Positive(A) Negative 11/07/2024 6:47 PM EDT [facility] Methadone Screen, Urine Negative Negative 11/07/2024 6:47 PM EDT [facility] Barbiturates Screen, Urine Negative Negative 11/07/2024 6:47 PM EDT [facility] Oxycodone Screen, Urine Negative Negative 11/07/2024 6:47 PM EDT [facility] Buprenorphine, Screen, Urine Negative Negative 11/07/2024 6:47 PM EDT [facility] Urine Urine specimen obtained by clean catch procedure / Unknown Collection / Unknown 11/07/2024 6:12 PM EDT 11/07/2024 6:34 PM EDT Narrative [facility] - 11/07/2024 6:47 PM EDT Cutoff For Drugs Screened: Amphetamines 500 ng/ml Barbiturates 200 ng/ml Benzodiazepines 150 ng/ml Cocaine 150 ng/ml Methadone 200 ng/ml Opiates 100 ng/ml Phencyclidine 25 ng/ml THC 50 ng/ml Methamphetamine 500 ng/ml Tricyclic Antidepressants 300 ng/ml Oxycodone 100 ng/ml Buprenorphine 10 ng/ml The normal value for all drugs tested is negative. This report includes unconfirmed screening results, with the cutoff values listed, to be used for medical treatment purposes only. Unconfirmed results must not be used for non-medical purposes such as employment or legal testing. Clinical consideration should be applied to any drug of abuse test, particularly when unconfirmed results are used. us Dina Sanchez ARTS MANAGER URINE ORDERABLES Final Resu lt [facility]
[address] [place] [address], * (ABNORMAL) POC Glucose Finger Q1H (11/07/2024 6:07 PM EDT) Glucose 154(H) 70 - 130 mg/dL 11/07/2024 6:10 PM EDT [facility] Comment:Serial Number: [id number]: [id number] Blood Finger structure / Unknown 11/07/2024 6:07 PM EDT 11/07/2024 6:10 PM EDT Dina Sanchez ARTS MANAGER POINT OF CARE TEST ORDERABL ES Final Result Performing Organization Address [facility] Co de Phone Number [facility]
[address] [place] [address], * (ABNORMAL) POC Glucose Finger Q1H (11/07/2024 5:37 PM EDT) Glucose 143(H) 70 - 130 mg/dL 11/07/2024 5:40 PM EDT [facility] Comment:Serial Number: [id number]: [id number] Blood Finger structure / Unknown 11/07/2024 5:37 PM EDT 11/07/2024 5:40 PM EDT Dina Sanchez APRN POINT OF CARE TEST ORDERABL ES Final Result Performing Organization Address [facility] Co de Phone Number [facility]
[address] [place] [address], [place] [phone] * Respiratory Culture - Sputum, Cough (11/07/2024 5:31 PM EDT) Respiratory Culture Scant growth (1+) Normal respiratory candace. No S. aureus or Pseudomonas aeruginosa detected. Final report. TRINI 11/09/2024 12:30 PM EDT [facility] Gram Stain Moderate (3+) WBCs per low power field 11/09/2024 12:30 PM EDT [facility] Gram Stain Rare (1+) Epithelial cells per low power field 11/09/2024 12:30 PM EDT [facility] Gram Stain No organisms seen 11/09/2024 12:30 PM EDT [facility] Sputum Coughed sputum specimen / Unknown Collection / Unknown 11/07/2024 5:31 PM EDT 11/07/2024 5:42 PM EDT Dina Sanchez APRN MICROBIOLOGY - GENERAL ORDE RABLES Final Result [facility]
[address] [place] [address], [place] [phone] [facility]
[address] [place] [address], [place] [phone] * (ABNORMAL) STAT Lactic Acid, Reflex (11/07/2024 5:30 PM EDT) Lactate 2.3(HH) 0.5 - 2.0 mmol/L 11/07/2024 6:25 PM EDT [facility] Comment:Falsely depressed re sults may occur on samples drawn from patients receiving N-Acetylcysteine (NAC) or Metamizole. Blood Venipuncture / Unknown 11/07/2024 5:30 PM EDT 11/07/2024 5:53 PM EDT Dina Sanchez APRN LAB BLOOD ORDERABLES Final Result [facility]
[address] [place] [address], [place] [phone] * Blood Culture - Blood, Hand, Left (11/07/2024 5:29 PM EDT) Blood Culture No growth at 5 days 11/12/2024 6:01 PM EDT [facility] Blood Structure of left hand / Unknown Venipuncture / Unknown 11/07/2024 5:29 PM EDT 11/07/2024 6:00 PM EDT Dina Sanchez APRN MICROBIOLOGY - GENERAL ORDE TOBY Final Result [facility]
[address] [place] [address], * Blood Culture - Blood, Arm, Left (11/07/2024 5:29 PM EDT) Pathologist [facility] Blood Culture No growth at 5 days 11/12/2024 6:01 PM EDT [facility] Blood Structure of left upper limb / Unknown Venipuncture / Unknown 11/07/2024 5:29 PM EDT 11/07/2024 5:59 PM EDT Dina Sanchez APRN MICROBIOLOGY - GENERAL ORDE TOBY Final Result Performing Organization Address City/[facility]/ZIP Co de Phone Number [facility]
[address] [place] [address], * (ABNORMAL) High Sensitivity Troponin T 1Hr (11/07/2024 5:29 PM EDT) [facility] HS Troponin T 22(H) <22 ng/L 11/07/2024 6:17 PM EDT [facility] Troponin T Numeric Delta 0 ng/L 11/07/2024 6:17 PM EDT [facility] Troponin T % Delta 0 Abnormal if >/= 20% 11/07/2024 6:17 PM EDT [facility] Blood Venipuncture / Unknown 11/07/2024 5:29 PM EDT 11/07/2024 5:52 PM EDT Narrative [facility] - 11/07/2024 6:17 PM EDT High Sensitive Troponin T Reference Range: <14.0 ng/L- Negative Female for AMI <22.0 ng/L- Negative Male for AMI >=14 - Abnormal Female indicating possible myocardial injury. >=22 - Abnormal Male indicating possible myocardial injury. Clinicians would have to utilize clinical acumen, EKG, Troponin, and serial changes to determine if it is an Acute Myocardial Infarction or myocardial injury due to an underlying chronic condition. Dina Sanchez APRN LAB BLOOD ORDERABLES Final Result [facility]
[address] [place] [address], * Aldosterone (11/07/2024 5:29 PM EDT) Aldosterone 5.0 0.0 - 30.0 ng/dL 11/13/2024 11:11 AM EDT [facility] Blood Venipuncture / Unknown 11/07/2024 5:29 PM EDT 11/07/2024 5:53 PM EDT [facility]ative [facility] - 11/13/2024 11:11 AM EDT Test(s) [id number]-Chikdysdmqy was developed and its performance characteristics determined by [facility]. It has not been cleared or approved by the Food and Drug Administration. Performed at: 01 - [address] [id number] Air Quality Chemist: Fay Conway MD, Phone: [phone] Dina Sanchez APRN LAB BLOOD ORDERABLES Final Result Performing Organization Address City/[facility]/ZIP Co de Phone Number [facility] [address] [place] [address], [place] [phone] * (ABNORMAL) Renin Direct Assay (11/07/2024 5:29 PM EDT) Renin Activity 10.521(H) 0.167 - 5.380 ng/mL/hr 11/18/2024 12:07 AM EDT [facility] Blood Venipuncture / Unknown 11/07/2024 5:29 PM EDT 11/07/2024 5:53 PM EDT Narrative [facility] - 11/18/2024 12:07 AM EDT Test(s) [id number]-Rwfyw Activity, Plasma was developed and its performance characteristics determined by [facility]. It has not been cleared or approved by the Food and Drug Administration. Performed at: - [address] [id number] Air Quality Chemist: Fay Conway MD, Phone: [phone] Dina Sanchez APRN LAB BLOOD ORDERABLES Final Result Performing Organization Address [facility] Co de Phone Number [facility] [address] [place] [address], [place] [phone] * Metanephrines, Frac. Free, Plasma (11/07/2024 5:29 PM EDT) Pathologist [facility] Normetanephrine 186.7 0.0 - 244.0 pg/mL 11/11/2024 9:08 PM EDT [facility] Metanephrine 34.1 0.0 - 88.0 pg/mL 11/11/2024 9:08 PM EDT [facility] Blood Venipuncture / Unknown 11/07/2024 5:29 PM EDT 11/07/2024 5:55 PM EDT Narrative [facility] - 11/11/2024 9:08 PM EDT Test(s) [id number]-Difuqojrkgckbjv, Pl; [id number]-Vhnymzodmoiz, Pl was developed and its performance characteristics determined by [facility]. It has not been cleared or approved by the Food and Drug Administration. Performed at: - [address] [id number] Air Quality Chemist: Fay Conway MD, Phone: [phone] Dina Sanchez APRN LAB BLOOD ORDERABLES Final Result Performing Organization Address [facility] de Phone Number [facility] [address] [place] [address], [place] [phone] * MRSA Screen, PCR (Inpatient) - Swab, Nares (11/07/2024 5:19 PM EDT) [facility] MRSA PCR Negative Negative CEPHEID GENEXPERT 11/07/2024 6:38 PM EDT [facility] Swab Structure of anterior naris / Unknown Collection / Unknown 11/07/2024 5:19 PM EDT 11/07/2024 5:26 PM EDT Narrative [facility] - 11/07/2024 6:38 PM EDT The negative predictive value of this diagnostic test is high and should only be used to consider de-escalating anti-MRSA therapy. A positive result may indicate colonization with MRSA and must be correlated clinically. MRSA Negative Dina Sanchez ARTS MANAGER MICROBIOLOGY - GENERAL ORDE RABLES Final Result Performing Organization Address City/[facility]/ZIP Co de Phone Number [facility]
[address] [place] [address], * (ABNORMAL) POC Glucose Once (11/07/2024 4:55 PM EDT) Pathologist [facility] Glucose 56(L) 70 - 130 mg/dL 11/07/2024 5:00 PM EDT [facility] Comment:Serial Number: [id number] Blood 11/07/2024 4:55 PM EDT 11/07/2024 5:00 PM EDT Alexsander Branch MD POINT OF CARE TEST ORDERAB LES Final Result Performing Organization Address City/[facility]/ZIP Co de Phone Number [facility]
[address] [place] [address], * ECHO COMPLETE W/ DOPPLER AND COLOR FLOW (11/07/2024 3:51 PM EDT) Pathologist [facility] EF(MOD-bp) 54.9 % LVIDd 4.7 cm LVIDs 3.6 cm IVSd 1.40 cm LVPWd 1.50 cm FS 23.4 % IVS/LVPW 0.93 cm ESV(cubed) 46.7 ml LV Sys Vol (BSA corrected) 39.9 cm2 EDV(cubed) 103.8 ml LV [place] Vol (BSA corrected) 83.2 cm2 LV mass(C)d 279.4 grams LVOT area 3.8 cm2 LVOT diam 2.20 cm EDV(MOD-sp2) 145.0 ml EDV(MOD-sp4) 191.0 ml ESV(MOD-sp2) 63.2 ml ESV(MOD-sp4) 91.6 ml SV(MOD-sp2) 81.8 ml SV(MOD-sp4) 99.4 ml SVi(MOD-SP2) 35.6 ml/m2 SVi(MOD-SP4) 43.3 ml/m2 SVi (LVOT) 25.3 ml/m2 EF(MOD-sp2) 56.4 % EF(MOD-sp4) 52.0 % MV E max jan 66.0 cm/sec MV A max jan 101.0 cm/sec MV E/A 0.65 IVRT 113.0 ms LA ESV Index (BP) 29.3 ml/m2 Med Peak E' Jan 6.1 cm/sec Lat Peak E' Jan 8.2 cm/sec Avg E/e' ratio 9.23 SV(LVOT) 58.2 ml RV Base 3.5 cm RV Mid 2.6 cm RV Length 5.7 cm TAPSE (>1.6) 1.71 cm RV S' 9.1 cm/sec LA dimension (2D) 4.4 cm LV V1 max 83.8 cm/sec LV V1 max PG 2.8 mmHg LV V1 mean PG 1.00 mmHg LV V1 VTI 15.3 cm Ao pk jan 128.0 cm/sec Ao max PG 6.6 mmHg Ao mean PG 3.0 mmHg Ao V2 VTI 23.1 cm BALWINDER(I,D) 2.5 cm2 Dimensionless Index 0.66 (DI) MV max PG 6.2 mmHg MV mean PG 2.00 mmHg MV V2 VTI 24.6 cm MV P1/2t 48.7 msec MVA(P1/2t) 4.5 cm2 MVA(VTI) 2.36 cm2 MV dec slope 607.0 cm/sec2 PA acc time 0.11 sec Ao root diam 3.6 cm Anatomical Region Laterality Modality Ultrasound Narrative 11/07/2024 5:04 PM EDT Left ventricular systolic function is normal. Calculated left ventricular EF = 54.9% Left ventricular ejection fraction appears to be 51 - 55%. Left ventricular wall thickness is consistent with mild concentric hypertrophy. Left ventricular diastolic function is consistent with (grade I) impaired relaxation. The left atrial cavity is mildly dilated. No significant structural or functional valvular disease. Left Ventricle Left ventricular systolic function is normal. Calculated left ventricular EF = 54.9% Left ventricular ejection fraction appears to be 51 - 55%. Normal left ventricular cavity size noted. Left ventricular wall thickness is consistent with mild concentric hypertrophy. All left ventricular wall segments contract normally. Left ventricular diastolic function is consistent with (grade I) impaired relaxation. Right Ventricle Normal right ventricular cavity size, wall thickness, systolic function and septal motion noted. Left Atrium The left atrial cavity is mildly dilated. Right Atrium Normal right atrial cavity size noted. Mitral Valve The mitral valve is structurally normal with no regurgitation or significant stenosis present. Tricuspid Valve The tricuspid valve is structurally normal with no significant regurgitation or significant stenosis present. Aortic Valve The aortic valve is structurally normal with no regurgitation or stenosis present. Pulmonic Valve The pulmonic valve is structurally normal with no regurgitation or significant stenosis present. Pericardium The pericardium is normal. There is no evidence of pericardial effusion. . Greater Vessels No dilation of the aortic root is present. us Dina Sanchez APRN CV ECHO ORDERABLES Final Re sult * ECG 12 Lead Dyspnea (11/07/2024 3:43 PM EDT) QT Interval 418 ms ECG QTC Interval 502 ms ECG 11/07/2024 3:43 PM EDT 11/11/2024 5:17 PM EDT Narrative ECG - 11/11/2024 5:17 PM EDT Test Reason : Dyspnea Blood Pressure : */* mmHG Vent. Rate : 87 BPM Atrial Rate : 87 BPM P-R Int : 172 ms QRS Dur : 120 ms QT Int : 418 ms P-R-T Axes : 32 -1 48 degrees QTcB Int : 502 ms Normal sinus rhythm Nonspecific intraventricular conduction delay Borderline ECG No previous ECGs available Confirmed by Mei Mccurdy ([id number]) on 11/11/2024 5:17:11 PM Referred By: Confirmed By: Mei Mccurdy Procedure Note Mei Mccurdy MD - 11/11/2024 Test Reason : Dyspnea Blood Pressure : */* mmHG Vent. Rate : 87 BPM Atrial Rate : 87 BPM P-R Int : 172 ms QRS Dur : 120 ms QT Int : 418 ms P-R-T Axes : 32 -1 48 degrees QTcB Int : 502 ms Normal sinus rhythm Nonspecific intraventricular conduction delay Borderline ECG No previous ECGs available Confirmed by Mei Mccurdy ([id number]) on 11/11/2024 5:17:11 PM Referred By: Confirmed By: Mei Mccurdy Dina Sanchez APRN ECG ORDERABLES Final Resul t ECG * POC Glucose Once (11/07/2024 3:38 PM EDT) Glucose 73 70 - 130 mg/dL 11/12/2024 7:52 AM EDT [facility] Comment:Serial Number: [id number] Blood 11/07/2024 3:38 PM EDT 11/12/2024 7:51 AM EDT Yonatan Lebron MD POINT OF CARE TEST ORDERABLES Final Result [facility]
[address] [place] [address], * (ABNORMAL) POC Glucose Once (11/07/2024 3:10 PM EDT) Glucose 51(L) 70 - 130 mg/dL 11/07/2024 3:11 PM EDT [facility] Comment:Serial Number: [id number] Blood 11/07/2024 3:10 PM EDT 11/07/2024 3:11 PM EDT us Alexsander Branch MD POINT OF CARE TEST ORDERAB LES Final Result [facility]
[address] [place] [address], * Cortisol (11/07/2024 3:08 PM EDT) Cortisol 7.95 mcg/dL 11/07/2024 4:30 PM EDT [facility] Blood Line / Unknown 11/07/2024 3: 08 PM EDT 11/07/2024 3:15 PM EDT [facility] - 11/07/2024 4:30 PM EDT Cortisol Reference Ranges: Cortisol 6AM - 10AM Range: 6.02-18.40 mcg/dl Cortisol 4PM - 8PM Range: 2.68-10.50 mcg/dl Results may be falsely increased if patient taking Biotin. Dina Sanchez ARTS MANAGER LAB BLOOD ORDERABLES Final Result Performing Organization Address City/[facility]/ZIP Co de Phone Number [facility]
[address] [place] [address], * (ABNORMAL) High Sensitivity Troponin T (11/07/2024 3:08 PM EDT) HS Troponin T 22(H) <22 ng/L 11/07/2024 4:30 PM EDT [facility] Blood Line / Unknown 11/07/2024 3: 08 PM EDT 11/07/2024 3:15 PM EDT [facility] - 11/07/2024 4:30 PM EDT High Sensitive Troponin T Reference Range: <14.0 ng/L- Negative Female for AMI <22.0 ng/L- Negative Male for AMI >=14 - Abnormal Female indicating possible myocardial injury. >=22 - Abnormal Male indicating possible myocardial injury. Clinicians would have to utilize clinical acumen, EKG, Troponin, and serial changes to determine if it is an Acute Myocardial Infarction or myocardial injury due to an underlying chronic condition. Dina Sanchez APRN LAB BLOOD ORDERABLES Final Result Performing Organization Address City/[facility]/ZIP Co de Phone Number [facility]
[address] [place] [address], * Protime-INR (11/07/2024 3:08 PM EDT) Protime 14.5 12.2 - 15.3 Seconds 11/07/2024 4:07 PM EDT [facility] INR 1.07 0.89 - 1.12 11/07/2024 4:07 PM EDT [facility] Blood Line / Unknown 11/07/2024 3: 08 PM EDT 11/07/2024 3:15 PM EDT Dina E Daniel MALDONADO LAB BLOOD ORDERABLES Final Result Performing Organization Address [facility] Co de Phone Number [facility]
[address] [place] [address], * (ABNORMAL) Procalcitonin (11/07/2024 3:08 PM EDT) Procalcitonin 0.38(H) 0.00 - 0.25 ng/mL 11/07/2024 4:24 PM EDT [facility] Blood Line / Unknown 11/07/2024 3: 08 PM EDT 11/07/2024 3:15 PM EDT Narrative [facility] - 11/07/2024 4:24 PM EDT As a Marker for Sepsis (Non-Neonates): 1. <0.5 ng/mL represents a low risk of severe sepsis and/or septic shock. 2. >2 ng/mL represents a high risk of severe sepsis and/or septic shock. As a Marker for Lower Respiratory Tract Infections that require antibiotic therapy: PCT on Admission Antibiotic Therapy 6-12 Hrs later >0.5 Strongly Recommended >0.25 - <0.5 Recommended 0.1 - 0.25 Discouraged Remeasure/reassess PCT <0.1 Strongly Discouraged Remeasure/reassess PCT As 28 day mortality risk marker: Change in Procalcitonin Result (>80% or <=80%) if Day 0 (or Day 1) and Day 4 values are available. Refer to http://www.lqiwon-jan-nhcsgrtyuf.com Change in PCT <=80% A decrease of PCT levels below or equal to 80% defines a positive change in PCT test result representing a higher risk for 28-day all-cause mortality of patients diagnosed with severe sepsis for septic shock. Change in PCT >80% A decrease of PCT levels of more than 80% defines a negative change in PCT result representing a lower risk for 28-day all-cause mortality of patients diagnosed with severe sepsis or septic shock. Dina Sanchez APRN LAB BLOOD ORDERABLES Final Result Performing Organization Address City/[facility]/ZIP Co de Phone Number [facility]
[address] [place] [address], * (ABNORMAL) Phosphorus (11/07/2024 3:08 PM EDT) Phosphorus 5.4(H) 2.5 - 4.5 mg/dL 11/07/2024 4:30 PM EDT [facility] Blood Line / Unknown 11/07/2024 3: 08 PM EDT 11/07/2024 3:15 PM EDT Dina Sanchez APRN LAB BLOOD ORDERABLES Final Result Performing Organization Address City/[facility]/ZIP Co de Phone Number [facility]
[address] [place] [address], * Magnesium (11/07/2024 3:08 PM EDT) Magnesium 1.9 1.6 - 2.6 mg/dL 11/07/2024 4:36 PM EDT [facility] Blood Line / Unknown 11/07/2024 3: 08 PM EDT 11/07/2024 3:15 PM EDT Dina Sanchez APRN LAB BLOOD ORDERABLES Final Result Performing Organization Address [facility] Co de Phone Number [facility]
[address] [place] [address], * (ABNORMAL) Lactic Acid, Plasma (11/07/2024 3:08 PM EDT) Lactate 2.6(HH) 0.5 - 2.0 mmol/L 11/07/2024 4:11 PM EDT [facility] Comment:Falsely depressed re sults may occur on samples drawn from patients receiving N-Acetylcysteine (NAC) or Metamizole. Blood Line / Unknown 11/07/2024 3: 08 PM EDT 11/07/2024 3:15 PM EDT Dina Sanchez ARTS MANAGER LAB BLOOD ORDERABLES Final Result Performing Organization Address [facility] de Phone Number [facility]
[address] [place] [address], * (ABNORMAL) Comprehensive Metabolic Panel (11/07/2024 3:08 PM EDT) Glucose 48(LL) 65 - 99 mg/dL 11/07/2024 4:36 PM EDT [facility] BUN 33.3(H) 6.0 - 20.0 mg/dL 11/07/2024 4:36 PM EDT [facility] Creatinine 3.72(H) 0.76 - 1.27 mg/dL 11/07/2024 4:36 PM EDT [facility] Sodium 136 136 - 145 mmol/L 11/07/2024 4:36 PM EDT [facility] Potassium 5.1 3.5 - 5.2 mmol/L 11/07/2024 4:36 PM EDT [facility] Chloride 96(L) 98 - 107 mmol/L 11/07/2024 4:36 PM EDT [facility] CO2 28.0 22.0 - 29.0 mmol/L 11/07/2024 4:36 PM EDT [facility] Calcium 9.0 8.6 - 10.5 mg/dL 11/07/2024 4:36 PM EDT [facility] Total Protein 6.6 6.0 - 8.5 g/dL 11/07/2024 4:36 PM EDT [facility] Albumin 3.8 3.5 - 5.2 g/dL 11/07/2024 4:36 PM EDT [facility] ALT (SGPT) 20 1 - 41 U/L 11/07/2024 4:36 PM EDT [facility] AST (SGOT) 18 1 - 40 U/L 11/07/2024 4:36 PM EDT [facility] Alkaline Phosphatase 50 39 - 117 U/L 11/07/2024 4:36 PM EDT [facility] Total Bilirubin 0.4 0.0 - 1.2 mg/dL 11/07/2024 4:36 PM EDT [facility] Globulin 2.8 gm/dL 11/07/2024 4:36 PM EDT [facility] Comment:Calculated Result A/G Ratio 1.4 g/dL 11/07/2024 4:36 PM EDT [facility] BUN/Creatinine Ratio 9.0 7.0 - 25.0 11/07/2024 4:36 PM T [facility] Anion Gap 12.0 5.0 - 15.0 mmol/L 11/07/2024 4:36 PM EDT [facility] eGFR 18.1(L) >60.0 mL/min/1.7 3 11/07/2024 4:36 PM T [facility] Blood Line / Unknown 11/07/2024 3: 08 PM EDT 11/07/2024 3:15 PM EDT [facility] - 11/07/2024 4:36 PM EDT GFR Categories in Chronic Kidney Disease (CKD) GFR Category GFR (mL/min/1.73) Interpretation G1 90 or greater Normal or high (1) G2 60-89 Mild decrease (1) G3a 45-59 Mild to moderate decrease G3b 30-44 Moderate to severe decrease G4 15-29 Severe decrease G5 14 or less Kidney failure (1)In the absence of evidence of kidney disease, neither GFR category G1 or G2 fulfill the criteria for CKD. eGFR calculation 2020 CKD-EPI creatinine equation, which does not include race as a factor us Dina Sanchez ARTS MANAGER LAB BLOOD ORDERABLES Final Result [facility]
[address] [place] [address], * (ABNORMAL) CBC Auto Differential (11/07/2024 3:08 PM EDT) WBC 12.28(H) 3.40 - 10.80 10*3/mm3 11/07/2024 3:27 PM EDT [facility] RBC 5.00 4.14 - 5.80 10*6/mm3 11/07/2024 3:27 PM EDT [facility] Hemoglobin 14.4 13.0 - 17.7 g/dL 11/07/2024 3:27 PM EDT [facility] Hematocrit 44.3 37.5 - 51.0 % 11/07/2024 3:27 PM EDT [facility] MCV 88.6 79.0 - 97.0 fL 11/07/2024 3:27 PM EDT [facility] MCH 28.8 26.6 - 33.0 pg 11/07/2024 3:27 PM EDT [facility] MCHC 32.5 31.5 - 35.7 g/dL 11/07/2024 3:27 PM EDT [facility] RDW 15.4 12.3 - 15.4 % 11/07/2024 3:27 PM [facility] RDW-SD 50.0 37.0 - 54.0 fl 11/07/2024 3:27 PM [facility] MPV 11.4 6.0 - 12.0 fL 11/07[facility]24 [facility] Platelets 145 140 - 450 10*3/mm3 11/07[facility]2024 3:[facility] Neutrophil % 75.6 42.7 - 76.0 % 11/07/2024 3:27 PM [facility] Lymphocyte % 18.0(L) 19.6 - 45.3 % 11/07/2024 3:27 PM [facility] Monocyte % 5.5 5.0 - 12.0 % 11/07/2024 3:27 PM [facility] Eosinophil % 0.3 0.3 - 6.2 % 11/07/2024 3:27 PM [facility] Basophil % 0.2 0.0 - 1.5 % 11/07/2024 3:27 PM [facility] Immature Grans % 0.4 0.0 - 0.5 % 11/07/2024 3:27 PM [facility] Neutrophils, Absolute 9.28(H) 1.70 - 7.00 10*3/mm3 11/07/2024 3:27 PM [facility] Lymphocytes, Absolute 2.21 0.70 - 3.10 10*3/mm3 11/07/2024 3:27 PM [facility] Monocytes, Absolute 0.67 0.10 - 0.90 10*3/mm3 11/07/2024 3:27 PM [facility] Eosinophils, Absolute 0.04 0.00 - 0.40 10*3/mm3 11/07/2024 3:27 PM [facility] Basophils, Absolute 0.03 0.00 - 0.20 10*3/mm3 11/07/2024 3:27 PM [facility] Immature Grans, Absolute 0.05 0.00 - 0.05 10*3/mm3 11/07/2024 3:27 PM EDT [facility] nRBC 0.0 0.0 - 0.2 /100 WBC 11/07/2024 3:27 PM EDT [facility] Blood Line / Unknown 11/07/2024 3: 08 PM EDT 11/07/2024 3:15 PM EDT Dina Sanchez ARTS MANAGER LAB BLOOD ORDERABLES Final Result Performing Organization Address City/[facility]/ZIP Co de Phone Number [facility]
[address] [place] [address], [place] [phone] * BNP (11/07/2024 3:08 PM EDT) [facility] proBNP 74.0 0.0 - 900.0 pg/mL 11/07/2024 4:30 PM EDT [facility] Blood Line / Unknown 11/07/2024 3: 08 PM EDT 11/07/2024 3:15 PM EDT Narrative [facility] - 11/07/2024 4:30 PM EDT This assay is used as an aid in the diagnosis of individuals suspected of having heart failure. It can be used as an aid in the diagnosis of acute decompensated heart failure (ADHF) in patients presenting with signs and symptoms of ADHF to the emergency department (ED). In addition, NT-proBNP of <300 pg/mL indicates ADHF is not likely. Age Range Result Interpretation NT-proBNP Concentration (pg/mL: <50 Positive >450 Cai 300-450 Negative <300 50-75 Positive >900 Cai 300-900 Negative <300 >75 Positive >1800 Cai 300-1800 Negative <300 Dina Sanchez APRN LAB BLOOD ORDERABLES Final Result Performing Organization Address City/[facility]/ZIP Co de Phone Number [facility]
[address] [place] [address], [place] [phone] * XR Chest 1 View (11/07/2024 3:02 PM EDT) Anatomical Region Laterality Modality Body N/A Radiographic Apurva ging 11/07/2024 3:12 PM EDT Impressions 11/07/2024 3:13 PM EDT Impression: No radiographic evidence of acute cardiopulmonary abnormality. Electronically Signed: Florian Luo MD 11/07/2024 3:13 PM EDT Workstation ID: [id number] Narrative 11/07/2024 3:13 PM EDT XR CHEST 1 VW Date of Exam: 11/07/2024 2:46 PM EDT Indication: Productive cough. Comparison: Chest radiograph 11/07/2024 Findings: Mediastinum: Cardiac silhouette appears unchanged and mildly enlarged Lungs: The lungs appear clear without focal consolidation appreciated. Pleura: No pleural effusion or pneumothorax. Bones and soft tissues: No acute, displaced fracture seen. ACDF hardware Procedure Note Florian Luo MD - 11/07/2024 XR CHEST 1 VW Date of Exam: 11/07/2024 2:46 PM EDT Indication: Productive cough. Comparison: Chest radiograph 11/07/2024 Findings: Mediastinum: Cardiac silhouette appears unchanged and mildly enlarged Lungs: The lungs appear clear without focal consolidation appreciated. Pleura: No pleural effusion or pneumothorax. Bones and soft tissues: No acute, displaced fracture seen. ACDF hardware IMPRESSION: Impression: No radiographic evidence of acute cardiopulmonary abnormality. Electronically Signed: Florian Luo MD 11/07/2024 3:13 PM EDT Workstation ID: [id number] Dina Sanchez ARTS MANAGER IMG DIAGNOSTIC IMAGING ORDE RABGLENNA Final Result * (ABNORMAL) Hemoglobin A1c (11/07/2024 3:00 PM EDT) Hemoglobin A1C 5.89(H) 4.80 - 5.60 % 11/07/2024 5:36 PM EDT [facility] Blood Line / Unknown 11/07/2024 3: 00 PM EDT 11/07/2024 3:04 PM EDT Narrative [facility] - 11/07/2024 5:36 PM EDT Hemoglobin A1C Ranges: Increased Risk for Diabetes 5.7% to 6.4% Diabetes >= 6.5% Diabetic Goal < 7.0% us Dina Sanchez ARTS MANAGER LAB BLOOD ORDERABLES Final Result [facility]
[address] [place] [address], * CT Outside Head (11/07/2024 2:56 PM EDT) Narrative SYSTEMGENERATED, DOCUMENTATION - 11/07/2024 2:56 PM EDT This procedure was auto-finalized with no dictation required. us [employer] Outside Films IMG CT ORDERABLES Final Re sult * CT Outside Neck (11/07/2024 2:56 PM EDT) Narrative SYSTEMGENERATED, DOCUMENTATION - 11/07/2024 2:56 PM EDT This procedure was auto-finalized with no dictation required. us [employer] Outside Films IMG CT ORDERABLES Final Re sult * XR Outside Chest (11/07/2024 2:55 PM EDT) Narrative SYSTEMGENERATED, DOCUMENTATION - 11/07/2024 2:55 PM EDT This procedure was auto-finalized with no dictation required. us [employer]iant Outside Films IMG DIAGNOSTIC IMAGING ORD ERABLES Final Result * (ABNORMAL) POC Glucose Once (11/07/2024 2:38 PM EDT) [facility] Signature Glucose 50(L) 70 - 130 mg/dL 11/07/2024 2:40 PM EDT [facility] Comment:Serial Number: [id number]: [id number] Blood 11/07/2024 2:38 PM EDT 11/07/2024 2:40 PM EDT us Alexsander Branch MD POINT OF CARE TEST ORDERAB LES Final Result [facility]
[address] [place] [address], documented in this encounter Visit Diagnoses Diagnosis Syncope- Primary Syncope and collapse Syncope and collapse Type 2 diabetes mellitus Tobacco use CAD Coronary atherosclerosis of unspecified type of vessel, [place] or graft GERD Esophageal reflux Bipolar disorder Bipolar disorder, unspecified CKD Chronic kidney disease, unspecified COPD Chronic airway obstruction, not elsewhere classified documented in this encounter Admitting Diagnoses Diagnosis Syncope Syncope and collapse documented in this encounter Administered Medications Inactive Administered Medications - up to 3 most recent administrations Medication Order MAR Action Action Date Dose Rate Site acetaminophen (TYLENOL) suppository 650 mg 650 mg, Rectal, Every 4 Hours PRN, Mild Pain, Fever, temperature greater than 100.4 F, Starting on Kelsey 11/07/24 at 1443, If given for fever, use fever parameter: fever greater than 100.4 F Based on patient request - if ordered for moderate or severe pain, provider allows for administration of a medication prescribed for a lower pain scale. Do not exceed 4 grams of acetaminophen in a 24 hr period. Max dose of 2gm for AST/ALT greater than 120 units/L. If given for pain, use the following pain scale: Mild Pain = Pain Score of 1-3, CPOT 1-2 Moderate Pain = Pain Score of 4-6, CPOT 3-4 Severe Pain = Pain Score of 7-10, CPOT 5-8 acetaminophen (TYLENOL) tablet 650 mg 650 mg, Oral, Every 4 Hours PRN, Fever, fever greater than 100.4 F or headache, Starting on Kelsey 11/07/24 at 1443, If given for fever, use fever parameter: fever greater than 100.4 F Based on patient request - if ordered for moderate or severe pain, provider allows for administration of a medication prescribed for a lower pain scale. Do not exceed 4 grams of acetaminophen in a 24 hr period. Max dose of 2gm for AST/ALT greater than 120 units/L. If given for pain, use the following pain scale: Mild Pain = Pain Score of 1-3, CPOT 1-2 Moderate Pain = Pain Score of 4-6, CPOT 3-4 Severe Pain = Pain Score of 7-10, CPOT 5-8 Given 11/09/2024 7:45 AM EDT 650 mg arformoterol (BROVANA) nebulizer solution 15 mcg 15 mcg, Nebulization, 2 Times Daily - RT, First dose on Mon11/07/24 at 1815, Include Respiratory Treatment Education Keep refrigerated. Given 11/11/2024 7:38 AM EDT 15 mcg Given 11/10/2024 8:10 PM EDT 15 mcg Given 11/10/2024 9:22 AM EDT 15 mcg aspirin chewable tablet 81 mg 81 mg, Oral, Daily, First dose on Mon11/08/24 at 0900, Herbal/drug interaction: Avoid use with ginkgo biloba. Based on patient request - if ordered for moderate or severe pain, provider allows for administration of a medication prescribed for a lower pain scale. Do not exceed 4 grams of aspirin in a 24 hr period. If given for pain, use the following pain scale: Mild Pain = Pain Score of 1-3, CPOT 1-2 Moderate Pain = Pain Score of 4-6, CPOT 3-4 Severe Pain = Pain Score of 7-10, CPOT 5-8 Given 11/11/2024 8:41 AM EDT 81 mg Given 11/10/2024 8:03 AM EDT 81 mg Given 11/09/2024 8:18 AM EDT 81 mg bisacodyl (DULCOLAX) EC tablet 5 mg 5 mg, Oral, Daily PRN, Constipation, Use if polyethylene glycol is ineffective, Starting on Mon11/07/24 at 1444, Use if no bowel movement after 12 hours. Swallow whole. Do not crush, split, or chew tablet. bisacodyl (DULCOLAX) suppository 10 mg 10 mg, Rectal, Daily PRN, Constipation, Use if bisacodyl oral is ineffective, Starting on Mon11/07/24 at 1444, Use if no bowel movement after 12 hours. Hold for diarrhea budesonide (PULMICORT) nebulizer solution 0.5 mg 0.5 mg, Nebulization, 2 Times Daily - RT, First dose on Mon11/08/24 at 0030, Include Respiratory Treatment Education Do not shake. Protect from light. Given 11/11/2024 7:39 AM EDT 0.5 mg Given 11/10/2024 8:20 PM EDT 0.5 mg Given 11/10/2024 9:15 AM EDT 0.5 mg calcium gluconate 2000-675 MG/100ML NACL IVPB 2,000 mg, Intravenous, Once, On Mon11/08/24 at 0530, For 1 dose New Bag 11/08/2024 5:18 AM EDT 2,000 mg dextrose (D50W) (25 g/50 mL) IV injection 25 g 25 g, Intravenous, Every 15 Minutes PRN, Low Blood Sugar, Blood Sugar Less Than 70, Starting on Kelsey 11/07/24 at 1536, Blood sugar less than 70; patient has IV access - Unresponsive, NPO or Unable To Safely Swallow Given 11/07/2024 5:03 PM EDT 25 g dextrose (GLUTOSE) oral gel 15 g 15 g, Oral, Every 15 Minutes PRN, Low Blood Sugar, Blood sugar less than 70, Starting on Kelsey 11/07/24 at 1536, BS<70, Patient Alert, Is not NPO, Can safely swallow. gabapentin (NEURONTIN) capsule 400 mg 400 mg, Oral, Every 8 Hours Scheduled, First dose on 11/09/24 at 1400, (BRINDA) Given 11/11/2024 6:05 AM EDT 400 mg Given 11/10/2024 9:48 PM EDT 400 mg Given 11/10/2024 3:10 PM EDT 400 mg glucagon (GLUCAGEN) injection 1 mg 1 mg, Intramuscular, Every 15 Minutes PRN, Low Blood Sugar, Blood Glucose Less Than 70, Starting on Kelsey 11/07/24 at 1536, Blood Glucose Less Than 70 - Patient Without IV Access - Unresponsive, NPO or Unable To Safely Swallow Reconstitute powder for injection by adding 1 mL of molding associate-supplied sterile diluent or sterile water for injection to a vial containing 1 mg of the drug, to provide solutions containing 1 mg/mL. Shake vial gently to dissolve. heparin (porcine) 5000 UNIT/ML injection 5,000 Units 5,000 Units, Subcutaneous, Every 8 Hours Scheduled, First dose on Kelsey 11/07/24 at 2230, Indications: VTE ProphylaxisIndications:VTE Prophylaxis Given 11/11/2024 6:05 AM EDT 5,000 Units Right Lower Abdomen Given 11/10/2024 9:48 PM EDT 5,000 Units R ight Lower Abdomen Given 11/10/2024 3:10 PM EDT 5,000 Units R ight Lower Abdomen Hydrocortisone Sod Suc (PF) (Solu-CORTEF) injection 100 mg 100 mg, Intravenous, Once, On Kelsey 11/07/24 at 1745, For 1 dose, Caution: Look alike/sound alike drug alert Given 11/07/2024 5:04 PM EDT 100 mg Hydrocortisone Sod Suc (PF) (Solu-CORTEF) injection 50 mg 50 mg, Intravenous, Every 6 Hours, First dose on Mon11/08/24 at 0000, For 3 days, Caution: Look alike/sound alike drug alert Given 11/09/2024 11:52 AM EDT 50 mg Given 11/09/2024 5:56 AM EDT 50 mg Given 11/08/2024 11:57 PM EDT 50 mg Hydrocortisone Sod Suc (PF) (Solu-CORTEF) injection 50 mg 50 mg, Intravenous, Every 12 Hours, First dose (after last modification) on 11/09/24 at 1530, For 3 doses, Caution: Look alike/sound alike drug alert Given 11/10/2024 3:10 PM EDT 50 mg Given 11/10/2024 2:45 AM EDT 50 mg Given 11/09/2024 4:03 PM EDT 50 mg insulin glargine (LANTUS, SEMGLEE) injection 10 Units 10 Units, Subcutaneous, Daily, First dose on Mon11/08/24 at 0915, Do not hold basal insulin without an order. Consider requesting a dose edit, if needed. (BKC) Given 11/11/2024 8:42 AM EDT 10 Units Right Lower Abdomen Given 11/10/2024 8:03 AM EDT 10 Units Ri ght Lower Abdomen Given 11/09/2024 8:17 AM EDT 10 Units Ri ght Arm Insulin Lispro (humaLOG) injection 2-9 Units 2-9 Units, Subcutaneous, 4 Times Daily Before Meals & Nightly, First dose on Kelsey 11/07/24 at 1845, Correction Insulin - Moderate Dose (Total Insulin Dose 40-60 units/day, Average Weight Patient, Patient Taking Oral Hypoglycemic) Blood Glucose 150-199 mg/dL - 2 units Blood Glucose 200-249 mg/dL - 4 units Blood Glucose 250-299 mg/dL - 6 units Blood Glucose 300-349 mg/dL - 7 units Blood Glucose 350-400 mg/dL - 8 units Blood Glucose greater than 400 mg/dL - 9 units & Call Provider ([facility]) Caution: Look alike/sound alike drug alert([facility]) Given 11/10/2024 9:47 PM EDT 2 Units Right Lower Abdomen Given 11/10/2024 5:37 PM EDT 4 Units Ri ght Lower Abdomen Given 11/10/2024 12:34 PM EDT 2 Units R ight Lower Abdomen ipratropium (ATROVENT) nebulizer solution 0.5 mg 0.5 mg, Nebulization, 4 Times Daily - RT, First dose on Mon11/07/24 at 1815, Include Respiratory Treatment Education (SP) Given 11/10/2024 8:10 PM EDT 0.5 mg Given 11/10/2024 9:15 AM EDT 0.5 mg Given 11/09/2024 7:54 PM EDT 0.5 mg ipratropium-albuterol (DUO-NEB) nebulizer solution 3 mL 3 mL, Nebulization, Every 4 Hours PRN, Shortness of Air, Starting on Mon11/07/24 at 1716, Include Respiratory Treatment Education Given 11/07/2024 9:47 PM EDT 3 mL lamoTRIgine (LaMICtal) tablet 100 mg 100 mg, Oral, 2 Times Daily, First dose on Mon11/08/24 at 0030, Caution: Look alike/sound alike drug alert Given 11/11/2024 8:42 AM EDT 100 mg Given 11/10/2024 9:47 PM EDT 100 mg Given 11/10/2024 8:03 AM EDT 100 mg mupirocin (BACTROBAN) 2 % nasal ointment 1 Application 1 Application, Each Nare, 2 Times Daily, First dose on Mon11/07/24 at 1530, For 5 days, Begin on day 1 of ICU admission and continue for 5 days, even if patient transferred out of critical care. MUPIROCIN APPLICATION: 1. Place patient's bed at 30 degrees, if tolerated. 2. Wash your hands with warm soapy water or use hand hand packer/packager. 3. Open the tube of mupirocin 2%. 4. Squeeze about 0.5 g (blueberry-size) of mupirocin from the tube onto a sterile applicator or a cotton swab. 5. Apply the swab directly into nostril. Ensure coating of the sides of the nostril. 6. Repeat with second sterile applicator for other nostril. 7. Gently press the sides of the nostrils together and massage gently for 60 seconds. (BKC) Given 11/10/2024 9:48 PM EDT 1 Ap plication Given 11/09/2024 8:28 PM EDT 1 Application Given 11/09/2024 8:18 AM EDT 1 Application nicotine (NICODERM CQ) 21 MG/24HR patch 1 patch 1 patch, Transdermal, Administer over 24 Hours, Every 24 Hours Scheduled, First dose on Mon11/08/24 at 0900, Apply to clean, dry, nonhairy area of skin (typically upper arm or shoulder) Dispose of nicotine replacement therapies and their wrappers in non-hazardous pharmaceutical waste or in regular trash. Medication Applied 11/10/2024 8:10 AM EDT 1 patch Right Arm Medication Applied 11/09/2024 8:18 AM EDT 1 patch Left Arm Medication Applied 11/08/2024 8:33 AM EDT 1 patch Right Arm norepinephrine (LEVOPHED) 8 mg in 250 mL NS infusion (premix) 0.02-0.3 mcg/kg/min 115 kg (4.3125-64.6875 mL/hr, rounded to 4.31-64.69 mL/hr), Intravenous, Titrated, Starting on Kelsey 11/07/24 at 1415, Initiate infusion at 0.02 mcg/kg/min & titrate up or down by 0.02 - 0.06 mcg/kg/min every 5 - 10 minutes to use the lowest dose possible to maintain a MAP greater than or equal To 65 mm Hg. Contact provider if unable to maintain MAP target at the maximum dose or if MAP is greater than 95 mm Hg. Once MAP target achieved, obtain vitals a minimum of every 30 minutes. Must contact provider and obtain new order to exceed dose of 0.3 mcg/kg/min. Concentration 8 mg/250 mL Central line preferred, if unavailable use large bore IV access with frequent nurse monitoring of IV site. Rate/Dose Change 11/07/2024 3:00 PM EDT 0.01 mcg/kg/min 2.16 mL/hr Norepinephrine-Sodium Chloride (LEVOPHED) 8-0.9 MG/250ML-% infusion solution - ADS Override Pull Starting on Kelsey 11/07/24 at 1413, For 1 dose, Created by cabinet override Concentration 8 mg/250 mL Central line preferred, if unavailable use large bore IV access with frequent nurse monitoring of IV site. Given 11/07/2024 2:32 PM EDT 0.02 mcg/kg/min pantoprazole (PROTONIX) EC tablet 40 mg 40 mg, Oral, Every Morning Before Breakfast, First dose on 11/09/24 at 0730, Do not crush or chew the capsules or tablets. The drug may not work as designed if the capsule or tablet is crushed or chewed. Swallow whole. Swallow whole; do not crush, split, or chew. Given 11/11/2024 8:41 AM EDT 40 mg Given 11/10/2024 8:03 AM EDT 40 mg Given 11/09/2024 8:18 AM EDT 40 mg pantoprazole (PROTONIX) injection 40 mg 40 mg, Intravenous, Every Glost Tile Shader, First dose on Mon11/08/24 at 0600, Dilute with 10 mL of 0.9% NaCl and give IV push over 2 minutes., Indications: Stress Ulcer ProphylaxisIndications:Stress Ulcer Prophylaxis Given 11/08/2024 5:17 AM EDT 40 mg piperacillin-tazobactam (ZOSYN) 3.375 g IVPB in 100 mL NS MBP (CD) 3.375 g, Intravenous, Administer over 30 Minutes, Once, On Kelsey 11/07/24 at 1745, For 1 dose New Bag 11/07/2024 5:31 PM EDT 3.375 g piperacillin-tazobactam (ZOSYN) 3.375 g IVPB in 100 mL NS MBP (CD) 3.375 g, Intravenous, Administer over 4 Hours, Every 8 Hours, First dose on Mon11/08/24 at 0200, For 5 days, Indications: EmpiricIndications:Empiric New Bag 11/08/2024 2:09 AM EDT 3.375 g piperacillin-tazobactam (ZOSYN) 4.5 g IVPB in 100 mL NS MBP (CD) 4.5 g, Intravenous, Administer over 4 Hours, Every 8 Hours, First dose (after last modification) on Mon11/08/24 at 1000, For 14 doses, Indications: EmpiricIndications:Empiric New Bag 11/11/2024 2:05 AM EDT 4.5 g New Bag 11/10/2024 6:11 PM EDT 4.5 g New Bag 11/10/2024 11:00 AM EDT 4.5 g polyethylene glycol (MIRALAX) packet 17 g 17 g, Oral, Daily PRN, Constipation, Use if senna-docusate is ineffective, Starting on Kelsey 11/07/24 at 1444, Use if no bowel movement after 12 hours. Mix in 6-8 ounces of water. Use 4-8 ounces of water, tea, or juice for each 17 gram dose. prasugrel (EFFIENT) tablet 10 mg 10 mg, Oral, Daily, First dose on Mon11/08/24 at 0900, May crush tablet and mix in water and administer immediately via a gastric tube. DO NOT ADMINISTER if patient has a history of stroke or TIA - contact prescriber. Given 11/11/2024 8:41 AM EDT 10 mg Given 11/10/2024 8:03 AM EDT 10 mg Given 11/09/2024 8:18 AM EDT 10 mg QUEtiapine (SEROquel) tablet 50 mg 50 mg, Oral, Nightly, First dose on Mon11/08/24 at 0030, Caution: Look alike/sound alike drug alert Given 11/10/2024 9:48 PM EDT 50 mg Given 11/09/2024 8:28 PM EDT 50 mg Given 11/08/2024 8:27 PM EDT 50 mg revefenacin (YUPELRI) nebulizer solution 175 mcg 175 mcg, Nebulization, Daily - RT, First dose on Mon11/08/24 at 0830, Include Respiratory Treatment Education Given 11/11/2024 7:39 AM EDT 175 mcg Given 11/10/2024 9:22 AM EDT 175 mcg Given 11/09/2024 7:39 AM EDT 175 mcg rosuvastatin (CRESTOR) tablet 10 mg 10 mg, Oral, Daily, First dose on Mon11/08/24 at 0900, Avoid grapefruit juice. Given 11/11/2024 8:41 AM EDT 10 mg Given 11/10/2024 8:03 AM EDT 10 mg Given 11/09/2024 8:18 AM EDT 10 mg sennosides-docusate (PERICOLACE) 8.6-50 MG per tablet 2 tablet 2 tablet, Oral, 2 Times Daily PRN, Constipation, Starting on Mon11/07/24 at 1444, HOLD MEDICATION IF PATIENT HAS HAD BOWEL MOVEMENT. Start bowel management regimen if patient has not had a bowel movement after 12 hours. sodium chloride 0.9 % bolus 500 mL 500 mL, Intravenous, at 500 mL/hr, Administer over 1 Hours, Once, On Mon11/07/24 at 2230, For 1 dose New Bag 11/07/2024 10:26 PM EDT 500 mL 500 mL/hr sodium chloride 0.9 % flush 10 mL 10 mL, Intravenous, Every 12 Hours Scheduled, First dose on Mon11/07/24 at 2100 Given 11/07/2024 8:29 PM EDT 10 mL sodium chloride 0.9 % flush 10 mL 10 mL, Intravenous, As Needed, Line Care, Starting on Mon11/07/24 at 1432 sodium chloride 0.9 % infusion 75 mL/hr, Intravenous, Continuous, Starting on Mon11/07/24 at 2230, For 2 days New Bag 11/09/2024 7:46 AM EDT 75 mL/hr 75 mL/hr New Bag 11/08/2024 6:18 PM EDT 75 mL/hr 75 mL/hr New Bag 11/08/2024 4:10 AM EDT 75 mL/hr 75 mL/hr sodium phosphates 10 mmol in sodium chloride 0.9 % 250 mL IVPB 10 mmol, Intravenous, at 62.5 mL/hr, Administer over 4 Hours, Once, On [facility] 11/09/24 at 0715, For 1 dose New Bag 11/09/2024 8:25 AM EDT 10 mmol 62.5 mL/hr sodium zirconium cyclosilicate (LOKELMA) packet 10 g 10 g, Oral, Once, On Mon11/08/24 at 0530, For 1 dose, Empty entire contents of the packet(s) into a glass with at least 3 tablespoons (45 mL) of water. Stir well and drink immediately; if powder remains in the glass, add water, stir and drink immediately; repeat until no powder remains. Administer other oral medications at least 2 hours before or 2 hours after dose. Given 11/08/2024 5:18 AM EDT 10 g technetium albumin aggregated (MAA) solution 1 dose 1 dose, Intravenous, Once in Imaging, On Mon11/08/24 at 1715, For 1 dose, Millicuries: 5 Given 11/08/2024 5:12 PM EDT 1 dose technetium Tc 99m pentetate injection kit 1 dose 1 dose, Inhalation, Once in Imaging, On Mon11/08/24 at 1700, For 1 dose, Group 2 (Hugo) Hazardous Drug - Reproductive Risk Only - See Handling Guide, Millicuries: 31.5 Given 11/08/2024 4:49 PM EDT 1 dose vilazodone (VIIBRYD) tablet 40 mg 40 mg, Oral, Daily, First dose on 11/09/24 at 1130, Take with food Given 11/11/2024 8:41 AM EDT 40 mg Given 11/10/2024 8:03 AM EDT 40 mg Given 11/09/2024 11:53 AM EDT 40 mg documented in this encounter Active and Recently Administered Medications Times are shown in EDT. Scheduled Medication Order 11/09/2024 11/10/2024 11/11/2024 arformoterol (BROVANA) nebulizer solution 15 mcg 15 mcg, Nebulization, 2 Times Daily - RT, First dose on Kelsey 11/07/24 at 1815, Include Respiratory Treatment Education Keep refrigerated. 0738 (Given - Provider: Latisha Witt RRT)1953 (Given - Provider: Erica Plascencia RRT)2129 (Canceled Entry - Provider: Erica Plascencia RRT) 921 (Given - Provider: Shyanne Tripp, KAM)2009 (Given - Provider: Lissa Lara, KAM)2129 (Canceled Entry - Provider: Lisas Lara RRT) 0738 (Given - Provider: Marlen Conrad RRT) aspirin chewable tablet 81 mg 81 mg, Oral, Daily, First dose on Mon11/08/24 at 0900, Herbal/drug interaction: Avoid use with ginkgo biloba. Based on patient request - if ordered for moderate or severe pain, provider allows for administration of a medication prescribed for a lower pain scale. Do not exceed 4 grams of aspirin in a 24 hr period. If given for pain, use the following pain scale: Mild Pain = Pain Score of 1-3, CPOT 1-2 Moderate Pain = Pain Score of 4-6, CPOT 3-4 Severe Pain = Pain Score of 7-10, CPOT 5-8 0818 (Given - Provider: Garland Dumont RN) 0803 (Given - Provider: Gerber Marcial, YASIR) 0841 (Given - Provider: Gerber Marcial, YASIR) budesonide (PULMICORT) nebulizer solution 0.5 mg 0.5 mg, Nebulization, 2 Times Daily - RT, First dose on Mon11/08/24 at 0030, Include Respiratory Treatment Education Do not shake. Protect from light. 0739 (Given - Provider: Latisha Witt RRT)1953 (Given - Provider: Erica Plascencia RRT)2129 (Canceled Entry - Provider: Erica Plascencia RRT) 0915 (Given - Provider: Shyanne Tripp RRT)2019 (Given - Provider: Lissa Lara RRT)2129 (Canceled Entry - Provider: Lissa Lara RRT) 0739 (Given - Provider: Marlen Conrad RRT) gabapentin (NEURONTIN) capsule 400 mg 400 mg, Oral, Every 8 Hours Scheduled, First dose on Mon11/09/24 at 1400, (BRINDA) 1404 (Given - Provider: Garland Dumont RN)2028 (Given - Provider: Becca Barrientos RN)2199 (Canceled Entry - Provider: Becca Barrientos, YASIR) 0558 (Given - Provider: Becca Barrientos, YASIR)1510 (Given - Provider: Gerber Marcial, YASIR)2148 (Given - Provider: Carmina Gilman RN) 0605 (Given - Provider: Carmina Gilman, YASIR) heparin (porcine) 5000 UNIT/ML injection 5,000 Units 5,000 Units, Subcutaneous, Every 8 Hours Scheduled, First dose on Mon11/07/24 at 2230, Indications: VTE Prophylaxis 0556 (Given - Provider: Sofie Barrientos RN)1404 (Given - Provider: Garland Dumont, RN)2028 (Given - Provider: Becca Barrientos, RN)2333 (Canceled Entry - Provider: Becca Barrientos RN) 0558 (Given - Provider: Becca Barrientos RN)1510 (Given - Provider: Gerber Marcial, YASIR)2148 (Given - Provider: Carmina Gilman, RN) 0605 (Given - Provider: Carmina Gilman, YASIR) Hydrocortisone Sod Suc (PF) (Solu-CORTEF) injection 50 mg (CANCELED) 50 mg, Intravenous, Every 6 Hours, First dose on Mon11/08/24 at 0000, For 3 days, Caution: Look alike/sound alike drug alert 0556 (Given - Provider: Sofie Barrientos RN)1152 (Given - Provider: Garland Dumont, YASIR) Hydrocortisone Sod Suc (PF) (Solu-CORTEF) injection 50 mg (COMPLETED)(Linked Group 1) 50 mg, Intravenous, Every 12 Hours, First dose (after last modification) on Mon11/09/24 at 1530, For 3 doses, Caution: Look alike/sound alike drug alert 1603 (Given - Provider: Garland Dumont RN) 0245 (Given - Provider: Becca Barrientos RN)1510 (Given - Provider: Gerber Marcial, YASIR) insulin glargine (LANTUS, SEMGLEE) injection 10 Units 10 Units, Subcutaneous, Daily, First dose on Mon11/08/24 at 0915, Do not hold basal insulin without an order. Consider requesting a dose edit, if needed. ([facility]) 0817 (Given - Provider: Garland Dumont RN) 0803 (Given - Provider: Gerber Marcial, YASIR) 0842 (Given - Provider: Gerber Marcial, YASIR) Insulin Lispro (humaLOG) injection 2-9 Units 2-9 Units, Subcutaneous, 4 Times Daily Before Meals & Nightly, First dose on Kelsey 11/07/24 at 1845, Correction Insulin - Moderate Dose (Total Insulin Dose 40-60 units/day, Average Weight Patient, Patient Taking Oral Hypoglycemic) Blood Glucose 150-199 mg/dL - 2 units Blood Glucose 200-249 mg/dL - 4 units Blood Glucose 250-299 mg/dL - 6 units Blood Glucose 300-349 mg/dL - 7 units Blood Glucose 350-400 mg/dL - 8 units Blood Glucose greater than 400 mg/dL - 9 units & Call Provider ([facility]) Caution: Look alike/sound alike drug alert([facility]) 0817 (Given - Provider: Garladn Dumont, RN)1231 (Given - Provider: Garland Dumont, RN)173 (Given - Provider: Vivi Carmona RN - Comment: bs 162)2026 (Given - Provider: Becca Barrientos, YASIR) 0804 (Not Given - Provider: Gerber Marcial, YASIR - Reason: Order parameters not met)123 (Given - Provider: Gerber Marcial, YASIR)173 (Given - Provider: Gerber Marcial, YASIR)214 (Given - Provider: Carmina Gilman, YASIR) 0842 (Not Given - Provider: Gerber Marcial RN - Reason: Order parameters not met) ipratropium (ATROVENT) nebulizer solution 0.5 mg 0.5 mg, Nebulization, 4 Times Daily - RT, First dose on Kelsey 11/07/24 at 1815, Include Respiratory Treatment Education (SP) 0739 (Given - Provider: Latisha Witt, KAM)1302 (Given - Provider: Latisha Witt RRT)1523 (Given - Provider: Latisha Witt RRT)1630 (Canceled Entry - Provider: Latisha Witt RRT - Comment: previously given)1953 (Given - Provider: Erica Plascencia RRT) 0915 (Given - Provider: Shyanne Tripp, KAM)1327 (Not Given - Provider: Shyanne Tripp RRT - Reason: Patient/family refused)1547 (Not Given - Provider: eCci Reese, KAM - Reason: Patient/family refused)2009 (Given - Provider: Lissa Lara, TRASHMAN) 0739 (Not Given - Provider: Marlen Conrad, TRASHMAN - Reason: Contraindicated) lamoTRIgine (LaMICtal) tablet 100 mg 100 mg, Oral, 2 Times Daily, First dose on Mon11/08/24 at 0030, Caution: Look alike/sound alike drug alert 0818 (Given - Provider: Garland Dumont RN)2027 (Given - Provider: Becca Barrientos RN) 08 (Given - Provider: Gerber Marcial, YASIR)2146 (Given - Provider: Carmina Gilman, RN) 0842 (Given - Provider: Gerber Marcial, RN) mupirocin (BACTROBAN) 2 % nasal ointment 1 Application 1 Application, Each Nare, 2 Times Daily, First dose on Mon11/07/24 at 1530, For 5 days, Begin on day 1 of ICU admission and continue for 5 days, even if patient transferred out of critical care. MUPIROCIN APPLICATION: 1. Place patient's bed at 30 degrees, if tolerated. 2. Wash your hands with warm soapy water or use hand hand packer/packager. 3. Open the tube of mupirocin 2%. 4. Squeeze about 0.5 g (blueberry-size) of mupirocin from the tube onto a sterile applicator or a cotton swab. 5. Apply the swab directly into nostril. Ensure coating of the sides of the nostril. 6. Repeat with second sterile applicator for other nostril. 7. Gently press the sides of the nostrils together and massage gently for 60 seconds. ([facility]) 0818 (Given - Provider: Garland Dumont RN)2027 (Given - Provider: Becca Barrientos RN) 0900 (Canceled Entry - Provider: Gerber Marcial, YASIR)2147 (Given - Provider: Carmina Gilman, YASIR) 0843 (Canceled Entry - Provider: Gerber Marcial RN) nicotine (NICODERM CQ) 21 MG/24HR patch 1 patch 1 patch, Transdermal, Administer over 24 Hours, Every 24 Hours Scheduled, First dose on Mon11/08/24 at 0900, Apply to clean, dry, nonhairy area of skin (typically upper arm or shoulder) Dispose of nicotine replacement therapies and their wrappers in non-hazardous pharmaceutical waste or in regular trash. 0817 (Medication Removed - Provider: Garland Dumont RN)0818 (Medication Applied - Provider: Garland Dumont RN) 0805 (Medication Removed - Provider: Gerber Marcial, YASIR)0810 (Medication Applied - Provider: Gerber Marcial, RN) 0842 (Not Given - Provider: Gerber Marcial RN - Reason: Patient/family refused)0843 (Medication Removed - Provider: Gerber Marcial, YASIR) pantoprazole (PROTONIX) EC tablet 40 mg 40 mg, Oral, Every Morning Before Breakfast, First dose on Mon11/09/24 at 0730, Do not crush or chew the capsules or tablets. The drug may not work as designed if the capsule or tablet is crushed or chewed. Swallow whole. Swallow whole; do not crush, split, or chew. 0818 (Given - Provider: Garland Dumont RN) 0803 (Given - Provider: Gerber Marcial RN) 0841 (Given - Provider: Gerber Marcial RN) piperacillin-tazobactam (ZOSYN) 4.5 g IVPB in 100 mL NS MBP (CD) 4.5 g, Intravenous, Administer over 4 Hours, Every 8 Hours, First dose (after last modification) on Mon11/08/24 at 1000, For 14 doses, Indications: Empiric 0218 (New Bag - Provider: Sofie Barrientos, YASIR)0943 (New Bag - Provider: Garland Dumont RN)1733 (New Bag - Provider: Vivi Carmona RN) 0245 (New Bag - Provider: Becca Barrientos, YASIR)1100 (New Bag - Provider: Gerber Marcial, YASIR)1811 (New Bag - Provider: Gerber Marcial RN) 0205 (New Bag - Provider: Carmina Gilman RN)1000 (Due) prasugrel (EFFIENT) tablet 10 mg 10 mg, Oral, Daily, First dose on Mon11/08/24 at 0900, May crush tablet and mix in water and administer immediately via a gastric tube. DO NOT ADMINISTER if patient has a history of stroke or TIA - contact prescriber. 0818 (Given - Provider: Garland Dumont, RN) 0803 (Given - Provider: Gerber Marcial, RN) 0841 (Given - Provider: Gerber Marcial, YASIR) QUEtiapine (SEROquel) tablet 50 mg 50 mg, Oral, Nightly, First dose on Mon11/08/24 at 0030, Caution: Look alike/sound alike drug alert 2027 (Given - Provider: Becca Barrientos, YASIR) 2147 (Given - Provider: Carmina Gilman, YASIR) revefenacin (YUPELRI) nebulizer solution 175 mcg 175 mcg, Nebulization, Daily - RT, First dose on Mon11/08/24 at 0830, Include Respiratory Treatment Education 0739 (Given - Provider: Latisha Witt, TRASHMAN) 09 (Given - Provider: Shyanne Tripp, TRASHMAN) 0739 (Given - Provider: Marlen Conrad, TRASHMAN) rosuvastatin (CRESTOR) tablet 10 mg 10 mg, Oral, Daily, First dose on Mon11/08/24 at 0900, Avoid grapefruit juice. 0818 (Given - Provider: Garland Dumont, YASIR) 0803 (Given - Provider: Gerber Marcial, YASIR) 0841 (Given - Provider: Gerber Marcial, YASIR) sodium phosphates 10 mmol in sodium chloride 0.9 % 250 mL IVPB (COMPLETED) 10 mmol, Intravenous, at 62.5 mL/hr, Administer over 4 Hours, Once, On 11/09/24 at 0715, For 1 dose 0825 (New Bag - Provider: Garland Dumont, RN) vilazodone (VIIBRYD) tablet 40 mg 40 mg, Oral, Daily, First dose on 11/09/24 at 1130, Take with food 1153 (Given - Provider: Garland Dumont RN) 08 (Given - Provider: Gerber Marcial, YASIR) 0841 (Given - Provider: Gerber Marcial, YASIR) Continuous Medication Order 11/09/2024 11/10/2024 11/11/2024 sodium chloride 0.9 % infusion (CANCELED) 75 mL/hr, Intravenous, Continuous, Starting on Kelsey 11/07/24 at 2230, For 2 days 0746 (New Bag - Provider: Garland Dumont RN)1437 (Stopped - Provider: Garland Dumont RN) PRN Medication Order 11/09/2024 11/10/2024 11/11/2024 acetaminophen (TYLENOL) suppository 650 mg(Linked Group 2) 650 mg, Rectal, Every 4 Hours PRN, Mild Pain, Fever, temperature greater than 100.4 F, Starting on Kelsey 11/07/24 at 1443, If given for fever, use fever parameter: fever greater than 100.4 F Based on patient request - if ordered for moderate or severe pain, provider allows for administration of a medication prescribed for a lower pain scale. Do not exceed 4 grams of acetaminophen in a 24 hr period. Max dose of 2gm for AST/ALT greater than 120 units/L. If given for pain, use the following pain scale: Mild Pain = Pain Score of 1-3, CPOT 1-2 Moderate Pain = Pain Score of 4-6, CPOT 3-4 Severe Pain = Pain Score of 7-10, CPOT 5-8 0745 (Not Given: See Alt - Provider: Garland Dumont RN) acetaminophen (TYLENOL) tablet 650 mg(Linked Group 2) 650 mg, Oral, Every 4 Hours PRN, Fever, fever greater than 100.4 F or headache, Starting on Kelsey 11/07/24 at 1443, If given for fever, use fever parameter: fever greater than 100.4 F Based on patient request - if ordered for moderate or severe pain, provider allows for administration of a medication prescribed for a lower pain scale. Do not exceed 4 grams of acetaminophen in a 24 hr period. Max dose of 2gm for AST/ALT greater than 120 units/L. If given for pain, use the following pain scale: Mild Pain = Pain Score of 1-3, CPOT 1-2 Moderate Pain = Pain Score of 4-6, CPOT 3-4 Severe Pain = Pain Score of 7-10, CPOT 5-8 0745 (Given - Provider: Garland Dumont RN) bisacodyl (DULCOLAX) EC tablet 5 mg(Linked Group 3) 5 mg, Oral, Daily PRN, Constipation, Use if polyethylene glycol is ineffective, Starting on Kelsey 11/07/24 at 1444, Use if no bowel movement after 12 hours. Swallow whole. Do not crush, split, or chew tablet. bisacodyl (DULCOLAX) suppository 10 mg(Linked Group 3) 10 mg, Rectal, Daily PRN, Constipation, Use if bisacodyl oral is ineffective, Starting on Mon11/07/24 at 1444, Use if no bowel movement after 12 hours. Hold for diarrhea dextrose (D50W) (25 g/50 mL) IV injection 25 g 25 g, Intravenous, Every 15 Minutes PRN, Low Blood Sugar, Blood Sugar Less Than 70, Starting on Mon11/07/24 at 1536, Blood sugar less than 70; patient has IV access - Unresponsive, NPO or Unable To Safely Swallow dextrose (GLUTOSE) oral gel 15 g 15 g, Oral, Every 15 Minutes PRN, Low Blood Sugar, Blood sugar less than 70, Starting on Mon11/07/24 at 1536, BS<70, Patient Alert, Is not NPO, Can safely swallow. glucagon (GLUCAGEN) injection 1 mg 1 mg, Intramuscular, Every 15 Minutes PRN, Low Blood Sugar, Blood Glucose Less Than 70, Starting on Mon11/07/24 at 1536, Blood Glucose Less Than 70 - Patient Without IV Access - Unresponsive, NPO or Unable To Safely Swallow Reconstitute powder for injection by adding 1 mL of molding associate-supplied sterile diluent or sterile water for injection to a vial containing 1 mg of the drug, to provide solutions containing 1 mg/mL. Shake vial gently to dissolve. ipratropium-albuterol (DUO-NEB) nebulizer solution 3 mL 3 mL, Nebulization, Every 4 Hours PRN, Shortness of Air, Starting on Mon11/07/24 at 1716, Include Respiratory Treatment Education polyethylene glycol (MIRALAX) packet 17 g(Linked Group 3) 17 g, Oral, Daily PRN, Constipation, Use if senna-docusate is ineffective, Starting on Mon11/07/24 at 1444, Use if no bowel movement after 12 hours. Mix in 6-8 ounces of water. Use 4-8 ounces of water, tea, or juice for each 17 gram dose. sennosides-docusate (PERICOLACE) 8.6-50 MG per tablet 2 tablet(Linked Group 3) 2 tablet, Oral, 2 Times Daily PRN, Constipation, Starting on Kelsey 11/07/24 at 1444, HOLD MEDICATION IF PATIENT HAS HAD BOWEL MOVEMENT. Start bowel management regimen if patient has not had a bowel movement after 12 hours. sodium chloride 0.9 % flush 10 mL 10 mL, Intravenous, As Needed, Line Care, Starting on Kelsey 11/07/24 at 1432 Linked Groups Order Group 1: Hydrocortisone Sod Suc (PF) (Solu-CORTEF) injection 50 mg (COMPLETED)Jump to med 50 mg, Intravenous, Every 12 Hours, First dose (after last modification) on 11/09/24 at 1530, For 3 doses, Caution: Look alike/sound alike drug alert Group 2: acetaminophen (TYLENOL) tablet 650 mgJump to med 650 mg, Oral, Every 4 Hours PRN, Fever, fever greater than 100.4 F or headache, Starting on Kelsey 11/07/24 at 1443, If given for fever, use fever parameter: fever greater than 100.4 F Based on patient request - if ordered for moderate or severe pain, provider allows for administration of a medication prescribed for a lower pain scale. Do not exceed 4 grams of acetaminophen in a 24 hr period. Max dose of 2gm for AST/ALT greater than 120 units/L. If given for pain, use the following pain scale: Mild Pain = Pain Score of 1-3, CPOT 1-2 Moderate Pain = Pain Score of 4-6, CPOT 3-4 Severe Pain = Pain Score of 7-10, CPOT 5-8 Or acetaminophen (TYLENOL) suppository 650 mgJump to med 650 mg, Rectal, Every 4 Hours PRN, Mild Pain, Fever, temperature greater than 100.4 F, Starting on Kelsey 11/07/24 at 1443, If given for fever, use fever parameter: fever greater than 100.4 F Based on patient request - if ordered for moderate or severe pain, provider allows for administration of a medication prescribed for a lower pain scale. Do not exceed 4 grams of acetaminophen in a 24 hr period. Max dose of 2gm for AST/ALT greater than 120 units/L. If given for pain, use the following pain scale: Mild Pain = Pain Score of 1-3, CPOT 1-2 Moderate Pain = Pain Score of 4-6, CPOT 3-4 Severe Pain = Pain Score of 7-10, CPOT 5-8 Group 3: sennosides-docusate (PERICOLACE) 8.6-50 MG per tablet 2 tabletJump to med 2 tablet, Oral, 2 Times Daily PRN, Constipation, Starting on Kelsey 11/07/24 at 1444, HOLD MEDICATION IF PATIENT HAS HAD BOWEL MOVEMENT. Start bowel management regimen if patient has not had a bowel movement after 12 hours. And polyethylene glycol (MIRALAX) packet 17 gJump to med 17 g, Oral, Daily PRN, Constipation, Use if senna-docusate is ineffective, Starting on Kelsey 11/07/24 at 1444, Use if no bowel movement after 12 hours. Mix in 6-8 ounces of water. Use 4-8 ounces of water, tea, or juice for each 17 gram dose. And bisacodyl (DULCOLAX) EC tablet 5 mgJump to med 5 mg, Oral, Daily PRN, Constipation, Use if polyethylene glycol is ineffective, Starting on Kelsey 11/07/24 at 1444, Use if no bowel movement after 12 hours. Swallow whole. Do not crush, split, or chew tablet. And bisacodyl (DULCOLAX) suppository 10 mgJump to med 10 mg, Rectal, Daily PRN, Constipation, Use if bisacodyl oral is ineffective, Starting on Kelsey 11/07/24 at 1444, Use if no bowel movement after 12 hours. Hold for diarrhea documented in this encounter Care Teams Extension Work Director Relationship Specialty Start Date End Date Provider, [place] [address] PCP - General 11/07/24 documented as of this encounter
--- OUTSIDE RECORDS SUMMARY | 2024-11-20 09:46 | XMS_ITS | Encounter Summary ---
[facility] Address [address] [place] [address] Care Team Providers Care Manager Collection Name Role Phone Provider, No Known Primary [...] or training? Not on file Preferred Language Citizen Of [place] 11/08/2024 Sex and Gender Information Value Date Recorded Sex Assigned at Not on file Legal Sex Male 11:35 AM EDT Gender Identity Not on file Sexual Orientation Not on file documented as of this encounter Plan of Treatment Not on file documented as of this encounter Visit Diagnoses Not on filedocumented in this encounter Care Teams Manager Collection Relationship Specialty Start Date End Date Provider, [place] [address] PCP - General 11/07/24 documented as of this encounter
--- OUTSIDE RECORDS SUMMARY | 2024-11-20 09:47 | XMS_ITS | Clinical Summary ---
Author Organization [facility] Address [address] [place] [place] [address] Phone Care Team Providers Care Dry Cleaning Checker Name Role Phone Unavailable Primary Care Provider [...] patient's age to complete this topic Insurance [facility] MEDIC[facility] ADVANTAGE MR Member Subscriber Plan / Payer (Ef fective 2024-Present) Name:Milton Bassett Relation to Subscriber:Self Name:Milton Bassett Payer ID:Not on file Group ID:[id number] Type:Not on file Address: [place] [phone]
--- OUTSIDE RECORDS SUMMARY | 2024-11-20 09:47 | XMS_ITS | Encounter Summary ---
[facility] Address [address] [place] [address] Care Team Providers Care Learning Solutions Specialist Name Role Phone Provider, No Known Primary Care Provider Unavail able Encounter Details Date Type Department Care Team (Late st Contact Info) Description 11/15/2024 Readmission Management [facility] N[facility]SE CALL [facility] [address] [place] [phone] Janet Braun RN Social History Tobacco Use Types Packs/Day [...] or training? Not on file Preferred Language Czech 11/08/2024 Sex and Gender Information Value Date Recorded Sex Assigned at Not on file Legal Sex Male 11:35 AM EDT Gender Identity Not on file Sexual Orientation Not on file documented as of this encounter Miscellaneous Notes * Outreach Note - Janet Braun RN - 11/15/2024 3:31 PM EDT Images from the original note were not included. Medical Week 1 Survey Flowsheet Row Responses [facility] patient discharged from? [facility] Does the patient have one of the following disease processes/diagnoses(primary or secondary)? Other Week 1 attempt successful? Yes [No VR for PCP] Call start time 153 Call end time 154 Discharge diagnosis Syncope Is patient permission given to speak with other caregiver? Yes List who call center can speak with Person spoke with today (if not patient) and relationship Pt and , during call pt gave verbal consent to speak with Meds reviewed with patient/caregiver? Yes Is the patient having any side effects they believe may be caused by any medication additions or changes? No Does the patient have all medications ordered at discharge? Yes Is the patient taking all medications as directed (includes completed medication regime)? Yes Does the patient have a primary care provider? Yes Does the patient have an appointment with their PCP within 7 days of discharge? Yes Comments regarding PCP PCP is tammy Smith Has the patient kept scheduled appointments due by today? Yes DME comments Pt has home O2 in place, for night time and prn daytime, per . Comments Per , today the pt's pulse ox was: 96%RA, BP: 127/96. Pt states MD is aware of his DBPtoday as this reading was in the office, this RN recommended alerting MD if pt continues to have elevated DBP >90LE. Pt reports mild edema present, PCP was aware and awaits Cardiology input beforemaking further changes per pt. This RN recommended pt monitor first morning wts, prior to po intakefor early fluid detection, pt v/u. This nurse and /pt discussed limiting Na in diet to help with BP and edema, per , the pt likes to add salt. Did the patient receive a copy of their discharge instructions? Yes Nursing interventions Reviewed instructions with patient What is the patient's perception of their health status since discharge? Improving Is the patient/caregiver able to teach back signs and symptoms related to disease process for when to call PCP? Yes If the patient is a current smoker, are they able to teach back resources for cessation? -- [RN educated and pt on dangers of smoking in presence of Oxygen.] Week 1 call completed? Yes Call end time [phone] Janet Nazario - Registered Nurse documented in this encounter Plan of Treatment Not on file documented as of this encounter Visit Diagnoses Not on filedocumented in this encounter Care Teams Learning Solutions Specialist Relationship Specialty Start Date End Date Provider, [place] [address] PCP - General 11/07/24 documented as of this encounter
--- OUTSIDE RECORDS SUMMARY | 2024-11-20 09:47 | XMS_ITS | Clinical Summary ---
Author Organization [facility] Address [address] [place] [address] Care Team Providers Care Broadband Engineer Name Role Phone Maged Sharma MD Primary Care Provider [phone] Allergies Active Allergy Reactions Criticality Noted Date [...] comorbidity 11/01/2024 Coronary artery disease invo lving [place]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[place] heart without angina pectoris 11/01/2024 Type 2 [...] [facility] [address] [place] [address] Guillaume Reeves MD Severe obesity (BMI 35.0-39.9) with comorbidity (CMS/HCC) (Primary Dx); Coronary artery disease involving [place]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[place] heart without angina pectoris; Type 2 diabetes mellitus with chronic kidney disease, without long-term current use of insulin, unspecified CKD stage (CMS/HCC); CKD stage 3a, GFR 45-59 ml/min (CMS/HCC); Hypertensive chronic kidney disease with stage 1 through stage 4 chronic kidney disease, or unspecified chronic kidney disease; Chronic kidney disease-mineral and bone disorder (CKD-MBD) 11/01/2024 Orders Only [facility] [address] [address] [place] 11/01/2024 Travel 09/19/2024 Orders Only [facility] [address] [place] [address] [place] CKD (chronic kidney disease) stage 3, GFR 30-59 ml/min ([facility]) (Primary Dx); Vitamin D insufficiency from Last [...] Description 01/24/2025 12:40 PM EST [facility] Visit [facility] [address] [place] [address] Guillaume Reeves MD [address] [place] [address] Health Maintenance Due Date Last [...] 11/30/2011 [facility]-Zoster Vaccines (1 of 2) 2016 [id number] Vaccine (1 - season) 2023 [facility]-Pneumococcal Vaccine: [...] Most Recently Relevant to Health Maintenance Insurance [employer] Care Teams Broadband Engineer Relationship Specialty Start Date End Date Maged Sharma MD [facility] [place] [address] PCP - General 07/31/20
--- OUTSIDE RECORDS SUMMARY | 2024-11-20 09:47 | XMS_ITS | Clinical Summary ---
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 Not on file Preferred Language Iranian 11/08/2024 Sex and Gender Information Value Date [...] 11/30/2011 ZOSTER VACCINE (1 of 2) 2016 Pneumococcal Vaccine 50+ (2 of 2 - PCV) 01/13/2024 1 COVID-19 Vaccine ( - 2023- season) 2024 INFLUENZA VACCINE 12/18/2024 01/22/2019 HEMOGLOBIN A1C 05/10/2025 11/07/2024 Procedures Procedure Name Priority Date/Time Associated Diagnosis Comments POCT GLUCOSE FINGERSTICK Routine 025 7:55 AM EDT CBC (NO DIFF) Routine [...] 7:37 PM EDT POCT GLUCOSE FINGERSTICK Routine 025 4:45 PM EDT POCT GLUCOSE FINGERSTICK Routine 025 12:16 PM EDT SCANNED - TELEMETRY 11/09/2024 7 :31 AM EDT POCT GLUCOSE FINGERSTICK Routine 7:21 AM EDT PHOSPHORUS Routine 11/09/2024 3:21 AM EDT MAGNESIUM Routine 11/09/2024 3:21 AM EDT CBC (NO DIFF) Routine 11/09/2024 3:21 AM EDT COMPREHENSIVE METABOLIC PANEL Routine 11/09/2024 3:21 AM EDT POCT GLUCOSE FINGERSTICK Routine 7:55 PM EDT RESPIRATORY PANEL PCR W/ COVID-19 (SARS-COV-2), [employer] REBUILDER SWAB IN UTM/VTP, 2 HR TAT Routine [...] GLUCOSE FINGERSTICK Routine 025 7:18 AM EDT PHOSPHORUS Routine 11/08/2024 3:10 [...] GLUCOSE FINGERSTICK Timed 025 7:09 PM EDT UREA NITROGEN, URINE Routine 11/07/2024 6:12 PM EDT CREATININE URINE RANDOM (KIDNEY FUNCTION) GFR COMPONENT Routine 11/07/2024 6:12 PM EDT SODIUM, URINE, RANDOM Routine 11/07/2024 6:12 PM EDT URINALYSIS, MICROSCOPIC ONLY Routine 11/07/2024 6:12 PM EDT FENTANYL, URINE STAT 11/07/2024 6:12 PM EDT URINALYSIS W/ CULTURE IF INDICATED STAT 11/07/2024 6:12 PM EDT METANEPHRINES, PHEOCHROMOCYTOMA EVALUATION Routine 11/07/2024 6:12 PM EDT URINE DRUG SCREEN STAT 11/07/2024 6:1 2 PM EDT POCT GLUCOSE FINGERSTICK Timed 025 6:07 PM EDT POCT GLUCOSE FINGERSTICK Timed 025 5:37 PM EDT RESPIRATORY CULTURE Routine 11/07/2024 5 :31 PM EDT LACTIC ACID, REFLEX STAT 11/07/2024 5 :30 PM EDT HIGH SENSITIVITIY TROPONIN T 1HR Timed 11/07/2024 5:29 PM EDT ALDOSTERONE Routine 11/07/2024 5:29 PM EDT RENIN DIRECT ASSAY Routine 11/07/2024 5: 29 PM EDT METANEPHRINES, FRAC. FREE, PLASMA Routine [...] GLUCOSE FINGERSTICK Routine 025 3:10 PM EDT CORTISOL STAT 11/07/2024 3:08 [...] GLUCOSE FINGERSTICK Routine 025 2:38 PM EDT from Last 3 Months Results * POC Glucose 4x Daily Before Meals & at Bedtime (11/11/2024 7:55 AM EDT) Only the most recent of21 resultswithin the time period is included. Glucose 72 70 - 130 mg/dL 11/11/2024 8:01 AM EDT [facility] Comment:Serial Number: [id number]: [id number] Blood 11/11/2024 7:55 AM EDT 11/11/2024 8:01 AM EDT us Israel Jimenez MD POINT OF CARE TEST ORDERABLE S Final Result [facility]
[address] [place] [address], * (ABNORMAL) CBC (No Diff) (11/11/2024 5:14 AM EDT) Only the most recent of3 resultswithin the time period is included. WBC 7.92 3.40 - 10.80 10*3/mm3 11/11/2024 5:48 AM EDT [facility] RBC 4.69 4.14 - 5.80 10*6/mm3 11/11/2024 5:48 AM EDT [facility] Hemoglobin 13.4 13.0 - 17.7 g/dL 11/11/2024 5:48 AM EDT [facility] Hematocrit 42.9 37.5 - 51.0 % 11/11/2024 5:48 AM EDT [facility] MCV 91.5 79.0 - 97.0 fL 11/11/2024 5:48 AM EDT [facility] MCH 28.6 26.6 - 33.0 pg 11/11/2024 5:48 AM EDT [facility] MCHC 31.2(L) 31.5 - 35.7 g/dL 11/11/2024 5:48 AM EDT [facility] RDW 14.9 12.3 - 15.4 % 11/11/2024 5:48 AM EDT [facility] RDW-SD 50.1 37.0 - 54.0 fl 11/11/2024 5:48 AM EDT [facility] MPV 11.7 6.0 - 12.0 fL 11/11/2024 5:48 AM EDT [facility] Platelets 111(L) 140 - 450 10*3/mm3 11/11/2024 5:48 AM EDT [facility] Blood Venipuncture / Unknown 11/11/2024 5:14 AM EDT 11/11/2024 5:36 AM EDT Israel Jimenez MD LAB BLOOD ORDERABLES Final R esult [facility]
[address] [place] [address], * (ABNORMAL) Comprehensive Metabolic Panel (11/11/2024 5:14 AM EDT) Only the most recent of5 resultswithin the time period is included. Glucose 102(H) 65 - 99 mg/dL 11/11/2024 6:03 AM EDT [facility] BUN 19.4 6.0 - 20.0 mg/dL 11/11/2024 6:03 AM EDT [facility] Creatinine 1.38(H) 0.76 - 1.27 mg/dL 11/11/2024 6:03 AM [facility] Sodium 142 136 - 145 mmol/L 11/11/2024 6:03 AM [facility] Potassium 4.1 3.5 - 5.2 mmol/L 11/11/2024 6:03 AM [facility] Comment:Slight hemolysis det ected by analyzer. Result may be falsely elevated. Chloride 104 98 - 107 mmol/L 11/11/2024 6:03 AM [facility] CO2 28.0 22.0 - 29.0 mmol/L 11/11/2024 6:03 AM [facility] Calcium 8.7 8.6 - 10.5 mg/dL 11/11/2024 6:03 AM [facility] Total Protein 6.0 6.0 - 8.5 g/dL 11/11/2024 6:03 AM [facility] Albumin 3.5 3.5 - 5.2 g/dL 11/11/2024 6:03 AM [facility] ALT (SGPT) 41 1 - 41 U/L 11/11/2024 6:03 AM [facility] AST (SGOT) 35 1 - 40 U/L 11/11/2024 6:03 AM [facility] Alkaline Phosphatase 42 39 - 117 U/L 11/11/2024 6:03 AM [facility] Total Bilirubin 0.3 0.0 - 1.2 mg/dL 11/11/2024 6:03 AM [facility] Globulin 2.5 gm/dL 11/11/2024 6:03 AM [facility] Comment:Calculated Result A/G Ratio 1.4 g/dL 11/11/2024 6:03 AM [facility] BUN/Creatinine Ratio 14.1 7.0 - 25.0 11/11/2024 6:03 AM [facility] Anion Gap 10.0 5.0 - 15.0 mmol/L 11/11/2024 6:03 AM [facility] eGFR 59.6(L) >60.0 mL/min/1.7 3 11/11/2024 6:03 AM EDT [facility] Blood Venipuncture / Unknown 11/11/2024 5:14 AM EDT 11/11/2024 5:36 AM EDT Narrative [facility] - 11/11/2024 6:03 AM EDT [...] MD LAB BLOOD ORDERABLES Final R esult [facility]
[address] [place] [address], * Telemetry Scan (11/10/2024 7:42 PM EDT) Only the most recent of3 resultswithin the time period is included. [facility] ECG ORDERABLES Final Result * XR Chest [...] MD 11/10/2024 9:32 AM EDT Workstation ID: [id number] Narrative 11/10/2024 9:32 AM EDT XR CHEST [...] MD 11/10/2024 9:32 AM EDT Workstation ID: [id number] Israel Jimenez MD IMG DIAGNOSTIC IMAGING ORDER NAYE Final Result * (ABNORMAL) Phosphorus (11/09/2024 3:21 AM EDT) Only the most recent of3 resultswithin the time period is included. Pathologist [facility] Phosphorus 2.0(L) 2.5 - 4.5 mg/dL 11/09/2024 5:17 AM EDT [facility] Blood Venipuncture / Unknown 11/09/2024 3:21 AM EDT 11/09/2024 4:14 AM EDT us Israel Jimenez MD LAB BLOOD ORDERABLES Final R esult [facility]
[address] [place] [address], * Magnesium (11/09/2024 3:21 AM EDT) Only the most recent of3 resultswithin the time period is included. Pathologist [facility] Magnesium 2.0 1.6 - 2.6 mg/dL 11/09/2024 5:07 AM EDT [facility] Blood Venipuncture / Unknown 11/09/2024 3:21 AM EDT 11/09/2024 4:14 AM EDT Israel Jimenez MD LAB BLOOD ORDERABLES Final R esult [facility]
[address] [place] [address], * Respiratory Panel PCR w/COVID-19(SARS-CoV-2) WALT/RDAHA/YANI/PAD/COR/ANISHA In-House, [employer]LECT[employer] RE[employer] Swab in UTM/VTM, 2 HR TAT - Swab, Nasopharynx (11/08/2024 6:31 PM EDT) [facility] ADENOVIRUS, PCR Not Detected Not Detected BIOFIRE TORCH 11/08/2024 7:54 PM EDT [facility] Coronavirus 229E Not Detected Not Detected BIOFIRE TORCH 11/08/2024 7:54 PM EDT [facility] Coronavirus HKU1 Not Detected Not Detected BIOFIRE TORCH 11/08/2024 7:54 PM EDT [facility] Coronavirus NL63 Not Detected Not Detected BIOFIRE TORCH 11/08/2024 7:54 PM EDT [facility] Coronavirus OC43 Not Detected Not Detected BIOFIRE TOR 11/08/2024 7:54 PM EDT [facility] COVID19 Not Detected Not Detected - Ref. Range BIOFIRE TORCH 11/08/2024 7:54 PM EDT [facility] Human Metapneumovirus Not Detected Not Detected BIOFIRE TORCH 11/08/2024 7:54 PM EDT [facility] Human Rhinovirus/Enterov irus Not Detected Not Detected BIOFIRE TOR 11/08/2024 7:54 PM EDT [facility] Influenza A PCR Not Detected Not Detected BIOFIRE TOR 11/08/2024 7:54 PM EDT [facility] Influenza B PCR Not Detected Not Detected BIOFIRE TOR 11/08/2024 7:54 PM EDT [facility] Parainfluenza Virus 1 Not Detected Not Detected BIOFIRE TOR 11/08/2024 7:54 PM EDT [facility] Parainfluenza Virus 2 Not Detected Not Detected BIOFIRE TOR 11/08/2024 7:54 PM EDT [facility] Parainfluenza Virus 3 Not Detected Not Detected BIOFIRE TOR 11/08/2024 7:54 PM EDT [facility] Parainfluenza Virus 4 Not Detected Not Detected BIOFIRE TOR 11/08/2024 7:54 PM EDT [facility] RSV, PCR Not Detected Not Detected BIOFIRE TOR 11/08/2024 7:54 PM EDT [facility] Bordetella pertussis pcr Not Detected Not Detected BIOFIRE TOR 11/08/2024 7:54 PM EDT [facility] Bordetella parapertussis PCR Not Detected Not Detected BIOFIRE TOR 11/08/2024 7:54 PM EDT [facility] Chlamydophila pneumoniae PCR Not Detected Not Detected BIOFIRE TOR 11/08/2024 7:54 PM EDT [facility] Mycoplasma pneumo by PCR Not Detected Not Detected BIOFIRE TOR 11/08/2024 7:54 PM EDT [facility] Swab Nasopharyngeal structure / Unknown Collection / Unknown 11/08/2024 6:31 PM EDT 11/08/2024 7:03 PM EDT [facility] - 11/08/2024 7:54 PM EDT In [...] Dina Sanchez APRN MICROBIOLOGY - [facility] Final Result Performing Organization Address [facility] Co de Phone Number [facility]
[address] [place] [address], * Lactic Acid, Plasma (11/08/2024 6:28 PM EDT) Only the most recent of2 resultswithin the time period is included. [facility] Lactate 1.7 0.5 - 2.0 mmol/L 11/08/2024 7:00 PM EDT [facility] Comment:Falsely depressed re sults may occur on samples drawn from patients receiving N-Acetylcysteine (NAC) or Metamizole. Blood Venipuncture / Unknown 11/08/2024 6:28 PM EDT 11/08/2024 6:41 PM EDT Dina Sanchez APRN LAB BLOOD ORDERABLES Final Result Performing Organization Address [facility] de Phone Number [facility]
[address] [place] [address], * CT Chest Without Contrast Diagnostic (11/08/2024 5:55 PM EDT) Anatomical Region Laterality Modality Chest N/A Computed Tomogra phy 11/09/2024 8:12 AM EDT Impressions 11/09/2024 8:16 AM EDT Impression: 1.Bilateral lower lung airspace disease suggestive of multifocal pneumonia. 2.Trace bilateral pleural effusions. Electronically Signed: Rah Mayberry MD 11/09/2024 8:16 AM EDT Workstation ID: [id number] Narrative 11/09/2024 8:[address] CHEST [...] MD 11/09/2024 8:16 AM EDT Workstation ID: [id number] us Israel Jimenez MD IMG CT ORDERABLES Final Resu lt * NM Lung Ventilation Perfusion (11/08/2024 5:42 PM EDT) Anatomical Region Laterality Modality Chest N/A Nuclear Medicine 11/08/2024 11:5 5 PM EDT Impressions 11/09/2024 12:02 AM EDT Low probability for pulmonary embolism Electronically Signed: Acosta Maxwell MD 11/09/2024 12:02 AM EDT Workstation ID: [id number] Narrative 11/09/2024 12:02 AM EDT DATE OF [...] MD 11/09/2024 12:02 AM EDT Workstation ID: [id number] us Israel Jimenez MD [facility] [place] ORDERABLES Final Resu lt * Duplex [...] Basic Metabolic Panel (11/08/2024 4:21 PM EDT) [facility] Glucose 201(H) 65 - 99 mg/dL 11/08/2024 4:56 PM EDT [facility] BUN 30.5(H) 6.0 - 20.0 mg/dL 11/08/2024 4:56 PM EDT [facility] Creatinine 2.36(H) 0.76 - 1.27 mg/dL 11/08/2024 4:56 PM EDT [facility] Sodium 135(L) 136 - 145 mmol/L 11/08/2024 4:56 PM EDT [facility] Potassium 4.7 3.5 - 5.2 mmol/L 11/08/2024 4:56 PM EDT [facility] Comment:Specimen hemolyzed. Result may be falsely elevated. Chloride 99 98 - 107 mmol/L 11/08/2024 4:56 PM EDT [facility] CO2 24.4 22.0 - 29.0 mmol/L 11/08/2024 4:56 PM EDT [facility] Calcium 9.2 8.6 - 10.5 mg/dL 11/08/2024 4:56 PM EDT [facility] BUN/Creatinine Ratio 12.9 7.0 - 25.0 11/08/2024 4:56 PM EDT [facility] Anion Gap 11.6 5.0 - 15.0 mmol/L 11/08/2024 4:56 PM EDT [facility] eGFR 31.3(L) >60.0 mL/min/1.7 3 11/08/2024 4:56 PM EDT [facility] Blood Venipuncture / Unknown 11/08/2024 4:21 PM EDT 11/08/2024 4:28 PM EDT Narrative [facility] - 11/08/2024 4:56 PM EDT GFR [...] MD LAB BLOOD ORDERABLES Final R esult [facility]
[address] [place] [address], * (ABNORMAL) CBC Auto Differential (11/08/2024 3:10 AM EDT) Only the most recent of2 resultswithin the time period is included. WBC 15.14(H) 3.40 - 10.80 10*3/mm3 11/08/2024 3:39 AM [facility] RBC 5.17 4.14 - 5.80 10*6/mm3 11/08/2024 3:39 AM [facility] Hemoglobin 14.7 13.0 - 17.7 g/dL 11/08/2024 3:39 AM [facility] Hematocrit 45.7 37.5 - 51.0 % 11/08/2024 3:39 AM [facility] MCV 88.4 79.0 - 97.0 fL 11/08/2024 3:39 AM [facility] MCH 28.4 26.6 - 33.0 pg 11/08/2024 3:39 AM [facility] MCHC 32.2 31.5 - 35.7 g/dL 11/08/2024 3:39 AM [facility] RDW 15.1 12.3 - 15.4 % 11/08/2024 3:39 AM [facility] RDW-SD 49.2 37.0 - 54.0 fl 11/08/2024 3:39 AM [facility] MPV 11.4 6.0 - 12.0 fL 11/08/2024 3:39 AM [facility] Platelets 154 140 - 450 10*3/mm3 11/08/2024 3:39 AM [facility] Neutrophil % 87.0(H) 42.7 - 76.0 % 11/08/2024 3:39 AM [facility] Lymphocyte % 7.9(L) 19.6 - 45.3 % 11/08/2024 3:39 AM [facility] Monocyte % 4.3(L) 5.0 - 12.0 % 11/08/2024 3:39 AM [facility] Eosinophil % 0.1(L) 0.3 - 6.2 % 11/08/2024 3:39 AM EDT [facility] Basophil % 0.1 0.0 - 1.5 % 11/08/2024 3:39 AM EDT [facility] Immature Grans % 0.6(H) 0.0 - 0.5 % 11/08/2024 3:39 AM EDT [facility] Neutrophils, Absolute 13.18(H) 1.70 - 7.00 10*3/mm3 11/08/2024 3:39 AM EDT [facility] Lymphocytes, Absolute 1.20 0.70 - 3.10 10*3/mm3 11/08/2024 3:39 AM EDT [facility] Monocytes, Absolute 0.65 0.10 - 0.90 10*3/mm3 11/08/2024 3:39 AM EDT [facility] Eosinophils, Absolute 0.01 0.00 - 0.40 10*3/mm3 11/08/2024 3:39 AM EDT [facility] Basophils, Absolute 0.01 0.00 - 0.20 10*3/mm3 11/08/2024 3:39 AM EDT [facility] Immature Grans, Absolute 0.09(H) 0.00 - 0.05 10*3/mm3 11/08/2024 3:39 AM EDT [facility] nRBC 0.0 0.0 - 0.2 /100 WBC 11/08/2024 3:39 AM EDT [facility] Blood Venipuncture / Unknown 11/08/2024 3:10 AM EDT 11/08/2024 3:35 AM EDT us Dina Sanchez TRIM SAWYER LAB BLOOD ORDERABLES Final Result [facility]
[address] [place] [address], * (ABNORMAL) STAT Lactic Acid, Reflex (11/08/2024 12:04 AM EDT) Only the most recent of3 resultswithin the time period is included. Lactate 2.6(HH) 0.5 - 2.0 mmol/L 11/08/2024 1:29 AM EDT [facility] Comment:Falsely depressed re sults may occur on samples drawn from patients receiving N-Acetylcysteine (NAC) or Metamizole. Blood Venipuncture / Unknown 11/08/2024 12:04 AM EDT 11/08/2024 1:01 AM EDT Dina Sanchez TRIM SAWYER LAB BLOOD ORDERABLES Final Result [facility]
[address] [place] [address], * (ABNORMAL) Metanephrines, Pheochromocytoma Evaluation - Urine, Clean Catch (11/07/2024 6:12 PM EDT) Pathologist [facility] Creatinine, Urine 95.1 Not Estab. mg/dL 11/16/2024 [...] LAB - 11/16/2024 9:10 AM EDT Test(s) 296501-[id number], Ur; [id number]-Rrnejzwqmmfy, Ur was developed and its performance characteristics determined by [facility]. It has not been cleared or approved by the Food and Drug Administration. Performed at: [address] [id number] Tape Recording Machine Operator: Fay Conway MD, Phone: [phone] Dina Sanchez TRIM SAWYER URINE ORDERABLES Final Resu lt [facility] [address] [place] [address], [place] [phone] * Urinalysis, Microscopic Only - Urine, Clean Catch (11/07/2024 6:12 PM EDT) RBC, UA 0-2 None Seen, 0-2 /HPF 11/07/2024 6:43 PM EDT [facility] WBC, UA 0-2 None Seen, 0-2 /HPF 11/07/2024 6:43 PM EDT [facility] Comment:Urine culture not in dicated. Bacteria, UA None Seen None Seen /HPF 11/07/2024 6:43 PM EDT [facility] Squamous Epithelial Cells, UA 0-2 None Seen, 0-2 /HPF 11/07/2024 6:43 PM EDT [facility] Hyaline Casts, UA 13-20 None Seen /LPF 11/07/2024 6:43 PM EDT [facility] Methodology Automated Microscopy 11/07/2024 6:43 PM EDT [facility] Urine Urine specimen obtained by clean catch procedure / Unknown Collection / Unknown 11/07/2024 6:12 PM EDT 11/07/2024 6:33 PM EDT Dina Sanchez TRIM SAWYER URINE ORDERABLES Final Resu lt [facility]
[address] [place] [address], [place] [phone] * (ABNORMAL) Urinalysis With Culture If Indicated - Urine, Clean Catch (11/07/2024 6:12 PM EDT) Color, UA Yellow Yellow, Straw 11/07/2024 6:43 PM EDT [facility] Appearance, UA Clear Clear 11/07/2024 6:43 PM EDT [facility] pH, UA <=5.0 5.0 - 8.0 11/07/2024 6:43 PM EDT [facility] Specific [place], UA 1.013 1.005 - 1.030 11/07/2024 6:43 PM EDT [facility] Glucose, UA Negative Negative 11/07/2024 6:43 PM EDT [facility] Ketones, UA Negative Negative 11/07/2024 6:43 PM EDT [facility] Bilirubin, UA Negative Negative 11/07/2024 6:43 PM EDT [facility] Blood, UA Negative Negative 11/07/2024 6:43 PM EDT [facility] Protein, UA Trace(A) Negative 11/07/2024 6:43 PM EDT [facility] Leuk Esterase, UA Trace(A) Negative 11/07/2024 6:43 PM EDT [facility] Nitrite, UA Negative Negative 11/07/2024 6:43 PM EDT [facility] Urobilinogen, UA 0.2 E.U./dL 0.2 - 1.0 E.U./dL 11/07/2024 6:43 PM EDT [facility] Urine Urine specimen obtained by clean catch procedure / Unknown Collection / Unknown 11/07/2024 6:12 PM EDT 11/07/2024 6:33 PM EDT Narrative [facility] - 11/07/2024 6:43 PM EDT In absence of clinical symptoms, the presence of pyuria, bacteria, and/or nitrites on the urinalysis result does not correlate with infection. us Dina Sanchez TRIM SAWYER URINE ORDERABLES Final Resu lt [facility]
[address] [place] [address], * Urea Nitrogen, Urine - Urine, Clean Catch (11/07/2024 6:12 PM EDT) Urea Nitrogen, Urine 119 mg/dL 11/08/2024 12:25 PM EDT [facility] Urine Urine specimen obtained by clean catch procedure / Unknown Collection / Unknown 11/07/2024 6:12 PM EDT 11/08/2024 7:51 AM EDT Narrative [facility] - 11/08/2024 12:25 PM EDT Reference intervals for random urine have not been established. Clinical usage is dependent upon physician's interpretation in combination with other laboratory tests. us Israel Jimenez MD URINE ORDERABLES Final Resul t [facility]
[address] [place] [address], * (ABNORMAL) Urine Drug Screen - Urine, Clean Catch (11/07/2024 6:12 PM EDT) THC, Screen, Urine Negative Negative 2024 6:47 PM EDT [facility] Phencyclidine (PCP), Urine Negative Negative 11/07/2024 6:47 PM EDT [facility] Cocaine Screen, Urine Negative Negative 11/07/2024 6:47 PM EDT [facility] Methamphetamine, Ur Negative Negative 11/07/2024 6:47 PM EDT [facility] Opiate Screen Negative Negative 11/07/2024 6:47 PM EDT [facility] Amphetamine Screen, Urine Negative Negative 11/07/2024 6:47 PM EDT [facility] Benzodiazepine Screen, Urine Positive(A) Negative 11/07/2024 6:47 PM EDT [facility] Tricyclic Antidepressants Screen Positive(A) Negative 11/07/2024 6:47 PM EDT [facility] Methadone Screen, Urine Negative Negative 11/07/2024 6:47 PM EDT [facility] Barbiturates Screen, Urine Negative Negative 11/07/2024 6:47 PM EDT [facility] Oxycodone Screen, Urine Negative Negative 11/07/2024 6:47 PM EDT [facility] Buprenorphine, Screen, Urine Negative Negative 11/07/2024 6:47 PM EDT [facility] Urine Urine specimen obtained by clean catch procedure / Unknown Collection / Unknown 11/07/2024 6:12 PM EDT 11/07/2024 6:34 PM EDT [facility] - 11/07/2024 6:47 PM EDT Cutoff [...] when unconfirmed results are used. Dina Sanchez TRIM SAWYER URINE ORDERABLES Final Resu lt [facility]
[address] [place] [address], * Sodium, Urine, Random - Urine, Clean Catch (11/07/2024 6:12 PM EDT) Sodium, Urine 55 mmol/L 11/08/2024 8:11 AM EDT [facility] Urine Urine specimen obtained by clean catch procedure / Unknown Collection / Unknown 11/07/2024 6:12 PM EDT 11/08/2024 7:51 AM EDT [facility] - 11/08/2024 8:11 AM EDT Reference intervals for random urine have not been established. Clinical usage is dependent upon physician's interpretation in combination with other laboratory tests. Israel Jimenez MD URINE ORDERABLES Final Resul t Performing Organization Address [facility]/ZIP Co de Phone Number [facility]
[address] [place] [address], * Fentanyl, Urine - Urine, Clean Catch (11/07/2024 6:12 PM EDT) Fentanyl, Urine Negative Negative 11/07/2024 7:00 PM EDT [facility] Urine Urine specimen obtained by clean catch procedure / Unknown Collection / Unknown 11/07/2024 6:12 PM EDT 11/07/2024 6:34 PM EDT [facility] - 11/07/2024 7:00 PM EDT Negative [...] Resu lt Performing Organization Address [facility] Co de Phone Number [facility]
[address] [place] [address], * Creatinine Urine Random (kidney function) GFR component - Urine, Clean Catch (11/07/2024 6:12 PM EDT) Creatinine, Urine 94.0 mg/dL 11/08/2024 12:25 PM EDT [facility] Urine Urine specimen obtained by clean catch procedure / Unknown Collection / Unknown 11/07/2024 6:12 PM EDT 11/08/2024 7:51 AM EDT [facility] - 11/08/2024 12:25 PM EDT Reference intervals for random urine have not been established. Clinical usage is dependent upon physician's interpretation in combination with other laboratory tests. Israel Jimenez MD URINE ORDERABLES Final Resul t Performing Organization Address City/[facility]/ZIP Co de Phone Number [facility]
[address] [place] [address], * Respiratory Culture - Sputum, Cough (11/07/2024 5:31 PM EDT) Pathologist [facility] Respiratory Culture Scant growth (1+) Normal respiratory candace. No S. aureus or Pseudomonas aeruginosa detected. Final report. TRINI 11/09/2024 12:30 PM EDT [facility] Gram Stain Moderate (3+) WBCs per low power field 11/09/2024 12:30 PM EDT [facility] Gram Stain Rare (1+) Epithelial cells per low power field 11/09/2024 12:30 PM EDT [facility] Gram Stain No organisms seen 11/09/2024 12:30 PM EDT [facility] Sputum Coughed sputum specimen / Unknown Collection / Unknown 11/07/2024 5:31 PM EDT 11/07/2024 5:42 PM EDT Dina Sanchez APRN MICROBIOLOGY - GENERAL ORDE TOBY Final Result Performing Organization Address City/[facility]/ZIP Co de Phone Number [facility]
[address] [place] [address], [facility]
[address] [place] [address], * (ABNORMAL) High Sensitivity Troponin T 1Hr (11/07/2024 5:29 PM EDT) Pathologist [facility] HS Troponin T 22(H) <22 ng/L 11/07/2024 6:17 PM EDT [facility] Troponin T Numeric Delta 0 ng/L 11/07/2024 6:17 PM EDT [facility] Troponin T % Delta 0 Abnormal if >/= 20% 11/07/2024 6:17 PM EDT [facility] Blood Venipuncture / Unknown 11/07/2024 5:29 PM EDT 11/07/2024 5:52 PM EDT Narrative [facility] - 11/07/2024 6:17 PM EDT [...] Sanchez APRN LAB BLOOD ORDERABLES Final Result [facility]
[address] [place] [address], * Metanephrines, Frac. Free, Plasma (11/07/2024 5:29 PM EDT) Normetanephrine 186.7 0.0 - 244.0 pg/mL 11/11/2024 9:08 PM EDT [facility] Metanephrine 34.1 0.0 - 88.0 pg/mL 11/11/2024 9:08 PM EDT [facility] Blood Venipuncture / Unknown 11/07/2024 5:29 PM EDT 11/07/2024 5:55 PM EDT [facility] - 11/11/2024 9:08 PM EDT Test(s) [id number]-Ryuncasuftoibcf, Pl; [id number]-Attrllfljfcq, Pl was developed and its performance characteristics determined by [facility]. It has not been cleared or approved by the Food and Drug Administration. Performed at: 01 - [address] [id number] Tape Recording Machine Operator: Fay Conway MD, Phone: [phone] D[facility]eJames [facility] Center[facility] BLOOD ORDERABLES Final Result Performing Organization Address City/[facility]/ZIP Co de Phone Number [facility] [address] [place] [address], * Aldosterone (11/07/2024 5:29 PM EDT) Aldosterone 5.0 0.0 - 30.0 ng/dL 11/13/2024 11:11 AM EDT [facility] Blood Venipuncture / Unknown 11/07/2024 5:29 PM EDT 11/07/2024 5:53 PM EDT Narrative [facility] - 11/13/2024 11:11 AM EDT Test(s) [id number]-Ezyfnggvazq was developed and its performance characteristics determined by [facility] [employer] [facility]. It has not been cleared or approved by the Food and Drug Administration. Performed at: [address] [id number] Tape Recording Machine Operator: Fay Conway MD, Phone: [phone] Dina oGodeJames J. Peters [facility] Medical CenterN LAB BLOOD ORDERABLES Final Result Performing Organization Address City/[facility]/ZIP Co de Phone Number [facility] [address] [place] [address], * (ABNORMAL) Renin Direct Assay (11/07/2024 5:29 PM EDT) Renin Activity 10.521(H) 0.167 - 5.380 ng/mL/hr 11/18/2024 12:07 AM EDT [facility] Blood Venipuncture / Unknown 11/07/2024 5:29 PM EDT 11/07/2024 5:53 PM EDT Narrative [facility] - 11/18/2024 12:07 AM EDT Test(s) [id number]-[id number] Activity, Plasma was developed and its performance characteristics determined by [facility] [employer] [facility]. It has not been cleared or approved by the Food and Drug Administration. Performed at: [address] [id number] Tape Recording Machine Operator: Fay Conway MD, Phone: [phone] Dina Sanchez APRN LAB BLOOD ORDERABLES Final Result Performing Organization Address City/[facility] Co de Phone Number [facility] [address] [place] [id number], * Blood Culture - Blood, Hand, Left (11/07/2024 5:29 PM EDT) Only the most recent of2 resultswithin the time period is included. Pathologist [facility] Blood Culture No growth at 5 days 11/12/2024 6:01 PM EDT [facility] Blood Structure of left hand / Unknown Venipuncture / Unknown 11/07/2024 5:29 PM EDT 11/07/2024 6:00 PM EDT Dina Sanchez APRN MICROBIOLOGY - GENERAL ORDE RABLES Final Result Performing Organization Address [facility] Co de Phone Number [facility]
[address] [place] [address], [place] [phone] * MRSA Screen, PCR (Inpatient) - Swab, Nares (11/07/2024 5:19 PM EDT) [facility] MRSA PCR Negative Negative CEPHEID GENEXPERT 11/07/2024 6:38 PM EDT [facility] Swab Structure of anterior naris / Unknown Collection / Unknown 11/07/2024 5:19 PM EDT 11/07/2024 5:26 PM EDT Narrative [facility] - 11/07/2024 6:38 PM EDT The negative predictive value of this diagnostic test is high and should only be used to consider de-escalating anti-MRSA therapy. A positive result may indicate colonization with MRSA and must be correlated clinically. MRSA Negative Dina Sanchez APRN MICROBIOLOGY - GENERAL ORDE RABLES Final Result Performing Organization Address [facility] Co de Phone Number [facility]
[address] [place] [address], * ECHO COMPLETE W/ DOPPLER AND COLOR FLOW (11/07/2024 3:51 PM EDT) EF(MOD-bp) 54.9 % LVIDd 4.7 cm LVIDs [...] 3:43 PM EDT) QT Interval 418 ms BH ECG QTC Interval 502 ms ECG 11/07/2024 [...] By: Confirmed By: Mei Mccurdy Dina Sanchez TRIM SAWYER ECG ORDERABLES Final Resul t ECG * (ABNORMAL) Procalcitonin (11/07/2024 3:08 PM EDT) Procalcitonin 0.38(H) 0.00 - 0.25 ng/mL 11/07/2024 4:24 PM EDT [facility] Blood Line / Unknown 11/07/2024 3: 08 PM EDT 11/07/2024 3:15 PM EDT Narrative [facility] - 11/07/2024 4:24 PM EDT [...] Day 4 values are available. Refer to http://www.atucwi-qqj-ksuqqosexd.com Change in PCT <=80% A decrease of [...] severe sepsis or septic shock. Dina Sanchez TRIM SAWYER LAB BLOOD ORDERABLES Final Result [facility]
[address] [place] [address], * (ABNORMAL) High Sensitivity Troponin T (11/07/2024 3:08 PM EDT) [facility] Signature HS Troponin T 22(H) <22 ng/L 11/07/2024 4:30 PM EDT [facility] Blood Line / Unknown 11/07/2024 3: 08 PM EDT 11/07/2024 3:15 PM EDT [facility] - 11/07/2024 4:30 PM EDT High [...] to an underlying chronic condition. Dina Sanchez TRIM SAWYER LAB BLOOD ORDERABLES Final Result Performing Organization Address City/[facility]/ZIP Co de Phone Number [facility]
[address] [place] [address], * Protime-INR (11/07/2024 3:08 PM EDT) Protime 14.5 12.2 - 15.3 Seconds 11/07/2024 4:07 PM EDT [facility] INR 1.07 0.89 - 1.12 11/07/2024 4:07 PM EDT [facility] Blood Line / Unknown 11/07/2024 3: 08 PM EDT 11/07/2024 3:15 PM EDT Dina Sanchez TRIM SAWYER LAB BLOOD ORDERABLES Final Result Performing Organization Address [facility]/ZIP Co de Phone Number [facility]
[address] [place] [address], * BNP (11/07/2024 3:08 PM EDT) proBNP 74.0 0.0 - 900.0 pg/mL 11/07/2024 4:30 PM EDT [facility] Blood Line / Unknown 11/07/2024 3: 08 PM EDT 11/07/2024 3:15 PM EDT Narrative [facility] - 11/07/2024 4:30 PM EDT [...] Final Result Performing Organization Address [facility] Co de Phone Number [facility]
[address] [place] [address], * Cortisol (11/07/2024 3:08 PM EDT) Cortisol 7.95 mcg/dL 11/07/2024 4:30 PM EDT [facility] Blood Line / Unknown 11/07/2024 3: 08 PM EDT 11/07/2024 3:15 PM EDT [facility] - 11/07/2024 4:30 PM EDT Cortisol Reference Ranges: Cortisol 6AM - 10AM Range: 6.02-18.40 mcg/dl Cortisol 4PM - 8PM Range: 2.68-10.50 mcg/dl Results may be falsely increased if patient taking Biotin. Dina Sanchez APRN LAB BLOOD ORDERABLES Final Result Performing Organization Address [facility]/[place] de Phone Number [facility]
[address] [place] [address], * (ABNORMAL) Hemoglobin A1c (11/07/2024 3:00 PM EDT) Hemoglobin A1C 5.89(H) 4.80 - 5.60 % 11/07/2024 5:36 PM EDT [facility] Blood Line / Unknown 11/07/2024 3: 00 PM EDT 11/07/2024 3:04 PM EDT [facility] - 11/07/2024 5:36 PM EDT Hemoglobin A1C Ranges: Increased Risk for Diabetes 5.7% to 6.4% Diabetes >= 6.5% Diabetic Goal < 7.0% us Dina Sanchez TRIM SAWYER LAB BLOOD ORDERABLES Final Result [facility]
[address] [place] [address], * CT Outside Head (11/07/2024 2:56 PM [...] Final Result from Last 3 Months Insurance Gildardo Tolbert Denise DobbinsanaRJ [id number] ON LICENSE OF [facility] MEDICARE ADVANTAGE HMO Advance Directives * CPR (Attempt to Resuscitate) (Latest Code Status on File) Date Activated Date Inactivated Comments 11/07/2024 2:44 PM 11/11/2024 1:37 PM Question Answer Comments Code Status (Patient has no pulse and is not breathing): CPR (Attempt to Resuscitate) Medical Interventions (Patie nt has pulse or is breathing): Full Support Care Teams Solid Waste Collection Worker Relationship Specialty Start Date End Date Provider, No Known [facility] [place] [address] PCP - General 11/07/24
--- OUTSIDE RECORDS SUMMARY | 2024-11-20 09:47 | XMS_ITS | Encounter Summary ---
Author Organization [facility] Address [address] [place] [address] Care Team Providers Care Process Development Manager Name Role Phone Maged Sharma MD Primary Care Provider [phone] Encounter Details Date Type Department Care Team ([facility] Contact Info) Description 11/01/2024 Orders Only [place] [id number] [place] [phone] [address] Social History Tobacco Use Types Packs/Day Years Used Date Smoking Tobacco: Every Day Cigarettes 1 40.1 Started: 11/01/1984 Smokeless Tobacco: Never Alcohol Use [...] Description 01/24/2025 12:40 PM EST Office Visit [place] [id number] [place] [phone] Guillaume Reeves MD [address] [place] [phone] documented as of this encounter Visit Diagnoses Not on filedocumented in this encounter Additional Health Concerns Assessment Noted Time A Body Mass Index follow-up plan has been documented for the patient 11/01/2024 1:08 PM EDT documented as of this encounter Care Teams Process Development Manager Relationship Specialty Start Date End Date Maged Sharma MD [address] [place] [address] PCP - General 07/31/20 documented as of this encounter
--- OUTSIDE RECORDS SUMMARY | 2024-11-20 09:47 | XMS_ITS | Encounter Summary ---
Author Organization [facility] Address [address] [place] [address] Care Team Providers Care Maintenance Truck Driver Name Role Phone Maged Sharma MD Primary Care Provider [phone] Encounter Details Date Type Department Care Team [...] Description 01/24/2025 12:40 PM EST Office Visit [facility] [address] [place] [phone] Guillaume Reeves MD [address] [place] [phone] documented as of this encounter Visit Diagnoses Not on filedocumented in this encounter Additional Health Concerns Assessment Noted Time A Body Mass Index follow-up plan has been documented for the patient 11/01/2024 1:08 PM EDT documented as of this encounter Care Teams Maintenance Truck Driver Relationship Specialty Start Date End Date Maged Sharma MD [address] [place] [address] PCP - General 07/31/20 documented as of this encounter
--- OUTSIDE RECORDS SUMMARY | 2024-11-20 09:47 | XMS_ITS | Encounter Summary ---
[facility] Address [address] [place] [address] Care Team Providers Care Vulcan Crewmember Name Role Phone Provider, No Known Primary Care Provider Unavail able Encounter Details Date Type Department Care Team (Late st Contact Info) Description 11/11/2024 Readmission Management [facility] [address] [place] [phone] Marsha Bullock, RN Social History Tobacco [...] or training? Not on file Preferred Language Wallisian 11/08/2024 Sex and Gender Information Value Date Recorded Sex Assigned at Not on file Legal Sex Male 11:35 AM EDT Gender Identity Not on file Sexual Orientation Not on file documented as of this encounter Miscellaneous Notes * Outreach Note - Marsha Bullock, RN - 11/11/2024 6:29 PM EDT Prep Survey Flowsheet Row Responses [facility] patient discharged from? [place] Is LACE score less than 10 ? No Eligibility Readm Mgmt Discharge diagnosis Syncope Does the patient have one of the following disease processes/diagnoses(primary or secondary)? Other Prep survey completed? Yes Marsha Masters - Registered Nurse documented in this encounter Plan of Treatment Not on file documented as of this encounter Visit Diagnoses Not on filedocumented in this encounter Care Teams Vulcan Crewmember Relationship Specialty Start Date End Date Provider, [place] [address] PCP - General 11/07/24 documented as of this encounter
[2024-11-20 12:32] LABS: Anion Gap 13.4 mEq/L (5-15); Blood Urea Nitrogen 18 mg/dl (9-20); Calcium 9.6 mg/dl (8.4-10.2); Carbon Dioxide 27 mmol/L (22.0-30.0); Chloride 104 mmol/L (98-107); Creatinine,Serum 1.20 mg/dl (0.66-1.25); Estimated Glomerular Filt Rate 62 ml/min (>60); GFR (African American) 76 ML/MIN (>60); Glucose 128 mg/dl (74-100); Potassium 4.4 mmoL/L (3.5-5.1); Sodium 140 mmol/L (136-145)
== END 2024-11-20 23:59 | disposition home or self-care (01) ==
LOC: LAB 09:28
PROVIDERS: PCP Physician Assistant; Visit Provider Nurse Practitioner Family
DX: I25.10 Atherosclerotic heart disease of native coronary artery without angina pectoris (principal); R55 Syncope and collapse; E78.2 Mixed hyperlipidemia; I10 Essential (primary) hypertension
CPT/HCPCS: 36415; 80048; 93270; 93272

== ENCOUNTER 2024-12-17 13:08 | Outpatient (CLI) | payer MEDICARE, SELFPAY ==
--- OUTSIDE RECORDS SUMMARY | 2017-08-03 04:50 | XMS_ITS | Continuity of Care Document ---
Author Organization [facility] Address [address] [address] Phone Care Team Providers Care Special Agent Fbi Name Role Phone Ronald NANCE Sal ROSADO [...] Copied on Encounter Office/outpa tient visit,anthony, jaison [facility], [address] [place] [address], [id number], tel:[phone] [facility] Dyspnea (chief complaint)Ed dean [...] unspecified heart failure type 8 Ronald Huang. [address] [place] [address], [id number], . tel:[phone] Referring Provider: Sal Cardenas, [address] [place] [address], [id number]. tel:[phone] Family History Family Member Type Diagnosis Age At Onset Mother Problem (finding) coronary arterioscleros is Payers Payer name Insurance type Covered alliance party ID Authorwadea carolineabhi(s) Lonnie KRISTIAN [id number] Social History Type Description Quantity Date Captured [...] Of Treatment Date Type Action Status Goal Depression screening. Due on due Goal Colorectal cance r screen, stool DNA QuARTS with hemoglobin PETRONA. Due on due Goal Lipid panel. Due on due Goal Flu Vaccine (18 to 64). Due on due Goal Sigmoidoscopy. Due on due Goal Td vaccine. Due on 18 due Goal Tdap. Due on due Goal FOBT. Due on due Goal Colonoscopy. Due on due Future Order: Lab Order [...]
--- OUTSIDE RECORDS SUMMARY | 2024-04-18 07:00 | XMS_ITS ---
Author Organization [facility]-[place] Address [address] [place] [phone] Care Team Providers Care Telecommunicator Supervisor Name Role Phone Todd Alvarado Primary Care Provider [phone] Sera Allen Unavailable [phone] Allergies Allergen (clinical drug ingredient) Drug/Non Drug [...] employed in healthcare? No Is patient an [facility] [facility] employee? N Is patient currently hospitalized? [...] daily; Duration: 90 days Active Droplet Pen [place] 32G X 4 MM USE DIRECTED; Duration: 90 Active Furosemide 40 MG 1/2 tab orally once a day Active Breztri Aerosphere 160-9-4.8 MCG/ACT 2 puffs Inhalation Twice a day Active Pen [place] 32G X 4 MM as directed 09/09/2022 [...] Orally Once a day Active Vital Signs Weight 262.4 lbs 04/18/2024 Blood pressure systolic 130 mm Hg 04/18/19 25 Blood pressure diastolic 74 mm Hg 025 Heart Rate 113 /min 04/18/2024 Height 70 in 04/18/2024 BMI 37.65 kg/m2 04/18/2024 Encounters Encounter Location Date Provider Diagnosis [facility] [address] [place] [phone] 04/18/2024 Sera Allen Acute URI J06.9 and [...] rt test results, Reason: Provider Name:Sera menezes, 02/21/2025 09:15:00 AM, [address] [facility], [address], [place], [phone], Provider Name:Sera menezes, 02/28/2025 09:00:00 AM, [address] [facility], [address], [place], [phone], Progress Notes * Alona BASSETT:[birth year] (59 yo M)Acc No.[id number]:04/18/2024 Progress Notes Patient: Milton ATKINS Provider: MARIANNA Starr :1965 A ge:58 Y S ex:Male Date:04/18/2024 Address:[address] [place], [place] Pcp:Todd Alvarado Subjective: * Chief Complaints: * [...] orally once a day , Taking Pen [place] 32G X 4 MM Miscellaneous as directed , Taking Metoprolol Succinate ER 50 MG Tablet Extended Release 24 Hour 1/2 tab orally once a day , Taking Farxiga 10 MG Tablet 1 tab(s) orally once a day , Taking Omeprazole 40 MG Capsule Delayed Release 1 cap(s) Orally once daily , Taking Droplet Pen [place] 32G X 4 MM Miscellaneous USE DIRECTED [...] * Procedure Codes: 9 4760 [place], [address] CAPILLARY BLOOD DRAW, 22052 CBC WITH AUTO DIFF, 19965 COVID TEST IN HOUSE, Modifiers: QW * Follow Up: v ia phone to report test results * Images: Billing Information: * Visit Code: 66452 Office Visit, Est Pt., Level 3. * Procedure Codes: [address] [place]. [address] CAPILLARY BLOOD DRAW. 09348 CBC WITH AUTO DIFF. 67401 COVID TEST IN HOUSE. Modifiers: QW * Electronic signature of MARIANNA Benito on 12/17/2024 at 01:13 PM EDT Sign off status: Pending * Provider: MARIANNA Starr Date: 0 04/18/2024 Generated for Miguel love/Rodney/eTransmitting on: 0 12/17/2024 01:13 PM EDT History and Physical Notes * [...]
--- OUTSIDE RECORDS SUMMARY | 2024-08-28 11:45 | XMS_ITS ---
Author Organization [facility] Address [address] [place] [id number] Care Team Providers Care Manager Body Name Role Phone Todd Alvarado Primary Care Provider [phone] Sera Allen Unavailable [phone] Allergies Allergen (clinical drug ingredient) Drug/Non Drug [...] Interpretation:Normal Performing Lab: Notes/Report: Test performed by [facility] [address] [facility] , [address], [place] [address] Jez Martines MD, Counter Hand CLIA: [id number] Sodium 143 135-145 mmol/L Potassium 4.3 3.5-5.3 [...] 26 Performing Lab: Notes/Report: Test performed by [facility], [address] , [address], [place] [address] Jez Martines MD, Counter Hand CLIA: [id number] Cholesterol 94 <200 mg/dL Triglycerides 204 <150 [...] Interpretation:Normal Performing Lab: Notes/Report: Test performed by [facility] [address] [place], [place] [address] [place] , [place] [address] Jez Martines MD, Counter Hand CLIA: [id number] TSH reflex to FT4 1.62 0.43-5.25 mU/L P-Microalbumin/Creatinine, R andom Urine Sample Reviewed date:08/30/2024 12:58:29 PM Interpretation:Normal Performing Lab: Notes/Report: Test performed by [facility] [address] [place] [address] , [place] [address] Jez Martines MD, Counter Hand CLIA: [id number] Albumin/Creatinine Ratio, Urine 4 0-30 ug/m g Microalbumin, Urine, Random 0.9 Creatinine, Urine 251.0 [facility] Natriuretic Peptide Reviewed date:08/30/2024 12:58:29 PM Interpretation:Normal Performing Lab: Notes/Report: Test performed by [facility], [address] , [address], [place] [address] Jez Martines MD, Counter Hand CLIA: [id number] [facility] Natriuretic Peptide 43 <300 pg/mL Please [...] DAILY DIRECTED; Duration: 90 Active Droplet Pen [employer] 32G X 4 MM USE DIRECTED; Duration: [...] 1/2 orally once a day Active Pen [employer] 32G X 4 MM as directed 09/09/2022 [...] Status Risk Notes Problem Obese class II (815345095130331 ) BMI 37.0-37.9, adult (Z68.37) Active confirmed Problem Morbid obesity (disorder) (794564892) Morbid (severe) obesity due to excess calories (E66.01) Active confirmed Problem Chronic respiratory failure (82573712) Chronic respiratory failure, unspecified whether with hypoxia or hypercapnia (J96.10) Active confirmed Problem Hypertensive heart failure (94272232) Hypertensive heart disease with heart failure (I11.0) Active confirmed Problem Congestive heart failure (81735440) Congestive heart failure, unspecified (I50.9) Active confirmed Problem COPD - Chronic obstructive pulmonary disease (00091780) Chronic obstructive pulmonary disease, unspecified COPD type (J44.9) Active confirmed Vital Signs Weight 262.6 lbs 08/28/2024 Blood pressure systolic 150 mm Hg 08/29/19 25 Blood pressure diastolic 90 mm Hg 025 Heart Rate 87 /min 08/28/2024 Height 70 in 08/28/2024 BMI 37.68 kg/m2 08/28/2024 Encounters Encounter Location Date Provider Diagnosis [facility] [address] [place] [id number] 08/28/2024 Sera Allen Intermittent diarrhe a R19.7 [...] 02/21/2025 09:15:00 AM, [address], [address], [place], [phone], Provider Name:Sera Wall y, 02/28/2025 09:00:00 AM, [address], [address], [place], [id number], Progress Notes * Leigh BASSETTOB:[birth year] (59 yo M)Acc No.[id number]:08/28/2024 Progress Notes Patient: Milton ATKINS Provider: MARIANNA Starr :1965 A ge:58 Y S ex:Male Date:08/28/2024 Address:[address], [facility] Pcp:Todd Alvarado Subjective: * Chief Complaints: * [...] orally once a day , Taking Pen [employer] 32G X 4 MM Miscellaneous as directed , Taking Metoprolol Succinate ER 50 MG Tablet Extended Release 24 Hour 1/2 tab orally once a day , Taking Droplet [employer] 32G X 4 MM Miscellaneous USE DIRECTED [...] Allen 08/28/2024 0 4:11:16 PM EDT >room [facility] 4.?Essential hypertension?LAB: P-Comprehensive Metabolic Panel (CMP) [...] Natriuretic Peptide 43 <300 - pg/mL * [facility], IT support 08/30/2024 05:30:08 : This order was created by the Interface. Pankaj Yvonne 08/30/2024 12:58:17 PM EDT > See phone encounter * Procedure Codes: G 2211 Complex e/[place], [address] CBC WITH AUTO DIFF, 87398 GLYCATED HEMOGLOBIN TEST, Modifiers: QW , G8950 PREHTN/HTN BP DOC INDCD F/U DOC, G8752 MOST RECENT SYSTOLIC BP < 140MM HG, G8754 MOST RECENT DIASTOLIC BP < 90MM HG, 3044F HG A1C LEVEL LT 7.0% * Follow Up: v ia phone to report test results * Images: Billing Information: * Visit Code: 64887 Office Visit, Est Pt., Level 4. * Procedure Codes: G2211 Complex e/[place]. [address] CBC WITH AUTO DIFF. 80566 GLYCATED HEMOGLOBIN TEST. Modifiers: QW G8950 PREHTN/HTN BP DOC INDCD F/U DOC. G8752 MOST RECENT SYSTOLIC BP < 140MM HG. G8754 MOST RECENT DIASTOLIC BP < 90MM HG. 3044F HG A1C LEVEL LT 7.0%. * Electronic signature of MARIANNA Benito on 12/17/2024 at 01:13 PM EDT Sign off status: Pending * Provider: MARIANNA Starr Date: 0 08/28/2024 Generated for Printi ng/Faxing/eTransmitting on: 0 12/17/2024 01:13 PM EDT History [...]
--- OUTSIDE RECORDS SUMMARY | 2024-11-01 12:20 | XMS_ITS | Encounter Summary ---
Author Organization [facility] Address [address] [place] [address] Care Team Providers Care Bottom Scrubber Name Role Phone Maged Sharma MD Primary Care Provider [phone] Reason for Visit * Reason Comments Consult [...] or 3b CKD (CMS/HCC) Guillaume Reeves MD [address] [place] [phone] Phone: tel: fax: Referral ID Status Reason Start Date Expiration Date V isits Requested Visits Authorized [id number] Closed Specialty Services Required 05/23/2024 11/22/2025 1 1 Encounter Details Date Type Department Care Team (Late st Contact Info) Description 11/01/2024 12:20 PM EDT Office Visit [facility] [address] [place] [phone] Guillaume Reeves MD [address] [place] [phone] Severe obesity (BMI 35.0-39.9) with comorbidity (CMS/HCC) (Primary Dx); 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 Counseling Documentation: The patient was counseled regarding COUNSELING TOPICS: diagnostic results, prognosis, risks and benefit of treatment options, risk factor reductions, instructions for management, patient and family education, medication changes, diagnostic impressions, Heart healthy diet, regular physical activity and weight control, Avoidance of NSAIDs and other nephrotoxins, and half-way nature of condition. Education provided was verbal [...] Expiration Date: 12/06/2025 [facility] ??? Urinalysis with reflex microscopic (Culture NOT Included) Standing Status: Future Expected Date: 11/01/2025 Expiration Date: 12/06/2025 [facility] ??? Vitamin D 25 Hydroxy Standing Status: Future Expected Date: 11/01/2025 Expiration Date: 12/06/2025 [facility] ??? PTH Intact Total Standing Status: Future Expected Date: 11/01/2025 Expiration Date: 12/06/2025 [facility] ??? Albumin-creatinine ratio, urine, random Standing Status: Future Expected Date: 11/01/2025 Expiration Date: 12/06/2025 [facility] ??? Protein, Random, Urine with Creatinine Standing Status: Future Expected Date: 11/01/2025 Expiration Date: 12/06/2025 [facility] ??? Renal Function Panel, Plasma Standing Status: Future Expected Date: 11/01/2025 Expiration Date: 12/06/2025 Release to patient in 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 NECK SURGERY N/A Neck Surgery from [facility] ??? TOTAL KNEE ARTHROPLASTY Right Total Knee Replacement Right from [facility] ??? TOTAL KNEE ARTHROPLASTY Left Total Knee Replacement Left from [facility] [4] Family History Problem Relation Name Age [...] Description 01/24/2025 12:40 PM EST Office Visit [facility] [address] [place] [phone] Guillaume Reeves MD [address] [place] [phone] Scheduled Orders Name Type Priority Associated Diagnoses Orde r Schedule CBC W/O Differential Lab Routine Severe obesity (BMI 35.0-39.9) with comorbidity ([facility]) Type 2 diabetes mellitus with chronic kidney disease, without long-term current use of insulin, unspecified CKD stage ([facility]) Expected: 11/01/2025 (Approximate), Expires: 12/06/2025 Urinalysis with reflex microscopic (Culture NOT Included) Lab Routine Severe obesity (BMI 35.0-39.9) with comorbidity ([facility]) Type 2 diabetes mellitus with chronic kidney disease, without long-term current use of insulin, unspecified CKD stage ([facility]) Expected: 11/01/2025 (Approximate), Expires: 12/06/2025 Vitamin D 25 Hydroxy Lab Routine Severe obesity (BMI 35.0-39.9) with comorbidity ([facility]) Type 2 diabetes mellitus with chronic kidney disease, without long-term current use of insulin, unspecified CKD stage ([facility]) Expected: 11/01/2025 (Approximate), Expires: 12/06/2025 PTH Intact Total Lab Routine Severe obesity (BMI 35.0-39.9) with comorbidity ([facility]) Type 2 diabetes mellitus with chronic kidney disease, without long-term current use of insulin, unspecified CKD stage ([facility]) Expected: 11/01/2025 (Approximate), Expires: 12/06/2025 Albumin-creatinine ratio, urine, random Lab Routine Severe obesity (BMI 35.0-39.9) with comorbidity ([facility]) Type 2 diabetes mellitus with chronic kidney disease, without long-term current use of insulin, unspecified CKD stage ([facility]) Expected: 11/01/2025 (Approximate), Expires: 12/06/2025 Protein, Random, Urine with Creatinine Lab Routine Severe obesity (BMI 35.0-39.9) with comorbidity ([facility]) Type 2 diabetes mellitus with chronic kidney disease, without long-term current use of insulin, unspecified CKD stage ([facility]) Expected: 11/01/2025 (Approximate), Expires: 12/06/2025 Renal Function Panel, Plasma Lab Routine Severe obesity (BMI 35.0-39.9) with comorbidity ([facility]) Type 2 diabetes mellitus with chronic kidney disease, without long-term current use of insulin, unspecified CKD stage ([facility]) Expected: 11/01/2025 (Approximate), Expires: 12/06/2025 documented as of this encounter Visit Diagnoses Diagnosis Severe obesity (BMI 35.0-39.9) with comorbidity ([facility])- Primary 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, without long-term current use of insulin, unspecified CKD stage CKD stage 3a, GFR 45-59 ml/min ([facility]) Hypertensive chronic kidney disease with stage 1 through stage 4 chronic kidney disease, or unspecified chronic kidney disease Chronic kidney disease-mineral and bone disorder (CKD-MBD) documented in this encounter Additional Health Concerns Assessment Noted Time A Body Mass Index follow-up plan has been documented for the patient 11/01/2024 1:08 PM EDT documented as of this encounter Care Teams Bottom Scrubber Relationship Specialty Start Date End Date Maged Sharma MD [address] [place], [place] [address] [address] PCP - General 07/31/20 documented as of this encounter
--- OUTSIDE RECORDS SUMMARY | 2024-11-07 14:10 | XMS_ITS | Encounter Summary ---
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 Name Role Phone Provider, No Known Primary Care Provider Unavail able Reason for Referral * MRI/CAT/PET Scan (Routine) - Pending Review Specialty Diagnoses / Procedures Referred By Contac t Referred To Contact Procedures CT Outside Head Films, Radiant Outside Referral ID Status Reason Start Date Expiration Date V isits Requested Visits Authorized [id number] Pending Review 11/07/2024 02/06/2026 1 1 * MRI/CAT/PET Scan (Routine) - Pending Review Specialty Diagnoses / Procedures Referred By Contac t Referred To Contact Procedures CT Outside Neck Films, Radiant Outside Referral ID Status Reason Start Date Expiration Date V isits Requested Visits Authorized [id number] Pending Review 11/07/2024 02/06/2026 1 1 * Diagnostic Imaging (Routine) - Closed Specialty Diagnoses / Procedures Referred By Contac t Referred To Contact Procedures XR Outside Chest Films, Radiant Outside Referral ID Status Reason Start Date Expiration Date Visits Re quested Visits Authorized [id number] Closed 11/07/2024 02/06/2026 1 1 Reason for Visit * Auth/Cert Specialty Diagnoses / Procedures Referred By Contac t Referred To Contact Diagnoses Syncope (Non traumatic shock) Referral ID Status Reason Start Date Expiration Date Visits Re quested Visits Authorized [id number] 1 1 Encounter Details Date Type Department Care Team (Late st Contact Info) Description 11/07/2024 2:10 PM EDT - 11/11/2024 11:27 AM EDT Hospital Encounter [facility] [address] [place] [id number] Alexsander Branch MD [address] [place] [address] Israel Jimenez MD [address] [place] [address] Yonatan Lebron MD [address] [facility] [address] [place] [address] Discharge Disposition: Home or Self Care Social [...] or training? Not on file Preferred Language Omani 11/08/2024 Sex and Gender Information Value Date [...] from the original note were not included. [facility] Medicine Services DISCHARGE SUMMARY Patient Name: [...] to this hospital as a transfer from [facility] after having several syncopal events on the [...] had 2 additional episodes. 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 Respiratory Culture - Sputum, Cough [[id number]] Collected: 11/07/24 1731 Lab Status: Final result Specimen: Sputum from Cough Updated: 11/09/24 1230 Respiratory Culture Scant growth (1+) Normal respiratory candace. No S. aureus or Pseudomonas aeruginosa detected. Final report. Gram Stain Moderate (3+) WBCs per low power field Rare (1+) Epithelial cells per low power field No organisms seen Blood Culture - Blood, Arm, Left [[id number]] (Normal) Collected: 11/07/241728 Lab Status: Preliminary result Specimen: Blood from Arm, Left Updated: 11/10/24 1800 Blood Culture No growth at 3 days Blood Culture - Blood, Hand, Left [[id number]] (Normal) Collected: 11/07/24 172 Lab Status: Preliminary result Specimen: Blood from Hand, Left Updated: 11/10/24 1800 Blood Culture No growth at 3 days MRSA Screen, PCR (Inpatient) - Swab, Nares [[id number]] (Normal) Collected: 11/07/24 171 Lab Status: Final [...] MD 11/10/2024 9:32 AM EDT Workstation ID: [id number] CT Chest Without Contrast Diagnostic Result Date: [...] MD 11/09/2024 8:16 AM EDT Workstation ID: [id number] NM Lung Ventilation Perfusion Result Date: 11/09/2024 [...] MD 11/09/2024 12:02 AM EDT Workstation ID: [id number] Duplex Venous Lower Extremity - Bilateral CAR [...] MD 11/08/2024 9:45 AM EDT Workstation ID: [id number] XR Chest 1 View Result Date: 11/07/2024 [...] MD 11/07/2024 3:13 PM EDT Workstation ID: [id number] CT Outside Head Result Date: 11/07/2024 This [...] to Resuscitate); Full Support Ordered at: 11/07/24 3952 Code Status (Patient has no pulse and [...] minutes on this discharge activity which included: [id number] with the patient, reviewing the data in the system, coordination of the care with the nursing staff as well as consultants, documentation, and entering orders. documented in this encounter Discharge Instructions * Appointments* Viky Torrez - 11/11/2024 9:54 AM EDT Guillaume Reeves MD [address] [place] [phone] Phone: tel: Appointment: Dr Reeves's office will call you with appointment date and time. * Attachments The following attachments cannot be sent through Care Everywhere. * Amoxicillin; Clavulanic Acid Tablets (Omani) * Syncope Adult (Omani) documented in this encounter Medications at Time of Discharge lamoTRIgine (LaMICtal) 100 MG tablet Take 2 tablets by mouth 2 (Two) Times a Day. LORazepam (ATIVAN) 0.5 MG tablet Take 1 tablet by mouth Every 8 (Eight) Hours As Needed for Anxiety. gabapentin (NEURONTIN) 800 MG tablet Take 1 tablet by mouth 3 (Three) Times a Day. metFORMIN (GLUCOPHAGE) 500 MG tablet Take 1 [...] from the original note were not included. [facility] Medicine Services PROGRESS NOTE Patient Name: [...] MD 11/09/2024 8:16 AM EDT Workstation ID: [id number] NM Lung Ventilation Perfusion Result Date: 11/09/2024 [...] Maxwell MD 2:02 AM EDT Workstation ID: [id number] Duplex Venous Lower Extremity - Bilateral CAR [...] Grider MD 11/08/2024 9:45AM EDT Workstation ID: [id number] Results for orders placed during the hospital [...] to this hospital as a transfer from [facility] after having several syncopal events on the [...] had 2 additional episodes. Hewas taken to [facility] where he was noted to have high [...] reviewed Tobacco abuse - nicotine replacement - credit counselor cessation Expected Discharge Location and Transportation: home Expected Discharge Expected discharge date/ time has not been documented. VTE Prophylaxis: Pharmacologic VTE prophylaxis orders are present. AM-PAC 6 Clicks Score (PT): 24 (11/09/24 1954) CODE STATUS: Code Status and Medical Interventions: CPR (Attempt to Resuscitate); Full Support Ordered at: 11/07/24 1314 Code Status (Patient has no pulse and [...] bipolar disorder, prior neck surgery, transferred from [facility] after having several syncopal events. No preceding [...] portions of this note were completed with [employer] - a voice recognition program. * Israel [...] bipolar disorder, prior neck surgery, transferred from [facility] after having several syncopal events. No preceding [...] portions of this note were completed with [employer] - a voice recognition program. documented in [...] bipolar disorder, prior neck surgery, transferred from [facility] after having several syncopal events this morning. Patient was at home this morning and had previously been in his normal state of health. Patient had a sudden onset of syncopal event after becoming dizzy and then falling and possibly hitting his head on a desk. His was home and found him. He regained consciousness but had 2 additional episodes. He was taken to [facility]. While there he had a very high [...] bipolar disorder, prior neck surgery, transferred from [facility] after having several syncopal events. No preceding [...] portions of this note were completed with [employer] - a voice recognition program. documented in [...] Goal Outcome Evaluation: [facility] Pt receiving IV abx as ordered. [...] 6 L [place] after coming back from [place] and CT, hiflo ordered -lactic 1.7, respiratory [...] no change Outcome Evaluation: Pt arrived from [facility] on 0.02 of levophed after experiencing mutliple episodes of syncope at home. CT head done at outside [facility]. Levophed on hold shortly after arrival. Blood sugar 50 on arrival. 240 ml OJ given, pt BS remained 51. After 2 more OJs pt came up to 73. Back down to 50s after a couple house. Pt ate 100% dinner tray and d50 given. Last FSBG 140s. d5pzdbeuct on hold for now. Pt alert and [...] 11/08/2024 11:17 AM EDT Discharge Planning Assessment [facility] Patient Name: Mliton Bassett Today's Date: 11/08/2024 Admit Date: 11/07/2024 Plan: Home Discharge Needs Assessment Row Name 11/08/24 1110 Living Environment People in Home spouse Current Living Arrangements home Primary Care Provided by self Provides Primary Care For no one Family Caregiver if Needed spouse Family Caregiver Names Laura Bassett (Spouse) [phone] Quality of Family Relationships supportive Able to [...] bedside. He lives with his Spouse in [facility]. He is independent with ADL's and uses a BP cuff, nebulizer, POX, and 2L Oxygen through [facility] in [place]. He does not use home health services. His preferred Pharmacy is [facility] in [place]. His PCP is Sera Allen and he has [employer] Medicare insurance. Discharge plan is home. CM will continue to follow for discharge needs. Final Discharge Disposition Code 01 - home or self-care Continued Care and Services - Admitted Since 11/07/2024 No active coordination exists. 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
[address] [place] [address], * (ABNORMAL) CBC (No Diff) (11/11/2024 5:14 AM EDT) WBC 7.92 3.40 - 10.80 10*3/mm3 11/11/2024 5:48 AM EDT [facility] RBC 4.69 4.14 - 5.80 10*6/mm3 11/11/2024 5:48 AM EDT [facility] Hemoglobin 13.4 13.0 - 17.7 g/dL 11/11/2024 5:48 AM EDT [facility] Hematocrit 42.9 37.5 - 51.0 % 11/11/2024 5:48 AM EDT [facility] MCV 91.5 79.0 - 97.0 fL 11/11/2024 5:48 AM EDT [facility] MCH 28.6 26.6 - 33.0 pg 11/11/2024 5:48 AM EDT [facility] MCHC 31.2(L) 31.5 - 35.7 g/dL 11/11/2024 5:48 AM EDT [facility] RDW 14.9 12.3 - 15.4 % 11/11/2024 5:48 AM EDT [facility] RDW-SD 50.1 37.0 - 54.0 fl 11/11/2024 5:48 AM EDT [facility] MPV 11.7 6.0 - 12.0 fL 11/11/2024 5:48 AM EDT [facility] Platelets 111(L) 140 - 450 10*3/mm3 11/11/2024 5:48 AM EDT [facility] Blood Venipuncture / Unknown 11/11/2024 5:14 AM EDT 11/11/2024 5:36 AM EDT us Israel Jimenez MD LAB BLOOD ORDERABLES Final R esult [facility]
[address] [place] [address], * (ABNORMAL) Comprehensive Metabolic Panel (11/11/2024 5:14 AM EDT) Glucose 102(H) 65 - 99 mg/dL 11/11/2024 6:03 AM EDT [facility] BUN 19.4 6.0 - 20.0 mg/dL 11/11/2024 6:03 AM EDT [facility] Creatinine 1.38(H) 0.76 - 1.27 mg/dL 11/11/2024 6:03 AM EDT [facility] Sodium 142 136 - 145 mmol/L 11/11/2024 6:03 AM EDT [facility] Potassium 4.1 3.5 - 5.2 mmol/L 11/11/2024 6:03 AM [facility] Comment:Slight hemolysis det ected by analyzer. Result may be falsely elevated. Chloride 104 98 - 107 mmol/L 11/11/2024 6:03 AM [facility] CO2 28.0 22.0 - 29.0 mmol/L 11/11/2024 6:03 AM [facility] Calcium 8.7 8.6 - 10.5 mg/dL 11/11/2024 6:03 AM [facility] Total Protein 6.0 6.0 - 8.5 g/dL 11/11/2024 6:03 AM [facility] Albumin 3.5 3.5 - 5.2 g/dL 11/11/2024 6:03 AM [facility] ALT (SGPT) 41 1 - 41 U/L 11/11/2024 6:03 AM [facility] AST (SGOT) 35 1 - 40 U/L 11/11/2024 6:03 AM [facility] Alkaline Phosphatase 42 39 - 117 U/L 11/11/2024 6:03 AM [facility] Total Bilirubin 0.3 0.0 - 1.2 mg/dL 11/11/2024 6:03 AM [facility] Globulin 2.5 gm/dL 11/11/2024 6:03 AM [facility] Comment:Calculated Result A/G Ratio 1.4 g/dL 11/11/2024 6:03 AM [facility] BUN/Creatinine Ratio 14.1 7.0 - 25.0 11/11/2024 6:03 AM [facility] Anion Gap 10.0 5.0 - 15.0 mmol/L 11/11/2024 6:03 AM [facility] eGFR 59.6(L) >60.0 mL/min/1.7 3 11/11/2024 6:03 AM [facility] Blood Venipuncture / Unknown 11/11/2024 5:14 AM EDT 11/11/2024 5:36 AM EDT Narrative [facility] - 11/11/2024 6:03 AM [...] ORDERABLES Final R esult Performing Organization Address [facility] Co de Phone Number [facility]
[address] [place] [address], * (ABNORMAL) POC Glucose Once (11/10/2024 8:13 PM EDT) [facility] Signature Glucose 166(H) 70 - 130 mg/dL 11/10/2024 8:16 PM EDT [facility] Comment:Serial Number: [id number]: [id number] Blood 11/10/2024 8:13 PM EDT 11/10/2024 8:16 PM EDT Yonatan Lebron MD POINT OF CARE TEST ORDERABLES Final Result Performing Organization Address [facility] Co de Phone Number [facility]
[address] [place] [address], [place] [phone] * Telemetry Scan (11/10/2024 7:42 PM EDT) [facility] Onbase ECG ORDERABLES Final Result * (ABNORMAL) POC Glucose Once (11/10/2024 4:54 PM EDT) Glucose 233(H) 70 - 130 mg/dL 11/10/2024 4:57 PM EDT [facility] Comment:Serial Number: [id number]: [id number] Blood 11/10/2024 4:54 PM EDT 11/10/2024 4:57 PM EDT Yonatan Lebron MD POINT OF CARE TEST ORDERABLES Final Result Performing Organization Address [facility] de Phone Number [facility]
[address] [place] [address], * (ABNORMAL) POC Glucose 4x Daily Before Meals & at Bedtime (11/10/2024 11:41 AM EDT) Glucose 174(H) 70 - 130 mg/dL 11/10/2024 11:51 AM EDT [facility] Comment:Serial Number: [id number]: [id number] Blood 11/10/2024 11:4 1 AM EDT 11/10/2024 11:51 AM EDT Israel Jimenez MD POINT OF CARE TEST ORDERABLE S Final Result Performing Organization Address [facility] de Phone Number [facility]
[address] [place] [address], * (ABNORMAL) POC Glucose 4x Daily Before Meals & at Bedtime (11/10/2024 7:49 AM EDT) Glucose 133(H) 70 - 130 mg/dL 11/10/2024 7:52 AM EDT [facility] Comment:Serial Number: [id number]: [id number] Nova Comment 1 Notified Patients RN 11/10/2024 7:52 AM EDT [facility] Blood 11/10/2024 7:49 AM EDT 11/10/2024 7:52 AM EDT us Israel Jimenez MD POINT OF CARE TEST ORDERABLE S Final Result [facility]
[address] [place] [address], [place] [phone] * (ABNORMAL) CBC (No Diff) (11/10/2024 4:13 AM EDT) WBC 9.12 3.40 - 10.80 10*3/mm3 11/10/2024 4:59 AM EDT [facility] RBC 4.72 4.14 - 5.80 10*6/mm3 11/10/2024 4:59 AM EDT [facility] Hemoglobin 13.4 13.0 - 17.7 g/dL 11/10/2024 4:59 AM EDT [facility] Hematocrit 42.4 37.5 - 51.0 % 11/10/2024 4:59 AM EDT [facility] MCV 89.8 79.0 - 97.0 fL 11/10/2024 4:59 AM EDT [facility] MCH 28.4 26.6 - 33.0 pg 11/10/2024 4:59 AM EDT [facility] MCHC 31.6 31.5 - 35.7 g/dL 11/10/2024 4:59 AM EDT [facility] RDW 15.0 12.3 - 15.4 % 11/10/2024 4:59 AM EDT [facility] RDW-SD 49.1 37.0 - 54.0 fl 11/10/2024 4:59 AM EDT [facility] MPV 11.9 6.0 - 12.0 fL 11/10/2024 4:59 AM EDT [facility] Platelets 109(L) 140 - 450 10*3/mm3 11/10/2024 4:59 AM EDT [facility] Blood Venipuncture / Unknown 11/10/2024 4:13 AM EDT 11/10/2024 4:52 AM EDT us Israel Jimenez MD LAB BLOOD ORDERABLES Final R esult [facility]
[address] [place] [address], * (ABNORMAL) Comprehensive Metabolic Panel (11/10/2024 4:13 AM EDT) Glucose 65 65 - 99 mg/dL 11/10/2024 5:15 AM EDT [facility] BUN 19.7 6.0 - 20.0 mg/dL 11/10/2024 5:15 AM EDT [facility] Creatinine 1.44(H) 0.76 - 1.27 mg/dL 11/10/2024 5:15 AM EDT [facility] Sodium 141 136 - 145 mmol/L 11/10/2024 5:15 AM EDT [facility] Potassium 4.3 3.5 - 5.2 mmol/L 11/10/2024 5:15 AM EDT [facility] Chloride 103 98 - 107 mmol/L 11/10/2024 5:15 AM EDT [facility] CO2 30.0(H) 22.0 - 29.0 mmol/L 11/10/2024 5:15 AM EDT [facility] Calcium 9.2 8.6 - 10.5 mg/dL 11/10/2024 5:15 AM EDT [facility] Total Protein 6.5 6.0 - 8.5 g/dL 11/10/2024 5:15 AM EDT [facility] Albumin 3.7 3.5 - 5.2 g/dL 11/10/2024 5:15 AM EDT [facility] ALT (SGPT) 24 1 - 41 U/L 11/10/2024 5:15 AM EDT [facility] AST (SGOT) 23 1 - 40 U/L 11/10/2024 5:15 AM EDT [facility] Alkaline Phosphatase 39 39 - 117 U/L 11/10/2024 5:15 AM EDT [facility] Total Bilirubin 0.3 0.0 - 1.2 mg/dL 11/10/2024 5:15 AM EDT [facility] Globulin 2.8 gm/dL 11/10/2024 5:15 AM EDT [facility] Comment:Calculated Result A/G Ratio 1.3 g/dL 11/10/2024 5:15 AM EDT [facility] BUN/Creatinine Ratio 13.7 7.0 - 25.0 11/10/2024 5:15 AM EDT [facility] Anion Gap 8.0 5.0 - 15.0 mmol/L 11/10/2024 5:15 AM EDT [facility] eGFR 56.7(L) >60.0 mL/min/1.7 3 11/10/2024 5:15 AM EDT [facility] Blood Venipuncture / Unknown 11/10/2024 4:13 AM EDT 11/10/2024 4:49 AM EDT [facility] - 11/10/2024 5:15 AM [...] MD LAB BLOOD ORDERABLES Final R esult [facility]
[address] [place] [address], * XR Chest 1 View (11/10/2024 3:00 AM EDT) Anatomical Region Laterality Modality Body N/A Radiographic Apurva ging 11/10/2024 9:30 AM EDT Impressions 11/10/2024 9:32 AM EDT Impression: 1.Bibasilar densities which could relate to atelectasis. A left pleural effusion not excluded. 2.Cardiomegaly. Some vascular congestion not excluded. Electronically Signed: Elliott Lopez MD 11/10/2024 9:32 AM EDT Workstation ID: [id number] Narrative 11/10/2024 9:32 AM EDT XR CHEST [...] MD 11/10/2024 9:32 AM EDT Workstation ID: [id number] Israel Jimenez MD IMG DIAGNOSTIC IMAGING ORDER NAYE Final Result * (ABNORMAL) POC Glucose Once (11/09/2024 7:37 PM EDT) Glucose 171(H) 70 - 130 mg/dL 11/09/2024 7:38 PM EDT [facility] Comment:Serial Number: [id number]: [id number] Blood 11/09/2024 7:37 PM EDT 11/09/2024 7:38 PM EDT us Israel Jimenez MD POINT OF CARE TEST ORDERABLE S Final Result Performing Organization Address City/[facility] Co de Phone Number [facility]
[address] [place] [address], * (ABNORMAL) POC Glucose Once (11/09/2024 4:45 PM EDT) Glucose 162(H) 70 - 130 mg/dL 11/09/2024 4:49 PM EDT [facility] Comment:Serial Number: [id number]: [id number] Blood 11/09/2024 4:45 PM EDT 11/09/2024 4:49 PM EDT us Israel Jimenez MD POINT OF CARE TEST ORDERABLE S Final Result Performing Organization Address [facility] de Phone Number [facility]
[address] [place] [address], * (ABNORMAL) POC Glucose 4x Daily Before Meals & at Bedtime (11/09/2024 12:16 PM EDT) Glucose 173(H) 70 - 130 mg/dL 11/09/2024 12:18 PM EDT [facility] Comment:Serial Number: [id number]: [id number] Blood 11/09/2024 12:1 6 PM EDT 11/09/2024 12:18 PM EDT us Israel Jimenez MD POINT OF CARE TEST ORDERABLE S Final Result Performing Organization Address City/[facility] de Phone Number [facility]
[address] [place] [address], * Telemetry Scan (11/09/2024 7:31 AM EDT) [facility] Onbase ECG ORDERABLES Final Result * (ABNORMAL) POC Glucose 4x Daily Before Meals & at Bedtime (11/09/2024 7:21 AM EDT) Glucose 156(H) 70 - 130 mg/dL 11/09/2024 7:23 AM EDT [facility] Comment:Serial Number: [id number]: [id number] Blood 11/09/2024 7:21 AM EDT 11/09/2024 7:23 AM EDT Israel Jimenez MD POINT OF CARE TEST ORDERABLE S Final Result [facility]
[address] [place] [address], * (ABNORMAL) Phosphorus (11/09/2024 3:21 AM EDT) Phosphorus 2.0(L) 2.5 - 4.5 mg/dL 11/09/2024 5:17 AM EDT [facility] Blood Venipuncture / Unknown 11/09/2024 3:21 AM EDT 11/09/2024 4:14 AM EDT Israel Jiemnez MD LAB BLOOD ORDERABLES Final R esult [facility]
[address] [place] [address], * Magnesium (11/09/2024 3:21 AM EDT) Magnesium 2.0 1.6 - 2.6 mg/dL 11/09/2024 5:07 AM EDT [facility] Blood Venipuncture / Unknown 11/09/2024 3:21 AM EDT 11/09/2024 4:14 AM EDT Israel Jimenez MD LAB BLOOD ORDERABLES Final R esult [facility]
[address] [place] [address], * (ABNORMAL) CBC (No Diff) (11/09/2024 3:21 AM EDT) WBC 13.18(H) 3.40 - 10.80 10*3/mm3 11/09/2024 4:12 AM EDT [facility] RBC 4.90 4.14 - 5.80 10*6/mm3 11/09/2024 4:12 AM EDT [facility] Hemoglobin 13.7 13.0 - 17.7 g/dL 11/09/2024 4:12 AM EDT [facility] Hematocrit 44.1 37.5 - 51.0 % 11/09/2024 4:12 AM EDT [facility] MCV 90.0 79.0 - 97.0 fL 11/09/2024 4:12 AM EDT [facility] MCH 28.0 26.6 - 33.0 pg 11/09/2024 4:12 AM EDT [facility] MCHC 31.1(L) 31.5 - 35.7 g/dL 11/09/2024 4:12 AM EDT [facility] RDW 15.1 12.3 - 15.4 % 11/09/2024 4:12 AM EDT [facility] RDW-SD 49.8 37.0 - 54.0 fl 11/09/2024 4:12 AM EDT [facility] MPV 12.0 6.0 - 12.0 fL 11/09/2024 4:12 AM EDT [facility] Platelets 117(L) 140 - 450 10*3/mm3 11/09/2024 4:12 AM EDT [facility] Blood Venipuncture / Unknown 11/09/2024 3:21 AM EDT 11/09/2024 4:09 AM EDT Israel Jimenez MD LAB BLOOD ORDERABLES Final R esult [facility]
[address] [place] [address], * (ABNORMAL) Comprehensive Metabolic Panel (11/09/2024 3:21 AM EDT) Glucose 134(H) 65 - 99 mg/dL 11/09/2024 5:07 AM EDT [facility] BUN 26.4(H) 6.0 - 20.0 mg/dL 11/09/2024 5:07 AM EDT [facility] Creatinine 1.73(H) 0.76 - 1.27 mg/dL 11/09/2024 5:07 AM EDT [facility] Sodium 134(L) 136 - 145 mmol/L 11/09/2024 5:07 AM EDT [facility] Potassium 4.8 3.5 - 5.2 mmol/L 11/09/2024 5:07 AM EDT [facility] Chloride 100 98 - 107 mmol/L 11/09/2024 5:07 AM EDT [facility] CO2 24.2 22.0 - 29.0 mmol/L 11/09/2024 5:07 AM EDT [facility] Calcium 9.2 8.6 - 10.5 mg/dL 11/09/2024 5:07 AM EDT [facility] Total Protein 6.6 6.0 - 8.5 g/dL 11/09/2024 5:07 AM EDT [facility] Albumin 3.7 3.5 - 5.2 g/dL 11/09/2024 5:07 AM EDT [facility] ALT (SGPT) 16 1 - 41 U/L 11/09/2024 5:07 AM EDT [facility] AST (SGOT) 15 1 - 40 U/L 11/09/2024 5:07 AM EDT [facility] Alkaline Phosphatase 42 39 - 117 U/L 11/09/2024 5:07 AM EDT [facility] Total Bilirubin 0.3 0.0 - 1.2 mg/dL 11/09/2024 5:07 AM EDT [facility] Globulin 2.9 gm/dL 11/09/2024 5:07 AM EDT [facility] Comment:Calculated Result A/G Ratio 1.3 g/dL 11/09/2024 5:07 AM EDT [facility] BUN/Creatinine Ratio 15.3 7.0 - 25.0 11/09/2024 5:07 AM EDT [facility] Anion Gap 9.8 5.0 - 15.0 mmol/L 11/09/2024 5:07 AM EDT [facility] eGFR 45.5(L) >60.0 mL/min/1.7 3 11/09/2024 5:07 AM T [facility] Blood Venipuncture / Unknown 11/09/2024 3:21 AM EDT 11/09/2024 4:14 AM EDT [facility] - 11/09/2024 5:07 AM [...] MD LAB BLOOD ORDERABLES Final R esult [facility]
[address] [place] [address], [place] [phone] * (ABNORMAL) POC Glucose Once (11/08/2024 7:55 PM EDT) Pathologist [facility] Glucose 174(H) 70 - 130 mg/dL 11/08/2024 7:57 PM EDT [facility] Comment:Serial Number: [id number] Blood 11/08/2024 7:55 PM EDT 11/08/2024 7:57 PM EDT Israel Jimenez MD POINT OF CARE TEST ORDERABLE S Final Result [facility]
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 Swab in UTM/VTM, 2 HR TAT - Swab, Nasopharynx (11/08/2024 6:31 PM EDT) [facility] ADENOVIRUS, PCR Not Detected Not Detected BIOFIRE TORCH 11/08/2024 7:54 PM EDT [facility] Coronavirus 229E Not Detected Not Detected BIOFIRE TORCH 11/08/2024 7:54 PM EDT [facility] Coronavirus HKU1 Not Detected Not Detected BIOFIRE TORCH 11/08/2024 7:54 PM EDT [facility] Coronavirus NL63 Not Detected Not Detected BIOFIRE TORCH 11/08/2024 7:54 PM EDT [facility] Coronavirus OC43 Not Detected Not Detected BIOFIRE TORCH 11/08/2024 7:54 PM EDT [facility] COVID19 Not Detected Not Detected - Ref. Range BIOFIRE TORCH 11/08/2024 7:54 PM EDT [facility] Human Metapneumovirus Not Detected Not Detected BIOFIRE TORCH 11/08/2024 7:54 PM EDT [facility] Human Rhinovirus/Enterov irus Not Detected Not Detected BIOFIRE TOR 11/08/2024 7:54 PM EDT [facility] Influenza A PCR Not Detected Not Detected BIOFIRE TORCH 11/08/2024 7:54 PM EDT [facility] Influenza B PCR Not Detected Not Detected BIOFIRE TOR 11/08/2024 7:54 PM EDT [facility] Parainfluenza Virus 1 Not Detected Not Detected BIOFIRE TOR 11/08/2024 7:54 PM EDT [facility] Parainfluenza Virus 2 Not Detected Not Detected BIOFIRE TOR 11/08/2024 7:54 PM EDT [facility] Parainfluenza Virus 3 Not Detected Not Detected BIOFIRE TOR 11/08/2024 7:54 PM EDT [facility] Parainfluenza Virus 4 Not Detected Not Detected BIOFIRE TOR 11/08/2024 7:54 PM EDT [facility] RSV, PCR Not Detected Not Detected BIOFIRE TOR 11/08/2024 7:54 PM EDT [facility] Bordetella pertussis pcr Not Detected Not Detected BIOFIRE TOR 11/08/2024 7:54 PM EDT [facility] Bordetella parapertussis PCR Not Detected Not Detected BIOFIRE TOR 11/08/2024 7:54 PM EDT [facility] Chlamydophila pneumoniae PCR Not Detected Not Detected BIOFIRE TOR 11/08/2024 7:54 PM EDT [facility] Mycoplasma pneumo by PCR Not Detected Not Detected BIOFIRE TOR 11/08/2024 7:54 PM EDT [facility] Swab Nasopharyngeal structure / Unknown Collection / Unknown 11/08/2024 6:31 PM EDT 11/08/2024 7:03 PM EDT [facility] - 11/08/2024 7:54 PM [...] ORDE RABLES Final Result Performing Organization Address [facility] de Phone Number [facility]
[address] [place] [address], * Lactic Acid, Plasma (11/08/2024 6:28 PM EDT) Pathologist [facility] Lactate 1.7 0.5 - 2.0 mmol/L 11/08/2024 7:00 PM EDT [facility] Comment:Falsely depressed re sults may occur on samples drawn from patients receiving N-Acetylcysteine (NAC) or Metamizole. Blood Venipuncture / Unknown 11/08/2024 6:28 PM EDT 11/08/2024 6:41 PM EDT Dina Sanchez APRN LAB BLOOD ORDERABLES Final Result Performing Organization Address [facility] de Phone Number [facility]
[address] [place] [address], * (ABNORMAL) POC Glucose Once (11/08/2024 6:06 PM EDT) Glucose 146(H) 70 - 130 mg/dL 11/08/2024 6:08 PM EDT [facility] Comment:Serial Number: [id number]: [id number] Blood 11/08/2024 6:06 PM EDT 11/08/2024 6:08 PM EDT Israel Jimenez MD POINT OF CARE TEST ORDERABLE S Final Result Performing Organization Address [facility] de Phone Number [facility]
[address] [id number], * CT Chest Without Contrast Diagnostic (11/08/2024 5:55 PM EDT) Anatomical Region Laterality Modality Chest N/A Computed Tomogra phy 11/09/2024 8:12 AM EDT Impressions 11/09/2024 8:16 AM EDT Impression: 1.Bilateral lower lung airspace disease suggestive of multifocal pneumonia. 2.Trace bilateral pleural effusions. Electronically Signed: Rah Mayberry MD 11/09/2024 8:16 AM EDT Workstation ID: [id number] Narrative 11/09/2024 8:[address] CHEST [...] MD 11/09/2024 8:16 AM EDT Workstation ID: [id number] us Israel Jimenez MD IMG CT ORDERABLES Final Resu lt * NM Lung Ventilation Perfusion (11/08/2024 5:42 PM EDT) Anatomical Region Laterality Modality Chest N/A Nuclear Medicine 11/08/2024 11:5 5 PM EDT Impressions 11/09/2024 12:02 AM EDT Low probability for pulmonary embolism Electronically Signed: Acosta Maxwell MD 11/09/2024 12:02 AM EDT Workstation ID: [id number] Narrative 11/09/2024 12:02 AM EDT DATE OF [...] MD 11/09/2024 12:02 AM EDT Workstation ID: [id number] us Israel Jimenez MD IMG NM ORDERABLES [...] - 99 mg/dL 11/08/2024 4:56 PM EDT [facility] BUN 30.5(H) 6.0 - 20.0 mg/dL 11/08/2024 4:56 PM EDT [facility] Creatinine 2.36(H) 0.76 - 1.27 mg/dL 11/08/2024 4:56 PM EDT [facility] Sodium 135(L) 136 - 145 mmol/L 11/08/2024 4:56 PM EDT [facility] Potassium 4.7 3.5 - 5.2 mmol/L 11/08/2024 4:56 PM T [facility] Comment:Specimen hemolyzed. Result may be falsely elevated. Chloride 99 98 - 107 mmol/L 11/08/2024 4:56 PM EDT [facility] CO2 24.4 22.0 - 29.0 mmol/L 11/08/2024 4:56 PM EDT [facility] Calcium 9.2 8.6 - 10.5 mg/dL 11/08/2024 4:56 PM T [facility] BUN/Creatinine Ratio 12.9 7.0 - 25.0 11/08/2024 4:56 PM T [facility] Anion Gap 11.6 5.0 - 15.0 mmol/L 11/08/2024 4:56 PM [facility] eGFR 31.3(L) >60.0 mL/min/1.7 3 11/08/2024 4:56 PM T [facility] Blood Venipuncture / Unknown 11/08/2024 4:21 PM EDT 11/08/2024 4:28 PM EDT [facility] - 11/08/2024 4:56 PM [...] MD LAB BLOOD ORDERABLES Final R esult [facility]
[address] [place] [address], * Telemetry Scan (11/08/2024 2:29 PM EDT) [facility] Onbase ECG ORDERABLES Final Result * (ABNORMAL) POC Glucose Once (11/08/2024 11:52 AM EDT) Glucose 167(H) 70 - 130 mg/dL 11/08/2024 12:11 PM EDT [facility] Comment:Serial Number: [id number]: [id number] Blood 11/08/2024 11:5 2 AM EDT 11/08/2024 12:11 PM EDT Israel Jimenez MD POINT OF CARE TEST ORDERABLE S Final Result Performing Organization Address City/[facility]/ZIP Co de Phone Number [facility]
[address] [place] [address], * XR Chest 1 View (11/08/2024 9:34 AM EDT) Anatomical Region Laterality Modality Body N/A Radiographic Apurva ging 11/08/2024 9:42 AM EDT Impressions 11/08/2024 9:45 AM EDT Impression: New patchy airspace opacity in the left base may be due to atelectasis or infiltrate. Correlate clinically for pneumonia. Electronically Signed: Acosta Grider MD 11/08/2024 9:45 AM EDT Workstation ID: [id number] Narrative 11/08/2024 9:45 AM EDT XR CHEST [...] MD 11/08/2024 9:45 AM EDT Workstation ID: [id number] us Israel Jimenez MD IM DIAGNOSTIC IMAGING ORDER NAYE Final Result * (ABNORMAL) POC Glucose 4x Daily Before Meals & at Bedtime (11/08/2024 7:18 AM EDT) Glucose 232(H) 70 - 130 mg/dL 11/08/2024 7:21 AM EDT [facility] Comment:Serial Number: [id number]: [id number] Novchristina Comment 1 Notified Patients RN 11/08/2024 7:21 AM EDT [facility] Blood 11/08/2024 7:18 AM EDT 11/08/2024 7:21 AM EDT us Israel Jimenez MD POINT OF CARE TEST ORDERABLE S Final Result Performing Organization Address [facility] de Phone Number [facility]
[address] [place] [address], * Phosphorus (11/08/2024 3:10 AM EDT) Phosphorus 4.1 2.5 - 4.5 mg/dL 11/08/2024 3:57 AM EDT [facility] Blood Venipuncture / Unknown 11/08/2024 3:10 AM EDT 11/08/2024 3:32 AM EDT Dina Sanchez APRN LAB BLOOD ORDERABLES Final Result Performing Organization Address [facility] de Phone Number [facility]
[address] [place] [address], * Magnesium (11/08/2024 3:10 AM EDT) Magnesium 2.0 1.6 - 2.6 mg/dL 11/08/2024 3:57 AM EDT [facility] Blood Venipuncture / Unknown 11/08/2024 3:10 AM EDT 11/08/2024 3:32 AM EDT Dina Sanchez APRN LAB BLOOD ORDERABLES Final Result Performing Organization Address [facility] de Phone Number [facility]
[address] [place] [address], * (ABNORMAL) Comprehensive Metabolic Panel (11/08/2024 3:10 AM EDT) Glucose 137(H) 65 - 99 mg/dL 11/08/2024 3:57 AM EDT [facility] BUN 36.0(H) 6.0 - 20.0 mg/dL 11/08/2024 3:57 AM [facility] Creatinine 3.55(H) 0.76 - 1.27 mg/dL 11/08/2024 3:57 AM [facility] Sodium 134(L) 136 - 145 mmol/L 11/08/2024 3:57 AM [facility] Potassium 5.3(H) 3.5 - 5.2 mmol/L 11/08/2024 3:57 AM [facility] Chloride 97(L) 98 - 107 mmol/L 11/08/2024 3:57 AM [facility] CO2 24.4 22.0 - 29.0 mmol/L 11/08/2024 3:57 AM [facility] Calcium 9.0 8.6 - 10.5 mg/dL 11/08/2024 3:57 AM [facility] Total Protein 7.0 6.0 - 8.5 g/dL 11/08/2024 3:57 AM [facility] Albumin 4.0 3.5 - 5.2 g/dL 11/08/2024 3:57 AM [facility] ALT (SGPT) 22 1 - 41 U/L 11/08/2024 3:57 AM [facility] AST (SGOT) 20 1 - 40 U/L 11/08/2024 3:57 AM [facility] Alkaline Phosphatase 48 39 - 117 U/L 11/08/2024 3:57 AM [facility] Total Bilirubin 0.3 0.0 - 1.2 mg/dL 11/08/2024 3:57 AM [facility] Globulin 3.0 gm/dL 11/08/2024 3:57 AM [facility] Comment:Calculated Result A/G Ratio 1.3 g/dL 11/08/2024 3:57 AM [facility] BUN/Creatinine Ratio 10.1 7.0 - 25.0 11/08/2024 3:57 AM [facility] Anion Gap 12.6 5.0 - 15.0 mmol/L 11/08/2024 3:57 AM EDT [facility] eGFR 19.2(L) >60.0 mL/min/1.7 3 11/08/2024 3:57 AM EDT [facility] Blood Venipuncture / Unknown 11/08/2024 3:10 AM EDT 11/08/2024 3:32 AM EDT [facility] - 11/08/2024 3:57 AM [...] include race as a factor Dina Sanchez TIME STUDY CLERK LAB BLOOD ORDERABLES Final Result [facility]
[address] [place] [address], * (ABNORMAL) CBC Auto Differential (11/08/2024 3:10 AM EDT) WBC 15.14(H) 3.40 - 10.80 10*3/mm3 11/08/2024 3:39 AM EDT [facility] RBC 5.17 4.14 - 5.80 10*6/mm3 11/08/2024 3:39 AM EDT [facility] Hemoglobin 14.7 13.0 - 17.7 g/dL 11/08/2024 3:39 AM EDT [facility] Hematocrit 45.7 37.5 - 51.0 % 11/08/2024 3:39 AM EDT [facility] MCV 88.4 79.0 - 97.0 fL 11/08/2024 3:39 AM [facility] MCH 28.4 26.6 - 33.0 pg 11/08/2024 3:39 AM [facility] MCHC 32.2 31.5 - 35.7 g/dL 11/08/2024 3:39 AM [facility] RDW 15.1 12.3 - 15.4 % 11/08/2024 3:39 AM [facility] RDW-SD 49.2 37.0 - 54.0 fl 11/08/2024 3:39 AM [facility] MPV 11.4 6.0 - 12.0 fL 11/08/2024 3:39 AM [facility] Platelets 154 140 - 450 10*3/mm3 11/08/2024 3:39 AM [facility] Neutrophil % 87.0(H) 42.7 - 76.0 % 11/08/2024 3:39 AM [facility] Lymphocyte % 7.9(L) 19.6 - 45.3 % 11/08/2024 3:39 AM [facility] Monocyte % 4.3(L) 5.0 - 12.0 % 11/08/2024 3:39 AM [facility] Eosinophil % 0.1(L) 0.3 - 6.2 % 11/08/2024 3:39 AM [facility] Basophil % 0.1 0.0 - 1.5 % 11/08/2024 3:39 AM [facility] Immature Grans % 0.6(H) 0.0 - 0.5 % 11/08/2024 3:39 AM [facility] Neutrophils, Absolute 13.18(H) 1.70 - 7.00 10*3/mm3 11/08/2024 3:39 AM [facility] Lymphocytes, Absolute 1.20 0.70 - 3.10 10*3/mm3 11/08/2024 3:39 AM [facility] Monocytes, Absolute 0.65 0.10 - 0.90 10*3/mm3 11/08/2024 3:39 AM EDT [facility] Eosinophils, Absolute 0.01 0.00 - 0.40 10*3/mm3 11/08/2024 3:39 AM EDT [facility] Basophils, Absolute 0.01 0.00 - 0.20 10*3/mm3 11/08/2024 3:39 AM EDT [facility] Immature Grans, Absolute 0.09(H) 0.00 - 0.05 10*3/mm3 11/08/2024 3:39 AM EDT [facility] nRBC 0.0 0.0 - 0.2 /100 WBC 11/08/2024 3:39 AM EDT [facility] Blood Venipuncture / Unknown 11/08/2024 3:10 AM EDT 11/08/2024 3:35 AM EDT Dina Sanchez APRN LAB BLOOD ORDERABLES Final Result Performing Organization Address [facility]/ZIP Co de Phone Number [facility]
[address] [place] [address], [place] [phone] * (ABNORMAL) STAT Lactic Acid, Reflex (11/08/2024 12:04 AM EDT) [facility] Signature Lactate 2.6(HH) 0.5 - 2.0 mmol/L 11/08/2024 1:29 AM EDT [facility] Comment:Falsely depressed re sults may occur on samples drawn from patients receiving N-Acetylcysteine (NAC) or Metamizole. Blood Venipuncture / Unknown 11/08/2024 12:04 AM EDT 11/08/2024 1:01 AM EDT Dina Sanchez APRN LAB BLOOD ORDERABLES Final Result Performing Organization Address [facility]/ZIP Co de Phone Number [facility]
[address] [place] [address], [place] [phone] * (ABNORMAL) STAT Lactic Acid, Reflex (11/07/2024 8:52 PM EDT) Lactate 2.1(HH) 0.5 - 2.0 mmol/L 11/07/2024 9:51 PM EDT [facility] Comment:Falsely depressed re sults may occur on samples drawn from patients receiving N-Acetylcysteine (NAC) or Metamizole. Blood Venipuncture / Unknown 11/07/2024 8:52 PM EDT 11/07/2024 9:29 PM EDT Dina Sanchez APRN LAB BLOOD ORDERABLES Final Result Performing Organization Address [facility] Co de Phone Number [facility]
[address] [place] [address], * (ABNORMAL) POC Glucose Finger Q1H (11/07/2024 8:02 PM EDT) Glucose 175(H) 70 - 130 mg/dL 11/07/2024 8:07 PM EDT [facility] Comment:Serial Number: [id number]: [id number] Blood Finger structure / Unknown 11/07/2024 8:02 PM EDT 11/07/2024 8:07 PM EDT Dina Sanchez APRN POINT OF CARE TEST ORDERABL ES Final Result Performing Organization Address [facility]/ZIP Co de Phone Number [facility]
[address] [place] [address], [place] [phone] * (ABNORMAL) POC Glucose Finger Q1H (11/07/2024 7:09 PM EDT) Glucose 191(H) 70 - 130 mg/dL 11/07/2024 7:12 PM EDT [facility] Comment:Serial Number: [id number] Blood Finger structure / Unknown 11/07/2024 7:09 PM EDT 11/07/2024 7:12 PM EDT Dina Sanchez APRN POINT OF CARE TEST ORDERABL ES Final Result Performing Organization Address City/[facility]/ZIP Co de Phone Number [facility]
[address] [place] [address], [place] [phone] * Urea Nitrogen, Urine - Urine, Clean Catch (11/07/2024 6:12 PM EDT) Urea Nitrogen, Urine 119 mg/dL 11/08/2024 12:25 PM EDT [facility] Urine Urine specimen obtained by clean catch procedure / Unknown Collection / Unknown 11/07/2024 6:12 PM EDT 11/08/2024 7:51 AM EDT [facility] - 11/08/2024 12:25 PM EDT Reference intervals for random urine have not been established. Clinical usage is dependent upon physician's interpretation in combination with other laboratory tests. us Israel Jimenez MD URINE ORDERABLES Final Resul t Performing Organization Address City/[facility]/ZIP Co de Phone Number [facility]
[address] [place] [address], * Creatinine Urine Random (kidney function) GFR component - Urine, Clean Catch (11/07/2024 6:12 PM EDT) Creatinine, Urine 94.0 mg/dL 11/08/2024 12:25 PM EDT [facility] Urine Urine specimen obtained by clean catch procedure / Unknown Collection / Unknown 11/07/2024 6:12 PM EDT 11/08/2024 7:51 AM EDT [facility] - 11/08/2024 12:25 PM EDT Reference intervals for random urine have not been established. Clinical usage is dependent upon physician's interpretation in combination with other laboratory tests. us Israel Jimenez MD URINE ORDERABLES Final Resul t Performing Organization Address City/[facility]/ZIP Co de Phone Number [facility]
[address] [place] [address], [place] [phone] * Sodium, Urine, Random - Urine, Clean Catch (11/07/2024 6:12 PM EDT) Sodium, Urine 55 mmol/L 11/08/2024 8:11 AM EDT [facility] Urine Urine specimen obtained by clean catch procedure / Unknown Collection / Unknown 11/07/2024 6:12 PM EDT 11/08/2024 7:51 AM EDT [facility] - 11/08/2024 8:11 AM EDT Reference intervals for random urine have not been established. Clinical usage is dependent upon physician's interpretation in combination with other laboratory tests. Israel Jimenez MD URINE ORDERABLES Final Resul t Performing Organization Address [facility]/ZIP Co de Phone Number [facility]
[address] [place] [address], [place] [phone] * Urinalysis, Microscopic Only - Urine, Clean Catch (11/07/2024 6:12 PM EDT) Pathologist [facility] RBC, UA 0-2 None Seen, 0-2 /HPF 11/07/2024 6:43 PM EDT [facility] WBC, UA 0-2 None Seen, 0-2 /HPF 11/07/2024 6:43 PM EDT [facility] Comment:Urine culture not in dicated. Bacteria, UA None Seen None Seen /HPF 11/07/2024 6:43 PM EDT [facility] Squamous Epithelial Cells, UA 0-2 None Seen, 0-2 /HPF 11/07/2024 6:43 PM EDT [facility] Hyaline Casts, UA 13-20 None Seen /LPF 11/07/2024 6:43 PM EDT [facility] Methodology Automated Microscopy 11/07/2024 6:43 PM EDT [facility] Urine Urine specimen obtained by clean catch procedure / Unknown Collection / Unknown 11/07/2024 6:12 PM EDT 11/07/2024 6:33 PM EDT Dina Joseph Daniel TIME STUDY CLERK URINE ORDERABLES Final Resu lt Performing Organization Address [facility] Co de Phone Number [facility]
[address] [place] [address], * Fentanyl, Urine - Urine, Clean Catch (11/07/2024 6:12 PM EDT) Fentanyl, Urine Negative Negative 11/07/2024 7:00 PM EDT [facility] Urine Urine specimen obtained by clean catch procedure / Unknown Collection / Unknown 11/07/2024 6:12 PM EDT 11/07/2024 6:34 PM EDT Narrative [facility] - 11/07/2024 7:00 PM [...] ORDERABLES Final Resu lt Performing Organization Address [facility] Co de Phone Number [facility]
[address] [place] [address], [place] [phone] * (ABNORMAL) Urinalysis With Culture If Indicated - Urine, Clean Catch (11/07/2024 6:12 PM EDT) Color, UA Yellow Yellow, Straw 11/07/2024 6:43 PM EDT [facility] Appearance, UA Clear Clear 11/07/2024 6:43 PM EDT [facility] pH, UA <=5.0 5.0 - 8.0 11/07/2024 6:43 PM EDT [facility] Specific [place], UA 1.013 1.005 - 1.030 11/07/2024 6:43 PM EDT [facility] Glucose, UA Negative Negative 11/07/2024 6:43 PM EDT [facility] Ketones, UA Negative Negative 11/07/2024 6:43 PM EDT [facility] Bilirubin, UA Negative Negative 11/07/2024 6:43 PM EDT [facility] Blood, UA Negative Negative 11/07/2024 6:43 PM EDT [facility] Protein, UA Trace(A) Negative 11/07/2024 6:43 PM EDT [facility] Leuk Esterase, UA Trace(A) Negative 11/07/2024 6:43 PM EDT [facility] Nitrite, UA Negative Negative 11/07/2024 6:43 PM EDT [facility] Urobilinogen, UA 0.2 E.U./dL 0.2 - 1.0 E.U./dL 11/07/2024 6:43 PM EDT [facility] Urine Urine specimen obtained by clean catch procedure / Unknown Collection / Unknown 11/07/2024 6:12 PM EDT 11/07/2024 6:33 PM EDT [facility] - 11/07/2024 6:43 PM EDT In absence of clinical symptoms, the presence of pyuria, bacteria, and/or nitrites on the urinalysis result does not correlate with infection. us Dina Sanchez TIME STUDY CLERK URINE ORDERABLES Final Resu lt [facility]
[address] [place] [address], * (ABNORMAL) Metanephrines, Pheochromocytoma Evaluation - Urine, [...] LAB - 11/16/2024 9:10 AM EDT Test(s) [id number], Ur; [id number], Ur was developed and its performance characteristics determined by [facility]. It has not been cleared or approved by the Food and Drug Administration. Performed at: 01 - [address] [id number] [employer]: Fay Conway MD, Phone: [phone] Dina Sanchez TIME STUDY CLERK URINE ORDERABLES Final Resu lt Performing Organization Address [facility]/State/[facility] Co de Phone Number [facility] [address] [place] [address], * (ABNORMAL) Urine Drug Screen - Urine, Clean Catch (11/07/2024 6:12 PM EDT) THC, Screen, Urine Negative Negative 2024 6:47 PM EDT [facility] Phencyclidine (PCP), Urine Negative Negative 11/07/2024 6:47 PM EDT [facility] Cocaine Screen, Urine Negative Negative 11/07/2024 6:47 PM EDT [facility] Methamphetamine, Ur Negative Negative 11/07/2024 6:47 PM EDT [facility] Opiate Screen Negative Negative 11/07/2024 6:47 PM EDT [facility] Amphetamine Screen, Urine Negative Negative 11/07/2024 6:47 PM EDT [facility] Benzodiazepine Screen, Urine Positive(A) Negative 11/07/2024 6:47 PM EDT [facility] Tricyclic Antidepressants Screen Positive(A) Negative 11/07/2024 6:47 PM EDT [facility] Methadone Screen, Urine Negative Negative 11/07/2024 6:47 PM EDT [facility] Barbiturates Screen, Urine Negative Negative 11/07/2024 6:47 PM EDT [facility] Oxycodone Screen, Urine Negative Negative 11/07/2024 6:47 PM EDT [facility] Buprenorphine, Screen, Urine Negative Negative 11/07/2024 6:47 PM EDT [facility] Urine Urine specimen obtained by clean catch procedure / Unknown Collection / Unknown 11/07/2024 6:12 PM EDT 11/07/2024 6:34 PM EDT Narrative [facility] - 11/07/2024 6:47 PM [...] unconfirmed results are used. us Dina Sanchez TIME STUDY CLERK URINE ORDERABLES Final Resu lt [facility]
[address] [place] [address], * (ABNORMAL) POC Glucose Finger Q1H (11/07/2024 6:07 PM EDT) Glucose 154(H) 70 - 130 mg/dL 11/07/2024 6:10 PM EDT [facility] Comment:Serial Number: [id number]: [id number] Blood Finger structure / Unknown 11/07/2024 6:07 PM EDT 11/07/2024 6:10 PM EDT Dina Sanchez TIME STUDY CLERK POINT OF CARE TEST ORDERABL ES Final Result Performing Organization Address [facility] Co de Phone Number [facility]
[address] [place] [address], * (ABNORMAL) POC Glucose Finger Q1H (11/07/2024 5:37 PM EDT) Glucose 143(H) 70 - 130 mg/dL 11/07/2024 5:40 PM EDT [facility] Comment:Serial Number: [id number]: [id number] Blood Finger structure / Unknown 11/07/2024 5:37 PM EDT 11/07/2024 5:40 PM EDT Dina Sanchez APRN POINT OF CARE TEST ORDERABL ES Final Result Performing Organization Address [facility] Co de Phone Number [facility]
[address] [place] [address], [place] [phone] * Respiratory Culture - Sputum, Cough (11/07/2024 5:31 PM EDT) Respiratory Culture Scant growth (1+) Normal respiratory candace. No S. aureus or Pseudomonas aeruginosa detected. Final report. TRINI 11/09/2024 12:30 PM EDT [facility] Gram Stain Moderate (3+) WBCs per low power field 11/09/2024 12:30 PM EDT [facility] Gram Stain Rare (1+) Epithelial cells per low power field 11/09/2024 12:30 PM EDT [facility] Gram Stain No organisms seen 11/09/2024 12:30 PM EDT [facility] Sputum Coughed sputum specimen / Unknown Collection / Unknown 11/07/2024 5:31 PM EDT 11/07/2024 5:42 PM EDT Dina Sanchez APRN MICROBIOLOGY - GENERAL ORDE RABLES Final Result [facility]
[address] [place] [address], [place] [phone] [facility]
[address] [place] [address], [place] [phone] * (ABNORMAL) STAT Lactic Acid, Reflex (11/07/2024 5:30 PM EDT) Lactate 2.3(HH) 0.5 - 2.0 mmol/L 11/07/2024 6:25 PM EDT [facility] Comment:Falsely depressed re sults may occur on samples drawn from patients receiving N-Acetylcysteine (NAC) or Metamizole. Blood Venipuncture / Unknown 11/07/2024 5:30 PM EDT 11/07/2024 5:53 PM EDT Dina Sanchez APRN LAB BLOOD ORDERABLES Final Result [facility]
[address] [place] [address], [place] [phone] * Blood Culture - Blood, Hand, Left (11/07/2024 5:29 PM EDT) Blood Culture No growth at 5 days 11/12/2024 6:01 PM EDT [facility] Blood Structure of left hand / Unknown Venipuncture / Unknown 11/07/2024 5:29 PM EDT 11/07/2024 6:00 PM EDT Dina Sanchez APRN MICROBIOLOGY - GENERAL ORDE TOBY Final Result [facility]
[address] [place] [address], * Blood Culture - Blood, Arm, Left (11/07/2024 5:29 PM EDT) Pathologist [facility] Blood Culture No growth at 5 days 11/12/2024 6:01 PM EDT [facility] Blood Structure of left upper limb / Unknown Venipuncture / Unknown 11/07/2024 5:29 PM EDT 11/07/2024 5:59 PM EDT Dina Sanchez APRN MICROBIOLOGY - GENERAL ORDE TOBY Final Result Performing Organization Address City/[facility]/ZIP Co de Phone Number [facility]
[address] [place] [address], * (ABNORMAL) High Sensitivity Troponin T 1Hr (11/07/2024 5:29 PM EDT) [facility] HS Troponin T 22(H) <22 ng/L 11/07/2024 6:17 PM EDT [facility] Troponin T Numeric Delta 0 ng/L 11/07/2024 6:17 PM EDT [facility] Troponin T % Delta 0 Abnormal if >/= 20% 11/07/2024 6:17 PM EDT [facility] Blood Venipuncture / Unknown 11/07/2024 5:29 PM EDT 11/07/2024 5:52 PM EDT Narrative [facility] - 11/07/2024 6:17 PM [...] Sanchez APRN LAB BLOOD ORDERABLES Final Result [facility]
[address] [place] [address], * Aldosterone (11/07/2024 5:29 PM EDT) Aldosterone 5.0 0.0 - 30.0 ng/dL 11/13/2024 11:11 AM EDT [facility] Blood Venipuncture / Unknown 11/07/2024 5:29 PM EDT 11/07/2024 5:53 PM EDT Narrative [facility] - 11/13/2024 11:11 AM EDT Test(s) 749713-Uqmhqybsydb was developed and its performance characteristics determined by [facility]. It has not been cleared or approved by the Food and Drug Administration. Performed at: 01 - [address] [id number] Inspector Rough Castings: Fay Conway MD, Phone: [phone] Dina Sanchez APRN LAB BLOOD ORDERABLES Final Result Performing Organization Address City/[facility]/ZIP Co de Phone Number [facility] [address] [place] [address], [place] [phone] * (ABNORMAL) Renin Direct Assay (11/07/2024 5:29 PM EDT) Renin Activity 10.521(H) 0.167 - 5.380 ng/mL/hr 11/18/2024 12:07 AM EDT [facility] Blood Venipuncture / Unknown 11/07/2024 5:29 PM EDT 11/07/2024 5:53 PM EDT Narrative [facility] - 11/18/2024 12:07 AM EDT Test(s) [id number]-Zvfuv Activity, Plasma was developed and its performance characteristics determined by [facility]. It has not been cleared or approved by the Food and Drug Administration. Performed at: - [address] [id number] Inspector Rough Castings: Fay Conway MD, Phone: [phone] Dina Sanchez APRN LAB BLOOD ORDERABLES Final Result Performing Organization Address [facility] Co de Phone Number [facility] [address] [place] [address], [place] [phone] * Metanephrines, Frac. Free, Plasma (11/07/2024 5:29 PM EDT) Pathologist [facility] Normetanephrine 186.7 0.0 - 244.0 pg/mL 11/11/2024 9:08 PM EDT [facility] Metanephrine 34.1 0.0 - 88.0 pg/mL 11/11/2024 9:08 PM EDT [facility] Blood Venipuncture / Unknown 11/07/2024 5:29 PM EDT 11/07/2024 5:55 PM EDT Narrative [facility] - 11/11/2024 9:08 PM EDT Test(s) 197869-Wfivjlpkgkhlswu, Pl; 682996-Vojvxfiagrex, Pl was developed and its performance characteristics determined by [facility]. It has not been cleared or approved by the Food and Drug Administration. Performed at: - [address] [id number] Inspector Rough Castings: Fay Conway MD, Phone: [phone] Dina Sanchez APRN LAB BLOOD ORDERABLES Final Result Performing Organization Address [facility] de Phone Number [facility] [address] [place] [address], [place] [phone] * MRSA Screen, PCR (Inpatient) - Swab, Nares (11/07/2024 5:19 PM EDT) [facility] MRSA PCR Negative Negative CEPHEID GENEXPERT 11/07/2024 6:38 PM EDT [facility] Swab Structure of anterior naris / Unknown Collection / Unknown 11/07/2024 5:19 PM EDT 11/07/2024 5:26 PM EDT Narrative [facility] - 11/07/2024 6:38 PM EDT The negative predictive value of this diagnostic test is high and should only be used to consider de-escalating anti-MRSA therapy. A positive result may indicate colonization with MRSA and must be correlated clinically. MRSA Negative Dina Sanchez TIME STUDY CLERK MICROBIOLOGY - GENERAL ORDE RABLES Final Result Performing Organization Address City/[facility]/ZIP Co de Phone Number [facility]
[address] [place] [address], * (ABNORMAL) POC Glucose Once (11/07/2024 4:55 PM EDT) Pathologist [facility] Glucose 56(L) 70 - 130 mg/dL 11/07/2024 5:00 PM EDT [facility] Comment:Serial Number: [id number]: [id number] Blood 11/07/2024 4:55 PM EDT 11/07/2024 5:00 PM EDT Alexsander Branch MD POINT OF CARE TEST ORDERAB LES Final Result Performing Organization Address City/[facility]/ZIP Co de Phone Number [facility]
[address] [place] [address], * ECHO COMPLETE W/ DOPPLER AND COLOR FLOW (11/07/2024 3:51 PM EDT) Pathologist [facility] EF(MOD-bp) 54.9 % LVIDd 4.7 cm LVIDs [...] - 130 mg/dL 11/12/2024 7:52 AM EDT [facility] Comment:Serial Number: [id number]: [id number] Blood 11/07/2024 3:38 PM EDT 11/12/2024 7:51 AM EDT Yonatan Lebron MD POINT OF CARE TEST ORDERABLES Final Result [facility]
[address] [place] [address], * (ABNORMAL) POC Glucose Once (11/07/2024 3:10 PM EDT) Glucose 51(L) 70 - 130 mg/dL 11/07/2024 3:11 PM EDT [facility] Comment:Serial Number: [id number]: [id number] Blood 11/07/2024 3:10 PM EDT 11/07/2024 3:11 PM EDT us Alexsander Branch MD POINT OF CARE TEST ORDERAB LES Final Result [facility]
[address] [place] [address], * Cortisol (11/07/2024 3:08 PM EDT) Cortisol 7.95 mcg/dL 11/07/2024 4:30 PM EDT [facility] Blood Line / Unknown 11/07/2024 3: 08 PM EDT 11/07/2024 3:15 PM EDT [facility] - 11/07/2024 4:30 PM EDT Cortisol Reference Ranges: Cortisol 6AM - 10AM Range: 6.02-18.40 mcg/dl Cortisol 4PM - 8PM Range: 2.68-10.50 mcg/dl Results may be falsely increased if patient taking Biotin. Dina Sanchez TIME STUDY CLERK LAB BLOOD ORDERABLES Final Result Performing Organization Address City/[facility]/ZIP Co de Phone Number [facility]
[address] [place] [address], * (ABNORMAL) High Sensitivity Troponin T (11/07/2024 3:08 PM EDT) HS Troponin T 22(H) <22 ng/L 11/07/2024 4:30 PM EDT [facility] Blood Line / Unknown 11/07/2024 3: 08 PM EDT 11/07/2024 3:15 PM EDT [facility] - 11/07/2024 4:30 PM [...] BLOOD ORDERABLES Final Result Performing Organization Address City/[facility]/ZIP Co de Phone Number [facility]
[address] [place] [address], * Protime-INR (11/07/2024 3:08 PM EDT) Protime 14.5 12.2 - 15.3 Seconds 11/07/2024 4:07 PM EDT [facility] INR 1.07 0.89 - 1.12 11/07/2024 4:07 PM EDT [facility] Blood Line / Unknown 11/07/2024 3: 08 PM EDT 11/07/2024 3:15 PM EDT Dina E Daniel MALDONADO LAB BLOOD ORDERABLES Final Result Performing Organization Address [facility] Co de Phone Number [facility]
[address] [place] [address], * (ABNORMAL) Procalcitonin (11/07/2024 3:08 PM EDT) Procalcitonin 0.38(H) 0.00 - 0.25 ng/mL 11/07/2024 4:24 PM EDT [facility] Blood Line / Unknown 11/07/2024 3: 08 PM EDT 11/07/2024 3:15 PM EDT Narrative [facility] - 11/07/2024 4:24 PM [...] Day 4 values are available. Refer to http://www.fegrnm-osf-xcwstvukgb.com Change in PCT <=80% A decrease of [...] BLOOD ORDERABLES Final Result Performing Organization Address City/[facility]/ZIP Co de Phone Number [facility]
[address] [place] [address], * (ABNORMAL) Phosphorus (11/07/2024 3:08 PM EDT) Phosphorus 5.4(H) 2.5 - 4.5 mg/dL 11/07/2024 4:30 PM EDT [facility] Blood Line / Unknown 11/07/2024 3: 08 PM EDT 11/07/2024 3:15 PM EDT Dina Sanchez APRN LAB BLOOD ORDERABLES Final Result Performing Organization Address City/[facility]/ZIP Co de Phone Number [facility]
[address] [place] [address], * Magnesium (11/07/2024 3:08 PM EDT) Magnesium 1.9 1.6 - 2.6 mg/dL 11/07/2024 4:36 PM EDT [facility] Blood Line / Unknown 11/07/2024 3: 08 PM EDT 11/07/2024 3:15 PM EDT Dina Sanchez APRN LAB BLOOD ORDERABLES Final Result Performing Organization Address [facility] Co de Phone Number [facility]
[address] [place] [address], * (ABNORMAL) Lactic Acid, Plasma (11/07/2024 3:08 PM EDT) Lactate 2.6(HH) 0.5 - 2.0 mmol/L 11/07/2024 4:11 PM EDT [facility] Comment:Falsely depressed re sults may occur on samples drawn from patients receiving N-Acetylcysteine (NAC) or Metamizole. Blood Line / Unknown 11/07/2024 3: 08 PM EDT 11/07/2024 3:15 PM EDT Dina Sanchez TIME STUDY CLERK LAB BLOOD ORDERABLES Final Result Performing Organization Address [facility] de Phone Number [facility]
[address] [place] [address], * (ABNORMAL) Comprehensive Metabolic Panel (11/07/2024 3:08 PM EDT) Glucose 48(LL) 65 - 99 mg/dL 11/07/2024 4:36 PM EDT [facility] BUN 33.3(H) 6.0 - 20.0 mg/dL 11/07/2024 4:36 PM EDT [facility] Creatinine 3.72(H) 0.76 - 1.27 mg/dL 11/07/2024 4:36 PM EDT [facility] Sodium 136 136 - 145 mmol/L 11/07/2024 4:36 PM EDT [facility] Potassium 5.1 3.5 - 5.2 mmol/L 11/07/2024 4:36 PM EDT [facility] Chloride 96(L) 98 - 107 mmol/L 11/07/2024 4:36 PM EDT [facility] CO2 28.0 22.0 - 29.0 mmol/L 11/07/2024 4:36 PM EDT [facility] Calcium 9.0 8.6 - 10.5 mg/dL 11/07/2024 4:36 PM EDT [facility] Total Protein 6.6 6.0 - 8.5 g/dL 11/07/2024 4:36 PM EDT [facility] Albumin 3.8 3.5 - 5.2 g/dL 11/07/2024 4:36 PM EDT [facility] ALT (SGPT) 20 1 - 41 U/L 11/07/2024 4:36 PM EDT [facility] AST (SGOT) 18 1 - 40 U/L 11/07/2024 4:36 PM EDT [facility] Alkaline Phosphatase 50 39 - 117 U/L 11/07/2024 4:36 PM EDT [facility] Total Bilirubin 0.4 0.0 - 1.2 mg/dL 11/07/2024 4:36 PM EDT [facility] Globulin 2.8 gm/dL 11/07/2024 4:36 PM EDT [facility] Comment:Calculated Result A/G Ratio 1.4 g/dL 11/07/2024 4:36 PM EDT [facility] BUN/Creatinine Ratio 9.0 7.0 - 25.0 11/07/2024 4:36 PM T [facility] Anion Gap 12.0 5.0 - 15.0 mmol/L 11/07/2024 4:36 PM EDT [facility] eGFR 18.1(L) >60.0 mL/min/1.7 3 11/07/2024 4:36 PM T [facility] Blood Line / Unknown 11/07/2024 3: 08 PM EDT 11/07/2024 3:15 PM EDT [facility] - 11/07/2024 4:36 PM [...] race as a factor us Dina Sanchez TIME STUDY CLERK LAB BLOOD ORDERABLES Final Result [facility]
[address] [place] [address], * (ABNORMAL) CBC Auto Differential (11/07/2024 3:08 PM EDT) WBC 12.28(H) 3.40 - 10.80 10*3/mm3 11/07/2024 3:27 PM EDT [facility] RBC 5.00 4.14 - 5.80 10*6/mm3 11/07/2024 3:27 PM EDT [facility] Hemoglobin 14.4 13.0 - 17.7 g/dL 11/07/2024 3:27 PM EDT [facility] Hematocrit 44.3 37.5 - 51.0 % 11/07/2024 3:27 PM EDT [facility] MCV 88.6 79.0 - 97.0 fL 11/07/2024 3:27 PM EDT [facility] MCH 28.8 26.6 - 33.0 pg 11/07/2024 3:27 PM EDT [facility] MCHC 32.5 31.5 - 35.7 g/dL 11/07/2024 3:27 PM EDT [facility] RDW 15.4 12.3 - 15.4 % 11/07/2024 3:27 PM [facility] RDW-SD 50.0 37.0 - 54.0 fl 11/07/2024 3:27 PM [facility] MPV 11.4 6.0 - 12.0 fL 11/07/2024 3:27 PM [facility] Platelets 145 140 - 450 10*3/mm3 11/07/2024 3:27 PM [facility] Neutrophil % 75.6 42.7 - 76.0 % 11/07/2024 3:27 PM [facility] Lymphocyte % 18.0(L) 19.6 - 45.3 % 11/07/2024 3:27 PM [facility] Monocyte % 5.5 5.0 - 12.0 % 11/07/2024 3:27 PM [facility] Eosinophil % 0.3 0.3 - 6.2 % 11/07/2024 3:27 PM [facility] Basophil % 0.2 0.0 - 1.5 % 11/07/2024 3:27 PM [facility] Immature Grans % 0.4 0.0 - 0.5 % 11/07/2024 3:27 PM [facility] Neutrophils, Absolute 9.28(H) 1.70 - 7.00 10*3/mm3 11/07/2024 3:27 PM [facility] Lymphocytes, Absolute 2.21 0.70 - 3.10 10*3/mm3 11/07/2024 3:27 PM [facility] Monocytes, Absolute 0.67 0.10 - 0.90 10*3/mm3 11/07/2024 3:27 PM [facility] Eosinophils, Absolute 0.04 0.00 - 0.40 10*3/mm3 11/07/2024 3:27 PM [facility] Basophils, Absolute 0.03 0.00 - 0.20 10*3/mm3 11/07/2024 3:27 PM [facility] Immature Grans, Absolute 0.05 0.00 - 0.05 10*3/mm3 11/07/2024 3:27 PM EDT [facility] nRBC 0.0 0.0 - 0.2 /100 WBC 11/07/2024 3:27 PM EDT [facility] Blood Line / Unknown 11/07/2024 3: 08 PM EDT 11/07/2024 3:15 PM EDT Dina Sanchez TIME STUDY CLERK LAB BLOOD ORDERABLES Final Result Performing Organization Address City/[facility]/ZIP Co de Phone Number [facility]
[address] [place] [address], [place] [phone] * BNP (11/07/2024 3:08 PM EDT) [facility] proBNP 74.0 0.0 - 900.0 pg/mL 11/07/2024 4:30 PM EDT [facility] Blood Line / Unknown 11/07/2024 3: 08 PM EDT 11/07/2024 3:15 PM EDT Narrative [facility] - 11/07/2024 4:30 PM [...] BLOOD ORDERABLES Final Result Performing Organization Address City/[facility]/ZIP Co de Phone Number [facility]
[address] [place] [address], [place] [phone] * XR Chest 1 View (11/07/2024 3:02 PM EDT) Anatomical Region Laterality Modality Body N/A Radiographic Apurva ging 11/07/2024 3:12 PM EDT Impressions 11/07/2024 3:13 PM EDT Impression: No radiographic evidence of acute cardiopulmonary abnormality. Electronically Signed: Florian Luo MD 11/07/2024 3:13 PM EDT Workstation ID: [id number] Narrative 11/07/2024 3:13 PM EDT XR CHEST [...] MD 11/07/2024 3:13 PM EDT Workstation ID: [id number] Dina Sanchez TIME STUDY CLERK IMG DIAGNOSTIC IMAGING ORDE RABGLENNA Final Result * (ABNORMAL) Hemoglobin A1c (11/07/2024 3:00 PM EDT) Hemoglobin A1C 5.89(H) 4.80 - 5.60 % 11/07/2024 5:36 PM EDT [facility] Blood Line / Unknown 11/07/2024 3: 00 PM EDT 11/07/2024 3:04 PM EDT Narrative [facility] - 11/07/2024 5:36 PM EDT Hemoglobin A1C Ranges: Increased Risk for Diabetes 5.7% to 6.4% Diabetes >= 6.5% Diabetic Goal < 7.0% us Dina Sanchez TIME STUDY CLERK LAB BLOOD ORDERABLES Final Result [facility]
[address] [place] [address], * CT Outside Head (11/07/2024 2:56 PM [...] POC Glucose Once (11/07/2024 2:38 PM EDT) [facility] Signature Glucose 50(L) 70 - 130 mg/dL 11/07/2024 2:40 PM EDT [facility] Comment:Serial Number: [id number]: [id number] Blood 11/07/2024 2:38 PM EDT 11/07/2024 2:40 PM EDT us Alexsander Branch MD POINT OF CARE TEST ORDERAB LES Final Result [facility]
[address] [place] [address], documented in this encounter Visit Diagnoses Diagnosis Syncope- Primary Syncope and collapse Syncope and collapse Type 2 diabetes mellitus Tobacco use CAD Coronary atherosclerosis of unspecified type of vessel, [place] or graft GERD Esophageal reflux Bipolar disorder [...] for injection by adding 1 mL of building mover-supplied sterile diluent or sterile water for injection [...] mg/dL - 9 units & Call Provider ([facility]) Caution: Look alike/sound alike drug alert([facility]) Given 11/10/2024 9:47 PM EDT 2 Units [...] with warm soapy water or use hand professor of practice. 3. Open the tube of mupirocin 2%. [...] injection 40 mg 40 mg, Intravenous, Every Hardware Sales Assistant, First dose on Mon11/08/24 at 0600, Dilute [...] mL/hr, Administer over 4 Hours, Once, On [facility] 11/09/24 at 0715, For 1 dose New [...] at 1700, For 1 dose, Group 2 ([place]) Hazardous Drug - Reproductive Risk Only - [...] Consider requesting a dose edit, if needed. ([facility]) 0817 (Given - Provider: Garland Dumont RN) [...] mg/dL - 9 units & Call Provider ([facility]) Caution: Look alike/sound alike drug alert([facility]) 0817 (Given - Provider: Garland Dumont, RN)1231 (Given - Provider: Garland Dumont, RN)173 (Given - Provider: Vivi Carmona RN - Comment: bs 162)2026 (Given - Provider: Becca Barirentos, YASIR) 0804 (Not Given - Provider: Gerber [...] Patient/family refused)1547 (Not Given - Provider: Ceci Reese, KAM - Reason: Patient/family refused)2009 (Given - Provider: Lissa Lara, [employer] GAME TECHNICIAN) 0739 (Not Given - Provider: Marlen Conrad, [employer] GAME TECHNICIAN - Reason: Contraindicated) lamoTRIgine (LaMICtal) tablet 100 [...] with warm soapy water or use hand professor of practice. 3. Open the tube of mupirocin 2%. [...] together and massage gently for 60 seconds. ([facility]) 0818 (Given - Provider: Garland Dumont RN)2027 [...] Education 0739 (Given - Provider: Latisha Witt, [employer] GAME TECHNICIAN) 09 (Given - Provider: Shyanne Tripp, [employer] GAME TECHNICIAN) 0739 (Given - Provider: Marlen Conrad, [employer] GAME TECHNICIAN) rosuvastatin (CRESTOR) tablet 10 mg 10 mg, [...] for injection by adding 1 mL of building mover-supplied sterile diluent or sterile water for injection [...] diarrhea documented in this encounter Care Teams Tow Motor Driver Relationship Specialty Start Date End Date Provider, [place] [address] PCP - General 11/07/24 documented as of this encounter
--- OUTSIDE RECORDS SUMMARY | 2024-11-22 06:30 | XMS_ITS ---
[facility] Address [address] [facility] [address] [place] [id number] Care Team Providers Care Jewel Bearing Broacher Name Role Phone Todd Alvarado Primary Care Provider Sera Allen Unavailable [phone] Allergies Allergen (clinical drug ingredient) Drug/Non Drug Allergy documented on EMR Reaction Allergy Type Onset Date Status acetaminophen / hydrocodone HYDROcodone-Acetamino phen Unknown Drug Allergy Active REASON FOR VISIT 1 week Medications Medication SIG (Take, Route, Frequency, Duration) Notes Start Date End Date Status Glimepiride 4 MG 1 tab(s) orally once a day; Duration: 90 days Not-Takin g Tresiba FlexTouch 200 UNIT/ML 5 units subcutaneously once a day Not-Taking Venlafaxine HCl ER 37.5 MG 1 cap(s) orally once a day; Duration: 30 day(s) Not-Kareem ing Losartan Potassium 100 MG 1/2 orally once a day Not-Ta jerilyn Klor-Con 10 10 MEQ TAKE 1 TABLET EVERY DAY; Duration: 90 Not-Taking Accu-Chek Guide Test - TEST BLOOD SUGAR TWO TIMES DAILY DIRECTED; Duration: 90 Active Omeprazole 40 MG 1 cap(s) Orally once daily; Duration: 90 days Active Breztri Aerosphere 160-9-4.8 MCG/ACT 2 puffs Inhalation Twice a day Active Metoprolol Succinate ER 50 MG 1/2 tab orally once a day Active Methocarbamol 750 MG 1 tablet Orally mis ry 4 hrs Not-Taking Pen [place] 32G X 4 MM as directed 09/09/2022 Active Droplet Pen [place] 32G X 4 MM USE DIRECTED; Duration: 90 Active Accu-Chek Guide - USE DIRECTED TO T EST TWO TIMES DAILY; Duration: 90 Active metFORMIN HCl 500 MG 1 tablet with a haylie l orally 2 times a day; Duration: 90 days Active Aspirin 81 MG 1 tab(s) orally once a day; Duration: 30 day(s) Active Prasugrel HCl 10 MG as directed Orally Active Rosuvastatin Calcium 20 MG 1 tablet Orally Once a day Active lamoTRIgine 200 MG 1 tab(s) orally 2 ti mes a day Active QUEtiapine Fumarate ER 150 MG 1 tab(s) orally once a day (in the evening); Duration: 30 day(s) Active Albuterol Sulfate HFA 108 (90 Base) MCG/ACT 2 puff(s) inhaled every 6 hours Active Gabapentin 800 MG 1 tablet Orally 3 ti mes a day Active LORazepam 0.5 MG 1 tab Orally 3 times a day, prn Active Stiolto Respimat 2.5-2.5 MCG/ACT 2 puffs Inhalation Once a day Active Vilazodone HCl 40 MG 1 tablet with food Orally Once a day Active Nitroglycerin 0.4 MG 1 tablet under the tongue and allow to dissolve as needed. Take every 5 minutes up to 3 times if chest pain persists Sublingual Three times a day Active Furosemide 40 MG 2 tabs orally once a day; Duration: 90 days Not-Takin g Spironolactone 50 MG 1 tablet Orally Onc e a day Not-Taking Losartan Potassium 25 MG 1 tablet Orally Once a day; Duration: 90 days 11/22/2024 Active Vital Signs Weight 251.4 lbs 11/22/2024 Blood pressure systolic 126 mm Hg 11/23/19 25 Blood pressure diastolic 90 mm Hg 025 Heart Rate 79 /min 11/22/2024 Height 70 in 11/22/2024 BMI 36.07 kg/m2 11/22/2024 Encounters Encounter Location Date Provider Diagnosis [facility] [address] [facility] [address] [place] [id number] 11/22/2024 Sera Allen Acute pneumonia J18. 9 ; Acute renal failure, unspecified acute renal failure type N17.9 ; Symptomatic hypotension I95.9 ; Recurrent syncope R55 and Essential hypertension I10 Assessments Encounter Date Diagnosis (ICD Code) Assessment Notes Treatment Notes Treatment Clinical Notes Section Notes 11/22/2024 Acute pneumonia (ICD-10 - J18.9) Patient is finished with abx and WBC is normal. Will refrain from any further abx and get a repeat CXR. 11/22/2024 Acute renal failure, unspecified acute renal failure type (ICD-10 - N17.9) Renal function improved during admission. Will try to get discharge information from [facility]. Will recheck labs today. 11/22/2024 Symptomatic hypotension (ICD-10 - I95.9) BP has improved. Will remain off BP medication until he sees cardiology. 11/22/2024 Recurrent syncope (ICD-10 - R55) No further syncopal episodes. 11/22/2024 Essential hypertension (ICD-10 - I10) Cardiology started him back on the toprol. Will start back on a low dose of losartan as BP readings at home have been high. Plan Of Treatment Medication Medication Name Sig Start Date Stop Date Notes Losartan Potassium 25 MG 1 tablet Orally Once a day; Duration: 90 days 11/22/2024 Treatment Notes Assessment Notes Acute pneumonia Patient is finished with abx and WBC is normal. Will refrain from any further abx and get a repeat CXR. Acute renal failure, unspeci fied acute renal failure type Renal function improved during admission . Will try to get discharge information from [facility]. Will recheck labs today. Symptomatic hypotension BP has improved. Will remain off BP medication until he sees cardiology. Recurrent syncope No further syncopal episodes. Essential hypertension Cardiology starte d him back on the toprol. Will start back on a low dose of losartan as BP readings at home have been high. Next Appt Details Follow Up: 3 Months, Reason: Provider Name:Sera menezes, 02/21/2025 09:15:00 AM, [address], [address], [place], [place], [id number], Provider Name:Sera menezes, 02/28/2025 09:00:00 AM, [address], [address], [place], [place], [id number], Progress Notes * Leigh BASSETTOB:[birth year] (59 yo M)Acc No.[id number]:11/22/2024 Progress Notes Patient: Milton ATKINS Provider: MARIANNA Starr :1965 A ge:58 Y S ex:Male Date:11/22/2024 Address:[address], [id number] Pcp:Todd Alvarado Subjective: * Chief Complaints: * 1 . 1 week. * HPI: C ardiology: 58 year old male presents with c/o BloodPressure at Home P t is here today for a 1 week f/u on Hypertension. Pt sts when checking at home his systolic number has been high and sts his dystolic number has been normal. E ndocrinology: c/o Recent Blood Sugars. * ROS: D ERMATOLOGY: no R eugenia. [...] . Alcohol: no. * Medications: T aking LORazepam 0.5 MG Tablet 1 tab Orally 3 times a day, prn , Taking Stiolto Respimat 2.5-2.5 MCG/ACT Aerosol Solution 2 puffs Inhalation Once a day , Taking Vilazodone HCl 40 MG Tablet 1 tablet with food Orally Once a day , Taking Nitroglycerin 0.4 MG Tablet Sublingual 1 tablet under the tongue and allow to dissolve as needed. Take every 5 minutes up to 3 times if chest pain persists Sublingual Three times a day , Taking Gabapentin 800 MG Tablet 1 tablet Orally 3 times a day , Taking Prasugrel HCl 10 MG Tablet as directed Orally , Taking Rosuvastatin Calcium 20 MG Tablet 1 tablet Orally Once a day , Taking lamoTRIgine 200 MG Tablet 1 tab(s) orally 2 times a day , Taking QUEtiapine Fumarate ER 150 MG Tablet Extended Release 24 Hour 1 tab(s) orally once a day (in the evening) , Taking Albuterol Sulfate HFA 108 (90 Base) MCG/ACT Aerosol Solution 2 puff(s) inhaled every 6 hours , Taking Aspirin 81 MG Tablet Delayed Release 1 tab(s) orally once a day , Taking Pen [place] 32G X 4 MM Miscellaneous as directed , Taking Droplet Pen [place] 32G X 4 MM Miscellaneous USE DIRECTED , Taking Accu-Chek Guide - Strip USE DIRECTED TO TEST TWO TIMES DAILY , Taking metFORMIN HCl 500 MG Tablet 1 tablet with a meal orally 2 times a day , Taking Accu-Chek Guide Test - Strip TEST BLOOD SUGAR TWO TIMES DAILY DIRECTED , Taking Omeprazole 40 MG Capsule Delayed Release 1 cap(s) Orally once daily , Taking Breztri Aerosphere 160-9-4.8 MCG/ACT Aerosol 2 puffs Inhalation Twice a day , Taking Metoprolol Succinate ER 50 MG Tablet Extended Release 24 Hour 1/2 tab orally once a day , Not-Taking Methocarbamol 750 MG Tablet 1 tablet Orally every 4 hrs , Not-Taking Losartan Potassium 100 MG Tablet 1/2 orally once a day , Not-Taking Klor-Con 10 10 MEQ Tablet Extended Release TAKE 1 TABLET EVERY DAY , Not-Taking Glimepiride 4 MG Tablet 1 tab(s) orally once a day , Not-Taking Tresiba FlexTouch 200 UNIT/ML Solution Pen-injector 5 units subcutaneously once a day , Not-Taking Venlafaxine HCl ER 37.5 MG Capsule Extended Release 24 Hour 1 cap(s) orally once a day , Not-Taking Furosemide 40 MG Tablet 2 tabs orally once a day , Not-Taking Spironolactone 50 MG Tablet 1 tablet Orally Once a day , Medication List reviewed and reconciled with the patient * Allergies: H YDROcodone-Acetaminophen. Objective: * Vitals: W t: 251.4, Temp: 98.7, BP: 126/90, HR: 79, O2 Sat: 92% on RA, Nurse: saurabh, Ht: 70, BMI:36.07. * Examination: G eneral Examination: General Appearance: N AD. H EENT: u nremarkable.?Oral cavity: n o lesions, mucosa moist and WNL, no erythema. N jennifer: s upple, no lymphadenopathy. C hest: n ormal shape and expansion. H eart: R SR. L ungs: c lear to auscultation. A bdomen: b owel sounds present, soft and nontender, no organomegaly or masses, no guarding or rigidity. N eurologic Exam: I ntact, gait normal. S kin: n ormal, no rash. P eripheral pulses: n ormal (2+) bilaterally. E xtremities: n o leg edema. Assessment: * Assessment: 1. A cute pneumonia - J18.9 (Primary) 2 . A cute renal failure, unspecified acute renal failure type - N17.9 3 . S ymptomatic hypotension - I95.9 ? 4 . R ecurrent syncope - R55 5 . E ssential hypertension - I10 ? Plan: * Treatment: 2. A cute renal failure, unspecified acute renal failure type Notes: Renal function improved during admission. Will try to get discharge information from [facility]. Will recheck labs today. 3. S ymptomatic hypotension Notes: BP has improved. Will remain off BP medication until he sees cardiology. 4. R ecurrent syncope Notes: No further syncopal episodes. 5. E ssential hypertension Start Losartan Potassium Tablet, 25 MG, 1 tablet, Orally, Once a day, 90 days, 90 Tablet, Refills 1. Notes: Cardiology started him back on the toprol. Will start back on a low dose of losartan as BP readings at home have been high. * Follow Up: 3 Months * Images: Billing Information: * Visit Code: 03912 Office Visit, Est Pt., Level 4. * Procedure Codes: * Electronic signature of MARIANNA Benito on 12/17/2024 at 01:15 PM EDT Sign off status: Pending * Provider: MARIANNA Starr Date: 11/22/2024 Generated for Miguel love/Rodney/Billitting on: 12/17/2024 01:15 PM EDT History and Physical Notes * HPI (History of Present Illness) Category Sub-Category Detail Notes Category Not es Endocrinology Recent Blood Sugars Cardiology BloodPressure at Home Pt is here today for a 1 week f/u on Hypertension. Pt sts when checking at home his systolic number has been high and sts his dystolic number has been normal Examination Category Sub-Category Detail Notes Category Not [...]
--- OUTSIDE RECORDS SUMMARY | 2024-12-03 10:57 | XMS_ITS ---
Author Organization [facility] Address [address] [facility] [address] [place] [id number] Care Team Providers Care Supervisor Kosher Dietary Service Name Role Phone [place], Todd Primary Care Provider REASON FOR VISIT due LDCT Problems Problem Type SNOMED Code ICD Code Onset Dates Problem Status W/U Status Risk Notes Problem Cigarette smoker (65341400) Cigarette smoker (F17.210) Active confirmed Encounters Encounter Location Date Provider Diagnosis [facility] [address] [place] [address] [place] [id number] 12/03/2024 Todd Alvarado Encounter for screening for lung cancer Z12.2 and Cigarette smoker F17.210 Assessments Encounter Date Diagnosis (ICD Code) Assessment Notes Treatment Notes Treatment Clinical Notes Section Notes 12/03/2024 Encounter for screening for lung cancer (ICD-10 - Z12.2) 12/03/2024 Cigarette smoker (ICD-10 - F17.210) Plan Of Treatment Pending Test Test Name Order Date CT Scan : Chest, low dose 12/03/2024 Next Appt Details Provider Name:Sera menezes, 02/21/2025 09:15:00 AM, [address] [place], [address], [place], [phone], Provider Name:Sera menezes, 02/28/2025 09:00:00 AM, [address] [place], [address], [place], [id number], Progress Notes * Leigh BASSETTOB:[birth year] (59 yo M)Acc No.[id number]:12/03/2024 Patient: Milton ATKINS :1965 A ge:59 Y S ex:Male Address:[place] [address] Subjective: * Chief Complaints: * d ue LDCT * Medical History: * Surgical History: * Hospitalization/Major Diagno stic Procedure: * Medications: Objective: * Vitals: * Physical Examination: Assessment: * Assessment: 1. E ncounter for screening for lung cancer - Z12.2 (Primary) 2 . C igarette smoker - F17.210 Plan: * Treatment: 2.?Cigarette smoker?Imaging: CT Scan : Chest, low dose* Sallie Youssef 12/06/2024 11:1 0:15 AM EDT > sent to [facility] for referral to [facility] * Procedure Codes: * true * Date: Generated for Miguel love/Rodney/eTkmsmitting on: 0 12/17/2024 01:12 PM EDT
--- NOTE | 2024-12-17 13:10 | CT_ITS ---
FINAL REPORT TECHNIQUE: Axial images were obtained from the lung apex to the mid abdomen by computed tomography. This study was performed with techniques to keep radiation doses as low as reasonably achievable (ALARA). Individualized dose reduction techniques using automated exposure control or adjustment of mA and/or kV according to the patient's size were employed. CLINICAL HISTORY: CIGARETTE SMOKER smoker 1 ppd x 54 years COMPARISON: 09/06/2022 FINDINGS: CHEST CT LOW DOSE CTDI vol (mGy): 2.90 DLP (mGy-cm): 96.38 There is no axillary adenopathy. There is no hilar or mediastinal adenopathy. There are small noncalcified lymph nodes. There is moderate vascular calcification at the aortic arch. The heart is normal in size. There is no pericardial or pleural effusion. Lung window images demonstrate no suspicious infiltrate or nodule. There is scar or atelectasis in the right middle lobe and lingula. Limited images of the upper abdomen are unremarkable. IMPRESSION: Lung RADS category 1. Recommend 12 month follow-up low-dose chest CT. Reviewed, Interpreted and Dictated by Tereso Guillen MD Transcribed by Osiris Haque Authenticated and [facility]
--- OUTSIDE RECORDS SUMMARY | 2024-12-17 13:13 | XMS_ITS | Clinical Summary ---
Author Organization [facility] Address [address] [place] [address] Phone Care Team Providers Care Mat Machine Operator Name Role Phone Unavailable Primary Care Provider [...] Colonography 11/30/2011 Zoster (1 of 2) 2016 Pneumococcal Vaccine 50+ (2 of 2 - PCV) 01/13/2024 01/12/2023 COVID-19 Vaccine (1 - 2023-2 5 season) 2024 Influenza Vaccine (#1) 2024 01/22/2019 Meningococcal B Vaccine Aged Out No l onger eligible based on patient's age to complete this topic Insurance [facility] ADVANTAGE MR
--- OUTSIDE RECORDS SUMMARY | 2024-12-17 13:13 | XMS_ITS | Encounter Summary ---
[facility] Address [address] [place] [address] Care Team Providers Care Wildland Fire Fighter Name Role Phone Provider, No Known Primary Care Provider Unavail able Encounter Details Date Type Department Care Team (Late st Contact Info) Description 11/15/2024 Readmission Management [facility] [address] [place] [phone] Janet Braun RN Social History Tobacco [...] or training? Not on file Preferred Language Macedonian 11/08/2024 Sex and Gender Information Value Date [...] Medical Week 1 Survey Flowsheet Row Responses [facility] patient discharged from? [place] Does the patient have one of the [...] 1 call completed? Yes Call end time [phone] Janet Nazario - Registered Nurse documented in this encounter Plan of Treatment Not on file documented as of this encounter Visit Diagnoses Not on filedocumented in this encounter Care Teams Wildland Fire Fighter Relationship Specialty Start Date End Date Provider, [place] [address] PCP - General 11/07/24 documented as of this encounter
--- OUTSIDE RECORDS SUMMARY | 2024-12-17 13:13 | XMS_ITS | Encounter Summary ---
[facility] Address [address] [place] [address] Care Team Providers Care Fan Mail Editor Name Role Phone Provider, No Known Primary Care Provider Unavail able Encounter Details Date Type Department Care Team (Late st Contact Info) Description 12/06/2024 Readmission Management [facility] [address] [place] [phone] Jose Dowling RN Social History Tobacco Use Types Packs/Day [...] or training? Not on file Preferred Language Venezuelan 11/08/2024 Sex and Gender Information Value Date Recorded Sex Assigned at Not on file Legal Sex Male 11:35 AM EDT Gender Identity Not on file Sexual Orientation Not on file documented as of this encounter Miscellaneous Notes * Outreach Note - Jose Dowling RN - 12/06/2024 9:25 AM EDT Medical Week 2 Survey Flowsheet Row Responses [facility] patient discharged from? [place] Does the patient have one of the following disease processes/diagnoses(primary or secondary)? Other Week 2 attempt successful? Yes Call start time 927 Discharge diagnosis Syncope Call end time 928 Meds reviewed with patient/caregiver? Yes Is the patient having any side effects they believe may be caused by any medication additions or changes? No Does the patient have all medications ordered at discharge? Yes Is the patient taking all medications as directed (includes completed medication regime)? Yes Does the patient have a primary care provider? Yes Psychosocial issues? No Did the patient receive a copy of their discharge instructions? Yes What is the patient's perception of their health status since discharge? Improving Is the patient/caregiver able to teach back signs and symptoms related to disease process for when to call PCP? Yes Is the patient/caregiver able to teach back signs and symptoms related to disease process for when to call 911? Yes Is the patient/caregiver able to teach back the hierarchy of who to call/visit for symptoms/problems? PCP, Specialist, Home health nurse, Urgent Care, ED, 911 Yes Week 2 Call Completed? Yes Graduated Yes Did the patient feel the follow up calls were helpful during their recovery period? Yes Was the number of calls appropriate? Yes Is the patient interested in additional calls from an ambulatory community case manager? No Would this patient benefit from a Referral to [facility] Social Work? No Wrap up additional comments Patient reports doing well. Denies any needs at this time. Call end time 928 JOSE Adan - Registered Nurse documented in this encounter Plan of Treatment Not on file documented as of this encounter Visit Diagnoses Not on filedocumented in this encounter Care Teams Fan Mail Editor Relationship Specialty Start Date End Date Provider, [place] [address] PCP - General 11/07/24 documented as of this encounter
--- OUTSIDE RECORDS SUMMARY | 2024-12-17 13:13 | XMS_ITS | Encounter Summary ---
Author Organization [facility] Address [address] [place] [address] Care Team Providers Care Seal Delivery Vehicle Officer Name Role Phone Maged Sharma MD Primary Care Provider [phone] Encounter Details Date Type Department Care Team [...] [place] [phone] Guillaume Reeves MD [address] [place] [phone] documented as of this encounter Visit Diagnoses Not on filedocumented in this encounter Additional Health Concerns Assessment Noted Time A Body Mass Index follow-up plan has been documented for the patient 11/01/2024 1:08 PM EDT documented as of this encounter Care Teams Seal Delivery Vehicle Officer Relationship Specialty Start Date End Date Maged Sharma MD [address] [place] [address] PCP - General 07/31/20 documented as of this encounter
--- OUTSIDE RECORDS SUMMARY | 2024-12-17 13:13 | XMS_ITS | Clinical Summary ---
Author Organization [facility] Address [address] [place] [address] Care Team Providers Care Drafter Civil Engineering Name Role Phone Maged Sharma MD Primary Care Provider [phone] Allergies Active Allergy Reactions Criticality Noted Date [...] comorbidity 11/01/2024 Coronary artery disease invo lving penobscot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penobscot heart without angina pectoris 11/01/2024 Type 2 [...] Description 11/01/2024 12:20 PM EDT Office Visit [facility] [address] [place] [address] Guillaume Reeves MD Severe obesity (BMI 35.0-39.9) with comorbidity (CMS/HCC) (Primary Dx); 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; Type 2 diabetes mellitus with chronic kidney disease, without long-term current use of insulin, unspecified CKD stage (CMS/HCC); CKD stage 3a, GFR 45-59 ml/min (CMS/HCC); Hypertensive chronic kidney disease with stage 1 through stage 4 chronic kidney disease, or unspecified chronic kidney disease; Chronic kidney disease-mineral and bone disorder (CKD-MBD) 11/01/2024 Orders Only [facility] [address] [address] Loren Pike 11/01/2024 Travel 09/19/2024 Orders Only [facility] [address] [address] Loren Pike CKD (chronic kidney disease) stage 3, GFR 30-59 ml/min ([facility]) (Primary Dx); Vitamin D insufficiency [...] Description 01/24/2025 12:40 PM EST Office Visit [facility] [address] [place] [address] Guillaume Reeves MD [address] [place] [address] Health Maintenance Due Date Last [...] 11/30/2011 [facility]-Zoster Vaccines (1 of 2) 2016 [facility]-Pneumococcal Vaccine: 50 + Years (2 of 2 - PCV) 01/13/2024 01/12/2023 [id number] Vaccine (1 - 2023- season) 2024 [facility]-Influenza Vaccine (#1) 2024 01/22/2019 [facility]-Diabetes: Hemoglobin [...] Health Maintenance Insurance [employer] MEDICARE Care Teams Drafter Civil Engineering Relationship Specialty Start Date End Date Maged Sharma MD [facility] [address] [place] [address] PCP - General 07/31/20
--- OUTSIDE RECORDS SUMMARY | 2024-12-17 13:13 | XMS_ITS | Encounter Summary ---
Author Organization [facility] Address [address] [place] [address] Care Team Providers Care Production Department Supervisor Name Role Phone Maged Sharma MD Primary Care Provider [phone] Encounter Details Date Type Department Care Team ([facility] Contact Info) Description 11/01/2024 Orders Only [place] [id number] [place] [address] Loren [...] Description 01/24/2025 12:40 PM EST Office Visit [place] [address] [place] [address] Guillaume Reeves MD [address] [place] [phone] documented as of this encounter Visit Diagnoses Not on filedocumented in this encounter Additional Health Concerns Assessment Noted Time A Body Mass Index follow-up plan has been documented for the patient 11/01/2024 1:08 PM EDT documented as of this encounter Care Teams Production Department Supervisor Relationship Specialty Start Date End Date Maged Sharma MD [address] [place] [address] PCP - General 07/31/20 documented as of this encounter
--- OUTSIDE RECORDS SUMMARY | 2024-12-17 13:13 | XMS_ITS | Encounter Summary ---
[facility] Address [address] [place] [address] Care Team Providers Care Card Placer Name Role Phone Provider, No Known Primary [...] or training? Not on file Preferred Language Tristanian 11/08/2024 Sex and Gender Information Value Date Recorded Sex Assigned at Not on file Legal Sex Male 11:35 AM EDT Gender Identity Not on file Sexual Orientation Not on file documented as of this encounter Plan of Treatment Not on file documented as of this encounter Visit Diagnoses Not on filedocumented in this encounter Care Teams Card Placer Relationship Specialty Start Date End Date Provider, [place] [address] PCP - General 11/07/24 documented as of this encounter
--- OUTSIDE RECORDS SUMMARY | 2024-12-17 13:13 | XMS_ITS | Patient Health Record ---
Author Organization [facility] Address [address] [place] [id number] Care Team Providers Care Regulatory Associate Name Role Phone Jenny Todd Primary Care Provider Sera Allen Unavailable [phone] Allergies Allergen (clinical drug ingredient) Drug/Non Drug [...] patient currently hospitalized? No Is patient an [facility] employee? N Is the patient employed in [...] Lab: Notes/Report: CBC Venipuncture (in house) Reviewed date:11/15/2024 01:19:45 PM Interpretation: Performing Lab: Notes/Report: wbc 9.0 3.5 - 10 lymph 17.6 15 - 50 mid 5.4 2 - 15 gran 77.0 35 - 80 rbc 4.74 3.5 - 5.5 hgb 13.6 11.5 - 16.5 hct 41.5 35 - 55 mcv 87.6 75 - 100 mch 28.8 25 - 35 mchc 32.9 31 - 38 platlet 129 100 - 400 P-Comprehensive Metabolic Pa jesika (CMP) Reviewed date:11/21/2024 02:54:09 PM Interpretation: Performing Lab: Notes/Report: CLIA: [id number] Jez Martines MD, Manager [employer] [facility] , [address], [place] [address] Test performed by [employer] Sodium 142 135-145 mmol/L Potassium 4.1 3.5-5.3 mmol/L Chloride 104 97-108 mmol/L CO2 27 20-32 mmol/L Glucose 88 65-99 mg/dL BUN 13 6-20 mg/dL Creatinine 1.23 0.70-1.30 mg/dL Calcium 9.4 8.6-10.4 mg/dL eGFR by Creatinine 68 >59 mL/min/1.73m2 Protein 6.4 6.0-8.3 g/dL Albumin 3.8 3.5-5.3 g/dL Alkaline Phosphatase 52 40-129 IU/L ALT (SGPT) 28 <5-55 IU/L AST (SGOT) 11 <5-46 IU/L Bilirubin, Total 0.2 <0.2-1.2 mg/dL A/G Ratio 1.5 1.1-2.5 P-TSH Reviewed date:11/21/2024 02:54:09 PM Interpretation: Performing Lab: Notes/Report: Test performed by [facility] [address] [place] [address] , [place] [address] Jez Martines MD, Manager Linux CLIA: [id number] TSH 2.97 0.43-5.25 mU/L CXR Reviewed date:11/21/2024 02:54:09 PM Interpretation:no pneumonia Performing Lab: Notes/Report: no pneumonia CXR Reviewed date:11/21/2024 02:54:09 PM Interpretation:no pneumonia Performing Lab: Notes/Report: no pneumonia CBC Venipuncture (in house) Reviewed date:03/27/2024 11:11:56 [...] 5 - 6.5 % P-Comprehensive Metabolic Pa ejsika (CMP) Reviewed date:03/28/2024 02:02:50 PM Interpretation:Glucose 142, Cr 1.38 Performing Lab: Notes/Report: CLIA: [id number] Jez Martines MD, Manager [employer] [address] [place] [address] , [address], [place] [address] Test performed by [facility] Sodium 142 135-145 mmol/L Potassium 4.9 3.5-5.3 [...] 29 Performing Lab: Notes/Report: Test performed by [employer] [address] [place] [address] , [address] , [place] [address] Jez Martines MD, Manager [employer] CLIA: [id number] Cholesterol 146 <200 mg/dL Triglycerides 378 <150 [...] Interpretation:normal Performing Lab: Notes/Report: Test performed by [facility] [address] [place], [place] [address] [place] , [address], [place] [id number] Jez Martines MD, Manager Linux CLIA: [id number] PSA 0.98 <4.00 ng/mL Please note this is an ultrasensitive PSA assay with a lower limit of detection of 0.014 ng/mL. This test is performed by the [employer] ECLIA methodology. Values obtained with different assay methods or kits cannot be directly compared. P-TSH reflex to FT4 Reviewed date:03/28/2024 02:02:50 PM Interpretation:normal Performing Lab: Notes/Report: Test performed by [facility] [address] [place], [place] [address] [place] , [address], [place] [address] Jez Martines MD, Manager [employer] CLIA: [id number] TSH reflex to FT4 4.35 0.43-5.25 mU/L CBC Venipuncture (in house) Reviewed date:08/30/2024 12:58:29 [...] Interpretation:Normal Performing Lab: Notes/Report: Test performed by [facility] [address] [place] [address] , [address], [place] [address] Jez Martines MD, Manager [employer] CLIA: [id number] Sodium 143 135-145 mmol/L Potassium 4.3 3.5-5.3 [...] 26 Performing Lab: Notes/Report: Test performed by [facility] [address] [place] [address] , [address], [place] [address] Jez Martines MD, Manager [employer] CLIA: [id number] Cholesterol 94 <200 mg/dL Triglycerides 204 <150 [...] Interpretation:Normal Performing Lab: Notes/Report: Test performed by [facility] [address] [place] [address] , [address], [place] [address] Jez Martines MD, Manager [employer] CLIA: [id number] TSH reflex to FT4 1.62 0.43-5.25 mU/L P-Microalbumin/Creatinine, R andom Urine Sample Reviewed date:08/30/2024 12:58:29 PM Interpretation:Normal Performing Lab: Notes/Report: Test performed by [facility] [address] , [place] [address] Jez Martines MD, Manager [employer] CLIA: [id number] Albumin/Creatinine Ratio, Urine 4 0-30 ug/mg Microalbumin, Urine, Random 0.9 Creatinine, Urine 251.0 pro[employer] Natriuretic Peptide Reviewed date:08/30/2024 12:58:29 PM Interpretation:Normal Performing Lab: Notes/Report: Test performed by [facility] [address] [place] [address] , [address], [place] [address] Jez Martines MD, Manager [employer] CLIA: [id number] pro[employer]rain Natriuretic Peptide 43 <300 pg/mL Please note the updated reference range values which are stratified by age. Positive >900 pg/mL Indeterminate 300-900 pg/mL Negative <300 pg/mL Medications Medication SIG (Take, Route, Frequency, Duration) Notes Start Date End Date Status Pen [place]ilford 32G X 4 MM as directed 09/09/2022 Active Droplet Pen [place] 32G X 4 MM USE DIRECTED; Duration: 90 Active Accu-Chek Guide - USE DIRECTED TO T EST TWO TIMES DAILY; Duration: 90 Active metFORMIN HCl 500 MG 1 tablet with a haylie l orally 2 times a day; Duration: 90 days Active lamoTRIgine 200 MG 1 tab(s) orally 2 ti mes a day Active QUEtiapine Fumarate ER 150 MG 1 tab(s) orally once a day (in the evening); Duration: 30 day(s) Active Albuterol Sulfate HFA 108 (90 Base) MCG/ACT 2 puff(s) inhaled every 6 hours Active Aspirin 81 MG 1 tab(s) orally once a day; Duration: 30 day(s) Active Furosemide 40 MG 2 tabs orally once a day; Duration: 90 days Not-Takin g Spironolactone 50 MG 1 tablet Orally Onc e a day Not-Taking Losartan Potassium 25 MG 1 tablet Orally Once a day; Duration: 90 days 11/22/2024 Active Prasugrel HCl 10 MG as directed Orally Active Rosuvastatin Calcium 20 MG 1 tablet Orally Once a day Active Gabapentin 800 MG 1 tablet Orally 3 ti mes a day Active LORazepam 0.5 MG 1 tab Orally 3 times a day, prn Active Glimepiride 4 MG 1 tab(s) orally once a day; Duration: 90 days Not-Takin g Stiolto Respimat 2.5-2.5 MCG/ACT 2 puffs Inhalation Once a day Active Tresiba FlexTouch 200 UNIT/ML 5 units subcutaneously once a day Not-Taking Vilazodone HCl 40 MG 1 tablet with food Orally Once a day Active Venlafaxine HCl ER 37.5 MG 1 cap(s) orally once a day; Duration: 30 day(s) Not-Kareem ing Nitroglycerin 0.4 MG 1 tablet under the tongue and allow to dissolve as needed. Take every 5 minutes up to 3 times if chest pain persists Sublingual Three times a day Active Metoprolol Succinate ER 50 MG 1/2 tab orally once a day Active Methocarbamol 750 MG 1 tablet Orally mis ry 4 hrs Not-Taking Losartan Potassium 100 MG 1/2 orally once a day Not-Ta jerilyn Klor-Con 10 10 MEQ TAKE 1 TABLET EVERY DAY; Duration: 90 Not-Taking Accu-Chek Guide Test - TEST BLOOD SUGAR TWO TIMES DAILY DIRECTED; Duration: 90 Active Omeprazole 40 MG 1 cap(s) Orally once daily; Duration: 90 days Active Breztri Aerosphere 160-9-4.8 MCG/ACT 2 puffs Inhalation Twice a day Active Immunizations Vaccine Route Administration Date Status Comme nts PNEUMOVAX 23 VACCINE IM Intramuscular 01/12/2023 Administe red DT, 7 YEARS OR OLDER Unknown 05/23/1996 Administered Problems Problem Type SNOMED Code ICD Code Onset Dates Problem Status W/U Status Risk Notes Problem Hyperglycemia (83696109) Hyperglycemia (R73.9) Active confirmed Problem Essential hypertension (08261339) Essential hypertension (I10) Active confirmed Problem Onychogryposis (56776153) Onychogryposis (L60.2) Active confirmed Problem Morbid obesity (disorder) (378168812) Morbid (severe) obesity due to excess calories (E66.01) Active confirmed Problem Type 2 diabetes mellitus with other specified complication (E11.69) Active confirmed Problem Mixed hyperlipidemia (052834276) Mixed hyperlipidemia (E78.2) Active confirmed Problem Hypertensive heart failure (43941096) Hypertensive heart disease with heart failure (I11.0) Active confirmed Problem Simple chronic bronchitis (49176841) Simple chronic bronchitis (J41.0) Active confirmed Problem Chronic respiratory failure (67647434) Chronic respiratory failure, unspecified whether with hypoxia or hypercapnia (J96.10) Active confirmed Problem Onychomycosis (200246149) Onychomycosis (B35.1) Active confirmed Problem Arteriosclerotic vascular disease (26824273) Arteriosclerotic cardiovascular disease (I25.10) Active confirmed Problem Congestive heart failure (48374002) Congestive heart failure, unspecified (I50.9) Active confirmed Problem Long-term current use of insulin (784191481) 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.4) Active confirmed Problem COPD - Chronic obstructive pulmonary disease (58507241) Chronic obstructive pulmonary disease, unspecified COPD type (J44.9) Active confirmed Problem Cigarette smoker (03319661) Cigarette smoker (F17.210) Active confirmed Problem Obese class II (431862647017279) BMI 37.0-37.9, adult (Z68.37) Active confirmed Problem Pneumonia (844133469) Pneumonia of both lower lobes due to infectious organism (J18.9) Active confirmed Problem Hyperglycemia due to type 2 diabetes mellitus (123363102054751) Type 2 diabetes mellitus with hyperglycemia, without long-term current use of insulin (E11.65) Active confirmed Problem Stasis dermatitis (disorder) (36392163) Stasis dermatitis of both legs (I87.2) Active confirmed Problem Obese class II (783098147663428) Adult BMI 35.0-35.9 kg/sq m (Z68.35) Active confirmed Problem Hyperglycemia due to type 2 diabetes mellitus (115606410643825) Type 2 diabetes mellitus with hyperglycemia, unspecified whether senior care insulin use (E11.65) Active confirmed Problem Plain X-ray of chest abnormal (finding) (5305635392) Abnormal chest x-ray (R93.89) Active confirmed Problem Diastolic dysfunction (7384081) Diastolic dysfunction (I51.89) Active confirmed Problem Gastroesophageal reflux disease (932260745) Gastroesophageal reflux disease, unspecified whether esophagitis present (K21.9) Active confirmed Problem Stasis dermatitis of lower limb due to chronic peripheral venous hypertension (disorder) (710947933) Stasis dermatitis of lower extremity due to chronic peripheral vascular hypertension (I87.329) Active confirmed Vital Signs Heart Rate 79 /min 11/22/2024 Blood pressure diastolic 90 mm Hg 11/22/2024 Height 70 in 11/22/2024 Blood pressure systolic 126 mm Hg 11/22/2024 Weight 251.4 lbs 11/22/2024 BMI 36.07 kg/m2 11/22/2024 Encounters Encounter Location Date Provider Diagnosis [address] [id number] 03/27/2024 Sera Allen Essential hypertensi on I10 ; Arteriosclerotic cardiovascular disease I25.10 ; Type 2 diabetes mellitus with other specified complication E11.69 ; Mixed hyperlipidemia E78.2 ; Screening PSA (prostate specific antigen) Z12.5 and Encounter for screening colonoscopy Z12.[address] [id number] 04/18/2024 Sera Allen Acute URI J06.9 and Bronchitis J40 [address] [id number] 08/28/2024 Sera Allen Intermittent diarrhe a R19.7 [...] obstructive pulmonary disease, unspecified COPD type J44.9 [facility] [address] [place], [place] [id number] 11/15/2024 Sera Crowdy Acute pneumonia J18. 9 ; Acute renal failure, unspecified acute renal failure type N17.9 ; Symptomatic hypotension I95.9 and Recurrent syncope R55 [facility] [address] [place], [place] [id number] 11/22/2024 Sera Crowdy Acute pneumonia J18. 9 ; Acute renal failure, unspecified acute renal failure type N17.9 ; Symptomatic hypotension I95.9 ; Recurrent syncope R55 and Essential hypertension I10 [facility] [address] [place], [place] [id number] 03/28/2024 Sera Crowdy [facility] [address] [place], [place] [id number] 04/18/2024 Sera Crowdy [facility] [address] [place], [place] [id number] 05/08/2024 Todd [place] Gastroesophageal ref lux disease, unspecified whether esophagitis present K21.9 [facility] [address] [place], [place] [id number] 07/26/2024 Todd [place] Lower extremity clifford a R60.0 [facility] [address] [place], [place] [id number] 08/09/2024 Todd [place] [facility] [address] [place], [place] [id number] 08/30/2024 Sera Crowdy [facility] [address] [place], [place] [id number] 11/21/2024 Sera Crowdy [facility] [address] [place], [place] [id number] 12/03/2024 Todd [place] Encounter for screen ing for lung cancer Z12.2 and Cigarette smoker [...] Will try to get discharge information from [facility]. Will recheck labs today. 11/15/2024 Acute pneumonia (ICD-10 - J18.9) Patient is finished with abx and WBC is normal. Will refrain from any further abx and get a repeat CXR. 11/22/2024 Acute pneumonia (ICD-10 - J18.9) Patient is finished with abx and WBC is normal. Will refrain from any further abx and get a repeat CXR. 12/03/2024 Cigarette smoker (ICD-10 - F17.210) 12/03/2024 Encounter for screening for lung cancer (ICD-10 - Z12.2) 11/22/2024 Acute renal failure, unspecified acute renal failure type (ICD-10 - N17.9) Renal function improved during admission. Will try to get discharge information from [facility]. Will recheck labs today. 11/15/2024 Symptomatic hypotension (ICD-10 - I95.9) BP has improved. Will remain off BP medication until he sees cardiology. 08/28/2024 Lower extremity edema (ICD-10 - R60.0) 03/27/2024 Type 2 diabetes mellitus with other specified complication (ICD-10 - E11.69) 03/27/2024 Mixed hyperlipidemia (ICD-10 - E78.2) 08/28/2024 Essential hypertension (ICD-10 - I10) 11/15/2024 Recurrent syncope (ICD-10 - R55) No further syncopal episodes. 11/22/2024 Symptomatic hypotension (ICD-10 - I95.9) BP has improved. Will remain off BP medication until he sees cardiology. 11/22/2024 Recurrent syncope (ICD-10 - R55) No further syncopal episodes. 08/28/2024 Arteriosclerotic cardiovascular disease (ICD-10 - I25.10) 03/27/2024 Screening PSA (prostate specific antigen) (ICD-10 - Z12.5) 08/28/2024 Screening PSA (prostate specific antigen) (ICD-10 - Z12.5) 03/27/2024 Encounter for screening colonoscopy (ICD-10 - Z12.11) 11/22/2024 Essential hypertension (ICD-10 - I10) Cardiology started him back on the toprol. Will start back on a low dose of losartan as BP readings at home have been high. 08/28/2024 Mixed hyperlipidemia (ICD-10 - E78.2) 08/28/2024 [...] Test Test Name Order Date colonoscopy 03/27/2024 LC-Comp. Metabolic Panel (14) 11/25/2020 CT Scan : Chest, low dose 12/03/2024 P-BNP (Brain Natriuretic Peptide) 2024 Next Appt Details Provider Name:Sera menezes, 02/21/2025 09:15:00 AM, [address], [address], [place], [place], [id number], Provider Name:Sera menezes, 02/28/2025 09:00:00 AM, [address], [address], [place], [id number], Insurance Providers Payer Name Payer Address Payer Phone Subscriber Number Group Number Insured Name Patient Relationship to Insured Coverage Start Date Coverage End Date [employer] [address] [place] [address] [phone] [id number] Milton Kohler Self - patient is the insured [employer] [address] [place] [address] [id number] Milton Kohler Self - patient is the insured Medical (General) History Medical History History ICD Code COPD enlarged heart HBP Depression, bipolar Arthritis T2DM Surgical History Surgery Date(Month/Year) Bilateral Knee 07/2006 Nerve Stimulator Knee x6 Back Hospitalization History Reason Date(Month/Year)
--- OUTSIDE RECORDS SUMMARY | 2024-12-17 13:13 | XMS_ITS | Clinical Summary ---
Author Organization [facility] Address [address] [place] [address] Care Team Providers Care Instrument Repair Technician Name Role Phone Provider, No Known Primary [...] 1 tablet by mouth Every Night. Active Active Problems Problem Noted Date Diagnosed Date Type 2 diabetes mellitus 11/07/2024 Tobacco use 11/07/2024 CAD 11/07/2024 GERD 11/07/2024 Bipolar disorder 11/07/2024 CKD 11/07/2024 COPD 11/07/2024 Resolved Problems Problem Noted Date Diagnosed Date Resolved Date Syncope and collapse 11/07/2024 025 Syncope 11/07/2024 11/11/2024 Encounters Date Type Department Care Team Description 12/06/2024 Readmission Management [facility] [address] [place] [address] Reva Dowling, YASIR 11/15/2024 Readmission Management [facility] [address] [place] [address] Janet Braun, YASIR 11/11/2024 Readmission Management [facility] [address] [place] [address] Marsha Bullock, YASIR 11/07/2024 2:10 PM EDT - 11/11/2024 11:27 AM EDT Hospital Encounter [facility] [address] [address] [facility] [place] [id number] Alexsander Branch MD Mueller, Joseph C, MD [...] 2 - PCV) 01/13/2024 1 INFLUENZA VACCINE 10/18/2024 01/22/2019 HEMOGLOBIN A1C 05/10/2025 11/07/2024 Procedures Procedure [...] 3:00 AM EDT POCT GLUCOSE FINGERSTICK Routine 025 7:37 PM EDT POCT GLUCOSE FINGERSTICK Routine 025 4:45 PM EDT POCT GLUCOSE FINGERSTICK Routine 025 12:16 PM EDT SCANNED - TELEMETRY 11/09/2024 7 :31 AM EDT POCT GLUCOSE FINGERSTICK Routine 025 7:21 AM EDT PHOSPHORUS Routine 11/09/2024 3:21 AM EDT MAGNESIUM Routine 11/09/2024 3:21 AM EDT CBC (NO DIFF) Routine 11/09/2024 3:21 AM EDT COMPREHENSIVE METABOLIC PANEL Routine 11/09/2024 3:21 AM EDT POCT GLUCOSE FINGERSTICK Routine 025 7:55 PM EDT RESPIRATORY PANEL PCR W/ COVID-19 (SARS-COV-2), OFFICE MOVER SWAB IN UTM/VTP, 2 HR TAT Routine [...] of21 resultswithin the time period is included. [facility] Signature Glucose 72 70 - 130 mg/dL 11/11/2024 8:01 AM EDT [facility] Comment:Serial Number: [id number] Blood 11/11/2024 7:55 AM EDT 11/11/2024 8:01 AM EDT Israel Jimenez MD POINT OF CARE TEST ORDERABLE S Final Result [facility]
[address] [place] [address], * (ABNORMAL) CBC (No Diff) (11/11/2024 5:14 AM EDT) Only the most recent of3 resultswithin the time period is included. WBC 7.92 3.40 - 10.80 10*3/mm3 11/11/2024 5:48 AM EDT [facility] RBC 4.69 4.14 - 5.80 10*6/mm3 11/11/2024 5:48 AM EDT [facility] Hemoglobin 13.4 13.0 - 17.7 g/dL 11/11/2024 5:48 AM EDT [facility] Hematocrit 42.9 37.5 - 51.0 % 11/11/2024 5:48 AM EDT [facility] MCV 91.5 79.0 - 97.0 fL 11/11/2024 5:48 AM EDT [facility] MCH 28.6 26.6 - 33.0 pg 11/11/2024 5:48 AM EDT [facility] MCHC 31.2(L) 31.5 - 35.7 g/dL 11/11/2024 5:48 AM EDT [facility] RDW 14.9 12.3 - 15.4 % 11/11/2024 5:48 AM EDT [facility] RDW-SD 50.1 37.0 - 54.0 fl 11/11/2024 5:48 AM EDT [facility] MPV 11.7 6.0 - 12.0 fL 11/11/2024 5:48 AM EDT [facility] Platelets 111(L) 140 - 450 10*3/mm3 11/11/2024 5:48 AM EDT [facility] Blood Venipuncture / Unknown 11/11/2024 5:14 AM EDT 11/11/2024 5:36 AM EDT us Israel Jimenez MD LAB BLOOD ORDERABLES Final R esult [facility]
[address] [id number], [place] [phone] * (ABNORMAL) Comprehensive Metabolic Panel (11/11/2024 5:14 AM EDT) Only the most recent of5 resultswithin the time period is included. Glucose 102(H) 65 - 99 mg/dL 11/11/2024 6:03 AM EDT [facility] BUN 19.4 6.0 - 20.0 mg/dL 11/11/2024 6:03 AM EDT [facility] Creatinine 1.38(H) 0.76 - 1.27 mg/dL 11/11/2024 6:03 AM EDT [facility] Sodium 142 136 - 145 mmol/L 11/11/2024 6:03 AM EDT [facility] Potassium 4.1 3.5 - 5.2 mmol/L 11/11/2024 6:03 AM EDT [facility] Comment:Slight hemolysis det ected by analyzer. Result may be falsely elevated. Chloride 104 98 - 107 mmol/L 11/11/2024 6:03 AM EDT [facility] CO2 28.0 22.0 - 29.0 mmol/L 11/11/2024 6:03 AM EDT [facility] Calcium 8.7 8.6 - 10.5 mg/dL 11/11/2024 6:03 AM EDT [facility] Total Protein 6.0 6.0 - 8.5 g/dL 11/11/2024 6:03 AM EDT [facility] Albumin 3.5 3.5 - 5.2 g/dL 11/11/2024 6:03 AM EDT [facility] ALT (SGPT) 41 1 - 41 U/L 11/11/2024 6:03 AM EDT [facility] AST (SGOT) 35 1 - 40 U/L 11/11/2024 6:03 AM EDT [facility] Alkaline Phosphatase 42 39 - 117 U/L 11/11/2024 6:03 AM T [facility] Total Bilirubin 0.3 0.0 - 1.2 mg/dL 11/11/2024 6:03 AM EDT [facility] Globulin 2.5 gm/dL 11/11/2024 6:03 AM T [facility] Comment:Calculated Result A/G Ratio 1.4 g/dL 11/11/2024 6:03 AM EDT [facility] BUN/Creatinine Ratio 14.1 7.0 - 25.0 11/11/2024 6:03 AM T [facility] Anion Gap 10.0 5.0 - 15.0 mmol/L 11/11/2024 6:03 AM T [facility] eGFR 59.6(L) >60.0 mL/min/1.7 3 11/11/2024 6:03 AM T [facility] Blood Venipuncture / Unknown 11/11/2024 5:14 AM EDT 11/11/2024 5:36 AM EDT [facility] - 11/11/2024 6:03 AM [...] MD LAB BLOOD ORDERABLES Final R esult [facility]
[address] [place] [address], * Telemetry Scan (11/10/2024 7:42 PM EDT) Only the most recent of3 resultswithin the time period is included. [facility] ECG ORDERABLES Final Result * XR Chest [...] MD 11/10/2024 9:32 AM EDT Workstation ID: [id number] Narrative 11/10/2024 9:32 AM EDT XR CHEST [...] MD 11/10/2024 9:32 AM EDT Workstation ID: [id number] us Israel Jimenez MD IMG DIAGNOSTIC IMAGING ORDER NAYE Final Result * (ABNORMAL) Phosphorus (11/09/2024 3:21 AM EDT) Only the most recent of3 resultswithin the time period is included. Phosphorus 2.0(L) 2.5 - 4.5 mg/dL 11/09/2024 5:17 AM EDT [facility] Blood Venipuncture / Unknown 11/09/2024 3:21 AM EDT 11/09/2024 4:14 AM EDT us Israel Jimenez MD LAB BLOOD ORDERABLES Final R esult Performing Organization Address City/[facility] Co de Phone Number [facility]
[address] [place] [address], * Magnesium (11/09/2024 3:21 AM EDT) Only the most recent of3 resultswithin the time period is included. Magnesium 2.0 1.6 - 2.6 mg/dL 11/09/2024 5:07 AM EDT [facility] Blood Venipuncture / Unknown 11/09/2024 3:21 AM EDT 11/09/2024 4:14 AM EDT us Israel Jimenez MD LAB BLOOD ORDERABLES Final R esult Performing Organization Address City/[facility] Co de Phone Number [facility]
[address] [place] [address], * Respiratory Panel PCR w/COVID-19(SARS-CoV-2) WALT/RADHA/YANI/PAD/COR/ANISHA In-House, OFFICE MOVER Swab in UTM/VTM, 2 HR TAT - Swab, Nasopharynx (11/08/2024 6:31 PM EDT) [facility] ADENOVIRUS, PCR Not Detected Not Detected BIOFIRE TORCH 11/08/2024 7:54 PM EDT [facility] Coronavirus 229E Not Detected Not Detected BIOFIRE TOR 11/08/2024 7:54 PM EDT [facility] Coronavirus HKU1 Not Detected Not Detected BIOFIRE TOR 11/08/2024 7:54 PM EDT [facility] Coronavirus NL63 Not Detected Not Detected BIOFIRE TOR 11/08/2024 7:54 PM EDT [facility] Coronavirus OC43 Not Detected Not Detected BIOFIRE TOR 11/08/2024 7:54 PM EDT [facility] COVID19 Not Detected Not Detected - Ref. Range BIOFIRE TOR 11/08/2024 7:54 PM EDT [facility] Human Metapneumovirus Not Detected Not Detected BIOFIRE TOR 11/08/2024 7:54 PM EDT [facility] Human Rhinovirus/Enterov irus Not Detected Not Detected BIOFIRE TOR 11/08/2024 7:54 PM EDT [facility] Influenza A PCR Not Detected Not Detected BIOFIRE TOR 11/08/2024 7:54 PM EDT [facility] Influenza B PCR Not Detected Not Detected BIOFIRE TOR 11/08/2024 7:54 PM EDT [facility] Parainfluenza Virus 1 Not Detected Not Detected BIOFIRE TOR 11/08/2024 7:54 PM EDT [facility] Parainfluenza Virus 2 Not Detected Not Detected BIOFIRE TOR 11/08/2024 7:54 PM EDT [facility] Parainfluenza Virus 3 Not Detected Not Detected BIOFIRE TOR 11/08/2024 7:54 PM EDT [facility] Parainfluenza Virus 4 Not Detected Not Detected BIOFIRE TOR 11/08/2024 7:54 PM EDT [facility] RSV, PCR Not Detected Not Detected BIOFIRE TOR 11/08/2024 7:54 PM EDT [facility] Bordetella pertussis pcr Not Detected Not Detected BIOFIRE TORCH 11/08/2024 7:54 PM EDT [facility] Bordetella parapertussis PCR Not Detected Not Detected BIOFIRE TOR 11/08/2024 7:54 PM EDT [facility] Chlamydophila pneumoniae PCR Not Detected Not Detected BIOFIRE TORCH 11/08/2024 7:54 PM EDT [facility] Mycoplasma pneumo by PCR Not Detected Not Detected BIOFIRE TOR 11/08/2024 7:54 PM EDT [facility] Swab Nasopharyngeal structure / Unknown Collection / Unknown 11/08/2024 6:31 PM EDT 11/08/2024 7:03 PM EDT [facility] - 11/08/2024 7:54 PM EDT [...] MICROBIOLOGY - GENERAL ORDE TOBY Final Result [facility]
[address] [place] [address], * Lactic Acid, Plasma (11/08/2024 6:28 PM EDT) Only the most recent of2 resultswithin the time period is included. Lactate 1.7 0.5 - 2.0 mmol/L 11/08/2024 7:00 PM EDT [facility] Comment:Falsely depressed re sults may occur on samples drawn from patients receiving N-Acetylcysteine (NAC) or Metamizole. Blood Venipuncture / Unknown 11/08/2024 6:28 PM EDT 11/08/2024 6:41 PM EDT us Dina Sanchez WIRE WEB WORKER LAB BLOOD ORDERABLES Final Result [facility]
[address] [place] [address], * CT Chest Without Contrast Diagnostic (11/08/2024 5:55 PM EDT) Anatomical Region Laterality Modality Chest N/A Computed Tomogra phy 11/09/2024 8:12 AM EDT Impressions 11/09/2024 8:16 AM EDT Impression: 1.Bilateral lower lung airspace disease suggestive of multifocal pneumonia. 2.Trace bilateral pleural effusions. Electronically Signed: Rah Mayberry MD 11/09/2024 8:16 AM EDT Workstation ID: [id number] Narrative 11/09/2024 8:[address] CHEST [...] MD 11/09/2024 8:16 AM EDT Workstation ID: [id number] us Israel Jimenez MD IMG CT ORDERABLES Final Resu lt * NM Lung Ventilation Perfusion (11/08/2024 5:42 PM EDT) Anatomical Region Laterality Modality Chest N/A Nuclear Medicine 11/08/2024 11:5 5 PM EDT Impressions 11/09/2024 12:02 AM EDT Low probability for pulmonary embolism Electronically Signed: Acosta Maxwell MD 11/09/2024 12:02 AM EDT Workstation ID: [id number] Narrative 11/09/2024 12:02 AM EDT DATE OF [...] MD 11/09/2024 12:02 AM EDT Workstation ID: [id number] us Israel Jimenez MD IMG NM ORDERABLES [...] - 99 mg/dL 11/08/2024 4:56 PM EDT [facility] BUN 30.5(H) 6.0 - 20.0 mg/dL 11/08/2024 4:56 PM EDT [facility] Creatinine 2.36(H) 0.76 - 1.27 mg/dL 11/08/2024 4:56 PM EDT [facility] Sodium 135(L) 136 - 145 mmol/L 11/08/2024 4:56 PM EDT [facility] Potassium 4.7 3.5 - 5.2 mmol/L 11/08/2024 4:56 PM EDT [facility] Comment:Specimen hemolyzed. Result may be falsely elevated. Chloride 99 98 - 107 mmol/L 11/08/2024 4:56 PM EDT [facility] CO2 24.4 22.0 - 29.0 mmol/L 11/08/2024 4:56 PM EDT [facility] Calcium 9.2 8.6 - 10.5 mg/dL 11/08/2024 4:56 PM EDT [facility] BUN/Creatinine Ratio 12.9 7.0 - 25.0 11/08/2024 4:56 PM EDT [facility] Anion Gap 11.6 5.0 - 15.0 mmol/L 11/08/2024 4:56 PM EDT [facility] eGFR 31.3(L) >60.0 mL/min/1.7 3 11/08/2024 4:56 PM T [facility] Blood Venipuncture / Unknown 11/08/2024 4:21 PM EDT 11/08/2024 4:28 PM EDT [facility] - 11/08/2024 4:56 PM EDT [...] MD LAB BLOOD ORDERABLES Final R esult [facility]
[address] [place] [address], * (ABNORMAL) CBC Auto Differential (11/08/2024 3:10 AM EDT) Only the most recent of2 resultswithin the time period is included. WBC 15.14(H) 3.40 - 10.80 10*3/mm3 11/08/2024 3:39 AM EDT [facility] RBC 5.17 4.14 - 5.80 10*6/mm3 11/08/2024 3:39 AM EDT [facility] Hemoglobin 14.7 13.0 - 17.7 g/dL 11/08/2024 3:39 AM EDT [facility] Hematocrit 45.7 37.5 - 51.0 % 11/08/2024 3:39 AM EDT [facility] MCV 88.4 79.0 - 97.0 fL 11/08/2024 3:39 AM EDT [facility] MCH 28.4 26.6 - 33.0 pg 11/08/2024 3:39 AM EDT [facility] MCHC 32.2 31.5 - 35.7 g/dL 11/08/2024 3:39 AM EDT [facility] RDW 15.1 12.3 - 15.4 % 11/08/2024 3:39 AM [facility] RDW-SD 49.2 37.0 - 54.0 [...] 0.10 - 0.90 10*3/mm3 11/08/2024 3:39 AM [facility] Eosinophils, Absolute 0.01 0.00 - 0.40 10*3/mm3 11/08/2024 3:39 AM [facility] Basophils, Absolute 0.01 0.00 - 0.20 10*3/mm3 11/08/2024 3:39 AM [facility] Immature Grans, Absolute 0.09(H) 0.00 - 0.05 10*3/mm3 11/08/2024 3:39 AM EDT [facility] nRBC 0.0 0.0 - 0.2 /100 WBC 11/08/2024 3:39 AM EDT [facility] Blood Venipuncture / Unknown 11/08/2024 3:10 AM EDT 11/08/2024 3:35 AM EDT Dina Sanchez WIRE WEB WORKER LAB BLOOD ORDERABLES Final Result Performing Organization Address [facility] de Phone Number [facility]
[address] [place] [address], * (ABNORMAL) STAT Lactic Acid, Reflex (11/08/2024 12:04 AM EDT) Only the most recent of3 resultswithin the time period is included. Lactate 2.6(HH) 0.5 - 2.0 mmol/L 11/08/2024 1:29 AM EDT [facility] Comment:Falsely depressed re sults may occur on samples drawn from patients receiving N-Acetylcysteine (NAC) or Metamizole. Blood Venipuncture / Unknown 11/08/2024 12:04 AM EDT 11/08/2024 1:01 AM EDT Dina Sanchez WIRE WEB WORKER LAB BLOOD ORDERABLES Final Result [facility]
[address] [place] [address], [place] [phone] * (ABNORMAL) Metanephrines, Pheochromocytoma Evaluation - Urine, [...] LAB - 11/16/2024 9:10 AM EDT Test(s) 343313-Trmbizqyxeosepy, Ur; [id number]-Ehgrclgaqckd, Ur was developed and its performance characteristics determined by [facility]. It has not been cleared or approved by the Food and Drug Administration. Performed at: [address] [id number] Flask Maker: Fay Conway MD, Phone: [phone] us Dina Sanchez WIRE WEB WORKER URINE ORDERABLES Final Resu lt [facility] [address] [place] [address], * Urinalysis, Microscopic Only - Urine, Clean Catch (11/07/2024 6:12 PM EDT) RBC, UA 0-2 None Seen, 0-2 /HPF 11/07/2024 6:43 PM EDT [facility] WBC, UA 0-2 None Seen, 0-2 /HPF 11/07/2024 6:43 PM EDT [facility] Comment:Urine culture not in dicated. Bacteria, UA None Seen None Seen /HPF 11/07/2024 6:43 PM EDT [facility] Squamous Epithelial Cells, UA 0-2 None Seen, 0-2 /HPF 11/07/2024 6:43 PM EDT [facility] Hyaline Casts, UA 13-20 None Seen /LPF 11/07/2024 6:43 PM EDT [facility] Methodology Automated Microscopy 11/07/2024 6:43 PM EDT [facility] Urine Urine specimen obtained by clean catch procedure / Unknown Collection / Unknown 11/07/2024 6:12 PM EDT 11/07/2024 6:33 PM EDT us Dina E Daniel WIRE WEB WORKER URINE ORDERABLES Final Resu lt [facility]
[address] [place] [address], * (ABNORMAL) Urinalysis With Culture If Indicated - Urine, Clean Catch (11/07/2024 6:12 PM EDT) Color, UA Yellow Yellow, Straw 11/07/2024 6:43 PM EDT [facility] Appearance, UA Clear Clear 11/07/2024 6:43 PM EDT [facility] pH, UA <=5.0 5.0 - 8.0 11/07/2024 6:43 PM EDT [facility] Specific [place], UA 1.013 1.005 - 1.030 11/07/2024 6:43 PM EDT [facility] Glucose, UA Negative Negative 11/07/2024 6:43 PM EDT [facility] Ketones, UA Negative Negative 11/07/2024 6:43 PM EDT [facility] Bilirubin, UA Negative Negative 11/07/2024 6:43 PM EDT [facility] Blood, UA Negative Negative 11/07/2024 6:43 PM EDT [facility] Protein, UA Trace(A) Negative 11/07/2024 6:43 PM EDT [facility] Leuk Esterase, UA Trace(A) Negative 11/07/2024 6:43 PM EDT [facility] Nitrite, UA Negative Negative 11/07/2024 6:43 PM EDT [facility] Urobilinogen, UA 0.2 E.U./dL 0.2 - 1.0 E.U./dL 11/07/2024 6:43 PM EDT [facility] Urine Urine specimen obtained by clean catch procedure / Unknown Collection / Unknown 11/07/2024 6:12 PM EDT 11/07/2024 6:33 PM EDT [facility] - 11/07/2024 6:43 PM EDT In absence of clinical symptoms, the presence of pyuria, bacteria, and/or nitrites on the urinalysis result does not correlate with infection. Dina Sanchez APRN URINE ORDERABLES Final Resu lt Performing Organization Address City/[facility]/ZIP Co de Phone Number [facility]
[address] [place] [address], [place] [phone] * Urea Nitrogen, Urine - Urine, Clean Catch (11/07/2024 6:12 PM EDT) Urea Nitrogen, Urine 119 mg/dL 11/08/2024 12:25 PM EDT [facility] Urine Urine specimen obtained by clean catch procedure / Unknown Collection / Unknown 11/07/2024 6:12 PM EDT 11/08/2024 7:51 AM EDT [facility] - 11/08/2024 12:25 PM EDT Reference intervals for random urine have not been established. Clinical usage is dependent upon physician's interpretation in combination with other laboratory tests. Israel Jimenez MD URINE ORDERABLES Final Resul t [facility]
[address] [place] [address], [place] [phone] * (ABNORMAL) Urine Drug Screen - Urine, Clean Catch (11/07/2024 6:12 PM EDT) THC, Screen, Urine Negative Negative 2024 6:47 PM EDT [facility] Phencyclidine (PCP), Urine Negative Negative 11/07/2024 6:47 PM EDT [facility] Cocaine Screen, Urine Negative Negative 11/07/2024 6:47 PM EDT [facility] Methamphetamine, Ur Negative Negative 11/07/2024 6:47 PM EDT [facility] Opiate Screen Negative Negative 11/07/2024 6:47 PM EDT [facility] Amphetamine Screen, Urine Negative Negative 11/07/2024 6:47 PM EDT [facility] Benzodiazepine Screen, Urine Positive(A) Negative 11/07/2024 6:47 PM EDT [facility] Tricyclic Antidepressants Screen Positive(A) Negative 11/07/2024 6:47 PM EDT [facility] Methadone Screen, Urine Negative Negative 11/07/2024 6:47 PM EDT [facility] Barbiturates Screen, Urine Negative Negative 11/07/2024 6:47 PM EDT [facility] Oxycodone Screen, Urine Negative Negative 11/07/2024 6:47 PM EDT [facility] Buprenorphine, Screen, Urine Negative Negative 11/07/2024 6:47 PM EDT [facility] Urine Urine specimen obtained by clean catch procedure / Unknown Collection / Unknown 11/07/2024 6:12 PM EDT 11/07/2024 6:34 PM EDT [facility] - 11/07/2024 6:47 PM EDT [...] Resu lt Performing Organization Address [facility] Co de Phone Number [facility]
[address] [place] [address], * Sodium, Urine, Random - Urine, Clean Catch (11/07/2024 6:12 PM EDT) Sodium, Urine 55 mmol/L 11/08/2024 8:11 AM EDT [facility] Urine Urine specimen obtained by clean catch procedure / Unknown Collection / Unknown 11/07/2024 6:12 PM EDT 11/08/2024 7:51 AM EDT [facility] - 11/08/2024 8:11 AM EDT Reference intervals for random urine have not been established. Clinical usage is dependent upon physician's interpretation in combination with other laboratory tests. Israel Jimenez MD URINE ORDERABLES Final Resul t Performing Organization Address [facility] Co de Phone Number [facility]
[address] [place] [address], * Fentanyl, Urine - Urine, Clean Catch (11/07/2024 6:12 PM EDT) Fentanyl, Urine Negative Negative 11/07/2024 7:00 PM EDT [facility] Urine Urine specimen obtained by clean catch procedure / Unknown Collection / Unknown 11/07/2024 6:12 PM EDT 11/07/2024 6:34 PM EDT [facility] - 11/07/2024 7:00 PM EDT [...] when unconfirmed results are used. Dina Sanchez WIRE WE[employer] WORKER URINE ORDERABLES Final Resu lt Performing Organization Address City/[facility]/ZIP Co de Phone Number [facility]
[address] [place] [address], [place] [phone] * Creatinine Urine Random (kidney function) GFR component - Urine, Clean Catch (11/07/2024 6:12 PM EDT) Creatinine, Urine 94.0 mg/dL 11/08/2024 12:25 PM EDT [facility] Urine Urine specimen obtained by clean catch procedure / Unknown Collection / Unknown 11/07/2024 6:12 PM EDT 11/08/2024 7:51 AM EDT [facility] - 11/08/2024 12:25 PM EDT Reference intervals for random urine have not been established. Clinical usage is dependent upon physician's interpretation in combination with other laboratory tests. Israel Jimenez MD URINE ORDERABLES Final Resul t Performing Organization Address [facility] Co de Phone Number [facility]
[address] [place] [address], [place] [phone] * Respiratory Culture - Sputum, Cough (11/07/2024 5:31 PM EDT) Respiratory Culture Scant growth (1+) Normal respiratory candace. No S. aureus or Pseudomonas aeruginosa detected. Final report. TRINI 11/09/2024 12:30 PM EDT [facility] Gram Stain Moderate (3+) WBCs per low power field 11/09/2024 12:30 PM EDT [facility] Gram Stain Rare (1+) Epithelial cells per low power field 11/09/2024 12:30 PM EDT [facility] Gram Stain No organisms seen 11/09/2024 12:30 PM EDT [facility] Sputum Coughed sputum specimen / Unknown Collection / Unknown 11/07/2024 5:31 PM EDT 11/07/2024 5:42 PM EDT Dina Sanchez APRN MICROBIOLOGY - GENERAL ORDE RABLES Final Result [facility]
[address] [place] [address], [place] [phone] [facility]
[address] [place] [address], * (ABNORMAL) High Sensitivity Troponin T 1Hr (11/07/2024 5:29 PM EDT) HS Troponin T 22(H) <22 ng/L 11/07/2024 6:17 PM EDT [facility] Troponin T Numeric Delta 0 ng/L 11/07/2024 6:17 PM EDT [facility] Troponin T % Delta 0 Abnormal if >/= 20% 11/07/2024 6:17 PM EDT [facility] Blood Venipuncture / Unknown 11/07/2024 5:29 PM EDT 11/07/2024 5:52 PM EDT Narrative [facility] - 11/07/2024 6:17 PM EDT High [...] Sanchez APRN LAB BLOOD ORDERABLES Final Result [facility]
[address] [place] [address], * Metanephrines, Frac. Free, Plasma (11/07/2024 5:29 PM EDT) Normetanephrine 186.7 0.0 - 244.0 pg/mL 11/11/2024 9:08 PM EDT [facility] Metanephrine 34.1 0.0 - 88.0 pg/mL 11/11/2024 9:08 PM EDT [facility] Blood Venipuncture / Unknown 11/07/2024 5:29 PM EDT 11/07/2024 5:55 PM EDT Narrative [facility] - 11/11/2024 9:08 PM EDT Test(s) [id number]-[id number], Pl; [id number]-Tcxgwshrjtxd, Pl was developed and its performance characteristics determined by [facility]. It has not been cleared or approved by the Food and Drug Administration. Performed at: [address] [id number] Flask Maker: Fay Conway MD, Phone: [phone] Dina Sanchez APRN LAB BLOOD ORDERABLES Final Result Performing Organization Address [facility] de Phone Number [facility] [address] [place] [address], * Aldosterone (11/07/2024 5:29 PM EDT) Pathologist [facility] Aldosterone 5.0 0.0 - 30.0 ng/dL 11/13/2024 11:11 AM EDT [facility] Blood Venipuncture / Unknown 11/07/2024 5:29 PM EDT 11/07/2024 5:53 PM EDT Narrative [facility] - 11/13/2024 11:11 AM EDT Test(s) [id number] was developed and its performance characteristics determined by [facility]. It has not been cleared or approved by the Food and Drug Administration. Performed at: [address] [id number] Flask Maker: Fay Conway MD, Phone: [phone] Dina Sanchez APRN LAB BLOOD ORDERABLES Final Result Performing Organization Address [facility]/ZIP Co de Phone Number [facility] [address] [place] [address], [place] [phone] * (ABNORMAL) Renin Direct Assay (11/07/2024 5:29 PM EDT) Renin Activity 10.521(H) 0.167 - 5.380 ng/mL/hr 11/18/2024 12:07 AM EDT [facility] Blood Venipuncture / Unknown 11/07/2024 5:29 PM EDT 11/07/2024 5:53 PM EDT Narrative [facility] - 11/18/2024 12:07 AM EDT Test(s) [id number] Activity, Plasma was developed and its performance characteristics determined by [facility]. It has not been cleared or approved by the Food and Drug Administration. Performed at: [address] [id number] Flask Maker: Fay Conway MD, Phone: [phone] Dina Sanchez APRN LAB BLOOD ORDERABLES Final Result Performing Organization Address [facility] de Phone Number [facility] [address] [place] [address], [place] [phone] * Blood Culture - Blood, Hand, Left (11/07/2024 5:29 PM EDT) Only the most recent of2 resultswithin the time period is included. [facility] Blood Culture No growth at 5 days 11/12/2024 6:01 PM EDT [facility] Blood Structure of left hand / Unknown Venipuncture / Unknown 11/07/2024 5:29 PM EDT 11/07/2024 6:00 PM EDT Dian Sanchez APRN MICROBIOLOGY - GENERAL ORDE RABLES Final Result Performing Organization Address City/[facility]/ZIP Co de Phone Number [facility]
[address] [place] [address], [place] [phone] * MRSA Screen, PCR (Inpatient) - Swab, Nares (11/07/2024 5:19 PM EDT) Pathologist [facility] MRSA PCR Negative Negative CEPHEID GENEXPERT 11/07/2024 6:38 PM EDT [facility] Swab Structure of anterior naris / Unknown Collection / Unknown 11/07/2024 5:19 PM EDT 11/07/2024 5:26 PM EDT Narrative [facility] - 11/07/2024 6:38 PM EDT The negative predictive value of this diagnostic test is high and should only be used to consider de-escalating anti-MRSA therapy. A positive result may indicate colonization with MRSA and must be correlated clinically. MRSA Negative Dina Sanchez APRN MICROBIOLOGY - GENERAL ORDE TOBY Final Result [facility]
[address] [place] [address], * ECHO COMPLETE W/ DOPPLER AND COLOR FLOW (11/07/2024 3:51 PM EDT) Pathologist [facility] EF(MOD-bp) 54.9 % LVIDd 4.7 cm LVIDs [...] aortic root is present. us Dina Sanchez WIRE WEB WORKER CV ECHO ORDERABLES Final Re sult * [...] previous ECGs available Confirmed by Mei Mccurdy ([id number]) on 11/11/2024 5:17:11 PM Referred By: Confirmed By: Mei Mccurdy us Dina Sanchez WIRE WEB WORKER ECG ORDERABLES Final Resul t ECG * (ABNORMAL) Procalcitonin (11/07/2024 3:08 PM EDT) Procalcitonin 0.38(H) 0.00 - 0.25 ng/mL 11/07/2024 4:24 PM EDT [facility] Blood Line / Unknown 11/07/2024 3: 08 PM EDT 11/07/2024 3:15 PM EDT [facility] - 11/07/2024 4:24 PM EDT [...] Day 4 values are available. Refer to http://[email or web address]-gpf-[email or web address] Change in PCT <=80% A decrease of [...] Sanchez APRN LAB BLOOD ORDERABLES Final Result [facility]
[address] [place] [address], [place] [phone] * (ABNORMAL) High Sensitivity Troponin T (11/07/2024 3:08 PM EDT) HS Troponin T 22(H) <22 ng/L 11/07/2024 4:30 PM EDT [facility] Blood Line / Unknown 11/07/2024 3: 08 PM EDT 11/07/2024 3:15 PM EDT Narrative [facility] - 11/07/2024 4:30 PM EDT High [...] Sanchez APRN LAB BLOOD ORDERABLES Final Result [facility]
[address] [phone], * Protime-INR (11/07/2024 3:08 PM EDT) Protime 14.5 12.2 - 15.3 Seconds 11/07/2024 4:07 PM EDT [facility] INR 1.07 0.89 - 1.12 11/07/2024 4:07 PM EDT [facility] Blood Line / Unknown 11/07/2024 3: 08 PM EDT 11/07/2024 3:15 PM EDT Dina Sanchez APRN LAB BLOOD ORDERABLES Final Result [facility]
[address] [place] [address], * BNP (11/07/2024 3:08 PM EDT) proBNP 74.0 0.0 - 900.0 pg/mL 11/07/2024 4:30 PM EDT [facility] Blood Line / Unknown 11/07/2024 3: 08 PM EDT 11/07/2024 3:15 PM EDT [facility] - 11/07/2024 4:30 PM EDT [...] >1800 Cai 300-1800 Negative <300 Dina Sanchez WIRE WEB WORKER LAB BLOOD ORDERABLES Final Result [facility]
[address] [place] [address], * Cortisol (11/07/2024 3:08 PM EDT) Cortisol 7.95 mcg/dL 11/07/2024 4:30 PM EDT [facility] Blood Line / Unknown 11/07/2024 3: 08 PM EDT 11/07/2024 3:15 PM EDT [facility] - 11/07/2024 4:30 PM EDT Cortisol Reference Ranges: Cortisol 6AM - 10AM Range: 6.02-18.40 mcg/dl Cortisol 4PM - 8PM Range: 2.68-10.50 mcg/dl Results may be falsely increased if patient taking Biotin. Dina Sanchez WIRE WEB WORKER LAB BLOOD ORDERABLES Final Result Performing Organization Address City/[facility]/ZIP Co de Phone Number [facility]
[address] [place] [address], [place] [phone] * (ABNORMAL) Hemoglobin A1c (11/07/2024 3:00 PM EDT) Hemoglobin A1C 5.89(H) 4.80 - 5.60 % 11/07/2024 5:36 PM EDT [facility] Blood Line / Unknown 11/07/2024 3: 00 PM EDT 11/07/2024 3:04 PM EDT Narrative [facility] - 11/07/2024 5:36 PM EDT Hemoglobin A1C Ranges: Increased Risk for Diabetes 5.7% to 6.4% Diabetes >= 6.5% Diabetic Goal < 7.0% Dina Goodeheather WIRE WEB WORKER LAB BLOOD ORDERABLES Final Result Performing Organization Address [facility]/ZIP Co de Phone Number [facility]
[address] [place] [address], * CT Outside Head (11/07/2024 2:56 PM [...] Final Result from Last 3 Months Insurance [place] [id number] [facility] MEDICARE ADVANTAGE HMO Advance Directives * CPR (Attempt to Resuscitate) (Latest Code Status on File) Date Activated Date Inactivated Comments 11/07/2024 2:44 PM 11/11/2024 1:37 PM Question Answer Comments Code Status (Patient has no pulse and is not breathing): CPR (Attempt to Resuscitate) Medical Interventions (Patie nt has pulse or is breathing): Full Support Care Teams Instrument Repair Technician Relationship Specialty Start Date End Date Provider, No Known [facility] [place] [address] PCP - General 11/07/24
--- OUTSIDE RECORDS SUMMARY | 2024-12-17 13:13 | XMS_ITS | Encounter Summary ---
[facility] Address [address] [place] [address] Care Team Providers Care Handicraft Or Hobby Shop Manager Name Role Phone Provider, No Known Primary Care Provider Unavail able Encounter Details Date Type Department Care Team (Late st Contact Info) Description 11/11/2024 Readmission Management [facility] [address] [place] [phone] Marsha Bullock, RN Social History Tobacco [...] or training? Not on file Preferred Language [place]orese 11/08/2024 Sex and Gender Information Value Date Recorded Sex Assigned at Not on file Legal Sex Male 11:35 AM EDT Gender Identity Not on file Sexual Orientation Not on file documented as of this encounter Miscellaneous Notes * Outreach Note - Marsha Bullock, RN - 11/11/2024 6:29 PM EDT Prep Survey Flowsheet Row Responses [facility] patient discharged from? [place] Is LACE score less than 10 ? No Eligibility Readm Mgmt Discharge diagnosis Syncope Does the patient have one of the following disease processes/diagnoses(primary or secondary)? Other Prep survey completed? Yes Marsha Masters - Registered Nurse documented in this encounter Plan of Treatment Not on file documented as of this encounter Visit Diagnoses Not on filedocumented in this encounter Care Teams Handicraft Or Hobby Shop Manager Relationship Specialty Start Date End Date [place], [place] [address] PCP - General 11/07/24 documented as of this encounter
== END 2024-12-17 23:59 | disposition home or self-care (01) ==
LOC: RAD 13:08
PROVIDERS: PCP Physician Assistant; Visit Provider Family Medicine
DX: Z12.2 Encounter for screening for malignant neoplasm of respiratory organs (principal); F17.210 Nicotine dependence, cigarettes, uncomplicated; I70.0 Atherosclerosis of aorta
CPT/HCPCS: 71271